=== PATIENT | female | born 1950 | race Caucasian/White ===

== ENCOUNTER 2019-03-05 07:14 | Day surgery (SDC) | payer MEDICARE ==
[~2019-03-05] VITALS: Ht 162.6 cm; Wt 109.1 kg
[2019-03-05] VITALS (9 sets, daily range): BP systolic 133–173; BP diastolic 63–83
[~2019-03-05 07:14] MED LIST: ACHD5005 PO; B/P PILL; CEPH500C PO; CYCL10TA9 PO; DICL75TA2 PO; FURO20TA4 PO; GLIP10TA13 PO; GUAI5LIQ3 PO; HYDR-4226 PO; HYDR-757 PO; HYDR12.56 PO; IBP800T PO; METF-397 PO; NF-SOLIF5T PO; OXYB5TAB9 PO; OXYC1TAB87 PO; POTA99TA21 PO; PRD10T PO; PRD20T PO; PROP1TAB77 PO; QUIN20TA PO; ROPI2TAB3 PO; TRAM50TA2 PO; VENL75TA2 PO; [UNRECOGNIZED DRUG - REMARK]
[2019-03-05] MEDS ORDERED: NS IV 1000 ML 1,000 ML IV STA (07:26)
[2019-03-05] MEDS ORDERED: fentaNYL INJECTION 100 MCG/2 ML AMP IVP STA ×2 (07:26→09:19)
[2019-03-05 07:30] LABS: BASOPHILS % (AUTO) 0 % (0-10); EOSINOPHILS % (AUTO) 0 % (0-10); HEMATOCRIT 41 % (35-52); HEMOGLOBIN 14.1 G/DL (11.5-16.0); LYMPHOCYTES # (AUTO) 1.4 X 10^3 (1.0-4.0); LYMPHOCYTES % (AUTO) 11 % (12-44); MEAN CORPUSCULAR HEMOGLOBIN 29 PG (25-34); MEAN CORPUSCULAR HGB CONC 34 G/DL (32-36); MEAN CORPUSCULAR VOLUME 84 FL (80-99); MEAN PLATELET VOLUME 9.5 FL (7.4-10.4); MONOCYTES # (AUTO) 0.6 X 10^3 (0.0-1.0); MONOCYTES % (AUTO) 5 % (0-12); NEUTROPHILS # (AUTO) 10.2 X 10^3 (1.8-7.8); NEUTROPHILS % (AUTO) 83 % (42-75); PLATELET COUNT 280 10^3/uL (130-400); RED CELL DISTRIBUTION WIDTH 14.2 % (10.0-14.5); WHITE BLOOD COUNT 12.2 10^3/uL (4.3-11.0)
[2019-03-05] MEDS ORDERED: ONDANSETRON 4 MG/2 ML (SDV) Z0FRAN IVP ONE (07:30)
[2019-03-05] MEDS ORDERED: ASPIRIN 81 MG CHEW (CHILDREN'S ASA) PO ONE (07:30)
[2019-03-05 07:42] LABS: INR 0.9 (0.8-1.4); PROTHROMBIN TIME PATIENT 12.9 SEC (12.2-14.7)
[2019-03-05 07:49] LABS: ALANINE AMINOTRANSFERASE 10 U/L (0-55); ALBUMIN 4.2 GM/DL (3.2-4.5); ALKALINE PHOSPHATASE 98 U/L (40-136); BILIRUBIN,TOTAL 0.4 MG/DL (0.1-1.0); BUN/CREATININE RATIO 17; CALCIUM 10.2 MG/DL (8.5-10.1); CARBON DIOXIDE 23 MMOL/L (21-32); CHLORIDE 101 MMOL/L (98-107); CREATININE SERUM 0.77 MG/DL (0.60-1.30); GFR ESTIMATED > 60; GLUCOSE 148 MG/DL (70-105); MAGNESIUM 1.5 MG/DL (1.8-2.4); SODIUM 137 MMOL/L (135-145); TOTAL PROTEIN 7.7 GM/DL (6.4-8.2)
--- NOTE | 2019-03-05 07:52 | ED Chest Pain ---
General Chief Complaint: Chest Pain Stated Complaint: CHEST PAIN Nursing Triage Note: PT PRESENTS TO ED FROM HOME WITH COMPLAINTS OF MEDIAL CP AND EPIGASTRIC PAIN THAT WRAPS AROUND TO HER BACK STARTING AT 1200 THIS AM. PT REPORTS SHE FIRST BECAME NAUSEATED AND STARTED VOMITING THEN SHE DEVELOPED THE CP. Nursing Sepsis Screen: No Definite Risk Source: patient Exam Limitations: no limitations History of Present Illness Date Seen by Provider: Mar 05, 2019 Time Seen by Provider: 07:19 Initial Comments Here with complaint of central chest pain and epigastric pain that radiates to her back. Started about midnight and has persisted until now. States that she at [employer] last night and tonight but then started having the pain a few hours later that has persisted. States that she has had nausea and vomiting. Pain seems to be more in the right upper quadrant and epigastric region now. Timing/Duration: other (8 hours) Severity/Quality: moderate, aching, pressure Location: central Radiation: back Activities at Onset: none Prior CP/Workup: no prior chest pain, no prior cardiac workup ASA po CONDEMNATION ENGINEER: No NTG SL CONDEMNATION ENGINEER: No Associated Symptoms: abdominal pain, back pain; No diaphoresis, No fever/chills; nausea/vomiting, shortness of breath, weakness Allergies and Home Medications Allergies Coded Allergies: codeine (Unverified Adverse Reaction, Severe, NAUSEA, 03/14/16) Home Medications Metformin HCl 500 Mg Tablet, 500 MG PO BID, (Reported) Oxycodone HCl/Acetaminophen 1 Each Tablet, 1 EACH PO Q4H Prescribed by: AURA CASTILLO on 03/22/161944 Quinapril HCl 20 Mg Tablet, 20 MG PO DAILY, (Reported) Venlafaxine HCl 75 Mg Tab.er.24, 75 MG PO DAILY, (Reported) Patient Home Medication List Home Medication List Reviewed: Yes Review of Systems Review of Systems Constitutional: see HPI; No chills, No fever EENTM: No Symptoms Reported Respiratory: See HPI; Denies Cough, Denies Wheezing Cardiovascular: Chest Pain; Denies Edema Gastrointestinal: See HPI, Abdominal Pain Genitourinary: No Symptoms Reported Musculoskeletal: see HPI, back pain; No muscle pain Skin: no symptoms reported Psychiatric/Neurological: No Symptoms Reported All Other Systems Reviewed Negative Unless Noted: Yes Past Sjyygqf-[id number]-Gxfqmg Hx Past Med/Social Hx: Reviewed Nursing Past Med/Soc Hx Patient Social History Alcohol Use: Denies Use Recreational Drug Use: No Smoking Status: Never a Smoker Recent Foreign Travel: No Contact w/Someone Who Travel: No Recent Infectious Disease Expo: No Recent Hopitalizations: No Immunizations Up To Date Tetanus Booster (TDap): Unknown Date of Pneumonia Vaccine: Aug 26, 2012 Date of Influenza Vaccine: May 26, 2015 Seasonal Allergies Seasonal Allergies: No Past Medical History Surgeries: Yes (LEFT CARPAL TUNNEL, RIGHT TOTAL KNEE) Orthopedic Respiratory: No Cardiac: Yes High Cholesterol, Hypertension Neurological: No Reproductive Disorders: No Female Reproductive Disorders: Denies 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 Sexually Transmitted Disease: No HIV/AIDS: No Genitourinary: Yes UTI-Chronic Gastrointestinal: Yes Gastroesophageal Reflux Musculoskeletal: Yes (PINCHED NERVE IN BACK, 2 BULGING DISCS, OSTEOARTHRITIS IN LEFT KNEE) Degenerate Disk Disease, Arthritis, Chronic Back Pain Endocrine: Yes Diabetes, Non-Insulin dep Loss of Vision: Bilateral Hearing Impairment: Denies Cancer: No Psychosocial: Yes Depression Integumentary: No Blood Disorders: No Adverse Reaction/Blood Tranf: No (N/A) Family Medical History Reviewed Nursing Family Hx Arthritis 19 MOTHER Cardiovascular disease 19 FATHER Dementia 19 MOTHER Diabetes mellitus 19 MOTHER G8 BROTHER Hypertension 19 MOTHER G8 BROTHER Physical Exam Vital Signs Vital Signs - First Documented 03/05/19 07:27 Temp 99.1 Pulse 59 Resp 18 B/P (MAP) 160/91 (114) Pulse Ox 97 O2 Delivery Room Air Capillary Refill : Less Than 3 Seconds Height, Weight, BMI Height: 5'4.00" Weight: 240lbs. 9.0oz. 109.739226fp; 42.2 BMI Method:Stated General Appearance: No Apparent Distress, Mild Distress HEENT: PERRL/EOMI, Pharynx Normal Neck: Non Tender, Supple Respiratory: Lungs Clear, Normal Breath Sounds Cardiovascular: Regular Rate, Rhythm, No Murmur Gastrointestinal: Soft, Tenderness (epigastric and right upper quadrant region) Extremity: Normal Inspection, Normal Range of Motion, Non Tender Neurologic/Psychiatric: Alert, Oriented x3 Skin: Normal Color, Warm/Dry Progress/Results/Core Measures Results/Orders Lab Results Laboratory Tests Test 03/05/19 07:20 Range/Units White Blood Count 12.2 H 4.3-11.0 10^3/uL Red Blood Count 4.92 4.35-5.85 10^6/uL Hemoglobin 14.1 11.5-16.0 G/DL Hematocrit 41 35-52 % Mean Corpuscular Volume 84 80-99 FL Mean Corpuscular Hemoglobin 29 25-34 PG Mean Corpuscular Hemoglobin Concent 34 32-36 G/DL Red Cell Distribution Width 14.2 10.0-14.5 % Platelet Count 280 130-400 10^3/uL Mean Platelet Volume 9.5 7.4-10.4 FL Neutrophils (%) (Auto) 83 H 42-75 % Lymphocytes (%) (Auto) 11 L 12-44 % Monocytes (%) (Auto) 5 0-12 % Eosinophils (%) (Auto) 0 0-10 % Basophils (%) (Auto) 0 0-10 % Neutrophils # (Auto) 10.2 H 1.8-7.8 X 10^3 Lymphocytes # (Auto) 1.4 1.0-4.0 X 10^3 Monocytes # (Auto) 0.6 0.0-1.0 X 10^3 Eosinophils # (Auto) 0.0 0.0-0.3 10^3/uL Basophils # (Auto) 0.0 0.0-0.1 10^3/uL Prothrombin Time 12.9 12.2-14.7 SEC INR Comment 0.9 0.8-1.4 Activated Partial Thromboplast Time 27 24-35 SEC Sodium Level 137 135-145 MMOL/L Potassium Level 4.0 3.6-5.0 MMOL/L Chloride Level 101 98-107 MMOL/L Carbon Dioxide Level 23 21-32 MMOL/L Anion Gap 13 5-14 MMOL/L Blood Urea Nitrogen 13 7-18 MG/DL Creatinine 0.77 0.60-1.30 MG/DL Estimat Glomerular Filtration Rate > 60 BUN/Creatinine Ratio 17 Glucose Level 148 H 70-105 MG/DL Calcium Level 10.2 H 8.5-10.1 MG/DL Corrected Calcium 10.0 8.5-10.1 MG/DL Magnesium Level 1.5 L 1.8-2.4 MG/DL Total Bilirubin 0.4 0.1-1.0 MG/DL Aspartate Amino Transf (AST/SGOT) 17 5-34 U/L Alanine Aminotransferase (ALT/SGPT) 10 0-55 U/L Alkaline Phosphatase 98 40-136 U/L Myoglobin 91.5 10.0-92.0 NG/ML Troponin I < 0.028 <0.028 NG/ML Total Protein 7.7 6.4-8.2 GM/DL Albumin 4.2 3.2-4.5 GM/DL Lipase 8 8-78 U/L My Orders Orders - CHRISTOPHER THOMPSON MD Cbc With Automated Diff (03/05/19 07:21) Magnesium (03/05/19 07:21) Chest 1 View, Ap/Pa Only (03/05/19 07:21) Ekg Tracing (03/05/19 07:21) Cardiac Profile 1 (03/05/19 07:21) Comprehensive Metabolic Panel (03/05/19 07:) Myoglobin Serum (03/05/19:) Protime With Inr (03/05/19:) Partial Thromboplastin Time (03/05/19 07:21) O2 (03/05/19 07:) Monitor-Rhythm Ecg Trace Only (03/05/19 07:) Lipid Panel (03/06/19 06:00) Ed Iv/Invasive Line Start (03/05/19 07:21) Aspirin Chewable Tablet (Baby Aspirin Ch (03/05/19 07:30) Ondansetron Injection (Zofran Injectio (03/05/19 07:30) Ns Iv 1000 Ml (Sodium Chloride 0.9%) (03/05/19 07:26) Fentanyl Injection (Sublimaze Injection (03/05/19 07:26) Lipase (03/05/19 07:26) Us Gallbladder [id number] (03/05/19 08:19) Fentanyl Injection (Sublimaze Injection (03/05/19 09:19) Medications Given in ED Current Medications Medications Dose Ordered Sig/Melvin Route Start Time Stop Time Status Last Admin Dose Admin Aspirin 324 mg ONCE ONCE PO 03/05/19 07:30 03/05/19 07:31 DC 03/05/19 07:39 324 MG Ondansetron HCl 4 mg ONCE ONCE IVP 03/05/19 07:30 03/05/19 07:31 DC 03/05/19 07:38 4 MG Vital Signs/I&O 03/05/19 03/05/19 07:27 07:27 Temp 99.1 Pulse 59 Resp 18 B/P (MAP) 160/91 (114) Pulse Ox 97 O2 Delivery Room Air Blood Pressure Mean: 114 Progress Progress Note : Progress Note Seen and evaluated. IV, labs, EKG and chest x-ray ordered. ASA 324 mg by mouth ordered. Zofran 4 mg IV, fentanyl 50 g IV and normal saline 1 L bolus ordered. Mixed picture presentation for abdominal and cardiac. We will evaluate both. 0922: Gallbladder ultrasound was ordered due to persistence of pain. This was positive for multiple stones including down to the gallbladder neck. I discussed the case with Dr. Smyth. Patient is requiring repeat dosing of pain medicine and 50 g of fentanyl IV was ordered. He will admit the patient and likely take her to the OR for cholecystectomy. This was discussed with the patient who agrees. Admit, SDC status. Initial ECG Impression Date: Mar 05, 2019 Initial ECG Impression Time: 07:20 Initial ECG Rate: 57 Initial ECG Rhythm: Normal Sinus Comment Sinus rhythm with right bundle branch block and left anterior fascicular block. This is changed from previous of 07 September 2015 although seems to be slight progression only. No evidence of ST elevation DE. Interpreted by me. Departure Communication (Admissions) Time/Spoke to Admitting Phy: 09:22 Impression Primary Impression: Cholelithiasis Qualified Codes: K80.20 - Calculus of gallbladder without cholecystitis without obstruction Additional Impression: Right upper quadrant abdominal pain Disposition: ADMITTED INPATIENT Condition: Stable Admissions Decision to Admit Reason: Admit from ER (General) Decision to Admit/Date: Mar 05, 2019 Time/Decision to Admit Time: 09:22 Departure-Patient Inst. Referrals: PHILIP CATHERINE MD (PCP) Primary Care Physician AARON DWYER (Family) Primary Care Physician CHRISTOPHER THOMPSON MD Mar 05, 2019 07:52
--- NOTE | 2019-03-05 08:16 | Diagnostic Imaging Report ---
Portable erect AP chest at 746 hours. INDICATION: Preop total knee replacement. FINDINGS: Heart size is within normal limits and stable when compared to 09/07/2015. The lungs are clear. There is no evidence for failure, pneumonia or for pleural effusion. Mediastinum is not widened. The osseous structures are intact. IMPRESSION: There is no evidence for active disease. Dictated by: Dictated on workstation # [id number]
--- NOTE | 2019-03-05 10:12 | Diagnostic Imaging Report ---
PROCEDURE: US Gallbladder. TECHNIQUE: Multiple real-time grayscale images were obtained over the right upper quadrant in various projections. INDICATION: Right upper quadrant pain. FINDINGS: The liver is measuring 20 cm, its echotexture mildly elevated. Mild steatosis suspected. No focal mass or mass effect. There are stones in the gallbladder. The majority of the stones showed mobility however a calculus at the level of the gallbladder neck was not mobile. The Weathers's sign was reportedly negative and there is no ascites or pericholecystic fluid. No distention of the intrahepatic bile ducts. The extrahepatic duct was obscured by gas as was the pancreas. The unobstructed right kidney appeared normal. The gallbladder wall was non-thickened. IMPRESSION: Cholelithiasis without biliary dilatation, likely mild hepatic steatosis. Dictated by: Dictated on workstation # [id number]
--- NOTE | 2019-03-05 10:17 | Progress Note-Pre Operative ---
Pre-Operative Progress Note H&P Reviewed The H&P was reviewed, patient examined and no changes noted. Date Seen by Provider: Mar 05, 2019 Time Seen by Provider: 10:15 Date H&P Reviewed: Mar 05, 2019 Time H&P Reviewed: 10:15 Pre-Operative Diagnosis: symptomatic chronic calculous cholecystitis KARLOS ALEJO MD Mar 05, 2019 10:17
--- OUTSIDE RECORDS SUMMARY | 2019-03-05 10:38 | XMS REPORT ---
Author Author Migration, Doctor Organization [facility] Address Unknown Phone Unavailable Care Team Providers Care Deputy Sheriff Custody Name Role Phone Migration, Doctor Unavailable Unavailable PROBLEMS Type Condition ICD9-CM Code DRF46-DS Code Onset Dates Condition Status SNOMED Code Problem Controlled restless leg syndrome G25.81 Active 30130282 Problem GERD (gastroesophageal reflux disease) K21.9 Active 078838703 Problem Mild single current episode of major depressive disorder F32.0 Active 24908789 Problem Recurrent major depressive disorder, in full remission F33.42 Active 54904176 Problem Benign essential HTN I10 Active 3810246 Problem Low back pain M54.5 Active 957622554 Problem Morbid (severe) obesity due to excess calories E66.01 Active 698140244 Problem OAB (overactive bladder) N32.81 Active 588296519 Problem Other chronic pain G89.29 Active 35202306 Problem Type 2 diabetes mellitus without complication, without long-term current use of insulin E11.9 Active [id number] ALLERGIES No Information ENCOUNTERS Encounter Location Date Diagnosis [place] [id number] [place] [address] Jan, Type 2 diabetes mellitus without complication, without long-term current use of insulin E11.9 ; Benign essential HTN I10 ; Low back pain M54.5 and Morbid obesity E66.01 [facility] [place] [id number] [place] [address] Jan, Degenerative arthritis of knee M17.9 [facility] [place] [address] [address] Jan, [facility] [place] [id number] [place] [address] Jan, [facility] [place] [address] [address] December, Degenerative arthritis of knee M17.9 [facility] [place] [id number] [place] [address] December, Type 2 diabetes mellitus with diabetic peripheral angiopathy without gangrene, without long-term current use of insulin E11.51 [facility] [place] [address] [place] [id number] [place] [address] December, [facility] [place] [address] [place] [address] [id number] [place] [address] December, Degenerative arthritis of knee M17.9 [facility] [place] [address] [place] [address] [id number] [place] [address] Nov, Mild single current episode of major depressive disorder F32.0 [facility] [place] [address] [place] [id number] [place] [address] Nov, Degenerative arthritis of knee M17.9 [facility] [place] [address] [place] [id number] [place] [address] Oct, Type 2 diabetes mellitus without complication, without long-term current use of insulin E11.9 ; Low back pain M54.5 ; Other chronic pain G89.29 ; Recurrent major depressive disorder, in full remission F33.42 and Benign essential HTN I10 [facility] [place] [id number] [place] [address] Oct, Degenerative arthritis of knee M17.9 [facility] [place] [address] [place] [id number] [place] [address] Sep, Degenerative arthritis of knee M17.9 [facility] [place] [address] [place] [address] [id number] [place] [address] Sep, [facility] [place] [address] [place] [id number] [place] [address] Aug, Degenerative arthritis of knee M17.9 [facility] [place] [id number] [place] [address] Aug, [facility] [address] [address] Jul, Dysuria R30.0 ; Acute cystitis without hematuria N30.00 ; Vaginal odor N89.8 and BMI 40.0-44.9, adult Z68.41 [place] [address] [address] Jul, [place] [address] [address] Jul, Degenerative arthritis of knee M17.9 [place] [address] [address] Jun, Degenerative arthritis of knee M17.9 [place] [address] [address] Jun, Degenerative arthritis of knee M17.9 [place] [address] [address] Jun, Benign essential HTN I10 ; Type 2 diabetes mellitus without complication, without long-term current use of insulin E11.9 ; Acute cystitis without hematuria N30.00 ; Low back pain M54.5 ; Other chronic pain G89.29 and BMI 40.0- 44.9, adult Z68.41 [place] [address] [address] May, Neuroma of foot D36.13 and 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 [place] [address] [address] May, Degenerative arthritis of knee M17.9 [place] [address] [address] May, Encounter for immunization Z23 [place] [address] [address] Apr, [place] [address] [address] Apr, Degenerative arthritis of knee M17.9 [facility] [place] [address] [address] Mar, Degenerative arthritis of knee M17.9 [facility] [place] [address] [place] [address] Mar, Type 2 diabetes mellitus with diabetic peripheral angiopathy without gangrene, without long-term current use of insulin E11.51 ; Benign essential HTN I10 ; Degenerative arthritis of knee M17.9 and Mild single current episode of major depressive disorder F32.0 [facility] [place] [address] [place] [id number] [place] [address] Feb, [place] [address] [place] [id number] [place] [address] Feb, Degenerative arthritis of knee M17.9 [place] [address] [place] [id number] [place] [address] Feb, [facility] [place] [address] [place] [id number] [place] [address] Jan, Degenerative arthritis of knee M17.9 [place] [address] [place] [id number] [place] [address] Jan, Herpes zoster without complication B02.9 and BMI 40.0-44.9, adult Z68.41 [place] [address] [place] [address] December, Degenerative arthritis of knee M17.9 [place] [address] [address] Nov, Benign essential HTN I10 ; Type 2 diabetes mellitus with diabetic peripheral angiopathy without gangrene, without long-term current use of insulin E11.51 ; Mild single current episode of major depressive disorder F32.0 ; Degenerative arthritis of knee M17.9 ; OAB (overactive bladder) N32.81 ; Body mass index (BMI) of 40.0-44.9 in adult Z68.41 ; BMI 40.0-44.9, adult Z68.41 and GERD (gastroesophageal reflux disease) K21.9 [place] [address] [place] [address] Nov, [place] [address] [place] [id number] [place] [address] Oct, Degenerative arthritis of knee M17.9 [place] [address] [place] [id number] [place] [address] Oct, [place] [address] [place] [id number] [place] [address] Oct, Type 2 diabetes mellitus with diabetic peripheral angiopathy without gangrene, without long-term current use of insulin E11.51 and Controlled substance agreement signed Z79.899 [place] [address] [place] [id number] [place] [address] Oct, Degenerative arthritis of knee M17.9 [place] [address] [place] [id number] [place] [address] Sep, Type 2 diabetes mellitus with diabetic peripheral angiopathy without gangrene, without long-term current use of insulin E11.51 ; Benign essential HTN I10 ; BMI 40.0-44.9, adult Z68.41 ; Mild single current episode of major depressive disorder F32.0 ; OAB (overactive bladder) N32.81 ; Degenerative arthritis of knee M17.9 and GERD (gastroesophageal reflux disease) K21.9 [place] [address] [place] [address] Aug, Joint pain and swelling due to Lyme disease A69.20 [place] [address] [place] [id number] [place] [address] Jun, [place] [address] [place] [id number] [place] [address] May, 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 ; Benign essential HTN I10 ; 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 ; Body mass index (BMI) of 40.0-44.9 in adult Z68.41 and Morbid (severe) obesity due to excess calories E66.01 [place] [address] [place] [id number] [place] [address] May, Encounter for immunization Z23 [place] [address] [place] [id number] [place] [address] May, 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 [place] [address] [place] [id number] [place] [address] Mar, Mild single current episode of major depressive disorder F32.[address] [address] Mar, Joint pain and swelling due to Lyme disease A69.20 [place] [id number] [place] [address] Feb, Izzy infection B37.9 [place] [id number] [place] [address] Jan, Insect bite (nonvenomous) of abdominal wall, initial encounter S30.861A and Joint pain and swelling due to Lyme disease A69.20 [place] [address] [place] [id number] [place] [address] Jan, [place] [address] [place] [id number] [place] [address] Sep, Mild single current episode of major depressive disorder F32.0 and 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 [place] [address] [place] [address] Sep, Controlled restless leg syndrome G25.81 and Cramp of both lower extremities R25.2 [place] [address] [place] [id number] [place] [address] Aug, 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 ; Controlled restless leg syndrome G25.81 ; SI (stress incontinence), female N39.3 ; Benign essential HTN I10 ; 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 ; GERD (gastroesophageal reflux disease) K21.9 ; Screening cholesterol level Z13.220 and Mild single current episode of major depressive disorder F32.0 [place] [address] [address] 11 Aug, 2016 [place] [address] [place] [id number] [place] [address] May, [place] [address] [place] [id number] [place] [address] May, Encounter for immunization Z23 [place] [address] [address] Apr, [place] [address] [place] [id number] [place] [address] Apr, [place] [address] [place] [id number] [place] [address] Apr, SAMANTHA (secretory otitis media), right H65.91 ; 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 ; Controlled restless leg syndrome G25.81 ; Edema extremities R60.0 ; SI (stress incontinence), female N39.3 ; Benign essential HTN I10 ; Degenerative arthritis of knee M17.9 and Major depressive disorder with single episode, remission status unspecified F32.9 [place] [address] [place] [id number] [place] [address] Apr, OME (otitis media with effusion), right H65.91 [place] [address] [place] [id number] [place] [address] Mar, [place] [address] [place] [id number] [place] [address] Mar, 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 ; Controlled restless leg syndrome G25.81 ; SI (stress incontinence), female N39.3 ; Benign essential HTN I10 ; GERD (gastroesophageal reflux disease) K21.9 ; Knee pain M25.569 and Major depressive disorder with single episode, remission status unspecified F32.9 [place] [address] [place] [address] Mar, [place] [address] [place] [id number] [place] [address] Mar, [place] [address] [place] [id number] [place] [address] Jan, Pre-op exam Z01.818 [place] [address] [place] [id number] [place] [address] Oct, Urinary tract infection N39.0 ; Benign essential HTN I10 ; Controlled restless leg syndrome G25.81 ; Edema extremities R60.0 ; Degenerative arthritis of knee M17.9 and GERD (gastroesophageal reflux disease) K21.9 [place] [address] [place] [id number] [place] [address] Oct, Izzy albicans infection B37.9 [place] [address] [place] [id number] [place] [address] Sep, [place] [address] [place] [id number] [place] [address] Sep, UTI (urinary tract infection) N39.0 ; Benign essential HTN I10 ; 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 ; Controlled restless leg syndrome G25.81 ; Edema extremities R60.0 ; SI (stress incontinence), female N39.3 and 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 [place] [address] [place] [address] Sep, UTI (urinary tract infection) N39.0 [place] [address] [address] Aug, Pre-op evaluation Z01.818 [place] [address] [place] [id number] [place] [address] Aug, [place] [address] [place] [id number] [place] [address] Aug, [place] [address] [place] [id number] [place] [address] Jul, Right hip pain M25.551 ; 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 and Knee pain M25.569 [place] [address] [address] Jul, [place] [address] [place] [id number] [place] [address] Jun, Knee pain M25.569 ; 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 and Degenerative arthritis of knee M17.9 [place] [id number] [place] [address] Jun, [place] [address] [place] [id number] [place] [address] Apr, Diabetes mellitus 250.00 ; Influenza vaccine administered V04.81 ; Incontinence 788.30 ; Restless legs syndrome 333.94 ; Sciatica 724.3 ; Essential hypertension, benign 401.1 ; Edema 782.3 and Depression (emotion) 311 [place] [address] [place] [id number] [place] [address] Mar, Pain in joint, lower leg 719.46 and Sciatica 724.3 [place] [address] [place] [id number] [place] [address] Mar, [address] [address] Feb, Pain in joint, site unspecified 719.40 ; Other urinary incontinence 788.39 ; Pain in joint, lower leg 719.46 ; Edema 782.3 ; Sciatica 724.3 ; Essential hypertension, benign 401.1 ; Depression 311 ; Diabetes mellitus 250.00 ; Incontinence 788.30 and Restless legs syndrome 333.94 [facility] [address] [facility] [id number] [place] [address] Feb, [facility] [address] [facility] [id number] [address] Nov, [facility] [address] [facility] [id number] [address] Nov, [facility] [address] [id number] [place] [address] Oct, [facility] [address] [id number] [place] [address] Oct, [facility] [address] [facility] [id number] [address] Aug, [facility] [address] [address] Aug, [facility] [address] [place] [id number] [address] Aug, [facility] [address] [place] [id number] [address] Aug, [facility] [address] [place] [id number] [address] Aug, [facility] [address] [address] Aug, [facility] [address] [facility] [id number] [address] Jun, [facility] [address] [facility] [id number] [place] [address] Jun, [facility] [address] [facility] [id number] [place] [address] Jun, [facility] [address] [place] [id number] [address] Jun, [facility] [place] [facility] [address] [facility] [id number] [place] [address] Jun, [facility] [place] [facility] [address] [id number] [place] [address] Jun, [facility] [place] [facility] [address] [id number] [place] [address] May, [facility] [place] [facility] [address] [id number] [place] [address] May, [facility] [place] [facility] [address] [id number] [place] [address] May, [facility] [place] [facility] [address] [id number] [place] [address] May, [facility] [place] [facility] [address] [id number] [place] [address] Apr, [facility] [place] [facility] [address] [id number] [place] [address] Apr, [facility] [place] [facility] [address] [id number] [place] [address] Apr, [facility] [place] [facility] [address] [id number] [place] [address] Apr, [facility] [place] [facility] [address] [id number] [place] [address] Mar, [facility] [place] [facility] [address] [id number] [place] [address] Mar, [facility] [place] [facility] [address] [id number] [place] [address] Mar, [facility] [place] [facility] [address] [id number] [place] [address] Mar, [facility] [place] [facility] [address] [id number] [place] [address] Mar, [facility] [place] [facility] [address] [id number] [place] [address] Mar, [facility] [place] [facility] [address] [id number] [place] [address] Feb, [facility] [place] [facility] [address] [id number] [place] [address] Feb, [facility] [place] [facility] [address] [id number] [place] [address] Jan, [facility] [place] [facility] [address] [id number] [place] [address] Jan, [facility] [place] [facility] [address] [id number] [place] [address] Jan, [facility] [place] [facility] [address] [id number] [place] [address] Jan, [facility] [place] [facility] [address] [id number] [place] [address] December, [facility] [place] [facility] [address] [id number] [place] [address] December, [facility] [place] [facility] [address] [id number] [place] [address] December, [facility] [place] [facility] [address] [id number] [place] [address] December, [facility] [place] [facility] [address] [id number] [place] [address] December, [facility] [place] [facility] [address] [id number] [place] [address] December, [facility] [place] [facility] [address] [id number] [place] [address] December, [facility] [place] [facility] [address] [id number] [place] [address] December, [facility] [place] [facility] [address] [id number] [place] [address] Nov, [facility] [place] [facility] [address] [id number] [place] [address] Nov, [facility] [place] [facility] [address] [id number] [place] [address] Nov, [facility] [place] [facility] [address] [id number] [place] [address] Nov, [facility] [place] [facility] [address] [id number] [place] [address] Oct, [facility] [place] [facility] [address] [id number] [place] [address] Oct, [facility] [place] [facility] [address] [id number] [place] [address] Oct, [facility] [place] [facility] [address] [id number] [place] [address] Oct, [facility] [place] [facility] [address] [id number] [place] [address] Oct, [facility] [place] [facility] [address] [id number] [place] [address] Oct, [facility] [place] [facility] [address] [id number] [place] [address] Oct, [facility] [place] [facility] [address] [id number] [place] [address] Oct, [facility] [place] [facility] [address] [id number] [place] [address] Sep, [facility] [place] [facility] [address] [id number] [place] [address] Sep, [facility] [place] [facility] [address] [id number] [place] [address] Sep, [facility] [place] [facility] [address] [id number] [place] [address] Sep, [facility] [place] [facility] [address] [id number] [place] [address] Sep, [facility] [place] [facility] [address] [id number] [place] [address] Aug, [facility] [place] [facility] [address] [id number] [place] [address] Aug, [facility] [place] [facility] [address] [id number] [place] [address] Jul, [facility] [place] [facility] [address] [id number] [place] [address] Jul, [facility] [address] [id number] [place] [address] Jul, [facility] [place] [facility] [address] [id number] [place] [address] Jul, [facility] [address] [id number] [place] [address] Jul, [facility] [address] [id number] [place] [address] Jul, [facility] [place] [facility] [address] [id number] [place] [address] Jul, [facility] [place] [facility] [address] [id number] [place] [address] Jun, [facility] [place] [facility] [address] [id number] [place] [address] Jun, [facility] [place] [facility] [address] [id number] [address] Jun, [facility] [place] [facility] [address] [id number] [place] [address] Jun, [facility] [place] [facility] [address] [id number] [place] [address] Jun, [facility] [place] [facility] [address] [id number] [address] Jun, [facility] [place] [facility] [address] [id number] [address] Jun, [facility] [place] [facility] [address] [id number] [place] [address] Jun, [facility] [place] [facility] [address] [id number] [address] Jun, [facility] [place] [facility] [address] [id number] [place] [address] Jun, [facility] [place] [facility] [address] [id number] [address] Jun, [facility] [place] [facility] [address] [id number] [place] [address] Jun, [facility] [place] [facility] [address] [id number] [place] [address] Jun, [facility] [place] [facility] [address] [id number] [place] [address] May, [facility] [place] [facility] [address] [id number] [place] [address] May, [facility] [place] [facility] [address] [id number] [address] May, [facility] [place] [facility] [address] [id number] [address] May, [facility] [place] [facility] [address] [id number] [place] [address] May, [facility] [place] [facility] [address] [id number] [address] 11 May, 2013 [facility] [place] [facility] [address] [id number] [place] [address] 10 May, 2013 [facility] [place] [facility] [address] [id number] [address] 10 May, 2013 [facility] [place] [facility] [address] [id number] [address] 09 May, 2013 [facility] [place] [facility] [address] [id number] [place] [address] 23 Apr, 2013 [facility] [address] [id number] [place] [address] 21 Apr, 2013 [facility] [place] [facility] [address] [id number] [place] [address] 11 Apr, 2013 [facility] [address] [id number] [place] [address] 09 Apr, 2013 [facility] [place] [facility] [address] [id number] [place] [address] 15 Mar, 2013 [facility] [address] [id number] [place] [address] 14 Mar, 2013 [facility] [place] [facility] [address] [id number] [place] [address] Mar, [facility] [address] [id number] [place] [address] Jan, [facility] [address] [id number] [place] [address] Jan, [facility] [place] [facility] [address] [id number] [place] [address] Jan, [facility] [address] [id number] [place] [address] Jan, [facility] [place] [facility] [address] [id number] [place] [address] December, [facility] [place] [facility] [address] [id number] [place] [address] Nov, [facility] [place] [facility] [address] [id number] [place] [address] Nov, [facility] [place] [facility] [address] [id number] [place] [address] 19 Sep, 2012 [facility] [place] [facility] [address] [id number] [place] [address] 13 Sep, 2012 [facility] [place] [facility] [address] [id number] [place] [address] Sep, [facility] [place] [facility] [address] [id number] [place] [address] Aug, [facility] [place] [facility] [address] [id number] [place] [address] Aug, [facility] [place] [facility] [address] [id number] [place] [address] Aug, [facility] [place] [facility] [address] [id number] [place] [address] Aug, [facility] [place] [facility] [address] [id number] [place] [address] Aug, [facility] [place] [facility] [address] [id number] [place] [address] Aug, [facility] [place] [facility] [address] [id number] [place] [address] Aug, [facility] [place] [facility] [address] [id number] [place] [address] Jul, [facility] [place] [facility] [address] [id number] [place] [address] Jul, [facility] [place] [facility] [address] [id number] [address] Jun, [facility] [place] [facility] [address] [id number] [place] [address] Jun, [facility] [place] [facility] [address] [id number] [place] [address] May, [facility] [place] [facility] [address] [id number] [address] May, [facility] [place] [facility] [address] [id number] [place] [address] May, [facility] [place] [facility] [address] [id number] [place] [address] 23 May, 2012 [facility] [address] [id number] [place] [address] 26 Apr, 2012 [facility] [place] [facility] [address] [id number] [place] [address] 24 Apr, 2012 [facility] [address] [id number] [place] [address] 21 Apr, 2012 [facility] [place] [facility] [address] [id number] [place] [address] 20 Apr, 2012 [facility] [place] [facility] [address] [id number] [place] [address] 20 Apr, 2012 [facility] [place] [facility] [address] [id number] [place] [address] 19 Apr, 2012 [facility] [address] [id number] [place] [address] 12 Apr, 2012 [facility] [address] [id number] [place] [address] Mar, [facility] [place] [facility] [address] [id number] [place] [address] December, [facility] [address] [id number] [place] [address] December, [facility] [place] [facility] [address] [id number] [place] [address] December, [facility] [place] [facility] [address] [id number] [place] [address] Sep, [facility] [place] [facility] [address] [id number] [place] [address] Sep, [facility] [place] [facility] [address] [id number] [place] [address] Aug, [facility] [place] [facility] [address] [id number] [place] [address] Aug, [facility] [place] [address] [id number] [address] Aug, [facility] [place] [id number] [address] Jun, [facility] [place] [id number] [address] Jun, [facility] [place] [id number] [address] Jun, [facility] [place] [id number] [address] Jun, [facility] [place] [id number] [address] Mar, [facility] [place] [id number] [address] Jan, [facility] [place] [address] [id number] [address] December, IMMUNIZATIONS No Known Immunizations SOCIAL HISTORY Never Assessed REASON FOR VISIT PLAN OF CARE VITAL SIGNS MEDICATIONS No Known Medications RESULTS No Results PROCEDURES No Known procedures INSTRUCTIONS MEDICATIONS ADMINISTERED No Known Medications MEDICAL (GENERAL) HISTORY Type Description Date Medical History Hypertension Medical History Neuropathy Medical History Diabetes Medical History Restless leg syndrome Surgical History carpal tunnel left hand. Surgical History Right Knee Surgery Surgical History Left Knee SOA 03/21/16 Hospitalization History Left Knee SOA 03/21/16
--- OUTSIDE RECORDS SUMMARY | 2019-03-05 10:39 | XMS REPORT ---
Author Author Migration, Doctor Organization [facility] Address Unknown Phone Unavailable Care Team Providers Care Surgical Supervisor Name Role Phone Migration, Doctor Unavailable Unavailable PROBLEMS Type Condition ICD9-CM Code YLB48-OF Code Onset Dates Condition Status SNOMED Code Problem Controlled restless leg syndrome G25.81 Active 83844787 Problem GERD (gastroesophageal reflux disease) K21.9 Active 559022640 Problem Mild single current episode of major depressive disorder F32.0 Active 65225803 Problem Recurrent major depressive disorder, in full remission F33.42 Active 60298688 Problem Benign essential HTN I10 Active 2105690 Problem Low back pain M54.5 Active 525299871 Problem Morbid (severe) obesity due to excess calories E66.01 Active 903075162 Problem OAB (overactive bladder) N32.81 Active 532446244 Problem Other chronic pain G89.29 Active 51303986 Problem Type 2 diabetes mellitus without complication, without long-term current use of insulin E11.9 Active 661869108 ALLERGIES Substance Reaction Event Type Date Status Hydrocodone Unknown Non Drug Allergy Nov, Active ENCOUNTERS Encounter Location Date Diagnosis [place] [id number] [place] [address] Jan, [facility] [address] [id number] [place] [address] Jan, [facility] [id number] [place] [address] Jan, [facility] [id number] [place] [address] December, Degenerative arthritis of knee M17.9 [facility] [id number] [place] [address] December, Type 2 diabetes mellitus with diabetic peripheral angiopathy without gangrene, without long-term current use of insulin E11.51 [place] [address] [id number] [place] [address] December, [place] [address] [address] December, Degenerative arthritis of knee M17.9 [place] [address] [address] [id number] [place] [address] Nov, Mild single current episode of major depressive disorder F32.0 [place] [address] [address] Nov, Degenerative arthritis of knee M17.9 [place] [address] [address] Oct, Type 2 diabetes mellitus without complication, without long-term current use of insulin E11.9 ; Low back pain M54.5 ; Other chronic pain G89.29 ; Recurrent major depressive disorder, in full remission F33.42 and Benign essential HTN I10 [place] [address] [id number] [place] [address] Oct, Degenerative arthritis of knee M17.9 [place] [address] [address] [id number] [place] [address] Sep, Degenerative arthritis of knee M17.9 [place] [address] [id number] [place] [address] Sep, [place] [address] [id number] [place] [address] Aug, Degenerative arthritis of knee M17.9 [place] [address] [id number] [place] [address] Aug, [facility] [id number] [place] [address] Jul, Dysuria R30.0 ; Acute cystitis without hematuria N30.00 ; Vaginal odor N89.8 and BMI 40.0-44.9, adult Z68.41 [place] [address] [address] [id number] [place] [address] Jul, [place] [address] [address] Jul, Degenerative arthritis of knee M17.9 [place] [address] [address] Jun, Degenerative arthritis of knee M17.9 [place] [address] [address] Jun, Degenerative arthritis of knee M17.9 [place] [address] [address] 05 Jun, 2018 Benign essential HTN I10 ; Type 2 diabetes mellitus without complication, without long-term current use of insulin E11.9 ; Acute cystitis without hematuria N30.00 ; Low back pain M54.5 ; Other chronic pain G89.29 and BMI 40.0- 44.9, adult Z68.41 [place] [address] [address] May, Neuroma of foot D36.13 and 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 [place] [address] [address] [id number] [place] [address] 17 May, 2018 Degenerative arthritis of knee M17.9 [place] [address] [address] [id number] [place] [address] May, Encounter for immunization Z23 [place] [address] [address] [id number] [place] [address] Apr, [place] [address] [address] Apr, Degenerative arthritis of knee M17.9 [place] [address] [address] [id number] [place] [address] Mar, Degenerative arthritis of knee M17.9 [place] [address] [place] [address] Mar, Type 2 diabetes mellitus with diabetic peripheral angiopathy without gangrene, without long-term current use of insulin E11.51 ; Benign essential HTN I10 ; Degenerative arthritis of knee M17.9 and Mild single current episode of major depressive disorder F32.0 [place] [address] [place] [address] [id number] [place] [address] Feb, [facility] [id number] [place] [address] Feb, Degenerative arthritis of knee M17.9 [place] [address] [address] [id number] [place] [address] Feb, [place] [address] [id number] [place] [address] Jan, Degenerative arthritis of knee M17.9 [place] [address] [address] [id number] [place] [address] Jan, Herpes zoster without complication B02.9 and BMI 40.0-44.9, adult Z68.41 [place] [address] [address] [id number] [place] [address] December, Degenerative arthritis of knee M17.9 [place] [address] [address] [id number] [place] [address] Nov, Benign essential HTN I10 ; Type [...] Z68.41 and GERD (gastroesophageal reflux disease) K21.9 [facility] [address] [id number] [place] [address] Nov, [place] [address] [place] [address] Oct, Degenerative arthritis of knee M17.9 [place] [address] [address] [id number] [place] [address] Oct, [place] [address] [address] [id number] [place] [address] Oct, Type 2 diabetes mellitus with diabetic peripheral angiopathy without gangrene, without long-term current use of insulin E11.51 and Controlled substance agreement signed Z79.899 [place] [address] [address] [id number] [place] [address] Oct, Degenerative arthritis of knee M17.9 [place] [address] [address] [id number] [place] [address] Sep, Type 2 diabetes mellitus with diabetic peripheral angiopathy without gangrene, without long-term current use of insulin E11.51 ; Benign essential HTN I10 ; BMI 40.0-44.9, adult Z68.41 ; Mild single current episode of major depressive disorder F32.0 ; OAB (overactive bladder) N32.81 ; Degenerative arthritis of knee M17.9 and GERD (gastroesophageal reflux disease) K21.9 [place] [address] [address] [id number] [place] [address] Aug, Joint pain and swelling due to Lyme disease A69.20 [place] [address] [address] [id number] [place] [address] Jun, [place] [address] [address] [id number] [place] [address] May, 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 ; Benign essential HTN I10 ; 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 ; Body mass index (BMI) of 40.0-44.9 in adult Z68.41 and Morbid (severe) obesity due to excess calories E66.01 [place] [address] [place] [id number] [place] [address] May, Encounter for immunization Z23 [place] [address] [place] [address] May, 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 [place] [address] [place] [id number] [place] [address] Mar, Mild single current episode of major depressive disorder F32.0 [place] [address] [address] Mar, Joint pain and swelling due to Lyme disease A69.20 [place] [address] [place] [id number] [place] [address] Feb, Izzy infection B37.9 [place] [address] [place] [id number] [place] [address] Jan, Insect bite (nonvenomous) of abdominal wall, initial encounter S30.861A and Joint pain and swelling due to Lyme disease A69.20 [place] [address] [place] [id number] [place] [address] Jan, [place] [id number] [place] [address] Sep, Mild single current episode of major depressive disorder F32.0 and 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 [place] [address] [place] [address] Sep, Controlled restless leg syndrome G25.81 and Cramp of both lower extremities R25.2 [place] [address] [place] [address] Aug, 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 ; Controlled restless leg syndrome G25.81 ; SI (stress incontinence), female N39.3 ; Benign essential HTN I10 ; 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 ; GERD (gastroesophageal reflux disease) K21.9 ; Screening cholesterol level Z13.220 and Mild single current episode of major depressive disorder F32.0 [place] [address] [address] 11 Aug, 2016 [facility] [id number] [place] [address] May, [facility] [address] [address] May, Encounter for immunization Z23 [facility] [address] [id number] [place] [address] Apr, [place] [address] [address] [id number] [place] [address] Apr, [place] [address] [address] [id number] [place] [address] Apr, SAMANTHA (secretory otitis media), right H65.91 ; 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 ; Controlled restless leg syndrome G25.81 ; Edema extremities R60.0 ; SI (stress incontinence), female N39.3 ; Benign essential HTN I10 ; Degenerative arthritis of knee M17.9 and Major depressive disorder with single episode, remission status unspecified F32.9 [place] [address] [place] [address] Apr, OME (otitis media with effusion), right H65.91 [place] [address] [address] Mar, [place] [address] [place] [address] [id number] [place] [address] Mar, 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 ; Controlled restless leg syndrome G25.81 ; SI (stress incontinence), female N39.3 ; Benign essential HTN I10 ; GERD (gastroesophageal reflux disease) K21.9 ; Knee pain M25.569 and Major depressive disorder with single episode, remission status unspecified F32.9 [place] [address] [place] [address] Mar, [facility] [address] [place] [address] Mar, [facility] [address] [address] Jan, Pre-op exam Z01.818 [place] [address] [address] Oct, Urinary tract infection N39.0 ; Benign essential HTN I10 ; Controlled restless leg syndrome G25.81 ; Edema extremities R60.0 ; Degenerative arthritis of knee M17.9 and GERD (gastroesophageal reflux disease) K21.9 [place] [address] [address] Oct, Izzy albicans infection B37.9 [place] [address] [address] Sep, [place] [address] [place] [address] Sep, UTI (urinary tract infection) N39.0 ; Benign essential HTN I10 ; 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 ; Controlled restless leg syndrome G25.81 ; Edema extremities R60.0 ; SI (stress incontinence), female N39.3 and 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 [place] [address] [address] Sep, UTI (urinary tract infection) N39.0 [place] [address] [place] [id number] [address] Aug, Pre-op evaluation Z01.818 [place] [address] [place] [address] Aug, [place] [address] [place] [address] Aug, [place] [address] [place] [id number] [place] [address] Jul, Right hip pain M25.551 ; 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 and Knee pain M25.569 [place] [address] [place] [id number] [place] [address] Jul, [place] [address] [address] Jun, Knee pain M25.569 ; 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 and Degenerative arthritis of knee M17.9 [place] [address] [address] Jun, [place] [address] [place] [id number] [place] [address] Apr, Diabetes mellitus 250.00 ; Influenza vaccine administered V04.81 ; Incontinence 788.30 ; Restless legs syndrome 333.94 ; Sciatica 724.3 ; Essential hypertension, benign 401.1 ; Edema 782.3 and Depression (emotion) 311 [place] [address] [address] [id number] [place] [address] Mar, Pain in joint, lower leg 719.46 and Sciatica 724.3 [place] [address] [place] [id number] [place] [address] Mar, [place] [address] [address] Feb, Pain in joint, site unspecified 719.40 ; Other urinary incontinence 788.39 ; Pain in joint, lower leg 719.46 ; Edema 782.3 ; Sciatica 724.3 ; Essential hypertension, benign 401.1 ; Depression 311 ; Diabetes mellitus 250.00 ; Incontinence 788.30 and Restless legs syndrome 333.94 [place] [address] [place] [id number] [place] [address] Feb, [place] [address] [address] 14 Nov, 2014 [facility] [place] [facility] [address] [id number] [place] [address] Nov, [facility] [place] [facility] [address] [id number] [place] [address] Oct, [facility] [place] [facility] [address] [id number] [place] [address] Oct, [facility] [place] [facility] [address] [id number] [place] [address] Aug, [facility] [place] [facility] [address] [id number] [place] [address] Aug, [facility] [place] [facility] [address] [id number] [place] [address] Aug, [facility] [place] [facility] [address] [id number] [place] [address] Aug, [facility] [place] [facility] [address] [id number] [place] [address] Aug, [facility] [place] [facility] [address] [id number], [place] [address] Aug, [facility] [place] [facility] [address] [id number] [place] [address] Jun, [facility] [place] [facility] [address] [id number], [place] [address] Jun, [facility] [place] [facility] [address] [id number], [place] [address] Jun, [facility] [place] [facility] [address] [id number] [place] [address] Jun, [facility] [place] [facility] [address] [id number] [place] [address] Jun, [facility] [place] [facility] [address] [id number] [place] [address] Jun, [facility] [place] [facility] [address] [id number] [place] [address] May, [facility] [place] [facility] [address] [id number] [place] [address] 31 May, 2014 [facility] [place] [facility] [address] [id number] [place] [address] May, [facility] [place] [facility] [address] [id number] [place] [address] May, [facility] [place] [facility] [address] [id number] [place] [address] Apr, [facility] [place] [facility] [address] [id number] [place] [address] Apr, [facility] [place] [facility] [address] [id number] [place] [address] 17 Apr, 2014 [facility] [place] [facility] [address] [id number] [place] [address] Apr, [facility] [place] [facility] [address] [id number] [place] [address] Mar, [facility] [place] [facility] [address] [id number] [place] [address] Mar, [facility] [place] [facility] [address] [id number] [place] [address] Mar, [facility] [place] [facility] [address] [id number] [place] [address] Mar, [facility] [place] [facility] [address] [id number] [place] [address] Mar, [facility] [place] [facility] [address] [id number] [place] [address] Mar, [facility] [place] [facility] [address] [id number] [place] [address] Feb, [facility] [place] [facility] [address] [id number] [place] [address] Feb, [facility] [place] [facility] [address] [id number] [place] [address] Jan, [facility] [place] [facility] [address] [id number] [place] [address] Jan, [facility] [place] [facility] [address] [id number] [place] [address] Jan, [facility] [place] [facility] [address] [id number] [place] [address] Jan, [facility] [place] [facility] [address] [id number] [place] [address] December, [facility] [place] [facility] [address] [id number] [place] [address] December, [facility] [place] [facility] [address] [id number] [place] [address] December, [facility] [place] [facility] [address] [id number] [place] [address] December, [facility] [place] [facility] [address] [id number] [place] [address] December, [facility] [place] [facility] [address] [id number] [place] [address] December, [facility] [place] [facility] [address] [id number] [place] [address] December, [facility] [place] [facility] [address] [id number] [place] [address] December, [facility] [place] [facility] [address] [id number] [place] [address] Nov, [facility] [place] [facility] [address] [id number] [place] [address] Nov, [facility] [place] [facility] [address] [id number] [place] [address] Nov, [facility] [place] [facility] [address] [id number] [place] [address] Nov, [facility] [place] [facility] [address] [id number] [place] [address] Oct, [facility] [place] [facility] [address] [id number] [place] [address] Oct, [facility] [place] [facility] [address] [id number] [place] [address] Oct, [facility] [place] [facility] [address] [id number] [place] [address] Oct, [facility] [place] [facility] [address] [id number] [place] [address] Oct, [facility] [place] [facility] [address] [id number] [place] [address] Oct, [facility] [place] [facility] [address] [id number] [place] [address] Oct, [facility] [place] [facility] [address] [id number] [place] [address] Oct, [facility] [place] [facility] [address] [id number] [place] [address] Sep, [facility] [place] [facility] [address] [id number] [place] [address] Sep, [facility] [place] [facility] [address] [id number] [place] [address] Sep, [facility] [place] [facility] [address] [id number] [place] [address] Sep, [facility] [place] [facility] [address] [id number] [place] [address] Sep, [facility] [place] [facility] [address] [id number] [place] [address] Aug, [facility] [place] [facility] [address] [id number] [place] [address] Aug, [facility] [place] [facility] [address] [id number] [place] [address] Jul, [facility] [place] [facility] [address] [id number] [place] [address] Jul, [facility] [place] [facility] [address] [id number] [place] [address] Jul, [facility] [place] [facility] [address] [id number] [place] [address] Jul, [facility] [address] [id number] [place] [address] Jul, [facility] [place] [facility] [address] [id number] [place] [address] Jul, [facility] [address] [id number] [place] [address] Jul, [facility] [address] [id number] [place] [address] Jun, [facility] [place] [facility] [address] [id number] [place] [address] Jun, [facility] [place] [facility] [address] [id number], [place] [address] Jun, [facility] [place] [facility] [address] [id number] [place] [address] Jun, [facility] [place] [facility] [address] [id number], [place] [address] Jun, [facility] [place] [facility] [address] [id number] [place] [address] Jun, [facility] [place] [facility] [address] [id number] [place] [address] Jun, [facility] [place] [facility] [address] [id number], [place] [address] Jun, [facility] [place] [facility] [address] [id number], [place] [address] Jun, [facility] [place] [facility] [address] [id number] [place] [address] Jun, [facility] [place] [facility] [address] [id number], [place] [address] Jun, [facility] [place] [facility] [address] [id number] [place] [address] Jun, [facility] [place] [facility] [address] [id number], [place] [address] Jun, [facility] [place] [facility] [address] [id number] [place] [address] May, [facility] [place] [facility] [address] [id number] [place] [address] May, [facility] [place] [facility] [address] [id number], [place] [address] May, [facility] [place] [facility] [address] [id number] [place] [address] May, [facility] [place] [facility] [address] [id number], [place] [address] May, [facility] [place] [facility] [address] [id number], [place] [address] May, [facility] [place] [facility] [address] [id number], [place] [address] May, [facility] [place] [facility] [address] [id number], [place] [address] 10 May, 2013 [facility] [place] [facility] [address] [id number], [place] [address] 09 May, 2013 [facility] [place] [facility] [address] [id number], [place] [address] 23 Apr, 2013 [facility] [place] [facility] [address] [id number] [place] [address] 21 Apr, 2013 [facility] [place] [facility] [address] [id number] [place] [address] 11 Apr, 2013 [facility] [address] [id number] [place] [address] 09 Apr, 2013 [facility] [place] [facility] [address] [id number] [place] [address] 15 Mar, 2013 [facility] [place] [facility] [address] [id number] [place] [address] 14 Mar, 2013 [facility] [place] [facility] [address] [id number] [place] [address] Mar, [facility] [place] [facility] [address] [id number] [place] [address] Jan, [facility] [place] [facility] [address] [id number] [place] [address] Jan, [facility] [place] [facility] [address] [id number] [place] [address] Jan, [facility] [address] [id number] [place] [address] Jan, [facility] [place] [facility] [address] [id number] [place] [address] December, [facility] [address] [id number] [place] [address] Nov, [facility] [place] [facility] [address] [id number] [place] [address] Nov, [facility] [place] [facility] [address] [id number] [place] [address] Sep, [facility] [place] [facility] [address] [id number] [place] [address] Sep, [facility] [place] [facility] [address] [id number] [place] [address] 12 Sep, 2012 [facility] [place] [facility] [address] [id number] [place] [address] 29 Aug, 2012 [facility] [place] [facility] [address] [id number] [place] [address] 18 Aug, 2012 [facility] [place] [facility] [address] [id number] [place] [address] 17 Aug, 2012 [facility] [place] [facility] [address] [id number] [place] [address] 16 Aug, 2012 [facility] [place] [facility] [address] [id number] [place] [address] 16 Aug, 2012 [facility] [place] [facility] [address] [id number] [place] [address] Aug, [facility] [place] [facility] [address] [id number] [place] [address] Aug, [facility] [place] [facility] [address] [id number] [place] [address] Jul, [facility] [place] [facility] [address] [id number], [place] [address] Jul, [facility] [place] [facility] [address] [id number] [place] [address] Jun, [facility] [place] [facility] [address] [id number] [place] [address] Jun, [facility] [place] [facility] [address] [id number], [place] [address] May, [facility] [place] [facility] [address] [id number], [place] [address] May, [facility] [place] [facility] [address] [id number] [place] [address] May, [facility] [place] [facility] [address] [id number], [place] [address] May, [facility] [place] [facility] [address] [id number] [place] [address] Apr, [facility] [place] [facility] [address] [id number] [place] [address] 24 Apr, 2012 [facility] [address] [id number] [place] [address] 21 Apr, 2012 [facility] [place] [facility] [address] [id number] [place] [address] 20 Apr, 2012 [facility] [place] [facility] [address] [id number] [place] [address] 20 Apr, 2012 [facility] [place] [facility] [address] [id number] [place] [address] 19 Apr, 2012 [facility] [place] [facility] [address] [id number] [place] [address] 12 Apr, 2012 [facility] [place] [facility] [address] [id number] [place] [address] Mar, [facility] [place] [facility] [address] [id number] [place] [address] December, [facility] [address] [id number] [place] [address] December, [facility] [place] [facility] [address] [id number] [place] [address] December, [facility] [address] [id number] [place] [address] 10 Sep, 2011 [facility] [place] [facility] [address] [id number] [place] [address] Sep, [facility] [place] [facility] [address] [id number] [place] [address] Aug, [facility] [place] [facility] [address] [id number] [place] [address] Aug, [facility] [place] [facility] [address] [id number] [place] [address] Aug, [facility] [place] [facility] [address] [id number] [place] [address] Jun, [facility] [address] [facility] [id number], [place] [address] Jun, [facility] [address] [facility] [id number], [place] [address] Jun, [facility] [address] [facility] [id number], [place] [address] Jun, [facility] [address] [id number], [place] [address] Mar, [facility] [address] [facility] [id number], [place] [address] Jan, [facility] [address] [facility] [id number], [place] [address] December, IMMUNIZATIONS No Known Immunizations SOCIAL HISTORY Never Assessed REASON FOR VISIT EMR-[facility] PLAN OF CARE VITAL SIGNS MEDICATIONS Medication Instructions Dosage Frequency Start Date End Date Duration Status Oxybutynin Chloride 5 mg 1 tablet by Oral route 3 times per day PRN December, Active PredniSONE 20 mg 1 tablet by Oral route 1 time per day for 5 day(s) May, Active VESIcare 5 mg 1 tablet by Oral route 1 time per day Aug, Active Diclofenac Sodium 75 mg 1 tablet by Oral route 2 times per day PRN Oct, Active Hydrochlorothiazide 12.5 mg 1 capsule by Oral route 1 time per day Jun, Active Furosemide 20 mg 1 tablet by Oral route 1 time per day take with potassium Feb, Active metformin 500 mg 1 tablet by Oral route 2 times per day Feb, Active Flexeril 10 mg take 1 tablet (10 mg) by oral route 3 times per day PRN take prn muscle spasm May, Active RESULTS No Results PROCEDURES No Known procedures INSTRUCTIONS MEDICATIONS ADMINISTERED No Known Medications MEDICAL (GENERAL) HISTORY Type Description Date Medical History Hypertension Medical History Neuropathy Medical History Diabetes Medical History Restless leg syndrome Surgical History carpal tunnel left hand. Surgical History Right Knee Surgery Surgical History Left Knee SOA 03/21/16 Hospitalization History Left Knee SOA 03/21/16
--- OUTSIDE RECORDS SUMMARY | 2019-03-05 10:39 | XMS REPORT ---
Author Author Migration, Doctor Organization [facility] Address Unknown Phone Unavailable Care Team Providers Care Anesthesiologist And Critical Care Name Role Phone Migration, Doctor Unavailable Unavailable PROBLEMS Type Condition ICD9-CM Code OLL57-UG Code Onset Dates Condition Status SNOMED Code Problem Controlled restless leg syndrome G25.81 Active 94856513 Problem GERD (gastroesophageal reflux disease) K21.9 Active 691393354 Problem Mild single current episode of major depressive disorder F32.0 Active 67553111 Problem Recurrent major depressive disorder, in full remission F33.42 Active 97905705 Problem Benign essential HTN I10 Active 7270690 Problem Low back pain M54.5 Active 941008010 Problem Morbid (severe) obesity due to excess calories E66.01 Active 523326216 Problem OAB (overactive bladder) N32.81 Active 321573265 Problem Other chronic pain G89.29 Active 12063142 Problem Type 2 diabetes mellitus without complication, without long-term current use of insulin E11.9 Active 539454365 ALLERGIES No Information ENCOUNTERS Encounter Location Date Diagnosis [place] [id number] [place] [address] Jan, Type 2 diabetes mellitus without complication, without long-term current use of insulin E11.9 ; Benign essential HTN I10 ; Low back pain M54.5 and Morbid obesity E66.01 [facility] [id number] [place] [address] Jan, Degenerative arthritis of knee M17.9 [facility] [address] [address] Jan, [facility] [id number] [place] [address] Jan, [facility] [address] [address] December, Degenerative arthritis of knee M17.9 [facility] [id number] [place] [address] December, Type 2 diabetes mellitus with diabetic peripheral angiopathy without gangrene, without long-term current use of insulin E11.51 [facility] [address] [place] [id number] [place] [address] December, [facility] [address] [place] [id number] [place] [address] December, Degenerative arthritis of knee M17.9 [facility] [address] [place] [id number] [place] [address] Nov, Mild single current episode of major depressive disorder F32.0 [facility] [address] [place] [id number] [place] [address] Nov, Degenerative arthritis of knee M17.9 [facility] [address] [place] [id number] [place] [address] Oct, Type 2 diabetes mellitus without complication, without long-term current use of insulin E11.9 ; Low back pain M54.5 ; Other chronic pain G89.29 ; Recurrent major depressive disorder, in full remission F33.42 and Benign essential HTN I10 [facility] [id number] [place] [address] Oct, Degenerative arthritis of knee M17.9 [facility] [address] [place] [id number] [place] [address] Sep, Degenerative arthritis of knee M17.9 [facility] [address] [place] [id number] [place] [address] Sep, [facility] [address] [place] [id number] [place] [address] Aug, Degenerative arthritis of knee M17.9 [facility] [id number] [place] [address] Aug, [facility] [address] [address] Jul, Dysuria R30.0 ; Acute cystitis without hematuria N30.00 ; Vaginal odor N89.8 and BMI 40.0-44.9, adult Z68.41 [place] [address] [address] Jul, [place] [address] [address] Jul, Degenerative arthritis of knee M17.9 [place] [address] [address] Jun, Degenerative arthritis of knee M17.9 [place] [address] [address] Jun, Degenerative arthritis of knee M17.9 [place] [address] [address] Jun, Benign essential HTN I10 ; Type 2 diabetes mellitus without complication, without long-term current use of insulin E11.9 ; Acute cystitis without hematuria N30.00 ; Low back pain M54.5 ; Other chronic pain G89.29 and BMI 40.0- 44.9, adult Z68.41 [place] [address] [address] May, Neuroma of foot D36.13 and 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 [place] [address] [address] May, Degenerative arthritis of knee M17.9 [place] [address] [address] May, Encounter for immunization Z23 [place] [address] [address] Apr, [place] [address] [address] Apr, Degenerative arthritis of knee M17.9 [facility] [address] [address] Mar, Degenerative arthritis of knee M17.9 [facility] [id number] [place] [address] Mar, Type 2 diabetes mellitus with diabetic peripheral angiopathy without gangrene, without long-term current use of insulin E11.51 ; Benign essential HTN I10 ; Degenerative arthritis of knee M17.9 and Mild single current episode of major depressive disorder F32.0 [facility] [address] [place] [id number] [place] [address] Feb, [place] [address] [place] [id number] [place] [address] Feb, Degenerative arthritis of knee M17.9 [place] [address] [place] [id number] [place] [address] Feb, [facility] [address] [place] [id number] [place] [address] Jan, Degenerative arthritis of knee M17.9 [place] [address] [place] [id number] [place] [address] Jan, Herpes zoster without complication B02.9 and BMI 40.0-44.9, adult Z68.41 [place] [id number] [place] [address] December, Degenerative arthritis of knee M17.9 [place] [address] [address] Nov, Benign essential HTN I10 ; Type [...] Z68.41 and GERD (gastroesophageal reflux disease) K21.9 [place] [id number] [place] [address] Nov, [place] [address] [place] [id number] [place] [address] Oct, Degenerative arthritis of knee M17.9 [place] [address] [place] [id number] [place] [address] Oct, [place] [address] [place] [id number] [place] [address] Oct, Type 2 diabetes mellitus with diabetic peripheral angiopathy without gangrene, without long-term current use of insulin E11.51 and Controlled substance agreement signed Z79.899 [place] [address] [place] [id number] [place] [address] Oct, Degenerative arthritis of knee M17.9 [place] [address] [place] [id number] [place] [address] Sep, Type 2 diabetes mellitus with diabetic peripheral angiopathy without gangrene, without long-term current use of insulin E11.51 ; Benign essential HTN I10 ; BMI 40.0-44.9, adult Z68.41 ; Mild single current episode of major depressive disorder F32.0 ; OAB (overactive bladder) N32.81 ; Degenerative arthritis of knee M17.9 and GERD (gastroesophageal reflux disease) K21.9 [place] [id number] [place] [address] Aug, Joint pain and swelling due to Lyme disease A69.20 [place] [address] [place] [id number] [place] [address] Jun, [place] [address] [place] [id number] [place] [address] May, 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 ; Benign essential HTN I10 ; 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 ; Body mass index (BMI) of 40.0-44.9 in adult Z68.41 and Morbid (severe) obesity due to excess calories E66.01 [place] [address] [place] [id number] [place] [address] May, Encounter for immunization Z23 [place] [address] [place] [id number] [place] [address] May, 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 [place] [address] [place] [id number] [place] [address] Mar, Mild single current episode of major depressive disorder F32.[address] [address] Mar, Joint pain and swelling due to Lyme disease A69.20 [place] [id number] [place] [address] Feb, Izzy infection B37.9 [place] [id number] [place] [address] Jan, Insect bite (nonvenomous) of abdominal wall, initial encounter S30.861A and Joint pain and swelling due to Lyme disease A69.20 [place] [address] [place] [id number] [place] [address] Jan, [place] [address] [place] [id number] [place] [address] Sep, Mild single current episode of major depressive disorder F32.0 and 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 [place] [id number] [place] [address] Sep, Controlled restless leg syndrome G25.81 and Cramp of both lower extremities R25.2 [place] [address] [place] [id number] [place] [address] Aug, 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 ; Controlled restless leg syndrome G25.81 ; SI (stress incontinence), female N39.3 ; Benign essential HTN I10 ; 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 ; GERD (gastroesophageal reflux disease) K21.9 ; Screening cholesterol level Z13.220 and Mild single current episode of major depressive disorder F32.0 [place] [id number] [address] 11 Aug, 2016 [place] [address] [place] [id number] [place] [address] May, [place] [address] [place] [id number] [place] [address] May, Encounter for immunization Z23 [place] [address] [address] Apr, [place] [address] [place] [id number] [place] [address] Apr, [place] [address] [place] [id number] [place] [address] Apr, SAMANTHA (secretory otitis media), right H65.91 ; 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 ; Controlled restless leg syndrome G25.81 ; Edema extremities R60.0 ; SI (stress incontinence), female N39.3 ; Benign essential HTN I10 ; Degenerative arthritis of knee M17.9 and Major depressive disorder with single episode, remission status unspecified F32.9 [place] [address] [place] [id number] [place] [address] Apr, OME (otitis media with effusion), right H65.91 [place] [address] [place] [id number] [place] [address] Mar, [place] [address] [place] [id number] [place] [address] Mar, 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 ; Controlled restless leg syndrome G25.81 ; SI (stress incontinence), female N39.3 ; Benign essential HTN I10 ; GERD (gastroesophageal reflux disease) K21.9 ; Knee pain M25.569 and Major depressive disorder with single episode, remission status unspecified F32.9 [place] [id number] [place] [address] Mar, [place] [address] [place] [id number] [place] [address] Mar, [place] [address] [place] [id number] [place] [address] Jan, Pre-op exam Z01.818 [place] [address] [place] [id number] [place] [address] Oct, Urinary tract infection N39.0 ; Benign essential HTN I10 ; Controlled restless leg syndrome G25.81 ; Edema extremities R60.0 ; Degenerative arthritis of knee M17.9 and GERD (gastroesophageal reflux disease) K21.9 [place] [address] [place] [id number] [place] [address] Oct, Izzy albicans infection B37.9 [place] [address] [place] [id number] [place] [address] Sep, [place] [address] [place] [id number] [place] [address] Sep, UTI (urinary tract infection) N39.0 ; Benign essential HTN I10 ; 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 ; Controlled restless leg syndrome G25.81 ; Edema extremities R60.0 ; SI (stress incontinence), female N39.3 and 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 [place] [id number] [place] [address] Sep, UTI (urinary tract infection) N39.0 [place] [address] [address] Aug, Pre-op evaluation Z01.818 [place] [address] [place] [id number] [place] [address] Aug, [place] [address] [place] [id number] [place] [address] Aug, [place] [address] [place] [id number] [place] [address] Jul, Right hip pain M25.551 ; 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 and Knee pain M25.569 [place] [address] [address] Jul, [place] [address] [place] [id number] [place] [address] Jun, Knee pain M25.569 ; 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 and Degenerative arthritis of knee M17.9 [place] [id number] [place] [address] Jun, [place] [address] [place] [id number] [place] [address] Apr, Diabetes mellitus 250.00 ; Influenza vaccine administered V04.81 ; Incontinence 788.30 ; Restless legs syndrome 333.94 ; Sciatica 724.3 ; Essential hypertension, benign 401.1 ; Edema 782.3 and Depression (emotion) 311 [place] [address] [place] [id number] [place] [address] Mar, Pain in joint, lower leg 719.46 and Sciatica 724.3 [place] [address] [place] [id number] [place] [address] Mar, [address] [address] Feb, Pain in joint, site unspecified 719.40 ; Other urinary incontinence 788.39 ; Pain in joint, lower leg 719.46 ; Edema 782.3 ; Sciatica 724.3 ; Essential hypertension, benign 401.1 ; Depression 311 ; Diabetes mellitus 250.00 ; Incontinence 788.30 and Restless legs syndrome 333.94 [facility] [address] [facility] [id number] [place] [address] Feb, [facility] [address] [facility] [id number] [address] Nov, [facility] [address] [facility] [id number], [place] [address] Nov, [facility] [address] [id number], [place] [address] Oct, [facility] [address] [id number] [place] [address] Oct, [facility] [address] [facility] [id number], [place] [address] Aug, [facility] [address] [address] Aug, [facility] [address] [place] [id number] [address] Aug, [facility] [address] [place] [id number] [address] Aug, [facility] [address] [place] [id number] [address] Aug, [facility] [address] [address] Aug, [facility] [address] [facility] [id number], [place] [address] Jun, [facility] [address] [facility] [id number], [place] [address] Jun, [facility] [address] [facility] [id number], [place] [address] Jun, [facility] [address] [place] [id number] [address] Jun, [facility] [place] [facility] [address] [facility] [id number] [place] [address] Jun, [facility] [place] [facility] [address] [id number] [place] [address] Jun, [facility] [place] [facility] [address] [id number] [place] [address] May, [facility] [place] [facility] [address] [id number] [place] [address] May, [facility] [place] [facility] [address] [id number] [place] [address] May, [facility] [place] [facility] [address] [id number] [place] [address] May, [facility] [place] [facility] [address] [id number] [place] [address] Apr, [facility] [place] [facility] [address] [id number] [place] [address] Apr, [facility] [place] [facility] [address] [id number] [place] [address] Apr, [facility] [place] [facility] [address] [id number] [place] [address] Apr, [facility] [place] [facility] [address] [id number] [place] [address] Mar, [facility] [place] [facility] [address] [id number] [place] [address] Mar, [facility] [place] [facility] [address] [id number] [place] [address] Mar, [facility] [place] [facility] [address] [id number] [place] [address] Mar, [facility] [place] [facility] [address] [id number] [place] [address] Mar, [facility] [place] [facility] [address] [id number] [place] [address] Mar, [facility] [place] [facility] [address] [id number] [place] [address] Feb, [facility] [place] [facility] [address] [id number] [place] [address] Feb, [facility] [place] [facility] [address] [id number] [place] [address] Jan, [facility] [place] [facility] [address] [id number] [place] [address] Jan, [facility] [place] [facility] [address] [id number] [place] [address] Jan, [facility] [place] [facility] [address] [id number] [place] [address] Jan, [facility] [place] [facility] [address] [id number] [place] [address] December, [facility] [place] [facility] [address] [id number] [place] [address] December, [facility] [place] [facility] [address] [id number] [place] [address] December, [facility] [place] [facility] [address] [id number] [place] [address] December, [facility] [place] [facility] [address] [id number] [place] [address] December, [facility] [place] [facility] [address] [id number] [place] [address] December, [facility] [place] [facility] [address] [id number] [place] [address] December, [facility] [place] [facility] [address] [id number] [place] [address] December, [facility] [place] [facility] [address] [id number] [place] [address] Nov, [facility] [place] [facility] [address] [id number] [place] [address] Nov, [facility] [place] [facility] [address] [id number] [place] [address] Nov, [facility] [place] [facility] [address] [id number] [place] [address] Nov, [facility] [place] [facility] [address] [id number] [place] [address] Oct, [facility] [place] [facility] [address] [id number] [place] [address] Oct, [facility] [place] [facility] [address] [id number] [place] [address] Oct, [facility] [place] [facility] [address] [id number] [place] [address] Oct, [facility] [place] [facility] [address] [id number] [place] [address] Oct, [facility] [place] [facility] [address] [id number] [place] [address] Oct, [facility] [place] [facility] [address] [id number] [place] [address] Oct, [facility] [place] [facility] [address] [id number] [place] [address] Oct, [facility] [place] [facility] [address] [id number] [place] [address] Sep, [facility] [place] [facility] [address] [id number] [place] [address] Sep, [facility] [place] [facility] [address] [id number] [place] [address] Sep, [facility] [place] [facility] [address] [id number] [place] [address] Sep, [facility] [place] [facility] [address] [id number] [place] [address] Sep, [facility] [place] [facility] [address] [id number] [place] [address] Aug, [facility] [place] [facility] [address] [id number] [place] [address] Aug, [facility] [place] [facility] [address] [id number] [place] [address] Jul, [facility] [place] [facility] [address] [id number] [place] [address] Jul, [facility] [address] [id number] [place] [address] Jul, [facility] [place] [facility] [address] [id number] [place] [address] Jul, [facility] [address] [id number] [place] [address] Jul, [facility] [address] [id number] [place] [address] Jul, [facility] [place] [facility] [address] [id number] [place] [address] Jul, [facility] [place] [facility] [address] [id number] [place] [address] Jun, [facility] [place] [facility] [address] [id number] [place] [address] Jun, [facility] [place] [facility] [address] [id number][place] [address] Jun, [facility] [place] [facility] [address] [id number] [place] [address] Jun, [facility] [place] [facility] [address] [id number] [place] [address] Jun, [facility] [place] [facility] [address] [id number][place] [address] Jun, [facility] [place] [facility] [address] [id number], [place] [address] Jun, [facility] [place] [facility] [address] [id number] [place] [address] Jun, [facility] [place] [facility] [address] [id number], [place] [address] Jun, [facility] [place] [facility] [address] [id number] [place] [address] Jun, [facility] [place] [facility] [address] [id number], [place] [address] Jun, [facility] [place] [facility] [address] [id number] [place] [address] Jun, [facility] [place] [facility] [address] [id number] [place] [address] Jun, [facility] [place] [facility] [address] [id number], [place] [address] May, [facility] [place] [facility] [address] [id number] [place] [address] May, [facility] [place] [facility] [address] [id number], [place] [address] May, [facility] [place] [facility] [address] [id number], [place] [address] May, [facility] [place] [facility] [address] [id number], [place] [address] May, [facility] [place] [facility] [address] [id number], [place] [address] 11 May, 2013 [facility] [place] [facility] [address] [id number], [place] [address] 10 May, 2013 [facility] [place] [facility] [address] [id number], [place] [address] 10 May, 2013 [facility] [place] [facility] [address] [id number], [place] [address] 09 May, 2013 [facility] [place] [facility] [address] [id number] [place] [address] 23 Apr, 2013 [facility] [address] [id number] [place] [address] 21 Apr, 2013 [facility] [place] [facility] [address] [id number] [place] [address] 11 Apr, 2013 [facility] [facility] [address] [id number] [place] [address] 09 Apr, 2013 [facility] [place] [facility] [address] [id number] [place] [address] 15 Mar, 2013 [facility] [address] [id number] [place] [address] 14 Mar, 2013 [facility] [place] [facility] [address] [id number] [place] [address] Mar, [facility] [address] [id number] [place] [address] Jan, [facility] [address] [id number] [place] [address] Jan, [facility] [place] [facility] [address] [id number] [place] [address] Jan, [facility] [address] [id number] [place] [address] Jan, [facility] [place] [facility] [address] [id number] [place] [address] December, [facility] [place] [facility] [address] [id number] [place] [address] Nov, [facility] [place] [facility] [address] [id number] [place] [address] Nov, [facility] [place] [facility] [address] [id number] [place] [address] 19 Sep, 2012 [facility] [place] [facility] [address] [id number] [place] [address] 13 Sep, 2012 [facility] [place] [facility] [address] [id number] [place] [address] Sep, [facility] [place] [facility] [address] [id number] [place] [address] Aug, [facility] [place] [facility] [address] [id number] [place] [address] Aug, [facility] [place] [facility] [address] [id number] [place] [address] Aug, [facility] [place] [facility] [address] [id number] [place] [address] Aug, [facility] [place] [facility] [address] [id number] [place] [address] Aug, [facility] [place] [facility] [address] [id number] [place] [address] Aug, [facility] [place] [facility] [address] [id number] [place] [address] Aug, [facility] [place] [facility] [address] [id number] [place] [address] Jul, [facility] [place] [facility] [address] [id number] [place] [address] Jul, [facility] [place] [facility] [address] [id number] [address] Jun, [facility] [place] [facility] [address] [id number] [address] Jun, [facility] [place] [facility] [address] [id number] [place] [address] May, [facility] [place] [facility] [address] [id number] [address] May, [facility] [place] [facility] [address] [id number] [place] [address] May, [facility] [place] [facility] [address] [id number] [place] [address] 23 May, 2012 [facility] [address] [id number] [place] [address] 26 Apr, 2012 [facility] [place] [facility] [address] [id number] [place] [address] 24 Apr, 2012 [facility] [address] [id number] [place] [address] 21 Apr, 2012 [facility] [place] [facility] [address] [id number] [place] [address] 20 Apr, 2012 [facility] [place] [facility] [address] [id number] [place] [address] 20 Apr, 2012 [facility] [place] [facility] [address] [id number] [place] [address] 19 Apr, 2012 [facility] [address] [id number] [place] [address] 12 Apr, 2012 [facility] [address] [id number] [place] [address] Mar, [facility] [place] [facility] [address] [id number] [place] [address] December, [facility] [address] [id number] [place] [address] December, [facility] [place] [facility] [address] [id number] [place] [address] December, [facility] [place] [facility] [address] [id number] [place] [address] Sep, [facility] [place] [facility] [address] [id number] [place] [address] Sep, [facility] [place] [facility] [address] [id number] [place] [address] Aug, [facility] [place] [facility] [address] [id number] [place] [address] Aug, [facility] [address] [facility] [id number], [place] [address] Aug, [facility] [address] [id number] [address] Jun, [facility] [address] [id number], [place] [address] Jun, [facility] [id number], [place] [address] Jun, [facility] [address] [id number] [address] Jun, [facility] [id number], [place] [address] Mar, [facility] [address] [id number], [place] [address] Jan, [facility] [address] [id number], [place] [address] December, IMMUNIZATIONS No Known Immunizations SOCIAL HISTORY Never Assessed REASON FOR VISIT PLAN OF CARE VITAL SIGNS Height 64 in 2014-09-07 Weight 272.4 lbs 2014-09-07 Temperature 98.3 degrees Fahrenheit 2014-09-07 Heart Rate 84 bpm 2014-09-07 Respiratory Rate 24 2014-09-07 Blood pressure systolic 136 mmHg 2014-09-07 Blood pressure diastolic 92 mmHg 2014-09-07 MEDICATIONS No Known Medications RESULTS No Results PROCEDURES Procedure Date Ordered Result Body Site DRAIN/INJECT, JOINT/BURSA Sep 07, 2014 INSTRUCTIONS MEDICATIONS ADMINISTERED No Known Medications MEDICAL (GENERAL) HISTORY Type Description Date Medical History Hypertension Medical History Neuropathy Medical History Diabetes Medical History Restless leg syndrome Surgical History carpal tunnel left hand. Surgical History Right Knee Surgery Surgical History Left Knee SOA 03/21/16 Hospitalization History Left Knee SOA 03/21/16
--- OUTSIDE RECORDS SUMMARY | 2019-03-05 10:40 | XMS REPORT ---
Author Author Migration, Doctor Organization [facility] Address Unknown Phone Unavailable Care Team Providers [employer] Name Role Phone Migration, Doctor Unavailable Unavailable PROBLEMS Type Condition ICD9-CM Code VQX63-BI Code Onset Dates Condition Status SNOMED Code Problem Controlled restless leg syndrome G25.81 Active 00949924 Problem GERD (gastroesophageal reflux disease) K21.9 Active 613864916 Problem Mild single current episode of major depressive disorder F32.0 Active 71707376 Problem Recurrent major depressive disorder, in full remission F33.42 Active 80708237 Problem Benign essential HTN I10 Active 7126189 Problem Low back pain M54.5 Active 069282123 Problem Morbid (severe) obesity due to excess calories E66.01 Active 753742619 Problem OAB (overactive bladder) N32.81 Active 166914369 Problem Other chronic pain G89.29 Active 04876221 Problem Type 2 diabetes mellitus without complication, without long-term current use of insulin E11.9 Active [id number] ALLERGIES No Information ENCOUNTERS Encounter Location Date Diagnosis [facility] [facility] [id number] [place] [address] December, [place] [id number] [place] [address] December, Degenerative arthritis of knee M17.9 [facility] [id number] [place] [address] Nov, Mild single current episode of major depressive disorder F32.0 [facility] [facility] [id number] [place] [address] Nov, Degenerative arthritis of knee M17.9 [place] [id number] [place] [address] Oct, Type 2 diabetes mellitus without complication, without long-term current use of insulin E11.9 ; Low back pain M54.5 ; Other chronic pain G89.29 ; Recurrent major depressive disorder, in full remission F33.42 and Benign essential HTN I10 [facility] [id number] [place] [address] Oct, Degenerative arthritis of knee M17.9 [facility] [id number] [place] [address] Sep, Degenerative arthritis of knee M17.9 [facility] [id number] [place] [address] Sep, [facility] [id number] [place] [address] Aug, Degenerative arthritis of knee M17.9 [facility] [id number] [place] [address] Aug, [facility] [address] [address] Jul, Dysuria R30.0 ; Acute cystitis without hematuria N30.00 ; Vaginal odor N89.8 and BMI 40.0-44.9, adult Z68.41 [facility] [id number] [place] [address] Jul, [facility] [id number] [place] [address] Jul, Degenerative arthritis of knee M17.9 [facility] [id number] [place] [address] Jun, Degenerative arthritis of knee M17.9 [facility] [id number] [place] [address] Jun, Degenerative arthritis of knee M17.9 [facility] [id number] [place] [address] Jun, Benign essential HTN I10 ; Type 2 diabetes mellitus without complication, without long-term current use of insulin E11.9 ; Acute cystitis without hematuria N30.00 ; Low back pain M54.5 ; Other chronic pain G89.29 and BMI 40.0- 44.9, adult Z68.41 [place] [address] [address] May, Neuroma of foot D36.13 and 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 [place] [address] [address] May, Degenerative arthritis of knee M17.9 [place] [address] [address] May, Encounter for immunization Z23 [place] [address] [address] Apr, [place] [address] [address] Apr, Degenerative arthritis of knee M17.9 [place] [facility] [address] [address] Mar, Degenerative arthritis of knee M17.9 [facility] [facility] [address] [address] Mar, Type 2 diabetes mellitus with diabetic peripheral angiopathy without gangrene, without long-term current use of insulin E11.51 ; Benign essential HTN I10 ; Degenerative arthritis of knee M17.9 and Mild single current episode of major depressive disorder F32.0 [facility] [id number] [place] [address] Feb, [place] [address] [address] Feb, Degenerative arthritis of knee M17.9 [facility] [id number] [place] [address] Feb, [place] [address] [address] Jan, Degenerative arthritis of knee M17.9 [place] [id number] [place] [address] Jan, Herpes zoster without complication B02.9 and BMI 40.0-44.9, adult Z68.41 [place] [address] [place] [address] December, Degenerative arthritis of knee M17.9 [facility] [facility] [id number] [place] [address] Nov, Benign essential HTN I10 ; Type [...] Z68.41 and GERD (gastroesophageal reflux disease) K21.9 [facility] [facility] [id number] [place] [address] Nov, [facility] [id number] [place] [address] Oct, Degenerative arthritis of knee M17.9 [facility] [id number] [place] [address] Oct, [place] [id number] [place] [address] Oct, Type 2 diabetes mellitus with diabetic peripheral angiopathy without gangrene, without long-term current use of insulin E11.51 and Controlled substance agreement signed Z79.899 [place] [id number] [place] [address] Oct, Degenerative arthritis of knee M17.9 [place] [address] [address] Sep, Type 2 diabetes mellitus with diabetic peripheral angiopathy without gangrene, without long-term current use of insulin E11.51 ; Benign essential HTN I10 ; BMI 40.0-44.9, adult Z68.41 ; Mild single current episode of major depressive disorder F32.0 ; OAB (overactive bladder) N32.81 ; Degenerative arthritis of knee M17.9 and GERD (gastroesophageal reflux disease) K21.9 [place] [id number] [place] [address] Aug, Joint pain and swelling due to Lyme disease A69.20 [place] [address] [address] Jun, [address] [address] May, 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 ; Benign essential HTN I10 ; 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 ; Body mass index (BMI) of 40.0-44.9 in adult Z68.41 and Morbid (severe) obesity due to excess calories E66.01 [place] [id number] [place] [address] May, Encounter for immunization Z23 [address] [address] May, 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 [place] [id number] [place] [address] Mar, Mild single current episode of major depressive disorder F32.0 [place] [id number] [place] [address] Mar, Joint pain and swelling due to Lyme disease A69.20 [place] [id number] [place] [address] Feb, Izzy infection B37.9 [place] [id number] [place] [address] Jan, Insect bite (nonvenomous) of abdominal wall, initial encounter S30.861A and Joint pain and swelling due to Lyme disease A69.20 [place] [id number] [place] [address] Jan, [place] [id number] [place] [address] 16 Sep, 2016 Mild single current episode of major depressive disorder F32.0 and 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 [place] [id number] [place] [address] 13 Sep, 2016 Controlled restless leg syndrome G25.81 and Cramp of both lower extremities R25.2 [place] [id number] [place] [address] Aug, 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 ; Controlled restless leg syndrome G25.81 ; SI (stress incontinence), female N39.3 ; Benign essential HTN I10 ; 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 ; GERD (gastroesophageal reflux disease) K21.9 ; Screening cholesterol level Z13.220 and Mild single current episode of major depressive disorder F32.0 [place] [id number] [place] [address] Aug, [place] [id number] [place] [address] May, [place] [id number] [place] [address] May, Encounter for immunization Z23 [place] [id number] [place] [address] Apr, [place] [address] [address] Apr, [place] [id number] [place] [address] Apr, SAMANTHA (secretory otitis media), right H65.91 ; 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 ; Controlled restless leg syndrome G25.81 ; Edema extremities R60.0 ; SI (stress incontinence), female N39.3 ; Benign essential HTN I10 ; Degenerative arthritis of knee M17.9 and Major depressive disorder with single episode, remission status unspecified F32.9 [facility] [address] [address] Apr, OME (otitis media with effusion), right H65.91 [facility] [id number] [place] [address] Mar, [place] [id number] [place] [address] Mar, 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 ; Controlled restless leg syndrome G25.81 ; SI (stress incontinence), female N39.3 ; Benign essential HTN I10 ; GERD (gastroesophageal reflux disease) K21.9 ; Knee pain M25.569 and Major depressive disorder with single episode, remission status unspecified F32.9 [place] [id number] [place] [address] Mar, [place] [id number] [place] [address] Mar, [place] [address] [place] [address] Jan, Pre-op exam Z01.818 [facility] [id number] [place] [address] Oct, Urinary tract infection N39.0 ; Benign essential HTN I10 ; Controlled restless leg syndrome G25.81 ; Edema extremities R60.0 ; Degenerative arthritis of knee M17.9 and GERD (gastroesophageal reflux disease) K21.9 [facility] [address] [address] Oct, Izzy albicans infection B37.9 [facility] [id number] [address] Sep, [place] [id number] [place] [address] Sep, UTI (urinary tract infection) N39.0 ; Benign essential HTN I10 ; 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 ; Controlled restless leg syndrome G25.81 ; Edema extremities R60.0 ; SI (stress incontinence), female N39.3 and 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 [place] [id number] [place] [address] 12 Sep, 2015 UTI (urinary tract infection) N39.0 [place] [id number] [place] [address] Aug, Pre-op evaluation Z01.818 [place] [id number] [place] [address] Aug, [place] [id number] [place] [address] Aug, [place] [id number] [place] [address] Jul, Right hip pain M25.551 ; 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 and Knee pain M25.569 [place] [id number] [place] [address] Jul, [place] [id number] [place] [address] Jun, Knee pain M25.569 ; 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 and Degenerative arthritis of knee M17.9 [address] [place] [address] Jun, [place] [id number] [place] [address] 30 Apr, 2015 Diabetes mellitus 250.00 ; Influenza vaccine administered V04.81 ; Incontinence 788.30 ; Restless legs syndrome 333.94 ; Sciatica 724.3 ; Essential hypertension, benign 401.1 ; Edema 782.3 and Depression (emotion) 311 [facility] [id number] [place] [address] Mar, Pain in joint, lower leg 719.46 and Sciatica 724.3 [place] [address] [address] Mar, [facility] [id number] [place] [address] Feb, Pain in joint, site unspecified 719.40 ; Other urinary incontinence 788.39 ; Pain in joint, lower leg 719.46 ; Edema 782.3 ; Sciatica 724.3 ; Essential hypertension, benign 401.1 ; Depression 311 ; Diabetes mellitus 250.00 ; Incontinence 788.30 and Restless legs syndrome 333.94 [facility] [id number] [place] [address] Feb, [facility] [id number] [place] [address] Nov, [facility] [id number] [place] [address] Nov, [place] [id number] [place] [address] Oct, [facility] [id number] [place] [address] Oct, [facility] [id number] [place] [address] Aug, [facility] [id number] [place] [address] Aug, [facility] [id number] [place] [address] Aug, [facility] [place] [facility] [address] [id number] [place] [address] Aug, [facility] [place] [facility] [address] [id number] [place] [address] Aug, [facility] [place] [facility] [address] [id number] [place] [address] Aug, [facility] [place] [facility] [address] [id number] [place] [address] Jun, [facility] [place] [facility] [address] [id number] [place] [address] Jun, [facility] [place] [facility] [address] [id number] [place] [address] Jun, [facility] [place] [facility] [address] [id number] [place] [address] Jun, [facility] [place] [facility] [address] [id number] [place] [address] Jun, [facility] [place] [facility] [address] [id number] [place] [address] Jun, [facility] [place] [facility] [address] [id number] [place] [address] May, [facility] [place] [facility] [address] [id number] [place] [address] 31 May, 2014 [facility] [place] [facility] [address] [id number] [place] [address] 16 May, 2014 [facility] [place] [facility] [address] [id number] [place] [address] 16 May, 2014 [facility] [place] [facility] [address] [id number] [place] [address] 22 Apr, 2014 [facility] [place] [facility] [address] [id number] [place] [address] 22 Apr, 2014 [facility] [place] [facility] [address] [id number] [place] [address] Apr, [facility] [place] [facility] [address] [id number] [place] [address] Apr, [facility] [place] [facility] [address] [id number] [place] [address] Mar, [facility] [place] [facility] [address] [id number] [place] [address] Mar, [facility] [place] [facility] [address] [id number] [place] [address] Mar, [facility] [place] [facility] [address] [id number] [place] [address] Mar, [facility] [place] [facility] [address] [id number] [place] [address] Mar, [facility] [place] [facility] [address] [id number] [place] [address] Mar, [facility] [place] [facility] [address] [id number] [place] [address] Feb, [facility] [place] [facility] [address] [id number] [place] [address] Feb, [facility] [place] [facility] [address] [id number] [place] [address] Jan, [facility] [place] [facility] [address] [id number] [place] [address] Jan, [facility] [place] [facility] [address] [id number] [place] [address] Jan, [facility] [place] [facility] [address] [id number] [place] [address] Jan, [facility] [place] [facility] [address] [id number] [place] [address] December, [facility] [place] [facility] [address] [id number] [place] [address] December, [facility] [place] [facility] [address] [id number] [place] [address] December, [facility] [place] [facility] [address] [id number] [place] [address] December, [facility] [place] [facility] [address] [id number] [place] [address] December, [facility] [place] [facility] [address] [id number] [place] [address] December, [facility] [place] [facility] [address] [id number] [place] [address] December, [facility] [place] [facility] [address] [id number] [place] [address] December, [facility] [place] [facility] [address] [id number] [place] [address] Nov, [facility] [place] [facility] [address] [id number] [place] [address] Nov, [facility] [place] [facility] [address] [id number] [place] [address] Nov, [facility] [place] [facility] [address] [id number] [place] [address] Nov, [facility] [place] [facility] [address] [id number] [place] [address] Oct, [facility] [place] [facility] [address] [id number] [place] [address] Oct, [facility] [place] [facility] [address] [id number] [place] [address] Oct, [facility] [place] [facility] [address] [id number] [place] [address] Oct, [facility] [place] [facility] [address] [id number] [place] [address] Oct, [facility] [place] [facility] [address] [id number] [place] [address] Oct, [facility] [place] [facility] [address] [id number] [place] [address] Oct, [facility] [place] [facility] [address] [id number] [place] [address] Oct, [facility] [place] [facility] [address] [id number] [place] [address] Sep, [facility] [place] [facility] [address] [id number] [place] [address] Sep, [facility] [place] [facility] [address] [id number] [place] [address] Sep, [facility] [place] [facility] [address] [id number] [place] [address] Sep, [facility] [place] [facility] [address] [id number] [place] [address] Sep, [facility] [place] [facility] [address] [id number] [place] [address] Aug, [facility] [place] [facility] [address] [id number] [place] [address] Aug, [facility] [place] [facility] [address] [id number] [place] [address] Jul, [facility] [place] [facility] [address] [id number] [place] [address] Jul, [facility] [place] [facility] [address] [id number] [place] [address] Jul, [facility] [place] [facility] [address] [id number] [place] [address] Jul, [facility] [place] [facility] [address] [id number] [place] [address] Jul, [facility] [place] [facility] [address] [id number] [place] [address] Jul, [facility] [place] [facility] [address] [id number] [address] Jul, [facility] [address] [id number] [place] [address] Jun, [facility] [place] [facility] [address] [id number], [place] [address] Jun, [facility] [place] [facility] [address] [id number] [place] [address] Jun, [facility] [place] [facility] [address] [id number], [place] [address] Jun, [facility] [place] [facility] [id number] [place] [address], [place] [address] Jun, [facility] [place] [facility] [address] [id number] [place] [address] Jun, [facility] [address] [id number], [place] [address] Jun, [facility] [place] [facility] [address] [id number], [place] [address] Jun, [facility] [place] [facility] [address] [id number], [place] [address] Jun, [facility] [place] [facility] [address] [facility] [id number], [place] [address] Jun, [facility] [place] [facility] [address] [id number], [place] [address] Jun, [facility] [place] [facility] [address] [id number], [place] [address] Jun, [facility] [place] [facility] [address] [id number], [place] [address] Jun, [facility] [place] [facility] [address] [id number], [place] [address] May, [facility] [place] [facility] [address] [id number], [place] [address] May, [facility] [place] [facility] [address] [id number] [place] [address] 18 May, 2013 [facility] [place] [facility] [address] [id number] [place] [address] 18 May, 2013 [facility] [place] [facility] [address] [id number] [place] [address] May, [facility] [place] [facility] [address] [id number] [place] [address] 11 May, 2013 [facility] [place] [facility] [address] [id number] [place] [address] 10 May, 2013 [facility] [place] [facility] [address] [id number] [place] [address] 10 May, 2013 [facility] [place] [facility] [address] [id number] [place] [address] 09 May, 2013 [facility] [place] [facility] [address] [id number] [place] [address] 23 Apr, 2013 [facility] [place] [facility] [address] [id number] [place] [address] 21 Apr, 2013 [facility] [place] [facility] [address] [id number] [place] [address] 11 Apr, 2013 [facility] [place] [facility] [address] [id number] [place] [address] 09 Apr, 2013 [facility] [place] [facility] [address] [id number] [place] [address] 15 Mar, 2013 [facility] [place] [facility] [address] [id number] [place] [address] 14 Mar, 2013 [facility] [place] [facility] [address] [id number] [place] [address] 02 Mar, 2013 [facility] [place] [facility] [address] [id number] [place] [address] 13 Jan, 2013 [facility] [place] [facility] [address] [id number] [place] [address] Jan, [facility] [address] [id number] [place] [address] Jan, [facility] [place] [facility] [address] [id number] [place] [address] Jan, [facility] [place] [facility] [address] [id number] [place] [address] December, [facility] [place] [facility] [address] [id number] [place] [address] Nov, [facility] [address] [id number] [place] [address] Nov, [facility] [place] [facility] [address] [id number] [place] [address] Sep, [facility] [place] [facility] [address] [id number] [place] [address] Sep, [facility] [place] [facility] [address] [id number] [place] [address] Sep, [facility] [place] [facility] [address] [id number] [place] [address] Aug, [facility] [place] [facility] [address] [id number] [place] [address] Aug, [facility] [place] [facility] [address] [id number], [place] [address] Aug, [facility] [place] [facility] [address] [id number], [place] [address] 16 Aug, 2012 [facility] [place] [facility] [address] [id number] [place] [address] Aug, [facility] [place] [facility] [address] [id number] [place] [address] 15 Aug, 2012 [facility] [place] [facility] [address] [id number] [place] [address] Aug, [facility] [place] [facility] [address] [id number] [place] [address] Jul, [facility] [place] [facility] [address] [id number] [place] [address] Jul, [facility] [place] [facility] [address] [id number] [place] [address] Jun, [facility] [place] [facility] [address] [id number] [place] [address] Jun, [facility] [place] [facility] [address] [id number] [place] [address] May, [facility] [place] [facility] [address] [id number] [place] [address], [place] [address] May, [facility] [place] [facility] [address] [id number] [place] [address] May, [facility] [place] [facility] [address] [id number] [place] [address] May, [facility] [place] [facility] [address] [id number] [place] [address] Apr, [facility] [place] [facility] [address] [id number] [place] [address] 24 Apr, 2012 [facility] [place] [facility] [address] [id number] [place] [address] 21 Apr, 2012 [facility] [place] [facility] [address] [id number] [place] [address] 20 Apr, 2012 [facility] [place] [facility] [address] [id number] [place] [address] 20 Apr, 2012 [facility] [place] [facility] [address] [id number] [place] [address] 19 Apr, 2012 [facility] [place] [facility] [address] [id number] [place] [address] 12 Apr, 2012 [facility] [place] [facility] [address] [id number] [place] [address] Mar, [facility] [address] [id number], [place] [address] December, [facility] [address] [id number], [place] [address] December, [facility] [address] [facility] [id number], [place] [address] December, [facility] [address] [id number] [place] [address] Sep, [facility] [address] [id number] [place] [address] Sep, [facility] [address] [facility] [id number], [place] [address] Aug, [facility] [address] [facility] [id number], [place] [address] Aug, [facility] [address] [facility] [id number], [place] [address] Aug, [facility] [address] [facility] [id number], [place] [address] Jun, [facility] [address] [facility] [id number], [place] [address] Jun, [facility] [address] [facility] [id number], [place] [address] Jun, [facility] [address] [facility] [id number], [place] [address] Jun, [facility] [address] [facility] [id number], [place] [address] Mar, [facility] [address] [facility] [id number], [place] [address] Jan, [facility] [address] [facility] [id number], [place] [address] December, IMMUNIZATIONS No Known Immunizations SOCIAL HISTORY Never Assessed [place] [place] VITAL SIGNS MEDICATIONS Unknown Medications RESULTS No Results PROCEDURES No Known [...]
--- OUTSIDE RECORDS SUMMARY | 2019-03-05 10:41 | XMS REPORT ---
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 Name Role Phone Migration, Doctor Unavailable Unavailable PROBLEMS Type Condition ICD9-CM Code XID97-ER Code Onset Dates Condition Status SNOMED Code Problem Controlled restless leg syndrome G25.81 Active 45324170 Problem GERD (gastroesophageal reflux disease) K21.9 Active 103933770 Problem Mild single current episode of major depressive disorder F32.0 Active 82102986 Problem Recurrent major depressive disorder, in full remission F33.42 Active 65314723 Problem Benign essential HTN I10 Active 5238570 Problem Low back pain M54.5 Active 388551801 Problem Morbid (severe) obesity due to excess calories E66.01 Active 554259264 Problem OAB (overactive bladder) N32.81 Active 817195115 Problem Other chronic pain G89.29 Active 91835278 Problem Type 2 diabetes mellitus without complication, without long-term current use of insulin E11.9 Active [id number] ALLERGIES No Information ENCOUNTERS Encounter Location Date Diagnosis [facility] [id number] [place] [address] December, [facility] [id number] [place] [address] December, Degenerative arthritis of knee M17.9 [facility] [id number] [place] [address] Nov, Mild single current episode of major depressive disorder F32.0 [facility] [id number] [place] [address] Nov, Degenerative arthritis of knee M17.9 [place] [facility] [id number] [place] [address] Oct, Type 2 diabetes mellitus without complication, without long-term current use of insulin E11.9 ; Low back pain M54.5 ; Other chronic pain G89.29 ; Recurrent major depressive disorder, in full remission F33.42 and Benign essential HTN I10 [facility] [id number] [place] [address] Oct, Degenerative arthritis of knee M17.9 [facility] [id number] [place] [address] Sep, Degenerative arthritis of knee M17.9 [facility] [id number] [place] [address] Sep, [facility] [id number] [place] [address] Aug, Degenerative arthritis of knee M17.9 [facility] [id number] [place] [address] Aug, [facility] [address] [address] Jul, Dysuria R30.0 ; Acute cystitis without hematuria N30.00 ; Vaginal odor N89.8 and BMI 40.0-44.9, adult Z68.41 [facility] [id number] [place] [address] Jul, [facility] [id number] [place] [address] Jul, Degenerative arthritis of knee M17.9 [facility] [id number] [place] [address] Jun, Degenerative arthritis of knee M17.9 [facility] [id number] [place] [address] Jun, Degenerative arthritis of knee M17.9 [facility] [id number] [place] [address] Jun, Benign essential HTN I10 ; Type 2 diabetes mellitus without complication, without long-term current use of insulin E11.9 ; Acute cystitis without hematuria N30.00 ; Low back pain M54.5 ; Other chronic pain G89.29 and BMI 40.0- 44.9, adult Z68.41 [facility] [address] [address] May, Neuroma of foot D36.13 and 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 [facility] [address] [address] May, Degenerative arthritis of knee M17.9 [facility] [address] [address] May, Encounter for immunization Z23 [facility] [address] [address] Apr, [facility] [address] [address] Apr, Degenerative arthritis of knee M17.9 [facility] [address] [address] Mar, Degenerative arthritis of knee M17.9 [facility] [address] [address] Mar, Type 2 diabetes mellitus with diabetic peripheral angiopathy without gangrene, without long-term current use of insulin E11.51 ; Benign essential HTN I10 ; Degenerative arthritis of knee M17.9 and Mild single current episode of major depressive disorder F32.0 [facility] [id number] [place] [address] Feb, [facility] [address] [address] Feb, Degenerative arthritis of knee M17.9 [facility] [id number] [place] [address] Feb, [facility] [address] [address] Jan, Degenerative arthritis of knee M17.9 [facility] [address] [place] [address] Jan, Herpes zoster without complication B02.9 and BMI 40.0-44.9, adult Z68.41 [facility] [address] [place] [address] December, Degenerative arthritis of knee M17.9 [facility] [id number] [place] [address] Nov, Benign essential HTN I10 ; Type [...] Z68.41 and GERD (gastroesophageal reflux disease) K21.9 [facility] [id number] [place] [address] Nov, [facility] [id number] [place] [address] Oct, Degenerative arthritis of knee M17.9 [facility] [id number] [place] [address] Oct, [facility] [id number] [place] [address] Oct, Type 2 diabetes mellitus with diabetic peripheral angiopathy without gangrene, without long-term current use of insulin E11.51 and Controlled substance agreement signed Z79.899 [facility] [id number] [place] [address] Oct, Degenerative arthritis of knee M17.9 [facility] [address] [address] Sep, Type 2 diabetes mellitus with diabetic peripheral angiopathy without gangrene, without long-term current use of insulin E11.51 ; Benign essential HTN I10 ; BMI 40.0-44.9, adult Z68.41 ; Mild single current episode of major depressive disorder F32.0 ; OAB (overactive bladder) N32.81 ; Degenerative arthritis of knee M17.9 and GERD (gastroesophageal reflux disease) K21.9 [place] [id number] [place] [address] Aug, Joint pain and swelling due to Lyme disease A69.20 [facility] [address] [address] Jun, [address] [address] May, 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 ; Benign essential HTN I10 ; 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 ; Body mass index (BMI) of 40.0-44.9 in adult Z68.41 and Morbid (severe) obesity due to excess calories E66.01 [facility] [id number] [place] [address] May, Encounter for immunization Z23 [address] [address] May, 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 [facility] [id number] [place] [address] Mar, Mild single current episode of major depressive disorder F32.0 [facility] [id number] [place] [address] Mar, Joint pain and swelling due to Lyme disease A69.20 [facility] [id number] [place] [address] Feb, Izzy infection B37.9 [place] [id number] [place] [address] Jan, Insect bite (nonvenomous) of abdominal wall, initial encounter S30.861A and Joint pain and swelling due to Lyme disease A69.20 [facility] [id number] [place] [address] Jan, [facility] [id number] [place] [address] 16 Sep, 2016 Mild single current episode of major depressive disorder F32.0 and 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 [facility] [id number] [place] [address] 13 Sep, 2016 Controlled restless leg syndrome G25.81 and Cramp of both lower extremities R25.2 [facility] [id number] [place] [address] Aug, 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 ; Controlled restless leg syndrome G25.81 ; SI (stress incontinence), female N39.3 ; Benign essential HTN I10 ; 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 ; GERD (gastroesophageal reflux disease) K21.9 ; Screening cholesterol level Z13.220 and Mild single current episode of major depressive disorder F32.0 [facility] [id number] [place] [address] Aug, [facility] [id number] [place] [address] May, [facility] [id number] [place] [address] May, Encounter for immunization Z23 [facility] [id number] [place] [address] Apr, [facility] [facility] [address] [address] Apr, [facility] [facility] [id number] [place] [address] Apr, SAMANTHA (secretory otitis media), right H65.91 ; 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 ; Controlled restless leg syndrome G25.81 ; Edema extremities R60.0 ; SI (stress incontinence), female N39.3 ; Benign essential HTN I10 ; Degenerative arthritis of knee M17.9 and Major depressive disorder with single episode, remission status unspecified F32.9 [facility] [address] [address] Apr, OME (otitis media with effusion), right H65.91 [facility] [id number] [place] [address] Mar, [facility] [facility] [id number] [place] [address] Mar, 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 ; Controlled restless leg syndrome G25.81 ; SI (stress incontinence), female N39.3 ; Benign essential HTN I10 ; GERD (gastroesophageal reflux disease) K21.9 ; Knee pain M25.569 and Major depressive disorder with single episode, remission status unspecified F32.9 [facility] [id number] [place] [address] Mar, [facility] [id number] [place] [address] Mar, [facility] [address] [place] [address] Jan, Pre-op exam Z01.818 [facility] [id number] [place] [address] Oct, Urinary tract infection N39.0 ; Benign essential HTN I10 ; Controlled restless leg syndrome G25.81 ; Edema extremities R60.0 ; Degenerative arthritis of knee M17.9 and GERD (gastroesophageal reflux disease) K21.9 [facility] [address] [address] Oct, Izzy albicans infection B37.9 [facility] [id number] [address] Sep, [facility] [id number] [place] [address] Sep, UTI (urinary tract infection) N39.0 ; Benign essential HTN I10 ; 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 ; Controlled restless leg syndrome G25.81 ; Edema extremities R60.0 ; SI (stress incontinence), female N39.3 and 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 [facility] [id number] [place] [address] 12 Sep, 2015 UTI (urinary tract infection) N39.0 [facility] [id number] [place] [address] Aug, Pre-op evaluation Z01.818 [place] [id number] [place] [address] Aug, [facility] [id number] [place] [address] Aug, [facility] [id number] [place] [address] Jul, Right hip pain M25.551 ; 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 and Knee pain M25.569 [place] [id number] [place] [address] Jul, [facility] [id number] [place] [address] Jun, Knee pain M25.569 ; 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 and Degenerative arthritis of knee M17.9 [address] [place] [address] Jun, [facility] [facility] [id number] [place] [address] 30 Apr, 2015 Diabetes mellitus 250.00 ; Influenza vaccine administered V04.81 ; Incontinence 788.30 ; Restless legs syndrome 333.94 ; Sciatica 724.3 ; Essential hypertension, benign 401.1 ; Edema 782.3 and Depression (emotion) 311 [facility] [id number] [place] [address] Mar, Pain in joint, lower leg 719.46 and Sciatica 724.3 [facility] [facility] [address] [address] Mar, [facility] [id number] [place] [address] Feb, Pain in joint, site unspecified 719.40 ; Other urinary incontinence 788.39 ; Pain in joint, lower leg 719.46 ; Edema 782.3 ; Sciatica 724.3 ; Essential hypertension, benign 401.1 ; Depression 311 ; Diabetes mellitus 250.00 ; Incontinence 788.30 and Restless legs syndrome 333.94 [facility] [id number] [place] [address] Feb, [facility] [id number] [place] [address] Nov, [facility] [id number] [place] [address] Nov, [facility] [id number] [place] [address] Oct, [facility] [id number] [place] [address] Oct, [facility] [id number] [place] [address] Aug, [facility] [id number] [place] [address] Aug, [facility] [id number] [place] [address] Aug, [facility] [place] [facility] [address] [id number] [place] [address] Aug, [facility] [place] [facility] [address] [id number] [place] [address] Aug, [facility] [place] [facility] [address] [id number] [place] [address] Aug, [facility] [place] [facility] [address] [id number] [place] [address] Jun, [facility] [place] [facility] [address] [id number] [place] [address] Jun, [facility] [place] [facility] [address] [id number] [place] [address] Jun, [facility] [place] [facility] [address] [id number] [place] [address] Jun, [facility] [place] [facility] [address] [id number] [place] [address] Jun, [facility] [place] [facility] [address] [id number] [place] [address] Jun, [facility] [place] [facility] [address] [id number] [place] [address] May, [facility] [place] [facility] [address] [id number] [place] [address] 31 May, 2014 [facility] [place] [facility] [address] [id number] [place] [address] 16 May, 2014 [facility] [place] [facility] [address] [id number] [place] [address] 16 May, 2014 [facility] [place] [facility] [address] [id number] [place] [address] 22 Apr, 2014 [facility] [place] [facility] [address] [id number] [place] [address] 22 Apr, 2014 [facility] [place] [facility] [address] [id number] [place] [address] Apr, [facility] [place] [facility] [address] [id number] [place] [address] Apr, [facility] [place] [facility] [address] [id number] [place] [address] Mar, [facility] [place] [facility] [address] [id number] [place] [address] Mar, [facility] [place] [facility] [address] [id number] [place] [address] Mar, [facility] [place] [facility] [address] [id number] [place] [address] Mar, [facility] [place] [facility] [address] [id number] [place] [address] Mar, [facility] [place] [facility] [address] [id number] [place] [address] Mar, [facility] [place] [facility] [address] [id number] [place] [address] Feb, [facility] [place] [facility] [address] [id number] [place] [address] Feb, [facility] [place] [facility] [address] [id number] [place] [address] Jan, [facility] [place] [facility] [address] [id number] [place] [address] Jan, [facility] [place] [facility] [address] [id number] [place] [address] Jan, [facility] [place] [facility] [address] [id number] [place] [address] Jan, [facility] [place] [facility] [address] [id number] [place] [address] December, [facility] [place] [facility] [address] [id number] [place] [address] December, [facility] [place] [facility] [address] [id number] [place] [address] December, [facility] [place] [facility] [address] [id number] [place] [address] December, [facility] [place] [facility] [address] [id number] [place] [address] December, [facility] [place] [facility] [address] [id number] [place] [address] December, [facility] [place] [facility] [address] [id number] [place] [address] December, [facility] [place] [facility] [address] [id number] [place] [address] December, [facility] [place] [facility] [address] [id number] [place] [address] Nov, [facility] [place] [facility] [address] [id number] [place] [address] Nov, [facility] [place] [facility] [address] [id number] [place] [address] Nov, [facility] [place] [facility] [address] [id number] [place] [address] Nov, [facility] [place] [facility] [address] [id number] [place] [address] Oct, [facility] [place] [facility] [address] [id number] [place] [address] Oct, [facility] [place] [facility] [address] [id number] [place] [address] Oct, [facility] [place] [facility] [address] [id number] [place] [address] Oct, [facility] [place] [facility] [address] [id number] [place] [address] Oct, [facility] [place] [facility] [address] [id number] [place] [address] Oct, [facility] [place] [facility] [address] [id number] [place] [address] Oct, [facility] [place] [facility] [address] [id number] [place] [address] Oct, [facility] [place] [facility] [address] [id number] [place] [address] Sep, [facility] [place] [facility] [address] [id number] [place] [address] Sep, [facility] [place] [facility] [address] [id number] [place] [address] Sep, [facility] [place] [facility] [address] [id number] [place] [address] Sep, [facility] [place] [facility] [address] [id number] [place] [address] Sep, [facility] [place] [facility] [address] [id number] [place] [address] Aug, [facility] [place] [facility] [address] [id number] [place] [address] Aug, [facility] [place] [facility] [address] [id number] [place] [address] Jul, [facility] [place] [facility] [address] [id number] [place] [address] Jul, [facility] [place] [facility] [address] [id number] [place] [address] Jul, [facility] [place] [facility] [address] [id number] [place] [address] Jul, [facility] [place] [facility] [address] [id number] [place] [address] Jul, [facility] [place] [facility] [address] [id number] [place] [address] Jul, [facility] [place] [facility] [address] [id number] [address] Jul, [facility] [address] [id number] [place] [address] Jun, [facility] [place] [facility] [address] [id number] [address] Jun, [facility] [place] [facility] [address] [id number] [place] [address] Jun, [facility] [place] [facility] [address] [id number] [address] Jun, [facility] [place] [facility] [id number] [place] [address], [place] [address] Jun, [facility] [place] [facility] [address] [id number] [place] [address] Jun, [facility] [address] [id number], [place] [address] Jun, [facility] [place] [facility] [address] [id number], [place] [address] Jun, [facility] [place] [facility] [address] [id number], [place] [address] Jun, [facility] [place] [facility] [address] [facility] [id number] [address] Jun, [facility] [place] [facility] [address] [id number], [place] [address] Jun, [facility] [place] [facility] [address] [id number], [place] [address] Jun, [facility] [place] [facility] [address] [id number], [place] [address] Jun, [facility] [place] [facility] [address] [id number], [place] [address] May, [facility] [place] [facility] [address] [id number], [place] [address] May, [facility] [place] [facility] [address] [id number] [place] [address] 18 May, 2013 [facility] [place] [facility] [address] [id number] [place] [address] 18 May, 2013 [facility] [place] [facility] [address] [id number] [place] [address] May, [facility] [place] [facility] [address] [id number] [place] [address] 11 May, 2013 [facility] [place] [facility] [address] [id number] [place] [address] 10 May, 2013 [facility] [place] [facility] [address] [id number] [place] [address] 10 May, 2013 [facility] [place] [facility] [address] [id number] [place] [address] 09 May, 2013 [facility] [place] [facility] [address] [id number] [place] [address] 23 Apr, 2013 [facility] [place] [facility] [address] [id number] [place] [address] 21 Apr, 2013 [facility] [place] [facility] [address] [id number] [place] [address] 11 Apr, 2013 [facility] [place] [facility] [address] [id number] [place] [address] 09 Apr, 2013 [facility] [place] [facility] [address] [id number] [place] [address] 15 Mar, 2013 [facility] [place] [facility] [address] [id number] [place] [address] 14 Mar, 2013 [facility] [place] [facility] [address] [id number] [place] [address] 02 Mar, 2013 [facility] [place] [facility] [address] [id number] [place] [address] 13 Jan, 2013 [facility] [place] [facility] [address] [id number] [place] [address] Jan, [facility] [address] [id number] [place] [address] Jan, [facility] [place] [facility] [address] [id number] [place] [address] Jan, [facility] [place] [facility] [address] [id number] [place] [address] December, [facility] [place] [facility] [address] [id number] [place] [address] Nov, [facility] [address] [id number] [place] [address] Nov, [facility] [place] [facility] [address] [id number] [place] [address] Sep, [facility] [place] [facility] [address] [id number] [place] [address] Sep, [facility] [place] [facility] [address] [id number] [place] [address] Sep, [facility] [place] [facility] [address] [id number] [place] [address] Aug, [facility] [place] [facility] [address] [id number] [place] [address] Aug, [facility] [facility] [address] [id number] [address] Aug, [facility] [facility] [address] [id number], [place] [address] 16 Aug, 2012 [facility] [place] [facility] [address] [id number] [place] [address] Aug, [facility] [place] [facility] [address] [id number] [place] [address] 15 Aug, 2012 [facility] [place] [facility] [address] [id number] [place] [address] Aug, [facility] [place] [facility] [address] [id number] [place] [address] Jul, [facility] [place] [facility] [address] [id number] [place] [address] Jul, [facility] [place] [facility] [address] [id number] [place] [address] Jun, [facility] [place] [facility] [address] [id number] [place] [address] Jun, [facility] [place] [facility] [address] [id number] [place] [address] May, [facility] [id number] [place] [address], [place] [address] May, [facility] [facility] [address] [id number] [place] [address] May, [facility] [place] [facility] [address] [id number] [place] [address] May, [facility] [place] [facility] [address] [id number] [place] [address] Apr, [facility] [place] [address] [id number] [place] [address] 24 Apr, 2012 [facility] [place] [facility] [address] [id number] [place] [address] 21 Apr, 2012 [facility] [place] [facility] [address] [id number] [place] [address] 20 Apr, 2012 [facility] [place] [facility] [address] [id number] [place] [address] 20 Apr, 2012 [facility] [place] [facility] [address] [id number] [place] [address] 19 Apr, 2012 [facility] [place] [facility] [address] [id number] [place] [address] 12 Apr, 2012 [facility] [place] [facility] [address] [id number] [place] [address] Mar, [facility] [address] [id number], [place] [address] December, [facility] [address] [id number] [address] December, [facility] [address] [facility] [id number], [place] [address] December, [facility] [address] [id number] [place] [address] Sep, [facility] [address] [id number] [place] [address] Sep, [facility] [address] [facility] [id number], [place] [address] Aug, [facility] [address] [facility] [id number][place] [address] Aug, [facility] [address] [facility] [id number], [place] [address] Aug, [facility] [address] [facility] [id number], [place] [address] Jun, [facility] [address] [facility] [id number], [place] [address] Jun, [facility] [address] [facility] [id number], [place] [address] Jun, [facility] [address] [facility] [id number], [place] [address] Jun, [facility] [address] [facility] [id number][place] [address] Mar, [facility] [address] [facility] [id number][place] [address] Jan, [facility] [address] [facility] [id number][place] [address] December, IMMUNIZATIONS No Known Immunizations SOCIAL HISTORY Never Assessed REASON FOR VISIT EMR-[facility] PLAN OF CARE VITAL SIGNS MEDICATIONS Unknown [...]
--- OUTSIDE RECORDS SUMMARY | 2019-03-05 10:41 | XMS REPORT ---
Author Author PHILIP CATHERINE Organization [facility] Address [address] [place] [address] Care Team Providers Care Land Title Examiner Name Role Phone PHILIP CATHERINE Unavailable PROBLEMS Type Condition ICD9-CM Code GCU90-EP Code Onset Dates Condition Status SNOMED Code Problem Controlled restless leg syndrome G25.81 Active 82820086 Problem GERD (gastroesophageal reflux disease) K21.9 Active 035850605 Problem Mild single current episode of major depressive disorder F32.0 Active 61096321 Problem Recurrent major depressive disorder, in full remission F33.42 Active 45450938 Problem Benign essential HTN I10 Active 0869911 Problem Low back pain M54.5 Active 089397926 Problem Morbid (severe) obesity due to excess calories E66.01 Active 725302622 Problem OAB (overactive bladder) N32.81 Active 839209022 Problem Other chronic pain G89.29 Active 53157070 Problem Type 2 diabetes mellitus without complication, without long-term current use of insulin E11.9 Active 330335092 ALLERGIES No Information ENCOUNTERS Encounter Location Date Diagnosis [place] [id number] [place] [address] December, [facility] [id number] [place] [address] December, Degenerative arthritis of knee M17.9 [facility] [address] [place] [id number] [place] [address] Nov, Mild single current episode of major depressive disorder F32.0 [facility] [id number] [place] [address] Nov, Degenerative arthritis of knee M17.9 [facility] [id number] [place] [address] Oct, Type 2 diabetes mellitus without complication, without long-term current use of insulin E11.9 ; Low back pain M54.5 ; Other chronic pain G89.29 ; Recurrent major depressive disorder, in full remission F33.42 and Benign essential HTN I10 [facility] [address] [place] [id number] [place] [address] Oct, Degenerative arthritis of knee M17.9 [facility] [id number] [place] [address] Sep, Degenerative arthritis of knee M17.9 [facility] [address] [place] [id number] [place] [address] Sep, [facility] [address] [address] Aug, Degenerative arthritis of knee M17.9 [facility] [address] [place] [id number] [place] [address] Aug, [facility] [id number] [place] [address] Jul, Dysuria R30.0 ; Acute cystitis without hematuria N30.00 ; Vaginal odor N89.8 and BMI 40.0-44.9, adult Z68.41 [facility] [address] [id number] [place] [address] Jul, [facility] [id number] [place] [address] Jul, Degenerative arthritis of knee M17.9 [facility] [address] [id number] [place] [address] Jun, Degenerative arthritis of knee M17.9 [facility] [id number] [place] [address] Jun, Degenerative arthritis of knee M17.9 [facility] [id number] [place] [address] Jun, Benign essential HTN I10 ; Type 2 diabetes mellitus without complication, without long-term current use of insulin E11.9 ; Acute cystitis without hematuria N30.00 ; Low back pain M54.5 ; Other chronic pain G89.29 and BMI 40.0- 44.9, adult Z68.41 [place] [address] [address] [id number] [place] [address] May, Neuroma of foot D36.13 and 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 [place] [address] [address] [id number] [place] [address] May, Degenerative arthritis of knee M17.9 [place] [address] [address] May, Encounter for immunization Z23 [place] [address] [address] Apr, [place] [address] [address] Apr, Degenerative arthritis of knee M17.9 [place] [address] [id number] [place] [address] Mar, Degenerative arthritis of knee M17.9 [place] [address] [address] [id number] [place] [address] Mar, Type 2 diabetes mellitus with diabetic peripheral angiopathy without gangrene, without long-term current use of insulin E11.51 ; Benign essential HTN I10 ; Degenerative arthritis of knee M17.9 and Mild single current episode of major depressive disorder F32.0 [place] [address] [id number] [place] [address] Feb, [place] [address] [address] Feb, Degenerative arthritis of knee M17.9 [place] [address] [id number] [place] [address] Feb, [place] [address] [address] [id number] [place] [address] Jan, Degenerative arthritis of knee M17.9 [place] [address] [address] [id number] [place] [address] Jan, Herpes zoster without complication B02.9 and BMI 40.0-44.9, adult Z68.41 [place] [address] [address] [id number] [place] [address] December, Degenerative arthritis of knee M17.9 [place] [address] [address] [id number] [place] [address] Nov, Benign essential HTN I10 ; Type [...] Z68.41 and GERD (gastroesophageal reflux disease) K21.9 [place] [address] [id number] [place] [address] Nov, [place] [address] [address] [id number] [place] [address] Oct, Degenerative arthritis of knee M17.9 [place] [address] [id number] [place] [address] Oct, [place] [address] [place] [id number] [place] [address] Oct, Type 2 diabetes mellitus with diabetic peripheral angiopathy without gangrene, without long-term current use of insulin E11.51 and Controlled substance agreement signed Z79.899 [place] [address] [place] [address] Oct, Degenerative arthritis of knee M17.9 [place] [address] [address] Sep, Type 2 diabetes mellitus with diabetic peripheral angiopathy without gangrene, without long-term current use of insulin E11.51 ; Benign essential HTN I10 ; BMI 40.0-44.9, adult Z68.41 ; Mild single current episode of major depressive disorder F32.0 ; OAB (overactive bladder) N32.81 ; Degenerative arthritis of knee M17.9 and GERD (gastroesophageal reflux disease) K21.[address] [address] Aug, Joint pain and swelling due to Lyme disease A69.[address] [address] Jun, [address] [address] May, 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 ; Benign essential HTN I10 ; 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 ; Body mass index (BMI) of 40.0-44.9 in adult Z68.41 and Morbid (severe) obesity due to excess calories E66.[address] [address] May, Encounter for immunization Z23 [address] [address] May, 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 [place] [id number] [place] [address] Mar, Mild single current episode of major depressive disorder F32.[address] [address] Mar, Joint pain and swelling due to Lyme disease A69.[address] [address] Feb, Izzy infection B37.9 [place] [id number] [place] [address] 23 Jan, 2017 Insect bite (nonvenomous) of abdominal wall, initial encounter S30.861A and Joint pain and swelling due to Lyme disease A69.20 [place] [address] [place] [id number] [place] [address] Jan, [place] [address] [address] 16 Sep, 2016 Mild single current episode of major depressive disorder F32.0 and 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 [address] 13 Sep, 2016 Controlled restless leg syndrome G25.81 and Cramp of both lower extremities R25.[address] [address] Aug, 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 ; Controlled restless leg syndrome G25.81 ; SI (stress incontinence), female N39.3 ; Benign essential HTN I10 ; 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 ; GERD (gastroesophageal reflux disease) K21.9 ; Screening cholesterol level Z13.220 and Mild single current episode of major depressive disorder F32.0 [place] [id number] [place] [address] Aug, [place] [id number] [place] [address] May, [place] [id number] [place] [address] May, Encounter for immunization Z23 [address] [address] Apr, [place] [address] [place] [id number] [place] [address] Apr, [address] [address] Apr, SAMANTHA (secretory otitis media), right H65.91 ; 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 ; Controlled restless leg syndrome G25.81 ; Edema extremities R60.0 ; SI (stress incontinence), female N39.3 ; Benign essential HTN I10 ; Degenerative arthritis of knee M17.9 and Major depressive disorder with single episode, remission status unspecified F32.9 [place] [address] [place] [id number] [place] [address] Apr, OME (otitis media with effusion), right H65.91 [place] [address] [place] [id number] [place] [address] Mar, [place] [address] [place] [id number] [place] [address] Mar, 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 ; Controlled restless leg syndrome G25.81 ; SI (stress incontinence), female N39.3 ; Benign essential HTN I10 ; GERD (gastroesophageal reflux disease) K21.9 ; Knee pain M25.569 and Major depressive disorder with single episode, remission status unspecified F32.9 [place] [address] [place] [address] Mar, [place] [address] [place] [id number] [place] [address] Mar, [place] [address] [place] [id number] [place] [address] Jan, Pre-op exam Z01.818 [place] [address] [place] [id number] [place] [address] Oct, Urinary tract infection N39.0 ; Benign essential HTN I10 ; Controlled restless leg syndrome G25.81 ; Edema extremities R60.0 ; Degenerative arthritis of knee M17.9 and GERD (gastroesophageal reflux disease) K21.9 [facility] [address] [id number] [place] [address] Oct, Izzy albicans infection B37.9 [place] [address] [address] Sep, [place] [address] [place] [id number] [place] [address] Sep, UTI (urinary tract infection) N39.0 ; Benign essential HTN I10 ; 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 ; Controlled restless leg syndrome G25.81 ; Edema extremities R60.0 ; SI (stress incontinence), female N39.3 and 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 [place] [address] [place] [id number] [place] [address] Sep, UTI (urinary tract infection) N39.0 [place] [address] [place] [id number] [place] [address] Aug, Pre-op evaluation Z01.818 [place] [address] [place] [id number] [place] [address] Aug, [place] [address] [place] [id number] [place] [address] Aug, [place] [address] [place] [id number] [place] [address] Jul, Right hip pain M25.551 ; 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 and Knee pain M25.569 [place] [address] [address] Jul, [place] [address] [place] [id number] [place] [address] Jun, Knee pain M25.569 ; 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 and Degenerative arthritis of knee M17.9 [place] [address] [address] Jun, [place] [address] [place] [id number] [address] Apr, Diabetes mellitus 250.00 ; Influenza vaccine administered V04.81 ; Incontinence 788.30 ; Restless legs syndrome 333.94 ; Sciatica 724.3 ; Essential hypertension, benign 401.1 ; Edema 782.3 and Depression (emotion) 311 [facility] [address] [place] [id number] [place] [address] Mar, Pain in joint, lower leg 719.46 and Sciatica 724.3 [place] [address] [place] [id number] [place] [address] Mar, [place] [address] [place] [id number] [place] [address] Feb, Pain in joint, site unspecified 719.40 ; Other urinary incontinence 788.39 ; Pain in joint, lower leg 719.46 ; Edema 782.3 ; Sciatica 724.3 ; Essential hypertension, benign 401.1 ; Depression 311 ; Diabetes mellitus 250.00 ; Incontinence 788.30 and Restless legs syndrome 333.94 [place] [address] [place] [id number] [place] [address] Feb, [facility] [address] [place] [id number] [place] [address] Nov, [facility] [address] [address] Nov, [facility] [address] [place] [id number] [place] [address] Oct, [facility] [address] [place] [address] Oct, [facility] [address] [place] [id number] [place] [address] Aug, [facility] [address] [address] Aug, [facility] [address] [id number] [place] [address] Aug, [facility] [address] [id number] [place] [address] Aug, [facility] [place] [facility] [address] [id number] [place] [address] Aug, [facility] [place] [facility] [address] [id number] [place] [address] Aug, [facility] [place] [facility] [address] [id number] [place] [address] Jun, [facility] [place] [facility] [address] [id number] [place] [address] Jun, [facility] [place] [facility] [address] [id number] [place] [address] Jun, [facility] [place] [facility] [address] [id number] [place] [address] Jun, [facility] [place] [facility] [address] [id number] [place] [address] Jun, [facility] [place] [facility] [address] [id number] [place] [address] Jun, [facility] [place] [facility] [address] [id number] [place] [address] May, [facility] [place] [facility] [address] [id number] [place] [address] 31 May, 2014 [facility] [place] [facility] [address] [id number] [place] [address] May, [facility] [place] [facility] [address] [id number] [place] [address] May, [facility] [place] [facility] [address] [id number] [place] [address] Apr, [facility] [place] [facility] [address] [id number] [place] [address] Apr, [facility] [place] [facility] [address] [id number] [place] [address] Apr, [facility] [place] [facility] [address] [id number] [place] [address] Apr, [facility] [place] [facility] [address] [id number] [place] [address] Mar, [facility] [place] [facility] [address] [id number] [place] [address] Mar, [facility] [place] [facility] [address] [id number] [place] [address] Mar, [facility] [place] [facility] [address] [id number] [place] [address] Mar, [facility] [place] [facility] [address] [id number] [place] [address] Mar, [facility] [place] [facility] [address] [id number] [place] [address] Mar, [facility] [place] [facility] [address] [id number] [place] [address] Feb, [facility] [place] [facility] [address] [id number] [place] [address] Feb, [facility] [place] [facility] [address] [id number] [place] [address] Jan, [facility] [place] [facility] [address] [id number] [place] [address] Jan, [facility] [place] [facility] [address] [id number] [place] [address] Jan, [facility] [place] [facility] [address] [id number] [place] [address] Jan, [facility] [place] [facility] [address] [id number] [place] [address] December, [facility] [place] [facility] [address] [id number] [place] [address] December, [facility] [place] [facility] [address] [id number] [place] [address] December, [facility] [place] [facility] [address] [id number] [place] [address] December, [facility] [place] [facility] [address] [id number] [place] [address] December, [facility] [place] [facility] [address] [id number] [place] [address] December, [facility] [place] [facility] [address] [id number] [place] [address] December, [facility] [place] [facility] [address] [id number] [place] [address] December, [facility] [place] [facility] [address] [id number] [place] [address] Nov, [facility] [place] [facility] [address] [id number] [place] [address] Nov, [facility] [place] [facility] [address] [id number] [place] [address] Nov, [facility] [place] [facility] [address] [id number] [place] [address] Nov, [facility] [place] [facility] [address] [id number] [place] [address] Oct, [facility] [place] [facility] [address] [id number] [place] [address] Oct, [facility] [place] [facility] [address] [id number] [place] [address] Oct, [facility] [place] [facility] [address] [id number] [place] [address] Oct, [facility] [place] [facility] [address] [id number] [place] [address] Oct, [facility] [place] [facility] [address] [id number] [place] [address] Oct, [facility] [place] [facility] [address] [id number] [place] [address] Oct, [facility] [place] [facility] [address] [id number] [place] [address] Oct, [facility] [place] [facility] [address] [id number] [place] [address] Sep, [facility] [place] [facility] [address] [id number] [place] [address] Sep, [facility] [place] [facility] [address] [id number] [place] [address] Sep, [facility] [place] [facility] [address] [id number] [place] [address] Sep, [facility] [place] [facility] [address] [id number] [place] [address] Sep, [facility] [place] [facility] [address] [id number] [place] [address] Aug, [facility] [place] [facility] [address] [id number] [place] [address] Aug, [facility] [place] [facility] [address] [id number] [place] [address] Jul, [facility] [place] [facility] [address] [id number] [place] [address] Jul, [facility] [place] [facility] [address] [id number] [place] [address] Jul, [facility] [place] [facility] [address] [id number] [place] [address] Jul, [facility] [place] [facility] [address] [id number] [place] [address] Jul, [facility] [place] [facility] [address] [id number], [place] [address] Jul, [facility] [place] [facility] [address] [id number] [place] [address] Jul, [facility] [place] [facility] [address] [id number] [address] Jun, [facility] [place] [facility] [address] [id number] [place] [address] Jun, [facility] [place] [facility] [address] [id number], [place] [address] Jun, [facility] [place] [facility] [address] [id number] [place] [address] Jun, [facility] [place] [facility] [address] [id number], [place] [address] Jun, [facility] [place] [facility] [address] [id number], [place] [address] Jun, [facility] [place] [facility] [address] [id number], [place] [address] Jun, [facility] [place] [facility] [address] [id number], [place] [address] Jun, [facility] [place] [facility] [address] [id number], [place] [address] Jun, [facility] [place] [facility] [address] [id number], [place] [address] Jun, [facility] [place] [facility] [address] [id number], [place] [address] Jun, [facility] [place] [facility] [address] [id number], [place] [address] Jun, [facility] [place] [facility] [address] [id number], [place] [address] Jun, [facility] [place] [facility] [address] [id number], [place] [address] May, [facility] [place] [facility] [address] [id number] [place] [address] 24 May, 2013 [facility] [address] [id number] [place] [address] 18 May, 2013 [facility] [place] [facility] [address] [id number] [place] [address] 18 May, 2013 [facility] [address] [id number] [place] [address] May, [facility] [place] [facility] [address] [id number] [place] [address] 11 May, 2013 [facility] [address] [id number] [place] [address] May, [facility] [place] [facility] [address] [id number] [place] [address] 10 May, 2013 [facility] [place] [facility] [address] [id number] [place] [address] May, [facility] [address] [id number] [place] [address] 23 Apr, 2013 [facility] [place] [facility] [address] [id number] [place] [address] 21 Apr, 2013 [facility] [address] [id number] [place] [address] 11 Apr, 2013 [facility] [place] [facility] [address] [id number] [place] [address] 09 Apr, 2013 [facility] [place] [facility] [address] [id number] [place] [address] 15 Mar, 2013 [facility] [place] [facility] [address] [id number] [place] [address] 14 Mar, 2013 [facility] [place] [facility] [address] [id number] [place] [address] 02 Mar, 2013 [facility] [place] [facility] [address] [id number] [place] [address] 13 Jan, 2013 [facility] [address] [id number] [place] [address] Jan, [facility] [address] [id number] [place] [address] 04 Jan, 2013 [facility] [address] [id number] [place] [address] Jan, [facility] [address] [id number] [place] [address] December, [facility] [address] [id number] [place] [address] Nov, [facility] [address] [id number] [place] [address] Nov, [facility] [address] [id number] [place] [address] Sep, [facility] [address] [id number], [place] [address] Sep, [facility] [address] [id number] [place] [address] Sep, [facility] [address] [id number] [place] [address] Aug, [facility] [address] [id number] [place] [address] 18 Aug, 2012 [facility] [place] [facility] [address] [id number], [place] [address] 17 Aug, 2012 [facility] [place] [facility] [address] [id number] [place] [address] 16 Aug, 2012 [facility] [place] [facility] [address] [id number] [place] [id number] 16 Aug, 2012 [facility] [place] [facility] [address] [id number] [place] [address] 15 Aug, 2012 [facility] [place] [facility] [address] [id number] [place] [address] Aug, [facility] [place] [facility] [address] [id number] [place] [address] Jul, [facility] [place] [facility] [address] [id number] [place] [address] Jul, [facility] [place] [facility] [address] [id number] [place] [address] Jun, [facility] [place] [facility] [address] [id number] [place] [address] Jun, [facility] [place] [facility] [address] [id number] [place] [address] May, [facility] [place] [facility] [address] [id number] [place] [address] May, [facility] [place] [facility] [address] [id number] [place] [address] May, [facility] [place] [facility] [address] [id number] [place] [address] May, [facility] [place] [facility] [address] [id number] [place] [address] 26 Apr, 2012 [facility] [place] [facility] [address] [facility] [id number] [place] [address] 24 Apr, 2012 [facility] [place] [facility] [address] [id number] [place] [address] 21 Apr, 2012 [facility] [place] [facility] [address] [id number] [place] [address] 20 Apr, 2012 [facility] [place] [facility] [address] [id number] [place] [address] 20 Apr, 2012 [facility] [place] [facility] [address] [facility] [id number] [place] [address] 19 Apr, 2012 [facility] [place] [facility] [address] [facility] [id number] [place] [address] 12 Apr, 2012 [facility] [place] [facility] [address] [id number] [place] [address] Mar, [facility] [address] [id number] [place] [address] December, [facility] [place] [facility] [address] [id number] [place] [address] December, [facility] [place] [facility] [address] [id number] [place] [address] December, [facility] [place] [facility] [address] [id number] [place] [address] Sep, [facility] [place] [facility] [address] [id number] [place] [address] Sep, [facility] [address] [id number] [place] [address] Aug, [facility] [address] [id number] [place] [address] Aug, [facility] [address] [id number] [place] [address] Aug, [facility] [address] [id number] [place] [address] Jun, [facility] [place] [facility] [address] [id number] [place] [address] Jun, [facility] [place] [facility] [address] [id number] [place] [address] Jun, [facility] [place] [facility] [address] [id number] [place] [address] Jun, [facility] [place] [facility] [address] [id number] [place] [address] Mar, [facility] [place] [facility] [address] [id number] [place] [address] Jan, [facility] [place] [facility] [address] [id number] [place] [address] December, IMMUNIZATIONS No Known Immunizations SOCIAL HISTORY Never Assessed REASON FOR VISIT controlled 10/31 PLAN OF CARE VITAL SIGNS MEDICATIONS Medication Instructions Dosage Frequency Start Date End Date Duration Status Oxycodone-Acetaminophen 5-325 MG Orally 2 times a day 1 tablet as needed 12h Oct, 28 days Active RESULTS No Results PROCEDURES No Known [...]
--- OUTSIDE RECORDS SUMMARY | 2019-03-05 10:42 | XMS REPORT ---
Author Author Migration, Doctor Organization [facility] Address Unknown Phone Unavailable Care Team Providers Care Head Teller Name Role Phone Migration, Doctor Unavailable Unavailable PROBLEMS Type Condition ICD9-CM Code [id number] Code Onset Dates Condition Status SNOMED Code Problem Controlled restless leg syndrome G25.81 Active 98525453 Problem GERD (gastroesophageal reflux disease) K21.9 Active 471924002 Problem Mild single current episode of major depressive disorder F32.0 Active 92012788 Problem Recurrent major depressive disorder, in full remission F33.42 Active 09580552 Problem Benign essential HTN I10 Active 2430395 Problem Low back pain M54.5 Active 934079496 Problem Morbid (severe) obesity due to excess calories E66.01 Active 685099504 Problem OAB (overactive bladder) N32.81 Active 121074777 Problem Other chronic pain G89.29 Active 37220052 Problem Type 2 diabetes mellitus without complication, without long-term current use of insulin E11.9 Active 205274998 ALLERGIES No Information ENCOUNTERS Encounter Location Date Diagnosis [place] [id number] [place] [address] Nov, Mild single current episode of major depressive disorder F32.0 [place] [id number] [place] [address] Nov, Degenerative arthritis of knee M17.9 [facility] [id number] [place] [address] Oct, Type 2 diabetes mellitus without complication, without long-term current use of insulin E11.9 ; Low back pain M54.5 ; Other chronic pain G89.29 ; Recurrent major depressive disorder, in full remission F33.42 and Benign essential HTN I10 [place] [id number] [place] [address] Oct, Degenerative arthritis of knee M17.9 [place] [address] [address] Sep, Degenerative arthritis of knee M17.9 [place] [id number] [place] [address] Sep, [facility] [id number] [place] [address] Aug, Degenerative arthritis of knee M17.9 [place] [id number] [place] [address] Aug, [facility] [id number] [place] [address] Jul, Dysuria R30.0 ; Acute cystitis without hematuria N30.00 ; Vaginal odor N89.8 and BMI 40.0-44.9, adult Z68.41 [place] [id number] [place] [address] Jul, [place] [id number] [place] [address] Jul, Degenerative arthritis of knee M17.9 [place] [id number] [place] [address] Jun, Degenerative arthritis of knee M17.9 [place] [id number] [place] [address] Jun, Degenerative arthritis of knee M17.9 [place] [id number] [place] [address] Jun, Benign essential HTN I10 ; Type 2 diabetes mellitus without complication, without long-term current use of insulin E11.9 ; Acute cystitis without hematuria N30.00 ; Low back pain M54.5 ; Other chronic pain G89.29 and BMI 40.0- 44.9, adult Z68.41 [place] [address] [address] May, Neuroma of foot D36.13 and 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 [place] [id number] [place] [address] May, Degenerative arthritis of knee M17.9 [place] [id number] [place] [address] May, Encounter for immunization Z23 [place] [address] [address] Apr, [place] [id number] [place] [address] Apr, Degenerative arthritis of knee M17.9 [place] [id number] [place] [address] Mar, Degenerative arthritis of knee M17.9 [place] [id number] [place] [address] Mar, Type 2 diabetes mellitus with diabetic peripheral angiopathy without gangrene, without long-term current use of insulin E11.51 ; Benign essential HTN I10 ; Degenerative arthritis of knee M17.9 and Mild single current episode of major depressive disorder F32.0 [place] [id number] [place] [address] Feb, [place] [id number] [place] [address] Feb, Degenerative arthritis of knee M17.9 [place] [id number] [place] [address] Feb, [place] [id number] [place] [address] Jan, Degenerative arthritis of knee M17.9 [place] [id number] [place] [address] Jan, Herpes zoster without complication B02.9 and BMI 40.0-44.9, adult Z68.41 [place] [id number] [place] [address] December, Degenerative arthritis of knee M17.9 [place] [id number] [place] [address] Nov, Benign essential HTN I10 ; Type [...] Z68.41 and GERD (gastroesophageal reflux disease) K21.9 [place] [id number] [place] [address] Nov, [place] [id number] [place] [address] Oct, Degenerative arthritis of knee M17.9 [place] [id number] [place] [address] Oct, [place] [id number] [place] [address] Oct, Type 2 diabetes mellitus with diabetic peripheral angiopathy without gangrene, without long-term current use of insulin E11.51 and Controlled substance agreement signed Z79.899 [place] [id number] [place] [address] Oct, Degenerative arthritis of knee M17.9 [place] [id number] [place] [address] Sep, Type 2 diabetes mellitus with diabetic peripheral angiopathy without gangrene, without long-term current use of insulin E11.51 ; Benign essential HTN I10 ; BMI 40.0-44.9, adult Z68.41 ; Mild single current episode of major depressive disorder F32.0 ; OAB (overactive bladder) N32.81 ; Degenerative arthritis of knee M17.9 and GERD (gastroesophageal reflux disease) K21.9 [place] [address] [address] Aug, Joint pain and swelling due to Lyme disease A69.20 [place] [id number] [place] [address] Jun, [place] [id number] [place] [address] May, 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 ; Benign essential HTN I10 ; 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 ; Body mass index (BMI) of 40.0-44.9 in adult Z68.41 and Morbid (severe) obesity due to excess calories E66.01 [place] [id number] [place] [address] May, Encounter for immunization Z23 [place] [id number] [place] [address] May, 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 [place] [id number] [place] [address] Mar, Mild single current episode of major depressive disorder F32.0 [place] [address] [place] [address] Mar, Joint pain and swelling due to Lyme disease A69.20 [place] [id number] [place] [address] Feb, Izzy infection B37.9 [place] [address] [place] [address] Jan, Insect bite (nonvenomous) of abdominal wall, initial encounter S30.861A and Joint pain and swelling due to Lyme disease A69.20 [place] [address] [place] [address] Jan, [place] [id number] [place] [address] 16 Sep, 2016 Mild single current episode of major depressive disorder F32.0 and 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220 and Mild single current episode of major depressive disorder F32.0 [place] [id number] [place] [address] Aug, [place] [id number] [place] [address] May, [place] [id number] [place] [address] May, Encounter for immunization Z23 [place] [id number] [place] [address] Apr, [place] [id number] [place] [address] Apr, [place] [id number] [place] [address] Apr, SAMANTHA (secretory otitis media), right H65.91 ; 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 ; Controlled restless leg syndrome G25.81 ; Edema extremities R60.0 ; SI (stress incontinence), female N39.3 ; Benign essential HTN I10 ; Degenerative arthritis of knee M17.9 and Major depressive disorder with single episode, remission status unspecified F32.9 [facility] [address] [address] Apr, OME (otitis media with effusion), right H65.91 [facility] [address] [address] Mar, [facility] [id number] [place] [address] Mar, 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 ; Controlled restless leg syndrome G25.81 ; SI (stress incontinence), female N39.3 ; Benign essential HTN I10 ; GERD (gastroesophageal reflux disease) K21.9 ; Knee pain M25.569 and Major depressive disorder with single episode, remission status unspecified F32.9 [place] [address] [place] [address] Mar, [place] [id number] [place] [address] Mar, [place] [id number] [place] [address] Jan, Pre-op exam Z01.818 [place] [address] [place] [address] Oct, Urinary tract infection N39.0 ; Benign essential HTN I10 ; Controlled restless leg syndrome G25.81 ; Edema extremities R60.0 ; Degenerative arthritis of knee M17.9 and GERD (gastroesophageal reflux disease) K21.9 [place] [address] [place] [address] Oct, Izzy albicans infection B37.9 [place] [id number] [place] [address] Sep, [place] [address] [place] [address] Sep, UTI (urinary tract infection) N39.0 ; Benign essential HTN I10 ; 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 ; Controlled restless leg syndrome G25.81 ; Edema extremities R60.0 ; SI (stress incontinence), female N39.3 and 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 [place] [id number] [place] [address] 12 Sep, 2015 UTI (urinary tract infection) N39.0 [place] [id number] [place] [address] 11 Aug, 2015 Pre-op evaluation Z01.818 [place] [id number] [place] [address] Aug, [place] [id number] [place] [address] Aug, [place] [address] [address] 14 Jul, 2015 Right hip pain M25.551 ; 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 and Knee pain M25.569 [place] [id number] [place] [address] Jul, [place] [id number] [place] [address] Jun, Knee pain M25.569 ; 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 and Degenerative arthritis of knee M17.9 [place] [id number] [place] [address] 16 Jun, 2015 [place] [id number] [place] [address] 30 Apr, 2015 Diabetes mellitus 250.00 ; Influenza vaccine administered V04.81 ; Incontinence 788.30 ; Restless legs syndrome 333.94 ; Sciatica 724.3 ; Essential hypertension, benign 401.1 ; Edema 782.3 and Depression (emotion) [id number] [place] [address] Mar, Pain in joint, lower leg 719.46 and Sciatica 724.3 [facility] [id number] [address] Mar, [facility] [id number] [address] Feb, Pain in joint, site unspecified 719.40 ; Other urinary incontinence 788.39 ; Pain in joint, lower leg 719.46 ; Edema 782.3 ; Sciatica 724.3 ; Essential hypertension, benign 401.1 ; Depression 311 ; Diabetes mellitus 250.00 ; Incontinence 788.30 and Restless legs syndrome 333.94 [facility] [id number] [place] [address] Feb, [facility] [id number] [place] [address] Nov, [facility] [id number] [place] [address] Nov, [facility] [id number] [place] [address] Oct, [facility] [id number] [place] [address] Oct, [facility] [address] [address] Aug, [facility] [address] [place] [address] Aug, [facility] [address] [address] Aug, [facility] [id number] [place] [address] Aug, [facility] [address] [address] Aug, [facility] [id number] [place] [address] Aug, [facility] [place] [facility] [address] [id number] [place] [address] Jun, [facility] [place] [facility] [address] [id number] [place] [address] Jun, [facility] [place] [facility] [address] [id number] [place] [address] Jun, [facility] [place] [facility] [address] [id number] [place] [address] Jun, [facility] [place] [facility] [address] [id number] [place] [address] Jun, [facility] [place] [facility] [address] [id number] [place] [address] Jun, [facility] [place] [facility] [address] [id number] [place] [address] May, [facility] [place] [facility] [address] [id number] [place] [address] May, [facility] [place] [facility] [address] [id number] [place] [address] May, [facility] [place] [facility] [address] [id number] [place] [address] May, [facility] [place] [facility] [address] [id number] [place] [address] Apr, [facility] [place] [facility] [address] [id number] [place] [address] 22 Apr, 2014 [facility] [place] [facility] [address] [id number] [place] [address] 17 Apr, 2014 [facility] [place] [facility] [address] [id number] [place] [address] 17 Apr, 2014 [facility] [place] [facility] [address] [id number] [place] [address] Mar, [facility] [place] [facility] [address] [id number] [place] [address] Mar, [facility] [place] [facility] [address] [id number] [place] [address] Mar, [facility] [place] [facility] [address] [id number] [place] [address] Mar, [facility] [place] [facility] [address] [id number] [place] [address] Mar, [facility] [place] [facility] [address] [id number] [place] [address] Mar, [facility] [place] [facility] [address] [id number] [place] [address] Feb, [facility] [place] [facility] [address] [id number] [place] [address] Feb, [facility] [place] [facility] [address] [id number] [place] [address] Jan, [facility] [place] [facility] [address] [id number] [place] [address] Jan, [facility] [place] [facility] [address] [id number] [place] [address] Jan, [facility] [place] [facility] [address] [id number] [place] [address] Jan, [facility] [place] [facility] [address] [id number] [place] [address] December, [facility] [place] [facility] [address] [id number] [place] [address] December, [facility] [place] [facility] [address] [id number] [place] [address] December, [facility] [place] [facility] [address] [id number] [place] [address] December, [facility] [place] [facility] [address] [id number] [place] [address] December, [facility] [place] [facility] [address] [id number] [place] [address] December, [facility] [place] [facility] [address] [id number] [place] [address] December, [facility] [place] [facility] [address] [id number] [place] [address] December, [facility] [place] [facility] [address] [id number] [place] [address] Nov, [facility] [place] [facility] [address] [id number] [place] [address] Nov, [facility] [place] [facility] [address] [id number] [place] [address] Nov, [facility] [place] [facility] [address] [id number] [place] [address] Nov, [facility] [place] [facility] [address] [id number] [place] [address] Oct, [facility] [place] [facility] [address] [id number] [place] [address] Oct, [facility] [place] [facility] [address] [id number] [place] [address] Oct, [facility] [place] [facility] [address] [id number] [place] [address] Oct, [facility] [place] [facility] [address] [id number] [place] [address] Oct, [facility] [place] [facility] [address] [id number] [place] [address] Oct, [facility] [place] [facility] [address] [id number] [place] [address] Oct, [facility] [place] [facility] [address] [id number] [place] [address] Oct, [facility] [place] [facility] [address] [id number] [place] [address] Sep, [facility] [place] [facility] [address] [id number] [place] [address] Sep, [facility] [place] [facility] [address] [id number] [place] [address] Sep, [facility] [place] [facility] [address] [id number] [place] [address] Sep, [facility] [place] [facility] [address] [id number] [place] [address] Sep, [facility] [place] [facility] [address] [id number] [place] [address] Aug, [facility] [place] [facility] [address] [id number] [place] [address] Aug, [facility] [place] [facility] [address] [id number] [place] [address] Jul, [facility] [place] [facility] [address] [id number] [place] [address] Jul, [facility] [place] [facility] [address] [id number] [place] [address] Jul, [facility] [place] [facility] [address] [facility] [id number] [place] [address] Jul, [facility] [place] [facility] [address] [id number] [place] [address] Jul, [facility] [place] [facility] [address] [id number] [place] [address] Jul, [facility] [place] [facility] [address] [id number] [place] [address] Jul, [facility] [place] [facility] [address] [id number] [place] [address] Jun, [facility] [place] [facility] [address] [id number] [place] [address] Jun, [facility] [place] [facility] [address] [id number] [place] [address] Jun, [facility] [place] [facility] [address] [id number] [address] Jun, [facility] [place] [facility] [address] [facility] [id number] [place] [address] Jun, [facility] [place] [facility] [address] [id number] [place] [address] Jun, [facility] [place] [facility] [address] [id number] [place] [address] Jun, [facility] [place] [facility] [address] [id number] [place] [address] Jun, [facility] [place] [facility] [address] [id number] [place] [address] Jun, [facility] [place] [facility] [address] [id number] [place] [address] Jun, [facility] [place] [facility] [address] [id number] [place] [address] Jun, [facility] [place] [facility] [address] [id number] [place] [address] Jun, [facility] [place] [facility] [address] [id number] [place] [address] Jun, [facility] [place] [facility] [address] [id number] [place] [address] May, [facility] [place] [facility] [address] [id number] [place] [address] May, [facility] [place] [facility] [address] [id number] [place] [address] May, [facility] [place] [facility] [address] [id number] [place] [address] May, [facility] [place] [facility] [address] [id number] [place] [address] 11 May, 2013 [facility] [place] [facility] [address] [id number] [place] [address] 11 May, 2013 [facility] [place] [facility] [address] [id number] [place] [address] May, [facility] [place] [facility] [address] [id number] [place] [address] May, [facility] [place] [facility] [address] [id number] [place] [address] May, [facility] [place] [facility] [address] [id number] [place] [address] 23 Apr, 2013 [facility] [place] [facility] [address] [id number] [place] [address] 21 Apr, 2013 [facility] [place] [facility] [address] [id number] [place] [address] Apr, [facility] [place] [facility] [address] [id number] [place] [address] Apr, [facility] [place] [facility] [address] [id number] [place] [address] 15 Mar, 2013 [facility] [place] [facility] [address] [id number] [place] [address] 14 Mar, 2013 [facility] [place] [facility] [address] [id number] [place] [address] Mar, [facility] [place] [facility] [address] [id number] [place] [address] Jan, [facility] [place] [facility] [address] [id number] [place] [address] Jan, [facility] [place] [facility] [address] [id number] [place] [address] 04 Jan, 2013 [facility] [place] [facility] [address] [id number] [place] [address] Jan, [facility] [place] [facility] [address] [id number] [place] [address] December, [facility] [address] [id number] [place] [address] Nov, [facility] [place] [facility] [address] [id number] [place] [address] Nov, [facility] [place] [facility] [address] [id number] [place] [address] Sep, [facility] [address] [id number] [place] [address] Sep, [facility] [place] [facility] [address] [id number] [place] [address] Sep, [facility] [address] [id number] [place] [address] Aug, [facility] [address] [id number] [place] [address] Aug, [facility] [place] [facility] [address] [id number] [place] [address] Aug, [facility] [address] [id number] [place] [address] Aug, [facility] [address] [id number] [place] [address] Aug, [facility] [place] [facility] [address] [id number] [address] 15 Aug, 2012 [facility] [place] [facility] [address] [id number] [place] [address] Aug, [facility] [place] [facility] [address] [id number] [place] [address] Jul, [facility] [place] [facility] [address] [id number] [place] [address] Jul, [facility] [place] [facility] [address] [id number] [address] Jun, [facility] [place] [facility] [address] [id number] [place] [address] Jun, [facility] [place] [facility] [address] [facility] [id number] [place] [address] May, [facility] [place] [facility] [address] [facility] [id number] [place] [address] May, [facility] [place] [facility] [address] [id number] [place] [address] May, [facility] [place] [facility] [address] [id number] [place] [address], [place] [address] May, [facility] [place] [facility] [address] [facility] [id number] [place] [address] Apr, [facility] [place] [facility] [id number] [place] [address], [place] [address] 24 Apr, 2012 [facility] [place] [facility] [address] [id number] [place] [address] 21 Apr, 2012 [facility] [place] [facility] [address] [id number] [place] [address] 20 Apr, 2012 [facility] [place] [facility] [address] [id number] [place] [address] 20 Apr, 2012 [facility] [place] [facility] [address] [facility] [id number] [place] [address] 19 Apr, 2012 [facility] [place] [facility] [address] [facility] [id number] [address] Apr, [facility] [place] [facility] [address] [id number] [place] [address] Mar, [facility] [place] [facility] [address] [facility] [id number] [place] [address] December, [facility] [place] [facility] [address] [id number] [address] December, [facility] [place] [facility] [id number] [address] December, [facility] [id number] [address] Sep, [facility] [id number] [address] Sep, [facility] [id number] [address] Aug, [facility] [address] [facility] [id number] [place] [address] Aug, [facility] [id number] [address] Aug, [facility] [id number] [address] Jun, [facility] [id number] [address] Jun, [facility] [id number] [address] Jun, [facility] [id number] [address] Jun, [facility] [address] [id number] [address] Mar, [facility] [address] [id number] [address] Jan, [facility] [address] [id number] [address] December, IMMUNIZATIONS No Known Immunizations SOCIAL HISTORY Never Assessed REAS[place] FOR VISIT [place] [place] VITAL SIGNS MEDICATIONS Unknown [...]
--- OUTSIDE RECORDS SUMMARY | 2019-03-05 10:42 | XMS REPORT ---
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 Name Role Phone Migration, Doctor Unavailable Unavailable PROBLEMS Type Condition ICD9-CM Code KCL16-EA Code Onset Dates Condition Status SNOMED Code Problem Controlled restless leg syndrome G25.81 Active 26583718 Problem GERD (gastroesophageal reflux disease) K21.9 Active 557128919 Problem Mild single current episode of major depressive disorder F32.0 Active 16975741 Problem Recurrent major depressive disorder, in full remission F33.42 Active 22679195 Problem Benign essential HTN I10 Active 9129713 Problem Low back pain M54.5 Active 800930992 Problem Morbid (severe) obesity due to excess calories E66.01 Active 956968910 Problem OAB (overactive bladder) N32.81 Active 970855415 Problem Other chronic pain G89.29 Active 43661578 Problem Type 2 diabetes mellitus without complication, without long-term current use of insulin E11.9 Active [id number] ALLERGIES No Information ENCOUNTERS Encounter Location Date Diagnosis [place] [id number] [place] [address] Nov, Degenerative arthritis of knee M17.9 [place] [id number] [place] [address] Oct, Type 2 diabetes mellitus without complication, without long-term current use of insulin E11.9 ; Low back pain M54.5 ; Other chronic pain G89.29 ; Recurrent major depressive disorder, in full remission F33.42 and Benign essential HTN I10 [place] [address] [place] [id number] [place] [address] Oct, Degenerative arthritis of knee M17.9 [place] [id number] [place] [address] Sep, Degenerative arthritis of knee M17.9 [place] [address] [place] [id number] [place] [address] Sep, [facility] [address] [address] Aug, Degenerative arthritis of knee M17.9 [facility] [address] [place] [id number] [place] [address] Aug, [facility] [address] [address] Jul, Dysuria R30.0 ; Acute cystitis without hematuria N30.00 ; Vaginal odor N89.8 and BMI 40.0-44.9, adult Z68.41 [place] [address] [address] Jul, [place] [address] [address] Jul, Degenerative arthritis of knee M17.9 [place] [address] [place] [id number] [place] [address] Jun, Degenerative arthritis of knee M17.9 [place] [address] [address] Jun, Degenerative arthritis of knee M17.9 [place] [address] [place] [id number] [place] [address] Jun, Benign essential HTN I10 ; Type 2 diabetes mellitus without complication, without long-term current use of insulin E11.9 ; Acute cystitis without hematuria N30.00 ; Low back pain M54.5 ; Other chronic pain G89.29 and BMI 40.0- 44.9, adult Z68.41 [place] [address] [address] May, Neuroma of foot D36.13 and 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 [place] [address] [address] May, Degenerative arthritis of knee M17.9 [facility] [address] [address] May, Encounter for immunization Z23 [facility] [address] [place] [id number] [place] [address] Apr, [facility] [address] [place] [id number] [place] [address] Apr, Degenerative arthritis of knee M17.9 [facility] [address] [place] [id number] [place] [address] Mar, Degenerative arthritis of knee M17.9 [place] [address] [place] [id number] [place] [address] Mar, Type 2 diabetes mellitus with diabetic peripheral angiopathy without gangrene, without long-term current use of insulin E11.51 ; Benign essential HTN I10 ; Degenerative arthritis of knee M17.9 and Mild single current episode of major depressive disorder F32.0 [place] [address] [place] [id number] [place] [address] Feb, [place] [address] [place] [id number] [place] [address] Feb, Degenerative arthritis of knee M17.9 [place] [address] [place] [id number] [place] [address] Feb, [place] [address] [place] [id number] [place] [address] Jan, Degenerative arthritis of knee M17.9 [place] [address] [place] [id number] [place] [address] Jan, Herpes zoster without complication B02.9 and BMI 40.0-44.9, adult Z68.41 [place] [address] [place] [id number] [place] [address] December, Degenerative arthritis of knee M17.9 [place] [address] [place] [id number] [place] [address] Nov, Benign essential HTN I10 ; Type [...] Z68.41 and GERD (gastroesophageal reflux disease) K21.9 [place] [address] [place] [id number] [place] [address] Nov, [place] [address] [address] Oct, Degenerative arthritis of knee M17.9 [place] [address] [address] Oct, [place] [address] [address] Oct, Type 2 diabetes mellitus with diabetic peripheral angiopathy without gangrene, without long-term current use of insulin E11.51 and Controlled substance agreement signed Z79.899 [place] [address] [place] [id number] [place] [address] Oct, Degenerative arthritis of knee M17.9 [place] [address] [place] [id number] [place] [address] Sep, Type 2 diabetes mellitus with diabetic peripheral angiopathy without gangrene, without long-term current use of insulin E11.51 ; Benign essential HTN I10 ; BMI 40.0-44.9, adult Z68.41 ; Mild single current episode of major depressive disorder F32.0 ; OAB (overactive bladder) N32.81 ; Degenerative arthritis of knee M17.9 and GERD (gastroesophageal reflux disease) K21.9 [place] [address] [place] [id number] [place] [address] Aug, Joint pain and swelling due to Lyme disease A69.20 [place] [address] [place] [id number] [place] [address] Jun, [place] [address] [place] [id number] [place] [address] May, 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 ; Benign essential HTN I10 ; 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 ; Body mass index (BMI) of 40.0-44.9 in adult Z68.41 and Morbid (severe) obesity due to excess calories E66.01 [place] [address] [place] [id number] [place] [address] May, Encounter for immunization Z23 [place] [address] [place] [id number] [place] [address] May, 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 [place] [address] [place] [id number] [place] [address] Mar, Mild single current episode of major depressive disorder F32.0 [place] [address] [place] [id number] [place] [address] Mar, Joint pain and swelling due to Lyme disease A69.20 [place] [address] [place] [id number] [place] [address] Feb, Izzy infection B37.9 [place] [address] [place] [id number] [place] [address] Jan, Insect bite (nonvenomous) of abdominal wall, initial encounter S30.861A and Joint pain and swelling due to Lyme disease A69.20 [place] [address] [place] [id number] [place] [address] Jan, [place] [address] [place] [id number] [place] [address] Sep, Mild single current episode of major depressive disorder F32.0 and 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 [facility] [address] [place] [address] 13 Sep, 2016 Controlled restless leg syndrome G25.81 and Cramp of both lower extremities R25.2 [facility] [address] [id number] [address] Aug, 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 ; Controlled restless leg syndrome G25.81 ; SI (stress incontinence), female N39.3 ; Benign essential HTN I10 ; 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 ; GERD (gastroesophageal reflux disease) K21.9 ; Screening cholesterol level Z13.220 and Mild single current episode of major depressive disorder F32.0 [place] [address] [place] [id number] [place] [address] Aug, [place] [address] [place] [id number] [place] [address] May, [place] [address] [place] [id number] [place] [address] May, Encounter for immunization Z23 [place] [address] [address] Apr, [place] [address] [place] [id number] [place] [address] Apr, [place] [address] [place] [id number] [place] [address] 27 Apr, 2016 SAMANTHA (secretory otitis media), right H65.91 ; 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 ; Controlled restless leg syndrome G25.81 ; Edema extremities R60.0 ; SI (stress incontinence), female N39.3 ; Benign essential HTN I10 ; Degenerative arthritis of knee M17.9 and Major depressive disorder with single episode, remission status unspecified F32.9 [facility] [address] [place] [id number] [place] [address] 19 Apr, 2016 OME (otitis media with effusion), right H65.91 [facility] [address] [address] Mar, [place] [address] [place] [id number] [place] [address] Mar, 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 ; Controlled restless leg syndrome G25.81 ; SI (stress incontinence), female N39.3 ; Benign essential HTN I10 ; GERD (gastroesophageal reflux disease) K21.9 ; Knee pain M25.569 and Major depressive disorder with single episode, remission status unspecified F32.9 [place] [id number] [place] [address] Mar, [place] [address] [place] [id number] [place] [address] Mar, [place] [address] [place] [id number] [place] [address] Jan, Pre-op exam Z01.818 [place] [address] [address] Oct, Urinary tract infection N39.0 ; Benign essential HTN I10 ; Controlled restless leg syndrome G25.81 ; Edema extremities R60.0 ; Degenerative arthritis of knee M17.9 and GERD (gastroesophageal reflux disease) K21.9 [place] [address] [place] [address] Oct, Izzy albicans infection B37.9 [place] [address] [address] Sep, [place] [address] [place] [id number] [place] [address] Sep, UTI (urinary tract infection) N39.0 ; Benign essential HTN I10 ; 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 ; Controlled restless leg syndrome G25.81 ; Edema extremities R60.0 ; SI (stress incontinence), female N39.3 and 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 [place] [address] [place] [id number] [place] [address] 12 Sep, 2015 UTI (urinary tract infection) N39.0 [place] [address] [place] [id number] [place] [address] 11 Aug, 2015 Pre-op evaluation Z01.818 [place] [address] [address] Aug, [place] [address] [place] [id number] [place] [address] 08 Aug, 2015 [place] [address] [address] 14 Jul, 2015 Right hip pain M25.551 ; 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 and Knee pain M25.569 [place] [id number] [place] [address] Jul, [place] [address] [place] [id number] [place] [address] Jun, Knee pain M25.569 ; 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 and Degenerative arthritis of knee M17.9 [place] [id number] [place] [address] Jun, [place] [address] [place] [id number] [place] [address] 30 Apr, 2015 Diabetes mellitus 250.00 ; Influenza vaccine administered V04.81 ; Incontinence 788.30 ; Restless legs syndrome 333.94 ; Sciatica 724.3 ; Essential hypertension, benign 401.1 ; Edema 782.3 and Depression (emotion) 311 [place] [address] [place] [id number] [place] [address] 24 Mar, 2015 Pain in joint, lower leg 719.46 and Sciatica 724.[address] [place] [address] Mar, [facility] [address] [id number] [address] Feb, Pain in joint, site unspecified 719.40 ; Other urinary incontinence 788.39 ; Pain in joint, lower leg 719.46 ; Edema 782.3 ; Sciatica 724.3 ; Essential hypertension, benign 401.1 ; Depression 311 ; Diabetes mellitus 250.00 ; Incontinence 788.30 and Restless legs syndrome 333.94 [facility] [address] [id number] [address] Feb, [facility] [address] [place] [id number] [place] [address] Nov, [facility] [address] [place] [id number] [place] [address] Nov, [facility] [address] [place] [id number] [place] [address] Oct, [facility] [id number] [place] [address] Oct, [facility] [address] [place] [id number] [place] [address] Aug, [facility] [address] [address] Aug, [facility] [address], [place] [address] Aug, [facility] [address] [address] Aug, [facility] [address] [place] [id number] [place] [address] Aug, [facility] [address] [address] Aug, [facility] [id number] [place] [address] Jun, [facility] [place] [facility] [address] [id number] [place] [address] Jun, [facility] [place] [facility] [address] [id number] [place] [address] Jun, [facility] [place] [facility] [address] [id number] [place] [address] Jun, [facility] [place] [facility] [address] [id number] [place] [address] Jun, [facility] [place] [facility] [address] [id number] [place] [address] Jun, [facility] [place] [facility] [address] [id number] [place] [address] May, [facility] [place] [facility] [address] [id number] [place] [address] May, [facility] [place] [facility] [address] [id number] [place] [address] May, [facility] [place] [facility] [address] [id number] [place] [address] May, [facility] [place] [facility] [address] [id number] [place] [address] Apr, [facility] [place] [facility] [address] [id number] [place] [address] Apr, [facility] [place] [facility] [address] [id number] [address] Apr, [facility] [place] [facility] [address] [id number] [place] [address] Apr, [facility] [place] [facility] [address] [id number] [place] [address] Mar, [facility] [place] [facility] [address] [id number] [place] [address] Mar, [facility] [place] [facility] [address] [id number] [place] [address] Mar, [facility] [place] [facility] [address] [id number] [place] [address] Mar, [facility] [place] [facility] [address] [id number] [place] [address] Mar, [facility] [place] [facility] [address] [id number] [place] [address] Mar, [facility] [place] [facility] [address] [id number] [place] [address] Feb, [facility] [place] [facility] [address] [id number] [place] [address] Feb, [facility] [place] [facility] [address] [id number] [place] [address] Jan, [facility] [place] [facility] [address] [id number] [place] [address] Jan, [facility] [place] [facility] [address] [id number] [place] [address] Jan, [facility] [place] [facility] [address] [id number] [place] [address] Jan, [facility] [place] [facility] [address] [id number] [place] [address] December, [facility] [place] [facility] [address] [id number] [place] [address] December, [facility] [place] [facility] [address] [id number] [place] [address] December, [facility] [place] [facility] [address] [id number] [place] [address] December, [facility] [place] [facility] [address] [id number] [place] [address] December, [facility] [place] [facility] [address] [id number] [place] [address] December, [facility] [place] [facility] [address] [id number] [place] [address] December, [facility] [place] [facility] [address] [id number] [place] [address] December, [facility] [place] [facility] [address] [id number] [place] [address] Nov, [facility] [place] [facility] [address] [id number] [place] [address] Nov, [facility] [place] [facility] [address] [id number] [place] [address] Nov, [facility] [place] [facility] [address] [id number] [place] [address] Nov, [facility] [place] [facility] [address] [id number] [place] [address] Oct, [facility] [place] [facility] [address] [id number] [place] [address] Oct, [facility] [place] [facility] [address] [id number] [place] [address] Oct, [facility] [place] [facility] [address] [id number] [place] [address] Oct, [facility] [place] [facility] [address] [id number] [place] [address] Oct, [facility] [place] [facility] [address] [id number] [place] [address] Oct, [facility] [place] [facility] [address] [id number] [place] [address] Oct, [facility] [place] [facility] [address] [id number] [place] [address] Oct, [facility] [place] [facility] [address] [id number] [place] [address] Sep, [facility] [place] [facility] [address] [id number] [place] [address] Sep, [facility] [address] [id number] [place] [address] Sep, [facility] [place] [facility] [address] [id number] [place] [address] Sep, [facility] [place] [facility] [address] [facility] [id number] [place] [address] Sep, [facility] [place] [facility] [address] [id number] [place] [address] Aug, [facility] [address] [id number] [place] [address] Aug, [facility] [place] [facility] [address] [id number] [place] [address] Jul, [facility] [address] [id number] [place] [address] Jul, [facility] [place] [facility] [address] [id number] [place] [address] Jul, [facility] [address] [facility] [id number] [place] [address] Jul, [facility] [place] [facility] [address] [facility] [id number] [place] [address] Jul, [facility] [place] [facility] [address] [facility] [id number] [place] [address] Jul, [facility] [place] [facility] [address] [id number] [place] [address] Jul, [facility] [place] [facility] [address] [id number] [place] [address] Jun, [facility] [place] [facility] [address] [id number] [place] [address] Jun, [facility] [place] [facility] [address] [facility] [id number] [place] [address] Jun, [facility] [place] [facility] [address] [id number] [place] [address] Jun, [facility] [place] [facility] [address] [id number] [place] [address] Jun, [facility] [place] [facility] [address] [id number] [place] [address] Jun, [facility] [place] [facility] [address] [id number] [place] [address] Jun, [facility] [place] [facility] [address] [id number] [place] [address] Jun, [facility] [place] [facility] [address] [id number] [place] [address] Jun, [facility] [place] [facility] [address] [id number] [place] [address] Jun, [facility] [place] [facility] [address] [id number] [place] [address] Jun, [facility] [place] [facility] [address] [id number] [place] [address] Jun, [facility] [place] [facility] [address] [id number] [place] [address] Jun, [facility] [place] [facility] [address] [id number] [place] [address] May, [facility] [place] [facility] [address] [id number] [place] [address] May, [facility] [place] [facility] [address] [id number] [place] [address] May, [facility] [place] [facility] [address] [id number] [place] [address] May, [facility] [place] [facility] [address] [id number] [place] [address] May, [facility] [place] [facility] [address] [id number] [place] [address] May, [facility] [place] [facility] [address] [id number] [place] [address] 10 May, 2013 [facility] [place] [facility] [address] [id number] [place] [address] 10 May, 2013 [facility] [place] [facility] [address] [id number] [place] [address] May, [facility] [place] [facility] [address] [id number] [place] [address] 23 Apr, 2013 [facility] [place] [facility] [address] [id number] [place] [address] 21 Apr, 2013 [facility] [place] [facility] [address] [id number] [place] [address] Apr, [facility] [place] [facility] [address] [id number] [place] [address] Apr, [facility] [place] [facility] [address] [id number], [place] [address] 15 Mar, 2013 [facility] [place] [facility] [address] [id number], [place] [address] 14 Mar, 2013 [facility] [place] [facility] [address] [id number], [place] [address] Mar, [facility] [place] [facility] [address] [id number], [place] [address] Jan, [facility] [place] [facility] [address] [id number], [place] [address] Jan, [facility] [place] [facility] [address] [id number], [place] [address] Jan, [facility] [place] [facility] [address] [id number], [place] [address] Jan, [facility] [place] [facility] [address] [id number], [place] [address] December, [facility] [place] [facility] [address] [id number] [place] [address] 11 Nov, 2012 [facility] [address] [id number] [place] [address] 10 Nov, 2012 [facility] [address] [id number] [place] [address] 19 Sep, 2012 [facility] [address] [id number] [place] [address] 13 Sep, 2012 [facility] [address] [id number] [place] [address] Sep, [facility] [address] [id number] [place] [address] 29 Aug, 2012 [facility] [address] [id number] [place] [address] 18 Aug, 2012 [facility] [address] [id number] [place] [address] 17 Aug, 2012 [facility] [address] [id number] [place] [address] 16 Aug, 2012 [facility] [address] [id number] [place] [address] 16 Aug, 2012 [facility] [facility] [address] [id number] [place] [address] 15 Aug, 2012 [facility] [address] [id number] [place] [address] Aug, [facility] [address] [id number] [place] [address] Jul, [facility] [address] [id number] [place] [address] Jul, [facility] [address] [id number] [place] [address] Jun, [facility] [address] [id number] [place] [address] Jun, [facility] [place] [facility] [address] [id number] [place] [address] May, [facility] [place] [facility] [address] [id number] [place] [address] May, [facility] [place] [facility] [address] [id number] [place] [address] May, [facility] [place] [facility] [address] [id number] [place] [address] May, [facility] [place] [facility] [address] [id number] [place] [address] 26 Apr, 2012 [facility] [place] [facility] [address] [id number] [place] [address] 24 Apr, 2012 [facility] [place] [facility] [address] [id number] [place] [address] 21 Apr, 2012 [facility] [place] [facility] [address] [id number] [place] [address] 20 Apr, 2012 [facility] [place] [facility] [address] [id number] [place] [address] 20 Apr, 2012 [facility] [place] [facility] [address] [id number], [place] [address] 19 Apr, 2012 [facility] [place] [facility] [address] [id number], [place] [address] Apr, [facility] [place] [facility] [address] [id number], [place] [address] Mar, [facility] [place] [facility] [address] [id number] [place] [address] December, [facility] [place] [facility] [address] [id number], [place] [address] December, [facility] [place] [facility] [address] [id number], [place] [address] December, [facility] [place] [facility] [address] [id number], [place] [address] 10 Sep, 2011 [facility] [address] [id number] [address] Sep, [facility] [address] [id number], [place] [address] Aug, [facility] [id number] [address] Aug, [facility] [id number], [place] [address] Aug, [facility] [id number], [place] [address] Jun, [facility] [id number], [place] [address] Jun, [facility] [id number], [place] [address] Jun, [facility] [id number], [place] [address] Jun, [facility] [id number], [place] [address] Mar, [facility] [address] [id number], [place] [address] Jan, [facility] [address] [id number], [place] [address] December, IMMUNIZATIONS No Known Immunizations SOCIAL HISTORY Never Assessed REASON FOR VISIT EMR-[facility] [place] PLAN OF CARE VITAL SIGNS MEDICATIONS Unknown [...]
--- OUTSIDE RECORDS SUMMARY | 2019-03-05 10:43 | XMS REPORT ---
Author Author Migration, Doctor Organization [facility] Address Unknown Phone Unavailable Care Team Providers Care Lacer And Tier Name Role Phone Migration, Doctor Unavailable Unavailable PROBLEMS Type Condition ICD9-CM Code YDS86-AP Code Onset Dates Condition Status SNOMED Code Problem Controlled restless leg syndrome G25.81 Active 96136603 Problem GERD (gastroesophageal reflux disease) K21.9 Active 677428331 Problem Mild single current episode of major depressive disorder F32.0 Active 44815725 Problem Recurrent major depressive disorder, in full remission F33.42 Active 84166121 Problem Benign essential HTN I10 Active 3639966 Problem Low back pain M54.5 Active 742149498 Problem Morbid (severe) obesity due to excess calories E66.01 Active 882989060 Problem OAB (overactive bladder) N32.81 Active 580266157 Problem Other chronic pain G89.29 Active 26527688 Problem Type 2 diabetes mellitus without complication, without long-term current use of insulin E11.9 Active 186718547 ALLERGIES No Information ENCOUNTERS Encounter Location Date Diagnosis [place] [id number] [place] [address] Nov, Degenerative arthritis of knee M17.9 [place] [id number] [place] [address] Oct, Type 2 diabetes mellitus without complication, without long-term current use of insulin E11.9 ; Low back pain M54.5 ; Other chronic pain G89.29 ; Recurrent major depressive disorder, in full remission F33.42 and Benign essential HTN I10 [place] [address] [place] [id number] [place] [address] Oct, Degenerative arthritis of knee M17.9 [place] [id number] [place] [address] Sep, Degenerative arthritis of knee M17.9 [place] [address] [place] [id number] [place] [address] Sep, [facility] [address] [address] Aug, Degenerative arthritis of knee M17.9 [facility] [address] [place] [id number] [place] [address] Aug, [facility] [address] [address] Jul, Dysuria R30.0 ; Acute cystitis without hematuria N30.00 ; Vaginal odor N89.8 and BMI 40.0-44.9, adult Z68.41 [place] [address] [address] Jul, [place] [address] [address] Jul, Degenerative arthritis of knee M17.9 [place] [address] [place] [id number] [place] [address] Jun, Degenerative arthritis of knee M17.9 [place] [address] [address] Jun, Degenerative arthritis of knee M17.9 [place] [address] [place] [id number] [place] [address] Jun, Benign essential HTN I10 ; Type 2 diabetes mellitus without complication, without long-term current use of insulin E11.9 ; Acute cystitis without hematuria N30.00 ; Low back pain M54.5 ; Other chronic pain G89.29 and BMI 40.0- 44.9, adult Z68.41 [place] [address] [address] May, Neuroma of foot D36.13 and 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 [place] [address] [address] May, Degenerative arthritis of knee M17.9 [facility] [address] [address] May, Encounter for immunization Z23 [facility] [address] [place] [id number] [place] [address] Apr, [facility] [address] [place] [id number] [place] [address] Apr, Degenerative arthritis of knee M17.9 [facility] [address] [place] [id number] [place] [address] Mar, Degenerative arthritis of knee M17.9 [place] [address] [place] [id number] [place] [address] Mar, Type 2 diabetes mellitus with diabetic peripheral angiopathy without gangrene, without long-term current use of insulin E11.51 ; Benign essential HTN I10 ; Degenerative arthritis of knee M17.9 and Mild single current episode of major depressive disorder F32.0 [place] [address] [place] [id number] [place] [address] Feb, [place] [address] [place] [id number] [place] [address] Feb, Degenerative arthritis of knee M17.9 [place] [address] [place] [id number] [place] [address] Feb, [place] [address] [place] [id number] [place] [address] Jan, Degenerative arthritis of knee M17.9 [place] [address] [place] [id number] [place] [address] Jan, Herpes zoster without complication B02.9 and BMI 40.0-44.9, adult Z68.41 [place] [address] [place] [id number] [place] [address] December, Degenerative arthritis of knee M17.9 [place] [address] [place] [id number] [place] [address] Nov, Benign essential HTN I10 ; Type [...] Z68.41 and GERD (gastroesophageal reflux disease) K21.9 [place] [address] [place] [id number] [place] [address] Nov, [place] [address] [address] Oct, Degenerative arthritis of knee M17.9 [place] [address] [address] Oct, [place] [address] [address] Oct, Type 2 diabetes mellitus with diabetic peripheral angiopathy without gangrene, without long-term current use of insulin E11.51 and Controlled substance agreement signed Z79.899 [place] [address] [place] [id number] [place] [address] Oct, Degenerative arthritis of knee M17.9 [place] [address] [place] [id number] [place] [address] Sep, Type 2 diabetes mellitus with diabetic peripheral angiopathy without gangrene, without long-term current use of insulin E11.51 ; Benign essential HTN I10 ; BMI 40.0-44.9, adult Z68.41 ; Mild single current episode of major depressive disorder F32.0 ; OAB (overactive bladder) N32.81 ; Degenerative arthritis of knee M17.9 and GERD (gastroesophageal reflux disease) K21.9 [place] [address] [place] [id number] [place] [address] Aug, Joint pain and swelling due to Lyme disease A69.20 [place] [address] [place] [id number] [place] [address] Jun, [place] [address] [place] [id number] [place] [address] May, 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 ; Benign essential HTN I10 ; 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 ; Body mass index (BMI) of 40.0-44.9 in adult Z68.41 and Morbid (severe) obesity due to excess calories E66.01 [place] [address] [place] [id number] [place] [address] May, Encounter for immunization Z23 [place] [address] [place] [id number] [place] [address] May, 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 [place] [address] [place] [id number] [place] [address] Mar, Mild single current episode of major depressive disorder F32.0 [place] [address] [place] [id number] [place] [address] Mar, Joint pain and swelling due to Lyme disease A69.20 [place] [address] [place] [id number] [place] [address] Feb, Izzy infection B37.9 [place] [address] [place] [id number] [place] [address] Jan, Insect bite (nonvenomous) of abdominal wall, initial encounter S30.861A and Joint pain and swelling due to Lyme disease A69.20 [place] [address] [place] [id number] [place] [address] Jan, [place] [address] [place] [id number] [place] [address] Sep, Mild single current episode of major depressive disorder F32.0 and 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 [facility] [address] [place] [address] 13 Sep, 2016 Controlled restless leg syndrome G25.81 and Cramp of both lower extremities R25.2 [facility] [address] [place] [id number] [address] Aug, 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 ; Controlled restless leg syndrome G25.81 ; SI (stress incontinence), female N39.3 ; Benign essential HTN I10 ; 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 ; GERD (gastroesophageal reflux disease) K21.9 ; Screening cholesterol level Z13.220 and Mild single current episode of major depressive disorder F32.0 [place] [address] [place] [id number] [place] [address] Aug, [place] [address] [place] [id number] [place] [address] May, [place] [address] [place] [id number] [place] [address] May, Encounter for immunization Z23 [place] [address] [address] Apr, [place] [address] [place] [id number] [place] [address] Apr, [place] [address] [place] [id number] [place] [address] 27 Apr, 2016 SAMANTHA (secretory otitis media), right H65.91 ; 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 ; Controlled restless leg syndrome G25.81 ; Edema extremities R60.0 ; SI (stress incontinence), female N39.3 ; Benign essential HTN I10 ; Degenerative arthritis of knee M17.9 and Major depressive disorder with single episode, remission status unspecified F32.9 [facility] [address] [place] [id number] [place] [address] 19 Apr, 2016 OME (otitis media with effusion), right H65.91 [facility] [address], [place] [address] Mar, [place] [address] [place] [id number] [place] [address] Mar, 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 ; Controlled restless leg syndrome G25.81 ; SI (stress incontinence), female N39.3 ; Benign essential HTN I10 ; GERD (gastroesophageal reflux disease) K21.9 ; Knee pain M25.569 and Major depressive disorder with single episode, remission status unspecified F32.9 [place] [address] [place] [address] Mar, [place] [address] [place] [id number] [place] [address] Mar, [place] [address] [place] [id number] [place] [address] Jan, Pre-op exam Z01.818 [place] [address], [place] [address] Oct, Urinary tract infection N39.0 ; Benign essential HTN I10 ; Controlled restless leg syndrome G25.81 ; Edema extremities R60.0 ; Degenerative arthritis of knee M17.9 and GERD (gastroesophageal reflux disease) K21.9 [place] [address] [place] [address] Oct, Izzy albicans infection B37.9 [place] [address], [place] [address] Sep, [place] [address] [place] [id number] [place] [address] Sep, UTI (urinary tract infection) N39.0 ; Benign essential HTN I10 ; 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 ; Controlled restless leg syndrome G25.81 ; Edema extremities R60.0 ; SI (stress incontinence), female N39.3 and 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 [place] [address] [place] [id number] [place] [address] 12 Sep, 2015 UTI (urinary tract infection) N39.0 [place] [address] [place] [id number] [place] [address] 11 Aug, 2015 Pre-op evaluation Z01.818 [place] [address] [address] Aug, [place] [address] [place] [id number] [place] [address] 08 Aug, 2015 [place] [address] [address] 14 Jul, 2015 Right hip pain M25.551 ; 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 and Knee pain M25.569 [place] [id number] [place] [address] Jul, [place] [address] [place] [id number] [place] [address] Jun, Knee pain M25.569 ; 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 and Degenerative arthritis of knee M17.9 [place] [id number] [place] [address] Jun, [place] [address] [place] [id number] [place] [address] 30 Apr, 2015 Diabetes mellitus 250.00 ; Influenza vaccine administered V04.81 ; Incontinence 788.30 ; Restless legs syndrome 333.94 ; Sciatica 724.3 ; Essential hypertension, benign 401.1 ; Edema 782.3 and Depression (emotion) 311 [place] [address] [place] [id number] [place] [address] 24 Mar, 2015 Pain in joint, lower leg 719.46 and Sciatica 724.[address] [place] [address] Mar, [facility] [address] [place] [address] [address] Feb, Pain in joint, site unspecified 719.40 ; Other urinary incontinence 788.39 ; Pain in joint, lower leg 719.46 ; Edema 782.3 ; Sciatica 724.3 ; Essential hypertension, benign 401.1 ; Depression 311 ; Diabetes mellitus 250.00 ; Incontinence 788.30 and Restless legs syndrome 333.94 [facility] [address] [place] [id number] [address] Feb, [facility] [address] [place] [id number] [place] [address] Nov, [facility] [address] [place] [id number] [place] [address] Nov, [facility] [address] [place] [id number] [place] [address] Oct, [facility] [address] [place] [address] Oct, [facility] [address] [place] [id number] [place] [address] Aug, [facility] [address], [place] [address] Aug, [facility] [address], [place] [address] Aug, [facility] [address], [place] [address] Aug, [facility] [address] [place] [id number] [place] [address] Aug, [facility] [address], [place] [address] Aug, [facility] [address] [place] [address] Jun, [facility] [place] [facility] [address] [id number] [place] [address] Jun, [facility] [place] [facility] [address] [id number] [place] [address] Jun, [facility] [place] [facility] [address] [id number] [place] [address] Jun, [facility] [place] [facility] [address] [id number] [place] [address] Jun, [facility] [place] [facility] [address] [id number] [place] [address] Jun, [facility] [place] [facility] [address] [id number] [place] [address] May, [facility] [place] [facility] [address] [id number] [place] [address] May, [facility] [place] [facility] [address] [id number] [place] [address] May, [facility] [place] [facility] [address] [id number] [place] [address] May, [facility] [place] [facility] [address] [id number] [place] [address] Apr, [facility] [place] [facility] [address] [id number] [place] [address] Apr, [facility] [place] [facility] [address] [id number], [place] [address] Apr, [facility] [place] [facility] [address] [id number] [place] [address] Apr, [facility] [place] [facility] [address] [id number] [place] [address] Mar, [facility] [place] [facility] [address] [id number] [place] [address] Mar, [facility] [place] [facility] [address] [id number] [place] [address] Mar, [facility] [place] [facility] [address] [id number] [place] [address] Mar, [facility] [place] [facility] [address] [id number] [place] [address] Mar, [facility] [place] [facility] [address] [id number] [place] [address] Mar, [facility] [place] [facility] [address] [id number] [place] [address] Feb, [facility] [place] [facility] [address] [id number] [place] [address] Feb, [facility] [place] [facility] [address] [id number] [place] [address] Jan, [facility] [place] [facility] [address] [id number] [place] [address] Jan, [facility] [place] [facility] [address] [id number] [place] [address] Jan, [facility] [place] [facility] [address] [id number] [place] [address] Jan, [facility] [place] [facility] [address] [id number] [place] [address] December, [facility] [place] [facility] [address] [id number] [place] [address] December, [facility] [place] [facility] [address] [id number] [place] [address] December, [facility] [place] [facility] [address] [id number] [place] [address] December, [facility] [place] [facility] [address] [id number] [place] [address] December, [facility] [place] [facility] [address] [id number] [place] [address] December, [facility] [place] [facility] [address] [id number] [place] [address] December, [facility] [place] [facility] [address] [id number] [place] [address] December, [facility] [place] [facility] [address] [id number] [place] [address] Nov, [facility] [place] [facility] [address] [id number] [place] [address] Nov, [facility] [place] [facility] [address] [id number] [place] [address] Nov, [facility] [place] [facility] [address] [id number] [place] [address] Nov, [facility] [place] [facility] [address] [id number] [place] [address] Oct, [facility] [place] [facility] [address] [id number] [place] [address] Oct, [facility] [place] [facility] [address] [id number] [place] [address] Oct, [facility] [place] [facility] [address] [id number] [place] [address] Oct, [facility] [place] [facility] [address] [id number] [place] [address] Oct, [facility] [place] [facility] [address] [id number] [place] [address] Oct, [facility] [place] [facility] [address] [id number] [place] [address] Oct, [facility] [place] [facility] [address] [id number] [place] [address] Oct, [facility] [place] [facility] [address] [id number] [place] [address] Sep, [facility] [place] [facility] [address] [id number] [place] [address] Sep, [facility] [address] [id number] [place] [address] Sep, [facility] [place] [facility] [address] [id number] [place] [address] Sep, [facility] [place] [facility] [address] [facility] [id number] [place] [address] Sep, [facility] [place] [facility] [address] [id number] [place] [address] Aug, [facility] [address] [id number] [place] [address] Aug, [facility] [place] [facility] [address] [id number] [place] [address] Jul, [facility] [address] [id number] [place] [address] Jul, [facility] [place] [facility] [address] [id number] [place] [address] Jul, [facility] [address] [facility] [id number] [place] [address] Jul, [facility] [place] [facility] [address] [facility] [id number] [place] [address] Jul, [facility] [place] [facility] [address] [facility] [id number] [place] [address] Jul, [facility] [place] [facility] [address] [id number] [place] [address] Jul, [facility] [place] [facility] [address] [id number] [place] [address] Jun, [facility] [place] [facility] [address] [id number] [place] [address] Jun, [facility] [place] [facility] [address] [facility] [id number] [place] [address] Jun, [facility] [place] [facility] [address] [id number] [place] [address] Jun, [facility] [place] [facility] [address] [id number] [place] [address] Jun, [facility] [place] [facility] [address] [id number] [place] [address] Jun, [facility] [place] [facility] [address] [id number] [place] [address] Jun, [facility] [place] [facility] [address] [id number] [place] [address] Jun, [facility] [place] [facility] [address] [id number] [place] [address] Jun, [facility] [place] [facility] [address] [id number] [place] [address] Jun, [facility] [place] [facility] [address] [id number] [place] [address] Jun, [facility] [place] [facility] [address] [id number] [place] [address] Jun, [facility] [place] [facility] [address] [id number] [place] [address] Jun, [facility] [place] [facility] [address] [id number] [place] [address] May, [facility] [place] [facility] [address] [id number] [place] [address] May, [facility] [place] [facility] [address] [id number] [place] [address] May, [facility] [place] [facility] [address] [id number] [place] [address] May, [facility] [place] [facility] [address] [id number] [place] [address] May, [facility] [place] [facility] [address] [id number] [place] [address] May, [facility] [place] [facility] [address] [id number] [place] [address] 10 May, 2013 [facility] [place] [facility] [address] [id number] [place] [address] 10 May, 2013 [facility] [place] [facility] [address] [id number] [place] [address] May, [facility] [place] [facility] [address] [id number] [place] [address] 23 Apr, 2013 [facility] [place] [facility] [address] [id number] [place] [address] 21 Apr, 2013 [facility] [place] [facility] [address] [id number] [place] [address] Apr, [facility] [place] [facility] [address] [id number] [place] [address] Apr, [facility] [place] [facility] [address] [id number], [place] [address] 15 Mar, 2013 [facility] [place] [facility] [address] [id number], [place] [address] 14 Mar, 2013 [facility] [place] [facility] [address] [id number], [place] [address] Mar, [facility] [place] [facility] [address] [id number], [place] [address] Jan, [facility] [place] [facility] [address] [id number], [place] [address] Jan, [facility] [place] [facility] [address] [id number], [place] [address] Jan, [facility] [place] [facility] [address] [id number], [place] [address] Jan, [facility] [place] [facility] [address] [id number], [place] [address] December, [facility] [place] [facility] [address] [id number] [place] [address] 11 Nov, 2012 [facility] [address] [id number] [place] [address] 10 Nov, 2012 [facility] [address] [id number] [place] [address] 19 Sep, 2012 [facility] [address] [id number] [place] [address] 13 Sep, 2012 [facility] [address] [id number] [place] [address] Sep, [facility] [address] [id number] [place] [address] 29 Aug, 2012 [facility] [address] [id number] [place] [address] 18 Aug, 2012 [facility] [address] [id number] [place] [address] 17 Aug, 2012 [facility] [address] [id number] [place] [address] 16 Aug, 2012 [facility] [address] [id number] [place] [address] 16 Aug, 2012 [facility] [address] [id number] [place] [address] 15 Aug, 2012 [facility] [address] [id number] [place] [address] Aug, [facility] [facility] [address] [id number] [place] [address] Jul, [facility] [address] [id number] [place] [address] Jul, [facility] [address] [id number] [place] [address] Jun, [facility] [address] [id number] [place] [address] Jun, [facility] [place] [facility] [address] [id number] [place] [address] May, [facility] [place] [facility] [address] [id number] [place] [address] May, [facility] [place] [facility] [address] [id number] [place] [address] May, [facility] [place] [facility] [address] [id number] [place] [address] May, [facility] [place] [facility] [address] [id number] [place] [address] 26 Apr, 2012 [facility] [place] [facility] [address] [id number] [place] [address] 24 Apr, 2012 [facility] [place] [facility] [address] [id number] [place] [address] 21 Apr, 2012 [facility] [place] [facility] [address] [id number] [place] [address] 20 Apr, 2012 [facility] [place] [facility] [address] [id number] [place] [address] 20 Apr, 2012 [facility] [place] [facility] [address] [id number], [place] [address] 19 Apr, 2012 [facility] [place] [facility] [address] [id number], [place] [address] Apr, [facility] [place] [facility] [address] [id number], [place] [address] Mar, [facility] [place] [facility] [address] [id number] [place] [address] December, [facility] [place] [facility] [address] [id number], [place] [address] December, [facility] [place] [facility] [address] [id number], [place] [address] December, [facility] [place] [facility] [address] [id number], [place] [address] 10 Sep, 2011 [facility] [address] [id number], [place] [address] Sep, [facility] [address] [id number], [place] [address] Aug, [facility] [id number], [place] [address] Aug, [facility] [id number], [place] [address] Aug, [facility] [id number], [place] [address] Jun, [facility] [id number], [place] [address] Jun, [facility] [id number], [place] [address] Jun, [facility] [id number], [place] [address] Jun, [facility] [id number], [place] [address] Mar, [facility] [address] [id number], [place] [address] Jan, [facility] [address] [id number] [address] December, IMMUNIZATIONS No Known Immunizations SOCIAL HISTORY Never Assessed REASON FOR VISIT EMR-[facility] PLAN OF CARE VITAL SIGNS MEDICATIONS Unknown [...]
--- OUTSIDE RECORDS SUMMARY | 2019-03-05 10:43 | XMS REPORT ---
Author Author Migration, Doctor Organization [facility] Address Unknown Phone Unavailable Care Team Providers Care Immigration Inspector Name Role Phone Migration, Doctor Unavailable Unavailable PROBLEMS Type Condition ICD9-CM Code BRS82-LL Code Onset Dates Condition Status SNOMED Code Problem Controlled restless leg syndrome G25.81 Active 66672945 Problem GERD (gastroesophageal reflux disease) K21.9 Active 589979526 Problem Mild single current episode of major depressive disorder F32.0 Active 22415112 Problem Recurrent major depressive disorder, in full remission F33.42 Active 96857816 Problem Benign essential HTN I10 Active 6486615 Problem Low back pain M54.5 Active 212116936 Problem Morbid (severe) obesity due to excess calories E66.01 Active 082969286 Problem OAB (overactive bladder) N32.81 Active 479699099 Problem Other chronic pain G89.29 Active 82374567 Problem Type 2 diabetes mellitus without complication, without long-term current use of insulin E11.9 Active [id number] ALLERGIES No Information ENCOUNTERS Encounter Location Date Diagnosis [place] [id number] [place] [address] Nov, Degenerative arthritis of knee M17.9 [place] [address] [place] [address] Oct, Type 2 diabetes mellitus without complication, without long-term current use of insulin E11.9 ; Low back pain M54.5 ; Other chronic pain G89.29 ; Recurrent major depressive disorder, in full remission F33.42 and Benign essential HTN I10 [place] [address] [place] [id number] [place] [address] Oct, Degenerative arthritis of knee M17.9 [place] [address] [place] [address] Sep, Degenerative arthritis of knee M17.9 [place] [id number] [place] [address] Sep, [facility] [address] [address] Aug, Degenerative arthritis of knee M17.9 [facility] [address] [id number] [place] [address] Aug, [facility] [address] [address] Jul, Dysuria R30.0 ; Acute cystitis without hematuria N30.00 ; Vaginal odor N89.8 and BMI 40.0-44.9, adult Z68.41 [place] [address] [address] Jul, [place] [address] [address] Jul, Degenerative arthritis of knee M17.9 [place] [id number] [place] [address] Jun, Degenerative arthritis of knee M17.9 [place] [address] [address] Jun, Degenerative arthritis of knee M17.9 [place] [id number] [place] [address] Jun, Benign essential HTN I10 ; Type 2 diabetes mellitus without complication, without long-term current use of insulin E11.9 ; Acute cystitis without hematuria N30.00 ; Low back pain M54.5 ; Other chronic pain G89.29 and BMI 40.0- 44.9, adult Z68.41 [place] [address] [address] May, Neuroma of foot D36.13 and 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 [place] [address] [address] May, Degenerative arthritis of knee M17.9 [facility] [address] [address] May, Encounter for immunization Z23 [facility] [id number] [place] [address] Apr, [facility] [id number] [place] [address] Apr, Degenerative arthritis of knee M17.9 [facility] [address] [id number] [place] [address] Mar, Degenerative arthritis of knee M17.9 [place] [id number] [place] [address] Mar, Type 2 diabetes mellitus with diabetic peripheral angiopathy without gangrene, without long-term current use of insulin E11.51 ; Benign essential HTN I10 ; Degenerative arthritis of knee M17.9 and Mild single current episode of major depressive disorder F32.0 [place] [id number] [place] [address] Feb, [place] [id number] [place] [address] Feb, Degenerative arthritis of knee M17.9 [place] [id number] [place] [address] Feb, [place] [id number] [place] [address] Jan, Degenerative arthritis of knee M17.9 [place] [id number] [place] [address] Jan, Herpes zoster without complication B02.9 and BMI 40.0-44.9, adult Z68.41 [place] [id number] [place] [address] December, Degenerative arthritis of knee M17.9 [place] [id number] [place] [address] Nov, Benign essential HTN I10 ; Type [...] GERD (gastroesophageal reflux disease) K21.9 [place] [id number] [place] [address] Nov, [place] [address] [address] Oct, Degenerative arthritis of knee M17.9 [place] [address] [address] Oct, [place] [address] [address] Oct, Type 2 diabetes mellitus with diabetic peripheral angiopathy without gangrene, without long-term current use of insulin E11.51 and Controlled substance agreement signed Z79.899 [place] [id number] [place] [address] Oct, Degenerative arthritis of knee M17.9 [place] [id number] [place] [address] Sep, Type 2 diabetes mellitus with diabetic peripheral angiopathy without gangrene, without long-term current use of insulin E11.51 ; Benign essential HTN I10 ; BMI 40.0-44.9, adult Z68.41 ; Mild single current episode of major depressive disorder F32.0 ; OAB (overactive bladder) N32.81 ; Degenerative arthritis of knee M17.9 and GERD (gastroesophageal reflux disease) K21.9 [place] [address] [id number] [place] [address] Aug, Joint pain and swelling due to Lyme disease A69.20 [place] [address] [id number] [place] [address] Jun, [place] [id number] [place] [address] May, 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 ; Benign essential HTN I10 ; 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 ; Body mass index (BMI) of 40.0-44.9 in adult Z68.41 and Morbid (severe) obesity due to excess calories E66.01 [place] [id number] [place] [address] May, Encounter for immunization Z23 [place] [id number] [place] [address] May, 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 [place] [id number] [place] [address] Mar, Mild single current episode of major depressive disorder F32.0 [place] [id number] [place] [address] Mar, Joint pain and swelling due to Lyme disease A69.20 [place] [id number] [place] [address] Feb, Izzy infection B37.9 [place] [id number] [place] [address] Jan, Insect bite (nonvenomous) of abdominal wall, initial encounter S30.861A and Joint pain and swelling due to Lyme disease A69.20 [place] [id number] [place] [address] Jan, [place] [address] [id number] [place] [address] Sep, Mild single current episode of major depressive disorder F32.0 and 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 [facility] [address] [place] [address] 13 Sep, 2016 Controlled restless leg syndrome G25.81 and Cramp of both lower extremities R25.2 [facility] [id number] [address] Aug, 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 ; Controlled restless leg syndrome G25.81 ; SI (stress incontinence), female N39.3 ; Benign essential HTN I10 ; 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 ; GERD (gastroesophageal reflux disease) K21.9 ; Screening cholesterol level Z13.220 and Mild single current episode of major depressive disorder F32.0 [place] [address] [place] [id number] [place] [address] Aug, [place] [address] [id number] [place] [address] May, [place] [address] [id number] [place] [address] May, Encounter for immunization Z23 [place] [address] [address] Apr, [place] [id number] [place] [address] Apr, [place] [address] [id number] [place] [address] 27 Apr, 2016 SAMANTHA (secretory otitis media), right H65.91 ; 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 ; Controlled restless leg syndrome G25.81 ; Edema extremities R60.0 ; SI (stress incontinence), female N39.3 ; Benign essential HTN I10 ; Degenerative arthritis of knee M17.9 and Major depressive disorder with single episode, remission status unspecified F32.9 [facility] [id number] [place] [address] 19 Apr, 2016 OME (otitis media with effusion), right H65.91 [facility] [address] [address] Mar, [place] [id number] [place] [address] Mar, 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 ; Controlled restless leg syndrome G25.81 ; SI (stress incontinence), female N39.3 ; Benign essential HTN I10 ; GERD (gastroesophageal reflux disease) K21.9 ; Knee pain M25.569 and Major depressive disorder with single episode, remission status unspecified F32.9 [place] [address] [place] [address] Mar, [place] [id number] [place] [address] Mar, [place] [id number] [place] [address] Jan, Pre-op exam Z01.818 [place] [address] [address] Oct, Urinary tract infection N39.0 ; Benign essential HTN I10 ; Controlled restless leg syndrome G25.81 ; Edema extremities R60.0 ; Degenerative arthritis of knee M17.9 and GERD (gastroesophageal reflux disease) K21.9 [place] [address] [place] [address] Oct, Izzy albicans infection B37.9 [place] [address] [address] Sep, [place] [id number] [place] [address] Sep, UTI (urinary tract infection) N39.0 ; Benign essential HTN I10 ; 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 ; Controlled restless leg syndrome G25.81 ; Edema extremities R60.0 ; SI (stress incontinence), female N39.3 and 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 [place] [id number] [place] [address] 12 Sep, 2015 UTI (urinary tract infection) N39.0 [place] [id number] [place] [address] 11 Aug, 2015 Pre-op evaluation Z01.818 [place] [address] [address] Aug, [place] [address] [id number] [place] [address] 08 Aug, 2015 [place] [address] [address] 14 Jul, 2015 Right hip pain M25.551 ; 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 and Knee pain M25.569 [place] [id number] [place] [address] Jul, [place] [address] [id number] [place] [address] Jun, Knee pain M25.569 ; 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 and Degenerative arthritis of knee M17.9 [place] [id number] [place] [address] Jun, [place] [address] [id number] [place] [address] 30 Apr, 2015 Diabetes mellitus 250.00 ; Influenza vaccine administered V04.81 ; Incontinence 788.30 ; Restless legs syndrome 333.94 ; Sciatica 724.3 ; Essential hypertension, benign 401.1 ; Edema 782.3 and Depression (emotion) 311 [place] [address] [id number] [place] [address] 24 Mar, 2015 Pain in joint, lower leg 719.46 and Sciatica 724.[address] [place] [address] Mar, [facility] [id number] [address] Feb, Pain in joint, site unspecified 719.40 ; Other urinary incontinence 788.39 ; Pain in joint, lower leg 719.46 ; Edema 782.3 ; Sciatica 724.3 ; Essential hypertension, benign 401.1 ; Depression 311 ; Diabetes mellitus 250.00 ; Incontinence 788.30 and Restless legs syndrome 333.94 [facility] [id number] [address] Feb, [facility] [id number] [place] [address] Nov, [facility] [id number] [place] [address] Nov, [facility] [id number] [place] [address] Oct, [facility] [address] [place] [address] Oct, [facility] [id number] [place] [address] Aug, [facility] [address], [place] [address] Aug, [facility] [address], [place] [address] Aug, [facility] [address], [place] [address] Aug, [facility] [address] [id number] [place] [address] Aug, [facility] [address], [place] [address] Aug, [facility] [address] [place] [address] Jun, [facility] [place] [facility] [address] [id number] [place] [address] Jun, [facility] [place] [facility] [address] [id number] [place] [address] Jun, [facility] [place] [facility] [address] [id number] [place] [address] Jun, [facility] [place] [facility] [address] [id number] [place] [address] Jun, [facility] [place] [facility] [address] [id number] [place] [address] Jun, [facility] [place] [facility] [address] [id number] [place] [address] May, [facility] [place] [facility] [address] [id number] [place] [address] May, [facility] [place] [facility] [address] [id number] [place] [address] May, [facility] [place] [facility] [address] [id number] [place] [address] May, [facility] [place] [facility] [address] [id number] [place] [address] Apr, [facility] [place] [facility] [address] [id number] [place] [address] Apr, [facility] [place] [facility] [address] [id number] [address] Apr, [facility] [place] [facility] [address] [id number] [place] [address] Apr, [facility] [place] [facility] [address] [id number] [place] [address] Mar, [facility] [place] [facility] [address] [id number] [place] [address] Mar, [facility] [place] [facility] [address] [id number] [place] [address] Mar, [facility] [place] [facility] [address] [id number] [place] [address] Mar, [facility] [place] [facility] [address] [id number] [place] [address] Mar, [facility] [place] [facility] [address] [id number] [place] [address] Mar, [facility] [place] [facility] [address] [id number] [place] [address] Feb, [facility] [place] [facility] [address] [id number] [place] [address] Feb, [facility] [place] [facility] [address] [id number] [place] [address] Jan, [facility] [place] [facility] [address] [id number] [place] [address] Jan, [facility] [place] [facility] [address] [id number] [place] [address] Jan, [facility] [place] [facility] [address] [id number] [place] [address] Jan, [facility] [place] [facility] [address] [id number] [place] [address] December, [facility] [place] [facility] [address] [id number] [place] [address] December, [facility] [place] [facility] [address] [id number] [place] [address] December, [facility] [place] [facility] [address] [id number] [place] [address] December, [facility] [place] [facility] [address] [id number] [place] [address] December, [facility] [place] [facility] [address] [id number] [place] [address] December, [facility] [place] [facility] [address] [id number] [place] [address] December, [facility] [place] [facility] [address] [id number] [place] [address] December, [facility] [place] [facility] [address] [id number] [place] [address] Nov, [facility] [place] [facility] [address] [id number] [place] [address] Nov, [facility] [place] [facility] [address] [id number] [place] [address] Nov, [facility] [place] [facility] [address] [id number] [place] [address] Nov, [facility] [place] [facility] [address] [id number] [place] [address] Oct, [facility] [place] [facility] [address] [id number] [place] [address] Oct, [facility] [place] [facility] [address] [id number] [place] [address] Oct, [facility] [place] [facility] [address] [id number] [place] [address] Oct, [facility] [place] [facility] [address] [id number] [place] [address] Oct, [facility] [place] [facility] [address] [id number] [place] [address] Oct, [facility] [place] [facility] [address] [id number] [place] [address] Oct, [facility] [place] [facility] [address] [id number] [place] [address] Oct, [facility] [place] [facility] [address] [id number] [place] [address] Sep, [facility] [place] [facility] [address] [id number] [place] [address] Sep, [facility] [address] [id number] [place] [address] Sep, [facility] [place] [facility] [address] [id number] [place] [address] Sep, [facility] [place] [facility] [address] [facility] [id number] [place] [address] Sep, [facility] [place] [facility] [address] [id number] [place] [address] Aug, [facility] [address] [id number] [place] [address] Aug, [facility] [place] [facility] [address] [id number] [place] [address] Jul, [facility] [address] [id number] [place] [address] Jul, [facility] [place] [facility] [address] [id number] [place] [address] Jul, [facility] [address] [facility] [id number] [place] [address] Jul, [facility] [place] [facility] [address] [facility] [id number] [place] [address] Jul, [facility] [place] [facility] [address] [facility] [id number] [place] [address] Jul, [facility] [place] [facility] [address] [id number] [place] [address] Jul, [facility] [place] [facility] [address] [id number] [place] [address] Jun, [facility] [place] [facility] [address] [id number] [place] [address] Jun, [facility] [place] [facility] [address] [facility] [id number] [place] [address] Jun, [facility] [place] [facility] [address] [id number] [place] [address] Jun, [facility] [place] [facility] [address] [id number] [place] [address] Jun, [facility] [place] [facility] [address] [id number] [place] [address] Jun, [facility] [place] [facility] [address] [id number] [place] [address] Jun, [facility] [place] [facility] [address] [id number] [place] [address] Jun, [facility] [place] [facility] [address] [id number] [place] [address] Jun, [facility] [place] [facility] [address] [id number] [place] [address] Jun, [facility] [place] [facility] [address] [id number] [place] [address] Jun, [facility] [place] [facility] [address] [id number] [place] [address] Jun, [facility] [place] [facility] [address] [id number] [place] [address] Jun, [facility] [place] [facility] [address] [id number] [place] [address] May, [facility] [place] [facility] [address] [id number] [place] [address] May, [facility] [place] [facility] [address] [id number] [place] [address] May, [facility] [place] [facility] [address] [id number] [place] [address] May, [facility] [place] [facility] [address] [id number] [place] [address] May, [facility] [place] [facility] [address] [id number] [place] [address] May, [facility] [place] [facility] [address] [id number] [place] [address] 10 May, 2013 [facility] [place] [facility] [address] [id number] [place] [address] 10 May, 2013 [facility] [place] [facility] [address] [id number] [place] [address] May, [facility] [place] [facility] [address] [id number] [place] [address] 23 Apr, 2013 [facility] [place] [facility] [address] [id number] [place] [address] 21 Apr, 2013 [facility] [place] [facility] [address] [id number] [place] [address] Apr, [facility] [place] [facility] [address] [id number] [place] [address] Apr, [facility] [place] [facility] [address] [id number], [place] [address] 15 Mar, 2013 [facility] [place] [facility] [address] [id number], [place] [address] 14 Mar, 2013 [facility] [place] [facility] [address] [id number], [place] [address] Mar, [facility] [place] [facility] [address] [id number], [place] [address] Jan, [facility] [place] [facility] [address] [id number], [place] [address] Jan, [facility] [place] [facility] [address] [id number], [place] [address] Jan, [facility] [place] [facility] [address] [id number], [place] [address] Jan, [facility] [place] [facility] [address] [id number], [place] [address] December, [facility] [place] [facility] [address] [id number] [place] [address] 11 Nov, 2012 [facility] [address] [id number] [place] [address] 10 Nov, 2012 [facility] [address] [id number] [place] [address] 19 Sep, 2012 [facility] [address] [id number] [place] [address] 13 Sep, 2012 [facility] [address] [id number] [place] [address] Sep, [facility] [address] [id number] [place] [address] 29 Aug, 2012 [facility] [address] [id number] [place] [address] 18 Aug, 2012 [facility] [address] [id number] [place] [address] 17 Aug, 2012 [facility] [address] [id number] [place] [address] 16 Aug, 2012 [facility] [address] [id number] [place] [address] 16 Aug, 2012 [facility] [address] [id number] [place] [address] 15 Aug, 2012 [facility] [address] [id number] [place] [address] Aug, [facility] [address] [id number] [place] [address] Jul, [facility] [address] [id number] [place] [address] Jul, [facility] [address] [id number] [place] [address] Jun, [facility] [address] [id number] [place] [address] Jun, [facility] [place] [facility] [address] [id number] [place] [address] May, [facility] [place] [facility] [address] [id number] [place] [address] May, [facility] [place] [facility] [address] [id number] [place] [address] May, [facility] [place] [facility] [address] [id number] [place] [address] May, [facility] [place] [facility] [address] [id number] [place] [address] 26 Apr, 2012 [facility] [place] [facility] [address] [id number] [place] [address] 24 Apr, 2012 [facility] [place] [facility] [address] [id number] [place] [address] 21 Apr, 2012 [facility] [place] [facility] [address] [id number] [place] [address] 20 Apr, 2012 [facility] [place] [facility] [address] [id number] [place] [address] 20 Apr, 2012 [facility] [place] [facility] [address] [id number], [place] [address] 19 Apr, 2012 [facility] [place] [facility] [address] [id number], [place] [address] Apr, [facility] [place] [facility] [address] [id number], [place] [address] Mar, [facility] [place] [facility] [address] [id number] [place] [address] December, [facility] [place] [facility] [address] [id number], [place] [address] December, [facility] [place] [facility] [address] [id number], [place] [address] December, [facility] [place] [facility] [address] [id number], [place] [address] 10 Sep, 2011 [facility] [address] [id number], [place] [address] Sep, [facility] [address] [id number], [place] [address] Aug, [facility] [id number], [place] [address] Aug, [facility] [id number], [place] [address] Aug, [facility] [id number], [place] [address] Jun, [facility] [id number], [place] [address] Jun, [facility] [id number], [place] [address] Jun, [facility] [id number], [place] [address] Jun, [facility] [id number], [place] [address] Mar, [facility] [address] [id number], [place] [address] Jan, [facility] [address] [id number], [place] [address] December, IMMUNIZATIONS No Known Immunizations SOCIAL HISTORY Never Assessed REASON FOR VISIT EMR-[facility] PLAN OF CARE VITAL SIGNS MEDICATIONS Unknown [...]
--- OUTSIDE RECORDS SUMMARY | 2019-03-05 10:44 | XMS REPORT ---
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 Name Role Phone Migration, Doctor Unavailable Unavailable PROBLEMS Type Condition ICD9-CM Code KRH92-DY Code Onset Dates Condition Status SNOMED Code Problem Controlled restless leg syndrome G25.81 Active 00902355 Problem GERD (gastroesophageal reflux disease) K21.9 Active 667557889 Problem Mild single current episode of major depressive disorder F32.0 Active 29218022 Problem Recurrent major depressive disorder, in full remission F33.42 Active 09223887 Problem Benign essential HTN I10 Active 4469872 Problem Low back pain M54.5 Active 053138676 Problem Morbid (severe) obesity due to excess calories E66.01 Active 794743663 Problem OAB (overactive bladder) N32.81 Active 628864761 Problem Other chronic pain G89.29 Active 11572109 Problem Type 2 diabetes mellitus without complication, without long-term current use of insulin E11.9 Active [id number] ALLERGIES No Information ENCOUNTERS Encounter Location Date Diagnosis [place] [id number] [place] [address] Nov, Degenerative arthritis of knee M17.9 [place] [id number] [place] [address] Oct, Type 2 diabetes mellitus without complication, without long-term current use of insulin E11.9 ; Low back pain M54.5 ; Other chronic pain G89.29 ; Recurrent major depressive disorder, in full remission F33.42 and Benign essential HTN I10 [place] [address] [place] [address] [id number] [place] [address] Oct, Degenerative arthritis of knee M17.9 [place] [id number] [place] [address] Sep, Degenerative arthritis of knee M17.9 [place] [address] [id number] [place] [address] Sep, [facility] [address] [address] Aug, Degenerative arthritis of knee M17.9 [facility] [address] [id number] [place] [address] Aug, [facility] [address] [address] Jul, Dysuria R30.0 ; Acute cystitis without hematuria N30.00 ; Vaginal odor N89.8 and BMI 40.0-44.9, adult Z68.41 [place] [address] [address] Jul, [place] [address] [address] Jul, Degenerative arthritis of knee M17.9 [place] [address] [place] [address] [id number] [place] [address] Jun, Degenerative arthritis of knee M17.9 [place] [address] [address] Jun, Degenerative arthritis of knee M17.9 [place] [address] [id number] [place] [address] Jun, Benign essential HTN I10 ; Type 2 diabetes mellitus without complication, without long-term current use of insulin E11.9 ; Acute cystitis without hematuria N30.00 ; Low back pain M54.5 ; Other chronic pain G89.29 and BMI 40.0- 44.9, adult Z68.41 [place] [address] [address] May, Neuroma of foot D36.13 and 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 [place] [address] [address] May, Degenerative arthritis of knee M17.9 [facility] [address] [address] May, Encounter for immunization Z23 [facility] [id number] [place] [address] Apr, [facility] [address] [id number] [place] [address] Apr, Degenerative arthritis of knee M17.9 [facility] [address] [address] [id number] [place] [address] Mar, Degenerative arthritis of knee M17.9 [place] [address] [id number] [place] [address] Mar, Type 2 diabetes mellitus with diabetic peripheral angiopathy without gangrene, without long-term current use of insulin E11.51 ; Benign essential HTN I10 ; Degenerative arthritis of knee M17.9 and Mild single current episode of major depressive disorder F32.0 [place] [address] [address] [id number] [place] [address] Feb, [place] [address] [id number] [place] [address] Feb, Degenerative arthritis of knee M17.9 [place] [address] [id number] [place] [address] Feb, [place] [address] [id number] [place] [address] Jan, Degenerative arthritis of knee M17.9 [place] [address] [address] [id number] [place] [address] Jan, Herpes zoster without complication B02.9 and BMI 40.0-44.9, adult Z68.41 [place] [address] [place] [address] [id number] [place] [address] December, Degenerative arthritis of knee M17.9 [place] [address] [address] [id number] [place] [address] Nov, Benign essential HTN I10 ; Type [...] Z68.41 and GERD (gastroesophageal reflux disease) K21.9 [place] [address] [address] [id number] [place] [address] Nov, [place] [address] [address] Oct, Degenerative arthritis of knee M17.9 [place] [address] [address] Oct, [place] [address] [address] Oct, Type 2 diabetes mellitus with diabetic peripheral angiopathy without gangrene, without long-term current use of insulin E11.51 and Controlled substance agreement signed Z79.899 [place] [address] [place] [address] [id number] [place] [address] Oct, Degenerative arthritis of knee M17.9 [place] [address] [place] [address] [id number] [place] [address] Sep, Type 2 diabetes mellitus with diabetic peripheral angiopathy without gangrene, without long-term current use of insulin E11.51 ; Benign essential HTN I10 ; BMI 40.0-44.9, adult Z68.41 ; Mild single current episode of major depressive disorder F32.0 ; OAB (overactive bladder) N32.81 ; Degenerative arthritis of knee M17.9 and GERD (gastroesophageal reflux disease) K21.9 [place] [address] [place] [address] [id number] [place] [address] Aug, Joint pain and swelling due to Lyme disease A69.20 [place] [address] [place] [address] [id number] [place] [address] Jun, [place] [address] [address] [id number] [place] [address] May, 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 ; Benign essential HTN I10 ; 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 ; Body mass index (BMI) of 40.0-44.9 in adult Z68.41 and Morbid (severe) obesity due to excess calories E66.01 [place] [address] [place] [address] [id number] [place] [address] May, Encounter for immunization Z23 [place] [address] [place] [address] [id number] [place] [address] May, 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 [place] [address] [place] [address] [id number] [place] [address] Mar, Mild single current episode of major depressive disorder F32.0 [place] [address] [address] [id number] [place] [address] Mar, Joint pain and swelling due to Lyme disease A69.20 [place] [address] [address] [id number] [place] [address] Feb, Izzy infection B37.9 [place] [address] [address] [id number] [place] [address] Jan, Insect bite (nonvenomous) of abdominal wall, initial encounter S30.861A and Joint pain and swelling due to Lyme disease A69.20 [place] [address] [address] [id number] [place] [address] Jan, [place] [address] [address] [id number] [place] [address] Sep, Mild single current episode of major depressive disorder F32.0 and 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220 and Mild single current episode of major depressive disorder F32.0 [place] [address] [place] [address] [id number] [place] [address] Aug, [place] [address] [place] [id number] [place] [address] May, [place] [address] [place] [id number] [place] [address] May, Encounter for immunization Z23 [place] [address] [address] Apr, [place] [address] [place] [id number] [place] [address] Apr, [place] [address] [place] [address] [id number] [place] [address] 27 Apr, 2016 SAMANTHA (secretory otitis media), right H65.91 ; 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 ; Controlled restless leg syndrome G25.81 ; Edema extremities R60.0 ; SI (stress incontinence), female N39.3 ; Benign essential HTN I10 ; Degenerative arthritis of knee M17.9 and Major depressive disorder with single episode, remission status unspecified F32.9 [facility] [address] [address] [id number] [place] [address] 19 Apr, 2016 OME (otitis media with effusion), right H65.91 [facility] [address] [address] Mar, [place] [address] [place] [address] [id number] [place] [address] Mar, 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 ; Controlled restless leg syndrome G25.81 ; SI (stress incontinence), female N39.3 ; Benign essential HTN I10 ; GERD (gastroesophageal reflux disease) K21.9 ; Knee pain M25.569 and Major depressive disorder with single episode, remission status unspecified F32.9 [place] [id number] [place] [address] Mar, [place] [address] [address] [id number] [place] [address] Mar, [place] [address] [place] [address] [id number] [place] [address] Jan, Pre-op exam Z01.818 [place] [address] [address] Oct, Urinary tract infection N39.0 ; Benign essential HTN I10 ; Controlled restless leg syndrome G25.81 ; Edema extremities R60.0 ; Degenerative arthritis of knee M17.9 and GERD (gastroesophageal reflux disease) K21.9 [place] [id number] [place] [address] Oct, Izzy albicans infection B37.9 [place] [address] [address] Sep, [place] [address] [id number] [place] [address] Sep, UTI (urinary tract infection) N39.0 ; Benign essential HTN I10 ; 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 ; Controlled restless leg syndrome G25.81 ; Edema extremities R60.0 ; SI (stress incontinence), female N39.3 and 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 [place] [address] [place] [id number] [place] [address] 12 Sep, 2015 UTI (urinary tract infection) N39.0 [place] [address] [place] [id number] [place] [address] 11 Aug, 2015 Pre-op evaluation Z01.818 [place] [address] [address] Aug, [place] [address] [place] [id number] [place] [address] 08 Aug, 2015 [place] [address] [address] 14 Jul, 2015 Right hip pain M25.551 ; 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 and Knee pain M25.569 [place] [id number] [place] [address] Jul, [place] [address] [place] [address] [id number] [place] [address] Jun, Knee pain M25.569 ; 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 and Degenerative arthritis of knee M17.9 [place] [id number] [place] [address] Jun, [place] [address] [place] [address] [id number] [place] [address] 30 Apr, 2015 Diabetes mellitus 250.00 ; Influenza vaccine administered V04.81 ; Incontinence 788.30 ; Restless legs syndrome 333.94 ; Sciatica 724.3 ; Essential hypertension, benign 401.1 ; Edema 782.3 and Depression (emotion) 311 [place] [address] [place] [id number] [place] [address] 24 Mar, 2015 Pain in joint, lower leg 719.46 and Sciatica 724.[address] [place] [address] Mar, [facility] [address] [id number] [address] Feb, Pain in joint, site unspecified 719.40 ; Other urinary incontinence 788.39 ; Pain in joint, lower leg 719.46 ; Edema 782.3 ; Sciatica 724.3 ; Essential hypertension, benign 401.1 ; Depression 311 ; Diabetes mellitus 250.00 ; Incontinence 788.30 and Restless legs syndrome 333.94 [facility] [address] [id number] [address] Feb, [facility] [address] [address] [id number] [place] [address] Nov, [facility] [address] [id number] [place] [address] Nov, [facility] [address] [id number] [place] [address] Oct, [facility] [id number] [place] [address] Oct, [facility] [address] [id number] [place] [address] Aug, [facility] [address], [place] [address] Aug, [facility] [address] [place] [address] Aug, [facility] [address], [place] [address] Aug, [facility] [address] [id number] [place] [address] Aug, [facility] [address] [place] [address] Aug, [facility] [id number] [place] [address] Jun, [facility] [place] [facility] [address] [id number] [place] [address] Jun, [facility] [place] [facility] [address] [id number] [place] [address] Jun, [facility] [place] [facility] [address] [id number] [place] [address] Jun, [facility] [place] [facility] [address] [id number] [place] [address] Jun, [facility] [place] [facility] [address] [id number] [place] [address] Jun, [facility] [place] [facility] [address] [id number] [place] [address] May, [facility] [place] [facility] [address] [id number] [place] [address] May, [facility] [place] [facility] [address] [id number] [place] [address] May, [facility] [place] [facility] [address] [id number] [place] [address] May, [facility] [place] [facility] [address] [id number] [place] [address] Apr, [facility] [place] [facility] [address] [id number] [place] [address] Apr, [facility] [place] [facility] [address] [id number] [address] Apr, [facility] [place] [facility] [address] [id number] [place] [address] Apr, [facility] [place] [facility] [address] [id number] [place] [address] Mar, [facility] [place] [facility] [address] [id number] [place] [address] Mar, [facility] [place] [facility] [address] [id number] [place] [address] Mar, [facility] [place] [facility] [address] [id number] [place] [address] Mar, [facility] [place] [facility] [address] [id number] [place] [address] Mar, [facility] [place] [facility] [address] [id number] [place] [address] Mar, [facility] [place] [facility] [address] [id number] [place] [address] Feb, [facility] [place] [facility] [address] [id number] [place] [address] Feb, [facility] [place] [facility] [address] [id number] [place] [address] Jan, [facility] [place] [facility] [address] [id number] [place] [address] Jan, [facility] [place] [facility] [address] [id number] [place] [address] Jan, [facility] [place] [facility] [address] [id number] [place] [address] Jan, [facility] [place] [facility] [address] [id number] [place] [address] December, [facility] [place] [facility] [address] [id number] [place] [address] December, [facility] [place] [facility] [address] [id number] [place] [address] December, [facility] [place] [facility] [address] [id number] [place] [address] December, [facility] [place] [facility] [address] [id number] [place] [address] December, [facility] [place] [facility] [address] [id number] [place] [address] December, [facility] [place] [facility] [address] [id number] [place] [address] December, [facility] [place] [facility] [address] [id number] [place] [address] December, [facility] [place] [facility] [address] [id number] [place] [address] Nov, [facility] [place] [facility] [address] [id number] [place] [address] Nov, [facility] [place] [facility] [address] [id number] [place] [address] Nov, [facility] [place] [facility] [address] [id number] [place] [address] Nov, [facility] [place] [facility] [address] [id number] [place] [address] Oct, [facility] [place] [facility] [address] [id number] [place] [address] Oct, [facility] [place] [facility] [address] [id number] [place] [address] Oct, [facility] [place] [facility] [address] [id number] [place] [address] Oct, [facility] [place] [facility] [address] [id number] [place] [address] Oct, [facility] [place] [facility] [address] [id number] [place] [address] Oct, [facility] [place] [facility] [address] [id number] [place] [address] Oct, [facility] [place] [facility] [address] [id number] [place] [address] Oct, [facility] [place] [facility] [address] [id number] [place] [address] Sep, [facility] [place] [facility] [address] [id number] [place] [address] Sep, [facility] [address] [id number] [place] [address] Sep, [facility] [place] [facility] [address] [id number] [place] [address] Sep, [facility] [place] [facility] [address] [facility] [id number] [place] [address] Sep, [facility] [place] [facility] [address] [id number] [place] [address] Aug, [facility] [address] [id number] [place] [address] Aug, [facility] [place] [facility] [address] [id number] [place] [address] Jul, [facility] [address] [id number] [place] [address] Jul, [facility] [place] [facility] [address] [id number] [place] [address] Jul, [facility] [address] [facility] [id number] [place] [address] Jul, [facility] [place] [facility] [address] [facility] [id number] [place] [address] Jul, [facility] [place] [facility] [address] [facility] [id number] [place] [address] Jul, [facility] [place] [facility] [address] [id number] [place] [address] Jul, [facility] [place] [facility] [address] [id number] [place] [address] Jun, [facility] [place] [facility] [address] [id number] [place] [address] Jun, [facility] [place] [facility] [address] [facility] [id number] [place] [address] Jun, [facility] [place] [facility] [address] [id number] [place] [address] Jun, [facility] [place] [facility] [address] [id number] [place] [address] Jun, [facility] [place] [facility] [address] [id number] [place] [address] Jun, [facility] [place] [facility] [address] [id number] [place] [address] Jun, [facility] [place] [facility] [address] [id number] [place] [address] Jun, [facility] [place] [facility] [address] [id number] [place] [address] Jun, [facility] [place] [facility] [address] [id number] [place] [address] Jun, [facility] [place] [facility] [address] [id number] [place] [address] Jun, [facility] [place] [facility] [address] [id number] [place] [address] Jun, [facility] [place] [facility] [address] [id number] [place] [address] Jun, [facility] [place] [facility] [address] [id number] [place] [address] May, [facility] [place] [facility] [address] [id number] [place] [address] May, [facility] [place] [facility] [address] [id number] [place] [address] May, [facility] [place] [facility] [address] [id number] [place] [address] May, [facility] [place] [facility] [address] [id number] [place] [address] May, [facility] [place] [facility] [address] [id number] [place] [address] May, [facility] [place] [facility] [address] [id number] [place] [address] 10 May, 2013 [facility] [place] [facility] [address] [id number] [place] [address] 10 May, 2013 [facility] [place] [facility] [address] [id number] [place] [address] May, [facility] [place] [facility] [address] [id number] [place] [address] 23 Apr, 2013 [facility] [place] [facility] [address] [id number] [place] [address] 21 Apr, 2013 [facility] [place] [facility] [address] [id number] [place] [address] Apr, [facility] [place] [facility] [address] [id number] [place] [address] Apr, [facility] [place] [facility] [address] [id number], [place] [address] 15 Mar, 2013 [facility] [place] [facility] [address] [id number], [place] [address] 14 Mar, 2013 [facility] [place] [facility] [address] [id number], [place] [address] Mar, [facility] [place] [facility] [address] [id number], [place] [address] Jan, [facility] [place] [facility] [address] [id number], [place] [address] Jan, [facility] [place] [facility] [address] [id number], [place] [address] Jan, [facility] [place] [facility] [address] [id number], [place] [address] Jan, [facility] [place] [facility] [address] [id number], [place] [address] December, [facility] [place] [facility] [address] [id number] [place] [address] 11 Nov, 2012 [facility] [address] [id number] [place] [address] 10 Nov, 2012 [facility] [address] [id number] [place] [address] 19 Sep, 2012 [facility] [address] [id number] [place] [address] 13 Sep, 2012 [facility] [address] [id number] [place] [address] Sep, [facility] [address] [id number] [place] [address] 29 Aug, 2012 [facility] [address] [id number] [place] [address] 18 Aug, 2012 [facility] [address] [id number] [place] [address] 17 Aug, 2012 [facility] [address] [id number] [place] [address] 16 Aug, 2012 [facility] [address] [id number] [place] [address] 16 Aug, 2012 [facility] [address] [id number] [place] [address] 15 Aug, 2012 [facility] [address] [id number] [place] [address] Aug, [facility] [address] [id number] [place] [id number] Jul, [facility] [address] [id number] [place] [address] Jul, [facility] [address] [id number] [place] [address] Jun, [facility] [address] [id number] [place] [address] Jun, [facility] [place] [facility] [address] [id number] [place] [address] May, [facility] [place] [facility] [address] [id number] [place] [address] May, [facility] [place] [facility] [address] [id number] [place] [address] May, [facility] [place] [facility] [address] [id number] [place] [address] May, [facility] [place] [facility] [address] [id number] [place] [address] 26 Apr, 2012 [facility] [place] [facility] [address] [id number] [place] [address] 24 Apr, 2012 [facility] [place] [facility] [address] [id number] [place] [address] 21 Apr, 2012 [facility] [place] [facility] [address] [id number] [place] [address] 20 Apr, 2012 [facility] [place] [facility] [address] [id number] [place] [address] 20 Apr, 2012 [facility] [place] [facility] [address] [id number], [place] [address] 19 Apr, 2012 [facility] [place] [facility] [address] [id number], [place] [address] Apr, [facility] [place] [facility] [address] [id number], [place] [address] Mar, [facility] [place] [facility] [address] [id number] [place] [address] December, [facility] [place] [facility] [address] [id number], [place] [address] December, [facility] [place] [facility] [address] [id number], [place] [address] December, [facility] [place] [facility] [address] [id number], [place] [address] 10 Sep, 2011 [facility] [address] [id number], [place] [address] Sep, [facility] [address] [id number], [place] [address] Aug, [facility] [id number], [place] [address] Aug, [facility] [id number], [place] [address] Aug, [facility] [id number], [place] [address] Jun, [facility] [id number], [place] [address] Jun, [facility] [id number], [place] [address] Jun, [facility] [id number], [place] [address] Jun, [facility] [id number], [place] [address] Mar, [facility] [address] [id number], [place] [address] Jan, [facility] [address] [id number], [place] [address] December, IMMUNIZATIONS No Known Immunizations SOCIAL HISTORY Never Assessed REASON FOR VISIT [place] [place] C[place] VITAL SIGNS MEDICATIONS [...]
--- OUTSIDE RECORDS SUMMARY | 2019-03-05 10:44 | XMS REPORT ---
Author Author Migration, Doctor Organization [facility] Address Unknown Phone Unavailable Care Team Providers Care Human Performance Consultant Name Role Phone Migration, Doctor Unavailable Unavailable PROBLEMS Type Condition ICD9-CM Code XSG40-BC Code Onset Dates Condition Status SNOMED Code Problem Controlled restless leg syndrome G25.81 Active 67572518 Problem GERD (gastroesophageal reflux disease) K21.9 Active 588645660 Problem Mild single current episode of major depressive disorder F32.0 Active 00999384 Problem Recurrent major depressive disorder, in full remission F33.42 Active 47797561 Problem Benign essential HTN I10 Active 4751261 Problem Low back pain M54.5 Active 762615213 Problem Morbid (severe) obesity due to excess calories E66.01 Active 245892086 Problem OAB (overactive bladder) N32.81 Active 507943500 Problem Other chronic pain G89.29 Active 42431937 Problem Type 2 diabetes mellitus without complication, without long-term current use of insulin E11.9 Active 952957709 ALLERGIES No Information ENCOUNTERS Encounter Location Date Diagnosis [place] [id number] [place] [address] Nov, Degenerative arthritis of knee M17.9 [place] [id number] [place] [address] Oct, Type 2 diabetes mellitus without complication, without long-term current use of insulin E11.9 ; Low back pain M54.5 ; Other chronic pain G89.29 ; Recurrent major depressive disorder, in full remission F33.42 and Benign essential HTN I10 [place] [address] [place] [id number] [place] [address] Oct, Degenerative arthritis of knee M17.9 [place] [id number] [place] [address] Sep, Degenerative arthritis of knee M17.9 [place] [address] [place] [id number] [place] [address] Sep, [facility] [address] [address] Aug, Degenerative arthritis of knee M17.9 [facility] [address] [place] [id number] [place] [address] Aug, [facility] [address] [address] Jul, Dysuria R30.0 ; Acute cystitis without hematuria N30.00 ; Vaginal odor N89.8 and BMI 40.0-44.9, adult Z68.41 [place] [address] [address] Jul, [place] [address] [address] Jul, Degenerative arthritis of knee M17.9 [place] [address] [place] [id number] [place] [address] Jun, Degenerative arthritis of knee M17.9 [place] [address] [address] Jun, Degenerative arthritis of knee M17.9 [place] [address] [place] [id number] [place] [address] Jun, Benign essential HTN I10 ; Type 2 diabetes mellitus without complication, without long-term current use of insulin E11.9 ; Acute cystitis without hematuria N30.00 ; Low back pain M54.5 ; Other chronic pain G89.29 and BMI 40.0- 44.9, adult Z68.41 [place] [address] [address] May, Neuroma of foot D36.13 and 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 [place] [address] [address] May, Degenerative arthritis of knee M17.9 [facility] [address] [address] May, Encounter for immunization Z23 [facility] [address] [place] [id number] [place] [address] Apr, [facility] [address] [place] [id number] [place] [address] Apr, Degenerative arthritis of knee M17.9 [facility] [address] [place] [id number] [place] [address] Mar, Degenerative arthritis of knee M17.9 [place] [address] [place] [id number] [place] [address] Mar, Type 2 diabetes mellitus with diabetic peripheral angiopathy without gangrene, without long-term current use of insulin E11.51 ; Benign essential HTN I10 ; Degenerative arthritis of knee M17.9 and Mild single current episode of major depressive disorder F32.0 [place] [address] [place] [id number] [place] [address] Feb, [place] [address] [place] [id number] [place] [address] Feb, Degenerative arthritis of knee M17.9 [place] [address] [place] [id number] [place] [address] Feb, [place] [address] [place] [id number] [place] [address] Jan, Degenerative arthritis of knee M17.9 [place] [address] [place] [id number] [place] [address] Jan, Herpes zoster without complication B02.9 and BMI 40.0-44.9, adult Z68.41 [place] [address] [place] [id number] [place] [address] December, Degenerative arthritis of knee M17.9 [place] [address] [place] [id number] [place] [address] Nov, Benign essential HTN I10 ; Type [...] Z68.41 and GERD (gastroesophageal reflux disease) K21.9 [place] [address] [place] [id number] [place] [address] Nov, [place] [address] [address] Oct, Degenerative arthritis of knee M17.9 [place] [address] [address] Oct, [place] [address] [address] Oct, Type 2 diabetes mellitus with diabetic peripheral angiopathy without gangrene, without long-term current use of insulin E11.51 and Controlled substance agreement signed Z79.899 [place] [address] [place] [id number] [place] [address] Oct, Degenerative arthritis of knee M17.9 [place] [address] [place] [id number] [place] [address] Sep, Type 2 diabetes mellitus with diabetic peripheral angiopathy without gangrene, without long-term current use of insulin E11.51 ; Benign essential HTN I10 ; BMI 40.0-44.9, adult Z68.41 ; Mild single current episode of major depressive disorder F32.0 ; OAB (overactive bladder) N32.81 ; Degenerative arthritis of knee M17.9 and GERD (gastroesophageal reflux disease) K21.9 [place] [address] [place] [id number] [place] [address] Aug, Joint pain and swelling due to Lyme disease A69.20 [place] [address] [place] [id number] [place] [address] Jun, [place] [address] [place] [id number] [place] [address] May, 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 ; Benign essential HTN I10 ; 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 ; Body mass index (BMI) of 40.0-44.9 in adult Z68.41 and Morbid (severe) obesity due to excess calories E66.01 [place] [address] [place] [id number] [place] [address] May, Encounter for immunization Z23 [place] [address] [place] [id number] [place] [address] May, 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 [place] [address] [place] [id number] [place] [address] Mar, Mild single current episode of major depressive disorder F32.0 [place] [address] [place] [id number] [place] [address] Mar, Joint pain and swelling due to Lyme disease A69.20 [place] [address] [place] [id number] [place] [address] Feb, Izzy infection B37.9 [place] [address] [place] [id number] [place] [address] Jan, Insect bite (nonvenomous) of abdominal wall, initial encounter S30.861A and Joint pain and swelling due to Lyme disease A69.20 [place] [address] [place] [id number] [place] [address] Jan, [place] [address] [place] [id number] [place] [address] Sep, Mild single current episode of major depressive disorder F32.0 and 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 [facility] [address] [place] [address] 13 Sep, 2016 Controlled restless leg syndrome G25.81 and Cramp of both lower extremities R25.2 [facility] [address] [place] [address] [address] Aug, 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 ; Controlled restless leg syndrome G25.81 ; SI (stress incontinence), female N39.3 ; Benign essential HTN I10 ; 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 ; GERD (gastroesophageal reflux disease) K21.9 ; Screening cholesterol level Z13.220 and Mild single current episode of major depressive disorder F32.0 [place] [address] [place] [id number] [place] [address] Aug, [place] [address] [place] [id number] [place] [address] May, [place] [address] [place] [id number] [place] [address] May, Encounter for immunization Z23 [place] [address] [address] Apr, [place] [address] [place] [id number] [place] [address] Apr, [place] [address] [place] [id number] [place] [address] 27 Apr, 2016 SAMANTHA (secretory otitis media), right H65.91 ; 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 ; Controlled restless leg syndrome G25.81 ; Edema extremities R60.0 ; SI (stress incontinence), female N39.3 ; Benign essential HTN I10 ; Degenerative arthritis of knee M17.9 and Major depressive disorder with single episode, remission status unspecified F32.9 [facility] [address] [place] [id number] [place] [address] 19 Apr, 2016 OME (otitis media with effusion), right H65.91 [facility] [address] [address] Mar, [place] [address] [place] [id number] [place] [address] Mar, 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 ; Controlled restless leg syndrome G25.81 ; SI (stress incontinence), female N39.3 ; Benign essential HTN I10 ; GERD (gastroesophageal reflux disease) K21.9 ; Knee pain M25.569 and Major depressive disorder with single episode, remission status unspecified F32.9 [place] [address] [place] [address] Mar, [place] [address] [place] [id number] [place] [address] Mar, [place] [address] [place] [id number] [place] [address] Jan, Pre-op exam Z01.818 [place] [address] [address] Oct, Urinary tract infection N39.0 ; Benign essential HTN I10 ; Controlled restless leg syndrome G25.81 ; Edema extremities R60.0 ; Degenerative arthritis of knee M17.9 and GERD (gastroesophageal reflux disease) K21.9 [place] [address] [place] [address] Oct, Izzy albicans infection B37.9 [place] [address] [address] Sep, [place] [address] [place] [id number] [place] [address] Sep, UTI (urinary tract infection) N39.0 ; Benign essential HTN I10 ; 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 ; Controlled restless leg syndrome G25.81 ; Edema extremities R60.0 ; SI (stress incontinence), female N39.3 and 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 [place] [address] [place] [id number] [place] [address] 12 Sep, 2015 UTI (urinary tract infection) N39.0 [place] [address] [place] [id number] [place] [address] 11 Aug, 2015 Pre-op evaluation Z01.818 [place] [address] [address] Aug, [place] [address] [place] [id number] [place] [address] 08 Aug, 2015 [place] [address] [address] 14 Jul, 2015 Right hip pain M25.551 ; 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 and Knee pain M25.569 [place] [id number] [place] [address] Jul, [place] [address] [place] [id number] [place] [address] Jun, Knee pain M25.569 ; 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 and Degenerative arthritis of knee M17.9 [place] [id number] [place] [address] Jun, [place] [address] [place] [id number] [place] [address] 30 Apr, 2015 Diabetes mellitus 250.00 ; Influenza vaccine administered V04.81 ; Incontinence 788.30 ; Restless legs syndrome 333.94 ; Sciatica 724.3 ; Essential hypertension, benign 401.1 ; Edema 782.3 and Depression (emotion) 311 [place] [address] [place] [id number] [place] [address] 24 Mar, 2015 Pain in joint, lower leg 719.46 and Sciatica 724.[address] [place] [address] Mar, [facility] [address] [place] [address] [address] Feb, Pain in joint, site unspecified 719.40 ; Other urinary incontinence 788.39 ; Pain in joint, lower leg 719.46 ; Edema 782.3 ; Sciatica 724.3 ; Essential hypertension, benign 401.1 ; Depression 311 ; Diabetes mellitus 250.00 ; Incontinence 788.30 and Restless legs syndrome 333.94 [facility] [address] [address] [address] Feb, [facility] [address] [place] [id number] [place] [address] Nov, [facility] [address] [place] [id number] [place] [address] Nov, [facility] [address] [place] [id number] [place] [address] Oct, [facility] [address] [place] [address] Oct, [facility] [address] [place] [id number] [place] [address] Aug, [facility] [address] [address] Aug, [facility] [address] [address] Aug, [facility] [address] [address] Aug, [facility] [address] [place] [id number] [place] [address] Aug, [facility] [address] [address] Aug, [facility] [address] [place] [address] Jun, [facility] [place] [facility] [address] [id number] [place] [address] Jun, [facility] [place] [facility] [address] [id number] [place] [address] Jun, [facility] [place] [facility] [address] [id number] [place] [address] Jun, [facility] [place] [facility] [address] [id number] [place] [address] Jun, [facility] [place] [facility] [address] [id number] [place] [address] Jun, [facility] [place] [facility] [address] [id number] [place] [address] May, [facility] [place] [facility] [address] [id number] [place] [address] May, [facility] [place] [facility] [address] [id number] [place] [address] May, [facility] [place] [facility] [address] [id number] [place] [address] May, [facility] [place] [facility] [address] [id number] [place] [address] Apr, [facility] [place] [facility] [address] [id number] [place] [address] Apr, [facility] [place] [facility] [address] [id number] [address] Apr, [facility] [place] [facility] [address] [id number] [place] [address] Apr, [facility] [place] [facility] [address] [id number] [place] [address] Mar, [facility] [place] [facility] [address] [id number] [place] [address] Mar, [facility] [place] [facility] [address] [id number] [place] [address] Mar, [facility] [place] [facility] [address] [id number] [place] [address] Mar, [facility] [place] [facility] [address] [id number] [place] [address] Mar, [facility] [place] [facility] [address] [id number] [place] [address] Mar, [facility] [place] [facility] [address] [id number] [place] [address] Feb, [facility] [place] [facility] [address] [id number] [place] [address] Feb, [facility] [place] [facility] [address] [id number] [place] [address] Jan, [facility] [place] [facility] [address] [id number] [place] [address] Jan, [facility] [place] [facility] [address] [id number] [place] [address] Jan, [facility] [place] [facility] [address] [id number] [place] [address] Jan, [facility] [place] [facility] [address] [id number] [place] [address] December, [facility] [place] [facility] [address] [id number] [place] [address] December, [facility] [place] [facility] [address] [id number] [place] [address] December, [facility] [place] [facility] [address] [id number] [place] [address] December, [facility] [place] [facility] [address] [id number] [place] [address] December, [facility] [place] [facility] [address] [id number] [place] [address] December, [facility] [place] [facility] [address] [id number] [place] [address] December, [facility] [place] [facility] [address] [id number] [place] [address] December, [facility] [place] [facility] [address] [id number] [place] [address] Nov, [facility] [place] [facility] [address] [id number] [place] [address] Nov, [facility] [place] [facility] [address] [id number] [place] [address] Nov, [facility] [place] [facility] [address] [id number] [place] [address] Nov, [facility] [place] [facility] [address] [id number] [place] [address] Oct, [facility] [place] [facility] [address] [id number] [place] [address] Oct, [facility] [place] [facility] [address] [id number] [place] [address] Oct, [facility] [place] [facility] [address] [id number] [place] [address] Oct, [facility] [place] [facility] [address] [id number] [place] [address] Oct, [facility] [place] [facility] [address] [id number] [place] [address] Oct, [facility] [place] [facility] [address] [id number] [place] [address] Oct, [facility] [place] [facility] [address] [id number] [place] [address] Oct, [facility] [place] [facility] [address] [id number] [place] [address] Sep, [facility] [place] [facility] [address] [id number] [place] [address] Sep, [facility] [address] [id number] [place] [address] Sep, [facility] [place] [facility] [address] [id number] [place] [address] Sep, [facility] [place] [facility] [address] [facility] [id number] [place] [address] Sep, [facility] [place] [facility] [address] [id number] [place] [address] Aug, [facility] [address] [id number] [place] [address] Aug, [facility] [place] [facility] [address] [id number] [place] [address] Jul, [facility] [address] [id number] [place] [address] Jul, [facility] [place] [facility] [address] [id number] [place] [address] Jul, [facility] [address] [facility] [id number] [place] [address] Jul, [facility] [place] [facility] [address] [facility] [id number] [place] [address] Jul, [facility] [place] [facility] [address] [facility] [id number] [place] [address] Jul, [facility] [place] [facility] [address] [id number] [place] [address] Jul, [facility] [place] [facility] [address] [id number] [place] [address] Jun, [facility] [place] [facility] [address] [id number] [place] [address] Jun, [facility] [place] [facility] [address] [facility] [id number] [place] [address] Jun, [facility] [place] [facility] [address] [id number] [place] [address] Jun, [facility] [place] [facility] [address] [id number] [place] [address] Jun, [facility] [place] [facility] [address] [id number] [place] [address] Jun, [facility] [place] [facility] [address] [id number] [place] [address] Jun, [facility] [place] [facility] [address] [id number] [place] [address] Jun, [facility] [place] [facility] [address] [id number] [place] [address] Jun, [facility] [place] [facility] [address] [id number] [place] [address] Jun, [facility] [place] [facility] [address] [id number] [place] [address] Jun, [facility] [place] [facility] [address] [id number] [place] [address] Jun, [facility] [place] [facility] [address] [id number] [place] [address] Jun, [facility] [place] [facility] [address] [id number] [place] [address] May, [facility] [place] [facility] [address] [id number] [place] [address] May, [facility] [place] [facility] [address] [id number] [place] [address] May, [facility] [place] [facility] [address] [id number] [place] [address] May, [facility] [place] [facility] [address] [id number] [place] [address] May, [facility] [place] [facility] [address] [id number] [place] [address] May, [facility] [place] [facility] [address] [id number] [place] [address] 10 May, 2013 [facility] [place] [facility] [address] [id number] [place] [address] 10 May, 2013 [facility] [place] [facility] [address] [id number] [place] [address] May, [facility] [place] [facility] [address] [id number] [place] [address] 23 Apr, 2013 [facility] [place] [facility] [address] [id number] [place] [address] 21 Apr, 2013 [facility] [place] [facility] [address] [id number] [place] [address] Apr, [facility] [place] [facility] [address] [id number] [place] [address] Apr, [facility] [place] [facility] [address] [id number], [place] [address] 15 Mar, 2013 [facility] [place] [facility] [address] [id number], [place] [address] 14 Mar, 2013 [facility] [place] [facility] [address] [id number], [place] [address] Mar, [facility] [place] [facility] [address] [id number], [place] [address] Jan, [facility] [place] [facility] [address] [id number], [place] [address] Jan, [facility] [place] [facility] [address] [id number], [place] [address] Jan, [facility] [place] [facility] [address] [id number], [place] [address] Jan, [facility] [place] [facility] [address] [id number], [place] [address] December, [facility] [place] [facility] [address] [id number] [place] [address] 11 Nov, 2012 [facility] [address] [id number] [place] [address] 10 Nov, 2012 [facility] [address] [id number] [place] [address] 19 Sep, 2012 [facility] [address] [id number] [place] [address] 13 Sep, 2012 [facility] [address] [id number] [place] [address] Sep, [facility] [address] [id number] [place] [address] 29 Aug, 2012 [facility] [address] [id number] [place] [address] 18 Aug, 2012 [facility] [address] [id number] [place] [address] 17 Aug, 2012 [facility] [address] [id number] [place] [address] 16 Aug, 2012 [facility] [address] [id number] [place] [address] 16 Aug, 2012 [facility] [address] [id number] [place] [address] 15 Aug, 2012 [facility] [address] [id number] [place] [address] Aug, [facility] [facility] [address] [id number] [place] [address] Jul, [facility] [address] [id number] [place] [address] Jul, [facility] [address] [id number] [place] [address] Jun, [facility] [address] [id number] [place] [address] Jun, [facility] [place] [facility] [address] [id number] [place] [address] May, [facility] [place] [facility] [address] [id number] [place] [address] May, [facility] [place] [facility] [address] [id number] [place] [address] May, [facility] [place] [facility] [address] [id number] [place] [address] May, [facility] [place] [facility] [address] [id number] [place] [address] 26 Apr, 2012 [facility] [place] [facility] [address] [id number] [place] [address] 24 Apr, 2012 [facility] [place] [facility] [address] [id number] [place] [address] 21 Apr, 2012 [facility] [place] [facility] [address] [id number] [place] [address] 20 Apr, 2012 [facility] [place] [facility] [address] [id number] [place] [address] 20 Apr, 2012 [facility] [place] [facility] [address] [id number], [place] [address] 19 Apr, 2012 [facility] [place] [facility] [address] [id number], [place] [address] Apr, [facility] [place] [facility] [address] [id number], [place] [address] Mar, [facility] [place] [facility] [address] [id number] [place] [address] December, [facility] [place] [facility] [address] [id number], [place] [address] December, [facility] [place] [facility] [address] [id number], [place] [address] December, [facility] [place] [facility] [address] [id number], [place] [address] 10 Sep, 2011 [facility] [address] [id number] [address] Sep, [facility] [address] [id number] [address] Aug, [facility] [id number], [place] [address] Aug, [facility] [id number] [address] Aug, [facility] [address] [address] Jun, [facility] [address] [address] Jun, [facility] [address] [address] Jun, [facility] [address] [address] Jun, [facility] [address], [place] [address] Mar, [facility] [address] [id number] [address] Jan, [facility] [address] [id number] [address] December, IMMUNIZATIONS No Known Immunizations SOCIAL HISTORY Never Assessed REASON FOR VISIT EMR-[facility] [place] PLAN OF CARE VITAL SIGNS MEDICATIONS Unknown [...]
--- OUTSIDE RECORDS SUMMARY | 2019-03-05 10:45 | XMS REPORT ---
Author Author Migration, Doctor Organization [facility] Address Unknown Phone Unavailable Care Team Providers Care Hand Miter Operator Name Role Phone Migration, Doctor Unavailable Unavailable PROBLEMS Type Condition ICD9-CM Code UXR92-YL Code Onset Dates Condition Status SNOMED Code Problem Controlled restless leg syndrome G25.81 Active 68340293 Problem GERD (gastroesophageal reflux disease) K21.9 Active 267489231 Problem Mild single current episode of major depressive disorder F32.0 Active 43667303 Problem Recurrent major depressive disorder, in full remission F33.42 Active 95019644 Problem Benign essential HTN I10 Active 9815106 Problem Low back pain M54.5 Active 883619024 Problem Morbid (severe) obesity due to excess calories E66.01 Active 675749802 Problem OAB (overactive bladder) N32.81 Active 776249504 Problem Other chronic pain G89.29 Active 22472287 Problem Type 2 diabetes mellitus without complication, without long-term current use of insulin E11.9 Active [id number] ALLERGIES No Information ENCOUNTERS Encounter Location Date Diagnosis [place] [id number] [place] [address] Nov, Degenerative arthritis of knee M17.9 [place] [id number] [place] [address] Oct, Type 2 diabetes mellitus without complication, without long-term current use of insulin E11.9 ; Low back pain M54.5 ; Other chronic pain G89.29 ; Recurrent major depressive disorder, in full remission F33.42 and Benign essential HTN I10 [place] [address] [place] [id number] [place] [address] Oct, Degenerative arthritis of knee M17.9 [place] [id number] [place] [address] Sep, Degenerative arthritis of knee M17.9 [place] [address] [place] [id number] [place] [address] Sep, [facility] [address] [address] Aug, Degenerative arthritis of knee M17.9 [facility] [address] [place] [id number] [place] [address] Aug, [facility] [address] [address] Jul, Dysuria R30.0 ; Acute cystitis without hematuria N30.00 ; Vaginal odor N89.8 and BMI 40.0-44.9, adult Z68.41 [place] [address] [address] Jul, [place] [address] [address] Jul, Degenerative arthritis of knee M17.9 [place] [address] [place] [id number] [place] [address] Jun, Degenerative arthritis of knee M17.9 [place] [address] [address] Jun, Degenerative arthritis of knee M17.9 [place] [address] [place] [id number] [place] [address] Jun, Benign essential HTN I10 ; Type 2 diabetes mellitus without complication, without long-term current use of insulin E11.9 ; Acute cystitis without hematuria N30.00 ; Low back pain M54.5 ; Other chronic pain G89.29 and BMI 40.0- 44.9, adult Z68.41 [place] [address] [address] May, Neuroma of foot D36.13 and 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 [place] [address] [address] May, Degenerative arthritis of knee M17.9 [facility] [address] [address] May, Encounter for immunization Z23 [facility] [address] [place] [id number] [place] [address] Apr, [facility] [address] [place] [id number] [place] [address] Apr, Degenerative arthritis of knee M17.9 [facility] [address] [place] [id number] [place] [address] Mar, Degenerative arthritis of knee M17.9 [place] [address] [place] [id number] [place] [address] Mar, Type 2 diabetes mellitus with diabetic peripheral angiopathy without gangrene, without long-term current use of insulin E11.51 ; Benign essential HTN I10 ; Degenerative arthritis of knee M17.9 and Mild single current episode of major depressive disorder F32.0 [place] [address] [place] [id number] [place] [address] Feb, [place] [address] [place] [id number] [place] [address] Feb, Degenerative arthritis of knee M17.9 [place] [address] [place] [id number] [place] [address] Feb, [place] [address] [place] [id number] [place] [address] Jan, Degenerative arthritis of knee M17.9 [place] [address] [place] [id number] [place] [address] Jan, Herpes zoster without complication B02.9 and BMI 40.0-44.9, adult Z68.41 [place] [address] [place] [id number] [place] [address] December, Degenerative arthritis of knee M17.9 [place] [address] [place] [id number] [place] [address] Nov, Benign essential HTN I10 ; Type [...] Z68.41 and GERD (gastroesophageal reflux disease) K21.9 [place] [address] [place] [id number] [place] [address] Nov, [place] [address] [address] Oct, Degenerative arthritis of knee M17.9 [place] [address] [address] Oct, [place] [address] [address] Oct, Type 2 diabetes mellitus with diabetic peripheral angiopathy without gangrene, without long-term current use of insulin E11.51 and Controlled substance agreement signed Z79.899 [place] [address] [place] [id number] [place] [address] Oct, Degenerative arthritis of knee M17.9 [place] [address] [place] [id number] [place] [address] Sep, Type 2 diabetes mellitus with diabetic peripheral angiopathy without gangrene, without long-term current use of insulin E11.51 ; Benign essential HTN I10 ; BMI 40.0-44.9, adult Z68.41 ; Mild single current episode of major depressive disorder F32.0 ; OAB (overactive bladder) N32.81 ; Degenerative arthritis of knee M17.9 and GERD (gastroesophageal reflux disease) K21.9 [place] [address] [place] [id number] [place] [address] Aug, Joint pain and swelling due to Lyme disease A69.20 [place] [address] [place] [id number] [place] [address] Jun, [place] [address] [place] [id number] [place] [address] May, 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 ; Benign essential HTN I10 ; 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 ; Body mass index (BMI) of 40.0-44.9 in adult Z68.41 and Morbid (severe) obesity due to excess calories E66.01 [place] [address] [place] [id number] [place] [address] May, Encounter for immunization Z23 [place] [address] [place] [id number] [place] [address] May, 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 [place] [address] [place] [id number] [place] [address] Mar, Mild single current episode of major depressive disorder F32.0 [place] [address] [place] [id number] [place] [address] Mar, Joint pain and swelling due to Lyme disease A69.20 [place] [address] [place] [id number] [place] [address] Feb, Izzy infection B37.9 [place] [address] [place] [id number] [place] [address] Jan, Insect bite (nonvenomous) of abdominal wall, initial encounter S30.861A and Joint pain and swelling due to Lyme disease A69.20 [place] [address] [place] [id number] [place] [address] Jan, [place] [address] [place] [id number] [place] [address] Sep, Mild single current episode of major depressive disorder F32.0 and 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 [facility] [address] [place] [address] 13 Sep, 2016 Controlled restless leg syndrome G25.81 and Cramp of both lower extremities R25.2 [facility] [address] [place] [id number] [address] Aug, 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 ; Controlled restless leg syndrome G25.81 ; SI (stress incontinence), female N39.3 ; Benign essential HTN I10 ; 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 ; GERD (gastroesophageal reflux disease) K21.9 ; Screening cholesterol level Z13.220 and Mild single current episode of major depressive disorder F32.0 [place] [address] [place] [id number] [place] [address] Aug, [place] [address] [place] [id number] [place] [address] May, [place] [address] [place] [id number] [place] [address] May, Encounter for immunization Z23 [place] [address] [address] Apr, [place] [address] [place] [id number] [place] [address] Apr, [place] [address] [place] [id number] [place] [address] 27 Apr, 2016 SAMANTHA (secretory otitis media), right H65.91 ; 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 ; Controlled restless leg syndrome G25.81 ; Edema extremities R60.0 ; SI (stress incontinence), female N39.3 ; Benign essential HTN I10 ; Degenerative arthritis of knee M17.9 and Major depressive disorder with single episode, remission status unspecified F32.9 [facility] [address] [place] [id number] [place] [address] 19 Apr, 2016 OME (otitis media with effusion), right H65.91 [facility] [address] [address] Mar, [place] [address] [place] [id number] [place] [address] Mar, 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 ; Controlled restless leg syndrome G25.81 ; SI (stress incontinence), female N39.3 ; Benign essential HTN I10 ; GERD (gastroesophageal reflux disease) K21.9 ; Knee pain M25.569 and Major depressive disorder with single episode, remission status unspecified F32.9 [place] [address] [place] [address] Mar, [place] [address] [place] [id number] [place] [address] Mar, [place] [address] [place] [id number] [place] [address] Jan, Pre-op exam Z01.818 [place] [address] [address] Oct, Urinary tract infection N39.0 ; Benign essential HTN I10 ; Controlled restless leg syndrome G25.81 ; Edema extremities R60.0 ; Degenerative arthritis of knee M17.9 and GERD (gastroesophageal reflux disease) K21.9 [place] [id number] [place] [address] Oct, Izzy albicans infection B37.9 [place] [address] [address] Sep, [place] [address] [place] [id number] [place] [address] Sep, UTI (urinary tract infection) N39.0 ; Benign essential HTN I10 ; 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 ; Controlled restless leg syndrome G25.81 ; Edema extremities R60.0 ; SI (stress incontinence), female N39.3 and 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 [place] [address] [place] [id number] [place] [address] 12 Sep, 2015 UTI (urinary tract infection) N39.0 [place] [address] [place] [id number] [place] [address] 11 Aug, 2015 Pre-op evaluation Z01.818 [place] [address] [address] Aug, [place] [address] [place] [id number] [place] [address] 08 Aug, 2015 [place] [address] [address] 14 Jul, 2015 Right hip pain M25.551 ; 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 and Knee pain M25.569 [place] [id number] [place] [address] Jul, [place] [address] [place] [id number] [place] [address] Jun, Knee pain M25.569 ; 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 and Degenerative arthritis of knee M17.9 [place] [id number] [place] [address] Jun, [place] [address] [place] [id number] [place] [address] 30 Apr, 2015 Diabetes mellitus 250.00 ; Influenza vaccine administered V04.81 ; Incontinence 788.30 ; Restless legs syndrome 333.94 ; Sciatica 724.3 ; Essential hypertension, benign 401.1 ; Edema 782.3 and Depression (emotion) 311 [place] [address] [place] [id number] [place] [address] 24 Mar, 2015 Pain in joint, lower leg 719.46 and Sciatica 724.[address] [place] [address] Mar, [facility] [address] [id number] [address] Feb, Pain in joint, site unspecified 719.40 ; Other urinary incontinence 788.39 ; Pain in joint, lower leg 719.46 ; Edema 782.3 ; Sciatica 724.3 ; Essential hypertension, benign 401.1 ; Depression 311 ; Diabetes mellitus 250.00 ; Incontinence 788.30 and Restless legs syndrome 333.94 [facility] [address] [id number] [address] Feb, [facility] [address] [place] [id number] [place] [address] Nov, [facility] [address] [place] [id number] [place] [address] Nov, [facility] [address] [place] [id number] [place] [address] Oct, [facility] [address] [place] [address] Oct, [facility] [address] [place] [id number] [place] [address] Aug, [facility] [address], [place] [address] Aug, [facility] [address], [place] [address] Aug, [facility] [address], [place] [address] Aug, [facility] [address] [place] [id number] [place] [address] Aug, [facility] [address], [place] [address] Aug, [facility] [address] [place] [address] Jun, [facility] [place] [facility] [address] [id number] [place] [address] Jun, [facility] [place] [facility] [address] [id number] [place] [address] Jun, [facility] [place] [facility] [address] [id number] [place] [address] Jun, [facility] [place] [facility] [address] [id number] [place] [address] Jun, [facility] [place] [facility] [address] [id number] [place] [address] Jun, [facility] [place] [facility] [address] [id number] [place] [address] May, [facility] [place] [facility] [address] [id number] [place] [address] May, [facility] [place] [facility] [address] [id number] [place] [address] May, [facility] [place] [facility] [address] [id number] [place] [address] May, [facility] [place] [facility] [address] [id number] [place] [address] Apr, [facility] [place] [facility] [address] [id number] [place] [address] Apr, [facility] [place] [facility] [address] [id number] [address] Apr, [facility] [place] [facility] [address] [id number] [place] [address] Apr, [facility] [place] [facility] [address] [id number] [place] [address] Mar, [facility] [place] [facility] [address] [id number] [place] [address] Mar, [facility] [place] [facility] [address] [id number] [place] [address] Mar, [facility] [place] [facility] [address] [id number] [place] [address] Mar, [facility] [place] [facility] [address] [id number] [place] [address] Mar, [facility] [place] [facility] [address] [id number] [place] [address] Mar, [facility] [place] [facility] [address] [id number] [place] [address] Feb, [facility] [place] [facility] [address] [id number] [place] [address] Feb, [facility] [place] [facility] [address] [id number] [place] [address] Jan, [facility] [place] [facility] [address] [id number] [place] [address] Jan, [facility] [place] [facility] [address] [id number] [place] [address] Jan, [facility] [place] [facility] [address] [id number] [place] [address] Jan, [facility] [place] [facility] [address] [id number] [place] [address] December, [facility] [place] [facility] [address] [id number] [place] [address] December, [facility] [place] [facility] [address] [id number] [place] [address] December, [facility] [place] [facility] [address] [id number] [place] [address] December, [facility] [place] [facility] [address] [id number] [place] [address] December, [facility] [place] [facility] [address] [id number] [place] [address] December, [facility] [place] [facility] [address] [id number] [place] [address] December, [facility] [place] [facility] [address] [id number] [place] [address] December, [facility] [place] [facility] [address] [id number] [place] [address] Nov, [facility] [place] [facility] [address] [id number] [place] [address] Nov, [facility] [place] [facility] [address] [id number] [place] [address] Nov, [facility] [place] [facility] [address] [id number] [place] [address] Nov, [facility] [place] [facility] [address] [id number] [place] [address] Oct, [facility] [place] [facility] [address] [id number] [place] [address] Oct, [facility] [place] [facility] [address] [id number] [place] [address] Oct, [facility] [place] [facility] [address] [id number] [place] [address] Oct, [facility] [place] [facility] [address] [id number] [place] [address] Oct, [facility] [place] [facility] [address] [id number] [place] [address] Oct, [facility] [place] [facility] [address] [id number] [place] [address] Oct, [facility] [place] [facility] [address] [id number] [place] [address] Oct, [facility] [place] [facility] [address] [id number] [place] [address] Sep, [facility] [place] [facility] [address] [id number] [place] [address] Sep, [facility] [address] [id number] [place] [address] Sep, [facility] [place] [facility] [address] [id number] [place] [address] Sep, [facility] [place] [facility] [address] [facility] [id number] [place] [address] Sep, [facility] [place] [facility] [address] [id number] [place] [address] Aug, [facility] [address] [id number] [place] [address] Aug, [facility] [place] [facility] [address] [id number] [place] [address] Jul, [facility] [address] [id number] [place] [address] Jul, [facility] [place] [facility] [address] [id number] [place] [address] Jul, [facility] [address] [facility] [id number] [place] [address] Jul, [facility] [place] [facility] [address] [facility] [id number] [place] [address] Jul, [facility] [place] [facility] [address] [facility] [id number] [place] [address] Jul, [facility] [place] [facility] [address] [id number] [place] [address] Jul, [facility] [place] [facility] [address] [id number] [place] [address] Jun, [facility] [place] [facility] [address] [id number] [place] [address] Jun, [facility] [place] [facility] [address] [facility] [id number] [place] [address] Jun, [facility] [place] [facility] [address] [id number] [place] [address] Jun, [facility] [place] [facility] [address] [id number] [place] [address] Jun, [facility] [place] [facility] [address] [id number] [place] [address] Jun, [facility] [place] [facility] [address] [id number] [place] [address] Jun, [facility] [place] [facility] [address] [id number] [place] [address] Jun, [facility] [place] [facility] [address] [id number] [place] [address] Jun, [facility] [place] [facility] [address] [id number] [place] [address] Jun, [facility] [place] [facility] [address] [id number] [place] [address] Jun, [facility] [place] [facility] [address] [id number] [place] [address] Jun, [facility] [place] [facility] [address] [id number] [place] [address] Jun, [facility] [place] [facility] [address] [id number] [place] [address] May, [facility] [place] [facility] [address] [id number] [place] [address] May, [facility] [place] [facility] [address] [id number] [place] [address] May, [facility] [place] [facility] [address] [id number] [place] [address] May, [facility] [place] [facility] [address] [id number] [place] [address] May, [facility] [place] [facility] [address] [id number] [place] [address] May, [facility] [place] [facility] [address] [id number] [place] [address] 10 May, 2013 [facility] [place] [facility] [address] [id number] [place] [address] 10 May, 2013 [facility] [place] [facility] [address] [id number] [place] [address] May, [facility] [place] [facility] [address] [id number] [place] [address] 23 Apr, 2013 [facility] [place] [facility] [address] [id number] [place] [address] 21 Apr, 2013 [facility] [place] [facility] [address] [id number] [place] [address] Apr, [facility] [place] [facility] [address] [id number] [place] [address] Apr, [facility] [place] [facility] [address] [id number], [place] [address] 15 Mar, 2013 [facility] [place] [facility] [address] [id number], [place] [address] 14 Mar, 2013 [facility] [place] [facility] [address] [id number], [place] [address] Mar, [facility] [place] [facility] [address] [id number], [place] [address] Jan, [facility] [place] [facility] [address] [id number], [place] [address] Jan, [facility] [place] [facility] [address] [id number], [place] [address] Jan, [facility] [place] [facility] [address] [id number], [place] [address] Jan, [facility] [place] [facility] [address] [id number], [place] [address] December, [facility] [place] [facility] [address] [id number] [place] [address] 11 Nov, 2012 [facility] [address] [id number] [place] [address] 10 Nov, 2012 [facility] [address] [id number] [place] [address] 19 Sep, 2012 [facility] [address] [id number] [place] [address] 13 Sep, 2012 [facility] [facility] [address] [id number] [place] [address] Sep, [facility] [address] [id number] [place] [address] 29 Aug, 2012 [facility] [address] [id number] [place] [address] 18 Aug, 2012 [facility] [address] [id number] [place] [address] 17 Aug, 2012 [facility] [address] [id number] [place] [address] 16 Aug, 2012 [facility] [address] [id number] [place] [address] 16 Aug, 2012 [facility] [address] [id number] [place] [address] 15 Aug, 2012 [facility] [address] [id number] [place] [address] Aug, [facility] [address] [id number] [place] [address] Jul, [facility] [address] [id number] [place] [address] Jul, [facility] [address] [id number] [place] [address] Jun, [facility] [address] [id number] [place] [address] Jun, [facility] [place] [facility] [address] [id number] [place] [address] May, [facility] [place] [facility] [address] [id number] [place] [address] May, [facility] [place] [facility] [address] [id number] [place] [address] May, [facility] [place] [facility] [address] [id number] [place] [address] May, [facility] [place] [facility] [address] [id number] [place] [address] 26 Apr, 2012 [facility] [place] [facility] [address] [id number] [place] [address] 24 Apr, 2012 [facility] [place] [facility] [address] [id number] [place] [address] 21 Apr, 2012 [facility] [place] [facility] [address] [id number] [place] [address] 20 Apr, 2012 [facility] [place] [facility] [address] [id number] [place] [address] 20 Apr, 2012 [facility] [place] [facility] [address] [id number], [place] [address] 19 Apr, 2012 [facility] [place] [facility] [address] [id number], [place] [address] Apr, [facility] [place] [facility] [address] [id number], [place] [address] Mar, [facility] [place] [facility] [address] [id number] [place] [address] December, [facility] [place] [facility] [address] [id number], [place] [address] December, [facility] [place] [facility] [address] [id number], [place] [address] December, [facility] [place] [facility] [address] [id number], [place] [address] 10 Sep, 2011 [facility] [address] [id number], [place] [address] Sep, [facility] [address] [id number], [place] [address] Aug, [facility] [id number], [place] [address] Aug, [facility] [id number], [place] [address] Aug, [facility] [id number], [place] [address] Jun, [facility] [id number], [place] [address] Jun, [facility] [id number], [place] [address] Jun, [facility] [id number], [place] [address] Jun, [facility] [id number], [place] [address] Mar, [facility] [address] [id number], [place] [address] Jan, [facility] [address] [id number], [place] [address] December, IMMUNIZATIONS No Known Immunizations SOCIAL HISTORY Never Assessed REASON FOR VISIT EMR-[facility] PLAN OF CARE VITAL SIGNS MEDICATIONS [...]
--- OUTSIDE RECORDS SUMMARY | 2019-03-05 10:45 | XMS REPORT ---
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 Name Role Phone Migration, Doctor Unavailable Unavailable PROBLEMS Type Condition ICD9-CM Code KUG65-WU Code Onset Dates Condition Status SNOMED Code Problem Controlled restless leg syndrome G25.81 Active 86828077 Problem GERD (gastroesophageal reflux disease) K21.9 Active 301846536 Problem Mild single current episode of major depressive disorder F32.0 Active 31846809 Problem Recurrent major depressive disorder, in full remission F33.42 Active 35392660 Problem Benign essential HTN I10 Active 1383644 Problem Low back pain M54.5 Active 553090391 Problem Morbid (severe) obesity due to excess calories E66.01 Active 843932727 Problem OAB (overactive bladder) N32.81 Active 406933749 Problem Other chronic pain G89.29 Active 60927599 Problem Type 2 diabetes mellitus without complication, without long-term current use of insulin E11.9 Active 499242868 ALLERGIES No Information ENCOUNTERS Encounter Location Date Diagnosis [place] [id number] [place] [address] Nov, Degenerative arthritis of knee M17.9 [place] [id number] [place] [address] Oct, Type 2 diabetes mellitus without complication, without long-term current use of insulin E11.9 ; Low back pain M54.5 ; Other chronic pain G89.29 ; Recurrent major depressive disorder, in full remission F33.42 and Benign essential HTN I10 [place] [address] [place] [id number] [place] [address] Oct, Degenerative arthritis of knee M17.9 [place] [address] [place] [address] Sep, Degenerative arthritis of knee M17.9 [place] [address] [place] [id number] [place] [address] Sep, [facility] [address] [address] Aug, Degenerative arthritis of knee M17.9 [facility] [address] [place] [id number] [place] [address] Aug, [facility] [address] [address] Jul, Dysuria R30.0 ; Acute cystitis without hematuria N30.00 ; Vaginal odor N89.8 and BMI 40.0-44.9, adult Z68.41 [place] [address] [address] Jul, [place] [address] [address] Jul, Degenerative arthritis of knee M17.9 [place] [address] [place] [id number] [place] [address] Jun, Degenerative arthritis of knee M17.9 [place] [address] [address] Jun, Degenerative arthritis of knee M17.9 [place] [address] [place] [id number] [place] [address] Jun, Benign essential HTN I10 ; Type 2 diabetes mellitus without complication, without long-term current use of insulin E11.9 ; Acute cystitis without hematuria N30.00 ; Low back pain M54.5 ; Other chronic pain G89.29 and BMI 40.0- 44.9, adult Z68.41 [place] [address] [address] May, Neuroma of foot D36.13 and 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 [place] [address] [address] May, Degenerative arthritis of knee M17.9 [facility] [address] [address] May, Encounter for immunization Z23 [facility] [address] [place] [id number] [place] [address] Apr, [facility] [address] [place] [id number] [place] [address] Apr, Degenerative arthritis of knee M17.9 [facility] [address] [place] [id number] [place] [address] Mar, Degenerative arthritis of knee M17.9 [place] [address] [place] [id number] [place] [address] Mar, Type 2 diabetes mellitus with diabetic peripheral angiopathy without gangrene, without long-term current use of insulin E11.51 ; Benign essential HTN I10 ; Degenerative arthritis of knee M17.9 and Mild single current episode of major depressive disorder F32.0 [place] [address] [place] [id number] [place] [address] Feb, [place] [address] [place] [id number] [place] [address] Feb, Degenerative arthritis of knee M17.9 [place] [address] [place] [id number] [place] [address] Feb, [place] [address] [place] [id number] [place] [address] Jan, Degenerative arthritis of knee M17.9 [place] [address] [place] [id number] [place] [address] Jan, Herpes zoster without complication B02.9 and BMI 40.0-44.9, adult Z68.41 [place] [address] [place] [id number] [place] [address] December, Degenerative arthritis of knee M17.9 [place] [address] [place] [id number] [place] [address] Nov, Benign essential HTN I10 ; Type [...] Z68.41 and GERD (gastroesophageal reflux disease) K21.9 [place] [address] [place] [id number] [place] [address] Nov, [place] [address] [address] Oct, Degenerative arthritis of knee M17.9 [place] [address] [address] Oct, [place] [address] [address] Oct, Type 2 diabetes mellitus with diabetic peripheral angiopathy without gangrene, without long-term current use of insulin E11.51 and Controlled substance agreement signed Z79.899 [place] [address] [place] [id number] [place] [address] Oct, Degenerative arthritis of knee M17.9 [place] [address] [place] [id number] [place] [address] Sep, Type 2 diabetes mellitus with diabetic peripheral angiopathy without gangrene, without long-term current use of insulin E11.51 ; Benign essential HTN I10 ; BMI 40.0-44.9, adult Z68.41 ; Mild single current episode of major depressive disorder F32.0 ; OAB (overactive bladder) N32.81 ; Degenerative arthritis of knee M17.9 and GERD (gastroesophageal reflux disease) K21.9 [place] [address] [place] [id number] [place] [address] Aug, Joint pain and swelling due to Lyme disease A69.20 [place] [address] [place] [id number] [place] [address] Jun, [place] [address] [place] [id number] [place] [address] May, 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 ; Benign essential HTN I10 ; 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 ; Body mass index (BMI) of 40.0-44.9 in adult Z68.41 and Morbid (severe) obesity due to excess calories E66.01 [place] [address] [place] [id number] [place] [address] May, Encounter for immunization Z23 [place] [address] [place] [id number] [place] [address] May, 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 [place] [address] [place] [id number] [place] [address] Mar, Mild single current episode of major depressive disorder F32.0 [place] [address] [place] [id number] [place] [address] Mar, Joint pain and swelling due to Lyme disease A69.20 [place] [address] [place] [id number] [place] [address] Feb, Izzy infection B37.9 [place] [address] [place] [id number] [place] [address] Jan, Insect bite (nonvenomous) of abdominal wall, initial encounter S30.861A and Joint pain and swelling due to Lyme disease A69.20 [place] [address] [place] [id number] [place] [address] Jan, [place] [address] [place] [id number] [place] [address] Sep, Mild single current episode of major depressive disorder F32.0 and 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 [facility] [address] [place] [address] 13 Sep, 2016 Controlled restless leg syndrome G25.81 and Cramp of both lower extremities R25.2 [facility] [address] [place] [id number] [address] Aug, 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 ; Controlled restless leg syndrome G25.81 ; SI (stress incontinence), female N39.3 ; Benign essential HTN I10 ; 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 ; GERD (gastroesophageal reflux disease) K21.9 ; Screening cholesterol level Z13.220 and Mild single current episode of major depressive disorder F32.0 [place] [address] [place] [id number] [place] [address] Aug, [place] [address] [place] [id number] [place] [address] May, [place] [address] [place] [id number] [place] [address] May, Encounter for immunization Z23 [place] [address] [address] Apr, [place] [address] [place] [id number] [place] [address] Apr, [place] [address] [place] [id number] [place] [address] 27 Apr, 2016 SAMANTHA (secretory otitis media), right H65.91 ; 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 ; Controlled restless leg syndrome G25.81 ; Edema extremities R60.0 ; SI (stress incontinence), female N39.3 ; Benign essential HTN I10 ; Degenerative arthritis of knee M17.9 and Major depressive disorder with single episode, remission status unspecified F32.9 [facility] [address] [place] [id number] [place] [address] 19 Apr, 2016 OME (otitis media with effusion), right H65.91 [facility] [address] [address] Mar, [place] [address] [place] [id number] [place] [address] Mar, 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 ; Controlled restless leg syndrome G25.81 ; SI (stress incontinence), female N39.3 ; Benign essential HTN I10 ; GERD (gastroesophageal reflux disease) K21.9 ; Knee pain M25.569 and Major depressive disorder with single episode, remission status unspecified F32.9 [place] [address] [place] [address] Mar, [place] [address] [place] [id number] [place] [address] Mar, [place] [address] [place] [id number] [place] [address] Jan, Pre-op exam Z01.818 [place] [address] [address] Oct, Urinary tract infection N39.0 ; Benign essential HTN I10 ; Controlled restless leg syndrome G25.81 ; Edema extremities R60.0 ; Degenerative arthritis of knee M17.9 and GERD (gastroesophageal reflux disease) K21.9 [place] [address] [place] [address] Oct, Izzy albicans infection B37.9 [place] [address] [address] Sep, [place] [address] [place] [id number] [place] [address] Sep, UTI (urinary tract infection) N39.0 ; Benign essential HTN I10 ; 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 ; Controlled restless leg syndrome G25.81 ; Edema extremities R60.0 ; SI (stress incontinence), female N39.3 and 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 [place] [address] [place] [id number] [place] [address] 12 Sep, 2015 UTI (urinary tract infection) N39.0 [place] [address] [place] [id number] [place] [address] 11 Aug, 2015 Pre-op evaluation Z01.818 [place] [address] [address] Aug, [place] [address] [place] [id number] [place] [address] 08 Aug, 2015 [place] [address] [address] 14 Jul, 2015 Right hip pain M25.551 ; 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 and Knee pain M25.569 [place] [id number] [place] [address] Jul, [place] [address] [place] [id number] [place] [address] Jun, Knee pain M25.569 ; 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 and Degenerative arthritis of knee M17.9 [place] [id number] [place] [address] Jun, [place] [address] [place] [id number] [place] [address] 30 Apr, 2015 Diabetes mellitus 250.00 ; Influenza vaccine administered V04.81 ; Incontinence 788.30 ; Restless legs syndrome 333.94 ; Sciatica 724.3 ; Essential hypertension, benign 401.1 ; Edema 782.3 and Depression (emotion) 311 [place] [address] [place] [id number] [place] [address] 24 Mar, 2015 Pain in joint, lower leg 719.46 and Sciatica 724.[address] [place] [address] Mar, [facility] [address] [place] [id number] [address] Feb, Pain in joint, site unspecified 719.40 ; Other urinary incontinence 788.39 ; Pain in joint, lower leg 719.46 ; Edema 782.3 ; Sciatica 724.3 ; Essential hypertension, benign 401.1 ; Depression 311 ; Diabetes mellitus 250.00 ; Incontinence 788.30 and Restless legs syndrome 333.94 [facility] [address] [place] [id number] [address] Feb, [facility] [address] [place] [id number] [place] [address] Nov, [facility] [address] [place] [id number] [place] [address] Nov, [facility] [address] [place] [id number] [place] [address] Oct, [facility] [address] [place] [address] Oct, [facility] [address] [place] [id number] [place] [address] Aug, [facility] [address] [address] Aug, [facility] [address] [address] Aug, [facility] [address] [address] Aug, [facility] [address] [place] [id number] [place] [address] Aug, [facility] [address] [address] Aug, [facility] [id number] [place] [address] Jun, [facility] [place] [facility] [address] [id number] [place] [address] Jun, [facility] [place] [facility] [address] [id number] [place] [address] Jun, [facility] [place] [facility] [address] [id number] [place] [address] Jun, [facility] [place] [facility] [address] [id number] [place] [address] Jun, [facility] [place] [facility] [address] [id number] [place] [address] Jun, [facility] [place] [facility] [address] [id number] [place] [address] May, [facility] [place] [facility] [address] [id number] [place] [address] May, [facility] [place] [facility] [address] [id number] [place] [address] May, [facility] [place] [facility] [address] [id number] [place] [address] May, [facility] [place] [facility] [address] [id number] [place] [address] Apr, [facility] [place] [facility] [address] [id number] [place] [address] Apr, [facility] [place] [facility] [address] [id number] [address] Apr, [facility] [place] [facility] [address] [id number] [place] [address] Apr, [facility] [place] [facility] [address] [id number] [place] [address] Mar, [facility] [place] [facility] [address] [id number] [place] [address] Mar, [facility] [place] [facility] [address] [id number] [place] [address] Mar, [facility] [place] [facility] [address] [id number] [place] [address] Mar, [facility] [place] [facility] [address] [id number] [place] [address] Mar, [facility] [place] [facility] [address] [id number] [place] [address] Mar, [facility] [place] [facility] [address] [id number] [place] [address] Feb, [facility] [place] [facility] [address] [id number] [place] [address] Feb, [facility] [place] [facility] [address] [id number] [place] [address] Jan, [facility] [place] [facility] [address] [id number] [place] [address] Jan, [facility] [place] [facility] [address] [id number] [place] [address] Jan, [facility] [place] [facility] [address] [id number] [place] [address] Jan, [facility] [place] [facility] [address] [id number] [place] [address] December, [facility] [place] [facility] [address] [id number] [place] [address] December, [facility] [place] [facility] [address] [id number] [place] [address] December, [facility] [place] [facility] [address] [id number] [place] [address] December, [facility] [place] [facility] [address] [id number] [place] [address] December, [facility] [place] [facility] [address] [id number] [place] [address] December, [facility] [place] [facility] [address] [id number] [place] [address] December, [facility] [place] [facility] [address] [id number] [place] [address] December, [facility] [place] [facility] [address] [id number] [place] [address] Nov, [facility] [place] [facility] [address] [id number] [place] [address] Nov, [facility] [place] [facility] [address] [id number] [place] [address] Nov, [facility] [place] [facility] [address] [id number] [place] [address] Nov, [facility] [place] [facility] [address] [id number] [place] [address] Oct, [facility] [place] [facility] [address] [id number] [place] [address] Oct, [facility] [place] [facility] [address] [id number] [place] [address] Oct, [facility] [place] [facility] [address] [id number] [place] [address] Oct, [facility] [place] [facility] [address] [id number] [place] [address] Oct, [facility] [place] [facility] [address] [id number] [place] [address] Oct, [facility] [place] [facility] [address] [id number] [place] [address] Oct, [facility] [place] [facility] [address] [id number] [place] [address] Oct, [facility] [place] [facility] [address] [id number] [place] [address] Sep, [facility] [place] [facility] [address] [id number] [place] [address] Sep, [facility] [address] [id number] [place] [address] Sep, [facility] [place] [facility] [address] [id number] [place] [address] Sep, [facility] [place] [facility] [address] [facility] [id number] [place] [address] Sep, [facility] [place] [facility] [address] [id number] [place] [address] Aug, [facility] [address] [id number] [place] [address] Aug, [facility] [place] [facility] [address] [id number] [place] [address] Jul, [facility] [address] [id number] [place] [address] Jul, [facility] [place] [facility] [address] [id number] [place] [address] Jul, [facility] [address] [facility] [id number] [place] [address] Jul, [facility] [place] [facility] [address] [facility] [id number] [place] [address] Jul, [facility] [place] [facility] [address] [facility] [id number] [place] [address] Jul, [facility] [place] [facility] [address] [id number] [place] [address] Jul, [facility] [place] [facility] [address] [id number] [place] [address] Jun, [facility] [place] [facility] [address] [id number] [place] [address] Jun, [facility] [place] [facility] [address] [facility] [id number] [place] [address] Jun, [facility] [place] [facility] [address] [id number] [place] [address] Jun, [facility] [place] [facility] [address] [id number] [place] [address] Jun, [facility] [place] [facility] [address] [id number] [place] [address] Jun, [facility] [place] [facility] [address] [id number] [place] [address] Jun, [facility] [place] [facility] [address] [id number] [place] [address] Jun, [facility] [place] [facility] [address] [id number] [place] [address] Jun, [facility] [place] [facility] [address] [id number] [place] [address] Jun, [facility] [place] [facility] [address] [id number] [place] [address] Jun, [facility] [place] [facility] [address] [id number] [place] [address] Jun, [facility] [place] [facility] [address] [id number] [place] [address] Jun, [facility] [place] [facility] [address] [id number] [place] [address] May, [facility] [place] [facility] [address] [id number] [place] [address] May, [facility] [place] [facility] [address] [id number] [place] [address] May, [facility] [place] [facility] [address] [id number] [place] [address] May, [facility] [place] [facility] [address] [id number] [place] [address] May, [facility] [place] [facility] [address] [id number] [place] [address] May, [facility] [place] [facility] [address] [id number] [place] [address] 10 May, 2013 [facility] [place] [facility] [address] [id number] [place] [address] 10 May, 2013 [facility] [place] [facility] [address] [id number] [place] [address] May, [facility] [place] [facility] [address] [id number] [place] [address] 23 Apr, 2013 [facility] [place] [facility] [address] [id number] [place] [address] 21 Apr, 2013 [facility] [place] [facility] [address] [id number] [place] [address] Apr, [facility] [place] [facility] [address] [id number] [place] [address] Apr, [facility] [place] [facility] [address] [id number], [place] [address] 15 Mar, 2013 [facility] [place] [facility] [address] [id number], [place] [address] 14 Mar, 2013 [facility] [place] [facility] [address] [id number], [place] [address] Mar, [facility] [place] [facility] [address] [id number], [place] [address] Jan, [facility] [place] [facility] [address] [id number], [place] [address] Jan, [facility] [place] [facility] [address] [id number], [place] [address] Jan, [facility] [place] [facility] [address] [id number], [place] [address] Jan, [facility] [place] [facility] [address] [id number], [place] [address] December, [facility] [place] [facility] [address] [id number] [place] [address] 11 Nov, 2012 [facility] [address] [id number] [place] [address] 10 Nov, 2012 [facility] [address] [id number] [place] [address] 19 Sep, 2012 [facility] [address] [id number] [place] [address] 13 Sep, 2012 [facility] [address] [id number] [place] [address] Sep, [facility] [address] [id number] [place] [address] 29 Aug, 2012 [facility] [address] [id number] [place] [address] 18 Aug, 2012 [facility] [address] [id number] [place] [address] 17 Aug, 2012 [facility] [address] [id number] [place] [address] 16 Aug, 2012 [facility] [address] [id number] [place] [address] 16 Aug, 2012 [facility] [address] [id number] [place] [address] 15 Aug, 2012 [facility] [address] [id number] [place] [address] Aug, [facility] [address] [id number] [place] [address] Jul, [facility] [address] [id number] [place] [address] Jul, [facility] [address] [id number] [place] [address] Jun, [facility] [address] [id number] [place] [address] Jun, [facility] [place] [facility] [address] [id number] [place] [address] May, [facility] [place] [facility] [address] [id number] [place] [address] May, [facility] [place] [facility] [address] [id number] [place] [address] May, [facility] [place] [facility] [address] [id number] [place] [address] May, [facility] [place] [facility] [address] [id number] [place] [address] 26 Apr, 2012 [facility] [place] [facility] [address] [id number] [place] [address] 24 Apr, 2012 [facility] [place] [facility] [address] [id number] [place] [address] 21 Apr, 2012 [facility] [place] [facility] [address] [id number] [place] [address] 20 Apr, 2012 [facility] [place] [facility] [address] [id number] [place] [address] 20 Apr, 2012 [facility] [place] [facility] [address] [id number], [place] [address] 19 Apr, 2012 [facility] [place] [facility] [address] [id number], [place] [address] Apr, [facility] [place] [facility] [address] [id number], [place] [address] Mar, [facility] [place] [facility] [address] [id number] [place] [address] December, [facility] [place] [facility] [address] [id number], [place] [address] December, [facility] [place] [facility] [address] [id number], [place] [address] December, [facility] [place] [facility] [address] [id number], [place] [address] 10 Sep, 2011 [facility] [address] [id number] [address] Sep, [facility] [address] [id number] [address] Aug, [facility] [id number] [address] Aug, [facility] [id number] [address] Aug, [facility] [id number] [address] Jun, [facility] [id number], [place] [address] Jun, [facility] [id number] [address] Jun, [facility] [id number] [address] Jun, [facility] [id number] [address] Mar, [facility] [address] [id number] [address] Jan, [facility] [address] [id number] [address] December, IMMUNIZATIONS No Known Immunizations SOCIAL HISTORY Never Assessed REASON FOR VISIT EMR-[facility] [place] PLAN OF CARE VITAL SIGNS MEDICATIONS Unknown [...]
--- OUTSIDE RECORDS SUMMARY | 2019-03-05 10:46 | XMS REPORT ---
Author Author Migration, Doctor Organization [facility] Address Unknown Phone Unavailable Care Team Providers Care Lining Maker Name Role Phone Migration, Doctor Unavailable Unavailable PROBLEMS Type Condition ICD9-CM Code [id number] Code Onset Dates Condition Status SNOMED Code Problem Controlled restless leg syndrome G25.81 Active 22459844 Problem GERD (gastroesophageal reflux disease) K21.9 Active 473068947 Problem Mild single current episode of major depressive disorder F32.0 Active 14096573 Problem Recurrent major depressive disorder, in full remission F33.42 Active 73585206 Problem Benign essential HTN I10 Active 8448126 Problem Low back pain M54.5 Active 146473014 Problem Morbid (severe) obesity due to excess calories E66.01 Active 145366413 Problem OAB (overactive bladder) N32.81 Active 117775974 Problem Other chronic pain G89.29 Active 75738504 Problem Type 2 diabetes mellitus without complication, without long-term current use of insulin E11.9 Active 703155215 ALLERGIES No Information ENCOUNTERS Encounter Location Date Diagnosis [place] [id number] [place] [address] Nov, Degenerative arthritis of knee M17.9 [place] [id number] [place] [address] Oct, Type 2 diabetes mellitus without complication, without long-term current use of insulin E11.9 ; Low back pain M54.5 ; Other chronic pain G89.29 ; Recurrent major depressive disorder, in full remission F33.42 and Benign essential HTN I10 [place] [address] [place] [id number] [place] [address] Oct, Degenerative arthritis of knee M17.9 [place] [address] [place] [address] Sep, Degenerative arthritis of knee M17.9 [place] [address] [place] [id number] [place] [address] Sep, [facility] [address] [address] Aug, Degenerative arthritis of knee M17.9 [facility] [address] [place] [id number] [place] [address] Aug, [facility] [address] [address] Jul, Dysuria R30.0 ; Acute cystitis without hematuria N30.00 ; Vaginal odor N89.8 and BMI 40.0-44.9, adult Z68.41 [place] [address] [address] Jul, [place] [address] [address] Jul, Degenerative arthritis of knee M17.9 [place] [address] [place] [id number] [place] [address] Jun, Degenerative arthritis of knee M17.9 [place] [address] [address] Jun, Degenerative arthritis of knee M17.9 [place] [address] [place] [id number] [place] [address] Jun, Benign essential HTN I10 ; Type 2 diabetes mellitus without complication, without long-term current use of insulin E11.9 ; Acute cystitis without hematuria N30.00 ; Low back pain M54.5 ; Other chronic pain G89.29 and BMI 40.0- 44.9, adult Z68.41 [place] [address] [address] May, Neuroma of foot D36.13 and 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 [place] [address] [address] May, Degenerative arthritis of knee M17.9 [facility] [address] [address] May, Encounter for immunization Z23 [facility] [address] [place] [id number] [place] [address] Apr, [facility] [address] [place] [id number] [place] [address] Apr, Degenerative arthritis of knee M17.9 [facility] [address] [place] [id number] [place] [address] Mar, Degenerative arthritis of knee M17.9 [place] [address] [address] [id number] [place] [address] Mar, Type 2 diabetes mellitus with diabetic peripheral angiopathy without gangrene, without long-term current use of insulin E11.51 ; Benign essential HTN I10 ; Degenerative arthritis of knee M17.9 and Mild single current episode of major depressive disorder F32.0 [place] [address] [place] [id number] [place] [address] Feb, [place] [address] [place] [id number] [place] [address] Feb, Degenerative arthritis of knee M17.9 [place] [address] [place] [id number] [place] [address] Feb, [place] [address] [place] [id number] [place] [address] Jan, Degenerative arthritis of knee M17.9 [place] [address] [place] [id number] [place] [address] Jan, Herpes zoster without complication B02.9 and BMI 40.0-44.9, adult Z68.41 [place] [address] [place] [id number] [place] [address] December, Degenerative arthritis of knee M17.9 [place] [address] [place] [id number] [place] [address] Nov, Benign essential HTN I10 ; Type [...] Z68.41 and GERD (gastroesophageal reflux disease) K21.9 [place] [address] [place] [id number] [place] [address] Nov, [place] [address] [address] Oct, Degenerative arthritis of knee M17.9 [place] [address] [address] Oct, [place] [address] [address] Oct, Type 2 diabetes mellitus with diabetic peripheral angiopathy without gangrene, without long-term current use of insulin E11.51 and Controlled substance agreement signed Z79.899 [place] [address] [place] [id number] [place] [address] Oct, Degenerative arthritis of knee M17.9 [place] [address] [place] [id number] [place] [address] Sep, Type 2 diabetes mellitus with diabetic peripheral angiopathy without gangrene, without long-term current use of insulin E11.51 ; Benign essential HTN I10 ; BMI 40.0-44.9, adult Z68.41 ; Mild single current episode of major depressive disorder F32.0 ; OAB (overactive bladder) N32.81 ; Degenerative arthritis of knee M17.9 and GERD (gastroesophageal reflux disease) K21.9 [place] [address] [place] [id number] [place] [address] Aug, Joint pain and swelling due to Lyme disease A69.20 [place] [address] [place] [id number] [place] [address] Jun, [place] [address] [place] [id number] [place] [address] May, 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 ; Benign essential HTN I10 ; 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 ; Body mass index (BMI) of 40.0-44.9 in adult Z68.41 and Morbid (severe) obesity due to excess calories E66.01 [place] [address] [place] [id number] [place] [address] May, Encounter for immunization Z23 [place] [address] [place] [id number] [place] [address] May, 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 [place] [address] [place] [id number] [place] [address] Mar, Mild single current episode of major depressive disorder F32.0 [place] [address] [place] [id number] [place] [address] Mar, Joint pain and swelling due to Lyme disease A69.20 [place] [address] [place] [id number] [place] [address] Feb, Izzy infection B37.9 [place] [address] [place] [id number] [place] [address] Jan, Insect bite (nonvenomous) of abdominal wall, initial encounter S30.861A and Joint pain and swelling due to Lyme disease A69.20 [place] [address] [place] [id number] [place] [address] Jan, [place] [address] [place] [id number] [place] [address] Sep, Mild single current episode of major depressive disorder F32.0 and 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 [facility] [address] [place] [address] 13 Sep, 2016 Controlled restless leg syndrome G25.81 and Cramp of both lower extremities R25.2 [facility] [address] [id number] [address] Aug, 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 ; Controlled restless leg syndrome G25.81 ; SI (stress incontinence), female N39.3 ; Benign essential HTN I10 ; 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 ; GERD (gastroesophageal reflux disease) K21.9 ; Screening cholesterol level Z13.220 and Mild single current episode of major depressive disorder F32.0 [place] [address] [place] [id number] [place] [address] Aug, [place] [address] [place] [id number] [place] [address] May, [place] [address] [place] [id number] [place] [address] May, Encounter for immunization Z23 [place] [address] [address] Apr, [place] [address] [place] [id number] [place] [address] Apr, [place] [address] [place] [id number] [place] [address] 27 Apr, 2016 SAMANTHA (secretory otitis media), right H65.91 ; 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 ; Controlled restless leg syndrome G25.81 ; Edema extremities R60.0 ; SI (stress incontinence), female N39.3 ; Benign essential HTN I10 ; Degenerative arthritis of knee M17.9 and Major depressive disorder with single episode, remission status unspecified F32.9 [facility] [address] [place] [id number] [place] [address] 19 Apr, 2016 OME (otitis media with effusion), right H65.91 [facility] [address] [address] Mar, [place] [address] [place] [id number] [place] [address] Mar, 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 ; Controlled restless leg syndrome G25.81 ; SI (stress incontinence), female N39.3 ; Benign essential HTN I10 ; GERD (gastroesophageal reflux disease) K21.9 ; Knee pain M25.569 and Major depressive disorder with single episode, remission status unspecified F32.9 [place] [address] [place] [address] Mar, [place] [address] [place] [id number] [place] [address] Mar, [place] [address] [place] [id number] [place] [address] Jan, Pre-op exam Z01.818 [place] [address] [address] Oct, Urinary tract infection N39.0 ; Benign essential HTN I10 ; Controlled restless leg syndrome G25.81 ; Edema extremities R60.0 ; Degenerative arthritis of knee M17.9 and GERD (gastroesophageal reflux disease) K21.9 [place] [address] [place] [address] Oct, Izzy albicans infection B37.9 [place] [address] [address] Sep, [place] [address] [place] [id number] [place] [address] Sep, UTI (urinary tract infection) N39.0 ; Benign essential HTN I10 ; 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 ; Controlled restless leg syndrome G25.81 ; Edema extremities R60.0 ; SI (stress incontinence), female N39.3 and 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 [place] [address] [place] [id number] [place] [address] 12 Sep, 2015 UTI (urinary tract infection) N39.0 [place] [address] [place] [id number] [place] [address] 11 Aug, 2015 Pre-op evaluation Z01.818 [place] [address] [address] Aug, [place] [address] [place] [id number] [place] [address] 08 Aug, 2015 [place] [address] [address] 14 Jul, 2015 Right hip pain M25.551 ; 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 and Knee pain M25.5[address] [place] [id number] [place] [address] Jul, [place] [address] [place] [id number] [place] [address] Jun, Knee pain M25.569 ; 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 and Degenerative arthritis of knee M17.9 [place] [id number] [place] [address] Jun, [place] [address] [place] [id number] [place] [address] 30 Apr, 2015 Diabetes mellitus 250.00 ; Influenza vaccine administered V04.81 ; Incontinence 788.30 ; Restless legs syndrome 333.94 ; Sciatica 724.3 ; Essential hypertension, benign 401.1 ; Edema 782.3 and Depression (emotion) 311 [place] [address] [place] [id number] [place] [address] 24 Mar, 2015 Pain in joint, lower leg 719.46 and Sciatica 724.[address] [place] [address] Mar, [facility] [address] [id number] [address] Feb, Pain in joint, site unspecified 719.40 ; Other urinary incontinence 788.39 ; Pain in joint, lower leg 719.46 ; Edema 782.3 ; Sciatica 724.3 ; Essential hypertension, benign 401.1 ; Depression 311 ; Diabetes mellitus 250.00 ; Incontinence 788.30 and Restless legs syndrome 333.94 [facility] [address] [id number] [address] Feb, [facility] [address] [place] [id number] [place] [address] Nov, [facility] [address] [place] [id number] [place] [address] Nov, [facility] [address] [place] [id number] [place] [address] Oct, [facility] [address] [place] [address] Oct, [facility] [address] [place] [id number] [place] [address] Aug, [facility] [address] [address] Aug, [facility] [address] [address] Aug, [facility] [address] [address] Aug, [facility] [address] [place] [id number] [place] [address] Aug, [facility] [address] [address] Aug, [facility] [address] [place] [address] Jun, [facility] [place] [facility] [address] [id number] [place] [address] Jun, [facility] [place] [facility] [address] [id number] [place] [address] Jun, [facility] [place] [facility] [address] [id number] [place] [address] Jun, [facility] [place] [facility] [address] [id number] [place] [address] Jun, [facility] [place] [facility] [address] [id number] [place] [address] Jun, [facility] [place] [facility] [address] [id number] [place] [address] May, [facility] [place] [facility] [address] [id number] [place] [address] May, [facility] [place] [facility] [address] [id number] [place] [address] May, [facility] [place] [facility] [address] [id number] [place] [address] May, [facility] [place] [facility] [address] [id number] [place] [address] Apr, [facility] [place] [facility] [address] [id number] [place] [address] Apr, [facility] [place] [facility] [address] [id number] [address] Apr, [facility] [place] [facility] [address] [id number] [place] [address] Apr, [facility] [place] [facility] [address] [id number] [place] [address] Mar, [facility] [place] [facility] [address] [id number] [place] [address] Mar, [facility] [place] [facility] [address] [id number] [place] [address] Mar, [facility] [place] [facility] [address] [id number] [place] [address] Mar, [facility] [place] [facility] [address] [id number] [place] [address] Mar, [facility] [place] [facility] [address] [id number] [place] [address] Mar, [facility] [place] [facility] [address] [id number] [place] [address] Feb, [facility] [place] [facility] [address] [id number] [place] [address] Feb, [facility] [place] [facility] [address] [id number] [place] [address] Jan, [facility] [place] [facility] [address] [id number] [place] [address] Jan, [facility] [place] [facility] [address] [id number] [place] [address] Jan, [facility] [place] [facility] [address] [id number] [place] [address] Jan, [facility] [place] [facility] [address] [id number] [place] [address] December, [facility] [place] [facility] [address] [id number] [place] [address] December, [facility] [place] [facility] [address] [id number] [place] [address] December, [facility] [place] [facility] [address] [id number] [place] [address] December, [facility] [place] [facility] [address] [id number] [place] [address] December, [facility] [place] [facility] [address] [id number] [place] [address] December, [facility] [place] [facility] [address] [id number] [place] [address] December, [facility] [place] [facility] [address] [id number] [place] [address] December, [facility] [place] [facility] [address] [id number] [place] [address] Nov, [facility] [place] [facility] [address] [id number] [place] [address] Nov, [facility] [place] [facility] [address] [id number] [place] [address] Nov, [facility] [place] [facility] [address] [id number] [place] [address] Nov, [facility] [place] [facility] [address] [id number] [place] [address] Oct, [facility] [place] [facility] [address] [id number] [place] [address] Oct, [facility] [place] [facility] [address] [id number] [place] [address] Oct, [facility] [place] [facility] [address] [id number] [place] [address] Oct, [facility] [place] [facility] [address] [id number] [place] [address] Oct, [facility] [place] [facility] [address] [id number] [place] [address] Oct, [facility] [place] [facility] [address] [id number] [place] [address] Oct, [facility] [place] [facility] [address] [id number] [place] [address] Oct, [facility] [place] [facility] [address] [id number] [place] [address] Sep, [facility] [place] [facility] [address] [id number] [place] [address] Sep, [facility] [address] [id number] [place] [address] Sep, [facility] [place] [facility] [address] [id number] [place] [address] Sep, [facility] [place] [facility] [address] [facility] [id number] [place] [address] Sep, [facility] [place] [facility] [address] [id number] [place] [address] Aug, [facility] [address] [id number] [place] [address] Aug, [facility] [place] [facility] [address] [id number] [place] [address] Jul, [facility] [address] [id number] [place] [address] Jul, [facility] [place] [facility] [address] [id number] [place] [address] Jul, [facility] [address] [facility] [id number] [place] [address] Jul, [facility] [place] [facility] [address] [facility] [id number] [place] [address] Jul, [facility] [place] [facility] [address] [facility] [id number] [place] [address] Jul, [facility] [place] [facility] [address] [id number] [place] [address] Jul, [facility] [place] [facility] [address] [id number] [place] [address] Jun, [facility] [place] [facility] [address] [id number] [place] [address] Jun, [facility] [place] [facility] [address] [facility] [id number] [place] [address] Jun, [facility] [place] [facility] [address] [id number] [place] [address] Jun, [facility] [place] [facility] [address] [id number] [place] [address] Jun, [facility] [place] [facility] [address] [id number] [place] [address] Jun, [facility] [place] [facility] [address] [id number] [place] [address] Jun, [facility] [place] [facility] [address] [id number] [place] [address] Jun, [facility] [place] [facility] [address] [id number] [place] [address] Jun, [facility] [place] [facility] [address] [id number] [place] [address] Jun, [facility] [place] [facility] [address] [id number] [place] [address] Jun, [facility] [place] [facility] [address] [id number] [place] [address] Jun, [facility] [place] [facility] [address] [id number] [place] [address] Jun, [facility] [place] [facility] [address] [id number] [place] [address] May, [facility] [place] [facility] [address] [id number] [place] [address] May, [facility] [place] [facility] [address] [id number] [place] [address] May, [facility] [place] [facility] [address] [id number] [place] [address] May, [facility] [place] [facility] [address] [id number] [place] [address] May, [facility] [place] [facility] [address] [id number] [place] [address] May, [facility] [place] [facility] [address] [id number] [place] [address] 10 May, 2013 [facility] [place] [facility] [address] [id number] [place] [address] 10 May, 2013 [facility] [place] [facility] [address] [id number] [place] [address] May, [facility] [place] [facility] [address] [id number] [place] [address] 23 Apr, 2013 [facility] [place] [facility] [address] [id number] [place] [address] 21 Apr, 2013 [facility] [place] [facility] [address] [id number] [place] [address] Apr, [facility] [place] [facility] [address] [id number] [place] [address] Apr, [facility] [place] [facility] [address] [id number], [place] [address] 15 Mar, 2013 [facility] [place] [facility] [address] [id number], [place] [address] 14 Mar, 2013 [facility] [place] [facility] [address] [id number], [place] [address] Mar, [facility] [place] [facility] [address] [id number], [place] [address] Jan, [facility] [place] [facility] [address] [id number], [place] [address] Jan, [facility] [place] [facility] [address] [id number], [place] [address] Jan, [facility] [place] [facility] [address] [id number], [place] [address] Jan, [facility] [place] [facility] [address] [id number], [place] [address] December, [facility] [place] [facility] [address] [id number] [place] [address] 11 Nov, 2012 [facility] [address] [id number] [place] [address] 10 Nov, 2012 [facility] [address] [id number] [place] [address] 19 Sep, 2012 [facility] [address] [id number] [place] [address] 13 Sep, 2012 [facility] [address] [id number] [place] [address] Sep, [facility] [address] [id number] [place] [address] 29 Aug, 2012 [facility] [address] [id number] [place] [address] 18 Aug, 2012 [facility] [address] [id number] [place] [address] 17 Aug, 2012 [facility] [address] [id number] [place] [address] 16 Aug, 2012 [facility] [address] [id number] [place] [address] 16 Aug, 2012 [facility] [address] [id number] [place] [address] 15 Aug, 2012 [facility] [address] [id number] [place] [address] Aug, [facility] [address] [id number] [place] [id number] Jul, [facility] [address] [id number] [place] [address] Jul, [facility] [address] [id number] [place] [address] Jun, [facility] [address] [id number] [place] [address] Jun, [facility] [place] [facility] [address] [id number] [place] [address] May, [facility] [place] [facility] [address] [id number] [place] [address] May, [facility] [place] [facility] [address] [id number] [place] [address] May, [facility] [place] [facility] [address] [id number] [place] [address] May, [facility] [place] [facility] [address] [id number] [place] [address] 26 Apr, 2012 [facility] [place] [facility] [address] [id number] [place] [address] 24 Apr, 2012 [facility] [place] [facility] [address] [id number] [place] [address] 21 Apr, 2012 [facility] [place] [facility] [address] [id number] [place] [address] 20 Apr, 2012 [facility] [place] [facility] [address] [id number] [place] [address] 20 Apr, 2012 [facility] [place] [facility] [address] [id number], [place] [address] 19 Apr, 2012 [facility] [place] [facility] [address] [id number], [place] [address] Apr, [facility] [place] [facility] [address] [id number], [place] [address] Mar, [facility] [place] [facility] [address] [id number] [place] [address] December, [facility] [place] [facility] [address] [id number], [place] [address] December, [facility] [place] [facility] [address] [id number], [place] [address] December, [facility] [place] [facility] [address] [id number], [place] [address] 10 Sep, 2011 [facility] [address] [id number], [place] [address] Sep, [facility] [address] [id number], [place] [address] Aug, [facility] [id number], [place] [address] Aug, [facility] [id number], [place] [address] Aug, [facility] [id number], [place] [address] Jun, [facility] [id number], [place] [address] Jun, [facility] [id number], [place] [address] Jun, [facility] [id number], [place] [address] Jun, [facility] [id number], [place] [address] Mar, [facility] [address] [id number], [place] [address] Jan, [facility] [address] [id number], [place] [address] December, IMMUNIZATIONS No Known Immunizations SOCIAL HISTORY Never Assessed REASON FOR VISIT EMR-[facility] PLAN OF CARE VITAL SIGNS MEDICATIONS Unknown [...]
--- OUTSIDE RECORDS SUMMARY | 2019-03-05 10:47 | XMS REPORT ---
Author Author Migration, Doctor Organization [facility] Address Unknown Phone Unavailable Care Team Providers Care Blasting Entryman Name Role Phone Migration, Doctor Unavailable Unavailable PROBLEMS Type Condition ICD9-CM Code AUO77-CS Code Onset Dates Condition Status SNOMED Code Problem Controlled restless leg syndrome G25.81 Active 98217746 Problem GERD (gastroesophageal reflux disease) K21.9 Active 203702582 Problem Mild single current episode of major depressive disorder F32.0 Active 39345541 Problem Recurrent major depressive disorder, in full remission F33.42 Active 28636677 Problem Benign essential HTN I10 Active 3069243 Problem Low back pain M54.5 Active 422140231 Problem Morbid (severe) obesity due to excess calories E66.01 Active 062872605 Problem OAB (overactive bladder) N32.81 Active 130179791 Problem Other chronic pain G89.29 Active 23393253 Problem Type 2 diabetes mellitus without complication, without long-term current use of insulin E11.9 Active 142700887 ALLERGIES No Information ENCOUNTERS Encounter Location Date Diagnosis [place] [id number] [place] [address] Nov, Degenerative arthritis of knee M17.9 [place] [id number] [place] [address] Oct, Type 2 diabetes mellitus without complication, without long-term current use of insulin E11.9 ; Low back pain M54.5 ; Other chronic pain G89.29 ; Recurrent major depressive disorder, in full remission F33.42 and Benign essential HTN I10 [place] [address] [place] [id number] [place] [address] Oct, Degenerative arthritis of knee M17.9 [place] [id number] [place] [address] Sep, Degenerative arthritis of knee M17.9 [place] [address] [place] [id number] [place] [address] Sep, [facility] [address] [address] Aug, Degenerative arthritis of knee M17.9 [facility] [address] [place] [id number] [place] [address] Aug, [facility] [address] [address] Jul, Dysuria R30.0 ; Acute cystitis without hematuria N30.00 ; Vaginal odor N89.8 and BMI 40.0-44.9, adult Z68.41 [place] [address] [address] Jul, [place] [address] [address] Jul, Degenerative arthritis of knee M17.9 [place] [address] [place] [id number] [place] [address] Jun, Degenerative arthritis of knee M17.9 [place] [address] [address] Jun, Degenerative arthritis of knee M17.9 [place] [address] [place] [id number] [place] [address] Jun, Benign essential HTN I10 ; Type 2 diabetes mellitus without complication, without long-term current use of insulin E11.9 ; Acute cystitis without hematuria N30.00 ; Low back pain M54.5 ; Other chronic pain G89.29 and BMI 40.0- 44.9, adult Z68.41 [place] [address] [address] May, Neuroma of foot D36.13 and 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 [place] [address] [address] May, Degenerative arthritis of knee M17.9 [facility] [address] [address] May, Encounter for immunization Z23 [facility] [address] [place] [id number] [place] [address] Apr, [facility] [address] [place] [id number] [place] [address] Apr, Degenerative arthritis of knee M17.9 [facility] [address] [place] [id number] [place] [address] Mar, Degenerative arthritis of knee M17.9 [place] [address] [place] [id number] [place] [address] Mar, Type 2 diabetes mellitus with diabetic peripheral angiopathy without gangrene, without long-term current use of insulin E11.51 ; Benign essential HTN I10 ; Degenerative arthritis of knee M17.9 and Mild single current episode of major depressive disorder F32.0 [place] [address] [place] [id number] [place] [address] Feb, [place] [address] [place] [id number] [place] [address] Feb, Degenerative arthritis of knee M17.9 [place] [address] [place] [id number] [place] [address] Feb, [place] [address] [place] [id number] [place] [address] Jan, Degenerative arthritis of knee M17.9 [place] [address] [place] [id number] [place] [address] Jan, Herpes zoster without complication B02.9 and BMI 40.0-44.9, adult Z68.41 [place] [address] [place] [id number] [place] [address] December, Degenerative arthritis of knee M17.9 [place] [address] [place] [id number] [place] [address] Nov, Benign essential HTN I10 ; Type [...] Z68.41 and GERD (gastroesophageal reflux disease) K21.9 [place] [address] [place] [id number] [place] [address] Nov, [place] [address] [address] Oct, Degenerative arthritis of knee M17.9 [place] [address] [address] Oct, [place] [address] [address] Oct, Type 2 diabetes mellitus with diabetic peripheral angiopathy without gangrene, without long-term current use of insulin E11.51 and Controlled substance agreement signed Z79.899 [place] [address] [place] [id number] [place] [address] Oct, Degenerative arthritis of knee M17.9 [place] [address] [place] [id number] [place] [address] Sep, Type 2 diabetes mellitus with diabetic peripheral angiopathy without gangrene, without long-term current use of insulin E11.51 ; Benign essential HTN I10 ; BMI 40.0-44.9, adult Z68.41 ; Mild single current episode of major depressive disorder F32.0 ; OAB (overactive bladder) N32.81 ; Degenerative arthritis of knee M17.9 and GERD (gastroesophageal reflux disease) K21.9 [place] [address] [place] [id number] [place] [address] Aug, Joint pain and swelling due to Lyme disease A69.20 [place] [address] [place] [id number] [place] [address] Jun, [place] [address] [place] [id number] [place] [address] May, 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 ; Benign essential HTN I10 ; 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 ; Body mass index (BMI) of 40.0-44.9 in adult Z68.41 and Morbid (severe) obesity due to excess calories E66.01 [place] [address] [place] [id number] [place] [address] May, Encounter for immunization Z23 [place] [address] [place] [id number] [place] [address] May, 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 [place] [address] [place] [id number] [place] [address] Mar, Mild single current episode of major depressive disorder F32.0 [place] [address] [place] [id number] [place] [address] Mar, Joint pain and swelling due to Lyme disease A69.20 [place] [address] [place] [id number] [place] [address] Feb, Izzy infection B37.9 [place] [address] [place] [id number] [place] [address] Jan, Insect bite (nonvenomous) of abdominal wall, initial encounter S30.861A and Joint pain and swelling due to Lyme disease A69.20 [place] [address] [place] [id number] [place] [address] Jan, [place] [address] [place] [id number] [place] [address] Sep, Mild single current episode of major depressive disorder F32.0 and 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 [facility] [id number] [place] [address] 13 Sep, 2016 Controlled restless leg syndrome G25.81 and Cramp of both lower extremities R25.2 [facility] [address] [place] [id number] [address] Aug, 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 ; Controlled restless leg syndrome G25.81 ; SI (stress incontinence), female N39.3 ; Benign essential HTN I10 ; 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 ; GERD (gastroesophageal reflux disease) K21.9 ; Screening cholesterol level Z13.220 and Mild single current episode of major depressive disorder F32.0 [place] [address] [place] [id number] [place] [address] Aug, [place] [address] [place] [id number] [place] [address] May, [place] [address] [place] [id number] [place] [address] May, Encounter for immunization Z23 [place] [address] [address] Apr, [place] [address] [place] [id number] [place] [address] Apr, [place] [address] [place] [id number] [place] [address] 27 Apr, 2016 SAMANTHA (secretory otitis media), right H65.91 ; 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 ; Controlled restless leg syndrome G25.81 ; Edema extremities R60.0 ; SI (stress incontinence), female N39.3 ; Benign essential HTN I10 ; Degenerative arthritis of knee M17.9 and Major depressive disorder with single episode, remission status unspecified F32.9 [facility] [address] [place] [id number] [place] [address] 19 Apr, 2016 OME (otitis media with effusion), right H65.91 [facility] [address] [address] Mar, [place] [address] [place] [id number] [place] [address] Mar, 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 ; Controlled restless leg syndrome G25.81 ; SI (stress incontinence), female N39.3 ; Benign essential HTN I10 ; GERD (gastroesophageal reflux disease) K21.9 ; Knee pain M25.569 and Major depressive disorder with single episode, remission status unspecified F32.9 [place] [address] [place] [address] Mar, [place] [address] [place] [id number] [place] [address] Mar, [place] [address] [place] [id number] [place] [address] Jan, Pre-op exam Z01.818 [place] [address] [address] Oct, Urinary tract infection N39.0 ; Benign essential HTN I10 ; Controlled restless leg syndrome G25.81 ; Edema extremities R60.0 ; Degenerative arthritis of knee M17.9 and GERD (gastroesophageal reflux disease) K21.9 [place] [id number] [place] [address] Oct, Izzy albicans infection B37.9 [place] [address] [address] Sep, [place] [address] [place] [id number] [place] [address] Sep, UTI (urinary tract infection) N39.0 ; Benign essential HTN I10 ; 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 ; Controlled restless leg syndrome G25.81 ; Edema extremities R60.0 ; SI (stress incontinence), female N39.3 and 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 [place] [address] [place] [id number] [place] [address] 12 Sep, 2015 UTI (urinary tract infection) N39.0 [place] [address] [place] [id number] [place] [address] 11 Aug, 2015 Pre-op evaluation Z01.818 [place] [address] [address] Aug, [place] [address] [place] [id number] [place] [address] 08 Aug, 2015 [place] [address] [address] 14 Jul, 2015 Right hip pain M25.551 ; 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 and Knee pain M25.569 [place] [id number] [place] [address] Jul, [place] [address] [place] [id number] [place] [address] Jun, Knee pain M25.569 ; 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 and Degenerative arthritis of knee M17.9 [place] [id number] [place] [address] Jun, [place] [address] [place] [id number] [place] [address] 30 Apr, 2015 Diabetes mellitus 250.00 ; Influenza vaccine administered V04.81 ; Incontinence 788.30 ; Restless legs syndrome 333.94 ; Sciatica 724.3 ; Essential hypertension, benign 401.1 ; Edema 782.3 and Depression (emotion) 311 [place] [address] [place] [id number] [place] [address] 24 Mar, 2015 Pain in joint, lower leg 719.46 and Sciatica 724.[address] [place] [address] Mar, [facility] [id number] [address] Feb, Pain in joint, site unspecified 719.40 ; Other urinary incontinence 788.39 ; Pain in joint, lower leg 719.46 ; Edema 782.3 ; Sciatica 724.3 ; Essential hypertension, benign 401.1 ; Depression 311 ; Diabetes mellitus 250.00 ; Incontinence 788.30 and Restless legs syndrome 333.94 [facility] [id number] [address] Feb, [facility] [address] [place] [id number] [place] [address] Nov, [facility] [address] [place] [id number] [place] [address] Nov, [facility] [address] [place] [id number] [place] [address] Oct, [facility] [id number] [place] [address] Oct, [facility] [address] [place] [id number] [place] [address] Aug, [facility] [address] [address] Aug, [facility] [address] [address] Aug, [facility] [address], [place] [address] Aug, [facility] [address] [place] [id number] [place] [address] Aug, [facility] [address] [address] Aug, [facility] [id number] [place] [address] Jun, [facility] [place] [facility] [address] [id number] [place] [address] Jun, [facility] [place] [facility] [address] [id number] [place] [address] Jun, [facility] [place] [facility] [address] [id number] [place] [address] Jun, [facility] [place] [facility] [address] [id number] [place] [address] Jun, [facility] [place] [facility] [address] [id number] [place] [address] Jun, [facility] [place] [facility] [address] [id number] [place] [address] May, [facility] [place] [facility] [address] [id number] [place] [address] May, [facility] [place] [facility] [address] [id number] [place] [address] May, [facility] [place] [facility] [address] [id number] [place] [address] May, [facility] [place] [facility] [address] [id number] [place] [address] Apr, [facility] [place] [facility] [address] [id number] [place] [address] Apr, [facility] [place] [facility] [address] [id number] [address] Apr, [facility] [place] [facility] [address] [id number] [place] [address] Apr, [facility] [place] [facility] [address] [id number] [place] [address] Mar, [facility] [place] [facility] [address] [id number] [place] [address] Mar, [facility] [place] [facility] [address] [id number] [place] [address] Mar, [facility] [place] [facility] [address] [id number] [place] [address] Mar, [facility] [place] [facility] [address] [id number] [place] [address] Mar, [facility] [place] [facility] [address] [id number] [place] [address] Mar, [facility] [place] [facility] [address] [id number] [place] [address] Feb, [facility] [place] [facility] [address] [id number] [place] [address] Feb, [facility] [place] [facility] [address] [id number] [place] [address] Jan, [facility] [place] [facility] [address] [id number] [place] [address] Jan, [facility] [place] [facility] [address] [id number] [place] [address] Jan, [facility] [place] [facility] [address] [id number] [place] [address] Jan, [facility] [place] [facility] [address] [id number] [place] [address] December, [facility] [place] [facility] [address] [id number] [place] [address] December, [facility] [place] [facility] [address] [id number] [place] [address] December, [facility] [place] [facility] [address] [id number] [place] [address] December, [facility] [place] [facility] [address] [id number] [place] [address] December, [facility] [place] [facility] [address] [id number] [place] [address] December, [facility] [place] [facility] [address] [id number] [place] [address] December, [facility] [place] [facility] [address] [id number] [place] [address] December, [facility] [place] [facility] [address] [id number] [place] [address] Nov, [facility] [place] [facility] [address] [id number] [place] [address] Nov, [facility] [place] [facility] [address] [id number] [place] [address] Nov, [facility] [place] [facility] [address] [id number] [place] [address] Nov, [facility] [place] [facility] [address] [id number] [place] [address] Oct, [facility] [place] [facility] [address] [id number] [place] [address] Oct, [facility] [place] [facility] [address] [id number] [place] [address] Oct, [facility] [place] [facility] [address] [id number] [place] [address] Oct, [facility] [place] [facility] [address] [id number] [place] [address] Oct, [facility] [place] [facility] [address] [id number] [place] [address] Oct, [facility] [place] [facility] [address] [id number] [place] [address] Oct, [facility] [place] [facility] [address] [id number] [place] [address] Oct, [facility] [place] [facility] [address] [id number] [place] [address] Sep, [facility] [place] [facility] [address] [id number] [place] [address] Sep, [facility] [address] [id number] [place] [address] Sep, [facility] [place] [facility] [address] [id number] [place] [address] Sep, [facility] [place] [facility] [address] [facility] [id number] [place] [address] Sep, [facility] [place] [facility] [address] [id number] [place] [address] Aug, [facility] [address] [id number] [place] [address] Aug, [facility] [place] [facility] [address] [id number] [place] [address] Jul, [facility] [address] [id number] [place] [address] Jul, [facility] [place] [facility] [address] [id number] [place] [address] Jul, [facility] [address] [facility] [id number] [place] [address] Jul, [facility] [place] [facility] [address] [facility] [id number] [place] [address] Jul, [facility] [place] [facility] [address] [facility] [id number] [place] [address] Jul, [facility] [place] [facility] [address] [id number] [place] [address] Jul, [facility] [place] [facility] [address] [id number] [place] [address] Jun, [facility] [place] [facility] [address] [id number] [place] [address] Jun, [facility] [place] [facility] [address] [facility] [id number] [place] [address] Jun, [facility] [place] [facility] [address] [id number] [place] [address] Jun, [facility] [place] [facility] [address] [id number] [place] [address] Jun, [facility] [place] [facility] [address] [id number] [place] [address] Jun, [facility] [place] [facility] [address] [id number] [place] [address] Jun, [facility] [place] [facility] [address] [id number] [place] [address] Jun, [facility] [place] [facility] [address] [id number] [place] [address] Jun, [facility] [place] [facility] [address] [id number] [place] [address] Jun, [facility] [place] [facility] [address] [id number] [place] [address] Jun, [facility] [place] [facility] [address] [id number] [place] [address] Jun, [facility] [place] [facility] [address] [id number] [place] [address] Jun, [facility] [place] [facility] [address] [id number] [place] [address] May, [facility] [place] [facility] [address] [id number] [place] [address] May, [facility] [place] [facility] [address] [id number] [place] [address] May, [facility] [place] [facility] [address] [id number] [place] [address] May, [facility] [place] [facility] [address] [id number] [place] [address] May, [facility] [place] [facility] [address] [id number] [place] [address] May, [facility] [place] [facility] [address] [id number] [place] [address] 10 May, 2013 [facility] [place] [facility] [address] [id number] [place] [address] 10 May, 2013 [facility] [place] [facility] [address] [id number] [place] [address] May, [facility] [place] [facility] [address] [id number] [place] [address] 23 Apr, 2013 [facility] [place] [facility] [address] [id number] [place] [address] 21 Apr, 2013 [facility] [place] [facility] [address] [id number] [place] [address] Apr, [facility] [place] [facility] [address] [id number] [place] [address] Apr, [facility] [place] [facility] [address] [id number], [place] [address] 15 Mar, 2013 [facility] [place] [facility] [address] [id number], [place] [address] 14 Mar, 2013 [facility] [place] [facility] [address] [id number], [place] [address] Mar, [facility] [place] [facility] [address] [id number], [place] [address] Jan, [facility] [place] [facility] [address] [id number], [place] [address] Jan, [facility] [place] [facility] [address] [id number], [place] [address] Jan, [facility] [place] [facility] [address] [id number], [place] [address] Jan, [facility] [place] [facility] [address] [id number], [place] [address] December, [facility] [place] [facility] [address] [id number] [place] [address] 11 Nov, 2012 [facility] [address] [id number] [place] [address] 10 Nov, 2012 [facility] [address] [id number] [place] [address] 19 Sep, 2012 [facility] [address] [id number] [place] [address] 13 Sep, 2012 [facility] [address] [id number] [place] [address] Sep, [facility] [address] [id number] [place] [address] 29 Aug, 2012 [facility] [address] [id number] [place] [address] 18 Aug, 2012 [facility] [address] [id number] [place] [address] 17 Aug, 2012 [facility] [address] [address] [id number] [place] [address] 16 Aug, 2012 [facility] [address] [id number] [place] [address] 16 Aug, 2012 [facility] [address] [id number] [place] [address] 15 Aug, 2012 [facility] [address] [id number] [place] [address] Aug, [facility] [address] [id number] [place] [address] Jul, [facility] [address] [id number] [place] [address] Jul, [facility] [address] [id number] [place] [address] Jun, [facility] [address] [id number] [place] [address] Jun, [facility] [place] [facility] [address] [id number] [place] [address] May, [facility] [place] [facility] [address] [id number] [place] [address] May, [facility] [place] [facility] [address] [id number] [place] [address] May, [facility] [place] [facility] [address] [id number] [place] [address] May, [facility] [place] [facility] [address] [id number] [place] [address] 26 Apr, 2012 [facility] [place] [facility] [address] [id number] [place] [address] 24 Apr, 2012 [facility] [place] [facility] [address] [id number] [place] [address] 21 Apr, 2012 [facility] [place] [facility] [address] [id number] [place] [address] 20 Apr, 2012 [facility] [place] [facility] [address] [id number] [place] [address] 20 Apr, 2012 [facility] [place] [facility] [address] [id number], [place] [address] 19 Apr, 2012 [facility] [place] [facility] [address] [id number], [place] [address] Apr, [facility] [place] [facility] [address] [id number], [place] [address] Mar, [facility] [place] [facility] [address] [id number] [place] [address] December, [facility] [place] [facility] [address] [id number], [place] [address] December, [facility] [place] [facility] [address] [id number], [place] [address] December, [facility] [place] [facility] [address] [id number], [place] [address] 10 Sep, 2011 [facility] [address] [id number] [address] Sep, [facility] [address] [id number], [place] [address] Aug, [facility] [id number], [place] [address] Aug, [facility] [id number], [place] [address] Aug, [facility] [id number], [place] [address] Jun, [facility] [id number], [place] [address] Jun, [facility] [id number], [place] [address] Jun, [facility] [id number], [place] [address] Jun, [facility] [id number], [place] [address] Mar, [facility] [address] [id number], [place] [address] Jan, [facility] [address] [id number], [place] [address] December, IMMUNIZATIONS No Known Immunizations SOCIAL HISTORY Never Assessed REASON FOR VISIT EMR-[facility] [place] [facility] PLAN OF CARE VITAL [...]
--- OUTSIDE RECORDS SUMMARY | 2019-03-05 10:47 | XMS REPORT ---
Author Author Migration, Doctor Organization [facility] Address Unknown Phone Unavailable Care Team Providers Care Platform Architect Name Role Phone Migration, Doctor Unavailable Unavailable PROBLEMS Type Condition ICD9-CM Code UTS47-BN Code Onset Dates Condition Status SNOMED Code Problem Controlled restless leg syndrome G25.81 Active 16530876 Problem GERD (gastroesophageal reflux disease) K21.9 Active 883632151 Problem Mild single current episode of major depressive disorder F32.0 Active 55910422 Problem Recurrent major depressive disorder, in full remission F33.42 Active 05510197 Problem Benign essential HTN I10 Active 5411961 Problem Low back pain M54.5 Active 492791894 Problem Morbid (severe) obesity due to excess calories E66.01 Active 835586087 Problem OAB (overactive bladder) N32.81 Active 100113305 Problem Other chronic pain G89.29 Active 50200360 Problem Type 2 diabetes mellitus without complication, without long-term current use of insulin E11.9 Active [id number] ALLERGIES No Information ENCOUNTERS Encounter Location Date Diagnosis [place] [id number] [place] [address] Nov, Degenerative arthritis of knee M17.9 [place] [address] [place] [address] Oct, Type 2 diabetes mellitus without complication, without long-term current use of insulin E11.9 ; Low back pain M54.5 ; Other chronic pain G89.29 ; Recurrent major depressive disorder, in full remission F33.42 and Benign essential HTN I10 [place] [address] [place] [id number] [place] [address] Oct, Degenerative arthritis of knee M17.9 [place] [address] [place] [address] Sep, Degenerative arthritis of knee M17.9 [place] [address] [place] [id number] [place] [address] Sep, [facility] [address] [address] Aug, Degenerative arthritis of knee M17.9 [facility] [address] [place] [id number] [place] [address] Aug, [facility] [address] [address] Jul, Dysuria R30.0 ; Acute cystitis without hematuria N30.00 ; Vaginal odor N89.8 and BMI 40.0-44.9, adult Z68.41 [place] [address] [address] Jul, [place] [address] [address] Jul, Degenerative arthritis of knee M17.9 [place] [address] [place] [id number] [place] [address] Jun, Degenerative arthritis of knee M17.9 [place] [address] [address] Jun, Degenerative arthritis of knee M17.9 [place] [address] [place] [id number] [place] [address] Jun, Benign essential HTN I10 ; Type 2 diabetes mellitus without complication, without long-term current use of insulin E11.9 ; Acute cystitis without hematuria N30.00 ; Low back pain M54.5 ; Other chronic pain G89.29 and BMI 40.0- 44.9, adult Z68.41 [place] [address] [address] May, Neuroma of foot D36.13 and 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 [place] [address] [address] May, Degenerative arthritis of knee M17.9 [facility] [address] [address] May, Encounter for immunization Z23 [facility] [address] [place] [id number] [place] [address] Apr, [facility] [address] [place] [id number] [place] [address] Apr, Degenerative arthritis of knee M17.9 [facility] [address] [place] [id number] [place] [address] Mar, Degenerative arthritis of knee M17.9 [place] [address] [place] [id number] [place] [address] Mar, Type 2 diabetes mellitus with diabetic peripheral angiopathy without gangrene, without long-term current use of insulin E11.51 ; Benign essential HTN I10 ; Degenerative arthritis of knee M17.9 and Mild single current episode of major depressive disorder F32.0 [place] [address] [place] [id number] [place] [address] Feb, [place] [address] [place] [id number] [place] [address] Feb, Degenerative arthritis of knee M17.9 [place] [address] [place] [id number] [place] [address] Feb, [place] [address] [place] [id number] [place] [address] Jan, Degenerative arthritis of knee M17.9 [place] [address] [place] [id number] [place] [address] Jan, Herpes zoster without complication B02.9 and BMI 40.0-44.9, adult Z68.41 [place] [address] [place] [id number] [place] [address] December, Degenerative arthritis of knee M17.9 [place] [address] [place] [id number] [place] [address] Nov, Benign essential HTN I10 ; Type [...] Z68.41 and GERD (gastroesophageal reflux disease) K21.9 [place] [address] [place] [id number] [place] [address] Nov, [place] [address] [address] Oct, Degenerative arthritis of knee M17.9 [place] [address] [address] Oct, [place] [address] [address] Oct, Type 2 diabetes mellitus with diabetic peripheral angiopathy without gangrene, without long-term current use of insulin E11.51 and Controlled substance agreement signed Z79.899 [place] [address] [place] [id number] [place] [address] Oct, Degenerative arthritis of knee M17.9 [place] [address] [place] [id number] [place] [address] Sep, Type 2 diabetes mellitus with diabetic peripheral angiopathy without gangrene, without long-term current use of insulin E11.51 ; Benign essential HTN I10 ; BMI 40.0-44.9, adult Z68.41 ; Mild single current episode of major depressive disorder F32.0 ; OAB (overactive bladder) N32.81 ; Degenerative arthritis of knee M17.9 and GERD (gastroesophageal reflux disease) K21.9 [place] [address] [place] [id number] [place] [address] Aug, Joint pain and swelling due to Lyme disease A69.20 [place] [address] [place] [id number] [place] [address] Jun, [place] [address] [place] [id number] [place] [address] May, 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 ; Benign essential HTN I10 ; 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 ; Body mass index (BMI) of 40.0-44.9 in adult Z68.41 and Morbid (severe) obesity due to excess calories E66.01 [place] [address] [place] [id number] [place] [address] May, Encounter for immunization Z23 [place] [address] [place] [id number] [place] [address] May, 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 [place] [address] [place] [id number] [place] [address] Mar, Mild single current episode of major depressive disorder F32.0 [place] [address] [place] [id number] [place] [address] Mar, Joint pain and swelling due to Lyme disease A69.20 [place] [address] [place] [id number] [place] [address] Feb, Izzy infection B37.9 [place] [address] [place] [id number] [place] [address] Jan, Insect bite (nonvenomous) of abdominal wall, initial encounter S30.861A and Joint pain and swelling due to Lyme disease A69.20 [place] [address] [place] [id number] [place] [address] Jan, [place] [address] [place] [id number] [place] [address] Sep, Mild single current episode of major depressive disorder F32.0 and 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 [facility] [address] [place] [address] 13 Sep, 2016 Controlled restless leg syndrome G25.81 and Cramp of both lower extremities R25.2 [facility] [address] [place] [id number] [address] Aug, 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 ; Controlled restless leg syndrome G25.81 ; SI (stress incontinence), female N39.3 ; Benign essential HTN I10 ; 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 ; GERD (gastroesophageal reflux disease) K21.9 ; Screening cholesterol level Z13.220 and Mild single current episode of major depressive disorder F32.0 [place] [address] [place] [id number] [place] [address] Aug, [place] [address] [place] [id number] [place] [address] May, [place] [address] [place] [id number] [place] [address] May, Encounter for immunization Z23 [place] [address] [address] Apr, [place] [address] [place] [id number] [place] [address] Apr, [place] [address] [place] [id number] [place] [address] 27 Apr, 2016 SAMANTHA (secretory otitis media), right H65.91 ; 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 ; Controlled restless leg syndrome G25.81 ; Edema extremities R60.0 ; SI (stress incontinence), female N39.3 ; Benign essential HTN I10 ; Degenerative arthritis of knee M17.9 and Major depressive disorder with single episode, remission status unspecified F32.9 [facility] [address] [place] [id number] [place] [address] 19 Apr, 2016 OME (otitis media with effusion), right H65.91 [facility] [address] [address] Mar, [place] [address] [place] [id number] [place] [address] Mar, 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 ; Controlled restless leg syndrome G25.81 ; SI (stress incontinence), female N39.3 ; Benign essential HTN I10 ; GERD (gastroesophageal reflux disease) K21.9 ; Knee pain M25.569 and Major depressive disorder with single episode, remission status unspecified F32.9 [place] [address] [place] [address] Mar, [place] [address] [place] [id number] [place] [address] Mar, [place] [address] [place] [id number] [place] [address] Jan, Pre-op exam Z01.818 [place] [address] [address] Oct, Urinary tract infection N39.0 ; Benign essential HTN I10 ; Controlled restless leg syndrome G25.81 ; Edema extremities R60.0 ; Degenerative arthritis of knee M17.9 and GERD (gastroesophageal reflux disease) K21.9 [place] [address] [place] [address] Oct, Izzy albicans infection B37.9 [place] [address] [address] Sep, [place] [address] [place] [id number] [place] [address] Sep, UTI (urinary tract infection) N39.0 ; Benign essential HTN I10 ; 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 ; Controlled restless leg syndrome G25.81 ; Edema extremities R60.0 ; SI (stress incontinence), female N39.3 and 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 [place] [address] [place] [id number] [place] [address] 12 Sep, 2015 UTI (urinary tract infection) N39.0 [place] [address] [place] [id number] [place] [address] 11 Aug, 2015 Pre-op evaluation Z01.818 [place] [address] [address] Aug, [place] [address] [place] [id number] [place] [address] 08 Aug, 2015 [place] [address] [address] 14 Jul, 2015 Right hip pain M25.551 ; 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 and Knee pain M25.569 [place] [id number] [place] [address] Jul, [place] [address] [place] [id number] [place] [address] Jun, Knee pain M25.569 ; 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 and Degenerative arthritis of knee M17.9 [place] [id number] [place] [address] Jun, [place] [address] [place] [id number] [place] [address] 30 Apr, 2015 Diabetes mellitus 250.00 ; Influenza vaccine administered V04.81 ; Incontinence 788.30 ; Restless legs syndrome 333.94 ; Sciatica 724.3 ; Essential hypertension, benign 401.1 ; Edema 782.3 and Depression (emotion) 311 [place] [address] [place] [id number] [place] [address] 24 Mar, 2015 Pain in joint, lower leg 719.46 and Sciatica 724.[address] [place] [address] Mar, [facility] [address] [place] [id number] [address] Feb, Pain in joint, site unspecified 719.40 ; Other urinary incontinence 788.39 ; Pain in joint, lower leg 719.46 ; Edema 782.3 ; Sciatica 724.3 ; Essential hypertension, benign 401.1 ; Depression 311 ; Diabetes mellitus 250.00 ; Incontinence 788.30 and Restless legs syndrome 333.94 [facility] [address] [place] [id number] [address] Feb, [facility] [address] [place] [id number] [place] [address] Nov, [facility] [address] [place] [id number] [place] [address] Nov, [facility] [address] [place] [id number] [place] [address] Oct, [facility] [address] [place] [address] Oct, [facility] [address] [place] [id number] [place] [address] Aug, [facility] [address] [address] Aug, [facility] [address] [address] Aug, [facility] [address], [place] [address] Aug, [facility] [address] [place] [id number] [place] [address] Aug, [facility] [address], [place] [address] Aug, [facility] [address] [place] [address] Jun, [facility] [place] [facility] [address] [id number] [place] [address] Jun, [facility] [place] [facility] [address] [id number] [place] [address] Jun, [facility] [place] [facility] [address] [id number] [place] [address] Jun, [facility] [place] [facility] [address] [id number] [place] [address] Jun, [facility] [place] [facility] [address] [id number] [place] [address] Jun, [facility] [place] [facility] [address] [id number] [place] [address] May, [facility] [place] [facility] [address] [id number] [place] [address] May, [facility] [place] [facility] [address] [id number] [place] [address] May, [facility] [place] [facility] [address] [id number] [place] [address] May, [facility] [place] [facility] [address] [id number] [place] [address] Apr, [facility] [place] [facility] [address] [id number] [place] [address] Apr, [facility] [place] [facility] [address] [id number] [address] Apr, [facility] [place] [facility] [address] [id number] [place] [address] Apr, [facility] [place] [facility] [address] [id number] [place] [address] Mar, [facility] [place] [facility] [address] [id number] [place] [address] Mar, [facility] [place] [facility] [address] [id number] [place] [address] Mar, [facility] [place] [facility] [address] [id number] [place] [address] Mar, [facility] [place] [facility] [address] [id number] [place] [address] Mar, [facility] [place] [facility] [address] [id number] [place] [address] Mar, [facility] [place] [facility] [address] [id number] [place] [address] Feb, [facility] [place] [facility] [address] [id number] [place] [address] Feb, [facility] [place] [facility] [address] [id number] [place] [address] Jan, [facility] [place] [facility] [address] [id number] [place] [address] Jan, [facility] [place] [facility] [address] [id number] [place] [address] Jan, [facility] [place] [facility] [address] [id number] [place] [address] Jan, [facility] [place] [facility] [address] [id number] [place] [address] December, [facility] [place] [facility] [address] [id number] [place] [address] December, [facility] [place] [facility] [address] [id number] [place] [address] December, [facility] [place] [facility] [address] [id number] [place] [address] December, [facility] [place] [facility] [address] [id number] [place] [address] December, [facility] [place] [facility] [address] [id number] [place] [address] December, [facility] [place] [facility] [address] [id number] [place] [address] December, [facility] [place] [facility] [address] [id number] [place] [address] December, [facility] [place] [facility] [address] [id number] [place] [address] Nov, [facility] [place] [facility] [address] [id number] [place] [address] Nov, [facility] [place] [facility] [address] [id number] [place] [address] Nov, [facility] [place] [facility] [address] [id number] [place] [address] Nov, [facility] [place] [facility] [address] [id number] [place] [address] Oct, [facility] [place] [facility] [address] [id number] [place] [address] Oct, [facility] [place] [facility] [address] [id number] [place] [address] Oct, [facility] [place] [facility] [address] [id number] [place] [address] Oct, [facility] [place] [facility] [address] [id number] [place] [address] Oct, [facility] [place] [facility] [address] [id number] [place] [address] Oct, [facility] [place] [facility] [address] [id number] [place] [address] Oct, [facility] [place] [facility] [address] [id number] [place] [address] Oct, [facility] [place] [facility] [address] [id number] [place] [address] Sep, [facility] [place] [facility] [address] [id number] [place] [address] Sep, [facility] [address] [id number] [place] [address] Sep, [facility] [place] [facility] [address] [id number] [place] [address] Sep, [facility] [place] [facility] [address] [facility] [id number] [place] [address] Sep, [facility] [place] [facility] [address] [id number] [place] [address] Aug, [facility] [address] [id number] [place] [address] Aug, [facility] [place] [facility] [address] [id number] [place] [address] Jul, [facility] [address] [id number] [place] [address] Jul, [facility] [place] [facility] [address] [id number] [place] [address] Jul, [facility] [address] [facility] [id number] [place] [address] Jul, [facility] [place] [facility] [address] [facility] [id number] [place] [address] Jul, [facility] [place] [facility] [address] [facility] [id number] [place] [address] Jul, [facility] [place] [facility] [address] [id number] [place] [address] Jul, [facility] [place] [facility] [address] [id number] [place] [address] Jun, [facility] [place] [facility] [address] [id number] [place] [address] Jun, [facility] [place] [facility] [address] [facility] [id number] [place] [address] Jun, [facility] [place] [facility] [address] [id number] [place] [address] Jun, [facility] [place] [facility] [address] [id number] [place] [address] Jun, [facility] [place] [facility] [address] [id number] [place] [address] Jun, [facility] [place] [facility] [address] [id number] [place] [address] Jun, [facility] [place] [facility] [address] [id number] [place] [address] Jun, [facility] [place] [facility] [address] [id number] [place] [address] Jun, [facility] [place] [facility] [address] [id number] [place] [address] Jun, [facility] [place] [facility] [address] [id number] [place] [address] Jun, [facility] [place] [facility] [address] [id number] [place] [address] Jun, [facility] [place] [facility] [address] [id number] [place] [address] Jun, [facility] [place] [facility] [address] [id number] [place] [address] May, [facility] [place] [facility] [address] [id number] [place] [address] May, [facility] [place] [facility] [address] [id number] [place] [address] May, [facility] [place] [facility] [address] [id number] [place] [address] May, [facility] [place] [facility] [address] [id number] [place] [address] May, [facility] [place] [facility] [address] [id number] [place] [address] May, [facility] [place] [facility] [address] [id number] [place] [address] 10 May, 2013 [facility] [place] [facility] [address] [id number] [place] [address] 10 May, 2013 [facility] [place] [facility] [address] [id number] [place] [address] May, [facility] [place] [facility] [address] [id number] [place] [address] 23 Apr, 2013 [facility] [place] [facility] [address] [id number] [place] [address] 21 Apr, 2013 [facility] [place] [facility] [address] [id number] [place] [address] Apr, [facility] [place] [facility] [address] [id number] [place] [address] Apr, [facility] [place] [facility] [address] [id number], [place] [address] 15 Mar, 2013 [facility] [place] [facility] [address] [id number], [place] [address] 14 Mar, 2013 [facility] [place] [facility] [address] [id number], [place] [address] Mar, [facility] [place] [facility] [address] [id number], [place] [address] Jan, [facility] [place] [facility] [address] [id number], [place] [address] Jan, [facility] [place] [facility] [address] [id number], [place] [address] Jan, [facility] [place] [facility] [address] [id number], [place] [address] Jan, [facility] [place] [facility] [address] [id number], [place] [address] December, [facility] [place] [facility] [address] [id number] [place] [address] 11 Nov, 2012 [facility] [address] [id number] [place] [address] 10 Nov, 2012 [facility] [address] [id number] [place] [address] 19 Sep, 2012 [facility] [address] [id number] [place] [address] 13 Sep, 2012 [facility] [address] [id number] [place] [address] Sep, [facility] [address] [id number] [place] [address] 29 Aug, 2012 [facility] [address] [id number] [place] [address] 18 Aug, 2012 [facility] [address] [id number] [place] [address] 17 Aug, 2012 [facility] [address] [id number] [place] [address] 16 Aug, 2012 [facility] [address] [id number] [place] [address] 16 Aug, 2012 [facility] [address] [id number] [place] [address] 15 Aug, 2012 [facility] [address] [id number] [place] [address] Aug, [facility] [address] [id number] [place] [address] Jul, [facility] [address] [id number] [place] [address] Jul, [facility] [address] [id number] [place] [address] Jun, [facility] [address] [id number] [place] [address] Jun, [facility] [place] [facility] [address] [id number] [place] [address] May, [facility] [place] [facility] [address] [id number] [place] [address] May, [facility] [place] [facility] [address] [id number] [place] [address] May, [facility] [place] [facility] [address] [id number] [place] [address] May, [facility] [place] [facility] [address] [id number] [place] [address] 26 Apr, 2012 [facility] [place] [facility] [address] [id number] [place] [address] 24 Apr, 2012 [facility] [place] [facility] [address] [id number] [place] [address] 21 Apr, 2012 [facility] [place] [facility] [address] [id number] [place] [address] 20 Apr, 2012 [facility] [place] [facility] [address] [id number] [place] [address] 20 Apr, 2012 [facility] [place] [facility] [address] [id number], [place] [address] 19 Apr, 2012 [facility] [place] [facility] [address] [id number], [place] [address] Apr, [facility] [place] [facility] [address] [id number], [place] [address] Mar, [facility] [place] [facility] [address] [id number] [place] [address] December, [facility] [place] [facility] [address] [id number], [place] [address] December, [facility] [place] [facility] [address] [id number], [place] [address] December, [facility] [place] [facility] [address] [id number], [place] [address] 10 Sep, 2011 [facility] [address] [id number], [place] [address] Sep, [facility] [address] [id number], [place] [address] Aug, [facility] [id number], [place] [address] Aug, [facility] [id number], [place] [address] Aug, [facility] [id number], [place] [address] Jun, [facility] [id number], [place] [address] Jun, [facility] [id number], [place] [address] Jun, [facility] [id number], [place] [address] Jun, [facility] [id number], [place] [address] Mar, [facility] [address] [id number], [place] [address] Jan, [facility] [address] [id number], [place] [address] December, IMMUNIZATIONS No Known Immunizations SOCIAL HISTORY Never Assessed REASON FOR VISIT EMR-[facility] PLAN OF CARE VITAL SIGNS MEDICATIONS Unknown [...]
--- OUTSIDE RECORDS SUMMARY | 2019-03-05 10:48 | XMS REPORT ---
Author Author PHILIP CATHERINE Organization [facility] Address [address] [place] [address] Care Team Providers Care Mold Yarn Supervisor Name Role Phone PHILIP CATHERINE Unavailable PROBLEMS Type Condition ICD9-CM Code OPP34-CM Code Onset Dates Condition Status SNOMED Code Problem Controlled restless leg syndrome G25.81 Active 27637413 Problem Benign essential HTN I10 Active 1710136 Problem Other chronic pain G89.29 Active 84058306 Problem Type 2 diabetes mellitus without complication, without long-term current use of insulin E11.9 Active 816289967 Problem Mild single current episode of major depressive disorder F32.0 Active 82579339 Problem GERD (gastroesophageal reflux disease) K21.9 Active 709048141 Problem OAB (overactive bladder) N32.81 Active 906493129 Problem Morbid (severe) obesity due to excess calories E66.01 Active 225773008 ALLERGIES No Information ENCOUNTERS Encounter Location Date Diagnosis [place] [id number] [place] [address] Aug, [place] [id number] [place] [address] Jul, Degenerative arthritis of knee M17.9 [facility] [id number] [place] [address] Jun, Degenerative arthritis of knee M17.9 [facility] [id number] [place] [address] Jun, Degenerative arthritis of knee M17.9 [place] [id number] [place] [address] 05 Jun, 2018 Benign essential HTN I10 ; Type 2 diabetes mellitus without complication, without long-term current use of insulin E11.9 ; Acute cystitis without hematuria N30.00 ; Low back pain M54.5 ; Other chronic pain G89.29 and BMI 40.0- 44.9, adult Z68.41 [place] [address] [address] May, Neuroma of foot D36.13 and 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 [place] [address] [address] May, Degenerative arthritis of knee M17.9 [place] [address] [address] May, Encounter for immunization Z23 [place] [address] [address] Apr, [place] [address] [address] Apr, Degenerative arthritis of knee M17.9 [place] [address] [address] Mar, Degenerative arthritis of knee M17.9 [place] [address] [address] Mar, Type 2 diabetes mellitus with diabetic peripheral angiopathy without gangrene, without long-term current use of insulin E11.51 ; Benign essential HTN I10 ; Degenerative arthritis of knee M17.9 and Mild single current episode of major depressive disorder F32.0 [place] [id number] [place] [address] Feb, [place] [address] [address] Feb, Degenerative arthritis of knee M17.9 [place] [address] [address] Feb, [place] [address] [address] Jan, Degenerative arthritis of knee M17.9 [place] [address] [address] Jan, Herpes zoster without complication B02.9 and BMI 40.0-44.9, adult Z68.41 [facility] [address], [place] [address] December, Degenerative arthritis of knee M17.9 [place] [id number] [place] [address] Nov, Benign essential HTN I10 ; Type [...] Z68.41 and GERD (gastroesophageal reflux disease) K21.9 [place] [address] [place] [address] Nov, [place] [id number] [place] [address] Oct, Degenerative arthritis of knee M17.9 [place] [address], [place] [address] Oct, [place] [id number] [place] [address] Oct, Type 2 diabetes mellitus with diabetic peripheral angiopathy without gangrene, without long-term current use of insulin E11.51 and Controlled substance agreement signed Z79.899 [place] [id number] [place] [address] Oct, Degenerative arthritis of knee M17.9 [place] [place] [address], [place] [address] Sep, Type 2 diabetes mellitus with diabetic peripheral angiopathy without gangrene, without long-term current use of insulin E11.51 ; Benign essential HTN I10 ; BMI 40.0-44.9, adult Z68.41 ; Mild single current episode of major depressive disorder F32.0 ; OAB (overactive bladder) N32.81 ; Degenerative arthritis of knee M17.9 and GERD (gastroesophageal reflux disease) K21.9 [place] [id number] [place] [address] Aug, Joint pain and swelling due to Lyme disease A69.20 [place] [address] [address] Jun, [address] [address] May, 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 ; Benign essential HTN I10 ; 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 ; Body mass index (BMI) of 40.0-44.9 in adult Z68.41 and Morbid (severe) obesity due to excess calories E66.01 [place] [id number] [place] [address] May, Encounter for immunization Z23 [address] [address] May, 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 [place] [id number] [place] [address] Mar, Mild single current episode of major depressive disorder F32.0 [place] [id number] [place] [address] Mar, Joint pain and swelling due to Lyme disease A69.20 [place] [id number] [place] [address] Feb, Izzy infection B37.9 [place] [id number] [place] [address] 23 John, 2017 Insect bite (nonvenomous) of abdominal wall, initial encounter S30.861A and Joint pain and swelling due to Lyme disease A69.20 [place] [id number] [place] [address] Jan, [place] [id number] [place] [address] 16 Sep, 2016 Mild single current episode of major depressive disorder F32.0 and 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 [place] [address] [address] 13 Sep, 2016 Controlled restless leg syndrome G25.81 and Cramp of both lower extremities R25.2 [place] [address] [address] Aug, 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 ; Controlled restless leg syndrome G25.81 ; SI (stress incontinence), female N39.3 ; Benign essential HTN I10 ; 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 ; GERD (gastroesophageal reflux disease) K21.9 ; Screening cholesterol level Z13.220 and Mild single current episode of major depressive disorder F32.0 [place] [id number] [place] [address] Aug, [place] [id number] [place] [address] May, [address] [address] May, Encounter for immunization Z23 [place] [id number] [place] [address] Apr, [place] [address] [address] Apr, [place] [address] [address] Apr, SAMANTHA (secretory otitis media), right H65.91 ; 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 ; Controlled restless leg syndrome G25.81 ; Edema extremities R60.0 ; SI (stress incontinence), female N39.3 ; Benign essential HTN I10 ; Degenerative arthritis of knee M17.9 and Major depressive disorder with single episode, remission status unspecified F32.9 [facility] [address], [place] [address] Apr, OME (otitis media with effusion), right H65.91 [facility] [id number] [place] [address] Mar, [place] [id number] [place] [address] Mar, 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 ; Controlled restless leg syndrome G25.81 ; SI (stress incontinence), female N39.3 ; Benign essential HTN I10 ; GERD (gastroesophageal reflux disease) K21.9 ; Knee pain M25.569 and Major depressive disorder with single episode, remission status unspecified F32.9 [place] [id number] [place] [address] Mar, [place] [id number] [place] [address] Mar, [place] [address] [place] [address] Jan, Pre-op exam Z01.818 [facility] [address] [place] [address] Oct, Urinary tract infection N39.0 ; Benign essential HTN I10 ; Controlled restless leg syndrome G25.81 ; Edema extremities R60.0 ; Degenerative arthritis of knee M17.9 and GERD (gastroesophageal reflux disease) K21.9 [facility] [address], [place] [address] Oct, Izzy albicans infection B37.9 [place] [address] [address] Sep, [place] [id number] [place] [address] 26 Sep, 2015 UTI (urinary tract infection) N39.0 ; Benign essential HTN I10 ; 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 ; Controlled restless leg syndrome G25.81 ; Edema extremities R60.0 ; SI (stress incontinence), female N39.3 and 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 [place] [id number] [place] [address] 12 Sep, 2015 UTI (urinary tract infection) N39.0 [place] [id number] [place] [address] Aug, Pre-op evaluation Z01.818 [place] [id number] [place] [address] Aug, [place] [id number] [place] [address] Aug, [place] [id number] [place] [address] Jul, Right hip pain M25.551 ; 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 and Knee pain M25.569 [place] [id number] [place] [address] Jul, [place] [id number] [place] [address] Jun, Knee pain M25.569 ; 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 and Degenerative arthritis of knee M17.9 [place] [address] [place] [address] 16 Jun, 2015 [place] [address] [place] [address] 30 Apr, 2015 Diabetes mellitus 250.00 ; Influenza vaccine administered V04.81 ; Incontinence 788.30 ; Restless legs syndrome 333.94 ; Sciatica 724.3 ; Essential hypertension, benign 401.1 ; Edema 782.3 and Depression (emotion) 311 [facility] [address], [place] [address] Mar, Pain in joint, lower leg 719.46 and Sciatica 724.3 [facility] [id number] [place] [address] Mar, [facility] [id number] [place] [address] Feb, Pain in joint, site unspecified 719.40 ; Other urinary incontinence 788.39 ; Pain in joint, lower leg 719.46 ; Edema 782.3 ; Sciatica 724.3 ; Essential hypertension, benign 401.1 ; Depression 311 ; Diabetes mellitus 250.00 ; Incontinence 788.30 and Restless legs syndrome 333.94 [facility] [id number] [place] [address] Feb, [facility] [id number] [place] [address] Nov, [facility] [id number] [place] [address] Nov, [facility] [address] [place] [address] Oct, [facility] [id number] [place] [address] Oct, [facility] [id number] [place] [address] Aug, [facility] [id number] [place] [address] Aug, [facility] [id number] [place] [address] Aug, [facility] [address] [facility] [id number] [place] [address] Aug, [facility] [place] [facility] [address] [id number] [place] [address] Aug, [facility] [place] [facility] [address] [id number] [place] [address] Aug, [facility] [place] [facility] [address] [id number] [place] [address] Jun, [facility] [place] [facility] [address] [id number] [place] [address] Jun, [facility] [place] [facility] [address] [id number] [place] [address] Jun, [facility] [place] [facility] [address] [id number] [place] [address] Jun, [facility] [place] [facility] [address] [id number] [place] [address] Jun, [facility] [place] [facility] [address] [id number] [place] [address] Jun, [facility] [place] [facility] [address] [id number] [place] [address] May, [facility] [place] [facility] [address] [id number] [place] [address] 31 May, 2014 [facility] [place] [facility] [address] [id number] [place] [address] 16 May, 2014 [facility] [place] [facility] [address] [id number] [place] [address] 16 May, 2014 [facility] [place] [facility] [address] [id number] [place] [address] 22 Apr, 2014 [facility] [place] [facility] [address] [id number] [place] [address] 22 Apr, 2014 [facility] [place] [facility] [address] [id number] [place] [address] Apr, [facility] [place] [facility] [address] [id number] [place] [address] Apr, [facility] [place] [facility] [address] [id number] [place] [address] Mar, [facility] [place] [facility] [address] [id number] [place] [address] Mar, [facility] [place] [facility] [address] [id number] [place] [address] Mar, [facility] [place] [facility] [address] [id number] [place] [address] Mar, [facility] [place] [facility] [address] [id number] [place] [address] Mar, [facility] [place] [facility] [address] [id number] [place] [address] Mar, [facility] [place] [facility] [address] [id number] [place] [address] Feb, [facility] [place] [facility] [address] [id number] [place] [address] Feb, [facility] [place] [facility] [address] [id number] [place] [address] Jan, [facility] [place] [facility] [address] [id number] [place] [address] Jan, [facility] [place] [facility] [address] [id number] [place] [address] Jan, [facility] [place] [facility] [address] [id number] [place] [address] Jan, [facility] [place] [facility] [address] [id number] [place] [address] December, [facility] [place] [facility] [address] [id number] [place] [address] December, [facility] [place] [facility] [address] [id number] [place] [address] December, [facility] [place] [facility] [address] [id number] [place] [address] December, [facility] [place] [facility] [address] [id number] [place] [address] December, [facility] [place] [facility] [address] [id number] [place] [address] December, [facility] [place] [facility] [address] [id number] [place] [address] December, [facility] [place] [facility] [address] [id number] [place] [address] December, [facility] [place] [facility] [address] [id number] [place] [address] Nov, [facility] [place] [facility] [address] [id number] [place] [address] Nov, [facility] [place] [facility] [address] [id number] [place] [address] Nov, [facility] [place] [facility] [address] [id number] [place] [address] Nov, [facility] [place] [facility] [address] [id number] [place] [address] Oct, [facility] [place] [facility] [address] [id number] [place] [address] Oct, [facility] [place] [facility] [address] [id number] [place] [address] Oct, [facility] [place] [facility] [address] [id number] [place] [address] Oct, [facility] [place] [facility] [address] [id number] [place] [address] Oct, [facility] [place] [facility] [address] [id number] [place] [address] Oct, [facility] [place] [facility] [address] [id number] [place] [address] Oct, [facility] [place] [facility] [address] [id number] [place] [address] Oct, [facility] [place] [facility] [address] [id number] [place] [address] Sep, [facility] [place] [facility] [address] [id number] [place] [address] Sep, [facility] [place] [facility] [address] [id number] [place] [address] Sep, [facility] [place] [facility] [address] [id number] [place] [address] Sep, [facility] [place] [facility] [address] [id number] [place] [address] Sep, [facility] [place] [facility] [address] [id number] [place] [address] Aug, [facility] [place] [facility] [address] [id number] [place] [address] Aug, [facility] [place] [facility] [address] [id number] [place] [address] Jul, [facility] [place] [facility] [address] [id number] [place] [address] Jul, [facility] [place] [facility] [address] [id number], [place] [address] Jul, [facility] [place] [facility] [address] [id number] [place] [address] Jul, [facility] [place] [facility] [address] [id number] [place] [address] Jul, [facility] [place] [facility] [address] [id number], [place] [address] Jul, [facility] [place] [facility] [address] [id number], [place] [address] Jul, [facility] [address] [id number] [place] [address] Jun, [facility] [place] [facility] [address] [id number], [place] [address] Jun, [facility] [place] [facility] [address] [facility] [id number] [place] [address] Jun, [facility] [place] [facility] [address] [id number], [place] [address] Jun, [facility] [place] [facility] [address] [id number] [place] [address] Jun, [facility] [place] [facility] [address] [id number] [place] [address] Jun, [facility] [place] [facility] [id number] [address] Jun, [facility] [place] [facility] [address] [facility] [id number] [place] [address] Jun, [facility] [place] [facility] [address] [facility] [id number], [place] [address] Jun, [facility] [place] [facility] [address] [facility] [id number], [place] [address] Jun, [facility] [place] [facility] [address] [facility] [id number], [place] [address] Jun, [facility] [place] [facility] [address] [facility] [id number], [place] [address] Jun, [facility] [place] [facility] [address] [id number], [place] [address] Jun, [facility] [place] [facility] [address] [facility] [id number], [place] [address] May, [facility] [place] [facility] [address] [facility] [id number], [place] [address] May, [facility] [place] [facility] [address] [id number] [place] [address] 18 May, 2013 [facility] [place] [facility] [address] [id number] [place] [address] 18 May, 2013 [facility] [place] [facility] [address] [id number] [place] [address] 11 May, 2013 [facility] [place] [facility] [address] [id number] [place] [address] 11 May, 2013 [facility] [place] [facility] [address] [id number] [place] [address] 10 May, 2013 [facility] [place] [facility] [address] [id number] [place] [address] 10 May, 2013 [facility] [place] [facility] [address] [id number] [place] [address] 09 May, 2013 [facility] [place] [facility] [address] [id number] [place] [address] 23 Apr, 2013 [facility] [place] [facility] [address] [id number] [place] [address] 21 Apr, 2013 [facility] [place] [facility] [address] [id number] [place] [address] 11 Apr, 2013 [facility] [place] [facility] [address] [id number] [place] [address] 09 Apr, 2013 [facility] [place] [facility] [address] [id number] [place] [address] 15 Mar, 2013 [facility] [place] [facility] [address] [id number] [place] [address] 14 Mar, 2013 [facility] [place] [facility] [address] [id number] [place] [address] 02 Mar, 2013 [facility] [place] [facility] [address] [id number] [place] [address] 13 Jan, 2013 [facility] [place] [facility] [address] [id number] [place] [address] Jan, [facility] [address] [id number] [place] [address] Jan, [facility] [place] [facility] [address] [id number] [place] [address] Jan, [facility] [place] [facility] [address] [id number] [place] [address] December, [facility] [place] [facility] [address] [id number] [place] [address] Nov, [facility] [place] [facility] [address] [id number] [place] [address] Nov, [facility] [place] [facility] [address] [id number] [place] [address] Sep, [facility] [place] [facility] [address] [id number] [place] [address] Sep, [facility] [place] [facility] [address] [id number] [place] [address] Sep, [facility] [place] [facility] [address] [id number] [place] [address] Aug, [facility] [place] [facility] [address] [id number] [place] [address] Aug, [facility] [place] [facility] [address] [id number] [place] [address] 17 Aug, 2012 [facility] [place] [facility] [address] [id number] [place] [address] 16 Aug, 2012 [facility] [place] [facility] [address] [id number] [place] [address] Aug, [facility] [place] [facility] [address] [id number] [place] [address] 15 Aug, 2012 [facility] [place] [facility] [address] [id number] [place] [address] Aug, [facility] [place] [facility] [address] [id number] [place] [address] Jul, [facility] [address] [id number] [place] [address] Jul, [facility] [place] [facility] [address] [id number] [place] [address] Jun, [facility] [place] [facility] [address] [id number] [place] [address] Jun, [facility] [place] [facility] [address] [id number] [place] [address] May, [facility] [place] [facility] [address] [id number] [place] [address], [place] [address] May, [facility] [place] [facility] [address] [id number] [place] [address] May, [facility] [place] [facility] [address] [id number] [place] [address] May, [facility] [place] [facility] [address] [id number] [place] [address] 26 Apr, 2012 [facility] [place] [facility] [address] [id number] [place] [address] 24 Apr, 2012 [facility] [place] [facility] [address] [id number] [place] [address] 21 Apr, 2012 [facility] [place] [facility] [address] [id number] [place] [address] 20 Apr, 2012 [facility] [place] [facility] [address] [id number] [place] [address] 20 Apr, 2012 [facility] [place] [facility] [address] [id number] [place] [address] 19 Apr, 2012 [facility] [place] [facility] [address] [id number] [place] [address] 12 Apr, 2012 [facility] [place] [facility] [address] [id number] [place] [address] Mar, [facility] [address] [facility] [id number] [place] [address] December, [facility] [address] [facility] [id number] [place] [address] December, [facility] [address] [facility] [id number] [place] [address] December, [facility] [address] [facility] [id number] [place] [address] Sep, [facility] [address] [facility] [id number] [place] [address] Sep, [facility] [address] [facility] [id number] [address] Aug, [facility] [address] [facility] [id number] [place] [address] Aug, [facility] [address] [facility] [id number][place] [address] Aug, [facility] [address] [facility] [id number], [place] [address] Jun, [facility] [address] [facility] [id number], [place] [address] Jun, [facility] [address] [facility] [id number], [place] [address] Jun, [facility] [address] [facility] [id number], [place] [address] Jun, [facility] [address] [facility] [id number], [place] [address] Mar, [facility] [address] [facility] [id number], [place] [address] Jan, [facility] [address] [facility] [id number], [place] [address] December, IMMUNIZATIONS No Known Immunizations SOCIAL HISTORY Never Assessed REASON FOR VISIT Controlled Med Refill 08/08 PLAN OF CARE VITAL SIGNS MEDICATIONS Medication Instructions Dosage Frequency Start Date End Date Duration Status Oxycodone-Acetaminophen 5-325 MG Orally 2 times a day 1 tablet as needed 12h 14 Jul, 2018 28 days Active RESULTS No Results PROCEDURES [...]
--- OUTSIDE RECORDS SUMMARY | 2019-03-05 10:49 | XMS REPORT ---
Author Author MICHELLE ROSA Organization [facility] Address [address] [place] [address] Care Team Providers Care Doweler Name Role Phone ROSA MARTINEZ Unavailable PROBLEMS Type Condition ICD9-CM Code [id number] Code Onset Dates Condition Status SNOMED Code Problem Controlled restless leg syndrome G25.81 Active 62125713 Problem Benign essential HTN I10 Active 4455306 Problem Other chronic pain G89.29 Active 38900207 Problem Type 2 diabetes mellitus without complication, without long-term current use of insulin E11.9 Active 536887292 Problem Mild single current episode of major depressive disorder F32.0 Active 91711750 Problem GERD (gastroesophageal reflux disease) K21.9 Active 819362431 Problem OAB (overactive bladder) N32.81 Active 582046911 Problem Morbid (severe) obesity due to excess calories E66.01 Active 440418861 ALLERGIES No Information ENCOUNTERS Encounter Location Date Diagnosis [facility] [address] [address] Jun, [place] [id number] [place] [address] Jun, Benign essential HTN I10 ; Type 2 diabetes mellitus without complication, without long-term current use of insulin E11.9 ; Acute cystitis without hematuria N30.00 ; Low back pain M54.5 ; Other chronic pain G89.29 and BMI 40.0- 44.9, adult Z68.41 [facility] [address] [address] May, Neuroma of foot D36.13 and 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 [place] [address] [id number] [place] [address] May, Degenerative arthritis of knee M17.9 [place] [address] [address] May, Encounter for immunization Z23 [place] [id number] [place] [address] Apr, [place] [id number] [place] [address] Apr, Degenerative arthritis of knee M17.9 [place] [id number] [place] [address] Mar, Degenerative arthritis of knee M17.9 [place] [id number] [place] [address] Mar, Type 2 diabetes mellitus with diabetic peripheral angiopathy without gangrene, without long-term current use of insulin E11.51 ; Benign essential HTN I10 ; Degenerative arthritis of knee M17.9 and Mild single current episode of major depressive disorder F32.0 [place] [id number] [place] [address] Feb, [place] [id number] [place] [address] Feb, Degenerative arthritis of knee M17.9 [place] [id number] [place] [address] Feb, [place] [id number] [place] [address] Jan, Degenerative arthritis of knee M17.9 [place] [id number] [place] [address] Jan, Herpes zoster without complication B02.9 and BMI 40.0-44.9, adult Z68.41 [place] [id number] [place] [address] December, Degenerative arthritis of knee M17.9 [place] [address] [id number] [place] [address] Nov, Benign essential HTN I10 ; Type [...] Z68.41 and GERD (gastroesophageal reflux disease) K21.9 [place] [id number] [place] [address] Nov, [place] [address] [address] Oct, Degenerative arthritis of knee M17.9 [place] [address] [address] Oct, [place] [address] [address] Oct, Type 2 diabetes mellitus with diabetic peripheral angiopathy without gangrene, without long-term current use of insulin E11.51 and Controlled substance agreement signed Z79.899 [place] [id number] [place] [address] Oct, Degenerative arthritis of knee M17.9 [place] [address] [id number] [place] [address] Sep, Type 2 diabetes mellitus with diabetic peripheral angiopathy without gangrene, without long-term current use of insulin E11.51 ; Benign essential HTN I10 ; BMI 40.0-44.9, adult Z68.41 ; Mild single current episode of major depressive disorder F32.0 ; OAB (overactive bladder) N32.81 ; Degenerative arthritis of knee M17.9 and GERD (gastroesophageal reflux disease) K21.9 [place] [address] [id number] [place] [address] Aug, Joint pain and swelling due to Lyme disease A69.20 [place] [id number] [place] [address] Jun, [place] [address] [id number] [place] [address] May, 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 ; Benign essential HTN I10 ; 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 ; Body mass index (BMI) of 40.0-44.9 in adult Z68.41 and Morbid (severe) obesity due to excess calories E66.01 [place] [address] [id number] [place] [address] May, Encounter for immunization Z23 [place] [address] [id number] [place] [address] May, 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 [place] [address] [id number] [place] [address] Mar, Mild single current episode of major depressive disorder F32.0 [place] [address] [id number] [place] [address] Mar, Joint pain and swelling due to Lyme disease A69.20 [place] [address] [id number] [place] [address] Feb, Izzy infection B37.9 [place] [id number] [place] [address] Jan, Insect bite (nonvenomous) of abdominal wall, initial encounter S30.861A and Joint pain and swelling due to Lyme disease A69.20 [place] [address] [id number] [place] [address] Jan, [place] [id number] [place] [address] Sep, Mild single current episode of major depressive disorder F32.0 and 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 [facility] [id number] [place] [address] 13 Sep, 2017 Controlled restless leg syndrome G25.81 and Cramp of both lower extremities R25.2 [facility] [id number] [place] [address] Aug, 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 ; Controlled restless leg syndrome G25.81 ; SI (stress incontinence), female N39.3 ; Benign essential HTN I10 ; 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 ; GERD (gastroesophageal reflux disease) K21.9 ; Screening cholesterol level Z13.220 and Mild single current episode of major depressive disorder F32.0 [place] [address] [id number] [place] [address] Aug, [place] [address] [address] May, [place] [address] [address] May, Encounter for immunization Z23 [place] [address] [address] Apr, [place] [address] [id number] [place] [address] Apr, [place] [address] [id number] [place] [address] 27 Apr, 2016 SAMANTHA (secretory otitis media), right H65.91 ; 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 ; Controlled restless leg syndrome G25.81 ; Edema extremities R60.0 ; SI (stress incontinence), female N39.3 ; Benign essential HTN I10 ; Degenerative arthritis of knee M17.9 and Major depressive disorder with single episode, remission status unspecified F32.9 [facility] [id number] [place] [address] 19 Apr, 2016 OME (otitis media with effusion), right H65.91 [place] [address] [address] Mar, [place] [address] [id number] [place] [address] Mar, 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 ; Controlled restless leg syndrome G25.81 ; SI (stress incontinence), female N39.3 ; Benign essential HTN I10 ; GERD (gastroesophageal reflux disease) K21.9 ; Knee pain M25.569 and Major depressive disorder with single episode, remission status unspecified F32.9 [place] [id number] [place] [address] Mar, [place] [address] [id number] [place] [address] Mar, [place] [address] [id number] [place] [address] Jan, Pre-op exam Z01.818 [place] [address] [address] Oct, Urinary tract infection N39.0 ; Benign essential HTN I10 ; Controlled restless leg syndrome G25.81 ; Edema extremities R60.0 ; Degenerative arthritis of knee M17.9 and GERD (gastroesophageal reflux disease) K21.9 [place] [address] [address] Oct, Izzy albicans infection B37.9 [place] [address] [address] Sep, [place] [address] [place] [address] Sep, UTI (urinary tract infection) N39.0 ; Benign essential HTN I10 ; 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 ; Controlled restless leg syndrome G25.81 ; Edema extremities R60.0 ; SI (stress incontinence), female N39.3 and 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 [place] [address] [place] [id number] [place] [address] 12 Sep, 2015 UTI (urinary tract infection) N39.0 [place] [address] [place] [address] [id number] [place] [address] Aug, Pre-op evaluation Z01.[address] [address] Aug, [place] [address] [address] Aug, [address] [address] 14 Jul, 2015 Right hip pain M25.551 ; 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 and Knee pain M25.[address] [address] Jul, [place] [id number] [place] [address] Jun, Knee pain M25.569 ; 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 and Degenerative arthritis of knee M17.9 [place] [id number] [place] [address] 16 Jun, 2015 [place] [id number] [place] [address] 30 Apr, 2015 Diabetes mellitus 250.00 ; Influenza vaccine administered V04.81 ; Incontinence 788.30 ; Restless legs syndrome 333.94 ; Sciatica 724.3 ; Essential hypertension, benign 401.1 ; Edema 782.3 and Depression (emotion) [address] [place] [id number] [place] [address] 24 Mar, 2015 Pain in joint, lower leg 719.46 and Sciatica 724.3 [place] [id number] [place] [address] Mar, [facility] [address] [address] Feb, Pain in joint, site unspecified 719.40 ; Other urinary incontinence 788.39 ; Pain in joint, lower leg 719.46 ; Edema 782.3 ; Sciatica 724.3 ; Essential hypertension, benign 401.1 ; Depression 311 ; Diabetes mellitus 250.00 ; Incontinence 788.30 and Restless legs syndrome 333.94 [facility] [id number] [place] [address] Feb, [facility] [id number] [place] [address] Nov, [facility] [id number] [place] [address] Nov, [facility] [address] [id number] [place] [address] Oct, [facility] [id number] [place] [address] Oct, [facility] [id number] [place] [address] Aug, [facility] [address] [address] Aug, [facility] [id number] [place] [address] Aug, [facility] [address] [address] Aug, [facility] [id number] [place] [address] Aug, [facility] [address] [address] Aug, [facility] [id number] [place] [address] Jun, [facility] [place] [facility] [address] [id number] [place] [address] Jun, [facility] [place] [facility] [address] [id number] [place] [address] Jun, [facility] [place] [facility] [address] [id number] [place] [address] Jun, [facility] [place] [facility] [address] [id number] [place] [address] Jun, [facility] [place] [facility] [address] [id number] [place] [address] Jun, [facility] [place] [facility] [address] [id number] [place] [address] May, [facility] [place] [facility] [address] [id number] [place] [address] May, [facility] [place] [facility] [address] [id number] [place] [address] May, [facility] [place] [facility] [address] [id number] [place] [address] May, [facility] [place] [facility] [address] [id number] [place] [address] Apr, [facility] [place] [facility] [address] [id number] [place] [address] Apr, [facility] [place] [facility] [address] [id number] [address] 17 Apr, 2014 [facility] [place] [facility] [address] [id number] [place] [address] Apr, [facility] [place] [facility] [address] [id number] [place] [address] Mar, [facility] [place] [facility] [address] [id number] [place] [address] Mar, [facility] [place] [facility] [address] [id number] [place] [address] Mar, [facility] [place] [facility] [address] [id number] [place] [address] Mar, [facility] [place] [facility] [address] [id number] [place] [address] Mar, [facility] [place] [facility] [address] [id number] [place] [address] Mar, [facility] [place] [facility] [address] [id number] [place] [address] Feb, [facility] [place] [facility] [address] [id number] [place] [address] Feb, [facility] [place] [facility] [address] [id number] [place] [address] Jan, [facility] [place] [facility] [address] [id number] [place] [address] Jan, [facility] [place] [facility] [address] [id number] [place] [address] Jan, [facility] [place] [facility] [address] [id number] [place] [address] Jan, [facility] [place] [facility] [address] [id number] [place] [address] December, [facility] [place] [facility] [address] [id number] [place] [address] December, [facility] [place] [facility] [address] [id number] [place] [address] December, [facility] [place] [facility] [address] [id number] [place] [address] December, [facility] [place] [facility] [address] [id number] [place] [address] December, [facility] [place] [facility] [address] [id number] [place] [address] December, [facility] [place] [facility] [address] [id number] [place] [address] December, [facility] [place] [facility] [address] [id number] [place] [address] December, [facility] [place] [facility] [address] [id number] [place] [address] Nov, [facility] [place] [facility] [address] [id number] [place] [address] Nov, [facility] [place] [facility] [address] [id number] [place] [address] Nov, [facility] [place] [facility] [address] [id number] [place] [address] Nov, [facility] [place] [facility] [address] [id number] [place] [address] Oct, [facility] [place] [facility] [address] [id number] [place] [address] Oct, [facility] [place] [facility] [address] [id number] [place] [address] Oct, [facility] [place] [facility] [address] [id number] [place] [address] Oct, [facility] [place] [facility] [address] [id number] [place] [address] Oct, [facility] [place] [facility] [address] [id number] [place] [address] Oct, [facility] [place] [facility] [address] [id number] [place] [address] Oct, [facility] [place] [facility] [address] [id number] [place] [address] Oct, [facility] [place] [facility] [address] [id number] [place] [address] Sep, [facility] [place] [facility] [address] [id number] [place] [address] Sep, [facility] [place] [facility] [address] [id number] [place] [address] Sep, [facility] [place] [facility] [address] [id number] [place] [address] Sep, [facility] [place] [facility] [address] [facility] [id number] [place] [address] Sep, [facility] [place] [facility] [address] [id number] [place] [address] Aug, [facility] [place] [facility] [address] [id number] [place] [address] Aug, [facility] [place] [facility] [address] [id number] [place] [address] Jul, [facility] [place] [facility] [address] [id number] [place] [address] Jul, [facility] [place] [facility] [address] [id number] [place] [address] Jul, [facility] [place] [facility] [address] [id number] [place] [address] Jul, [facility] [place] [facility] [address] [id number] [place] [address] Jul, [facility] [place] [facility] [address] [facility] [id number] [place] [address] Jul, [facility] [place] [facility] [address] [id number] [place] [address] Jul, [facility] [place] [facility] [address] [id number] [place] [address] Jun, [facility] [place] [facility] [address] [id number] [place] [address] Jun, [facility] [place] [facility] [address] [facility] [id number] [place] [address] Jun, [facility] [place] [facility] [address] [id number] [place] [address] Jun, [facility] [address] [id number] [place] [address] Jun, [facility] [place] [facility] [address] [id number] [place] [address] Jun, [facility] [address] [id number] [place] [address] Jun, [facility] [place] [facility] [address] [id number] [place] [address] Jun, [facility] [address] [id number] [place] [address] Jun, [facility] [place] [facility] [address] [id number] [place] [address] Jun, [facility] [place] [facility] [address] [id number] [place] [address] Jun, [facility] [address] [id number] [place] [address] Jun, [facility] [place] [facility] [address] [id number] [place] [address] Jun, [facility] [address] [facility] [id number] [place] [address] May, [facility] [place] [facility] [address] [id number] [place] [address] 24 May, 2013 [facility] [place] [facility] [address] [id number] [place] [address] May, [facility] [place] [facility] [address] [id number] [place] [address] May, [facility] [place] [facility] [address] [facility] [id number] [place] [address] May, [facility] [place] [facility] [address] [id number] [place] [address] May, [facility] [place] [facility] [address] [id number] [place] [address] May, [facility] [place] [facility] [address] [id number] [place] [address] May, [facility] [place] [facility] [address] [id number] [place] [address] May, [facility] [place] [facility] [address] [id number] [place] [address] 23 Apr, 2013 [facility] [place] [facility] [address] [id number] [place] [address] Apr, [facility] [place] [facility] [address] [id number] [place] [address] Apr, [facility] [place] [facility] [address] [id number] [place] [address] Apr, [facility] [place] [facility] [address] [id number] [place] [address] 15 Mar, 2013 [facility] [place] [facility] [address] [id number] [place] [address] 14 Mar, 2013 [facility] [place] [facility] [address] [id number] [place] [address] Mar, [facility] [place] [facility] [address] [id number] [place] [address] Jan, [facility] [place] [facility] [address] [id number] [place] [address] Jan, [facility] [place] [facility] [address] [id number] [place] [address] Jan, [facility] [place] [facility] [address] [id number] [place] [address] Jan, [facility] [place] [facility] [address] [id number] [place] [address] December, [facility] [place] [facility] [address] [id number] [place] [address] 11 Nov, 2012 [facility] [address] [id number] [place] [address] Nov, [facility] [address] [id number] [place] [address] 19 Sep, 2012 [facility] [address] [id number] [place] [address] Sep, [facility] [address] [id number] [place] [address] Sep, [facility] [address] [id number] [place] [address] 29 Aug, 2012 [facility] [address] [id number] [place] [address] 18 Aug, 2012 [facility] [address] [id number] [place] [address] 17 Aug, 2012 [facility] [address] [id number] [place] [address] Aug, [facility] [address] [id number] [place] [address] Aug, [facility] [address] [facility] [id number] [place] [address] Aug, [facility] [address] [id number] [place] [address] Aug, [facility] [address] [id number] [place] [address] Jul, [facility] [address] [id number] [place] [address] Jul, [facility] [address] [id number] [place] [address] Jun, [facility] [address] [id number] [place] [address] Jun, [facility] [place] [facility] [address] [id number] [place] [address] May, [facility] [place] [facility] [address] [id number] [place] [address] May, [facility] [place] [facility] [address] [id number] [place] [address] May, [facility] [place] [facility] [address] [id number] [place] [address] May, [facility] [place] [facility] [address] [id number] [place] [address] 26 Apr, 2012 [facility] [place] [facility] [address] [id number] [place] [address] 24 Apr, 2012 [facility] [place] [facility] [address] [id number] [place] [address] 21 Apr, 2012 [facility] [place] [facility] [address] [id number] [place] [address] 20 Apr, 2012 [facility] [place] [facility] [address] [id number] [place] [address] 20 Apr, 2012 [facility] [place] [facility] [address] [id number] [place] [address] 19 Apr, 2012 [facility] [place] [facility] [address] [id number] [place] [address] Apr, [facility] [place] [facility] [address] [id number] [place] [address] Mar, [facility] [place] [facility] [address] [id number] [place] [address] December, [facility] [place] [facility] [address] [id number] [place] [address] December, [facility] [place] [facility] [address] [id number] [place] [address] December, [facility] [place] [facility] [address] [id number] [place] [address] 10 Sep, 2011 [facility] [address] [id number] [address] Sep, [facility] [id number] [address] Aug, [facility] [address] [id number] [address] Aug, [facility] [id number] [address] Aug, [facility] [id number] [address] Jun, [facility] [id number] [address] Jun, [facility] [id number] [address] Jun, [facility] [id number] [address] Jun, [facility] [id number] [address] Mar, [facility] [id number] [address] Jan, [facility] [id number] [address] December, IMMUNIZATIONS No Known Immunizations SOCIAL HISTORY Never Assessed REASON FOR VISIT DM foot roxanne Alvarez MA PLAN OF CARE Activity Details Follow Up 4 Weeks Reason: VITAL SIGNS Height 64 in 2018-06-13 Blood pressure systolic 146 mmHg 2018-06-13 Blood pressure diastolic 78 mmHg 2018-06-13 MEDICATIONS Unknown Medications RESULTS No Results PROCEDURES Procedure Date Ordered Result Body Site FT ARCH SUPP PREMOLD [id number]/MT EA Jun 13, 2018 INJ TENDON SHEATH/LIGAMENT Jun 13, 2018 INSTRUCTIONS MEDICATIONS ADMINISTERED No Known Medications MEDICAL (GENERAL) HISTORY Type Description Date Medical History Hypertension Medical History Neuropathy Medical History Diabetes Medical History Restless leg syndrome Surgical History carpal tunnel left hand. Surgical History Right Knee Surgery Surgical History Left Knee SOA 03/21/16 Hospitalization History Left Knee SOA 03/21/16
--- OUTSIDE RECORDS SUMMARY | 2019-03-05 10:49 | XMS REPORT ---
Author Author PHILIP CATHERINE Organization [facility] Address [address] [place] [address] Care Team Providers Care Mixer And Scaler Name Role Phone PHILIP CATHERINE Unavailable PROBLEMS Type Condition ICD9-CM Code [id number] Code Onset Dates Condition Status SNOMED Code Problem Controlled restless leg syndrome G25.81 Active 65581376 Problem Benign essential HTN I10 Active 4532980 Problem Other chronic pain G89.29 Active 35863496 Problem Type 2 diabetes mellitus without complication, without long-term current use of insulin E11.9 Active 460291840 Problem Mild single current episode of major depressive disorder F32.0 Active 34577769 Problem GERD (gastroesophageal reflux disease) K21.9 Active 666575813 Problem OAB (overactive bladder) N32.81 Active 876209521 Problem Morbid (severe) obesity due to excess calories E66.01 Active 218753701 ALLERGIES Substance Reaction Event Type Date Status Codeine Unknown Non Drug Allergy Jun, Active ENCOUNTERS Encounter Location Date Diagnosis [address] [address] Jun, [address] [address] Jun, Benign essential HTN I10 ; Type 2 diabetes mellitus without complication, without long-term current use of insulin E11.9 ; Acute cystitis without hematuria N30.00 ; Low back pain M54.5 ; Other chronic pain G89.29 and BMI 40.0- 44.9, adult Z68.[address] [address] May, Neuroma of foot D36.13 and 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 [address] May, Degenerative arthritis of knee M17.9 [facility] [address] [place] [address] May, Encounter for immunization Z23 [facility] [id number] [place] [address] Apr, [facility] [id number] [place] [address] Apr, Degenerative arthritis of knee M17.9 [place] [id number] [place] [address] Mar, Degenerative arthritis of knee M17.9 [place] [id number] [place] [address] Mar, Type 2 diabetes mellitus with diabetic peripheral angiopathy without gangrene, without long-term current use of insulin E11.51 ; Benign essential HTN I10 ; Degenerative arthritis of knee M17.9 and Mild single current episode of major depressive disorder F32.0 [place] [id number] [place] [address] Feb, [place] [id number] [place] [address] Feb, Degenerative arthritis of knee M17.9 [place] [id number] [place] [address] Feb, [place] [id number] [place] [address] Jan, Degenerative arthritis of knee M17.9 [place] [id number] [place] [address] Jan, Herpes zoster without complication B02.9 and BMI 40.0-44.9, adult Z68.41 [facility] [address] [place] [address] December, Degenerative arthritis of knee M17.9 [place] [id number] [place] [address] Nov, Benign essential HTN I10 ; Type [...] Z68.41 and GERD (gastroesophageal reflux disease) K21.9 [place] [id number] [place] [address] Nov, [facility] [id number] [place] [address] Oct, Degenerative arthritis of knee M17.9 [facility] [id number] [place] [address] Oct, [facility] [id number] [place] [address] Oct, Type 2 diabetes mellitus with diabetic peripheral angiopathy without gangrene, without long-term current use of insulin E11.51 and Controlled substance agreement signed Z79.899 [place] [id number] [place] [address] Oct, Degenerative arthritis of knee M17.9 [facility] [id number] [place] [address] Sep, Type 2 diabetes mellitus with diabetic peripheral angiopathy without gangrene, without long-term current use of insulin E11.51 ; Benign essential HTN I10 ; BMI 40.0-44.9, adult Z68.41 ; Mild single current episode of major depressive disorder F32.0 ; OAB (overactive bladder) N32.81 ; Degenerative arthritis of knee M17.9 and GERD (gastroesophageal reflux disease) K21.9 [place] [id number] [place] [address] Aug, Joint pain and swelling due to Lyme disease A69.20 [place] [id number] [place] [address] Jun, [place] [id number] [place] [address] May, 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 ; Benign essential HTN I10 ; 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 ; Body mass index (BMI) of 40.0-44.9 in adult Z68.41 and Morbid (severe) obesity due to excess calories E66.[address] [address] May, Encounter for immunization Z23 [place] [id number] [place] [address] May, 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 [place] [id number] [place] [address] Mar, Mild single current episode of major depressive disorder F32.[address] [address] Mar, Joint pain and swelling due to Lyme disease A69.20 [address] [id number] [place] [address] Feb, Izzy infection B37.9 [address] [id number] [place] [address] Jan, Insect bite (nonvenomous) of abdominal wall, initial encounter S30.861A and Joint pain and swelling due to Lyme disease A69.20 [place] [id number] [place] [address] Jan, [place] [id number] [place] [address] Sep, Mild single current episode of major depressive disorder F32.0 and 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 [place] [address] [address] 13 Sep, 2016 Controlled restless leg syndrome G25.81 and Cramp of both lower extremities R25.2 [place] [id number] [place] [address] Aug, 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 ; Controlled restless leg syndrome G25.81 ; SI (stress incontinence), female N39.3 ; Benign essential HTN I10 ; 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 ; GERD (gastroesophageal reflux disease) K21.9 ; Screening cholesterol level Z13.220 and Mild single current episode of major depressive disorder F32.0 [place] [address] [address] Aug, [place] [address] [address] May, [place] [address] [address] May, Encounter for immunization Z23 [place] [address] [address] Apr, [place] [address] [address] Apr, [place] [address] [address] Apr, SAMANTHA (secretory otitis media), right H65.91 ; 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 ; Controlled restless leg syndrome G25.81 ; Edema extremities R60.0 ; SI (stress incontinence), female N39.3 ; Benign essential HTN I10 ; Degenerative arthritis of knee M17.9 and Major depressive disorder with single episode, remission status unspecified F32.9 [place] [address] [address] Apr, OME (otitis media with effusion), right H65.91 [facility] [id number] [address] Mar, [place] [id number] [place] [address] Mar, 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 ; Controlled restless leg syndrome G25.81 ; SI (stress incontinence), female N39.3 ; Benign essential HTN I10 ; GERD (gastroesophageal reflux disease) K21.9 ; Knee pain M25.569 and Major depressive disorder with single episode, remission status unspecified F32.9 [place] [id number] [place] [address] Mar, [place] [id number] [place] [address] Mar, [place] [id number] [place] [address] Jan, Pre-op exam Z01.818 [place] [id number] [place] [address] Oct, Urinary tract infection N39.0 ; Benign essential HTN I10 ; Controlled restless leg syndrome G25.81 ; Edema extremities R60.0 ; Degenerative arthritis of knee M17.9 and GERD (gastroesophageal reflux disease) K21.9 [place] [address] [place] [address] Oct, Izzy albicans infection B37.9 [place] [address] [place] [address] Sep, [place] [id number] [place] [address] Sep, UTI (urinary tract infection) N39.0 ; Benign essential HTN I10 ; 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 ; Controlled restless leg syndrome G25.81 ; Edema extremities R60.0 ; SI (stress incontinence), female N39.3 and 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 [place] [id number] [place] [address] 12 Sep, 2015 UTI (urinary tract infection) N39.0 [place] [id number] [place] [address] 11 Aug, 2015 Pre-op evaluation Z01.818 [place] [address] [address] Aug, [place] [address] [address] Aug, [place] [address] [address] 14 Jul, 2015 Right hip pain M25.551 ; 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 and Knee pain M25.[address] [address] Jul, [address] [address] Jun, Knee pain M25.569 ; 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 and Degenerative arthritis of knee M17.9 [place] [id number] [place] [address] Jun, [place] [id number] [place] [address] 30 Apr, 2015 Diabetes mellitus 250.00 ; Influenza vaccine administered V04.81 ; Incontinence 788.30 ; Restless legs syndrome 333.94 ; Sciatica 724.3 ; Essential hypertension, benign 401.1 ; Edema 782.3 and Depression (emotion) 311 [place] [id number] [place] [address] 24 Mar, 2015 Pain in joint, lower leg 719.46 and Sciatica 724.3 [place] [address] [address] Mar, [facility] [id number] [place] [address] Feb, Pain in joint, site unspecified 719.40 ; Other urinary incontinence 788.39 ; Pain in joint, lower leg 719.46 ; Edema 782.3 ; Sciatica 724.3 ; Essential hypertension, benign 401.1 ; Depression 311 ; Diabetes mellitus 250.00 ; Incontinence 788.30 and Restless legs syndrome 333.94 [facility] [address] [address] Feb, [facility] [id number] [place] [address] Nov, [facility] [id number] [address] Nov, [facility] [id number] [place] [address] Oct, [facility] [address] [address] Oct, [facility] [address] [address] Aug, [facility] [address] [address] Aug, [facility] [address] [address] Aug, [facility] [address] [address] Aug, [facility] [address] [address] Aug, [facility] [address] [address] Aug, [facility] [id number] [place] [address] [place] [address] Jun, [facility] [place] [facility] [address] [id number] [place] [address] Jun, [facility] [place] [facility] [address] [id number] [place] [address] Jun, [facility] [place] [facility] [address] [id number] [place] [address] Jun, [facility] [place] [facility] [address] [id number] [place] [address] Jun, [facility] [place] [facility] [address] [id number] [place] [address] Jun, [facility] [place] [facility] [address] [id number] [place] [address] May, [facility] [place] [facility] [address] [id number] [place] [address] May, [facility] [place] [facility] [address] [id number] [place] [address] May, [facility] [place] [facility] [address] [id number] [place] [address] May, [facility] [place] [facility] [address] [id number] [place] [address] Apr, [facility] [place] [facility] [address] [id number] [place] [address] Apr, [facility] [place] [facility] [address] [id number] [place] [address] Apr, [facility] [place] [facility] [address] [id number] [place] [address] Apr, [facility] [place] [facility] [address] [id number] [place] [address] Mar, [facility] [place] [facility] [address] [id number] [place] [address] Mar, [facility] [place] [facility] [address] [id number] [place] [address] Mar, [facility] [place] [facility] [address] [id number] [place] [address] Mar, [facility] [place] [facility] [address] [id number] [place] [address] Mar, [facility] [place] [facility] [address] [id number] [place] [address] Mar, [facility] [place] [facility] [address] [id number] [place] [address] Feb, [facility] [place] [facility] [address] [id number] [place] [address] Feb, [facility] [place] [facility] [address] [id number] [place] [address] Jan, [facility] [place] [facility] [address] [id number] [place] [address] Jan, [facility] [place] [facility] [address] [id number] [place] [address] Jan, [facility] [place] [facility] [address] [id number] [place] [address] Jan, [facility] [place] [facility] [address] [id number] [place] [address] December, [facility] [place] [facility] [address] [id number] [place] [address] December, [facility] [place] [facility] [address] [id number] [place] [address] December, [facility] [place] [facility] [address] [id number] [place] [address] December, [facility] [place] [facility] [address] [id number] [place] [address] December, [facility] [place] [facility] [address] [id number] [place] [address] December, [facility] [place] [facility] [address] [id number] [place] [address] December, [facility] [place] [facility] [address] [id number] [place] [address] December, [facility] [place] [facility] [address] [id number] [place] [address] Nov, [facility] [place] [facility] [address] [id number] [place] [address] Nov, [facility] [place] [facility] [address] [id number] [place] [address] Nov, [facility] [place] [facility] [address] [id number] [place] [address] Nov, [facility] [place] [facility] [address] [id number] [place] [address] Oct, [facility] [place] [facility] [address] [id number] [place] [address] Oct, [facility] [place] [facility] [address] [id number] [place] [address] Oct, [facility] [place] [facility] [address] [id number] [place] [address] Oct, [facility] [place] [facility] [address] [id number] [place] [address] Oct, [facility] [place] [facility] [address] [id number] [place] [address] Oct, [facility] [place] [facility] [address] [id number] [place] [address] Oct, [facility] [place] [facility] [address] [id number] [place] [address] Oct, [facility] [place] [facility] [address] [id number] [place] [address] Sep, [facility] [place] [facility] [address] [id number] [place] [address] Sep, [facility] [address] [id number] [place] [address] Sep, [facility] [place] [facility] [address] [id number] [place] [address] Sep, [facility] [address] [id number] [place] [address] Sep, [facility] [place] [facility] [address] [id number] [place] [address] Aug, [facility] [place] [facility] [address] [id number] [place] [address] Aug, [facility] [place] [facility] [address] [id number] [place] [address] Jul, [facility] [place] [facility] [address] [id number] [place] [address] Jul, [facility] [address] [id number] [place] [address] Jul, [facility] [place] [facility] [address] [id number] [place] [address] Jul, [facility] [place] [facility] [address] [id number] [place] [address] Jul, [facility] [place] [facility] [address] [id number] [place] [address] Jul, [facility] [place] [facility] [address] [id number] [place] [address] Jul, [facility] [place] [facility] [address] [id number] [place] [address] Jun, [facility] [place] [facility] [address] [id number] [place] [address] Jun, [facility] [place] [facility] [address] [id number] [place] [address] Jun, [facility] [place] [facility] [address] [id number] [place] [address] Jun, [facility] [place] [facility] [address] [id number] [place] [address] Jun, [facility] [place] [facility] [address] [id number] [place] [address] Jun, [facility] [place] [facility] [address] [id number] [place] [address] Jun, [facility] [place] [facility] [address] [id number] [place] [address] Jun, [facility] [place] [facility] [address] [id number] [address] Jun, [facility] [place] [facility] [address] [id number] [place] [address] Jun, [facility] [place] [facility] [address] [id number], [place] [address] Jun, [facility] [place] [facility] [address] [id number] [place] [address] Jun, [facility] [place] [facility] [address] [id number] [address] Jun, [facility] [place] [facility] [address] [id number], [place] [address] May, [facility] [place] [facility] [address] [id number], [place] [address] May, [facility] [place] [facility] [address] [id number], [place] [address] May, [facility] [place] [facility] [address] [id number], [place] [address] May, [facility] [place] [facility] [address] [id number], [place] [address] May, [facility] [place] [facility] [address] [id number] [place] [address] 11 May, 2013 [facility] [place] [facility] [address] [id number] [place] [address] 10 May, 2013 [facility] [place] [facility] [address] [id number] [place] [address] 10 May, 2013 [facility] [place] [facility] [address] [id number] [place] [address] 09 May, 2013 [facility] [place] [facility] [address] [id number] [place] [address] 23 Apr, 2013 [facility] [place] [facility] [address] [id number] [place] [address] 21 Apr, 2013 [facility] [place] [facility] [address] [id number] [place] [address] 11 Apr, 2013 [facility] [place] [facility] [address] [id number] [place] [address] 09 Apr, 2013 [facility] [place] [facility] [address] [id number] [place] [address] 15 Mar, 2013 [facility] [place] [facility] [address] [id number] [place] [address] 14 Mar, 2013 [facility] [place] [facility] [address] [id number] [place] [address] Mar, [facility] [place] [facility] [address] [id number] [place] [address] 13 Jan, 2013 [facility] [place] [facility] [address] [id number] [place] [address] Jan, [facility] [place] [facility] [address] [id number] [place] [address] 04 Jan, 2013 [facility] [place] [facility] [address] [id number] [place] [address] 03 Jan, 2013 [facility] [place] [facility] [address] [id number] [place] [address] December, [facility] [place] [facility] [address] [id number] [place] [address] Nov, [facility] [address] [id number] [place] [address] Nov, [facility] [address] [id number] [place] [address] 19 Sep, 2012 [facility] [address] [id number] [place] [address] Sep, [facility] [address] [id number] [place] [address] Sep, [facility] [address] [id number] [place] [address] 29 Aug, 2012 [facility] [address] [id number] [place] [address] 18 Aug, 2012 [facility] [address] [id number] [place] [address] 17 Aug, 2012 [facility] [address] [id number] [place] [address] Aug, [facility] [address] [id number] [place] [address] 16 Aug, 2012 [facility] [address] [id number] [place] [address] 15 Aug, 2012 [facility] [address] [id number] [place] [address] Aug, [facility] [place] [facility] [address] [id number] [place] [address] Jul, [facility] [place] [facility] [address] [id number] [place] [address] Jul, [facility] [address] [id number] [place] [address] Jun, [facility] [address] [id number] [place] [address] Jun, [facility] [place] [facility] [address] [id number] [place] [address] May, [facility] [place] [facility] [address] [id number] [place] [address] May, [facility] [place] [facility] [address] [id number] [place] [address] May, [facility] [place] [facility] [address] [id number] [place] [address] May, [facility] [place] [facility] [address] [id number] [place] [address] 26 Apr, 2012 [facility] [place] [facility] [address] [id number] [place] [address] 24 Apr, 2012 [facility] [place] [facility] [address] [id number] [place] [address] 21 Apr, 2012 [facility] [place] [facility] [address] [id number] [place] [address] 20 Apr, 2012 [facility] [place] [facility] [address] [id number] [place] [address] 20 Apr, 2012 [facility] [place] [facility] [address] [id number] [place] [address] 19 Apr, 2012 [facility] [place] [facility] [address] [id number] [place] [address] Apr, [facility] [place] [facility] [address] [id number] [place] [address] Mar, [facility] [place] [facility] [address] [id number] [place] [address] December, [facility] [place] [facility] [address] [id number] [place] [address] December, [facility] [place] [facility] [address] [id number] [place] [address] December, [facility] [place] [facility] [id number] [id number] 10 Sep, 2011 [facility] [address] [address] Sep, [facility] [address] [address] Aug, [facility] [address] [address] Aug, [facility] [address] [address] Aug, [facility] [id number] [place] [id number] Jun, [facility] [id number] [place] [id number] Jun, [facility] [id number] [place] [id number] Jun, [facility] [address] [address] Jun, [facility] [address] [address] Mar, [facility] [address] [address] Jan, [facility] [address] [address] December, IMMUNIZATIONS No Known Immunizations SOCIAL HISTORY Never Assessed REASON FOR VISIT New Provider Visit - dr sangeetha Weber [place] , wants urine checked for possible UT I - did long dip UA-- Gus Bal , has burning when urinating Gus Bal PLAN OF CARE Activity Details Follow Up 3 Months Reason: VITAL SIGNS Height 64 in 2018-06-30 Weight 244 lbs 2018-06-30 Temperature 97.6 degrees Fahrenheit 2018-06-30 Heart Rate 76 bpm 2018-06-30 Respiratory Rate 20 2018-06-30 BMI 41.88 kg/m2 2018-06-30 Blood pressure systolic 130 mmHg 2018-06-30 Blood pressure diastolic 86 mmHg 2018-06-30 MEDICATIONS Medication Instructions Dosage Frequency Start Date End Date Duration Status Oxybutynin Chloride 5 mg Orally Twice a day TAKE ONE TABLET 12h Active MetFORMIN HCl ER 500 mg Orally 2 times a day TAKE ONE TABLET BY MOUTH TWICE DAILY 12h Active Venlafaxine HCl ER 75 MG Orally Once a day TAKE ONE CAPSULE BY MOUTH DAILY WITH FOOD 24h 90 days Active Pravastatin Sodium 20 MG Active Celecoxib 200 mg Orally Once a day 1 capsule with food 24h 13 Mar, 2018 11 Jul, 2018 30 day(s) Active Oxycodone-Acetaminophen 5-325 MG Orally 2 times a day 1 tablet as needed 12h 19 May, 2018 28 days Active Quinapril HCl 20 MG TAKE ONE TABLET BY MOUTH ONCE DAILY 30 Active Omeprazole 40 mg Orally Once a day 1 capsule 24h 90 Active Bactrim DS 800-160 MG Orally Twice a day 1 tablet 12h 05 Jun, 2018 8 Jun, 2018 3 days Active RESULTS No Results PROCEDURES Procedure Date Ordered Result Body [facility] Jun [facility], 2018 VENIPUNCT, ROUTINE* Jun 30, 2018 URINALYSIS, AUTO, W/O SCOPE Jun 30, 2018 INSTRUCTIONS MEDICATIONS ADMINISTERED No Known Medications MEDICAL (GENERAL) HISTORY Type Description Date Medical History Hypertension Medical History Neuropathy Medical History Diabetes Medical History Restless leg syndrome Surgical History carpal tunnel left hand. Surgical History Right Knee Surgery Surgical History Left Knee SOA 03/21/16 Hospitalization History Left Knee SOA 03/21/16
--- OUTSIDE RECORDS SUMMARY | 2019-03-05 10:50 | XMS REPORT ---
Author Author LUIS BUI [facility] Address [address] [place] [address] Care Team Providers Care Swage Tender Name Role Phone LUIS BUI Unavailable PROBLEMS Type Condition ICD9-CM Code [id number] Code Onset Dates Condition Status SNOMED Code Problem Type 2 diabetes mellitus with diabetic peripheral angiopathy without gangrene, without long-term current use of insulin E11.51 Active 574205294 Problem Controlled restless leg syndrome G25.81 Active 97277520 Problem Benign essential HTN I10 Active 0351398 Problem OAB (overactive bladder) N32.81 Active 443677773 Problem Body mass index (BMI) of 40.0-44.9 in adult Z68.41 Active 027159105 Problem GERD (gastroesophageal reflux disease) K21.9 Active 649633745 Problem Degenerative arthritis of knee M17.9 Active 521145219 Problem Morbid (severe) obesity due to excess calories E66.01 Active 632226851 Problem Mild single current episode of major depressive disorder F32.0 Active 05765658 ALLERGIES No Information ENCOUNTERS Encounter Location Date Diagnosis [place] [id number] [place] [address] May, Encounter for immunization Z23 [facility] [address] [place] [id number] [place] [address] Apr, [place] [id number] [place] [id number] [place] [address] Apr, Degenerative arthritis of knee M17.9 [facility] [id number] [place] [address] Mar, Degenerative arthritis of knee M17.9 [place] [address] [place] [id number] [place] [address] Mar, Type 2 diabetes mellitus with diabetic peripheral angiopathy without gangrene, without long-term current use of insulin E11.51 ; Benign essential HTN I10 ; Degenerative arthritis of knee M17.9 and Mild single current episode of major depressive disorder F32.0 [place] [address] [place] [id number] [place] [address] Feb, [place] [address] [id number] [place] [address] Feb, Degenerative arthritis of knee M17.9 [place] [address] [place] [id number] [place] [address] Feb, [place] [address] [id number] [place] [address] Jan, Degenerative arthritis of knee M17.9 [place] [id number] [place] [address] Jan, Herpes zoster without complication B02.9 and BMI 40.0-44.9, adult Z68.41 [place] [address] [place] [id number] [place] [address] December, Degenerative arthritis of knee M17.9 [place] [address] [place] [id number] [place] [address] Nov, Benign essential HTN I10 ; Type [...] Z68.41 and GERD (gastroesophageal reflux disease) K21.9 [place] [id number] [place] [address] Nov, [place] [address] [place] [id number] [place] [address] Oct, Degenerative arthritis of knee M17.9 [place] [address] [place] [id number] [place] [address] Oct, [place] [address] [place] [id number] [place] [address] Oct, Type 2 diabetes mellitus with diabetic peripheral angiopathy without gangrene, without long-term current use of insulin E11.51 and Controlled substance agreement signed Z79.899 [place] [address] [address] Oct, Degenerative arthritis of knee M17.9 [place] [address] [address] Sep, Type 2 diabetes mellitus with diabetic peripheral angiopathy without gangrene, without long-term current use of insulin E11.51 ; Benign essential HTN I10 ; BMI 40.0-44.9, adult Z68.41 ; Mild single current episode of major depressive disorder F32.0 ; OAB (overactive bladder) N32.81 ; Degenerative arthritis of knee M17.9 and GERD (gastroesophageal reflux disease) K21.9 [place] [address] [place] [id number] [place] [address] Aug, Joint pain and swelling due to Lyme disease A69.20 [place] [address] [place] [id number] [place] [address] Jun, [address] [address] May, 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 ; Benign essential HTN I10 ; 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 ; Body mass index (BMI) of 40.0-44.9 in adult Z68.41 and Morbid (severe) obesity due to excess calories E66.01 [place] [address] [place] [id number] [place] [address] 13 May, 2017 Encounter for immunization Z23 [address] [place] [address] May, 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 [place] [address] [address] Mar, Mild single current episode of major depressive disorder F32.[address] [address] Mar, Joint pain and swelling due to Lyme disease A69.[address] [address] Feb, Izzy infection B37.[address] [address] Jan, Insect bite (nonvenomous) of abdominal wall, initial encounter S30.861A and Joint pain and swelling due to Lyme disease A69.[address] [address] Jan, [address] [address] Sep, Mild single current episode of major depressive disorder F32.0 and 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 [place] [address] [place] [id number] [place] [address] Sep, Controlled restless leg syndrome G25.81 and Cramp of both lower extremities R25.2 [place] [address] [place] [id number] [place] [address] Aug, 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 ; Controlled restless leg syndrome G25.81 ; SI (stress incontinence), female N39.3 ; Benign essential HTN I10 ; 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 ; GERD (gastroesophageal reflux disease) K21.9 ; Screening cholesterol level Z13.220 and Mild single current episode of major depressive disorder F32.0 [place] [address] [place] [id number] [place] [address] Aug, [facility] [id number] [place] [address] May, [place] [address] [place] [id number] [place] [address] May, Encounter for immunization Z23 [facility] [address] [place] [id number] [place] [address] Apr, [place] [address] [place] [id number] [place] [address] Apr, [place] [address] [place] [id number] [place] [address] Apr, SAMANTHA (secretory otitis media), right H65.91 ; 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 ; Controlled restless leg syndrome G25.81 ; Edema extremities R60.0 ; SI (stress incontinence), female N39.3 ; Benign essential HTN I10 ; Degenerative arthritis of knee M17.9 and Major depressive disorder with single episode, remission status unspecified F32.9 [place] [address] [place] [id number] [place] [address] Apr, OME (otitis media with effusion), right H65.91 [place] [address] [place] [id number] [place] [address] Mar, [place] [address] [place] [id number] [place] [address] Mar, 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 ; Controlled restless leg syndrome G25.81 ; SI (stress incontinence), female N39.3 ; Benign essential HTN I10 ; GERD (gastroesophageal reflux disease) K21.9 ; Knee pain M25.569 and Major depressive disorder with single episode, remission status unspecified F32.9 [place] [address] [place] [id number] [place] [address] Mar, [place] [address] [place] [address] [address] Mar, [facility] [address] [address] Jan, Pre-op exam Z01.818 [facility] [address] [address] Oct, Urinary tract infection N39.0 ; Benign essential HTN I10 ; Controlled restless leg syndrome G25.81 ; Edema extremities R60.0 ; Degenerative arthritis of knee M17.9 and GERD (gastroesophageal reflux disease) K21.9 [place] [address] [address] Oct, Izzy albicans infection B37.9 [place] [address] [address] Sep, [place] [address] [place] [id number] [place] [address] Sep, UTI (urinary tract infection) N39.0 ; Benign essential HTN I10 ; 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 ; Controlled restless leg syndrome G25.81 ; Edema extremities R60.0 ; SI (stress incontinence), female N39.3 and 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 [place] [address] [address] Sep, UTI (urinary tract infection) N39.0 [facility] [address] [address] Aug, Pre-op evaluation Z01.818 [place] [address] [place] [address] Aug, [place] [address] [address] Aug, [facility] [address] [address] Jul, Right hip pain M25.551 ; 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 and Knee pain M25.569 [place] [address] [place] [id number] [place] [address] 08 Jul, 2015 [place] [address] [place] [id number] [place] [address] 27 Jun, 2015 Knee pain M25.569 ; 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 and Degenerative arthritis of knee M17.9 [place] [address] [address] 16 Jun, 2015 [place] [address] [address] 30 Apr, 2015 Diabetes mellitus 250.00 ; Influenza vaccine administered V04.81 ; Incontinence 788.30 ; Restless legs syndrome 333.94 ; Sciatica 724.3 ; Essential hypertension, benign 401.1 ; Edema 782.3 and Depression (emotion) 311 [place] [address] [address] Mar, Pain in joint, lower leg 719.46 and Sciatica 724.3 [place] [address] [place] [id number] [place] [address] Mar, [place] [address] [place] [id number] [place] [address] Feb, Pain in joint, site unspecified 719.40 ; Other urinary incontinence 788.39 ; Pain in joint, lower leg 719.46 ; Edema 782.3 ; Sciatica 724.3 ; Essential hypertension, benign 401.1 ; Depression 311 ; Diabetes mellitus 250.00 ; Incontinence 788.30 and Restless legs syndrome 333.94 [place] [address] [place] [id number] [place] [address] Feb, [place] [address] [place] [id number] [place] [address] Nov, [facility] [place] [facility] [address] [id number] [place] [address] Nov, [facility] [place] [facility] [address] [id number] [place] [address] Oct, [facility] [place] [facility] [address] [id number] [place] [address] Oct, [facility] [place] [facility] [address] [id number] [place] [address] Aug, [facility] [place] [facility] [address] [id number] [place] [address] Aug, [facility] [place] [facility] [address] [id number] [place] [address] Aug, [facility] [place] [facility] [address] [id number] [place] [address] Aug, [facility] [place] [facility] [address] [id number] [place] [address] Aug, [facility] [place] [facility] [address] [id number] [place] [address] Aug, [facility] [place] [facility] [address] [id number] [place] [address] Jun, [facility] [place] [facility] [address] [id number] [place] [address] Jun, [facility] [place] [facility] [address] [id number] [place] [address] Jun, [facility] [place] [facility] [address] [id number] [place] [address] Jun, [facility] [place] [facility] [address] [id number] [place] [address] Jun, [facility] [place] [facility] [address] [id number] [place] [address] 04 Jun, 2014 [facility] [place] [facility] [address] [id number] [place] [address] May, [facility] [place] [facility] [address] [id number] [place] [address] May, [facility] [place] [facility] [address] [id number] [place] [address] May, [facility] [place] [facility] [address] [id number] [place] [address] May, [facility] [place] [facility] [address] [id number] [place] [address] Apr, [facility] [place] [facility] [address] [id number] [place] [address] Apr, [facility] [place] [facility] [address] [id number] [place] [address] Apr, [facility] [place] [facility] [address] [id number] [place] [address] Apr, [facility] [place] [facility] [address] [id number] [place] [address] Mar, [facility] [place] [facility] [address] [id number] [place] [address] Mar, [facility] [place] [facility] [address] [id number] [place] [address] Mar, [facility] [place] [facility] [address] [id number] [place] [address] Mar, [facility] [place] [facility] [address] [id number], [place] [address] Mar, [facility] [place] [facility] [address] [id number] [place] [address] Mar, [facility] [place] [facility] [address] [id number] [place] [address] Feb, [facility] [place] [facility] [address] [id number] [place] [address] Feb, [facility] [place] [facility] [address] [id number] [place] [address] Jan, [facility] [place] [facility] [address] [id number] [place] [address] Jan, [facility] [place] [facility] [address] [id number] [place] [address] Jan, [facility] [place] [facility] [address] [id number] [place] [address] Jan, [facility] [place] [facility] [address] [id number] [place] [address] December, [facility] [place] [facility] [address] [id number] [place] [address] December, [facility] [place] [facility] [address] [id number] [place] [address] December, [facility] [place] [facility] [address] [id number] [place] [address] December, [facility] [place] [facility] [address] [id number] [place] [address] December, [facility] [place] [facility] [address] [id number] [place] [address] December, [facility] [place] [facility] [address] [id number] [place] [address] December, [facility] [place] [facility] [address] [id number] [place] [address] December, [facility] [place] [facility] [address] [id number] [place] [address] Nov, [facility] [place] [facility] [address] [id number] [place] [address] Nov, [facility] [place] [facility] [address] [id number] [place] [address] Nov, [facility] [place] [facility] [address] [id number] [place] [address] Nov, [facility] [place] [facility] [address] [id number] [place] [address] Oct, [facility] [place] [facility] [address] [id number] [place] [address] Oct, [facility] [place] [facility] [address] [id number] [place] [address] Oct, [facility] [place] [facility] [address] [id number] [place] [address] Oct, [facility] [place] [facility] [address] [id number] [place] [address] Oct, [facility] [place] [facility] [address] [id number] [place] [address] Oct, [facility] [place] [facility] [address] [id number] [place] [address] Oct, [facility] [place] [facility] [address] [id number] [place] [address] Oct, [facility] [place] [facility] [address] [id number] [place] [address] Sep, [facility] [place] [facility] [address] [id number] [place] [address] Sep, [facility] [place] [facility] [address] [id number] [place] [address] Sep, [facility] [place] [facility] [address] [id number] [place] [address] Sep, [facility] [place] [facility] [address] [id number] [place] [address] Sep, [facility] [place] [facility] [address] [id number] [place] [address] Aug, [facility] [place] [facility] [address] [id number] [place] [address] Aug, [facility] [place] [facility] [address] [id number] [place] [address] Jul, [facility] [address] [id number] [place] [address] Jul, [facility] [address] [id number], [place] [address] Jul, [facility] [address] [id number] [place] [address] Jul, [facility] [place] [facility] [address] [id number] [place] [address] Jul, [facility] [address] [id number] [place] [address] Jul, [facility] [address] [id number] [place] [address] Jul, [facility] [address] [id number], [place] [address] Jun, [facility] [address] [id number], [place] [address] Jun, [facility] [address] [id number] [place] [address] Jun, [facility] [address] [facility] [id number] [place] [address] Jun, [facility] [address] [id number], [place] [address] Jun, [facility] [place] [facility] [address] [id number], [place] [address] Jun, [facility] [place] [facility] [address] [id number], [place] [address] Jun, [facility] [place] [facility] [address] [id number], [place] [address] Jun, [facility] [place] [facility] [address] [id number], [place] [address] Jun, [facility] [place] [facility] [address] [id number] [place] [address] Jun, [facility] [place] [facility] [address] [id number] [place] [address] Jun, [facility] [place] [facility] [address] [id number] [place] [address] Jun, [facility] [place] [facility] [address] [id number] [place] [address] Jun, [facility] [place] [facility] [address] [id number] [place] [address] May, [facility] [place] [facility] [address] [id number] [place] [address] May, [facility] [place] [facility] [address] [id number] [place] [address] May, [facility] [place] [facility] [address] [id number] [place] [address] May, [facility] [place] [facility] [address] [id number] [place] [address] May, [facility] [place] [facility] [address] [id number] [place] [address] May, [facility] [place] [facility] [address] [id number] [place] [address] May, [facility] [place] [facility] [address] [id number] [place] [address] 10 May, 2013 [facility] [place] [facility] [address] [id number] [place] [address] 09 May, 2013 [facility] [place] [facility] [address] [id number] [place] [address] 23 Apr, 2013 [facility] [place] [facility] [address] [id number] [place] [address] 21 Apr, 2013 [facility] [place] [facility] [address] [id number] [place] [address] Apr, [facility] [address] [id number] [place] [address] 09 Apr, 2013 [facility] [place] [facility] [address] [id number] [place] [address] 15 Mar, 2013 [facility] [place] [facility] [address] [id number] [place] [address] Mar, [facility] [place] [facility] [address] [id number] [place] [address] Mar, [facility] [place] [facility] [address] [id number] [place] [address] Jan, [facility] [place] [facility] [address] [id number] [place] [address] Jan, [facility] [place] [facility] [address] [id number] [place] [address] Jan, [facility] [place] [facility] [address] [id number] [place] [address] Jan, [facility] [place] [facility] [address] [id number] [place] [address] December, [facility] [place] [facility] [address] [id number] [place] [address] Nov, [facility] [place] [facility] [address] [id number], [place] [address] Nov, [facility] [place] [facility] [address] [id number], [place] [address] Sep, [facility] [place] [facility] [address] [id number] [place] [address] Sep, [facility] [place] [facility] [address] [id number], [place] [address] Sep, [facility] [place] [facility] [address] [id number] [place] [address] Aug, [facility] [place] [facility] [address] [id number] [place] [address] 18 Aug, 2012 [facility] [address] [id number] [place] [address] 17 Aug, 2012 [facility] [address] [id number] [place] [address] 16 Aug, 2012 [facility] [address] [id number] [place] [address] 16 Aug, 2012 [facility] [address] [id number] [place] [address] 15 Aug, 2012 [facility] [address] [id number] [place] [address] Aug, [facility] [address] [id number] [place] [address] Jul, [facility] [address] [id number] [place] [address] Jul, [facility] [address] [id number] [place] [address] Jun, [facility] [address] [id number] [place] [address] Jun, [facility] [address] [id number] [place] [address] May, [facility] [address] [id number] [place] [address] May, [facility] [address] [id number] [place] [address] May, [facility] [place] [facility] [address] [id number] [place] [address] May, [facility] [address] [id number] [place] [address] Apr, [facility] [address] [id number] [place] [address] 24 Apr, 2012 [facility] [address] [id number] [place] [address] 21 Apr, 2012 [facility] [place] [facility] [address] [id number] [place] [address] 20 Apr, 2012 [facility] [place] [facility] [address] [id number] [place] [address] 20 Apr, 2012 [facility] [place] [facility] [address] [id number] [place] [address] 19 Apr, 2012 [facility] [place] [facility] [address] [id number] [place] [address] Apr, [facility] [place] [facility] [address] [id number] [place] [address] Mar, [facility] [place] [facility] [address] [id number] [place] [address] December, [facility] [place] [facility] [address] [id number] [place] [address] December, [facility] [place] [facility] [address] [id number] [place] [address] December, [facility] [place] [facility] [address] [id number] [place] [address] Sep, [facility] [place] [facility] [address] [id number] [place] [address] Sep, [facility] [place] [facility] [address] [id number] [place] [address] Aug, [facility] [place] [facility] [address] [id number] [place] [address] Aug, [facility] [place] [facility] [address] [id number] [place] [address] Aug, [facility] [place] [facility] [address] [id number] [place] [address] Jun, [facility] [place] [facility] [address] [id number], [place] [address] Jun, [facility] [address] [id number], [place] [address] Jun, [facility] [address] [id number], [place] [address] Jun, [facility] [address] [id number], [place] [address] Mar, [facility] [address] [id number], [place] [address] Jan, [facility] [address] [id number] [id number] December, IMMUNIZATIONS Vaccine Route Administration Date Status FLULAVAL QUAD 0.5ML (6 MO & UP) 2018 IM Intramuscular Jun 06, 2018 Administered SOCIAL HISTORY Never Assessed REASON FOR VISIT Flu shot CBrumbackRN PLAN OF CARE VITAL SIGNS MEDICATIONS Unknown Medications RESULTS No Results PROCEDURES Procedure Date Ordered Result Body Site FLULAVAL QUAD 0.5ML (6 MO AND UP) 2018 Jun 06, 2018 SINGLE IMMUNIZATION ADMIN Jun 06, 2018 INSTRUCTIONS MEDICATIONS ADMINISTERED No Known Medications MEDICAL (GENERAL) HISTORY Type Description Date Medical History Hypertension Medical History Neuropathy Medical History Diabetes Medical History Restless leg syndrome Surgical History carpal tunnel left hand. Surgical History Right Knee Surgery Surgical History Left Knee SOA 03/21/16 Hospitalization History Left Knee SOA 03/21/16
--- OUTSIDE RECORDS SUMMARY | 2019-03-05 10:50 | XMS REPORT ---
Author Author TORRES Felix [facility] Address [address] [place] [address] Care Team Providers Care Bag Shaker Name Role Phone TORRES Felix Unavailable PROBLEMS ALLERGIES No Information ENCOUNTERS IMMUNIZATIONS No Known Immunizations SOCIAL HISTORY No smoking Hx information available REASON FOR VISIT PLAN OF CARE VITAL SIGNS MEDICATIONS Unknown Medications RESULTS No Results PROCEDURES No Known procedures INSTRUCTIONS MEDICATIONS ADMINISTERED No Known Medications MEDICAL (GENERAL) HISTORY
--- OUTSIDE RECORDS SUMMARY | 2019-03-05 10:51 | XMS REPORT ---
Author Author PAGEMARSTORRES Organization [facility] Address [address] [place] [address] Care Team Providers Care Vehicle Fare Collector Name Role Phone ABELTORRES Hollis Unavailable PROBLEMS Type Condition ICD9-CM Code [id number] Code Onset Dates Condition Status SNOMED Code Problem Type 2 diabetes mellitus with diabetic peripheral angiopathy without gangrene, without long-term current use of insulin E11.51 Active 005064084 Problem Controlled restless leg syndrome G25.81 Active 47949090 Problem Benign essential HTN I10 Active 3472759 Problem OAB (overactive bladder) N32.81 Active 835665935 Problem Body mass index (BMI) of 40.0-44.9 in adult Z68.41 Active 439815515 Problem GERD (gastroesophageal reflux disease) K21.9 Active 770751845 Problem Degenerative arthritis of knee M17.9 Active 924188580 Problem Morbid (severe) obesity due to excess calories E66.01 Active 132557716 Problem Mild single current episode of major depressive disorder F32.0 Active 38115813 ALLERGIES No Information ENCOUNTERS Encounter Location Date Diagnosis [facility] [address] [address] May, [facility] [id number] [place] [address] Mar, Degenerative arthritis of knee M17.9 [facility] [id number] [place] [address] Mar, Type 2 diabetes mellitus with diabetic peripheral angiopathy without gangrene, without long-term current use of insulin E11.51 ; Benign essential HTN I10 ; Degenerative arthritis of knee M17.9 and Mild single current episode of major depressive disorder F32.0 [facility] [id number] [place] [address] Feb, [place] [address] [address] Feb, Degenerative arthritis of knee M17.9 [place] [id number] [place] [address] Feb, [place] [id number] [place] [address] Jan, Degenerative arthritis of knee M17.9 [place] [id number] [place] [address] Jan, Herpes zoster without complication B02.9 and BMI 40.0-44.9, adult Z68.41 [place] [id number] [place] [address] December, Degenerative arthritis of knee M17.9 [place] [id number] [place] [address] Nov, Benign essential HTN I10 ; Type [...] Z68.41 and GERD (gastroesophageal reflux disease) K21.9 [place] [address] [address] Nov, [place] [id number] [place] [address] Oct, Degenerative arthritis of knee M17.9 [place] [id number] [place] [address] Oct, [place] [id number] [address] Oct, Type 2 diabetes mellitus with diabetic peripheral angiopathy without gangrene, without long-term current use of insulin E11.51 and Controlled substance agreement signed Z79.899 [place] [id number] [place] [address] Oct, Degenerative arthritis of knee M17.9 [place] [id number] [place] [address] Sep, Type 2 diabetes mellitus with diabetic peripheral angiopathy without gangrene, without long-term current use of insulin E11.51 ; Benign essential HTN I10 ; BMI 40.0-44.9, adult Z68.41 ; Mild single current episode of major depressive disorder F32.0 ; OAB (overactive bladder) N32.81 ; Degenerative arthritis of knee M17.9 and GERD (gastroesophageal reflux disease) K21.9 [place] [address] [address] Aug, Joint pain and swelling due to Lyme disease A69.20 [place] [address] [address] Jun, [address] [address] May, 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 ; Benign essential HTN I10 ; 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 ; Body mass index (BMI) of 40.0-44.9 in adult Z68.41 and Morbid (severe) obesity due to excess calories E66.01 [place] [id number] [place] [address] May, Encounter for immunization Z23 [address] [address] May, 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 [place] [id number] [place] [address] Mar, Mild single current episode of major depressive disorder F32.0 [place] [id number] [place] [address] Mar, Joint pain and swelling due to Lyme disease A69.20 [place] [id number] [place] [address] Feb, Izzy infection B37.9 [place] [id number] [place] [address] Jan, Insect bite (nonvenomous) of abdominal wall, initial encounter S30.861A and Joint pain and swelling due to Lyme disease A69.20 [place] [id number] [place] [address] Jan, [address] [address] 16 Sep, 2016 Mild single current episode of major depressive disorder F32.0 and 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 [place] [id number] [place] [address] Sep, Controlled restless leg syndrome G25.81 and Cramp of both lower extremities R25.2 [place] [id number] [place] [address] Aug, 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 ; Controlled restless leg syndrome G25.81 ; SI (stress incontinence), female N39.3 ; Benign essential HTN I10 ; 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 ; GERD (gastroesophageal reflux disease) K21.9 ; Screening cholesterol level Z13.220 and Mild single current episode of major depressive disorder F32.0 [place] [id number] [place] [address] Aug, [place] [id number] [place] [address] May, [place] [id number] [place] [address] May, Encounter for immunization Z23 [facility] [address] [address] Apr, [facility] [id number] [place] [address] Apr, [place] [id number] [place] [address] Apr, SAMANTHA (secretory otitis media), right H65.91 ; 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 ; Controlled restless leg syndrome G25.81 ; Edema extremities R60.0 ; SI (stress incontinence), female N39.3 ; Benign essential HTN I10 ; Degenerative arthritis of knee M17.9 and Major depressive disorder with single episode, remission status unspecified F32.9 [place] [id number] [place] [address] Apr, OME (otitis media with effusion), right H65.91 [place] [id number] [place] [address] Mar, [place] [id number] [place] [address] Mar, 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 ; Controlled restless leg syndrome G25.81 ; SI (stress incontinence), female N39.3 ; Benign essential HTN I10 ; GERD (gastroesophageal reflux disease) K21.9 ; Knee pain M25.569 and Major depressive disorder with single episode, remission status unspecified F32.9 [place] [address] [address] Mar, [place] [id number] [place] [address] Mar, [place] [id number] [place] [address] Jan, Pre-op exam Z01.818 [place] [id number] [place] [address] Oct, Urinary tract infection N39.0 ; Benign essential HTN I10 ; Controlled restless leg syndrome G25.81 ; Edema extremities R60.0 ; Degenerative arthritis of knee M17.9 and GERD (gastroesophageal reflux disease) K21.9 [place] [address] [address] Oct, Izzy albicans infection B37.9 [place] [id number] [place] [address] Sep, [place] [id number] [place] [address] Sep, UTI (urinary tract infection) N39.0 ; Benign essential HTN I10 ; 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 ; Controlled restless leg syndrome G25.81 ; Edema extremities R60.0 ; SI (stress incontinence), female N39.3 and 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 [place] [address] [address] Sep, UTI (urinary tract infection) N39.0 [place] [address] [place] [address] Aug, Pre-op evaluation Z01.818 [place] [address] [address] Aug, [place] [id number] [place] [address] Aug, [place] [address] [place] [address] Jul, Right hip pain M25.551 ; 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 and Knee pain M25.569 [place] [address] [address] Jul, [place] [id number] [place] [address] Jun, Knee pain M25.569 ; 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 and Degenerative arthritis of knee M17.9 [place] [id number] [place] [address] Jun, [place] [id number] [place] [address] Apr, Diabetes mellitus 250.00 ; Influenza vaccine administered V04.81 ; Incontinence 788.30 ; Restless legs syndrome 333.94 ; Sciatica 724.3 ; Essential hypertension, benign 401.1 ; Edema 782.3 and Depression (emotion) 311 [place] [address] [address] Mar, Pain in joint, lower leg 719.46 and Sciatica 724.3 [place] [address] [address] Mar, [place] [id number] [place] [address] Feb, Pain in joint, site unspecified 719.40 ; Other urinary incontinence 788.39 ; Pain in joint, lower leg 719.46 ; Edema 782.3 ; Sciatica 724.3 ; Essential hypertension, benign 401.1 ; Depression 311 ; Diabetes mellitus 250.00 ; Incontinence 788.30 and Restless legs syndrome 333.94 [place] [id number] [place] [address] Feb, [place] [id number] [place] [address] Nov, [place] [address] [address] Nov, [place] [id number] [place] [address] Oct, [place] [address] [address] Oct, [facility] [place] [facility] [address] [id number] [place] [address] Aug, [facility] [place] [facility] [address] [id number] [place] [address] Aug, [facility] [place] [facility] [address] [id number] [place] [address] Aug, [facility] [place] [facility] [address] [id number] [place] [address] Aug, [facility] [place] [facility] [address] [id number] [place] [address] Aug, [facility] [place] [facility] [address] [id number] [place] [address] Aug, [facility] [place] [facility] [address] [id number] [place] [address] Jun, [facility] [place] [facility] [address] [id number] [address] Jun, [facility] [place] [facility] [address] [id number] [address] Jun, [facility] [place] [facility] [address] [id number] [place] [address] Jun, [facility] [place] [facility] [address] [id number] [address] Jun, [facility] [place] [facility] [address] [id number] [address] Jun, [facility] [place] [facility] [address] [id number] [place] [address] May, [facility] [place] [facility] [address] [id number] [place] [address] May, [facility] [place] [facility] [address] [id number] [address] May, [facility] [place] [facility] [address] [id number] [place] [address] May, [facility] [place] [facility] [address] [id number] [place] [address] Apr, [facility] [place] [facility] [address] [id number] [place] [address] Apr, [facility] [place] [facility] [address] [id number] [place] [address] Apr, [facility] [place] [facility] [address] [id number] [place] [address] Apr, [facility] [place] [facility] [address] [id number] [place] [address] Mar, [facility] [place] [facility] [address] [id number] [place] [address] Mar, [facility] [place] [facility] [address] [id number] [place] [address] Mar, [facility] [place] [facility] [address] [id number] [place] [address] Mar, [facility] [place] [facility] [address] [id number] [place] [address] Mar, [facility] [place] [facility] [address] [id number] [place] [address] Mar, [facility] [place] [facility] [address] [id number] [place] [address] Feb, [facility] [place] [facility] [address] [id number] [place] [address] Feb, [facility] [place] [facility] [address] [id number] [place] [address] Jan, [facility] [place] [facility] [address] [id number] [place] [address] Jan, [facility] [place] [facility] [address] [id number] [place] [address] Jan, [facility] [place] [facility] [address] [id number] [place] [address] Jan, [facility] [place] [facility] [address] [id number] [place] [address] December, [facility] [place] [facility] [address] [id number] [place] [address] December, [facility] [place] [facility] [address] [id number] [place] [address] December, [facility] [place] [facility] [address] [id number] [place] [address] December, [facility] [place] [facility] [address] [id number] [place] [address] December, [facility] [place] [facility] [address] [id number] [place] [address] December, [facility] [place] [facility] [address] [id number] [place] [address] December, [facility] [place] [facility] [address] [id number] [place] [address] December, [facility] [place] [facility] [address] [id number] [place] [address] Nov, [facility] [place] [facility] [address] [id number] [place] [address] Nov, [facility] [place] [facility] [address] [id number] [place] [address] Nov, [facility] [place] [facility] [address] [id number] [place] [address] Nov, [facility] [place] [facility] [address] [id number] [place] [address] Oct, [facility] [place] [facility] [address] [id number] [place] [address] Oct, [facility] [place] [facility] [address] [id number] [place] [address] Oct, [facility] [place] [facility] [address] [id number] [place] [address] Oct, [facility] [place] [facility] [address] [id number] [place] [address] Oct, [facility] [place] [facility] [address] [id number] [place] [address] Oct, [facility] [place] [facility] [address] [id number] [place] [address] Oct, [facility] [place] [facility] [address] [id number] [place] [address] Oct, [facility] [place] [facility] [address] [id number] [place] [address] Sep, [facility] [place] [facility] [address] [id number] [place] [address] Sep, [facility] [place] [facility] [address] [id number] [place] [address] Sep, [facility] [place] [facility] [address] [id number] [place] [address] Sep, [facility] [place] [facility] [address] [facility] [id number] [place] [address] Sep, [facility] [place] [facility] [address] [facility] [id number] [place] [address] Aug, [facility] [place] [facility] [address] [id number] [place] [address] Aug, [facility] [place] [facility] [address] [id number] [place] [address] Jul, [facility] [place] [facility] [address] [id number] [place] [address] Jul, [facility] [place] [facility] [address] [id number] [place] [address] Jul, [facility] [place] [facility] [address] [id number] [place] [address] Jul, [facility] [address] [id number] [place] [address] Jul, [facility] [place] [facility] [address] [id number] [place] [address] Jul, [facility] [address] [id number] [place] [address] Jul, [facility] [address] [id number] [place] [address] Jun, [facility] [place] [facility] [address] [id number] [place] [address] Jun, [facility] [address] [id number] [place] [address] Jun, [facility] [address] [id number] [place] [address] Jun, [facility] [address] [id number] [place] [address] Jun, [facility] [address] [id number] [place] [address] Jun, [facility] [place] [facility] [address] [id number] [place] [address] Jun, [facility] [place] [facility] [address] [id number] [place] [address] Jun, [facility] [place] [facility] [address] [id number] [place] [address] Jun, [facility] [place] [facility] [address] [id number] [place] [address] Jun, [facility] [place] [facility] [address] [id number] [place] [address] 18 Jun, 2013 [facility] [place] [facility] [address] [id number] [place] [address] Jun, [facility] [place] [facility] [address] [id number] [place] [address] Jun, [facility] [place] [facility] [address] [id number] [place] [address] May, [facility] [place] [facility] [address] [id number] [place] [address] May, [facility] [place] [facility] [address] [id number] [place] [address] May, [facility] [place] [facility] [address] [id number] [place] [address] May, [facility] [place] [facility] [address] [id number] [place] [address] May, [facility] [place] [facility] [address] [id number] [place] [address] May, [facility] [place] [facility] [address] [id number] [place] [address] May, [facility] [place] [facility] [address] [id number] [place] [address] May, [facility] [place] [facility] [address] [id number] [place] [address] May, [facility] [place] [facility] [address] [id number] [address] 23 Apr, 2013 [facility] [place] [facility] [address] [id number] [address] 21 Apr, 2013 [facility] [place] [facility] [address] [id number] [place] [address] 11 Apr, 2013 [facility] [place] [facility] [address] [id number] [place] [address] 09 Apr, 2013 [facility] [place] [facility] [address] [id number] [place] [address] 15 Mar, 2013 [facility] [place] [facility] [address] [id number] [place] [address] 14 Mar, 2013 [facility] [address] [id number] [place] [address] Mar, [facility] [address] [id number] [place] [address] Jan, [facility] [address] [id number] [place] [address] Jan, [facility] [address] [id number] [place] [address] Jan, [facility] [address] [id number] [place] [address] Jan, [facility] [address] [id number] [place] [address] December, [facility] [address] [id number] [place] [address] Nov, [facility] [address] [id number] [place] [address] Nov, [facility] [address] [id number] [place] [address] Sep, [facility] [address] [id number] [place] [address] Sep, [facility] [address] [id number] [place] [address] Sep, [facility] [address] [id number] [place] [address] Aug, [facility] [place] [facility] [address] [id number] [place] [id number] Aug, [facility] [place] [facility] [address] [id number] [place] [address] Aug, [facility] [place] [facility] [address] [id number] [place] [address] Aug, [facility] [place] [facility] [address] [id number] [place] [address] Aug, [facility] [place] [facility] [address] [id number] [place] [address] Aug, [facility] [place] [facility] [address] [id number] [place] [address] Aug, [facility] [place] [facility] [address] [id number] [place] [address] Jul, [facility] [place] [facility] [address] [id number] [place] [address] Jul, [facility] [place] [facility] [address] [id number] [place] [address] Jun, [facility] [place] [facility] [address] [id number] [place] [address] Jun, [facility] [place] [facility] [address] [id number] [place] [address] May, [facility] [place] [facility] [address] [id number] [place] [address] May, [facility] [place] [facility] [address] [id number] [place] [address] May, [facility] [place] [facility] [address] [id number] [address] May, [facility] [place] [facility] [address] [id number] [address] 26 Apr, 2012 [facility] [place] [facility] [address] [id number] [place] [id number] 24 Apr, 2012 [facility] [place] [facility] [address] [id number] [place] [address] 21 Apr, 2012 [facility] [place] [facility] [address] [id number] [place] [address] 20 Apr, 2012 [facility] [place] [facility] [address] [id number] [place] [address] 20 Apr, 2012 [facility] [address] [id number] [place] [address] 19 Apr, 2012 [facility] [place] [facility] [address] [id number] [place] [address] Apr, [facility] [place] [facility] [address] [id number] [place] [address] Mar, [facility] [place] [facility] [address] [id number] [place] [address] December, [facility] [place] [facility] [address] [id number] [place] [address] December, [facility] [place] [facility] [address] [id number] [place] [address] December, [facility] [address] [id number] [place] [address] Sep, [facility] [place] [facility] [address] [id number] [place] [address] Sep, [facility] [place] [facility] [address] [id number] [place] [address] Aug, [facility] [place] [facility] [address] [id number] [place] [address] Aug, [facility] [place] [facility] [address] [id number] [place] [address] Aug, [facility] [place] [facility] [address] [id number] [place] [id number] Jun, [facility] [place] [facility] [address] [id number] [place] [id number] Jun, [facility] [place] [facility] [address] [id number] [place] [id number] Jun, [facility] [place] [facility] [address] [id number] [place] [id number] Jun, [facility] [address] [id number] [place] [address] Mar, [facility] [address] [id number] [address] Jan, [facility] [address] [id number] [place] [address] December, IMMUNIZATIONS No Known Immunizations SOCIAL HISTORY Never Assessed REASON FOR VISIT Oxycodone 04/15 PLAN OF CARE VITAL SIGNS MEDICATIONS Medication Instructions Dosage Frequency Start Date End Date Duration Status Oxycodone-Acetaminophen 5-325 MG Orally 2 times a day 1 tablet as needed 12h Mar, 28 days Active RESULTS No Results PROCEDURES [...]
--- OUTSIDE RECORDS SUMMARY | 2019-03-05 10:51 | XMS REPORT ---
Author Author TORRES Felix Organization [facility] Address [address] [place] [address] Care Team Providers Care Sap Bpc Architect Name Role Phone TORRES Felix Unavailable PROBLEMS Type Condition ICD9-CM Code SAR77-YB Code Onset Dates Condition Status SNOMED Code Problem Type 2 diabetes mellitus with diabetic peripheral angiopathy without gangrene, without long-term current use of insulin E11.51 Active 525884564 Problem Controlled restless leg syndrome G25.81 Active 81759039 Problem Benign essential HTN I10 Active 1262374 Problem OAB (overactive bladder) N32.81 Active 614037464 Problem Body mass index (BMI) of 40.0-44.9 in adult Z68.41 Active 924058551 Problem GERD (gastroesophageal reflux disease) K21.9 Active 354112807 Problem Degenerative arthritis of knee M17.9 Active 503889533 Problem Morbid (severe) obesity due to excess calories E66.01 Active 194621165 Problem Mild single current episode of major depressive disorder F32.0 Active 52823817 ALLERGIES No Information ENCOUNTERS Encounter Location Date Diagnosis [facility] [id number], [place] [address] May, [facility] [id number] [place] [address] Apr, [facility] [address], [place] [address] Apr, Degenerative arthritis of knee M17.9 [facility] [id number] [place] [address] Mar, Degenerative arthritis of knee M17.9 [facility] [id number], [place] [address] Mar, Type 2 diabetes mellitus with diabetic peripheral angiopathy without gangrene, without long-term current use of insulin E11.51 ; Benign essential HTN I10 ; Degenerative arthritis of knee M17.9 and Mild single current episode of major depressive disorder F32.0 [address], [place] [address] Feb, [facility] [id number] [place] [address] Feb, Degenerative arthritis of knee M17.9 [facility] [id number] [place] [address] Feb, [place] [id number] [place] [address] Jan, Degenerative arthritis of knee M17.9 [place] [id number] [place] [address] Jan, Herpes zoster without complication B02.9 and BMI 40.0-44.9, adult Z68.41 [place] [id number] [place] [address] December, Degenerative arthritis of knee M17.9 [place] [id number] [place] [address] Nov, Benign essential HTN I10 ; Type [...] Z68.41 and GERD (gastroesophageal reflux disease) K21.9 [facility] [address] [address] Nov, [place] [id number] [place] [address] Oct, Degenerative arthritis of knee M17.9 [place] [id number] [place] [address] Oct, [facility] [facility] [id number] [place] [address] Oct, Type 2 diabetes mellitus with diabetic peripheral angiopathy without gangrene, without long-term current use of insulin E11.51 and Controlled substance agreement signed Z79.899 [place] [id number] [place] [address] Oct, Degenerative arthritis of knee M17.9 [place] [id number] [place] [address] Sep, Type 2 diabetes mellitus with diabetic peripheral angiopathy without gangrene, without long-term current use of insulin E11.51 ; Benign essential HTN I10 ; BMI 40.0-44.9, adult Z68.41 ; Mild single current episode of major depressive disorder F32.0 ; OAB (overactive bladder) N32.81 ; Degenerative arthritis of knee M17.9 and GERD (gastroesophageal reflux disease) K21.9 [place] [id number] [place] [address] Aug, Joint pain and swelling due to Lyme disease A69.20 [place] [id number] [place] [address] Jun, [place] [id number] [place] [address] May, 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 ; Benign essential HTN I10 ; 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 ; Body mass index (BMI) of 40.0-44.9 in adult Z68.41 and Morbid (severe) obesity due to excess calories E66.01 [place] [id number] [place] [address] May, Encounter for immunization Z23 [address] [address] May, 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 [place] [id number] [place] [address] Mar, Mild single current episode of major depressive disorder F32.0 [place] [id number] [place] [address] Mar, Joint pain and swelling due to Lyme disease A69.20 [place] [id number] [place] [address] Feb, Izzy infection B37.[address] [address] Jan, Insect bite (nonvenomous) of abdominal wall, initial encounter S30.861A and Joint pain and swelling due to Lyme disease A69.20 [id number] [place] [address] Jan, [id number] [place] [address] Sep, Mild single current episode of major depressive disorder F32.0 and 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 [place] [id number] [place] [address] Sep, Controlled restless leg syndrome G25.81 and Cramp of both lower extremities R25.2 [place] [id number] [place] [address] Aug, 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 ; Controlled restless leg syndrome G25.81 ; SI (stress incontinence), female N39.3 ; Benign essential HTN I10 ; 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 ; GERD (gastroesophageal reflux disease) K21.9 ; Screening cholesterol level Z13.220 and Mild single current episode of major depressive disorder F32.0 [place] [id number] [place] [address] Aug, [facility] [address], [place] [address] May, [place] [id number] [place] [address] May, Encounter for immunization Z23 [facility] [id number] [address] Apr, [place] [id number] [place] [address] Apr, [place] [id number] [place] [address] Apr, SAMANTHA (secretory otitis media), right H65.91 ; 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 ; Controlled restless leg syndrome G25.81 ; Edema extremities R60.0 ; SI (stress incontinence), female N39.3 ; Benign essential HTN I10 ; Degenerative arthritis of knee M17.9 and Major depressive disorder with single episode, remission status unspecified F32.9 [address] [id number] [place] [address] Apr, OME (otitis media with effusion), right H65.91 [id number] [place] [address] Mar, [place] [id number] [place] [address] Mar, 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 ; Controlled restless leg syndrome G25.81 ; SI (stress incontinence), female N39.3 ; Benign essential HTN I10 ; GERD (gastroesophageal reflux disease) K21.9 ; Knee pain M25.569 and Major depressive disorder with single episode, remission status unspecified F32.9 [place] [place], [place] [address] Mar, [place] [id number] [place] [address] Mar, [facility] [address], [place] [address] Jan, Pre-op exam Z01.818 [address], [place] [address] Oct, Urinary tract infection N39.0 ; Benign essential HTN I10 ; Controlled restless leg syndrome G25.81 ; Edema extremities R60.0 ; Degenerative arthritis of knee M17.9 and GERD (gastroesophageal reflux disease) K21.9 [address], [place] [address] Oct, Izzy albicans infection B37.9 [address], [place] [address] Sep, [place], [place] [address] Sep, UTI (urinary tract infection) N39.0 ; Benign essential HTN I10 ; 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 ; Controlled restless leg syndrome G25.81 ; Edema extremities R60.0 ; SI (stress incontinence), female N39.3 and 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 [address], [place] [address] Sep, UTI (urinary tract infection) N39.0 [place] [id number] [address] Aug, Pre-op evaluation Z01.818 [address], [place] [address] Aug, [address] [address], [place] [address] Aug, [place] [id number] [address] 14 Jul, 2015 Right hip pain M25.551 ; 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 and Knee pain M25.569 [address] [place] [place] [address] Jul, [place] [id number] [place] [address] Jun, Knee pain M25.569 ; 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 and Degenerative arthritis of knee M17.9 [address] [id number] [place] [address] Jun, [place] [id number] [place] [address] Apr, Diabetes mellitus 250.00 ; Influenza vaccine administered V04.81 ; Incontinence 788.30 ; Restless legs syndrome 333.94 ; Sciatica 724.3 ; Essential hypertension, benign 401.1 ; Edema 782.3 and Depression (emotion) 311 [address] [place] [id number] [place] [address] Mar, Pain in joint, lower leg 719.46 and Sciatica 724.3 [place] [id number] [place] [address] Mar, [address] [place] [place] [address] Feb, Pain in joint, site unspecified 719.40 ; Other urinary incontinence 788.39 ; Pain in joint, lower leg 719.46 ; Edema 782.3 ; Sciatica 724.3 ; Essential hypertension, benign 401.1 ; Depression 311 ; Diabetes mellitus 250.00 ; Incontinence 788.30 and Restless legs syndrome 333.94 [address] [place] [address] Feb, [address] [id number] [place] [address] Nov, [place] [id number] [address] 13 Nov, 2014 [facility] [address] [id number] [place] [address] Oct, [facility] [place] [facility] [address] [id number] [place] [address] 18 Oct, 2014 [facility] [address] [id number] [place] [address] Aug, [facility] [place] [facility] [address] [id number] [place] [address] Aug, [facility] [address] [id number] [place] [address] Aug, [facility] [address] [id number] [place] [address] Aug, [facility] [address] [id number] [place] [address] Aug, [facility] [address] [id number] [place] [address] Aug, [facility] [address] [id number] [place] [address] Jun, [facility] [address] [id number] [place] [address] Jun, [facility] [place] [facility] [address] [id number] [place] [address] Jun, [facility] [place] [facility] [address] [id number] [place] [address] Jun, [facility] [place] [facility] [address] [id number] [place] [address] Jun, [facility] [place] [facility] [address] [id number] [place] [address] Jun, [facility] [place] [facility] [address] [id number] [place] [address] May, [facility] [place] [facility] [address] [id number] [place] [address] May, [facility] [place] [facility] [address] [id number] [place] [address] May, [facility] [place] [facility] [address] [id number] [place] [address] May, [facility] [place] [facility] [address] [id number] [place] [address] Apr, [facility] [place] [facility] [address] [id number] [place] [address] Apr, [facility] [place] [facility] [address] [id number] [place] [address] Apr, [facility] [place] [facility] [address] [id number] [place] [address] Apr, [facility] [place] [facility] [address] [id number] [place] [address] Mar, [facility] [place] [facility] [address] [id number] [place] [address] Mar, [facility] [place] [facility] [address] [id number] [place] [address] Mar, [facility] [place] [facility] [address] [id number] [place] [address] Mar, [facility] [place] [facility] [address] [id number] [address] Mar, [facility] [place] [facility] [address] [id number] [place] [address] Mar, [facility] [place] [facility] [address] [id number] [place] [address] Feb, [facility] [place] [facility] [address] [id number] [place] [address] Feb, [facility] [place] [facility] [address] [id number] [place] [address] Jan, [facility] [place] [facility] [address] [id number] [place] [address] Jan, [facility] [place] [facility] [address] [id number] [place] [address] Jan, [facility] [place] [facility] [address] [id number] [place] [address] Jan, [facility] [place] [facility] [address] [id number] [place] [address] December, [facility] [place] [facility] [address] [id number] [place] [address] December, [facility] [place] [facility] [address] [id number] [place] [address] December, [facility] [place] [facility] [address] [id number] [place] [address] December, [facility] [place] [facility] [address] [id number] [place] [address] December, [facility] [place] [facility] [address] [id number] [place] [address] December, [facility] [place] [facility] [address] [id number] [place] [address] December, [facility] [place] [facility] [address] [id number] [place] [address] December, [facility] [place] [facility] [address] [id number] [place] [address] Nov, [facility] [place] [facility] [address] [id number] [place] [address] Nov, [facility] [place] [facility] [address] [id number] [place] [address] Nov, [facility] [place] [facility] [address] [id number] [place] [address] Nov, [facility] [place] [facility] [address] [id number] [place] [address] Oct, [facility] [place] [facility] [address] [id number] [place] [address] Oct, [facility] [place] [facility] [address] [id number] [place] [address] Oct, [facility] [place] [facility] [address] [id number] [place] [address] Oct, [facility] [place] [facility] [address] [id number] [place] [address] Oct, [facility] [place] [facility] [address] [id number] [place] [address] Oct, [facility] [place] [facility] [address] [id number] [place] [address] Oct, [facility] [place] [facility] [address] [id number] [place] [address] Oct, [facility] [place] [facility] [address] [id number] [place] [address] Sep, [facility] [place] [facility] [address] [id number] [place] [address] Sep, [facility] [place] [facility] [address] [id number] [place] [address] Sep, [facility] [place] [facility] [address] [id number] [place] [address] Sep, [facility] [place] [facility] [address] [id number] [place] [address] Sep, [facility] [place] [facility] [address] [id number] [place] [address] Aug, [facility] [place] [facility] [address] [id number] [place] [address] Aug, [facility] [place] [facility] [address] [id number] [place] [address] Jul, [facility] [place] [facility] [address] [id number] [place] [address] Jul, [facility] [place] [facility] [address] [id number] [place] [address] Jul, [facility] [place] [facility] [address] [id number] [place] [address] Jul, [facility] [place] [facility] [address] [id number] [place] [address] Jul, [facility] [place] [facility] [address] [id number] [place] [address] Jul, [facility] [place] [facility] [address] [id number] [place] [address] Jul, [facility] [place] [facility] [address] [id number] [place] [address] Jun, [facility] [place] [facility] [address] [id number] [place] [address] Jun, [facility] [place] [facility] [address] [id number] [place] [address] Jun, [facility] [place] [facility] [address] [id number] [place] [address] Jun, [facility] [place] [facility] [address] [id number], [place] [address] Jun, [facility] [place] [facility] [address] [id number], [place] [address] Jun, [facility] [place] [facility] [address] [id number] [place] [address] Jun, [facility] [place] [facility] [address] [id number] [place] [address] Jun, [facility] [place] [facility] [address] [id number] [place] [address] Jun, [facility] [place] [facility] [address] [id number] [place] [address] Jun, [facility] [place] [facility] [address] [id number] [place] [address] Jun, [facility] [place] [facility] [address] [id number] [place] [address] Jun, [facility] [place] [facility] [address] [id number] [place] [address] Jun, [facility] [place] [facility] [address] [id number] [place] [address] May, [facility] [place] [facility] [address] [id number] [place] [address] May, [facility] [place] [facility] [address] [id number] [place] [address] May, [facility] [place] [facility] [address] [id number] [place] [address] May, [facility] [place] [facility] [address] [id number] [place] [address] May, [facility] [place] [facility] [address] [id number] [place] [address] May, [facility] [place] [facility] [address] [id number] [place] [address] May, [facility] [place] [facility] [address] [id number] [place] [address] 10 May, 2013 [facility] [place] [facility] [address] [id number] [place] [address] 09 May, 2013 [facility] [place] [facility] [address] [id number] [place] [address] 23 Apr, 2013 [facility] [place] [facility] [address] [id number] [place] [address] 21 Apr, 2013 [facility] [place] [facility] [address] [id number] [place] [address] Apr, [facility] [address] [id number] [place] [address] 09 Apr, 2013 [facility] [place] [facility] [address] [id number] [place] [address] Mar, [facility] [place] [facility] [address] [id number] [place] [address] Mar, [facility] [place] [facility] [address] [id number] [place] [address] Mar, [facility] [address] [id number] [place] [address] Jan, [facility] [place] [facility] [address] [id number] [place] [address] Jan, [facility] [place] [facility] [address] [id number] [place] [address] Jan, [facility] [place] [facility] [address] [id number] [place] [address] Jan, [facility] [place] [facility] [address] [id number] [place] [address] December, [facility] [place] [facility] [address] [id number] [place] [address] Nov, [facility] [place] [facility] [address] [id number] [place] [address] Nov, [facility] [place] [facility] [address] [id number], [place] [address] Sep, [facility] [place] [facility] [address] [id number] [place] [address] Sep, [facility] [place] [facility] [address] [id number] [place] [address] Sep, [facility] [place] [facility] [address] [id number] [place] [address] Aug, [facility] [place] [facility] [address] [id number] [place] [address] 18 Aug, 2012 [facility] [address] [id number] [place] [address] 17 Aug, 2012 [facility] [place] [facility] [address] [id number] [place] [address] 16 Aug, 2012 [facility] [place] [facility] [address] [id number] [place] [address] 16 Aug, 2012 [facility] [place] [facility] [address] [id number] [place] [address] 15 Aug, 2012 [facility] [place] [facility] [address] [id number] [place] [address] Aug, [facility] [place] [facility] [address] [id number] [place] [address] Jul, [facility] [address] [id number] [place] [address] Jul, [facility] [place] [facility] [address] [id number] [place] [address] Jun, [facility] [place] [facility] [address] [id number] [place] [address] Jun, [facility] [place] [facility] [address] [id number] [place] [address] May, [facility] [place] [facility] [address] [id number] [place] [address] May, [facility] [place] [facility] [address] [id number] [place] [address] May, [facility] [place] [facility] [address] [id number] [place] [address] May, [facility] [place] [facility] [address] [id number] [place] [address] Apr, [facility] [place] [facility] [address] [id number] [place] [address] 24 Apr, 2012 [facility] [place] [facility] [address] [id number] [place] [address] 21 Apr, 2012 [facility] [place] [facility] [address] [id number] [place] [address] 20 Apr, 2012 [facility] [place] [facility] [address] [id number] [place] [address] 20 Apr, 2012 [facility] [place] [facility] [address] [id number] [place] [address] 19 Apr, 2012 [facility] [address] [id number] [place] [address] Apr, [facility] [place] [facility] [address] [id number] [place] [address] Mar, [facility] [address] [id number] [place] [address] December, [facility] [place] [facility] [address] [id number] [place] [address] December, [facility] [place] [facility] [address] [id number] [place] [address] December, [facility] [place] [facility] [address] [id number] [place] [address] Sep, [facility] [place] [facility] [address] [id number] [place] [address] Sep, [facility] [place] [facility] [address] [id number] [place] [address] Aug, [facility] [place] [facility] [address] [id number] [place] [address] Aug, [facility] [place] [facility] [address] [id number] [place] [address] Aug, [facility] [place] [facility] [address] [id number] [place] [address] Jun, [facility] [place] [facility] [address] [id number] [place] [address] Jun, [facility] [address] [facility] [id number], [place] [address] Jun, [facility] [address] [facility] [id number], [place] [address] Jun, [facility] [address] [facility] [id number], [place] [address] Mar, [facility] [address] [facility] [id number], [place] [address] Jan, [facility] [address] [facility] [id number], [place] [address] December, IMMUNIZATIONS No Known Immunizations SOCIAL HISTORY Never Assessed REASON FOR VISIT controlled med 05/16 PLAN OF CARE VITAL SIGNS MEDICATIONS Medication Instructions Dosage Frequency Start Date End Date Duration Status Oxycodone-Acetaminophen 5-325 MG Orally 2 times a day 1 tablet as needed 12h Apr, 28 days Active RESULTS No Results PROCEDURES [...]
--- OUTSIDE RECORDS SUMMARY | 2019-03-05 10:52 | XMS REPORT ---
Author Author ABELTORRES Hollis Organization [facility] Address [address] [place] [address] Care Team Providers Care Historic Site Administrator Name Role Phone TORRES ABEL Unavailable PROBLEMS Type Condition ICD9-CM Code RDO14-XR Code Onset Dates Condition Status SNOMED Code Problem Type 2 diabetes mellitus with diabetic peripheral angiopathy without gangrene, without long-term current use of insulin E11.51 Active 589253410 Problem Controlled restless leg syndrome G25.81 Active 41357478 Problem Benign essential HTN I10 Active 5889041 Problem OAB (overactive bladder) N32.81 Active 199439897 Problem Body mass index (BMI) of 40.0-44.9 in adult Z68.41 Active 491180478 Problem GERD (gastroesophageal reflux disease) K21.9 Active 411425358 Problem Degenerative arthritis of knee M17.9 Active 715041474 Problem Morbid (severe) obesity due to excess calories E66.01 Active 065692324 Problem Mild single current episode of major depressive disorder F32.0 Active 63808488 ALLERGIES Substance Reaction Event Type Date Status Codeine Unknown Non Drug Allergy Mar, Active ENCOUNTERS Encounter Location Date Diagnosis [place] [id number] [address] May, [facility] [id number] [address] Mar, Degenerative arthritis of knee M17.9 [facility] [id number] [address] Mar, Type 2 diabetes mellitus with diabetic peripheral angiopathy without gangrene, without long-term current use of insulin E11.51 ; Benign essential HTN I10 ; Degenerative arthritis of knee M17.9 and Mild single current episode of major depressive disorder F32.0 [facility] [address] [address] Feb, [facility] [id number] [place] [address] Feb, Degenerative arthritis of knee M17.9 [facility] [address] [place] [address] Feb, [place] [id number] [place] [address] Jan, Degenerative arthritis of knee M17.9 [place] [id number] [place] [address] Jan, Herpes zoster without complication B02.9 and BMI 40.0-44.9, adult Z68.41 [place] [id number] [place] [address] December, Degenerative arthritis of knee M17.9 [facility] [facility] [id number] [place] [address] Nov, Benign essential HTN I10 ; Type [...] Z68.41 and GERD (gastroesophageal reflux disease) K21.9 [facility] [address], [place] [address] Nov, [facility] [id number] [place] [address] Oct, Degenerative arthritis of knee M17.9 [facility] [address], [place] [address] Oct, [facility] [id number] [place] [address] Oct, Type 2 diabetes mellitus with diabetic peripheral angiopathy without gangrene, without long-term current use of insulin E11.51 and Controlled substance agreement signed Z79.899 [address] [id number] [place] [address] Oct, Degenerative arthritis of knee M17.9 [address] [id number] [place] [address] Sep, Type 2 diabetes mellitus with diabetic peripheral angiopathy without gangrene, without long-term current use of insulin E11.51 ; Benign essential HTN I10 ; BMI 40.0-44.9, adult Z68.41 ; Mild single current episode of major depressive disorder F32.0 ; OAB (overactive bladder) N32.81 ; Degenerative arthritis of knee M17.9 and GERD (gastroesophageal reflux disease) K21.9 [place] [id number] [place] [address] Aug, Joint pain and swelling due to Lyme disease A69.20 [address] [id number] [place] [address] Jun, [address] [address] May, 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 ; Benign essential HTN I10 ; 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 ; Body mass index (BMI) of 40.0-44.9 in adult Z68.41 and Morbid (severe) obesity due to excess calories E66.01 [place] [id number] [place] [address] May, Encounter for immunization Z23 [address] [address] May, 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 [address] [id number] [place] [address] Mar, Mild single current episode of major depressive disorder F32.0 [place] [id number] [place] [address] Mar, Joint pain and swelling due to Lyme disease A69.20 [place] [id number] [place] [address] Feb, Izzy infection B37.9 [place] [address] [address] Jan, Insect bite (nonvenomous) of abdominal wall, initial encounter S30.861A and Joint pain and swelling due to Lyme disease A69.20 [place] [id number] [place] [address] Jan, [place] [id number] [place] [address] Sep, Mild single current episode of major depressive disorder F32.0 and 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 [place] [id number] [place] [address] Sep, Controlled restless leg syndrome G25.81 and Cramp of both lower extremities R25.2 [place] [address] [place] [address] Aug, 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 ; Controlled restless leg syndrome G25.81 ; SI (stress incontinence), female N39.3 ; Benign essential HTN I10 ; 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 ; GERD (gastroesophageal reflux disease) K21.9 ; Screening cholesterol level Z13.220 and Mild single current episode of major depressive disorder F32.0 [place] [id number] [place] [address] Aug, [place] [id number] [place] [address] May, [place] [id number] [place], [place] [address] May, Encounter for immunization Z23 [facility] [id number] [place] [address] Apr, [facility] [id number] [place] [address] Apr, [place] [id number] [place] [address] Apr, SAMANTHA (secretory otitis media), right H65.91 ; 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 ; Controlled restless leg syndrome G25.81 ; Edema extremities R60.0 ; SI (stress incontinence), female N39.3 ; Benign essential HTN I10 ; Degenerative arthritis of knee M17.9 and Major depressive disorder with single episode, remission status unspecified F32.9 [place] [address] [place] [address] Apr, OME (otitis media with effusion), right H65.91 [place] [address] [place] [address] Mar, [place] [id number] [place] [address] Mar, 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 ; Controlled restless leg syndrome G25.81 ; SI (stress incontinence), female N39.3 ; Benign essential HTN I10 ; GERD (gastroesophageal reflux disease) K21.9 ; Knee pain M25.569 and Major depressive disorder with single episode, remission status unspecified F32.9 [place] [address], [place] [address] Mar, [place] [id number] [place] [address] Mar, [place] [address] [place] [address] Jan, Pre-op exam Z01.818 [place] [address], [place] [address] Oct, Urinary tract infection N39.0 ; Benign essential HTN I10 ; Controlled restless leg syndrome G25.81 ; Edema extremities R60.0 ; Degenerative arthritis of knee M17.9 and GERD (gastroesophageal reflux disease) K21.9 [place] [address], [place] [address] Oct, Izzy albicans infection B37.9 [place] [id number] [place] [address] Sep, [place] [id number] [place] [address] Sep, UTI (urinary tract infection) N39.0 ; Benign essential HTN I10 ; 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 ; Controlled restless leg syndrome G25.81 ; Edema extremities R60.0 ; SI (stress incontinence), female N39.3 and 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 [place] [address] [place] [address] Sep, UTI (urinary tract infection) N39.0 [place] [address] [place] [address] Aug, Pre-op evaluation Z01.818 [place] [address] [place] [address] Aug, [place] [id number] [place] [address] Aug, [place] [id number] [place] [address] Jul, Right hip pain M25.551 ; 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 and Knee pain M25.569 [place] [address] [place] [address] Jul, [place] [id number] [place] [address] Jun, Knee pain M25.569 ; 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 and Degenerative arthritis of knee M17.9 [place] [id number] [place] [address] Jun, [place] [address] [address] Apr, Diabetes mellitus 250.00 ; Influenza vaccine administered V04.81 ; Incontinence 788.30 ; Restless legs syndrome 333.94 ; Sciatica 724.3 ; Essential hypertension, benign 401.1 ; Edema 782.3 and Depression (emotion) 311 [place] [id number] [place] [address] Mar, Pain in joint, lower leg 719.46 and Sciatica 724.3 [place] [address] [address] Mar, [place] [id number] [place] [address] Feb, Pain in joint, site unspecified 719.40 ; Other urinary incontinence 788.39 ; Pain in joint, lower leg 719.46 ; Edema 782.3 ; Sciatica 724.3 ; Essential hypertension, benign 401.1 ; Depression 311 ; Diabetes mellitus 250.00 ; Incontinence 788.30 and Restless legs syndrome 333.94 [place] [id number] [place] [address] Feb, [place] [id number] [place] [address] Nov, [place] [id number] [place] [address] Nov, [place] [id number] [place] [address] Oct, [place] [address] [facility] [id number] [place] [address] Oct, [facility] [place] [facility] [address] [id number] [place] [address] Aug, [facility] [place] [facility] [address] [id number] [place] [address] Aug, [facility] [place] [facility] [address] [id number] [place] [address] Aug, [facility] [place] [facility] [address] [id number] [place] [address] Aug, [facility] [place] [facility] [address] [id number] [place] [address] Aug, [facility] [place] [facility] [address] [id number] [place] [address] Aug, [facility] [place] [facility] [address] [id number] [place] [address] Jun, [facility] [place] [facility] [address] [id number] [place] [address] Jun, [facility] [place] [facility] [address] [id number] [place] [address] Jun, [facility] [place] [facility] [address] [id number] [place] [address] Jun, [facility] [place] [facility] [address] [id number] [place] [address] Jun, [facility] [place] [facility] [address] [id number] [place] [address] Jun, [facility] [place] [facility] [address] [id number] [place] [address] May, [facility] [place] [facility] [address] [id number] [place] [address] May, [facility] [place] [facility] [address] [id number] [place] [address] May, [facility] [place] [facility] [address] [id number] [place] [address] May, [facility] [place] [facility] [address] [id number] [place] [address] Apr, [facility] [place] [facility] [address] [id number] [place] [address] Apr, [facility] [place] [facility] [address] [id number] [place] [address] Apr, [facility] [place] [facility] [address] [id number] [place] [address] Apr, [facility] [place] [facility] [address] [id number] [place] [address] Mar, [facility] [place] [facility] [address] [id number] [place] [address] Mar, [facility] [place] [facility] [address] [id number] [place] [address] Mar, [facility] [place] [facility] [address] [id number] [place] [address] Mar, [facility] [place] [facility] [address] [id number] [place] [address] Mar, [facility] [place] [facility] [address] [id number] [place] [address] Mar, [facility] [place] [facility] [address] [id number], [place] [address] Feb, [facility] [place] [facility] [address] [id number] [place] [address] Feb, [facility] [place] [facility] [address] [id number] [place] [address] Jan, [facility] [place] [facility] [address] [id number] [place] [address] Jan, [facility] [place] [facility] [address] [id number] [place] [address] Jan, [facility] [place] [facility] [address] [id number] [place] [address] Jan, [facility] [place] [facility] [address] [id number] [place] [address] December, [facility] [place] [facility] [address] [id number] [place] [address] December, [facility] [place] [facility] [address] [id number] [place] [address] December, [facility] [place] [facility] [address] [id number] [place] [address] December, [facility] [place] [facility] [address] [id number] [place] [address] December, [facility] [place] [facility] [address] [id number] [place] [address] December, [facility] [place] [facility] [address] [id number] [place] [address] December, [facility] [place] [facility] [address] [id number] [place] [address] December, [facility] [place] [facility] [address] [id number] [place] [address] Nov, [facility] [place] [facility] [address] [id number] [place] [address] Nov, [facility] [place] [facility] [address] [id number] [place] [address] Nov, [facility] [place] [facility] [address] [id number] [place] [address] Nov, [facility] [place] [facility] [address] [id number] [place] [address] Oct, [facility] [place] [facility] [address] [id number] [place] [address] Oct, [facility] [place] [facility] [address] [id number] [place] [address] Oct, [facility] [place] [facility] [address] [id number] [place] [address] Oct, [facility] [place] [facility] [address] [id number] [place] [address] Oct, [facility] [place] [facility] [address] [id number] [place] [address] Oct, [facility] [place] [facility] [address] [id number] [place] [address] Oct, [facility] [place] [facility] [address] [id number] [place] [address] Oct, [facility] [place] [facility] [address] [id number] [place] [address] Sep, [facility] [place] [facility] [address] [id number] [place] [address] Sep, [facility] [place] [facility] [address] [id number] [place] [address] Sep, [facility] [place] [facility] [address] [facility] [id number] [place] [address] Sep, [facility] [place] [facility] [address] [facility] [id number] [place] [address] Sep, [facility] [place] [facility] [address] [id number] [place] [address] Aug, [facility] [place] [facility] [address] [id number] [place] [address] Aug, [facility] [place] [facility] [address] [id number] [place] [address] Jul, [facility] [place] [facility] [address] [id number] [place] [address] Jul, [facility] [place] [facility] [address] [id number], [place] [address] Jul, [facility] [address] [id number] [place] [address] Jul, [facility] [place] [facility] [address] [id number] [place] [address] Jul, [facility] [place] [facility] [address] [facility] [id number] [place] [address] Jul, [facility] [place] [facility] [address] [id number] [place] [address] Jul, [facility] [place] [facility] [address] [id number] [place] [address] Jun, [facility] [place] [facility] [address] [id number] [place] [address] Jun, [facility] [id number] [place] [address] Jun, [facility] [place] [facility] [address] [id number] [place] [address] Jun, [facility] [place] [facility] [address] [facility] [id number] [place] [address] Jun, [facility] [place] [facility] [address] [facility] [id number] [place] [address] Jun, [facility] [place] [facility] [address] [facility] [id number], [place] [address] Jun, [facility] [place] [facility] [address] [id number], [place] [address] Jun, [facility] [place] [facility] [address] [id number] [place] [address] Jun, [facility] [place] [facility] [address] [facility] [id number] [place] [address] Jun, [facility] [place] [facility] [address] [facility] [id number], [place] [address] 18 Jun, 2013 [facility] [place] [facility] [address] [id number] [place] [address] Jun, [facility] [place] [facility] [address] [id number] [place] [address] Jun, [facility] [place] [facility] [address] [id number] [place] [address] May, [facility] [place] [facility] [address] [id number] [place] [address] May, [facility] [place] [facility] [address] [id number] [place] [address] May, [facility] [place] [facility] [address] [id number] [place] [address] May, [facility] [place] [facility] [address] [id number] [place] [address] May, [facility] [place] [facility] [address] [id number] [place] [address] May, [facility] [place] [facility] [address] [id number] [place] [address] May, [facility] [place] [facility] [address] [id number] [place] [address] May, [facility] [place] [facility] [address] [id number] [place] [address] May, [facility] [place] [facility] [address] [id number] [place] [address] 23 Apr, 2013 [facility] [place] [facility] [address] [id number] [place] [address] 21 Apr, 2013 [facility] [place] [facility] [address] [id number] [place] [address] 11 Apr, 2013 [facility] [place] [facility] [address] [id number] [place] [address] 09 Apr, 2013 [facility] [place] [facility] [address] [id number] [place] [address] 15 Mar, 2013 [facility] [place] [facility] [address] [id number] [place] [address] Mar, [facility] [place] [facility] [address] [id number] [place] [address] Mar, [facility] [place] [facility] [address] [id number] [place] [address] Jan, [facility] [place] [facility] [address] [id number] [place] [address] Jan, [facility] [place] [facility] [address] [id number] [place] [address] Jan, [facility] [place] [facility] [address] [id number] [place] [address] Jan, [facility] [place] [facility] [address] [id number] [place] [address] December, [facility] [place] [facility] [address] [id number] [place] [address] Nov, [facility] [place] [facility] [address] [id number] [place] [address] Nov, [facility] [place] [facility] [address] [id number] [place] [address] Sep, [facility] [place] [facility] [address] [id number] [place] [address] Sep, [facility] [place] [facility] [address] [id number], [place] [address] Sep, [facility] [place] [facility] [address] [id number] [place] [address] Aug, [facility] [place] [facility] [address] [id number] [place] [address] Aug, [facility] [place] [facility] [address] [id number] [place] [address] Aug, [facility] [place] [facility] [address] [id number] [place] [address] Aug, [facility] [address] [id number] [place] [address] Aug, [facility] [address] [id number] [place] [address] Aug, [facility] [address] [id number] [place] [address] Aug, [facility] [address] [id number] [place] [address] Jul, [facility] [address] [id number] [place] [address] Jul, [facility] [address] [id number] [place] [address] Jun, [facility] [address] [id number] [place] [address] Jun, [facility] [address] [id number] [place] [address] May, [facility] [address] [id number] [place] [address] May, [facility] [address] [id number] [place] [address] May, [facility] [address] [id number] [place] [address] May, [facility] [address] [id number] [place] [address] 26 Apr, 2012 [facility] [place] [facility] [address] [id number] [place] [address] 24 Apr, 2012 [facility] [place] [facility] [address] [id number] [place] [address] 21 Apr, 2012 [facility] [address] [id number] [place] [address] Apr, [facility] [place] [facility] [address] [id number] [place] [address] Apr, [facility] [place] [facility] [address] [id number] [place] [address] Apr, [facility] [place] [facility] [address] [id number] [place] [address] Apr, [facility] [place] [facility] [address] [id number] [place] [address] Mar, [facility] [place] [facility] [address] [id number] [place] [address] December, [facility] [place] [facility] [address] [id number] [place] [address] December, [facility] [place] [facility] [address] [id number] [place] [address] December, [facility] [place] [facility] [address] [id number] [place] [address] Sep, [facility] [place] [facility] [address] [id number] [place] [address] Sep, [facility] [place] [facility] [address] [id number] [place] [address] Aug, [facility] [place] [facility] [address] [address] [id number] [place] [address] Aug, [facility] [place] [facility] [address] [id number], [place] [address] Aug, [facility] [place] [facility] [address] [id number] [place] [address] Jun, [facility] [place] [facility] [address] [id number] [place] [address] Jun, [facility] [place] [facility] [address] [id number] [place] [address] Jun, [facility] [place] [facility] [address] [id number], [place] [address] Jun, [facility] [address] [facility] [id number] [place] [address] Mar, [facility] [address] [facility] [id number], [place] [address] Jan, [facility] [address] [facility] [id number], [place] [address] December, IMMUNIZATIONS No Known Immunizations SOCIAL HISTORY Never Assessed REASON FOR VISIT Diabetes- Leonie Duval RN, A1C PLAN OF CARE Activity Details Follow Up 3 Months, prn Reason:CHM/DM VITAL SIGNS Height 64 in 2018-04-07 Weight 246 lbs 2018-04-07 Temperature 98.2 degrees Fahrenheit 2018-04-07 Heart Rate 68 bpm 2018-04-07 Respiratory Rate 16 2018-04-07 BMI 42.22 kg/m2 2018-04-07 Blood pressure systolic 132 mmHg 2018-04-07 Blood pressure diastolic 80 mmHg 2018-04-07 MEDICATIONS Medication Instructions Dosage Frequency Start Date [...] DAILY WITH FOOD 24h 90 days Active Omeprazole 40 mg Orally Once a day 1 capsule 24h 27 Nov, 2017 90 days Active Celecoxib 200 mg Orally Once a day 1 capsule with food 24h 13 Mar, 2018 Jul, 30 day(s) Active Quinapril HCl 20 MG TAKE ONE TABLET BY MOUTH ONCE DAILY 30 Active Oxycodone-Acetaminophen 5-325 MG Orally 2 times a day 1 tablet as needed 12h 24 Feb, 2018 28 days Active RESULTS Name Result Date Reference Range A1C (IN HOUSE) 2018-04-10 A1C IN HOUSE 6.1 4.3 - 5.6 % Previous A1c 6.7 Lot [id number] Exp date 11/12 PROCEDURES Procedure Date Ordered Result Body Site GLYCATED HEMOGLOBIN TEST Apr 07, 2018 [facility] VISIT ESTABLISHED PATIENT Apr 07, 2018 INSTRUCTIONS MEDICATIONS ADMINISTERED No Known Medications MEDICAL (GENERAL) HISTORY Type Description Date Medical History Hypertension Medical History Neuropathy Medical History Diabetes Medical History Restless leg syndrome Surgical History carpal tunnel left hand. Surgical History Right Knee Surgery Surgical History Left Knee SOA 03/21/16 Hospitalization History Left Knee SOA 03/21/16
--- OUTSIDE RECORDS SUMMARY | 2019-03-05 10:53 | XMS REPORT ---
Author Author PAGEMARSTORRES Organization [facility] Address [address] [place] [address] Care Team Providers Care Masonry Teacher Name Role Phone ABELTORRES Hollis Unavailable PROBLEMS Type Condition ICD9-CM Code MGF30-SS Code Onset Dates Condition Status SNOMED Code Problem Type 2 diabetes mellitus with diabetic peripheral angiopathy without gangrene, without long-term current use of insulin E11.51 Active 997805187 Problem Controlled restless leg syndrome G25.81 Active 01468962 Problem Benign essential HTN I10 Active 9110086 Problem OAB (overactive bladder) N32.81 Active 998515649 Problem Body mass index (BMI) of 40.0-44.9 in adult Z68.41 Active 744337596 Problem GERD (gastroesophageal reflux disease) K21.9 Active 402491566 Problem Degenerative arthritis of knee M17.9 Active 371481765 Problem Morbid (severe) obesity due to excess calories E66.01 Active 301749745 Problem Mild single current episode of major depressive disorder F32.0 Active 34395532 ALLERGIES No Information ENCOUNTERS Encounter Location Date Diagnosis [facility] [id number] [place] [address] May, [facility] [id number] [place] [address] Mar, Degenerative arthritis of knee M17.9 [facility] [id number] [place] [address] Mar, Type 2 diabetes mellitus with diabetic peripheral angiopathy without gangrene, without long-term current use of insulin E11.51 ; Benign essential HTN I10 ; Degenerative arthritis of knee M17.9 and Mild single current episode of major depressive disorder F32.0 [facility] [id number] [place] [address] Feb, [place] [address] [address] Feb, Degenerative arthritis of knee M17.9 [place] [id number] [place] [address] Feb, [place] [id number] [place] [address] Jan, Degenerative arthritis of knee M17.9 [place] [id number] [place] [address] Jan, Herpes zoster without complication B02.9 and BMI 40.0-44.9, adult Z68.41 [place] [id number] [place] [address] December, Degenerative arthritis of knee M17.9 [place] [id number] [place] [address] Nov, Benign essential HTN I10 ; Type [...] Z68.41 and GERD (gastroesophageal reflux disease) K21.9 [place] [address] [address] Nov, [place] [id number] [place] [address] Oct, Degenerative arthritis of knee M17.9 [place] [id number] [place] [address] Oct, [place] [id number] [address] Oct, Type 2 diabetes mellitus with diabetic peripheral angiopathy without gangrene, without long-term current use of insulin E11.51 and Controlled substance agreement signed Z79.899 [place] [id number] [place] [address] Oct, Degenerative arthritis of knee M17.9 [place] [id number] [place] [address] Sep, Type 2 diabetes mellitus with diabetic peripheral angiopathy without gangrene, without long-term current use of insulin E11.51 ; Benign essential HTN I10 ; BMI 40.0-44.9, adult Z68.41 ; Mild single current episode of major depressive disorder F32.0 ; OAB (overactive bladder) N32.81 ; Degenerative arthritis of knee M17.9 and GERD (gastroesophageal reflux disease) K21.9 [place] [address] [address] Aug, Joint pain and swelling due to Lyme disease A69.20 [place] [address] [address] Jun, [address] [address] May, 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 ; Benign essential HTN I10 ; 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 ; Body mass index (BMI) of 40.0-44.9 in adult Z68.41 and Morbid (severe) obesity due to excess calories E66.01 [place] [id number] [place] [address] May, Encounter for immunization Z23 [address] [address] May, 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 [place] [id number] [place] [address] Mar, Mild single current episode of major depressive disorder F32.0 [place] [address] [place] [address] Mar, Joint pain and swelling due to Lyme disease A69.20 [place] [id number] [place] [address] Feb, Izzy infection B37.9 [place] [id number] [place] [address] Jan, Insect bite (nonvenomous) of abdominal wall, initial encounter S30.861A and Joint pain and swelling due to Lyme disease A69.20 [place] [id number] [place] [address] Jan, [address] [address] 16 Sep, 2016 Mild single current episode of major depressive disorder F32.0 and 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 [place] [id number] [place] [address] Sep, Controlled restless leg syndrome G25.81 and Cramp of both lower extremities R25.2 [place] [id number] [place] [address] Aug, 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 ; Controlled restless leg syndrome G25.81 ; SI (stress incontinence), female N39.3 ; Benign essential HTN I10 ; 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 ; GERD (gastroesophageal reflux disease) K21.9 ; Screening cholesterol level Z13.220 and Mild single current episode of major depressive disorder F32.0 [place] [id number] [place] [address] Aug, [place] [id number] [place] [address] May, [place] [id number] [place] [address] May, Encounter for immunization Z23 [facility] [address] [address] Apr, [facility] [id number] [place] [address] Apr, [place] [id number] [place] [address] Apr, SAMANTHA (secretory otitis media), right H65.91 ; 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 ; Controlled restless leg syndrome G25.81 ; Edema extremities R60.0 ; SI (stress incontinence), female N39.3 ; Benign essential HTN I10 ; Degenerative arthritis of knee M17.9 and Major depressive disorder with single episode, remission status unspecified F32.9 [place] [id number] [place] [address] Apr, OME (otitis media with effusion), right H65.91 [place] [id number] [place] [address] Mar, [place] [id number] [place] [address] Mar, 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 ; Controlled restless leg syndrome G25.81 ; SI (stress incontinence), female N39.3 ; Benign essential HTN I10 ; GERD (gastroesophageal reflux disease) K21.9 ; Knee pain M25.569 and Major depressive disorder with single episode, remission status unspecified F32.9 [place] [address] [address] Mar, [place] [id number] [place] [address] Mar, [place] [id number] [place] [address] Jan, Pre-op exam Z01.818 [place] [id number] [place] [address] Oct, Urinary tract infection N39.0 ; Benign essential HTN I10 ; Controlled restless leg syndrome G25.81 ; Edema extremities R60.0 ; Degenerative arthritis of knee M17.9 and GERD (gastroesophageal reflux disease) K21.9 [place] [address] [address] Oct, Izzy albicans infection B37.9 [place] [id number] [place] [address] Sep, [place] [id number] [place] [address] Sep, UTI (urinary tract infection) N39.0 ; Benign essential HTN I10 ; 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 ; Controlled restless leg syndrome G25.81 ; Edema extremities R60.0 ; SI (stress incontinence), female N39.3 and 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 [place] [address] [address] Sep, UTI (urinary tract infection) N39.0 [place] [address] [place] [address] Aug, Pre-op evaluation Z01.818 [place] [address] [address] Aug, [place] [id number] [place] [address] Aug, [place] [address] [place] [address] Jul, Right hip pain M25.551 ; 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 and Knee pain M25.569 [place] [address] [address] Jul, [place] [id number] [place] [address] Jun, Knee pain M25.569 ; 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 and Degenerative arthritis of knee M17.9 [place] [id number] [place] [address] Jun, [place] [id number] [place] [address] Apr, Diabetes mellitus 250.00 ; Influenza vaccine administered V04.81 ; Incontinence 788.30 ; Restless legs syndrome 333.94 ; Sciatica 724.3 ; Essential hypertension, benign 401.1 ; Edema 782.3 and Depression (emotion) 311 [place] [address] [address] Mar, Pain in joint, lower leg 719.46 and Sciatica 724.3 [place] [address] [address] Mar, [place] [id number] [place] [address] Feb, Pain in joint, site unspecified 719.40 ; Other urinary incontinence 788.39 ; Pain in joint, lower leg 719.46 ; Edema 782.3 ; Sciatica 724.3 ; Essential hypertension, benign 401.1 ; Depression 311 ; Diabetes mellitus 250.00 ; Incontinence 788.30 and Restless legs syndrome 333.94 [place] [id number] [place] [address] Feb, [place] [id number] [place] [address] Nov, [place] [address] [address] Nov, [place] [id number] [place] [address] Oct, [place] [address] [address] Oct, [facility] [place] [facility] [address] [id number] [place] [address] Aug, [facility] [place] [facility] [address] [id number] [place] [address] Aug, [facility] [place] [facility] [address] [id number] [place] [address] Aug, [facility] [place] [facility] [address] [id number] [place] [address] Aug, [facility] [place] [facility] [address] [id number] [place] [address] Aug, [facility] [place] [facility] [address] [id number] [place] [address] Aug, [facility] [place] [facility] [address] [id number] [place] [address] Jun, [facility] [place] [facility] [address] [id number] [address] Jun, [facility] [place] [facility] [address] [id number] [place] [address] Jun, [facility] [place] [facility] [address] [id number] [place] [address] Jun, [facility] [place] [facility] [address] [id number] [place] [address] Jun, [facility] [place] [facility] [address] [id number] [place] [address] Jun, [facility] [place] [facility] [address] [id number] [place] [address] May, [facility] [place] [facility] [address] [id number] [place] [address] May, [facility] [place] [facility] [address] [id number] [place] [address] May, [facility] [place] [facility] [address] [id number] [place] [address] May, [facility] [place] [facility] [address] [id number] [place] [address] Apr, [facility] [place] [facility] [address] [id number] [place] [address] Apr, [facility] [place] [facility] [address] [id number] [place] [address] Apr, [facility] [place] [facility] [address] [id number] [place] [address] Apr, [facility] [place] [facility] [address] [id number] [place] [address] Mar, [facility] [place] [facility] [address] [id number] [place] [address] Mar, [facility] [place] [facility] [address] [id number] [place] [address] Mar, [facility] [place] [facility] [address] [id number] [place] [address] Mar, [facility] [place] [facility] [address] [id number] [place] [address] Mar, [facility] [place] [facility] [address] [id number] [place] [address] Mar, [facility] [place] [facility] [address] [id number] [place] [address] Feb, [facility] [place] [facility] [address] [id number] [place] [address] Feb, [facility] [place] [facility] [address] [id number] [place] [address] Jan, [facility] [place] [facility] [address] [id number] [place] [address] Jan, [facility] [place] [facility] [address] [id number] [place] [address] Jan, [facility] [place] [facility] [address] [id number] [place] [address] Jan, [facility] [place] [facility] [address] [id number] [place] [address] December, [facility] [place] [facility] [address] [id number] [place] [address] December, [facility] [place] [facility] [address] [id number] [place] [address] December, [facility] [place] [facility] [address] [id number] [place] [address] December, [facility] [place] [facility] [address] [id number] [place] [address] December, [facility] [place] [facility] [address] [id number] [place] [address] December, [facility] [place] [facility] [address] [id number] [place] [address] December, [facility] [place] [facility] [address] [id number] [place] [address] December, [facility] [place] [facility] [address] [id number] [place] [address] Nov, [facility] [place] [facility] [address] [id number] [place] [address] Nov, [facility] [place] [facility] [address] [id number] [place] [address] Nov, [facility] [place] [facility] [address] [id number] [place] [address] Nov, [facility] [place] [facility] [address] [id number] [place] [address] Oct, [facility] [place] [facility] [address] [id number] [place] [address] Oct, [facility] [place] [facility] [address] [id number] [place] [address] Oct, [facility] [place] [facility] [address] [id number] [place] [address] Oct, [facility] [place] [facility] [address] [id number] [place] [address] Oct, [facility] [place] [facility] [address] [id number] [place] [address] Oct, [facility] [place] [facility] [address] [id number] [place] [address] Oct, [facility] [place] [facility] [address] [id number] [place] [address] Oct, [facility] [place] [facility] [address] [id number] [place] [address] Sep, [facility] [place] [facility] [address] [id number] [place] [address] Sep, [facility] [place] [facility] [address] [id number] [place] [address] Sep, [facility] [place] [facility] [address] [id number] [place] [address] Sep, [facility] [place] [facility] [address] [facility] [id number] [place] [address] Sep, [facility] [place] [facility] [address] [facility] [id number] [place] [address] Aug, [facility] [place] [facility] [address] [id number] [place] [address] Aug, [facility] [place] [facility] [address] [id number] [place] [address] Jul, [facility] [place] [facility] [address] [id number] [place] [address] Jul, [facility] [place] [facility] [address] [id number] [place] [address] Jul, [facility] [place] [facility] [address] [id number] [place] [address] Jul, [facility] [address] [id number] [place] [address] Jul, [facility] [place] [facility] [address] [id number] [place] [address] Jul, [facility] [address] [id number] [place] [address] Jul, [facility] [address] [id number] [place] [address] Jun, [facility] [place] [facility] [address] [id number] [place] [address] Jun, [facility] [address] [id number] [place] [address] Jun, [facility] [address] [id number] [place] [address] Jun, [facility] [address] [id number] [place] [address] Jun, [facility] [address] [id number] [place] [address] Jun, [facility] [place] [facility] [address] [id number] [place] [address] Jun, [facility] [place] [facility] [address] [id number] [place] [address] Jun, [facility] [place] [facility] [address] [id number] [place] [address] Jun, [facility] [place] [facility] [address] [id number] [place] [address] Jun, [facility] [place] [facility] [address] [id number] [place] [address] 18 Jun, 2013 [facility] [place] [facility] [address] [id number] [place] [address] Jun, [facility] [place] [facility] [address] [id number] [place] [address] Jun, [facility] [place] [facility] [address] [id number] [place] [address] May, [facility] [place] [facility] [address] [id number] [place] [address] May, [facility] [place] [facility] [address] [id number] [place] [address] May, [facility] [place] [facility] [address] [id number] [place] [address] May, [facility] [place] [facility] [address] [id number] [place] [address] May, [facility] [place] [facility] [address] [id number] [place] [address] May, [facility] [place] [facility] [address] [id number] [place] [address] May, [facility] [place] [facility] [address] [id number] [place] [address] May, [facility] [place] [facility] [address] [id number] [place] [address] May, [facility] [place] [facility] [address] [id number] [address] 23 Apr, 2013 [facility] [place] [facility] [address] [id number] [place] [address] 21 Apr, 2013 [facility] [place] [facility] [address] [id number] [place] [address] 11 Apr, 2013 [facility] [place] [facility] [address] [id number] [place] [address] 09 Apr, 2013 [facility] [place] [facility] [address] [id number] [place] [address] 15 Mar, 2013 [facility] [place] [facility] [address] [id number] [place] [address] 14 Mar, 2013 [facility] [address] [id number] [place] [address] Mar, [facility] [address] [id number] [place] [address] Jan, [facility] [address] [id number] [place] [address] Jan, [facility] [address] [id number] [place] [address] Jan, [facility] [address] [id number] [place] [address] Jan, [facility] [address] [id number] [place] [address] December, [facility] [address] [id number] [place] [address] Nov, [facility] [address] [id number] [place] [address] Nov, [facility] [address] [id number] [place] [address] Sep, [facility] [address] [id number] [place] [address] Sep, [facility] [address] [id number] [place] [address] Sep, [facility] [address] [id number] [place] [address] Aug, [facility] [place] [facility] [address] [id number] [place] [address] Aug, [facility] [place] [facility] [address] [id number] [place] [address] Aug, [facility] [place] [facility] [address] [id number] [place] [address] Aug, [facility] [place] [facility] [address] [id number] [place] [address] Aug, [facility] [place] [facility] [address] [id number] [place] [address] Aug, [facility] [place] [facility] [address] [id number] [place] [address] Aug, [facility] [place] [facility] [address] [id number] [place] [address] Jul, [facility] [place] [facility] [address] [id number] [place] [address] Jul, [facility] [place] [facility] [address] [id number] [place] [address] Jun, [facility] [place] [facility] [address] [id number] [place] [address] Jun, [facility] [place] [facility] [address] [id number] [place] [address] May, [facility] [place] [facility] [address] [id number] [place] [address] May, [facility] [place] [facility] [address] [id number] [place] [address] May, [facility] [place] [facility] [address] [id number] [address] May, [facility] [place] [facility] [address] [id number] [place] [address] 26 Apr, 2012 [facility] [place] [facility] [address] [id number] [place] [address] 24 Apr, 2012 [facility] [place] [facility] [address] [id number] [place] [address] 21 Apr, 2012 [facility] [place] [facility] [address] [id number] [place] [address] 20 Apr, 2012 [facility] [place] [facility] [address] [id number] [place] [address] 20 Apr, 2012 [facility] [address] [id number] [place] [address] 19 Apr, 2012 [facility] [place] [facility] [address] [id number] [place] [address] Apr, [facility] [place] [facility] [address] [id number] [place] [address] Mar, [facility] [place] [facility] [address] [id number] [place] [address] December, [facility] [place] [facility] [address] [id number] [place] [address] December, [facility] [place] [facility] [address] [id number] [place] [address] December, [facility] [address] [id number] [place] [address] Sep, [facility] [place] [facility] [address] [id number] [place] [address] Sep, [facility] [place] [facility] [address] [id number] [place] [address] Aug, [facility] [place] [facility] [address] [id number] [place] [address] Aug, [facility] [place] [facility] [address] [id number] [place] [address] Aug, [facility] [place] [facility] [address] [id number] [place] [address] Jun, [facility] [place] [facility] [address] [id number] [place] [address] Jun, [facility] [place] [facility] [address] [id number] [place] [address] Jun, [facility] [place] [facility] [address] [id number] [place] [address] Jun, [facility] [address] [facility] [id number] [place] [address] Mar, [facility] [address] [facility] [id number] [place] [address] Jan, [facility] [address] [facility] [id number] [place] [address] December, IMMUNIZATIONS No Known Immunizations SOCIAL HISTORY Never Assessed REASON FOR VISIT Refill request PLAN OF CARE VITAL SIGNS MEDICATIONS Unknown [...]
--- OUTSIDE RECORDS SUMMARY | 2019-03-05 10:53 | XMS REPORT ---
Author Author PAGEMARSTORRES Organization [facility] Address [address] [place] [address] Care Team Providers Care Chief Engineer Production Name Role Phone ABELTORRES Hollis Unavailable PROBLEMS Type Condition ICD9-CM Code EGM57-NH Code Onset Dates Condition Status SNOMED Code Problem Type 2 diabetes mellitus with diabetic peripheral angiopathy without gangrene, without long-term current use of insulin E11.51 Active 423582991 Problem Controlled restless leg syndrome G25.81 Active 32224753 Problem Benign essential HTN I10 Active 2498879 Problem OAB (overactive bladder) N32.81 Active 437457756 Problem Body mass index (BMI) of 40.0-44.9 in adult Z68.41 Active 902820870 Problem GERD (gastroesophageal reflux disease) K21.9 Active 590200480 Problem Degenerative arthritis of knee M17.9 Active 154132771 Problem Morbid (severe) obesity due to excess calories E66.01 Active 380191987 Problem Mild single current episode of major depressive disorder F32.0 Active 92171090 ALLERGIES No Information ENCOUNTERS Encounter Location Date Diagnosis [facility] [id number] [place] [address] May, [facility] [id number] [place] [address] Mar, Degenerative arthritis of knee M17.9 [facility] [id number] [place] [address] Mar, Type 2 diabetes mellitus with diabetic peripheral angiopathy without gangrene, without long-term current use of insulin E11.51 ; Benign essential HTN I10 ; Degenerative arthritis of knee M17.9 and Mild single current episode of major depressive disorder F32.0 [facility] [id number] [place] [address] Feb, [place] [address] [address] Feb, Degenerative arthritis of knee M17.9 [place] [id number] [place] [address] Feb, [place] [id number] [place] [address] Jan, Degenerative arthritis of knee M17.9 [place] [id number] [place] [address] Jan, Herpes zoster without complication B02.9 and BMI 40.0-44.9, adult Z68.41 [place] [id number] [place] [address] December, Degenerative arthritis of knee M17.9 [place] [id number] [place] [address] Nov, Benign essential HTN I10 ; Type [...] Z68.41 and GERD (gastroesophageal reflux disease) K21.9 [place] [address] [address] Nov, [place] [id number] [place] [address] Oct, Degenerative arthritis of knee M17.9 [place] [id number] [place] [address] Oct, [place] [id number] [address] Oct, Type 2 diabetes mellitus with diabetic peripheral angiopathy without gangrene, without long-term current use of insulin E11.51 and Controlled substance agreement signed Z79.899 [place] [id number] [place] [address] Oct, Degenerative arthritis of knee M17.9 [place] [id number] [place] [address] Sep, Type 2 diabetes mellitus with diabetic peripheral angiopathy without gangrene, without long-term current use of insulin E11.51 ; Benign essential HTN I10 ; BMI 40.0-44.9, adult Z68.41 ; Mild single current episode of major depressive disorder F32.0 ; OAB (overactive bladder) N32.81 ; Degenerative arthritis of knee M17.9 and GERD (gastroesophageal reflux disease) K21.9 [place] [address] [address] Aug, Joint pain and swelling due to Lyme disease A69.20 [place] [address] [address] Jun, [address] [address] May, 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 ; Benign essential HTN I10 ; 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 ; Body mass index (BMI) of 40.0-44.9 in adult Z68.41 and Morbid (severe) obesity due to excess calories E66.01 [place] [id number] [place] [address] May, Encounter for immunization Z23 [address] [address] May, 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 [place] [id number] [place] [address] Mar, Mild single current episode of major depressive disorder F32.0 [place] [id number] [place] [address] Mar, Joint pain and swelling due to Lyme disease A69.20 [place] [id number] [place] [address] Feb, Izzy infection B37.9 [place] [id number] [place] [address] Jan, Insect bite (nonvenomous) of abdominal wall, initial encounter S30.861A and Joint pain and swelling due to Lyme disease A69.20 [place] [id number] [place] [address] Jan, [address] [address] 16 Sep, 2016 Mild single current episode of major depressive disorder F32.0 and 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 [place] [id number] [place] [address] Sep, Controlled restless leg syndrome G25.81 and Cramp of both lower extremities R25.2 [place] [id number] [place] [address] Aug, 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 ; Controlled restless leg syndrome G25.81 ; SI (stress incontinence), female N39.3 ; Benign essential HTN I10 ; 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 ; GERD (gastroesophageal reflux disease) K21.9 ; Screening cholesterol level Z13.220 and Mild single current episode of major depressive disorder F32.0 [place] [id number] [place] [address] Aug, [place] [id number] [place] [address] May, [place] [id number] [place] [address] May, Encounter for immunization Z23 [facility] [address] [address] Apr, [facility] [id number] [place] [address] Apr, [place] [id number] [place] [address] Apr, SAMANTHA (secretory otitis media), right H65.91 ; 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 ; Controlled restless leg syndrome G25.81 ; Edema extremities R60.0 ; SI (stress incontinence), female N39.3 ; Benign essential HTN I10 ; Degenerative arthritis of knee M17.9 and Major depressive disorder with single episode, remission status unspecified F32.9 [place] [id number] [place] [address] Apr, OME (otitis media with effusion), right H65.91 [place] [id number] [place] [address] Mar, [place] [id number] [place] [address] Mar, 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 ; Controlled restless leg syndrome G25.81 ; SI (stress incontinence), female N39.3 ; Benign essential HTN I10 ; GERD (gastroesophageal reflux disease) K21.9 ; Knee pain M25.569 and Major depressive disorder with single episode, remission status unspecified F32.9 [place] [address], [place] [address] Mar, [place] [id number] [place] [address] Mar, [place] [id number] [place] [address] Jan, Pre-op exam Z01.818 [place] [id number] [place] [address] Oct, Urinary tract infection N39.0 ; Benign essential HTN I10 ; Controlled restless leg syndrome G25.81 ; Edema extremities R60.0 ; Degenerative arthritis of knee M17.9 and GERD (gastroesophageal reflux disease) K21.9 [place] [address] [address] Oct, Izzy albicans infection B37.9 [place] [id number] [place] [address] Sep, [place] [id number] [place] [address] Sep, UTI (urinary tract infection) N39.0 ; Benign essential HTN I10 ; 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 ; Controlled restless leg syndrome G25.81 ; Edema extremities R60.0 ; SI (stress incontinence), female N39.3 and 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 [place] [address], [place] [address] Sep, UTI (urinary tract infection) N39.0 [place] [id number] [place] [address] Aug, Pre-op evaluation Z01.818 [place] [address], [place] [address] Aug, [place] [id number] [place] [address] Aug, [place] [id number] [place] [address] Jul, Right hip pain M25.551 ; 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 and Knee pain M25.569 [place] [address], [place] [address] Jul, [place] [id number] [place] [address] Jun, Knee pain M25.569 ; 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 and Degenerative arthritis of knee M17.9 [place] [id number] [place] [address] Jun, [place] [id number] [place] [address] Apr, Diabetes mellitus 250.00 ; Influenza vaccine administered V04.81 ; Incontinence 788.30 ; Restless legs syndrome 333.94 ; Sciatica 724.3 ; Essential hypertension, benign 401.1 ; Edema 782.3 and Depression (emotion) 311 [place] [address] [address] Mar, Pain in joint, lower leg 719.46 and Sciatica 724.3 [place] [address] [address] Mar, [place] [id number] [place] [address] Feb, Pain in joint, site unspecified 719.40 ; Other urinary incontinence 788.39 ; Pain in joint, lower leg 719.46 ; Edema 782.3 ; Sciatica 724.3 ; Essential hypertension, benign 401.1 ; Depression 311 ; Diabetes mellitus 250.00 ; Incontinence 788.30 and Restless legs syndrome 333.94 [place] [id number] [place] [address] Feb, [place] [id number] [place] [address] Nov, [place] [address] [address] Nov, [place] [id number] [place] [address] Oct, [place] [address] [address] Oct, [facility] [place] [facility] [address] [id number] [place] [address] Aug, [facility] [place] [facility] [address] [id number] [place] [address] Aug, [facility] [place] [facility] [address] [id number] [place] [address] Aug, [facility] [place] [facility] [address] [id number] [place] [address] Aug, [facility] [place] [facility] [address] [id number] [place] [address] Aug, [facility] [place] [facility] [address] [id number] [place] [address] Aug, [facility] [place] [facility] [address] [id number] [place] [address] Jun, [facility] [place] [facility] [address] [id number] [address] Jun, [facility] [place] [facility] [address] [id number] [address] Jun, [facility] [place] [facility] [address] [id number] [place] [address] Jun, [facility] [place] [facility] [address] [id number], [place] [address] Jun, [facility] [place] [facility] [address] [id number], [place] [address] Jun, [facility] [place] [facility] [address] [id number] [place] [address] May, [facility] [place] [facility] [address] [id number] [place] [address] May, [facility] [place] [facility] [address] [id number] [address] May, [facility] [place] [facility] [address] [id number] [place] [address] May, [facility] [place] [facility] [address] [id number] [place] [address] Apr, [facility] [place] [facility] [address] [id number] [place] [address] Apr, [facility] [place] [facility] [address] [id number] [place] [address] Apr, [facility] [place] [facility] [address] [id number] [place] [address] Apr, [facility] [place] [facility] [address] [id number] [place] [address] Mar, [facility] [place] [facility] [address] [id number] [place] [address] Mar, [facility] [place] [facility] [address] [id number] [place] [address] Mar, [facility] [place] [facility] [address] [id number] [place] [address] Mar, [facility] [place] [facility] [address] [id number] [place] [address] Mar, [facility] [place] [facility] [address] [id number] [place] [address] Mar, [facility] [place] [facility] [address] [id number] [place] [address] Feb, [facility] [place] [facility] [address] [id number] [place] [address] Feb, [facility] [place] [facility] [address] [id number] [place] [address] Jan, [facility] [place] [facility] [address] [id number] [place] [address] Jan, [facility] [place] [facility] [address] [id number] [place] [address] Jan, [facility] [place] [facility] [address] [id number] [place] [address] Jan, [facility] [place] [facility] [address] [id number] [place] [address] December, [facility] [place] [facility] [address] [id number] [place] [address] December, [facility] [place] [facility] [address] [id number] [place] [address] December, [facility] [place] [facility] [address] [id number] [place] [address] December, [facility] [place] [facility] [address] [id number] [place] [address] December, [facility] [place] [facility] [address] [id number] [place] [address] December, [facility] [place] [facility] [address] [id number] [place] [address] December, [facility] [place] [facility] [address] [id number] [place] [address] December, [facility] [place] [facility] [address] [id number] [place] [address] Nov, [facility] [place] [facility] [address] [id number] [place] [address] Nov, [facility] [place] [facility] [address] [id number] [place] [address] Nov, [facility] [place] [facility] [address] [id number] [place] [address] Nov, [facility] [place] [facility] [address] [id number] [place] [address] Oct, [facility] [place] [facility] [address] [id number] [place] [address] Oct, [facility] [place] [facility] [address] [id number] [place] [address] Oct, [facility] [place] [facility] [address] [id number] [place] [address] Oct, [facility] [place] [facility] [address] [id number] [place] [address] Oct, [facility] [place] [facility] [address] [id number] [place] [address] Oct, [facility] [place] [facility] [address] [id number] [place] [address] Oct, [facility] [place] [facility] [address] [id number] [place] [address] Oct, [facility] [place] [facility] [address] [id number] [place] [address] Sep, [facility] [place] [facility] [address] [id number] [place] [address] Sep, [facility] [place] [facility] [address] [id number] [place] [address] Sep, [facility] [place] [facility] [address] [id number] [place] [address] Sep, [facility] [place] [facility] [address] [facility] [id number] [place] [address] Sep, [facility] [place] [facility] [address] [facility] [id number] [place] [address] Aug, [facility] [place] [facility] [address] [id number] [place] [address] Aug, [facility] [place] [facility] [address] [id number] [place] [address] Jul, [facility] [place] [facility] [address] [id number] [place] [address] Jul, [facility] [place] [facility] [address] [id number] [place] [address] Jul, [facility] [place] [facility] [address] [id number] [place] [address] Jul, [facility] [address] [id number] [place] [address] Jul, [facility] [place] [facility] [address] [id number] [place] [address] Jul, [facility] [address] [id number] [place] [address] Jul, [facility] [address] [id number] [place] [address] Jun, [facility] [place] [facility] [address] [id number] [place] [address] Jun, [facility] [address] [id number] [place] [address] Jun, [facility] [address] [id number] [place] [address] Jun, [facility] [address] [id number] [place] [address] Jun, [facility] [address] [id number] [place] [address] Jun, [facility] [place] [facility] [address] [id number] [place] [address] Jun, [facility] [place] [facility] [address] [id number] [place] [address] Jun, [facility] [place] [facility] [address] [id number] [place] [address] Jun, [facility] [place] [facility] [address] [id number] [place] [address] Jun, [facility] [place] [facility] [address] [id number] [place] [address] 18 Jun, 2013 [facility] [place] [facility] [address] [id number] [place] [address] Jun, [facility] [place] [facility] [address] [id number] [place] [address] Jun, [facility] [place] [facility] [address] [id number] [place] [address] May, [facility] [place] [facility] [address] [id number] [place] [address] May, [facility] [place] [facility] [address] [id number] [place] [address] May, [facility] [place] [facility] [address] [id number] [place] [address] May, [facility] [place] [facility] [address] [id number] [place] [address] May, [facility] [place] [facility] [address] [id number] [place] [address] May, [facility] [place] [facility] [address] [id number] [place] [address] May, [facility] [place] [facility] [address] [id number] [place] [address] May, [facility] [place] [facility] [address] [id number] [place] [address] May, [facility] [place] [facility] [address] [id number], [place] [address] 23 Apr, 2013 [facility] [place] [facility] [address] [id number], [place] [address] 21 Apr, 2013 [facility] [place] [facility] [address] [id number] [place] [address] 11 Apr, 2013 [facility] [place] [facility] [address] [id number] [place] [address] 09 Apr, 2013 [facility] [place] [facility] [address] [id number] [place] [address] 15 Mar, 2013 [facility] [place] [facility] [address] [id number] [place] [address] 14 Mar, 2013 [facility] [address] [id number] [place] [address] Mar, [facility] [address] [id number] [place] [address] Jan, [facility] [address] [id number] [place] [address] Jan, [facility] [address] [id number] [place] [address] Jan, [facility] [address] [id number] [place] [address] Jan, [facility] [address] [id number] [place] [address] December, [facility] [address] [id number] [place] [address] Nov, [facility] [address] [id number] [place] [address] Nov, [facility] [address] [id number] [place] [address] Sep, [facility] [address] [id number] [place] [address] Sep, [facility] [address] [id number] [place] [address] Sep, [facility] [address] [id number] [place] [address] Aug, [facility] [place] [facility] [address] [id number] [place] [address] Aug, [facility] [place] [facility] [address] [id number] [place] [address] Aug, [facility] [place] [facility] [address] [id number] [place] [address] Aug, [facility] [place] [facility] [address] [id number] [place] [address] Aug, [facility] [place] [facility] [address] [id number] [place] [address] Aug, [facility] [place] [facility] [address] [id number] [place] [address] Aug, [facility] [place] [facility] [address] [id number] [place] [address] Jul, [facility] [place] [facility] [address] [id number] [place] [address] Jul, [facility] [place] [facility] [address] [id number] [place] [address] Jun, [facility] [place] [facility] [address] [id number] [place] [address] Jun, [facility] [place] [facility] [address] [id number] [place] [address] May, [facility] [place] [facility] [address] [id number] [place] [address] May, [facility] [place] [facility] [address] [id number] [place] [address] May, [facility] [place] [facility] [address] [id number] [address] May, [facility] [place] [facility] [address] [id number], [place] [address] 26 Apr, 2012 [facility] [place] [facility] [address] [id number] [place] [address] 24 Apr, 2012 [facility] [place] [facility] [address] [id number] [place] [address] 21 Apr, 2012 [facility] [place] [facility] [address] [id number] [place] [address] 20 Apr, 2012 [facility] [place] [facility] [address] [id number] [place] [address] 20 Apr, 2012 [facility] [address] [id number] [place] [address] 19 Apr, 2012 [facility] [place] [facility] [address] [id number] [place] [address] Apr, [facility] [place] [facility] [address] [id number] [place] [address] Mar, [facility] [place] [facility] [address] [id number] [place] [address] December, [facility] [place] [facility] [address] [id number] [place] [address] December, [facility] [place] [facility] [address] [id number] [place] [address] December, [facility] [address] [id number] [place] [address] Sep, [facility] [place] [facility] [address] [id number] [place] [address] Sep, [facility] [place] [facility] [address] [id number] [place] [address] Aug, [facility] [place] [facility] [address] [id number] [place] [address] Aug, [facility] [place] [facility] [address] [id number] [place] [address] Aug, [facility] [place] [facility] [address] [id number] [place] [address] Jun, [facility] [place] [facility] [address] [id number] [place] [address] Jun, [facility] [place] [facility] [address] [id number] [place] [address] Jun, [facility] [place] [facility] [address] [id number] [place] [address] Jun, [facility] [address] [facility] [id number] [place] [address] Mar, [facility] [address] [facility] [id number], [place] [address] Jan, [facility] [facility] [address] [facility] [id number] [place] [address] December, IMMUNIZATIONS No Known Immunizations SOCIAL HISTORY Never Assessed REASON FOR VISIT Controlled Med Refill PLAN OF CARE VITAL SIGNS MEDICATIONS Medication Instructions Dosage Frequency Start Date End Date Duration Status Oxycodone-Acetaminophen 5-325 MG Orally 2 times a day 1 tablet as needed 12h Jan, 28 days Active RESULTS No Results PROCEDURES [...]
--- OUTSIDE RECORDS SUMMARY | 2019-03-05 10:54 | XMS REPORT ---
Author Author PAGEMARSTORRES Organization [facility] Address [address] [place] [address] Care Team Providers Care Phone Banker Name Role Phone ABELTORRES Hollis Unavailable PROBLEMS Type Condition ICD9-CM Code ANY09-YC Code Onset Dates Condition Status SNOMED Code Problem Type 2 diabetes mellitus with diabetic peripheral angiopathy without gangrene, without long-term current use of insulin E11.51 Active 667484163 Problem Controlled restless leg syndrome G25.81 Active 90204619 Problem Benign essential HTN I10 Active 1507218 Problem OAB (overactive bladder) N32.81 Active 030942682 Problem Body mass index (BMI) of 40.0-44.9 in adult Z68.41 Active 653706565 Problem GERD (gastroesophageal reflux disease) K21.9 Active 606851761 Problem Degenerative arthritis of knee M17.9 Active 274039481 Problem Morbid (severe) obesity due to excess calories E66.01 Active 102176930 Problem Mild single current episode of major depressive disorder F32.0 Active [id number] ALLERGIES No Information ENCOUNTERS Encounter Location Date Diagnosis [facility] [id number] [place] [address] May, [facility] [id number] [place] [address] Mar, Degenerative arthritis of knee M17.9 [facility] [id number] [place] [address] Mar, Type 2 diabetes mellitus with diabetic peripheral angiopathy without gangrene, without long-term current use of insulin E11.51 ; Benign essential HTN I10 ; Degenerative arthritis of knee M17.9 and Mild single current episode of major depressive disorder F32.0 [facility] [id number] [place] [address] Feb, [place] [address] [address] Feb, Degenerative arthritis of knee M17.9 [place] [id number] [place] [address] Feb, [place] [id number] [place] [address] Jan, Degenerative arthritis of knee M17.9 [place] [id number] [place] [address] Jan, Herpes zoster without complication B02.9 and BMI 40.0-44.9, adult Z68.41 [place] [id number] [place] [address] December, Degenerative arthritis of knee M17.9 [place] [id number] [place] [address] Nov, Benign essential HTN I10 ; Type [...] Z68.41 and GERD (gastroesophageal reflux disease) K21.9 [place] [address] [address] Nov, [place] [id number] [place] [address] Oct, Degenerative arthritis of knee M17.9 [place] [id number] [place] [address] Oct, [place] [id number] [address] Oct, Type 2 diabetes mellitus with diabetic peripheral angiopathy without gangrene, without long-term current use of insulin E11.51 and Controlled substance agreement signed Z79.899 [place] [id number] [place] [address] Oct, Degenerative arthritis of knee M17.9 [place] [id number] [place] [address] Sep, Type 2 diabetes mellitus with diabetic peripheral angiopathy without gangrene, without long-term current use of insulin E11.51 ; Benign essential HTN I10 ; BMI 40.0-44.9, adult Z68.41 ; Mild single current episode of major depressive disorder F32.0 ; OAB (overactive bladder) N32.81 ; Degenerative arthritis of knee M17.9 and GERD (gastroesophageal reflux disease) K21.9 [place] [address] [address] Aug, Joint pain and swelling due to Lyme disease A69.20 [place] [address] [address] Jun, [address] [address] May, 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 ; Benign essential HTN I10 ; 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 ; Body mass index (BMI) of 40.0-44.9 in adult Z68.41 and Morbid (severe) obesity due to excess calories E66.01 [place] [id number] [place] [address] May, Encounter for immunization Z23 [address] [address] May, 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 [place] [id number] [place] [address] Mar, Mild single current episode of major depressive disorder F32.0 [place] [id number] [place] [address] Mar, Joint pain and swelling due to Lyme disease A69.20 [place] [id number] [place] [address] Feb, Izzy infection B37.9 [place] [id number] [place] [address] Jan, Insect bite (nonvenomous) of abdominal wall, initial encounter S30.861A and Joint pain and swelling due to Lyme disease A69.20 [place] [id number] [place] [address] Jan, [address] [address] 16 Sep, 2016 Mild single current episode of major depressive disorder F32.0 and 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 [place] [id number] [place] [address] Sep, Controlled restless leg syndrome G25.81 and Cramp of both lower extremities R25.2 [place] [id number] [place] [address] Aug, 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 ; Controlled restless leg syndrome G25.81 ; SI (stress incontinence), female N39.3 ; Benign essential HTN I10 ; 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 ; GERD (gastroesophageal reflux disease) K21.9 ; Screening cholesterol level Z13.220 and Mild single current episode of major depressive disorder F32.0 [place] [id number] [place] [address] Aug, [place] [id number] [place] [address] May, [place] [id number] [place] [address] May, Encounter for immunization Z23 [facility] [address] [address] Apr, [facility] [id number] [place] [address] Apr, [place] [id number] [place] [address] Apr, SAMANTHA (secretory otitis media), right H65.91 ; 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 ; Controlled restless leg syndrome G25.81 ; Edema extremities R60.0 ; SI (stress incontinence), female N39.3 ; Benign essential HTN I10 ; Degenerative arthritis of knee M17.9 and Major depressive disorder with single episode, remission status unspecified F32.9 [place] [id number] [place] [address] Apr, OME (otitis media with effusion), right H65.91 [place] [id number] [place] [address] Mar, [place] [id number] [place] [address] Mar, 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 ; Controlled restless leg syndrome G25.81 ; SI (stress incontinence), female N39.3 ; Benign essential HTN I10 ; GERD (gastroesophageal reflux disease) K21.9 ; Knee pain M25.569 and Major depressive disorder with single episode, remission status unspecified F32.9 [place] [address] [address] Mar, [place] [id number] [place] [address] Mar, [place] [id number] [place] [address] Jan, Pre-op exam Z01.818 [place] [id number] [place] [address] Oct, Urinary tract infection N39.0 ; Benign essential HTN I10 ; Controlled restless leg syndrome G25.81 ; Edema extremities R60.0 ; Degenerative arthritis of knee M17.9 and GERD (gastroesophageal reflux disease) K21.9 [place] [address] [address] Oct, Izzy albicans infection B37.9 [place] [id number] [place] [address] Sep, [place] [id number] [place] [address] Sep, UTI (urinary tract infection) N39.0 ; Benign essential HTN I10 ; 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 ; Controlled restless leg syndrome G25.81 ; Edema extremities R60.0 ; SI (stress incontinence), female N39.3 and 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 [place] [address] [address] Sep, UTI (urinary tract infection) N39.0 [place] [id number] [place] [address] Aug, Pre-op evaluation Z01.818 [place] [address] [address] Aug, [place] [id number] [place] [address] Aug, [place] [id number] [place] [address] Jul, Right hip pain M25.551 ; 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 and Knee pain M25.569 [place] [address] [address] Jul, [place] [id number] [place] [address] Jun, Knee pain M25.569 ; 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 and Degenerative arthritis of knee M17.9 [place] [id number] [place] [address] Jun, [place] [id number] [place] [address] Apr, Diabetes mellitus 250.00 ; Influenza vaccine administered V04.81 ; Incontinence 788.30 ; Restless legs syndrome 333.94 ; Sciatica 724.3 ; Essential hypertension, benign 401.1 ; Edema 782.3 and Depression (emotion) 311 [place] [address] [address] Mar, Pain in joint, lower leg 719.46 and Sciatica 724.3 [place] [address] [address] Mar, [place] [id number] [place] [address] Feb, Pain in joint, site unspecified 719.40 ; Other urinary incontinence 788.39 ; Pain in joint, lower leg 719.46 ; Edema 782.3 ; Sciatica 724.3 ; Essential hypertension, benign 401.1 ; Depression 311 ; Diabetes mellitus 250.00 ; Incontinence 788.30 and Restless legs syndrome 333.94 [place] [id number] [place] [address] Feb, [place] [id number] [place] [address] Nov, [place] [address] [address] Nov, [place] [id number] [place] [address] Oct, [place] [address] [address] Oct, [facility] [place] [facility] [address] [id number] [place] [address] Aug, [facility] [place] [facility] [address] [id number] [place] [address] Aug, [facility] [place] [facility] [address] [id number] [place] [address] Aug, [facility] [place] [facility] [address] [id number] [place] [address] Aug, [facility] [place] [facility] [address] [id number] [place] [address] Aug, [facility] [place] [facility] [address] [id number] [place] [address] Aug, [facility] [place] [facility] [address] [id number] [place] [address] Jun, [facility] [place] [facility] [address] [id number], [place] [address] Jun, [facility] [place] [facility] [address] [id number], [place] [address] Jun, [facility] [place] [facility] [address] [id number] [place] [address] Jun, [facility] [place] [facility] [address] [id number], [place] [address] Jun, [facility] [place] [facility] [address] [id number], [place] [address] Jun, [facility] [place] [facility] [address] [id number] [place] [address] May, [facility] [place] [facility] [address] [id number] [place] [address] May, [facility] [place] [facility] [address] [id number], [place] [address] May, [facility] [place] [facility] [address] [id number] [place] [address] May, [facility] [place] [facility] [address] [id number] [place] [address] Apr, [facility] [place] [facility] [address] [id number] [place] [address] Apr, [facility] [place] [facility] [address] [id number] [place] [address] Apr, [facility] [place] [facility] [address] [id number] [place] [address] Apr, [facility] [place] [facility] [address] [id number] [place] [address] Mar, [facility] [place] [facility] [address] [id number] [place] [address] Mar, [facility] [place] [facility] [address] [id number] [place] [address] Mar, [facility] [place] [facility] [address] [id number] [place] [address] Mar, [facility] [place] [facility] [address] [id number] [place] [address] Mar, [facility] [place] [facility] [address] [id number] [place] [address] Mar, [facility] [place] [facility] [address] [id number] [place] [address] Feb, [facility] [place] [facility] [address] [id number] [place] [address] Feb, [facility] [place] [facility] [address] [id number] [place] [address] Jan, [facility] [place] [facility] [address] [id number] [place] [address] Jan, [facility] [place] [facility] [address] [id number] [place] [address] Jan, [facility] [place] [facility] [address] [id number] [place] [address] Jan, [facility] [place] [facility] [address] [id number] [place] [address] December, [facility] [place] [facility] [address] [id number] [place] [address] December, [facility] [place] [facility] [address] [id number] [place] [address] December, [facility] [place] [facility] [address] [id number] [place] [address] December, [facility] [place] [facility] [address] [id number] [place] [address] December, [facility] [place] [facility] [address] [id number] [place] [address] December, [facility] [place] [facility] [address] [id number] [place] [address] December, [facility] [place] [facility] [address] [id number] [place] [address] December, [facility] [place] [facility] [address] [id number] [place] [address] Nov, [facility] [place] [facility] [address] [id number] [place] [address] Nov, [facility] [place] [facility] [address] [id number] [place] [address] Nov, [facility] [place] [facility] [address] [id number] [place] [address] Nov, [facility] [place] [facility] [address] [id number] [place] [address] Oct, [facility] [place] [facility] [address] [id number] [place] [address] Oct, [facility] [place] [facility] [address] [id number] [place] [address] Oct, [facility] [place] [facility] [address] [id number] [place] [address] Oct, [facility] [place] [facility] [address] [id number] [place] [address] Oct, [facility] [place] [facility] [address] [id number] [place] [address] Oct, [facility] [place] [facility] [address] [id number] [place] [address] Oct, [facility] [place] [facility] [address] [id number] [place] [address] Oct, [facility] [place] [facility] [address] [id number] [place] [address] Sep, [facility] [place] [facility] [address] [id number] [place] [address] Sep, [facility] [place] [facility] [address] [id number] [place] [address] Sep, [facility] [place] [facility] [address] [id number] [place] [address] Sep, [facility] [place] [facility] [address] [facility] [id number] [place] [address] Sep, [facility] [place] [facility] [address] [facility] [id number] [place] [address] Aug, [facility] [place] [facility] [address] [id number] [place] [address] Aug, [facility] [place] [facility] [address] [id number] [place] [address] Jul, [facility] [place] [facility] [address] [id number] [place] [address] Jul, [facility] [place] [facility] [address] [id number] [place] [address] Jul, [facility] [place] [facility] [address] [id number] [place] [address] Jul, [facility] [address] [id number] [place] [address] Jul, [facility] [place] [facility] [address] [id number] [place] [address] Jul, [facility] [address] [id number] [place] [address] Jul, [facility] [address] [id number] [place] [address] Jun, [facility] [place] [facility] [address] [id number] [place] [address] Jun, [facility] [address] [id number] [place] [address] Jun, [facility] [address] [id number] [place] [address] Jun, [facility] [address] [id number] [place] [address] Jun, [facility] [address] [id number] [place] [address] Jun, [facility] [place] [facility] [address] [id number] [place] [address] Jun, [facility] [place] [facility] [address] [id number] [place] [address] Jun, [facility] [place] [facility] [address] [id number] [place] [address] Jun, [facility] [place] [facility] [address] [id number] [place] [address] Jun, [facility] [place] [facility] [address] [id number] [place] [address] 18 Jun, 2013 [facility] [place] [facility] [address] [id number] [place] [address] Jun, [facility] [place] [facility] [address] [id number] [place] [address] Jun, [facility] [place] [facility] [address] [id number] [place] [address] May, [facility] [place] [facility] [address] [id number] [place] [address] May, [facility] [place] [facility] [address] [id number] [place] [address] May, [facility] [place] [facility] [address] [id number] [place] [address] May, [facility] [place] [facility] [address] [id number] [place] [address] May, [facility] [place] [facility] [address] [id number] [place] [address] May, [facility] [place] [facility] [address] [id number] [place] [address] May, [facility] [place] [facility] [address] [id number] [place] [address] May, [facility] [place] [facility] [address] [id number] [place] [address] May, [facility] [place] [facility] [address] [id number], [place] [address] 23 Apr, 2013 [facility] [place] [facility] [address] [id number], [place] [address] 21 Apr, 2013 [facility] [place] [facility] [address] [id number] [place] [address] 11 Apr, 2013 [facility] [place] [facility] [address] [id number] [place] [address] 09 Apr, 2013 [facility] [place] [facility] [address] [id number] [place] [address] 15 Mar, 2013 [facility] [place] [facility] [address] [id number] [place] [address] 14 Mar, 2013 [facility] [address] [id number] [place] [address] Mar, [facility] [address] [id number] [place] [address] Jan, [facility] [address] [id number] [place] [address] Jan, [facility] [address] [id number] [place] [address] Jan, [facility] [address] [id number] [place] [address] Jan, [facility] [address] [id number] [place] [address] December, [facility] [address] [id number] [place] [address] Nov, [facility] [address] [id number] [place] [address] Nov, [facility] [address] [id number] [place] [address] Sep, [facility] [address] [id number] [place] [address] Sep, [facility] [address] [id number] [place] [address] Sep, [facility] [address] [id number] [place] [address] Aug, [facility] [place] [facility] [address] [id number] [place] [address] Aug, [facility] [place] [facility] [address] [id number] [place] [address] Aug, [facility] [place] [facility] [address] [id number] [place] [address] Aug, [facility] [place] [facility] [address] [id number] [place] [address] Aug, [facility] [place] [facility] [address] [id number] [place] [address] Aug, [facility] [place] [facility] [address] [id number] [place] [address] Aug, [facility] [place] [facility] [address] [id number] [place] [address] Jul, [facility] [place] [facility] [address] [id number] [place] [address] Jul, [facility] [place] [facility] [address] [id number] [place] [address] Jun, [facility] [place] [facility] [address] [id number] [place] [address] Jun, [facility] [place] [facility] [address] [id number] [place] [address] May, [facility] [place] [facility] [address] [id number] [place] [address] May, [facility] [place] [facility] [address] [id number] [place] [address] May, [facility] [place] [facility] [address] [id number], [place] [address] May, [facility] [place] [facility] [address] [id number], [place] [address] 26 Apr, 2012 [facility] [place] [facility] [address] [id number] [place] [address] 24 Apr, 2012 [facility] [place] [facility] [address] [id number] [place] [address] 21 Apr, 2012 [facility] [place] [facility] [address] [id number] [place] [address] 20 Apr, 2012 [facility] [place] [facility] [address] [id number] [place] [address] 20 Apr, 2012 [facility] [address] [id number] [place] [address] 19 Apr, 2012 [facility] [place] [facility] [address] [id number] [place] [address] Apr, [facility] [place] [facility] [address] [id number] [place] [address] Mar, [facility] [place] [facility] [address] [id number] [place] [address] December, [facility] [place] [facility] [address] [id number] [place] [address] December, [facility] [place] [facility] [address] [id number] [place] [address] December, [facility] [address] [id number] [place] [address] Sep, [facility] [place] [facility] [address] [id number] [place] [address] Sep, [facility] [place] [facility] [address] [id number] [place] [address] Aug, [facility] [place] [facility] [address] [id number] [place] [address] Aug, [facility] [place] [facility] [address] [id number] [place] [address] Aug, [facility] [place] [facility] [address] [id number] [place] [address] Jun, [facility] [place] [facility] [address] [id number] [place] [address] Jun, [facility] [place] [facility] [address] [id number] [place] [address] Jun, [facility] [place] [facility] [address] [id number] [place] [address] Jun, [facility] [address] [facility] [id number] [place] [address] Mar, [facility] [address] [facility] [id number], [place] [address] Jan, [facility] [address] [facility] [id number] [place] [id number] December, IMMUNIZATIONS No Known Immunizations SOCIAL HISTORY [...]
--- OUTSIDE RECORDS SUMMARY | 2019-03-05 10:54 | XMS REPORT ---
Author Author PAGEMARSTORRES Organization [facility] Address [address] [place] [address] Care Team Providers Care Outer Diameter Technician Name Role Phone ABELTORRES Hollis Unavailable PROBLEMS Type Condition ICD9-CM Code ONG29-NG Code Onset Dates Condition Status SNOMED Code Problem Type 2 diabetes mellitus with diabetic peripheral angiopathy without gangrene, without long-term current use of insulin E11.51 Active 007232742 Problem Controlled restless leg syndrome G25.81 Active 76743887 Problem Benign essential HTN I10 Active 3005958 Problem OAB (overactive bladder) N32.81 Active 986464798 Problem Body mass index (BMI) of 40.0-44.9 in adult Z68.41 Active 869286154 Problem GERD (gastroesophageal reflux disease) K21.9 Active 173460483 Problem Degenerative arthritis of knee M17.9 Active 929698730 Problem Morbid (severe) obesity due to excess calories E66.01 Active 096068631 Problem Mild single current episode of major depressive disorder F32.0 Active 87976712 ALLERGIES No Information ENCOUNTERS Encounter Location Date Diagnosis [facility] [id number] [place] [address] May, [facility] [id number] [place] [address] Mar, Degenerative arthritis of knee M17.9 [facility] [id number] [place] [address] Mar, Type 2 diabetes mellitus with diabetic peripheral angiopathy without gangrene, without long-term current use of insulin E11.51 ; Benign essential HTN I10 ; Degenerative arthritis of knee M17.9 and Mild single current episode of major depressive disorder F32.0 [facility] [id number] [place] [address] Feb, [place] [address] [address] Feb, Degenerative arthritis of knee M17.9 [place] [id number] [place] [address] Feb, [place] [id number] [place] [address] Jan, Degenerative arthritis of knee M17.9 [place] [id number] [place] [address] Jan, Herpes zoster without complication B02.9 and BMI 40.0-44.9, adult Z68.41 [place] [id number] [place] [address] December, Degenerative arthritis of knee M17.9 [place] [id number] [place] [address] Nov, Benign essential HTN I10 ; Type [...] Z68.41 and GERD (gastroesophageal reflux disease) K21.9 [place] [address] [address] Nov, [place] [id number] [place] [address] Oct, Degenerative arthritis of knee M17.9 [place] [id number] [place] [address] Oct, [place] [id number] [address] Oct, Type 2 diabetes mellitus with diabetic peripheral angiopathy without gangrene, without long-term current use of insulin E11.51 and Controlled substance agreement signed Z79.899 [place] [id number] [place] [address] Oct, Degenerative arthritis of knee M17.9 [place] [id number] [place] [address] Sep, Type 2 diabetes mellitus with diabetic peripheral angiopathy without gangrene, without long-term current use of insulin E11.51 ; Benign essential HTN I10 ; BMI 40.0-44.9, adult Z68.41 ; Mild single current episode of major depressive disorder F32.0 ; OAB (overactive bladder) N32.81 ; Degenerative arthritis of knee M17.9 and GERD (gastroesophageal reflux disease) K21.9 [place] [address] [address] Aug, Joint pain and swelling due to Lyme disease A69.20 [place] [address] [address] Jun, [address] [address] May, 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 ; Benign essential HTN I10 ; 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 ; Body mass index (BMI) of 40.0-44.9 in adult Z68.41 and Morbid (severe) obesity due to excess calories E66.01 [place] [id number] [place] [address] May, Encounter for immunization Z23 [address] [address] May, 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 [place] [id number] [place] [address] Mar, Mild single current episode of major depressive disorder F32.0 [place] [id number] [place] [address] Mar, Joint pain and swelling due to Lyme disease A69.20 [place] [id number] [place] [address] Feb, Izzy infection B37.9 [place] [id number] [place] [address] Jan, Insect bite (nonvenomous) of abdominal wall, initial encounter S30.861A and Joint pain and swelling due to Lyme disease A69.20 [place] [id number] [place] [address] Jan, [address] [address] 16 Sep, 2016 Mild single current episode of major depressive disorder F32.0 and 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 [place] [id number] [place] [address] Sep, Controlled restless leg syndrome G25.81 and Cramp of both lower extremities R25.2 [place] [id number] [place] [address] Aug, 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 ; Controlled restless leg syndrome G25.81 ; SI (stress incontinence), female N39.3 ; Benign essential HTN I10 ; 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 ; GERD (gastroesophageal reflux disease) K21.9 ; Screening cholesterol level Z13.220 and Mild single current episode of major depressive disorder F32.0 [place] [id number] [place] [address] Aug, [place] [id number] [place] [address] May, [place] [id number] [place] [address] May, Encounter for immunization Z23 [facility] [address] [address] Apr, [facility] [id number] [place] [address] Apr, [place] [id number] [place] [address] Apr, SAMANTHA (secretory otitis media), right H65.91 ; 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 ; Controlled restless leg syndrome G25.81 ; Edema extremities R60.0 ; SI (stress incontinence), female N39.3 ; Benign essential HTN I10 ; Degenerative arthritis of knee M17.9 and Major depressive disorder with single episode, remission status unspecified F32.9 [place] [id number] [place] [address] Apr, OME (otitis media with effusion), right H65.91 [place] [id number] [place] [address] Mar, [place] [id number] [place] [address] Mar, 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 ; Controlled restless leg syndrome G25.81 ; SI (stress incontinence), female N39.3 ; Benign essential HTN I10 ; GERD (gastroesophageal reflux disease) K21.9 ; Knee pain M25.569 and Major depressive disorder with single episode, remission status unspecified F32.9 [place] [address] [address] Mar, [place] [id number] [place] [address] Mar, [place] [id number] [place] [address] Jan, Pre-op exam Z01.818 [place] [id number] [place] [address] Oct, Urinary tract infection N39.0 ; Benign essential HTN I10 ; Controlled restless leg syndrome G25.81 ; Edema extremities R60.0 ; Degenerative arthritis of knee M17.9 and GERD (gastroesophageal reflux disease) K21.9 [place] [address] [address] Oct, Izzy albicans infection B37.9 [place] [id number] [place] [address] Sep, [place] [id number] [place] [address] Sep, UTI (urinary tract infection) N39.0 ; Benign essential HTN I10 ; 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 ; Controlled restless leg syndrome G25.81 ; Edema extremities R60.0 ; SI (stress incontinence), female N39.3 and 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 [place] [address] [address] Sep, UTI (urinary tract infection) N39.0 [place] [address] [place] [address] Aug, Pre-op evaluation Z01.818 [place] [address] [address] Aug, [place] [id number] [place] [address] Aug, [place] [address] [place] [address] Jul, Right hip pain M25.551 ; 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 and Knee pain M25.569 [place] [address] [address] Jul, [place] [id number] [place] [address] Jun, Knee pain M25.569 ; 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 and Degenerative arthritis of knee M17.9 [place] [id number] [place] [address] Jun, [place] [id number] [place] [address] Apr, Diabetes mellitus 250.00 ; Influenza vaccine administered V04.81 ; Incontinence 788.30 ; Restless legs syndrome 333.94 ; Sciatica 724.3 ; Essential hypertension, benign 401.1 ; Edema 782.3 and Depression (emotion) 311 [place] [address] [address] Mar, Pain in joint, lower leg 719.46 and Sciatica 724.3 [place] [address] [address] Mar, [place] [id number] [place] [address] Feb, Pain in joint, site unspecified 719.40 ; Other urinary incontinence 788.39 ; Pain in joint, lower leg 719.46 ; Edema 782.3 ; Sciatica 724.3 ; Essential hypertension, benign 401.1 ; Depression 311 ; Diabetes mellitus 250.00 ; Incontinence 788.30 and Restless legs syndrome 333.94 [place] [id number] [place] [address] Feb, [place] [id number] [place] [address] Nov, [place] [address] [address] Nov, [place] [id number] [place] [address] Oct, [place] [address] [address] Oct, [facility] [place] [facility] [address] [id number] [place] [address] Aug, [facility] [place] [facility] [address] [id number] [place] [address] Aug, [facility] [place] [facility] [address] [id number] [place] [address] Aug, [facility] [place] [facility] [address] [id number] [place] [address] Aug, [facility] [place] [facility] [address] [id number] [place] [address] Aug, [facility] [place] [facility] [address] [id number] [place] [address] Aug, [facility] [place] [facility] [address] [id number] [place] [address] Jun, [facility] [place] [facility] [address] [id number] [address] Jun, [facility] [place] [facility] [address] [id number] [address] Jun, [facility] [place] [facility] [address] [id number] [place] [address] Jun, [facility] [place] [facility] [address] [id number] [address] Jun, [facility] [place] [facility] [address] [id number] [address] Jun, [facility] [place] [facility] [address] [id number] [place] [address] May, [facility] [place] [facility] [address] [id number] [place] [address] May, [facility] [place] [facility] [address] [id number] [address] May, [facility] [place] [facility] [address] [id number] [place] [address] May, [facility] [place] [facility] [address] [id number] [place] [address] Apr, [facility] [place] [facility] [address] [id number] [place] [address] Apr, [facility] [place] [facility] [address] [id number] [place] [address] Apr, [facility] [place] [facility] [address] [id number] [place] [address] Apr, [facility] [place] [facility] [address] [id number] [place] [address] Mar, [facility] [place] [facility] [address] [id number] [place] [address] Mar, [facility] [place] [facility] [address] [id number] [place] [address] Mar, [facility] [place] [facility] [address] [id number] [place] [address] Mar, [facility] [place] [facility] [address] [id number] [place] [address] Mar, [facility] [place] [facility] [address] [id number] [place] [address] Mar, [facility] [place] [facility] [address] [id number] [place] [address] Feb, [facility] [place] [facility] [address] [id number] [place] [address] Feb, [facility] [place] [facility] [address] [id number] [place] [address] Jan, [facility] [place] [facility] [address] [id number] [place] [address] Jan, [facility] [place] [facility] [address] [id number] [place] [address] Jan, [facility] [place] [facility] [address] [id number] [place] [address] Jan, [facility] [place] [facility] [address] [id number] [place] [address] December, [facility] [place] [facility] [address] [id number] [place] [address] December, [facility] [place] [facility] [address] [id number] [place] [address] December, [facility] [place] [facility] [address] [id number] [place] [address] December, [facility] [place] [facility] [address] [id number] [place] [address] December, [facility] [place] [facility] [address] [id number] [place] [address] December, [facility] [place] [facility] [address] [id number] [place] [address] December, [facility] [place] [facility] [address] [id number] [place] [address] December, [facility] [place] [facility] [address] [id number] [place] [address] Nov, [facility] [place] [facility] [address] [id number] [place] [address] Nov, [facility] [place] [facility] [address] [id number] [place] [address] Nov, [facility] [place] [facility] [address] [id number] [place] [address] Nov, [facility] [place] [facility] [address] [id number] [place] [address] Oct, [facility] [place] [facility] [address] [id number] [place] [address] Oct, [facility] [place] [facility] [address] [id number] [place] [address] Oct, [facility] [place] [facility] [address] [id number] [place] [address] Oct, [facility] [place] [facility] [address] [id number] [place] [address] Oct, [facility] [place] [facility] [address] [id number] [place] [address] Oct, [facility] [place] [facility] [address] [id number] [place] [address] Oct, [facility] [place] [facility] [address] [id number] [place] [address] Oct, [facility] [place] [facility] [address] [id number] [place] [address] Sep, [facility] [place] [facility] [address] [id number] [place] [address] Sep, [facility] [place] [facility] [address] [id number] [place] [address] Sep, [facility] [place] [facility] [address] [id number] [place] [address] Sep, [facility] [place] [facility] [address] [facility] [id number] [place] [address] Sep, [facility] [place] [facility] [address] [facility] [id number] [place] [address] Aug, [facility] [place] [facility] [address] [id number] [place] [address] Aug, [facility] [place] [facility] [address] [id number] [place] [address] Jul, [facility] [place] [facility] [address] [id number] [place] [address] Jul, [facility] [place] [facility] [address] [id number] [place] [address] Jul, [facility] [place] [facility] [address] [id number] [place] [address] Jul, [facility] [address] [id number] [place] [address] Jul, [facility] [place] [facility] [address] [id number] [place] [address] Jul, [facility] [address] [id number] [place] [address] Jul, [facility] [address] [id number] [place] [address] Jun, [facility] [place] [facility] [address] [id number] [place] [address] Jun, [facility] [address] [id number] [place] [address] Jun, [facility] [address] [id number] [place] [address] Jun, [facility] [address] [id number] [place] [address] Jun, [facility] [address] [id number] [place] [address] Jun, [facility] [place] [facility] [address] [id number] [place] [address] Jun, [facility] [place] [facility] [address] [id number] [place] [address] Jun, [facility] [place] [facility] [address] [id number] [place] [address] Jun, [facility] [place] [facility] [address] [id number] [place] [address] Jun, [facility] [place] [facility] [address] [id number] [place] [address] 18 Jun, 2013 [facility] [place] [facility] [address] [id number] [place] [address] Jun, [facility] [place] [facility] [address] [id number] [place] [address] Jun, [facility] [place] [facility] [address] [id number] [place] [address] May, [facility] [place] [facility] [address] [id number] [place] [address] May, [facility] [place] [facility] [address] [id number] [place] [address] May, [facility] [place] [facility] [address] [id number] [place] [address] May, [facility] [place] [facility] [address] [id number] [place] [address] May, [facility] [place] [facility] [address] [id number] [place] [address] May, [facility] [place] [facility] [address] [id number] [place] [address] May, [facility] [place] [facility] [address] [id number] [place] [address] May, [facility] [place] [facility] [address] [id number] [place] [address] May, [facility] [place] [facility] [address] [id number] [address] 23 Apr, 2013 [facility] [place] [facility] [address] [id number], [place] [address] 21 Apr, 2013 [facility] [place] [facility] [address] [id number] [place] [address] 11 Apr, 2013 [facility] [place] [facility] [address] [id number] [place] [address] 09 Apr, 2013 [facility] [place] [facility] [address] [id number] [place] [address] 15 Mar, 2013 [facility] [place] [facility] [address] [id number] [place] [address] 14 Mar, 2013 [facility] [address] [id number] [place] [address] Mar, [facility] [address] [id number] [place] [address] Jan, [facility] [address] [id number] [place] [address] Jan, [facility] [address] [id number] [place] [address] Jan, [facility] [address] [id number] [place] [address] Jan, [facility] [address] [id number] [place] [address] December, [facility] [address] [id number] [place] [address] Nov, [facility] [address] [id number] [place] [address] Nov, [facility] [address] [id number] [place] [address] Sep, [facility] [address] [id number] [place] [address] Sep, [facility] [address] [id number] [place] [address] Sep, [facility] [address] [id number] [place] [address] Aug, [facility] [place] [facility] [address] [id number] [place] [address] Aug, [facility] [place] [facility] [address] [id number] [place] [address] Aug, [facility] [place] [facility] [address] [id number] [place] [address] Aug, [facility] [place] [facility] [address] [id number] [place] [address] Aug, [facility] [place] [facility] [address] [id number] [place] [address] Aug, [facility] [place] [facility] [address] [id number] [place] [address] Aug, [facility] [place] [facility] [address] [id number] [place] [address] Jul, [facility] [place] [facility] [address] [id number] [place] [address] Jul, [facility] [place] [facility] [address] [id number] [place] [address] Jun, [facility] [place] [facility] [address] [id number] [place] [address] Jun, [facility] [place] [facility] [address] [id number] [place] [address] May, [facility] [place] [facility] [address] [id number] [place] [address] May, [facility] [place] [facility] [address] [id number] [place] [address] May, [facility] [place] [facility] [address] [id number] [address] May, [facility] [place] [facility] [address] [id number] [address] 26 Apr, 2012 [facility] [place] [facility] [address] [id number] [place] [address] 24 Apr, 2012 [facility] [place] [facility] [address] [id number] [place] [address] 21 Apr, 2012 [facility] [place] [facility] [address] [id number] [place] [address] 20 Apr, 2012 [facility] [place] [facility] [address] [id number] [place] [address] 20 Apr, 2012 [facility] [place] [facility] [address] [id number] [place] [address] 19 Apr, 2012 [facility] [place] [facility] [address] [id number] [place] [address] Apr, [facility] [place] [facility] [address] [id number] [place] [address] Mar, [facility] [place] [facility] [address] [id number] [place] [address] December, [facility] [place] [facility] [address] [id number] [place] [address] December, [facility] [place] [facility] [address] [id number] [place] [address] December, [facility] [place] [facility] [address] [id number] [place] [address] Sep, [facility] [place] [facility] [address] [id number] [place] [address] Sep, [facility] [place] [facility] [address] [id number] [place] [address] Aug, [facility] [place] [facility] [address] [id number] [place] [address] Aug, [facility] [place] [facility] [address] [id number] [place] [address] Aug, [facility] [place] [facility] [address] [id number] [place] [address] Jun, [facility] [place] [facility] [address] [id number] [place] [address] Jun, [facility] [place] [facility] [address] [id number] [place] [address] Jun, [facility] [place] [facility] [address] [id number] [place] [address] Jun, [facility] [address] [facility] [id number] [place] [address] Mar, [facility] [address] [facility] [id number] [address] Jan, [facility] [address] [facility] [id number] [place] [address] December, IMMUNIZATIONS No Known Immunizations SOCIAL HISTORY Never Assessed REASON FOR VISIT Controlled Med Refill 03/17 PLAN OF CARE VITAL SIGNS MEDICATIONS Medication Instructions Dosage Frequency Start Date End Date Duration Status Oxycodone-Acetaminophen 5-325 MG Orally 2 times a day 1 tablet as needed 12h Feb, 28 days Active RESULTS No Results PROCEDURES [...]
--- OUTSIDE RECORDS SUMMARY | 2019-03-05 10:55 | XMS REPORT ---
[facility] Address [address] [place] [address] Care Team Providers Care Subscription Crew Leader Name Role Phone [facility] Unavailable PROBLEMS Type Condition ICD9-CM Code MMO80-FI Code Onset Dates Condition Status SNOMED Code Problem Type 2 diabetes mellitus with diabetic peripheral angiopathy without gangrene, without long-term current use of insulin E11.51 Active 947668243 Problem Controlled restless leg syndrome G25.81 Active 06082073 Problem Benign essential HTN I10 Active 9060989 Problem OAB (overactive bladder) N32.81 Active 111390658 Problem Body mass index (BMI) of 40.0-44.9 in adult Z68.41 Active 524684190 Problem GERD (gastroesophageal reflux disease) K21.9 Active 908665266 Problem Degenerative arthritis of knee M17.9 Active 240759541 Problem Morbid (severe) obesity due to excess calories E66.01 Active 109486627 Problem Mild single current episode of major depressive disorder F32.0 Active 24746329 ALLERGIES Substance Reaction Event Type Date Status Codeine Unknown Non Drug Allergy Jan, Active ENCOUNTERS Encounter Location Date Diagnosis [place] [address], [place] [address] May, [facility] [address] [place] [address] Mar, Degenerative arthritis of knee M17.9 [place] [address] [place] [address] 13 Mar, 2018 Type 2 diabetes mellitus with diabetic peripheral angiopathy without gangrene, without long-term current use of insulin E11.51 ; Benign essential HTN I10 ; Degenerative arthritis of knee M17.9 and Mild single current episode of major depressive disorder F32.0 [place] [address], [place] [address] Feb, [place] [address] [place] [id number] [place] [address] Feb, Degenerative arthritis of knee M17.9 [facility] [address] [place] [id number] [place] [address] Feb, [place] [address] [place] [id number] [place] [address] Jan, Degenerative arthritis of knee M17.9 [place] [address] [place] [id number] [place] [address] Jan, Herpes zoster without complication B02.9 and BMI 40.0-44.9, adult Z68.41 [place] [address] [place] [id number] [place] [address] December, Degenerative arthritis of knee M17.9 [place] [address] [place] [id number] [place] [address] Nov, Benign essential HTN I10 ; Type [...] GERD (gastroesophageal reflux disease) K21.9 [place] [address] [place] [address] Nov, [place] [address] [place] [id number] [place] [address] Oct, Degenerative arthritis of knee M17.9 [place] [address] [place] [address] Oct, [place] [address] [place] [id number] [place] [address] Oct, Type 2 diabetes mellitus with diabetic peripheral angiopathy without gangrene, without long-term current use of insulin E11.51 and Controlled substance agreement signed Z79.[address] [place] [address] Oct, Degenerative arthritis of knee M17.9 [place] [id number] [place] [address] Sep, Type 2 diabetes mellitus with diabetic peripheral angiopathy without gangrene, without long-term current use of insulin E11.51 ; Benign essential HTN I10 ; BMI 40.0-44.9, adult Z68.41 ; Mild single current episode of major depressive disorder F32.0 ; OAB (overactive bladder) N32.81 ; Degenerative arthritis of knee M17.9 and GERD (gastroesophageal reflux disease) K21.9 [place] [id number] [place] [address] Aug, Joint pain and swelling due to Lyme disease A69.20 [place] [id number] [place] [address] Jun, [place] [id number] [place] [address] May, 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 ; Benign essential HTN I10 ; 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 ; Body mass index (BMI) of 40.0-44.9 in adult Z68.41 and Morbid (severe) obesity due to excess calories E66.01 [place] [id number] [place] [address] May, Encounter for immunization Z23 [address] [address] May, 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 E08.[address] [address] Mar, Mild single current episode of major depressive disorder F32.0 [place] [address] [place] [address] Mar, Joint pain and swelling due to Lyme disease A69.20 [place] [address] [place] [id number] [place] [address] Feb, Izzy infection B37.[address] [address] Jan, Insect bite (nonvenomous) of abdominal wall, initial encounter S30.861A and Joint pain and swelling due to Lyme disease A69.20 [place] [id number] [place] [address] Jan, [place] [id number] [place] [address] Sep, Mild single current episode of major depressive disorder F32.0 and 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 [place] [address] [place] [id number] [place] [address] Sep, Controlled restless leg syndrome G25.81 and Cramp of both lower extremities R25.[address] [place] [address] Aug, 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 ; Controlled restless leg syndrome G25.81 ; SI (stress incontinence), female N39.3 ; Benign essential HTN I10 ; 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 ; GERD (gastroesophageal reflux disease) K21.9 ; Screening cholesterol level Z13.220 and Mild single current episode of major depressive disorder F32.0 [place] [address] [place] [id number] [place] [address] Aug, [place] [address] [place] [id number] [place] [address] May, [address] [place] [address] May, Encounter for immunization Z23 [facility] [address] [place] [id number] [place] [address] Apr, [facility] [address] [place] [id number] [place] [address] Apr, [facility] [address] [place] [id number] [place] [address] Apr, SAMANTHA (secretory otitis media), right H65.91 ; 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 ; Controlled restless leg syndrome G25.81 ; Edema extremities R60.0 ; SI (stress incontinence), female N39.3 ; Benign essential HTN I10 ; Degenerative arthritis of knee M17.9 and Major depressive disorder with single episode, remission status unspecified F32.9 [place] [address] [place] [id number] [place] [address] Apr, OME (otitis media with effusion), right H65.91 [facility] [address] [place] [id number] [place] [address] Mar, [facility] [address] [place] [id number] [place] [address] Mar, 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 ; Controlled restless leg syndrome G25.81 ; SI (stress incontinence), female N39.3 ; Benign essential HTN I10 ; GERD (gastroesophageal reflux disease) K21.9 ; Knee pain M25.569 and Major depressive disorder with single episode, remission status unspecified F32.9 [facility] [address] [place] [address] Mar, [facility] [address] [place] [id number] [place] [address] Mar, [facility] [address] [place] [address] Jan, Pre-op exam Z01.818 [place] [address], [place] [address] 11 Oct, 2015 Urinary tract infection N39.0 ; Benign essential HTN I10 ; Controlled restless leg syndrome G25.81 ; Edema extremities R60.0 ; Degenerative arthritis of knee M17.9 and GERD (gastroesophageal reflux disease) K21.9 [place] [address], [place] [address] Oct, Izzy albicans infection B37.9 [place] [address] [place] [id number] [place] [address] Sep, [place] [address] [place] [id number] [place] [address] 26 Sep, 2015 UTI (urinary tract infection) N39.0 ; Benign essential HTN I10 ; 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 ; Controlled restless leg syndrome G25.81 ; Edema extremities R60.0 ; SI (stress incontinence), female N39.3 and 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 [place] [address] [place] [address] 12 Sep, 2015 UTI (urinary tract infection) N39.0 [place] [address], [place] [address] Aug, Pre-op evaluation Z01.818 [place] [address] [place] [address] Aug, [place] [address] [place] [id number], [place] [address] Aug, [place] [address] [place] [id number] [place] [address] Jul, Right hip pain M25.551 ; 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 and Knee pain M25.569 [place] [address] [place] [address] Jul, [place] [address] [place] [id number] [place] [address] Jun, Knee pain M25.569 ; 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 and Degenerative arthritis of knee M17.9 [place] [address] [place] [id number] [place] [address] Jun, [place] [address] [address] Apr, Diabetes mellitus 250.00 ; Influenza vaccine administered V04.81 ; Incontinence 788.30 ; Restless legs syndrome 333.94 ; Sciatica 724.3 ; Essential hypertension, benign 401.1 ; Edema 782.3 and Depression (emotion) 311 [place] [address] [place] [id number] [place] [address] Mar, Pain in joint, lower leg 719.46 and Sciatica 724.3 [place] [address] [place] [id number] [place] [address] Mar, [place] [address] [place] [id number] [place] [address] Feb, Pain in joint, site unspecified 719.40 ; Other urinary incontinence 788.39 ; Pain in joint, lower leg 719.46 ; Edema 782.3 ; Sciatica 724.3 ; Essential hypertension, benign 401.1 ; Depression 311 ; Diabetes mellitus 250.00 ; Incontinence 788.30 and Restless legs syndrome 333.94 [place] [address] [place] [id number] [place] [address] Feb, [place] [address] [place] [id number] [place] [address] Nov, [place] [address] [place] [id number] [place] [address] Nov, [place] [address] [place] [id number] [place] [address] Oct, [facility] [place] [facility] [address] [id number] [place] [address] Oct, [facility] [place] [facility] [address] [id number] [place] [address] Aug, [facility] [place] [facility] [address] [id number] [place] [address] Aug, [facility] [place] [facility] [address] [id number] [place] [address] Aug, [facility] [place] [facility] [address] [id number] [place] [address] Aug, [facility] [place] [facility] [address] [id number] [place] [address] Aug, [facility] [place] [facility] [address] [id number] [place] [address] Aug, [facility] [place] [facility] [address] [id number] [place] [address] Jun, [facility] [place] [facility] [address] [id number] [place] [address] Jun, [facility] [place] [facility] [address] [id number] [place] [address] Jun, [facility] [place] [facility] [address] [id number] [place] [address] Jun, [facility] [place] [facility] [address] [id number] [place] [address] Jun, [facility] [place] [facility] [address] [id number] [place] [address] Jun, [facility] [place] [facility] [address] [id number] [place] [address] May, [facility] [place] [facility] [address] [id number] [place] [address] May, [facility] [place] [facility] [address] [id number] [place] [address] May, [facility] [place] [facility] [address] [id number] [place] [address] May, [facility] [place] [facility] [address] [id number] [place] [address] Apr, [facility] [place] [facility] [address] [id number] [place] [address] Apr, [facility] [place] [facility] [address] [id number] [place] [address] Apr, [facility] [place] [facility] [address] [id number] [place] [address] Apr, [facility] [place] [facility] [address] [id number] [place] [address] Mar, [facility] [place] [facility] [address] [id number] [place] [address] Mar, [facility] [place] [facility] [address] [id number] [place] [address] Mar, [facility] [place] [facility] [address] [id number] [place] [address] Mar, [facility] [place] [facility] [address] [id number] [place] [address] Mar, [facility] [place] [facility] [address] [id number] [place] [address] Mar, [facility] [place] [facility] [address] [id number], [place] [address] Feb, [facility] [place] [facility] [address] [id number] [place] [address] Feb, [facility] [place] [facility] [address] [id number] [place] [address] Jan, [facility] [place] [facility] [address] [id number] [place] [address] Jan, [facility] [place] [facility] [address] [id number] [place] [address] Jan, [facility] [address] [id number] [place] [address] Jan, [facility] [address] [id number] [place] [address] December, [facility] [address] [id number] [place] [address] December, [facility] [address] [id number] [place] [address] December, [facility] [address] [id number] [place] [address] December, [facility] [address] [id number] [place] [address] December, [facility] [address] [id number] [place] [address] December, [facility] [address] [id number] [place] [address] December, [facility] [address] [id number] [place] [address] December, [facility] [address] [id number] [place] [address] Nov, [facility] [place] [facility] [address] [id number] [place] [address] Nov, [facility] [place] [facility] [address] [id number] [place] [address] Nov, [facility] [place] [facility] [address] [id number] [place] [address] Nov, [facility] [place] [facility] [address] [id number] [place] [address] Oct, [facility] [place] [facility] [address] [id number] [place] [address] Oct, [facility] [place] [facility] [address] [id number] [place] [address] Oct, [facility] [place] [facility] [address] [id number] [place] [address] Oct, [facility] [place] [facility] [address] [id number] [place] [address] Oct, [facility] [place] [facility] [address] [id number] [place] [address] Oct, [facility] [place] [facility] [address] [id number] [place] [address] Oct, [facility] [place] [facility] [address] [id number] [place] [address] Oct, [facility] [place] [facility] [address] [id number] [place] [address] Sep, [facility] [place] [facility] [address] [id number] [place] [address] Sep, [facility] [place] [facility] [address] [id number] [place] [address] Sep, [facility] [place] [facility] [address] [id number] [place] [address] Sep, [facility] [place] [facility] [address] [id number] [place] [address] Sep, [facility] [place] [facility] [address] [id number], [place] [address] Aug, [facility] [place] [facility] [address] [id number] [place] [address] Aug, [facility] [place] [facility] [address] [id number] [place] [address] Jul, [facility] [place] [facility] [address] [id number] [place] [address] Jul, [facility] [place] [facility] [address] [id number] [place] [address] 06 Jul, 2013 [facility] [address] [id number] [place] [address] Jul, [facility] [place] [facility] [address] [id number] [place] [address] Jul, [facility] [address] [id number] [place] [address] Jul, [facility] [place] [facility] [address] [id number] [place] [address] Jul, [facility] [address] [id number] [place] [address] Jun, [facility] [place] [facility] [address] [id number] [place] [address] Jun, [facility] [address] [id number] [place] [address] Jun, [facility] [place] [facility] [address] [id number] [place] [address] Jun, [facility] [place] [facility] [address] [id number] [place] [address] Jun, [facility] [address] [facility] [id number] [place] [address] Jun, [facility] [address] [id number] [place] [address] Jun, [facility] [place] [facility] [address] [id number], [place] [address] Jun, [facility] [place] [facility] [address] [id number] [place] [address] Jun, [facility] [place] [facility] [address] [id number] [place] [address] Jun, [facility] [place] [facility] [address] [id number], [place] [address] 18 Jun, 2013 [facility] [place] [facility] [address] [id number] [place] [address] Jun, [facility] [place] [facility] [address] [id number] [place] [address] Jun, [facility] [place] [facility] [address] [id number] [place] [address] May, [facility] [place] [facility] [address] [id number] [place] [address] May, [facility] [place] [facility] [address] [id number] [place] [address] May, [facility] [place] [facility] [address] [id number] [place] [address] May, [facility] [place] [facility] [address] [id number] [place] [address] May, [facility] [place] [facility] [address] [id number] [place] [address] May, [facility] [place] [facility] [address] [id number] [place] [address] May, [facility] [place] [facility] [address] [id number] [place] [address] May, [facility] [place] [facility] [address] [id number] [place] [address] May, [facility] [place] [facility] [address] [id number] [place] [address] 23 Apr, 2013 [facility] [place] [facility] [address] [id number] [place] [address] 21 Apr, 2013 [facility] [place] [facility] [address] [id number] [place] [address] 11 Apr, 2013 [facility] [place] [facility] [address] [id number] [place] [address] 09 Apr, 2013 [facility] [place] [facility] [address] [id number] [place] [address] 15 Mar, 2013 [facility] [address] [id number] [place] [address] Mar, [facility] [place] [facility] [address] [id number] [place] [address] Mar, [facility] [place] [facility] [address] [id number] [place] [address] Jan, [facility] [place] [facility] [address] [id number] [place] [address] Jan, [facility] [place] [facility] [address] [id number] [place] [address] Jan, [facility] [place] [facility] [address] [id number] [place] [address] Jan, [facility] [place] [facility] [address] [id number] [place] [address] December, [facility] [place] [facility] [address] [id number] [place] [address] Nov, [facility] [place] [facility] [address] [id number] [place] [address] Nov, [facility] [place] [facility] [address] [id number] [place] [address] Sep, [facility] [place] [facility] [address] [id number] [place] [address] Sep, [facility] [place] [facility] [address] [id number] [place] [address] Sep, [facility] [place] [facility] [address] [id number] [place] [address] Aug, [facility] [place] [facility] [address] [id number] [place] [address] Aug, [facility] [place] [facility] [address] [id number] [place] [address] Aug, [facility] [place] [facility] [address] [id number] [place] [address] 16 Aug, 2012 [facility] [address] [id number] [place] [address] Aug, [facility] [place] [facility] [address] [id number] [place] [address] Aug, [facility] [place] [facility] [address] [id number] [place] [address] Aug, [facility] [place] [facility] [address] [id number] [place] [address] Jul, [facility] [place] [facility] [address] [id number] [place] [address] Jul, [facility] [place] [facility] [address] [id number] [place] [address] Jun, [facility] [place] [facility] [address] [id number] [place] [address] Jun, [facility] [address] [id number] [place] [address] May, [facility] [place] [facility] [address] [id number] [place] [address] May, [facility] [place] [facility] [address] [id number] [place] [address] May, [facility] [place] [facility] [address] [id number] [place] [address] May, [facility] [place] [facility] [address] [id number] [place] [address] 26 Apr, 2012 [facility] [place] [facility] [address] [id number] [place] [address] 24 Apr, 2012 [facility] [place] [facility] [address] [id number] [place] [address] 21 Apr, 2012 [facility] [place] [facility] [address] [id number] [place] [address] Apr, [facility] [address] [id number] [place] [address] 20 Apr, 2012 [facility] [place] [facility] [address] [id number] [place] [address] Apr, [facility] [place] [facility] [address] [id number] [place] [address] Apr, [facility] [place] [facility] [address] [id number] [place] [address] Mar, [facility] [place] [facility] [address] [id number] [place] [address] December, [facility] [place] [facility] [address] [id number] [place] [address] December, [facility] [place] [facility] [address] [id number] [place] [address] December, [facility] [place] [facility] [address] [id number] [place] [address] Sep, [facility] [place] [facility] [address] [id number] [place] [address] Sep, [facility] [place] [facility] [address] [id number] [place] [address] Aug, [facility] [place] [facility] [address] [id number] [place] [address] Aug, [facility] [place] [facility] [address] [id number] [place] [address] Aug, [facility] [place] [facility] [address] [id number] [place] [address] Jun, [facility] [place] [facility] [address] [id number] [place] [address] Jun, [facility] [place] [facility] [address] [id number] [place] [address] Jun, [facility] [place] [facility] [address] [facility] [id number] [place] [address] Jun, [facility] [address] [facility] [facility] [id number], [place] [address] Mar, [facility] [address] [facility] [id number], [place] [address] Jan, [facility] [address] [facility] [id number], [place] [address] December, IMMUNIZATIONS No Known Immunizations SOCIAL HISTORY Never Assessed REASON FOR VISIT Several Bites-DARIEL Nuñez PLAN OF CARE Activity Details Follow Up if not improving with PCP or reg follow up Reason: VITAL SIGNS Height 64 in 2018-02-13 Weight 244.7 lbs 2018-02-13 Temperature 97.5 degrees Fahrenheit 2018-02-13 Heart Rate 72 bpm 2018-02-13 Respiratory Rate 18 2018-02-13 BMI 42.00 kg/m2 2018-02-13 Blood pressure systolic 126 mmHg 2018-02-13 Blood pressure diastolic 88 mmHg 2018-02-13 MEDICATIONS Medication Instructions Dosage Frequency Start Date End Date Duration Status MetFORMIN HCl ER 500 mg Orally 2 times a day TAKE ONE TABLET BY MOUTH TWICE DAILY 12h Active Quinapril HCl 20 MG TAKE ONE TABLET BY MOUTH ONCE DAILY Active Venlafaxine HCl ER 75 MG TAKE ONE CAPSULE BY MOUTH DAILY WITH FOOD 30 Active Acyclovir 800 MG Orally 5 times per day 1 tablet Jan, 10 day(s) Active Oxybutynin Chloride 5 mg Orally Twice a day TAKE ONE TABLET 12h Active Omeprazole 40 mg Orally Once a day 1 capsule 24h Nov, 90 days Active Oxycodone-Acetaminophen 5-325 MG Orally 2 times a day 1 tablet as needed 12h December, 28 days Active RESULTS No Results PROCEDURES Procedure Date Ordered Result Body Site [facility] VISIT ESTABLISHED PATIENT February 13, 2018 INSTRUCTIONS MEDICATIONS ADMINISTERED No Known Medications MEDICAL (GENERAL) HISTORY Type Description Date Medical History Hypertension Medical History Neuropathy Medical History Diabetes Medical History Restless leg syndrome Surgical History carpal tunnel left hand. Surgical History Right Knee Surgery Surgical History Left Knee SOA 03/21/16 Hospitalization History Left Knee SOA 03/21/16
--- OUTSIDE RECORDS SUMMARY | 2019-03-05 10:56 | XMS REPORT ---
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 Name Role Phone TORRES ABEL Unavailable PROBLEMS Type Condition ICD9-CM Code OTT86-KT Code Onset Dates Condition Status SNOMED Code Problem Type 2 diabetes mellitus with diabetic peripheral angiopathy without gangrene, without long-term current use of insulin E11.51 Active 617286973 Problem Controlled restless leg syndrome G25.81 Active 21812264 Problem Benign essential HTN I10 Active 0798579 Problem OAB (overactive bladder) N32.81 Active 284063559 Problem Body mass index (BMI) of 40.0-44.9 in adult Z68.41 Active 677674997 Problem GERD (gastroesophageal reflux disease) K21.9 Active 656562229 Problem Degenerative arthritis of knee M17.9 Active 448513399 Problem Morbid (severe) obesity due to excess calories E66.01 Active 631778276 Problem Mild single current episode of major depressive disorder F32.0 Active 49160839 ALLERGIES No Information ENCOUNTERS Encounter Location Date Diagnosis [facility] [id number] [place] [address] May, [facility] [id number] [place] [address] Mar, Type 2 diabetes mellitus with diabetic peripheral angiopathy without gangrene, without long-term current use of insulin E11.51 ; Benign essential HTN I10 ; Degenerative arthritis of knee M17.9 and Mild single current episode of major depressive disorder F32.0 [facility] [id number] [address] Feb, [facility] [id number] [place] [address] Feb, Degenerative arthritis of knee M17.9 [place] [id number] [address] Feb, [place] [address] [address] Jan, Degenerative arthritis of knee M17.9 [place] [address] [place] [address] Jan, Herpes zoster without complication B02.9 and BMI 40.0-44.9, adult Z68.41 [place] [address] [place] [address] December, Degenerative arthritis of knee M17.9 [place] [address] [place] [address] Nov, Benign essential HTN I10 ; Type [...] Z68.41 and GERD (gastroesophageal reflux disease) K21.9 [place] [address] [address] Nov, [place] [id number] [place] [address] Oct, Degenerative arthritis of knee M17.9 [place] [address] [address] Oct, [place] [id number] [place] [address] Oct, Type 2 diabetes mellitus with diabetic peripheral angiopathy without gangrene, without long-term current use of insulin E11.51 and Controlled substance agreement signed Z79.8[address] [facility] [place] [facility] [id number] [place] [address] Oct, Degenerative arthritis of knee M17.[address] [address] Sep, Type 2 diabetes mellitus with diabetic peripheral angiopathy without gangrene, without long-term current use of insulin E11.51 ; Benign essential HTN I10 ; BMI 40.0-44.9, adult Z68.41 ; Mild single current episode of major depressive disorder F32.0 ; OAB (overactive bladder) N32.81 ; Degenerative arthritis of knee M17.9 and GERD (gastroesophageal reflux disease) K21.[address] [address] Aug, Joint pain and swelling due to Lyme disease A69.[address] [address] Jun, [address] [address] May, 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 ; Benign essential HTN I10 ; 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 ; Body mass index (BMI) of 40.0-44.9 in adult Z68.41 and Morbid (severe) obesity due to excess calories E66.01 [place] [id number] [place] [address] May, Encounter for immunization Z23 [address] [address] May, 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 E08.[address] [address] Mar, Mild single current episode of major depressive disorder F32.0 [id number] [place] [address] Mar, Joint pain and swelling due to Lyme disease A69.20 [place] [id number] [place] [address] Feb, Izzy infection B37.[address] [address] Jan, Insect bite (nonvenomous) of abdominal wall, initial encounter S30.861A and Joint pain and swelling due to Lyme disease A69.20 [place] [address] [address] Jan, [place] [address] [address] Sep, Mild single current episode of major depressive disorder F32.0 and 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 [place] [id number] [place] [address] 13 Sep, 2016 Controlled restless leg syndrome G25.81 and Cramp of both lower extremities R25.2 [place] [id number] [place] [address] Aug, 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 ; Controlled restless leg syndrome G25.81 ; SI (stress incontinence), female N39.3 ; Benign essential HTN I10 ; 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 ; GERD (gastroesophageal reflux disease) K21.9 ; Screening cholesterol level Z13.220 and Mild single current episode of major depressive disorder F32.0 [place] [id number] [place] [address] Aug, [place] [id number] [place] [address] May, [place] [id number] [place] [address] May, Encounter for immunization Z23 [place] [id number] [place] [address] Apr, [place] [address] [address] Apr, [place] [id number] [place] [address] Apr, SAMANTHA (secretory otitis media), right H65.91 ; 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 ; Controlled restless leg syndrome G25.81 ; Edema extremities R60.0 ; SI (stress incontinence), female N39.3 ; Benign essential HTN I10 ; Degenerative arthritis of knee M17.9 and Major depressive disorder with single episode, remission status unspecified F32.9 [place] [id number] [place] [address] Apr, OME (otitis media with effusion), right H65.91 [place] [id number] [place] [address] Mar, [place] [id number] [place] [address] Mar, 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 ; Controlled restless leg syndrome G25.81 ; SI (stress incontinence), female N39.3 ; Benign essential HTN I10 ; GERD (gastroesophageal reflux disease) K21.9 ; Knee pain M25.569 and Major depressive disorder with single episode, remission status unspecified F32.9 [place] [address] [address] Mar, [place] [id number] [place] [address] Mar, [place] [id number] [place] [address] Jan, Pre-op exam Z01.818 [place] [address] [place] [address] Oct, Urinary tract infection N39.0 ; Benign essential HTN I10 ; Controlled restless leg syndrome G25.81 ; Edema extremities R60.0 ; Degenerative arthritis of knee M17.9 and GERD (gastroesophageal reflux disease) K21.9 [place] [id number] [place] [address] Oct, Izzy albicans infection B37.9 [place] [id number] [place] [address] Sep, [place] [id number] [place] [address] Sep, UTI (urinary tract infection) N39.0 ; Benign essential HTN I10 ; 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 ; Controlled restless leg syndrome G25.81 ; Edema extremities R60.0 ; SI (stress incontinence), female N39.3 and 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 [place] [id number] [place] [address] Sep, UTI (urinary tract infection) N39.0 [place] [id number] [place] [address] Aug, Pre-op evaluation Z01.818 [place] [id number] [place] [address] Aug, [place] [id number] [place] [address] Aug, [place] [id number] [place] [address] Jul, Right hip pain M25.551 ; 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 and Knee pain M25.569 [place] [id number] [place] [address] Jul, [place] [id number] [place] [address] Jun, Knee pain M25.569 ; 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 and Degenerative arthritis of knee M17.9 [place] [id number] [place] [address] Jun, [place] [id number] [place] [address] Apr, Diabetes mellitus 250.00 ; Influenza vaccine administered V04.81 ; Incontinence 788.30 ; Restless legs syndrome 333.94 ; Sciatica 724.3 ; Essential hypertension, benign 401.1 ; Edema 782.3 and Depression (emotion) 311 [place] [id number] [place] [address] Mar, Pain in joint, lower leg 719.46 and Sciatica 724.3 [place] [address] [address] Mar, [place] [address] [address] Feb, Pain in joint, site unspecified 719.40 ; Other urinary incontinence 788.39 ; Pain in joint, lower leg 719.46 ; Edema 782.3 ; Sciatica 724.3 ; Essential hypertension, benign 401.1 ; Depression 311 ; Diabetes mellitus 250.00 ; Incontinence 788.30 and Restless legs syndrome 333.94 [place] [id number] [place] [address] Feb, [place] [id number] [place] [address] Nov, [place] [id number] [place] [address] Nov, [place] [address] [address] Oct, [place] [id number] [place] [address] Oct, [place] [address] [address] Aug, [facility] [place] [facility] [address] [id number] [place] [address] Aug, [facility] [place] [facility] [address] [id number] [place] [address] Aug, [facility] [place] [facility] [address] [id number] [place] [address] Aug, [facility] [place] [facility] [address] [id number] [place] [address] Aug, [facility] [place] [facility] [address] [id number] [place] [address] Aug, [facility] [place] [facility] [address] [id number] [place] [address] Jun, [facility] [place] [facility] [address] [id number] [place] [address] Jun, [facility] [place] [facility] [address] [id number] [address] Jun, [facility] [place] [facility] [address] [id number] [place] [address] Jun, [facility] [place] [facility] [address] [id number], [place] [address] Jun, [facility] [place] [facility] [address] [id number], [place] [address] Jun, [facility] [place] [facility] [address] [id number], [place] [address] May, [facility] [place] [facility] [address] [id number] [place] [address] May, [facility] [place] [facility] [address] [id number] [place] [address] May, [facility] [place] [facility] [address] [id number], [place] [address] May, [facility] [place] [facility] [address] [id number], [place] [address] Apr, [facility] [place] [facility] [address] [id number] [place] [address] Apr, [facility] [place] [facility] [address] [id number] [place] [address] Apr, [facility] [place] [facility] [address] [id number] [place] [address] Apr, [facility] [place] [facility] [address] [id number] [place] [address] Mar, [facility] [place] [facility] [address] [id number] [place] [address] Mar, [facility] [place] [facility] [address] [id number] [place] [address] Mar, [facility] [place] [facility] [address] [id number] [place] [address] Mar, [facility] [place] [facility] [address] [id number] [place] [address] Mar, [facility] [place] [facility] [address] [id number] [place] [address] Mar, [facility] [place] [facility] [address] [id number] [place] [address] Feb, [facility] [place] [facility] [address] [id number] [place] [address] Feb, [facility] [place] [facility] [address] [id number] [place] [address] Jan, [facility] [place] [facility] [address] [id number] [place] [address] Jan, [facility] [place] [facility] [address] [id number] [place] [address] Jan, [facility] [place] [facility] [address] [id number] [place] [address] Jan, [facility] [place] [facility] [address] [id number] [place] [address] December, [facility] [place] [facility] [address] [id number] [place] [address] December, [facility] [place] [facility] [address] [id number] [place] [address] December, [facility] [place] [facility] [address] [id number] [place] [address] December, [facility] [place] [facility] [address] [id number] [place] [address] December, [facility] [place] [facility] [address] [id number] [place] [address] December, [facility] [place] [facility] [address] [id number] [place] [address] December, [facility] [place] [facility] [address] [id number] [place] [address] December, [facility] [place] [facility] [address] [id number] [place] [address] Nov, [facility] [place] [facility] [address] [id number] [place] [address] Nov, [facility] [place] [facility] [address] [id number] [place] [address] Nov, [facility] [place] [facility] [address] [id number] [place] [address] Nov, [facility] [place] [facility] [address] [id number] [place] [address] Oct, [facility] [place] [facility] [address] [id number] [place] [address] Oct, [facility] [place] [facility] [address] [id number] [place] [address] Oct, [facility] [place] [facility] [address] [id number] [place] [address] Oct, [facility] [place] [facility] [address] [id number] [place] [address] Oct, [facility] [place] [facility] [address] [id number] [place] [address] Oct, [facility] [place] [facility] [address] [id number] [place] [address] Oct, [facility] [place] [facility] [address] [id number] [place] [address] Oct, [facility] [place] [facility] [address] [id number] [place] [address] Sep, [facility] [place] [facility] [address] [id number] [place] [address] Sep, [facility] [place] [facility] [address] [id number] [place] [address] Sep, [facility] [place] [facility] [address] [id number] [place] [address] Sep, [facility] [place] [facility] [address] [id number] [place] [address] Sep, [facility] [place] [facility] [address] [id number] [place] [address] Aug, [facility] [place] [facility] [address] [id number] [place] [address] Aug, [facility] [place] [facility] [address] [id number] [place] [address] Jul, [facility] [place] [facility] [address] [id number] [place] [address] Jul, [facility] [place] [facility] [address] [id number] [place] [address] Jul, [facility] [place] [facility] [address] [id number] [place] [address] Jul, [facility] [place] [facility] [address] [id number] [place] [address] Jul, [facility] [address] [id number] [place] [address] Jul, [facility] [address] [id number] [place] [address] Jul, [facility] [address] [id number] [place] [address] Jun, [facility] [address] [id number] [place] [address] Jun, [facility] [address] [id number] [place] [address] Jun, [facility] [address] [id number] [place] [address] Jun, [facility] [address] [id number] [place] [address] Jun, [facility] [address] [id number] [place] [address] Jun, [facility] [address] [id number] [place] [address] Jun, [facility] [address] [id number] [place] [address] Jun, [facility] [address] [id number] [place] [address] Jun, [facility] [address] [id number] [place] [address] Jun, [facility] [place] [facility] [address] [id number] [place] [address] Jun, [facility] [place] [facility] [address] [id number] [place] [address] Jun, [facility] [address] [id number] [place] [address] Jun, [facility] [place] [facility] [address] [id number] [place] [address] May, [facility] [place] [facility] [address] [id number] [place] [address] May, [facility] [place] [facility] [address] [id number] [place] [address] May, [facility] [place] [facility] [address] [id number] [place] [address] May, [facility] [place] [facility] [address] [id number] [place] [address] May, [facility] [place] [facility] [address] [id number] [place] [address] May, [facility] [place] [facility] [address] [id number] [place] [address] May, [facility] [place] [facility] [address] [id number], [place] [address] May, [facility] [place] [facility] [address] [id number] [place] [address] May, [facility] [place] [facility] [address] [id number], [place] [address] 23 Apr, 2013 [facility] [place] [facility] [address] [id number], [place] [address] 21 Apr, 2013 [facility] [place] [facility] [address] [id number], [place] [address] 11 Apr, 2013 [facility] [place] [facility] [address] [id number], [place] [address] 09 Apr, 2013 [facility] [place] [facility] [address] [id number], [place] [address] 15 Mar, 2013 [facility] [place] [facility] [address] [id number], [place] [address] 14 Mar, 2013 [facility] [place] [facility] [address] [id number], [place] [address] Mar, [facility] [address] [id number] [place] [address] Jan, [facility] [address] [id number] [place] [address] Jan, [facility] [address] [id number] [place] [address] Jan, [facility] [address] [id number] [place] [address] Jan, [facility] [address] [id number] [place] [address] December, [facility] [address] [id number] [place] [address] Nov, [facility] [address] [id number] [place] [address] Nov, [facility] [address] [id number] [place] [address] Sep, [facility] [address] [id number] [place] [address] Sep, [facility] [address] [facility] [id number] [place] [address] Sep, [facility] [address] [id number] [place] [address] Aug, [facility] [address] [id number] [address] Aug, [facility] [address] [id number] [place] [address] Aug, [facility] [address] [id number] [place] [address] Aug, [facility] [address] [id number], [place] [address] Aug, [facility] [place] [facility] [address] [id number] [place] [address] Aug, [facility] [place] [facility] [address] [id number] [place] [address] Aug, [facility] [place] [facility] [address] [id number] [place] [address] Jul, [facility] [place] [facility] [address] [id number] [place] [address] Jul, [facility] [place] [facility] [address] [id number] [place] [address] Jun, [facility] [place] [facility] [address] [id number] [place] [address] Jun, [facility] [place] [facility] [address] [id number] [place] [address] May, [facility] [place] [facility] [address] [id number] [place] [address] May, [facility] [place] [facility] [address] [id number] [place] [address] May, [facility] [place] [facility] [address] [id number] [place] [address] May, [facility] [place] [facility] [address] [id number] [place] [address] 26 Apr, 2012 [facility] [place] [facility] [address] [id number] [place] [address] 24 Apr, 2012 [facility] [place] [facility] [address] [id number] [place] [address] 21 Apr, 2012 [facility] [place] [facility] [address] [id number] [place] [address] 20 Apr, 2012 [facility] [place] [facility] [address] [id number] [place] [address] 20 Apr, 2012 [facility] [place] [facility] [address] [id number] [place] [address] Apr, [facility] [address] [id number] [place] [address] Apr, [facility] [place] [facility] [address] [id number] [place] [address] Mar, [facility] [place] [facility] [address] [id number] [place] [address] December, [facility] [place] [facility] [address] [id number] [place] [address] December, [facility] [address] [id number] [place] [address] December, [facility] [address] [id number] [place] [address] Sep, [facility] [address] [id number] [place] [address] Sep, [facility] [place] [facility] [address] [id number] [place] [address] Aug, [facility] [address] [id number] [place] [address] Aug, [facility] [place] [facility] [address] [id number] [place] [address] Aug, [facility] [address] [id number], [place] [address] Jun, [facility] [place] [facility] [address] [id number], [place] [address] Jun, [facility] [place] [facility] [address] [id number] [place] [address] Jun, [facility] [place] [facility] [address] [id number] [place] [address] Jun, [facility] [place] [facility] [address] [id number] [place] [address] Mar, [facility] [place] [facility] [address] [facility] [id number] [place] [address] Jan, [facility] [address] [facility] [id number], [place] [address] December, IMMUNIZATIONS No Known Immunizations SOCIAL HISTORY Never Assessed REASON FOR VISIT Controlled Med Refill 01/17 PLAN OF CARE VITAL SIGNS MEDICATIONS Medication [...]
--- OUTSIDE RECORDS SUMMARY | 2019-03-05 10:56 | XMS REPORT ---
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 Name Role Phone ABELTORRES Hollis Unavailable PROBLEMS Type Condition ICD9-CM Code [id number] Code Onset Dates Condition Status SNOMED Code Problem Type 2 diabetes mellitus with diabetic peripheral angiopathy without gangrene, without long-term current use of insulin E11.51 Active 701838384 Problem Controlled restless leg syndrome G25.81 Active 17206855 Problem Benign essential HTN I10 Active 7021219 Problem OAB (overactive bladder) N32.81 Active 561940255 Problem Body mass index (BMI) of 40.0-44.9 in adult Z68.41 Active 052037261 Problem GERD (gastroesophageal reflux disease) K21.9 Active 770526840 Problem Degenerative arthritis of knee M17.9 Active 970169723 Problem Morbid (severe) obesity due to excess calories E66.01 Active 416890218 Problem Mild single current episode of major depressive disorder F32.0 Active 89380074 ALLERGIES Substance Reaction Event Type Date Status Codeine Unknown Non Drug Allergy Nov, Active ENCOUNTERS Encounter Location Date Diagnosis [facility] [id number] [address] Mar, [facility] [id number] [address] Mar, [facility] [id number] [address] Feb, [facility] [id number] [address] Feb, Degenerative arthritis of knee M17.9 [facility] [id number] [address] Feb, [place] [address] [address] Jan, Degenerative arthritis of knee M17.9 [place] [id number] [place] [address] Jan, Herpes zoster without complication B02.9 and BMI 40.0-44.9, adult Z68.41 [place] [id number] [place] [address] December, Degenerative arthritis of knee M17.9 [place] [id number] [place] [address] Nov, Benign essential HTN I10 ; Type [...] Z68.41 and GERD (gastroesophageal reflux disease) K21.9 [place] [id number] [place] [address] Nov, [place] [id number] [place] [address] Oct, Degenerative arthritis of knee M17.9 [place] [id number] [place] [address] Oct, [place] [id number] [place] [address] Oct, Type 2 diabetes mellitus with diabetic peripheral angiopathy without gangrene, without long-term current use of insulin E11.51 and Controlled substance agreement signed Z79.899 [place] [id number] [place] [address] Oct, Degenerative arthritis of knee M17.9 [facility] [place] [id number] [place] [address] Sep, Type 2 diabetes mellitus with diabetic peripheral angiopathy without gangrene, without long-term current use of insulin E11.51 ; Benign essential HTN I10 ; BMI 40.0-44.9, adult Z68.41 ; Mild single current episode of major depressive disorder F32.0 ; OAB (overactive bladder) N32.81 ; Degenerative arthritis of knee M17.9 and GERD (gastroesophageal reflux disease) K21.[address] [address] Aug, Joint pain and swelling due to Lyme disease A69.[address] [address] Jun, [address] [address] May, 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 ; Benign essential HTN I10 ; 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 ; Body mass index (BMI) of 40.0-44.9 in adult Z68.41 and Morbid (severe) obesity due to excess calories E66.01 [id number] [place] [address] May, Encounter for immunization Z23 [address] [id number] [place] [address] May, 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 [id number] [place] [address] Mar, Mild single current episode of major depressive disorder F32.[address] [address] Mar, Joint pain and swelling due to Lyme disease A69.20 [id number] [place] [address] Feb, Izzy infection B37.9 [place] [id number] [place] [address] 23 Jan, 2017 Insect bite (nonvenomous) of abdominal wall, initial encounter S30.861A and Joint pain and swelling due to Lyme disease A69.20 [place] [id number] [place] [address] Jan, [place] [address] [address] 16 Sep, 2016 Mild single current episode of major depressive disorder F32.0 and 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 [id number] [place] [address] 13 Sep, 2016 Controlled restless leg syndrome G25.81 and Cramp of both lower extremities R25.2 [address] [id number] [place] [address] Aug, 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 ; Controlled restless leg syndrome G25.81 ; SI (stress incontinence), female N39.3 ; Benign essential HTN I10 ; 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 ; GERD (gastroesophageal reflux disease) K21.9 ; Screening cholesterol level Z13.220 and Mild single current episode of major depressive disorder F32.[address] [place] [address] Aug, [id number] [place] [address] May, [address] [id number] [place] [address] May, Encounter for immunization Z23 [address] [id number] [place] [address] Apr, [id number] [place] [address] Apr, [address] [id number] [place] [address] Apr, SAMANTHA (secretory otitis media), right H65.91 ; 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 ; Controlled restless leg syndrome G25.81 ; Edema extremities R60.0 ; SI (stress incontinence), female N39.3 ; Benign essential HTN I10 ; Degenerative arthritis of knee M17.9 and Major depressive disorder with single episode, remission status unspecified F32.9 [place] [id number] [place] [address] Apr, OME (otitis media with effusion), right H65.91 [place] [id number] [place] [address] Mar, [place] [id number] [place] [address] Mar, 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 ; Controlled restless leg syndrome G25.81 ; SI (stress incontinence), female N39.3 ; Benign essential HTN I10 ; GERD (gastroesophageal reflux disease) K21.9 ; Knee pain M25.569 and Major depressive disorder with single episode, remission status unspecified F32.9 [place] [id number] [place] [address] Mar, [place] [id number] [place] [address] Mar, [place] [id number] [place] [address] Jan, Pre-op exam Z01.818 [place] [id number] [place] [address] Oct, Urinary tract infection N39.0 ; Benign essential HTN I10 ; Controlled restless leg syndrome G25.81 ; Edema extremities R60.0 ; Degenerative arthritis of knee M17.9 and GERD (gastroesophageal reflux disease) K21.9 [place] [id number] [place] [address] Oct, Izzy albicans infection B37.9 [address] [address] Sep, [facility] [id number] [place] [address] Sep, UTI (urinary tract infection) N39.0 ; Benign essential HTN I10 ; 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 ; Controlled restless leg syndrome G25.81 ; Edema extremities R60.0 ; SI (stress incontinence), female N39.3 and 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 [place] [id number] [place] [address] 12 Sep, 2015 UTI (urinary tract infection) N39.0 [place] [address] [address] Aug, Pre-op evaluation Z01.818 [address] [address] [place] [address] Aug, [place] [id number] [place] [address] Aug, [place] [address] Jul, Right hip pain M25.551 ; 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 and Knee pain M25.569 [place] [address] [address] 08 Jul, 2015 [address] [address] [place] [address] Jun, Knee pain M25.569 ; 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 and Degenerative arthritis of knee M17.9 [place] [address] [address] 16 Jun, 2015 [facility] [id number] [place] [address] Apr, Diabetes mellitus 250.00 ; Influenza vaccine administered V04.81 ; Incontinence 788.30 ; Restless legs syndrome 333.94 ; Sciatica 724.3 ; Essential hypertension, benign 401.1 ; Edema 782.3 and Depression (emotion) 311 [place] [address] [address] Mar, Pain in joint, lower leg 719.46 and Sciatica 724.3 [place] [id number] [place] [address] Mar, [place] [address] [address] Feb, Pain in joint, site unspecified 719.40 ; Other urinary incontinence 788.39 ; Pain in joint, lower leg 719.46 ; Edema 782.3 ; Sciatica 724.3 ; Essential hypertension, benign 401.1 ; Depression 311 ; Diabetes mellitus 250.00 ; Incontinence 788.30 and Restless legs syndrome 333.94 [place] [id number] [place] [address] Feb, [place] [id number] [place] [address] Nov, [place] [id number] [place] [address] Nov, [facility] [id number] [place] [address] Oct, [facility] [id number] [place] [address] Oct, [facility] [id number] [place] [address] Aug, [facility] [id number] [place] [address] Aug, [facility] [place] [facility] [address] [id number] [place] [address] Aug, [facility] [place] [facility] [address] [id number] [place] [address] Aug, [facility] [place] [facility] [address] [id number] [place] [address] Aug, [facility] [place] [facility] [address] [id number] [place] [address] Aug, [facility] [place] [facility] [address] [id number] [place] [address] Jun, [facility] [place] [facility] [address] [id number] [place] [address] Jun, [facility] [place] [facility] [address] [id number] [place] [address] Jun, [facility] [place] [facility] [address] [id number] [place] [address] Jun, [facility] [place] [facility] [address] [id number] [place] [address] Jun, [facility] [place] [facility] [address] [id number] [place] [address] Jun, [facility] [place] [facility] [address] [id number] [place] [address] May, [facility] [place] [facility] [address] [id number] [place] [address] 31 May, 2014 [facility] [place] [facility] [address] [id number] [place] [address] May, [facility] [place] [facility] [address] [id number] [place] [address] May, [facility] [place] [facility] [address] [id number] [place] [address] Apr, [facility] [place] [facility] [address] [id number] [place] [address] Apr, [facility] [place] [facility] [address] [id number] [place] [address] Apr, [facility] [place] [facility] [address] [id number] [place] [address] Apr, [facility] [place] [facility] [address] [id number] [place] [address] Mar, [facility] [place] [facility] [address] [id number] [place] [address] Mar, [facility] [place] [facility] [address] [id number] [place] [address] Mar, [facility] [place] [facility] [address] [id number] [place] [address] Mar, [facility] [place] [facility] [address] [id number] [place] [address] Mar, [facility] [place] [facility] [address] [id number] [place] [address] Mar, [facility] [place] [facility] [address] [id number] [place] [address] Feb, [facility] [place] [facility] [address] [id number] [place] [address] Feb, [facility] [place] [facility] [address] [id number] [place] [address] Jan, [facility] [place] [facility] [address] [id number] [place] [address] Jan, [facility] [place] [facility] [address] [id number] [place] [address] Jan, [facility] [place] [facility] [address] [id number] [place] [address] Jan, [facility] [place] [facility] [address] [id number] [place] [address] December, [facility] [place] [facility] [address] [id number] [place] [address] December, [facility] [place] [facility] [address] [id number] [place] [address] December, [facility] [place] [facility] [address] [id number] [place] [address] December, [facility] [place] [facility] [address] [id number] [place] [address] December, [facility] [place] [facility] [address] [id number] [place] [address] December, [facility] [place] [facility] [address] [id number] [place] [address] December, [facility] [place] [facility] [address] [id number] [place] [address] December, [facility] [place] [facility] [address] [id number] [place] [address] Nov, [facility] [place] [facility] [address] [id number] [place] [address] Nov, [facility] [place] [facility] [address] [id number] [place] [address] Nov, [facility] [place] [facility] [address] [id number] [place] [address] Nov, [facility] [place] [facility] [address] [id number] [place] [address] Oct, [facility] [place] [facility] [address] [id number] [place] [address] Oct, [facility] [place] [facility] [address] [id number] [place] [address] Oct, [facility] [place] [facility] [address] [id number] [place] [address] Oct, [facility] [place] [facility] [address] [id number] [place] [address] Oct, [facility] [place] [facility] [address] [id number] [place] [address] Oct, [facility] [place] [facility] [address] [id number] [place] [address] Oct, [facility] [place] [facility] [address] [id number] [place] [address] Oct, [facility] [place] [facility] [address] [id number] [place] [address] Sep, [facility] [place] [facility] [address] [id number] [place] [address] Sep, [facility] [place] [facility] [address] [id number] [place] [address] Sep, [facility] [place] [facility] [address] [id number] [place] [address] Sep, [facility] [place] [facility] [address] [id number] [place] [address] Sep, [facility] [place] [facility] [address] [id number] [place] [address] Aug, [facility] [place] [facility] [address] [id number] [place] [address] Aug, [facility] [place] [facility] [address] [id number] [place] [address] Jul, [facility] [place] [facility] [address] [id number] [place] [address] Jul, [facility] [place] [facility] [address] [id number] [place] [address] Jul, [facility] [place] [facility] [address] [id number] [place] [address] Jul, [facility] [place] [facility] [address] [id number] [place] [address] Jul, [facility] [place] [facility] [address] [id number] [address] Jul, [facility] [address] [id number] [place] [address] Jul, [facility] [place] [facility] [address] [id number], [place] [address] Jun, [facility] [address] [id number] [place] [address] Jun, [facility] [place] [facility] [address] [id number] [place] [address] Jun, [facility] [address] [id number] [place] [address], [place] [address] Jun, [facility] [place] [facility] [address] [id number] [place] [address] Jun, [facility] [address] [id number], [place] [address] Jun, [facility] [place] [facility] [address] [id number], [place] [address] Jun, [facility] [place] [facility] [address] [id number] [place] [address] Jun, [facility] [place] [facility] [address] [facility] [id number], [place] [address] Jun, [facility] [place] [facility] [address] [id number], [place] [address] Jun, [facility] [place] [facility] [address] [id number] [address] Jun, [facility] [place] [facility] [address] [id number], [place] [address] Jun, [facility] [place] [facility] [address] [id number], [place] [address] Jun, [facility] [place] [facility] [address] [id number], [place] [address] 24 May, 2013 [facility] [place] [facility] [address] [id number] [place] [address] 24 May, 2013 [facility] [place] [facility] [address] [id number] [place] [address] May, [facility] [place] [facility] [address] [id number] [place] [address] May, [facility] [place] [facility] [address] [id number] [place] [address] May, [facility] [place] [facility] [address] [id number] [place] [address] May, [facility] [place] [facility] [address] [id number] [place] [address] May, [facility] [place] [facility] [address] [id number] [place] [address] May, [facility] [place] [facility] [address] [id number] [place] [address] May, [facility] [place] [facility] [address] [id number] [place] [address] 23 Apr, 2013 [facility] [place] [facility] [address] [id number] [place] [address] 21 Apr, 2013 [facility] [place] [facility] [address] [id number] [place] [address] 11 Apr, 2013 [facility] [place] [facility] [address] [id number] [place] [address] 09 Apr, 2013 [facility] [place] [facility] [address] [id number] [place] [address] 15 Mar, 2013 [facility] [place] [facility] [address] [id number] [place] [address] 14 Mar, 2013 [facility] [place] [facility] [address] [id number] [place] [address] 02 Mar, 2013 [facility] [place] [facility] [address] [id number] [place] [address] Jan, [facility] [address] [id number] [place] [address] Jan, [facility] [place] [facility] [address] [id number] [place] [address] 04 Jan, 2013 [facility] [place] [facility] [address] [id number] [place] [address] Jan, [facility] [place] [facility] [address] [id number] [place] [address] December, [facility] [address] [id number] [place] [address] Nov, [facility] [place] [facility] [address] [id number] [place] [address] Nov, [facility] [place] [facility] [address] [id number] [place] [address] Sep, [facility] [place] [facility] [address] [id number] [place] [address] Sep, [facility] [address] [id number] [place] [address] Sep, [facility] [place] [facility] [address] [id number] [place] [address] Aug, [facility] [place] [facility] [address] [id number] [address] 18 Aug, 2012 [facility] [place] [facility] [address] [id number] [address] 17 Aug, 2012 [facility] [place] [facility] [address] [id number] [place] [address] 16 Aug, 2012 [facility] [place] [facility] [address] [id number] [place] [address] 16 Aug, 2012 [facility] [place] [facility] [address] [id number] [place] [address] 15 Aug, 2012 [facility] [place] [facility] [address] [id number] [place] [address] Aug, [facility] [address] [id number] [place] [address] Jul, [facility] [place] [facility] [address] [id number] [place] [address] Jul, [facility] [address] [id number] [place] [address] Jun, [facility] [place] [facility] [address] [id number] [place] [address] Jun, [facility] [address] [id number] [place] [address] May, [facility] [place] [facility] [address] [id number] [place] [address] May, [facility] [place] [facility] [address] [id number] [place] [address] May, [facility] [address] [id number] [place] [address] May, [facility] [place] [facility] [address] [id number] [place] [address] 26 Apr, 2012 [facility] [address] [id number] [place] [address] 24 Apr, 2012 [facility] [place] [facility] [address] [id number] [place] [address] 21 Apr, 2012 [facility] [place] [facility] [address] [id number] [place] [address] 20 Apr, 2012 [facility] [place] [facility] [address] [id number] [place] [address] 20 Apr, 2012 [facility] [place] [facility] [address] [id number] [place] [address] 19 Apr, 2012 [facility] [place] [facility] [address] [id number] [place] [address] Apr, [facility] [address] [id number] [place] [address] Mar, [facility] [place] [facility] [address] [id number] [place] [address] December, [facility] [address] [id number] [place] [address] December, [facility] [place] [facility] [address] [id number] [place] [address] December, [facility] [address] [id number] [place] [address] Sep, [facility] [place] [facility] [address] [id number] [place] [address] Sep, [facility] [address] [id number] [place] [address] Aug, [facility] [place] [facility] [address] [id number] [place] [address] Aug, [facility] [place] [facility] [address] [id number] [place] [address] Aug, [facility] [place] [facility] [address] [id number] [place] [address] Jun, [facility] [place] [facility] [address] [id number] [place] [address] Jun, [facility] [place] [facility] [address] [id number] [address] Jun, [facility] [place] [facility] [address] [id number] [place] [address] Jun, [facility] [place] [facility] [address] [id number] [place] [address] Mar, [facility] [place] [facility] [address] [id number] [place] [address] Jan, [facility] [place] [facility] [address] [facility] [id number] [place] [address] December, IMMUNIZATIONS No Known Immunizations SOCIAL HISTORY Never Assessed REASON FOR VISIT Transition of Care from Yusuf Jiménez RN PLAN OF CARE Activity Details Follow Up 3 Months, prn Reason:CHM/DM/HTN VITAL SIGNS Height 64 in 2017-12-20 Weight 244.8 lbs 2017-12-20 Heart Rate 57 bpm 2017-12-20 Respiratory Rate 18 2017-12-20 Oximetry 98 % 2017-12-20 BMI 42.02 kg/m2 2017-12-20 Blood pressure systolic 124 mmHg 2017-12-20 Blood pressure diastolic 78 mmHg 2017-12-20 MEDICATIONS Medication Instructions Dosage Frequency Start Date End Date Duration Status Oxycodone-Acetaminophen 5-325 MG Orally 2 times a day 1 tablet as needed 12h Nov, December, 28 days Active Oxybutynin Chloride 5 mg Orally Twice a day TAKE ONE TABLET 12h Active MetFORMIN HCl ER 500 mg Orally 2 times a day TAKE ONE TABLET BY MOUTH TWICE DAILY 12h Active Omeprazole 40 mg Orally Once a day 1 capsule 24h Nov, 90 days Active Quinapril HCl 20 MG TAKE ONE TABLET BY MOUTH ONCE DAILY Active Venlafaxine HCl ER 75 MG TAKE ONE CAPSULE BY MOUTH DAILY WITH FOOD Active RESULTS No Results PROCEDURES Procedure Date Ordered Result Body Site [facility] VISIT ESTABLISHED PATIENT December 20, 2017 INSTRUCTIONS MEDICATIONS ADMINISTERED No Known Medications MEDICAL (GENERAL) HISTORY Type Description Date Medical History Hypertension Medical History Neuropathy Medical History Diabetes Medical History Restless leg syndrome Surgical History carpal tunnel left hand. Surgical History Right Knee Surgery Surgical History Left Knee SOA 03/21/16 Hospitalization History Left Knee SOA 03/21/16
--- OUTSIDE RECORDS SUMMARY | 2019-03-05 10:57 | XMS REPORT ---
Author Author PAGE TORRES Organization [facility] Address [address] [place] [address] Care Team Providers Care Clerical Adjuster Name Role Phone ABELTORRES Hollis Unavailable PROBLEMS Type Condition ICD9-CM Code LKN74-FT Code Onset Dates Condition Status SNOMED Code Problem Type 2 diabetes mellitus with diabetic peripheral angiopathy without gangrene, without long-term current use of insulin E11.51 Active 660878304 Problem Controlled restless leg syndrome G25.81 Active 00903285 Problem Benign essential HTN I10 Active 0643947 Problem OAB (overactive bladder) N32.81 Active 855679081 Problem Body mass index (BMI) of 40.0-44.9 in adult Z68.41 Active 281698305 Problem GERD (gastroesophageal reflux disease) K21.9 Active 878734293 Problem Degenerative arthritis of knee M17.9 Active 936442801 Problem Morbid (severe) obesity due to excess calories E66.01 Active 554106381 Problem Mild single current episode of major depressive disorder F32.0 Active [id number] ALLERGIES No Information ENCOUNTERS Encounter Location Date Diagnosis [facility] [address], [place] [address] Mar, [facility] [id number] [address] Mar, [facility] [address], [place] [address] Feb, Degenerative arthritis of knee M17.9 [facility] [address], [place] [address] Feb, [facility] [id number], [place] [address] Jan, Degenerative arthritis of knee M17.9 [facility] [id number] [place] [address] Jan, Herpes zoster without complication B02.9 and BMI 40.0-44.9, adult Z68.41 [place] [id number] [place] [address] December, Degenerative arthritis of knee M17.9 [place] [address] [address] Nov, Benign essential HTN I10 ; Type [...] Z68.41 and GERD (gastroesophageal reflux disease) K21.9 [place] [id number] [place] [address] Nov, [place] [id number] [place] [address] Oct, Degenerative arthritis of knee M17.9 [place] [id number] [place] [address] Oct, [place] [id number] [place] [address] Oct, Type 2 diabetes mellitus with diabetic peripheral angiopathy without gangrene, without long-term current use of insulin E11.51 and Controlled substance agreement signed Z79.899 [place] [id number] [place] [address] Oct, Degenerative arthritis of knee M17.9 [place] [id number] [place] [address] Sep, Type 2 diabetes mellitus with diabetic peripheral angiopathy without gangrene, without long-term current use of insulin E11.51 ; Benign essential HTN I10 ; BMI 40.0-44.9, adult Z68.41 ; Mild single current episode of major depressive disorder F32.0 ; OAB (overactive bladder) N32.81 ; Degenerative arthritis of knee M17.9 and GERD (gastroesophageal reflux disease) K21.9 [id number] [place] [address] Aug, Joint pain and swelling due to Lyme disease A69.20 [place] [address] [address] Jun, [address] [address] May, 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 ; Benign essential HTN I10 ; 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 ; Body mass index (BMI) of 40.0-44.9 in adult Z68.41 and Morbid (severe) obesity due to excess calories E66.01 [address] [id number] [place] [address] May, Encounter for immunization Z23 [address] [address] May, 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 [address] [id number] [place] [address] Mar, Mild single current episode of major depressive disorder F32.0 [address] [id number] [place] [address] Mar, Joint pain and swelling due to Lyme disease A69.[address] [address] Feb, Izzy infection B37.9 [place] [id number] [place] [address] Jan, Insect bite (nonvenomous) of abdominal wall, initial encounter S30.861A and Joint pain and swelling due to Lyme disease A69.20 [place] [id number] [place] [address] Jan, [place] [id number] [place] [address] 16 Sep, 2016 Mild single current episode of major depressive disorder F32.0 and 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 [place] [id number] [place] [address] 13 Sep, 2016 Controlled restless leg syndrome G25.81 and Cramp of both lower extremities R25.2 [place] [id number] [place] [address] Aug, 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 ; Controlled restless leg syndrome G25.81 ; SI (stress incontinence), female N39.3 ; Benign essential HTN I10 ; 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 ; GERD (gastroesophageal reflux disease) K21.9 ; Screening cholesterol level Z13.220 and Mild single current episode of major depressive disorder F32.0 [place] [id number] [place] [address] Aug, [place] [id number] [place] [address] May, [place] [id number] [place] [address] May, Encounter for immunization Z23 [place] [id number] [place] [address] Apr, [place] [id number] [place] [address] Apr, [place] [id number] [place] [address] Apr, SAMANTHA (secretory otitis media), right H65.91 ; 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 ; Controlled restless leg syndrome G25.81 ; Edema extremities R60.0 ; SI (stress incontinence), female N39.3 ; Benign essential HTN I10 ; Degenerative arthritis of knee M17.9 and Major depressive disorder with single episode, remission status unspecified F32.9 [facility] [id number] [place] [address] Apr, OME (otitis media with effusion), right H65.91 [facility] [id number] [place] [address] Mar, [place] [id number] [place] [address] Mar, 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 ; Controlled restless leg syndrome G25.81 ; SI (stress incontinence), female N39.3 ; Benign essential HTN I10 ; GERD (gastroesophageal reflux disease) K21.9 ; Knee pain M25.569 and Major depressive disorder with single episode, remission status unspecified F32.9 [place] [id number] [place] [address] Mar, [place] [id number] [place] [address] Mar, [place] [id number] [place] [address] Jan, Pre-op exam Z01.818 [place] [id number] [place] [address] Oct, Urinary tract infection N39.0 ; Benign essential HTN I10 ; Controlled restless leg syndrome G25.81 ; Edema extremities R60.0 ; Degenerative arthritis of knee M17.9 and GERD (gastroesophageal reflux disease) K21.9 [facility] [id number] [place] [address] Oct, Izzy albicans infection B37.9 [facility] [id number] [place] [address] Sep, [place] [id number] [place] [address] Sep, UTI (urinary tract infection) N39.0 ; Benign essential HTN I10 ; 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 ; Controlled restless leg syndrome G25.81 ; Edema extremities R60.0 ; SI (stress incontinence), female N39.3 and 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 [place] [id number] [place] [address] 12 Sep, 2015 UTI (urinary tract infection) N39.0 [place] [id number] [place] [address] Aug, Pre-op evaluation Z01.818 [place] [id number] [place] [address] Aug, [place] [id number] [place] [address] Aug, [place] [id number] [place] [address] Jul, Right hip pain M25.551 ; 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 and Knee pain M25.569 [place] [id number] [place] [address] Jul, [place] [id number] [place] [address] Jun, Knee pain M25.569 ; 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 and Degenerative arthritis of knee M17.9 [place] [id number] [place] [address] Jun, [place] [id number] [place] [address] Apr, Diabetes mellitus 250.00 ; Influenza vaccine administered V04.81 ; Incontinence 788.30 ; Restless legs syndrome 333.94 ; Sciatica 724.3 ; Essential hypertension, benign 401.1 ; Edema 782.3 and Depression (emotion) 311 [facility] [id number] [place] [address] Mar, Pain in joint, lower leg 719.46 and Sciatica 724.3 [facility] [id number] [place] [address] Mar, [facility] [id number] [place] [address] Feb, Pain in joint, site unspecified 719.40 ; Other urinary incontinence 788.39 ; Pain in joint, lower leg 719.46 ; Edema 782.3 ; Sciatica 724.3 ; Essential hypertension, benign 401.1 ; Depression 311 ; Diabetes mellitus 250.00 ; Incontinence 788.30 and Restless legs syndrome 333.94 [facility] [id number] [place] [address] Feb, [facility] [id number] [place] [address] Nov, [facility] [id number] [place] [address] Nov, [facility] [id number] [place] [address] Oct, [facility] [id number] [place] [address] Oct, [facility] [id number] [place] [address] Aug, [facility] [id number] [place] [address] Aug, [facility] [id number] [place] [address] Aug, [facility] [id number] [place] [address] Aug, [facility] [place] [facility] [address] [id number] [place] [address] Aug, [facility] [place] [facility] [address] [id number] [place] [address] Aug, [facility] [place] [facility] [address] [id number] [place] [address] Jun, [facility] [place] [facility] [address] [id number] [place] [address] Jun, [facility] [place] [facility] [address] [id number] [place] [address] Jun, [facility] [place] [facility] [address] [id number] [place] [address] Jun, [facility] [place] [facility] [address] [id number] [place] [address] Jun, [facility] [place] [facility] [address] [id number] [place] [address] Jun, [facility] [place] [facility] [address] [id number] [place] [address] May, [facility] [place] [facility] [address] [id number] [place] [address] May, [facility] [place] [facility] [address] [id number] [place] [address] May, [facility] [place] [facility] [address] [id number] [place] [address] 16 May, 2014 [facility] [place] [facility] [address] [id number] [place] [address] 22 Apr, 2014 [facility] [place] [facility] [address] [id number] [place] [address] 22 Apr, 2014 [facility] [place] [facility] [address] [id number] [place] [address] 17 Apr, 2014 [facility] [place] [facility] [address] [id number] [place] [address] Apr, [facility] [place] [facility] [address] [id number] [place] [address] Mar, [facility] [place] [facility] [address] [id number] [place] [address] Mar, [facility] [place] [facility] [address] [id number] [place] [address] Mar, [facility] [place] [facility] [address] [id number] [place] [address] Mar, [facility] [place] [facility] [address] [id number] [place] [address] Mar, [facility] [place] [facility] [address] [id number] [place] [address] Mar, [facility] [place] [facility] [address] [id number] [place] [address] Feb, [facility] [place] [facility] [address] [id number] [place] [address] Feb, [facility] [place] [facility] [address] [id number] [place] [address] Jan, [facility] [place] [facility] [address] [id number] [place] [address] Jan, [facility] [place] [facility] [address] [id number] [place] [address] Jan, [facility] [place] [facility] [address] [id number] [place] [address] Jan, [facility] [place] [facility] [address] [id number] [place] [address] December, [facility] [place] [facility] [address] [id number] [place] [address] December, [facility] [place] [facility] [address] [id number] [place] [address] December, [facility] [place] [facility] [address] [id number] [place] [address] December, [facility] [place] [facility] [address] [id number] [place] [address] December, [facility] [place] [facility] [address] [id number] [place] [address] December, [facility] [place] [facility] [address] [id number] [place] [address] December, [facility] [place] [facility] [address] [id number] [place] [address] December, [facility] [place] [facility] [address] [id number] [place] [address] Nov, [facility] [place] [facility] [address] [id number] [place] [address] Nov, [facility] [place] [facility] [address] [id number] [place] [address] Nov, [facility] [place] [facility] [address] [id number] [place] [address] Nov, [facility] [place] [facility] [address] [id number] [place] [address] Oct, [facility] [place] [facility] [address] [id number] [place] [address] Oct, [facility] [place] [facility] [address] [id number] [place] [address] Oct, [facility] [place] [facility] [address] [id number] [place] [address] Oct, [facility] [place] [facility] [address] [id number] [place] [address] Oct, [facility] [place] [facility] [address] [id number] [place] [address] Oct, [facility] [place] [facility] [address] [id number] [place] [address] Oct, [facility] [address] [id number] [place] [address] Oct, [facility] [place] [facility] [address] [id number] [place] [address] Sep, [facility] [place] [facility] [address] [id number] [place] [address] Sep, [facility] [place] [facility] [address] [id number] [place] [address] Sep, [facility] [place] [facility] [address] [id number] [place] [address] Sep, [facility] [place] [facility] [address] [id number] [place] [address] Sep, [facility] [place] [facility] [address] [id number] [place] [address] Aug, [facility] [place] [facility] [address] [id number] [place] [address] Aug, [facility] [place] [facility] [address] [id number] [place] [address] Jul, [facility] [place] [facility] [address] [id number] [place] [address] Jul, [facility] [place] [facility] [address] [id number] [place] [address] Jul, [facility] [place] [facility] [address] [id number] [place] [address] Jul, [facility] [place] [facility] [address] [id number] [place] [address] Jul, [facility] [place] [facility] [address] [id number] [place] [address] Jul, [facility] [place] [facility] [address] [id number] [place] [address] Jul, [facility] [place] [facility] [address] [id number] [place] [address] Jun, [facility] [place] [facility] [address] [id number] [place] [address] Jun, [facility] [place] [facility] [address] [id number] [place] [address] Jun, [facility] [place] [facility] [address] [id number] [place] [address] Jun, [facility] [place] [facility] [address] [id number] [place] [address] Jun, [facility] [place] [facility] [address] [id number] [place] [address] Jun, [facility] [place] [facility] [address] [id number] [place] [address] Jun, [facility] [place] [facility] [address] [id number], [place] [address] Jun, [facility] [place] [facility] [address] [id number] [place] [address] Jun, [facility] [place] [facility] [address] [id number], [place] [address] Jun, [facility] [place] [facility] [address] [id number], [place] [address] Jun, [facility] [place] [facility] [address] [id number], [place] [address] Jun, [facility] [place] [facility] [address] [id number], [place] [address] Jun, [facility] [place] [facility] [address] [id number], [place] [address] May, [facility] [place] [facility] [address] [id number], [place] [address] May, [facility] [place] [facility] [address] [id number], [place] [address] 18 May, 2013 [facility] [place] [facility] [address] [id number] [place] [address] 18 May, 2013 [facility] [place] [facility] [address] [id number] [place] [address] May, [facility] [place] [facility] [address] [id number] [place] [address] 11 May, 2013 [facility] [place] [facility] [address] [id number] [place] [address] 10 May, 2013 [facility] [place] [facility] [address] [id number] [place] [address] 10 May, 2013 [facility] [place] [facility] [address] [id number] [place] [address] May, [facility] [place] [facility] [address] [id number] [place] [address] 23 Apr, 2013 [facility] [place] [facility] [address] [id number] [place] [address] 21 Apr, 2013 [facility] [place] [facility] [address] [id number] [place] [address] Apr, [facility] [place] [facility] [address] [id number] [place] [address] 09 Apr, 2013 [facility] [place] [facility] [address] [id number], [place] [address] 15 Mar, 2013 [facility] [place] [facility] [address] [id number], [place] [address] 14 Mar, 2013 [facility] [place] [facility] [address] [id number] [place] [address] Mar, [facility] [place] [facility] [address] [id number], [place] [address] Jan, [facility] [place] [facility] [address] [id number] [place] [address] Jan, [facility] [place] [facility] [address] [id number] [place] [address] 04 Jan, 2013 [facility] [address] [id number] [place] [address] Jan, [facility] [place] [facility] [address] [id number] [place] [address] December, [facility] [address] [id number] [place] [address] Nov, [facility] [place] [facility] [address] [id number] [place] [address] Nov, [facility] [address] [id number] [place] [address] Sep, [facility] [address] [id number] [place] [address] Sep, [facility] [address] [id number] [place] [address] Sep, [facility] [address] [id number] [place] [address] Aug, [facility] [address] [id number] [place] [address] Aug, [facility] [address] [id number] [place] [address] 17 Aug, 2012 [facility] [address] [id number] [place] [address] Aug, [facility] [address] [id number] [place] [address] 16 Aug, 2012 [facility] [place] [facility] [address] [id number] [place] [address] 15 Aug, 2012 [facility] [place] [facility] [address] [id number] [place] [address] 04 Aug, 2012 [facility] [place] [facility] [address] [id number] [place] [address] Jul, [facility] [place] [facility] [address] [id number] [place] [address] Jul, [facility] [place] [facility] [address] [id number] [place] [address] Jun, [facility] [place] [facility] [address] [facility] [id number] [place] [address] Jun, [facility] [place] [facility] [address] [id number] [place] [address] May, [facility] [place] [facility] [address] [id number] [place] [address] May, [facility] [place] [facility] [address] [id number] [place] [address] May, [facility] [place] [facility] [address] [id number] [place] [address] May, [facility] [place] [facility] [address] [id number], [place] [address] Apr, [facility] [place] [facility] [address] [id number] [place] [address] 24 Apr, 2012 [facility] [place] [facility] [address] [id number] [place] [address] 21 Apr, 2012 [facility] [place] [facility] [address] [id number], [place] [address] 20 Apr, 2012 [facility] [place] [facility] [address] [id number], [place] [address] 20 Apr, 2012 [facility] [place] [facility] [address] [id number] [place] [address] 19 Apr, 2012 [facility] [place] [facility] [address] [facility] [id number], [place] [address] 12 Apr, 2012 [facility] [place] [facility] [address] [facility] [id number], [place] [address] Mar, [facility] [place] [facility] [id number], [place] [address] December, [facility] [address] [facility] [id number], [place] [address] December, [facility] [address] [facility] [id number], [place] [address] December, [facility] [id number], [place] [address] 10 Sep, 2011 [facility] [address] [facility] [id number], [place] [address] Sep, [facility] [id number], [place] [address] Aug, [facility] [id number], [place] [address] Aug, [facility] [id number], [place] [address] Aug, [facility] [id number], [place] [address] Jun, [facility] [id number], [place] [address] Jun, [facility] [address], [place] [address] Jun, [facility] [id number], [place] [address] Jun, [facility] [address] [id number], [place] [address] Mar, [facility] [id number], [place] [address] Jan, [facility] [id number], [place] [address] December, IMMUNIZATIONS No Known Immunizations SOCIAL HISTORY Never Assessed REASON FOR VISIT Controlled Med Refill PLAN OF CARE VITAL SIGNS MEDICATIONS Medication Instructions Dosage Frequency Start Date End Date Duration Status Oxycodone-Acetaminophen 5-325 MG Orally 3 times a day 1 tablet as needed 8h Oct, Nov, 28 days Active RESULTS No Results PROCEDURES [...]
--- OUTSIDE RECORDS SUMMARY | 2019-03-05 10:57 | XMS REPORT ---
Author Author PAGE TORRES Organization [facility] [place] Address [address] [place] [address] Care Team Providers Care Tail Dogger Name Role Phone ABELTORRES Hollis Unavailable PROBLEMS Type Condition ICD9-CM Code OEX56-YY Code Onset Dates Condition Status SNOMED Code Problem Type 2 diabetes mellitus with diabetic peripheral angiopathy without gangrene, without long-term current use of insulin E11.51 Active 576431391 Problem Controlled restless leg syndrome G25.81 Active 30980589 Problem Benign essential HTN I10 Active 8853891 Problem OAB (overactive bladder) N32.81 Active 200876716 Problem Body mass index (BMI) of 40.0-44.9 in adult Z68.41 Active 450008127 Problem GERD (gastroesophageal reflux disease) K21.9 Active 746131015 Problem Degenerative arthritis of knee M17.9 Active 875525335 Problem Morbid (severe) obesity due to excess calories E66.01 Active 061946207 Problem Mild single current episode of major depressive disorder F32.0 Active 28242712 ALLERGIES No Information ENCOUNTERS Encounter Location Date Diagnosis [facility] [place] [address] [address] Mar, [facility] [place] [id number] [address] Mar, [facility] [place] [address] [address] Feb, Degenerative arthritis of knee M17.9 [facility] [place] [address] [address] Feb, [facility] [place] [id number] [address] Jan, Degenerative arthritis of knee M17.9 [facility] [place] [id number] [place] [address] Jan, Herpes zoster without complication B02.9 and BMI 40.0-44.9, adult Z68.41 [place] [id number] [place] [address] December, Degenerative arthritis of knee M17.9 [place] [address] [address] Nov, Benign essential HTN I10 ; Type [...] Z68.41 and GERD (gastroesophageal reflux disease) K21.9 [place] [id number] [place] [address] Nov, [place] [id number] [place] [address] Oct, Degenerative arthritis of knee M17.9 [place] [id number] [place] [address] Oct, [place] [id number] [place] [address] Oct, Type 2 diabetes mellitus with diabetic peripheral angiopathy without gangrene, without long-term current use of insulin E11.51 and Controlled substance agreement signed Z79.899 [place] [id number] [place] [address] Oct, Degenerative arthritis of knee M17.9 [place] [id number] [place] [address] Sep, Type 2 diabetes mellitus with diabetic peripheral angiopathy without gangrene, without long-term current use of insulin E11.51 ; Benign essential HTN I10 ; BMI 40.0-44.9, adult Z68.41 ; Mild single current episode of major depressive disorder F32.0 ; OAB (overactive bladder) N32.81 ; Degenerative arthritis of knee M17.9 and GERD (gastroesophageal reflux disease) K21.9 [id number] [place] [address] Aug, Joint pain and swelling due to Lyme disease A69.20 [place] [address] [address] Jun, [address] [address] May, 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 ; Benign essential HTN I10 ; 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 ; Body mass index (BMI) of 40.0-44.9 in adult Z68.41 and Morbid (severe) obesity due to excess calories E66.01 [id number] [place] [address] May, Encounter for immunization Z23 [address] [address] May, 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 [id number] [place] [address] Mar, Mild single current episode of major depressive disorder F32.0 [id number] [place] [address] Mar, Joint pain and swelling due to Lyme disease A69.[address] [address] Feb, Izzy infection B37.9 [id number] [place] [address] Jan, Insect bite (nonvenomous) of abdominal wall, initial encounter S30.861A and Joint pain and swelling due to Lyme disease A69.20 [place] [id number] [place] [address] Jan, [place] [id number] [place] [address] 16 Sep, 2016 Mild single current episode of major depressive disorder F32.0 and 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 [place] [id number] [place] [address] 13 Sep, 2016 Controlled restless leg syndrome G25.81 and Cramp of both lower extremities R25.2 [place] [id number] [place] [address] Aug, 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 ; Controlled restless leg syndrome G25.81 ; SI (stress incontinence), female N39.3 ; Benign essential HTN I10 ; 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 ; GERD (gastroesophageal reflux disease) K21.9 ; Screening cholesterol level Z13.220 and Mild single current episode of major depressive disorder F32.0 [place] [id number] [place] [address] Aug, [place] [id number] [place] [address] May, [place] [id number] [place] [address] May, Encounter for immunization Z23 [place] [id number] [place] [address] Apr, [place] [id number] [place] [address] Apr, [place] [id number] [place] [address] Apr, SAMANTHA (secretory otitis media), right H65.91 ; 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 ; Controlled restless leg syndrome G25.81 ; Edema extremities R60.0 ; SI (stress incontinence), female N39.3 ; Benign essential HTN I10 ; Degenerative arthritis of knee M17.9 and Major depressive disorder with single episode, remission status unspecified F32.9 [facility] [place] [address] [place] [address] Apr, OME (otitis media with effusion), right H65.91 [facility] [place] [id number] [place] [address] Mar, [place] [id number] [place] [address] Mar, 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 ; Controlled restless leg syndrome G25.81 ; SI (stress incontinence), female N39.3 ; Benign essential HTN I10 ; GERD (gastroesophageal reflux disease) K21.9 ; Knee pain M25.569 and Major depressive disorder with single episode, remission status unspecified F32.9 [place] [id number] [place] [address] Mar, [place] [id number] [place] [address] Mar, [place] [id number] [place] [address] Jan, Pre-op exam Z01.818 [place] [id number] [place] [address] Oct, Urinary tract infection N39.0 ; Benign essential HTN I10 ; Controlled restless leg syndrome G25.81 ; Edema extremities R60.0 ; Degenerative arthritis of knee M17.9 and GERD (gastroesophageal reflux disease) K21.9 [facility] [place] [id number] [place] [address] Oct, Izzy albicans infection B37.9 [facility] [place] [id number] [place] [address] Sep, [place] [address] [place] [address] Sep, UTI (urinary tract infection) N39.0 ; Benign essential HTN I10 ; 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 ; Controlled restless leg syndrome G25.81 ; Edema extremities R60.0 ; SI (stress incontinence), female N39.3 and 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 [place] [id number] [place] [address] 12 Sep, 2015 UTI (urinary tract infection) N39.0 [place] [id number] [place] [address] Aug, Pre-op evaluation Z01.818 [place] [id number] [place] [address] Aug, [place] [id number] [place] [address] Aug, [place] [id number] [place] [address] Jul, Right hip pain M25.551 ; 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 and Knee pain M25.569 [place] [id number] [place] [address] Jul, [place] [id number] [place] [address] Jun, Knee pain M25.569 ; 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 and Degenerative arthritis of knee M17.9 [place] [id number] [place] [address] Jun, [place] [id number] [place] [address] Apr, Diabetes mellitus 250.00 ; Influenza vaccine administered V04.81 ; Incontinence 788.30 ; Restless legs syndrome 333.94 ; Sciatica 724.3 ; Essential hypertension, benign 401.1 ; Edema 782.3 and Depression (emotion) 311 [facility] [place] [id number] [place] [address] Mar, Pain in joint, lower leg 719.46 and Sciatica 724.3 [facility] [place] [id number] [place] [address] Mar, [facility] [place] [id number] [place] [address] Feb, Pain in joint, site unspecified 719.40 ; Other urinary incontinence 788.39 ; Pain in joint, lower leg 719.46 ; Edema 782.3 ; Sciatica 724.3 ; Essential hypertension, benign 401.1 ; Depression 311 ; Diabetes mellitus 250.00 ; Incontinence 788.30 and Restless legs syndrome 333.94 [facility] [place] [id number] [place] [address] Feb, [facility] [place] [id number] [place] [address] Nov, [facility] [place] [id number] [place] [address] Nov, [facility] [place] [id number] [place] [address] Oct, [facility] [place] [id number] [place] [address] Oct, [facility] [place] [id number] [place] [address] Aug, [facility] [place] [id number] [place] [address] Aug, [facility] [place] [id number] [place] [address] Aug, [facility] [place] [id number] [place] [address] Aug, [facility] [place] [facility] [address] [id number] [place] [address] Aug, [facility] [place] [facility] [address] [id number] [place] [address] Aug, [facility] [place] [facility] [address] [id number] [place] [address] Jun, [facility] [place] [facility] [address] [id number] [place] [address] Jun, [facility] [place] [facility] [address] [id number] [place] [address] Jun, [facility] [place] [facility] [address] [id number] [place] [address] Jun, [facility] [place] [facility] [address] [id number] [place] [address] Jun, [facility] [place] [facility] [address] [id number] [place] [address] Jun, [facility] [place] [facility] [address] [id number] [place] [address] May, [facility] [place] [facility] [address] [id number] [place] [address] May, [facility] [place] [facility] [address] [id number] [place] [address] May, [facility] [place] [facility] [address] [id number] [place] [address] 16 May, 2014 [facility] [place] [facility] [address] [id number] [place] [address] 22 Apr, 2014 [facility] [place] [facility] [address] [id number] [place] [address] 22 Apr, 2014 [facility] [place] [facility] [address] [id number] [place] [address] 17 Apr, 2014 [facility] [place] [facility] [address] [id number] [place] [address] Apr, [facility] [place] [facility] [address] [id number] [place] [address] Mar, [facility] [place] [facility] [address] [id number] [place] [address] Mar, [facility] [place] [facility] [address] [id number] [place] [address] Mar, [facility] [place] [facility] [address] [id number] [place] [address] Mar, [facility] [place] [facility] [address] [id number] [place] [address] Mar, [facility] [place] [facility] [address] [id number] [place] [address] Mar, [facility] [place] [facility] [address] [id number] [place] [address] Feb, [facility] [place] [facility] [address] [id number] [place] [address] Feb, [facility] [place] [facility] [address] [id number] [place] [address] Jan, [facility] [place] [facility] [address] [id number] [place] [address] Jan, [facility] [place] [facility] [address] [id number] [place] [address] Jan, [facility] [place] [facility] [address] [id number] [place] [address] Jan, [facility] [place] [facility] [address] [id number] [place] [address] December, [facility] [place] [facility] [address] [id number] [place] [address] December, [facility] [place] [facility] [address] [id number] [place] [address] December, [facility] [place] [facility] [address] [id number] [place] [address] December, [facility] [place] [facility] [address] [id number] [place] [address] December, [facility] [place] [facility] [address] [id number] [place] [address] December, [facility] [place] [facility] [address] [id number] [place] [address] December, [facility] [place] [facility] [address] [id number] [place] [address] December, [facility] [place] [facility] [address] [id number] [place] [address] Nov, [facility] [place] [facility] [address] [id number] [place] [address] Nov, [facility] [place] [facility] [address] [id number] [place] [address] Nov, [facility] [place] [facility] [address] [id number] [place] [address] Nov, [facility] [place] [facility] [address] [id number] [place] [address] Oct, [facility] [place] [facility] [address] [id number] [place] [address] Oct, [facility] [place] [facility] [address] [id number] [place] [address] Oct, [facility] [place] [facility] [address] [id number] [place] [address] Oct, [facility] [place] [facility] [address] [id number] [place] [address] Oct, [facility] [place] [facility] [address] [id number] [place] [address] Oct, [facility] [place] [facility] [address] [id number] [place] [address] Oct, [facility] [address] [id number] [place] [address] Oct, [facility] [place] [facility] [address] [id number] [place] [address] Sep, [facility] [place] [facility] [address] [id number] [place] [address] Sep, [facility] [place] [facility] [address] [id number] [place] [address] Sep, [facility] [place] [facility] [address] [id number] [place] [address] Sep, [facility] [place] [facility] [address] [id number] [place] [address] Sep, [facility] [place] [facility] [address] [id number] [place] [address] Aug, [facility] [place] [facility] [address] [id number] [place] [address] Aug, [facility] [place] [facility] [address] [id number] [place] [address] Jul, [facility] [place] [facility] [address] [id number] [place] [address] Jul, [facility] [place] [facility] [address] [id number] [place] [address] Jul, [facility] [place] [facility] [address] [id number] [place] [address] Jul, [facility] [place] [facility] [address] [id number] [place] [address] Jul, [facility] [place] [facility] [address] [id number] [place] [address] Jul, [facility] [place] [facility] [address] [id number] [place] [address] Jul, [facility] [place] [facility] [address] [id number] [place] [address] Jun, [facility] [place] [facility] [address] [id number] [place] [address] Jun, [facility] [place] [facility] [address] [id number] [place] [address] Jun, [facility] [place] [facility] [address] [id number] [place] [address] Jun, [facility] [place] [facility] [address] [id number] [place] [address] Jun, [facility] [place] [facility] [address] [id number] [place] [address] Jun, [facility] [place] [facility] [address] [id number] [place] [address] Jun, [facility] [place] [facility] [address] [id number] [address] Jun, [facility] [place] [facility] [address] [id number] [place] [address] Jun, [facility] [place] [facility] [address] [id number] [place] [address] Jun, [facility] [place] [facility] [address] [id number] [place] [address] Jun, [facility] [place] [facility] [address] [id number] [place] [address] Jun, [facility] [place] [facility] [address] [id number] [place] [address] Jun, [facility] [place] [facility] [address] [id number] [place] [address] May, [facility] [place] [facility] [address] [id number] [address] May, [facility] [place] [facility] [address] [id number] [place] [address] 18 May, 2013 [facility] [place] [facility] [address] [id number] [place] [address] 18 May, 2013 [facility] [place] [facility] [address] [id number] [place] [address] May, [facility] [place] [facility] [address] [id number] [place] [address] 11 May, 2013 [facility] [place] [facility] [address] [id number] [place] [address] 10 May, 2013 [facility] [place] [facility] [address] [id number] [place] [address] 10 May, 2013 [facility] [place] [facility] [address] [id number] [place] [address] May, [facility] [place] [facility] [address] [id number] [place] [address] 23 Apr, 2013 [facility] [place] [facility] [address] [id number] [place] [address] 21 Apr, 2013 [facility] [place] [facility] [address] [id number] [place] [address] Apr, [facility] [place] [facility] [address] [id number] [place] [address] 09 Apr, 2013 [facility] [place] [facility] [address] [id number] [address] 15 Mar, 2013 [facility] [place] [facility] [address] [id number] [place] [address] 14 Mar, 2013 [facility] [place] [facility] [address] [id number] [place] [address] Mar, [facility] [place] [facility] [address] [id number] [place] [address] Jan, [facility] [place] [facility] [address] [id number] [place] [address] Jan, [facility] [place] [facility] [address] [id number] [place] [address] 04 Jan, 2013 [facility] [address] [id number] [place] [address] Jan, [facility] [place] [facility] [address] [id number] [place] [address] December, [facility] [address] [id number] [place] [address] Nov, [facility] [place] [facility] [address] [id number] [place] [address] Nov, [facility] [address] [id number] [place] [address] Sep, [facility] [address] [id number] [place] [address] Sep, [facility] [address] [id number] [place] [address] Sep, [facility] [address] [id number] [place] [address] Aug, [facility] [address] [id number] [place] [address] Aug, [facility] [address] [id number] [place] [address] 17 Aug, 2012 [facility] [address] [id number] [place] [address] Aug, [facility] [address] [id number] [place] [address] 16 Aug, 2012 [facility] [place] [facility] [address] [id number] [place] [address] 15 Aug, 2012 [facility] [place] [facility] [address] [id number] [place] [address] 04 Aug, 2012 [facility] [place] [facility] [address] [id number] [place] [address] Jul, [facility] [place] [facility] [address] [id number] [place] [address] Jul, [facility] [place] [facility] [address] [id number] [place] [address] Jun, [facility] [place] [facility] [address] [facility] [id number] [place] [address] Jun, [facility] [place] [facility] [address] [id number] [place] [address] May, [facility] [place] [facility] [address] [id number] [place] [address] May, [facility] [place] [facility] [address] [id number] [place] [address] May, [facility] [place] [facility] [address] [id number] [place] [address] May, [facility] [place] [facility] [address] [id number] [place] [address] Apr, [facility] [place] [facility] [address] [id number] [place] [address] 24 Apr, 2012 [facility] [place] [facility] [address] [id number] [place] [address] 21 Apr, 2012 [facility] [place] [facility] [address] [id number] [place] [address] 20 Apr, 2012 [facility] [place] [facility] [address] [id number] [place] [address] 20 Apr, 2012 [facility] [place] [facility] [address] [id number] [place] [address] 19 Apr, 2012 [facility] [place] [facility] [address] [facility] [id number] [id number] 12 Apr, 2012 [facility] [address] [facility] [id number] [address] Mar, [facility] [id number] [address] December, [facility] [place] [address] [facility] [id number] [place] [address] December, [facility] [place] [address] [facility] [id number] [address] December, [facility] [place] [address] [address] 10 Sep, 2011 [facility] [place] [address] [facility] [id number] [place] [address] Sep, [facility] [place] [id number] [place] [id number] Aug, [facility] [place] [id number] [address] Aug, [facility] [place] [address] [address] Aug, [facility] [place] [address] [address] Jun, [facility] [place] [id number] [address] Jun, [facility] [place] [id number] [address] Jun, [facility] [place] [address] [address] Jun, [facility] [place] [id number] [address] Mar, [facility] [place] [address] [address] Jan, [facility] [place] [address] [address] December, IMMUNIZATIONS No Known Immunizations SOCIAL HISTORY Never Assessed REASON FOR VISIT medication refill PLAN OF CARE VITAL SIGNS MEDICATIONS Medication Instructions Dosage Frequency Start Date End Date Duration Status Oxybutynin Chloride 5 mg Orally Twice a day TAKE ONE TABLET 12h 30 Active RESULTS No Results PROCEDURES No Known [...]
--- OUTSIDE RECORDS SUMMARY | 2019-03-05 10:58 | XMS REPORT ---
Author Author PAGE TORRES Organization [facility] Address [address] [place] [address] Care Team Providers Care Ship'S Surveyor Name Role Phone ABELTORRES Hollis Unavailable PROBLEMS Type Condition ICD9-CM Code OPC92-GZ Code Onset Dates Condition Status SNOMED Code Problem Type 2 diabetes mellitus with diabetic peripheral angiopathy without gangrene, without long-term current use of insulin E11.51 Active 959408949 Problem Controlled restless leg syndrome G25.81 Active 86656219 Problem Benign essential HTN I10 Active 0447414 Problem OAB (overactive bladder) N32.81 Active 006407683 Problem Body mass index (BMI) of 40.0-44.9 in adult Z68.41 Active 253771196 Problem GERD (gastroesophageal reflux disease) K21.9 Active 175478424 Problem Degenerative arthritis of knee M17.9 Active 071506019 Problem Morbid (severe) obesity due to excess calories E66.01 Active 854978761 Problem Mild single current episode of major depressive disorder F32.0 Active 34397627 ALLERGIES No Information ENCOUNTERS Encounter Location Date Diagnosis [facility] [address] [address] Mar, [facility] [id number] [address] Mar, [facility] [address], [place] [address] Feb, Degenerative arthritis of knee M17.9 [facility] [address] [address] Feb, [facility] [id number] [address] Jan, Degenerative arthritis of knee M17.9 [facility] [id number] [place] [address] Jan, Herpes zoster without complication B02.9 and BMI 40.0-44.9, adult Z68.41 [place] [id number] [place] [address] December, Degenerative arthritis of knee M17.9 [place] [address] [address] Nov, Benign essential HTN I10 ; Type [...] GERD (gastroesophageal reflux disease) K21.9 [place] [id number] [place] [address] Nov, [place] [id number] [place] [address] Oct, Degenerative arthritis of knee M17.9 [place] [id number] [place] [address] Oct, [place] [id number] [place] [address] Oct, Type 2 diabetes mellitus with diabetic peripheral angiopathy without gangrene, without long-term current use of insulin E11.51 and Controlled substance agreement signed Z79.899 [place] [id number] [place] [address] Oct, Degenerative arthritis of knee M17.9 [place] [id number] [place] [address] Sep, Type 2 diabetes mellitus with diabetic peripheral angiopathy without gangrene, without long-term current use of insulin E11.51 ; Benign essential HTN I10 ; BMI 40.0-44.9, adult Z68.41 ; Mild single current episode of major depressive disorder F32.0 ; OAB (overactive bladder) N32.81 ; Degenerative arthritis of knee M17.9 and GERD (gastroesophageal reflux disease) K21.9 [address] [id number] [place] [address] Aug, Joint pain and swelling due to Lyme disease A69.20 [place] [address] [address] Jun, [address] [address] May, 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 ; Benign essential HTN I10 ; 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 ; Body mass index (BMI) of 40.0-44.9 in adult Z68.41 and Morbid (severe) obesity due to excess calories E66.01 [address] [id number] [place] [address] May, Encounter for immunization Z23 [address] [address] May, 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 [address] [id number] [place] [address] Mar, Mild single current episode of major depressive disorder F32.0 [address] [id number] [place] [address] Mar, Joint pain and swelling due to Lyme disease A69.[address] [address] Feb, Izzy infection B37.9 [place] [id number] [place] [address] Jan, Insect bite (nonvenomous) of abdominal wall, initial encounter S30.861A and Joint pain and swelling due to Lyme disease A69.20 [place] [id number] [place] [address] Jan, [place] [id number] [place] [address] 16 Sep, 2016 Mild single current episode of major depressive disorder F32.0 and 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 [place] [id number] [place] [address] 13 Sep, 2016 Controlled restless leg syndrome G25.81 and Cramp of both lower extremities R25.2 [place] [id number] [place] [address] Aug, 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 ; Controlled restless leg syndrome G25.81 ; SI (stress incontinence), female N39.3 ; Benign essential HTN I10 ; 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 ; GERD (gastroesophageal reflux disease) K21.9 ; Screening cholesterol level Z13.220 and Mild single current episode of major depressive disorder F32.0 [place] [id number] [place] [address] Aug, [place] [id number] [place] [address] May, [place] [id number] [place] [address] May, Encounter for immunization Z23 [place] [id number] [place] [address] Apr, [place] [id number] [place] [address] Apr, [place] [id number] [place] [address] Apr, SAMANTHA (secretory otitis media), right H65.91 ; 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 ; Controlled restless leg syndrome G25.81 ; Edema extremities R60.0 ; SI (stress incontinence), female N39.3 ; Benign essential HTN I10 ; Degenerative arthritis of knee M17.9 and Major depressive disorder with single episode, remission status unspecified F32.9 [facility] [id number] [place] [address] Apr, OME (otitis media with effusion), right H65.91 [facility] [id number] [place] [address] Mar, [place] [id number] [place] [address] Mar, 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 ; Controlled restless leg syndrome G25.81 ; SI (stress incontinence), female N39.3 ; Benign essential HTN I10 ; GERD (gastroesophageal reflux disease) K21.9 ; Knee pain M25.569 and Major depressive disorder with single episode, remission status unspecified F32.9 [place] [id number] [place] [address] Mar, [place] [id number] [place] [address] Mar, [place] [id number] [place] [address] Jan, Pre-op exam Z01.818 [place] [id number] [place] [address] Oct, Urinary tract infection N39.0 ; Benign essential HTN I10 ; Controlled restless leg syndrome G25.81 ; Edema extremities R60.0 ; Degenerative arthritis of knee M17.9 and GERD (gastroesophageal reflux disease) K21.9 [facility] [id number] [place] [address] Oct, Izzy albicans infection B37.9 [facility] [id number] [place] [address] Sep, [place] [id number] [place] [address] Sep, UTI (urinary tract infection) N39.0 ; Benign essential HTN I10 ; 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 ; Controlled restless leg syndrome G25.81 ; Edema extremities R60.0 ; SI (stress incontinence), female N39.3 and 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 [place] [id number] [place] [address] 12 Sep, 2015 UTI (urinary tract infection) N39.0 [place] [id number] [place] [address] Aug, Pre-op evaluation Z01.818 [place] [id number] [place] [address] Aug, [place] [id number] [place] [address] Aug, [place] [id number] [place] [address] Jul, Right hip pain M25.551 ; 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 and Knee pain M25.569 [place] [id number] [place] [address] Jul, [place] [id number] [place] [address] Jun, Knee pain M25.569 ; 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 and Degenerative arthritis of knee M17.9 [place] [id number] [place] [address] Jun, [place] [id number] [place] [address] Apr, Diabetes mellitus 250.00 ; Influenza vaccine administered V04.81 ; Incontinence 788.30 ; Restless legs syndrome 333.94 ; Sciatica 724.3 ; Essential hypertension, benign 401.1 ; Edema 782.3 and Depression (emotion) 311 [facility] [id number] [place] [address] Mar, Pain in joint, lower leg 719.46 and Sciatica 724.3 [facility] [id number] [place] [address] Mar, [facility] [id number] [place] [address] Feb, Pain in joint, site unspecified 719.40 ; Other urinary incontinence 788.39 ; Pain in joint, lower leg 719.46 ; Edema 782.3 ; Sciatica 724.3 ; Essential hypertension, benign 401.1 ; Depression 311 ; Diabetes mellitus 250.00 ; Incontinence 788.30 and Restless legs syndrome 333.94 [facility] [id number] [place] [address] Feb, [facility] [id number] [place] [address] Nov, [facility] [id number] [place] [address] Nov, [facility] [id number] [place] [address] Oct, [facility] [id number] [place] [address] Oct, [facility] [id number] [place] [address] Aug, [facility] [id number] [place] [address] Aug, [facility] [id number] [place] [address] Aug, [facility] [id number] [place] [address] Aug, [facility] [place] [facility] [address] [id number] [place] [address] Aug, [facility] [place] [facility] [address] [id number] [place] [address] Aug, [facility] [place] [facility] [address] [id number] [place] [address] Jun, [facility] [place] [facility] [address] [id number] [place] [address] Jun, [facility] [place] [facility] [address] [id number] [place] [address] Jun, [facility] [place] [facility] [address] [id number] [place] [address] Jun, [facility] [place] [facility] [address] [id number] [place] [address] Jun, [facility] [place] [facility] [address] [id number] [place] [address] Jun, [facility] [place] [facility] [address] [id number] [place] [address] May, [facility] [place] [facility] [address] [id number] [place] [address] May, [facility] [place] [facility] [address] [id number] [place] [address] May, [facility] [place] [facility] [address] [id number] [place] [address] 16 May, 2014 [facility] [place] [facility] [address] [id number] [place] [address] 22 Apr, 2014 [facility] [place] [facility] [address] [id number] [place] [address] 22 Apr, 2014 [facility] [place] [facility] [address] [id number] [place] [address] 17 Apr, 2014 [facility] [place] [facility] [address] [id number] [place] [address] Apr, [facility] [place] [facility] [address] [id number] [place] [address] Mar, [facility] [place] [facility] [address] [id number] [place] [address] Mar, [facility] [place] [facility] [address] [id number] [place] [address] Mar, [facility] [place] [facility] [address] [id number] [place] [address] Mar, [facility] [place] [facility] [address] [id number] [place] [address] Mar, [facility] [place] [facility] [address] [id number] [place] [address] Mar, [facility] [place] [facility] [address] [id number] [place] [address] Feb, [facility] [place] [facility] [address] [id number] [place] [address] Feb, [facility] [place] [facility] [address] [id number] [place] [address] Jan, [facility] [place] [facility] [address] [id number] [place] [address] Jan, [facility] [place] [facility] [address] [id number] [place] [address] Jan, [facility] [place] [facility] [address] [id number] [place] [address] Jan, [facility] [place] [facility] [address] [id number] [place] [address] December, [facility] [place] [facility] [address] [id number] [place] [address] December, [facility] [place] [facility] [address] [id number] [place] [address] December, [facility] [place] [facility] [address] [id number] [place] [address] December, [facility] [place] [facility] [address] [id number] [place] [address] December, [facility] [place] [facility] [address] [id number] [place] [address] December, [facility] [place] [facility] [address] [id number] [place] [address] December, [facility] [place] [facility] [address] [id number] [place] [address] December, [facility] [place] [facility] [address] [id number] [place] [address] Nov, [facility] [place] [facility] [address] [id number] [place] [address] Nov, [facility] [place] [facility] [address] [id number] [place] [address] Nov, [facility] [place] [facility] [address] [id number] [place] [address] Nov, [facility] [place] [facility] [address] [id number] [place] [address] Oct, [facility] [place] [facility] [address] [id number] [place] [address] Oct, [facility] [place] [facility] [address] [id number] [place] [address] Oct, [facility] [place] [facility] [address] [id number] [place] [address] Oct, [facility] [place] [facility] [address] [id number] [place] [address] Oct, [facility] [place] [facility] [address] [id number] [place] [address] Oct, [facility] [place] [facility] [address] [id number] [place] [address] Oct, [facility] [address] [id number] [place] [address] Oct, [facility] [place] [facility] [address] [id number] [place] [address] Sep, [facility] [place] [facility] [address] [id number] [place] [address] Sep, [facility] [place] [facility] [address] [id number] [place] [address] Sep, [facility] [place] [facility] [address] [id number] [place] [address] Sep, [facility] [place] [facility] [address] [id number] [place] [address] Sep, [facility] [place] [facility] [address] [id number] [place] [address] Aug, [facility] [place] [facility] [address] [id number] [place] [address] Aug, [facility] [place] [facility] [address] [id number] [place] [address] Jul, [facility] [place] [facility] [address] [id number] [place] [address] Jul, [facility] [place] [facility] [address] [id number] [place] [address] Jul, [facility] [place] [facility] [address] [id number] [place] [address] Jul, [facility] [place] [facility] [address] [id number] [place] [address] Jul, [facility] [place] [facility] [address] [id number] [place] [address] Jul, [facility] [place] [facility] [address] [id number] [place] [address] Jul, [facility] [place] [facility] [address] [id number] [place] [address] Jun, [facility] [place] [facility] [address] [id number] [place] [address] Jun, [facility] [place] [facility] [address] [id number] [place] [address] Jun, [facility] [place] [facility] [address] [id number] [place] [address] Jun, [facility] [place] [facility] [address] [id number] [place] [address] Jun, [facility] [place] [facility] [address] [id number] [place] [address] Jun, [facility] [place] [facility] [address] [id number] [place] [address] Jun, [facility] [place] [facility] [address] [id number], [place] [address] Jun, [facility] [place] [facility] [address] [id number] [place] [address] Jun, [facility] [place] [facility] [address] [id number], [place] [address] Jun, [facility] [place] [facility] [address] [id number], [place] [address] Jun, [facility] [place] [facility] [address] [id number], [place] [address] Jun, [facility] [place] [facility] [address] [id number], [place] [address] Jun, [facility] [place] [facility] [address] [id number], [place] [address] May, [facility] [place] [facility] [address] [id number], [place] [address] May, [facility] [place] [facility] [address] [id number], [place] [address] 18 May, 2013 [facility] [place] [facility] [address] [id number] [place] [address] 18 May, 2013 [facility] [place] [facility] [address] [id number] [place] [address] May, [facility] [place] [facility] [address] [id number] [place] [address] 11 May, 2013 [facility] [place] [facility] [address] [id number] [place] [address] 10 May, 2013 [facility] [place] [facility] [address] [id number] [place] [address] 10 May, 2013 [facility] [place] [facility] [address] [id number] [place] [address] May, [facility] [place] [facility] [address] [id number] [place] [address] 23 Apr, 2013 [facility] [place] [facility] [address] [id number] [place] [address] 21 Apr, 2013 [facility] [place] [facility] [address] [id number] [place] [address] Apr, [facility] [place] [facility] [address] [id number] [place] [address] 09 Apr, 2013 [facility] [place] [facility] [address] [id number], [place] [address] 15 Mar, 2013 [facility] [place] [facility] [address] [id number], [place] [address] 14 Mar, 2013 [facility] [place] [facility] [address] [id number] [place] [address] Mar, [facility] [place] [facility] [address] [id number], [place] [address] Jan, [facility] [place] [facility] [address] [id number] [place] [address] Jan, [facility] [place] [facility] [address] [id number] [place] [address] 04 Jan, 2013 [facility] [address] [id number] [place] [address] Jan, [facility] [place] [facility] [address] [id number] [place] [address] December, [facility] [address] [id number] [place] [address] Nov, [facility] [place] [facility] [address] [id number] [place] [address] Nov, [facility] [address] [id number] [place] [address] Sep, [facility] [address] [id number] [place] [address] Sep, [facility] [address] [id number] [place] [address] Sep, [facility] [address] [id number] [place] [address] Aug, [facility] [address] [id number] [place] [address] Aug, [facility] [address] [id number] [place] [address] 17 Aug, 2012 [facility] [address] [id number] [place] [address] Aug, [facility] [address] [id number] [place] [address] 16 Aug, 2012 [facility] [place] [facility] [address] [id number] [place] [address] 15 Aug, [address] [facility] [place] [facility] [address] [id number] [place] [address] 04 Aug, 2012 [facility] [place] [facility] [address] [id number] [place] [address] Jul, [facility] [place] [facility] [address] [id number] [place] [address] Jul, [facility] [place] [facility] [address] [id number] [place] [address] Jun, [facility] [place] [facility] [address] [facility] [id number] [place] [address] Jun, [facility] [place] [facility] [address] [id number] [place] [address] May, [facility] [place] [facility] [address] [id number] [place] [address] May, [facility] [place] [facility] [address] [id number] [place] [address] May, [facility] [place] [facility] [address] [id number] [place] [address] May, [facility] [place] [facility] [address] [id number], [place] [address] Apr, [facility] [place] [facility] [address] [id number] [place] [address] 24 Apr, 2012 [facility] [place] [facility] [address] [id number] [place] [address] 21 Apr, 2012 [facility] [place] [facility] [address] [id number], [place] [address] 20 Apr, 2012 [facility] [place] [facility] [address] [id number], [place] [address] 20 Apr, 2012 [facility] [place] [facility] [address] [id number] [place] [address] 19 Apr, 2012 [facility] [place] [facility] [address] [facility] [id number], [place] [address] 12 Apr, 2012 [facility] [place] [facility] [address] [facility] [id number], [place] [address] Mar, [facility] [place] [facility] [id number], [place] [address] December, [facility] [id number], [place] [address] December, [facility] [id number], [place] [address] December, [facility] [id number], [place] [address] 10 Sep, 2011 [facility] [id number], [place] [address] Sep, [facility] [id number] [place] [address] Aug, [facility] [id number], [place] [address] Aug, [facility] [id number], [place] [address] Aug, [facility] [id number], [place] [address] Jun, [facility] [id number], [place] [address] Jun, [facility] [id number], [place] [address] Jun, [facility] [id number], [place] [address] Jun, [facility] [id number], [place] [address] Mar, [facility] [address] [id number] [address] Jan, [facility] [id number], [place] [address] December, IMMUNIZATIONS No Known Immunizations SOCIAL HISTORY Never Assessed REASON FOR VISIT Medication question PLAN OF CARE VITAL SIGNS MEDICATIONS Medication Instructions Dosage Frequency Start Date End Date Duration Status MetFORMIN HCl ER 500 mg Orally 2 times a day TAKE ONE TABLET BY MOUTH TWICE DAILY 12h 90 days Active RESULTS No Results PROCEDURES No [...]
--- OUTSIDE RECORDS SUMMARY | 2019-03-05 10:59 | XMS REPORT ---
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
--- OUTSIDE RECORDS SUMMARY | 2019-03-05 10:59 | XMS REPORT ---
Author AARON Santoyo [facility] [employer] Address Unknown Phone Unavailable Care Team Providers Care Round Cutter Operator Name Role Phone AARON DWYER CP Unavailable [...] Controlled restless leg syndrome G25.81 Active Medications Medication Code System Code Instructions Start Date End Date Status Dosage Venlafaxine HCl ER [facility] [address]-57 75 MG Orally Once a day 1 capsule with food Accupril [facility] [address]-55 20 MG Orally Once a day 1 tablet Results No Known Results Summary Purpose [employer]Clinical[employer] Submission
--- OUTSIDE RECORDS SUMMARY | 2019-03-05 10:59 | XMS REPORT ---
Author Author AARON Martin Organization [facility] Address [address] [place] [address] Care Team Providers Care Linen Room Houseperson Name Role Phone AARON Martin Unavailable PROBLEMS Type Condition ICD9-CM Code VOO75-JN Code Onset Dates Condition Status SNOMED Code Problem Type 2 diabetes mellitus with diabetic peripheral angiopathy without gangrene, without long-term current use of insulin E11.51 Active 898654327 Problem Controlled restless leg syndrome G25.81 Active 40721658 Problem Benign essential HTN I10 Active 2602360 Problem OAB (overactive bladder) N32.81 Active 427072988 Problem Body mass index (BMI) of 40.0-44.9 in adult Z68.41 Active 339067420 Problem GERD (gastroesophageal reflux disease) K21.9 Active 383867505 Problem Degenerative arthritis of knee M17.9 Active 178386412 Problem Morbid (severe) obesity due to excess calories E66.01 Active 265246770 Problem Mild single current episode of major depressive disorder F32.0 Active 40638216 ALLERGIES Substance Reaction Event Type Date Status Codeine Unknown Non Drug Allergy Jan, Active ENCOUNTERS Encounter Location Date Diagnosis [facility] [id number] [place] [address] Nov, [facility] [id number] [place] [address] Oct, [facility] [id number] [place] [address] Oct, Type 2 diabetes mellitus with diabetic peripheral angiopathy without gangrene, without long-term current use of insulin E11.51 and Controlled substance agreement signed Z79.899 [facility] [id number] [place] [address] Oct, Degenerative arthritis of knee M17.9 [place] [id number] [place] [address] Sep, Type 2 diabetes mellitus with diabetic peripheral angiopathy without gangrene, without long-term current use of insulin E11.51 ; Benign essential HTN I10 ; BMI 40.0-44.9, adult Z68.41 ; Mild single current episode of major depressive disorder F32.0 ; OAB (overactive bladder) N32.81 ; Degenerative arthritis of knee M17.9 and GERD (gastroesophageal reflux disease) K21.[address] [address] Aug, Joint pain and swelling due to Lyme disease A69.[address] [address] Jun, [address] [address] May, 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 ; Benign essential HTN I10 ; 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 ; Body mass index (BMI) of 40.0-44.9 in adult Z68.41 and Morbid (severe) obesity due to excess calories E66.01 [place] [id number] [place] [address] May, Encounter for immunization Z23 [address] [address] May, 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 [place] [id number] [place] [address] Mar, Mild single current episode of major depressive disorder F32.0 [place] [id number] [place] [address] Mar, Joint pain and swelling due to Lyme disease A69.[address] [address] Feb, Izzy infection B37.9 [place] [id number] [place] [address] Jan, Insect bite (nonvenomous) of abdominal wall, initial encounter S30.861A and Joint pain and swelling due to Lyme disease A69.20 [place] [id number] [place] [address] Jan, [place] [id number] [place] [address] Sep, Mild single current episode of major depressive disorder F32.0 and 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 [place] [id number] [place] [address] 13 Sep, 2016 Controlled restless leg syndrome G25.81 and Cramp of both lower extremities R25.2 [place] [id number] [place] [address] Aug, 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 ; Controlled restless leg syndrome G25.81 ; SI (stress incontinence), female N39.3 ; Benign essential HTN I10 ; 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 ; GERD (gastroesophageal reflux disease) K21.9 ; Screening cholesterol level Z13.220 and Mild single current episode of major depressive disorder F32.0 [place] [id number] [place] [address] Aug, [place] [id number] [place] [address] May, [address] [address] May, Encounter for immunization Z23 [place] [id number] [place] [address] Apr, [address] [address] Apr, [place] [address] [address] Apr, SAMANTHA (secretory otitis media), right H65.91 ; 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 ; Controlled restless leg syndrome G25.81 ; Edema extremities R60.0 ; SI (stress incontinence), female N39.3 ; Benign essential HTN I10 ; Degenerative arthritis of knee M17.9 and Major depressive disorder with single episode, remission status unspecified F32.9 [place] [id number] [place] [address] Apr, OME (otitis media with effusion), right H65.91 [place] [id number] [place] [address] Mar, [place] [id number] [place] [address] Mar, 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 ; Controlled restless leg syndrome G25.81 ; SI (stress incontinence), female N39.3 ; Benign essential HTN I10 ; GERD (gastroesophageal reflux disease) K21.9 ; Knee pain M25.569 and Major depressive disorder with single episode, remission status unspecified F32.9 [place] [address] [address] Mar, [place] [id number] [place] [address] Mar, [place] [id number] [place] [address] Jan, Pre-op exam Z01.818 [place] [id number] [place] [address] Oct, Urinary tract infection N39.0 ; Benign essential HTN I10 ; Controlled restless leg syndrome G25.81 ; Edema extremities R60.0 ; Degenerative arthritis of knee M17.9 and GERD (gastroesophageal reflux disease) K21.9 [place] [address] [address] Oct, Izzy albicans infection B37.9 [place] [address] [address] Sep, [place] [address] [place] [address] Sep, UTI (urinary tract infection) N39.0 ; Benign essential HTN I10 ; 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 ; Controlled restless leg syndrome G25.81 ; Edema extremities R60.0 ; SI (stress incontinence), female N39.3 and 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 [place] [address] [place] [address] 12 Sep, 2015 UTI (urinary tract infection) N39.0 [place] [id number] [place] [address] Aug, Pre-op evaluation Z01.818 [place] [id number] [place] [address] Aug, [place] [id number] [place] [address] Aug, [place] [address] [address] 14 Jul, 2015 Right hip pain M25.551 ; 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 and Knee pain M25.569 [place] [address] [address] 08 Jul, 2015 [place] [id number] [place] [address] 27 Jun, 2015 Knee pain M25.569 ; 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 and Degenerative arthritis of knee M17.9 [place] [id number] [place] [address] Jun, [facility] [id number] [place] [address] Apr, Diabetes mellitus 250.00 ; Influenza vaccine administered V04.81 ; Incontinence 788.30 ; Restless legs syndrome 333.94 ; Sciatica 724.3 ; Essential hypertension, benign 401.1 ; Edema 782.3 and Depression (emotion) 311 [facility] [id number] [place] [address] Mar, Pain in joint, lower leg 719.46 and Sciatica 724.3 [place] [address] [address] Mar, [place] [id number] [place] [address] Feb, Pain in joint, site unspecified 719.40 ; Other urinary incontinence 788.39 ; Pain in joint, lower leg 719.46 ; Edema 782.3 ; Sciatica 724.3 ; Essential hypertension, benign 401.1 ; Depression 311 ; Diabetes mellitus 250.00 ; Incontinence 788.30 and Restless legs syndrome 333.94 [facility] [id number] [place] [address] Feb, [facility] [id number] [place] [address] Nov, [facility] [id number] [place] [address] Nov, [facility] [id number] [place] [address] Oct, [facility] [id number] [place] [address] Oct, [facility] [id number] [place] [address] Aug, [facility] [id number] [place] [address] [place] [address] Aug, [facility] [place] [facility] [address] [id number] [place] [address] Aug, [facility] [place] [facility] [address] [id number] [place] [address] Aug, [facility] [place] [facility] [address] [id number] [place] [address] Aug, [facility] [place] [facility] [address] [id number] [place] [address] Aug, [facility] [place] [facility] [address] [id number] [place] [address] Jun, [facility] [place] [facility] [address] [id number] [place] [address] Jun, [facility] [place] [facility] [address] [id number] [place] [address] Jun, [facility] [place] [facility] [address] [id number] [place] [address] Jun, [facility] [place] [facility] [address] [id number] [place] [address] Jun, [facility] [place] [facility] [address] [id number] [place] [address] Jun, [facility] [place] [facility] [address] [id number] [place] [address] May, [facility] [place] [facility] [address] [id number] [address] 31 May, 2014 [facility] [place] [facility] [address] [id number], [place] [address] May, [facility] [place] [facility] [address] [id number] [address] May, [facility] [place] [facility] [address] [id number], [place] [address] Apr, [facility] [place] [facility] [address] [id number] [place] [address] Apr, [facility] [place] [facility] [address] [id number] [place] [address] Apr, [facility] [place] [facility] [address] [id number] [place] [address] Apr, [facility] [place] [facility] [address] [id number] [place] [address] Mar, [facility] [place] [facility] [address] [id number] [place] [address] Mar, [facility] [place] [facility] [address] [id number] [place] [address] Mar, [facility] [place] [facility] [address] [id number] [place] [address] Mar, [facility] [place] [facility] [address] [id number] [place] [address] Mar, [facility] [place] [facility] [address] [id number] [place] [address] Mar, [facility] [place] [facility] [address] [id number] [place] [address] Feb, [facility] [place] [facility] [address] [id number] [place] [address] Feb, [facility] [place] [facility] [address] [id number] [place] [address] Jan, [facility] [place] [facility] [address] [id number] [place] [address] Jan, [facility] [place] [facility] [address] [id number] [place] [address] Jan, [facility] [place] [facility] [address] [id number] [place] [address] Jan, [facility] [place] [facility] [address] [id number] [place] [address] December, [facility] [place] [facility] [address] [id number] [place] [address] December, [facility] [place] [facility] [address] [id number] [place] [address] December, [facility] [place] [facility] [address] [id number] [place] [address] December, [facility] [place] [facility] [address] [id number] [place] [address] December, [facility] [place] [facility] [address] [id number] [place] [address] December, [facility] [place] [facility] [address] [id number] [place] [address] December, [facility] [place] [facility] [address] [id number] [place] [address] December, [facility] [place] [facility] [address] [id number] [place] [address] Nov, [facility] [place] [facility] [address] [id number] [place] [address] Nov, [facility] [place] [facility] [address] [id number] [place] [address] Nov, [facility] [place] [facility] [address] [id number] [place] [address] Nov, [facility] [place] [facility] [address] [id number], [place] [address] Oct, [facility] [place] [facility] [address] [id number] [place] [address] Oct, [facility] [place] [facility] [address] [id number] [place] [address] Oct, [facility] [place] [facility] [address] [id number] [place] [address] Oct, [facility] [place] [facility] [address] [id number] [place] [address] 08 Oct, 2013 [facility] [place] [facility] [address] [id number] [place] [address] 08 Oct, 2013 [facility] [place] [facility] [address] [id number] [place] [address] Oct, [facility] [place] [facility] [address] [id number] [place] [address] Oct, [facility] [place] [facility] [address] [id number] [place] [address] Sep, [facility] [place] [facility] [address] [id number] [place] [address] Sep, [facility] [place] [facility] [address] [id number] [place] [address] Sep, [facility] [place] [facility] [address] [id number] [place] [address] Sep, [facility] [place] [facility] [address] [id number] [place] [address] Sep, [facility] [place] [facility] [address] [id number] [place] [address] Aug, [facility] [place] [facility] [address] [facility] [id number] [place] [address] Aug, [facility] [place] [facility] [address] [id number] [place] [address] Jul, [facility] [place] [facility] [address] [id number] [place] [address] Jul, [facility] [place] [facility] [address] [id number] [place] [address] Jul, [facility] [place] [facility] [address] [id number] [place] [address] Jul, [facility] [place] [facility] [address] [id number] [place] [address] Jul, [facility] [place] [facility] [address] [id number] [place] [address] Jul, [facility] [place] [facility] [address] [id number] [place] [address] Jul, [facility] [place] [facility] [address] [id number] [place] [address] Jun, [facility] [place] [facility] [address] [id number] [place] [address] Jun, [facility] [place] [facility] [address] [id number] [place] [address] Jun, [facility] [place] [facility] [address] [id number] [place] [address] Jun, [facility] [place] [facility] [address] [id number] [place] [address] Jun, [facility] [place] [facility] [address] [id number], [place] [address] Jun, [facility] [place] [facility] [address] [id number] [place] [address] Jun, [facility] [place] [facility] [address] [id number], [place] [address] Jun, [facility] [place] [facility] [address] [id number], [place] [address] Jun, [facility] [place] [facility] [address] [id number], [place] [address] Jun, [facility] [place] [facility] [address] [id number] [place] [address] Jun, [facility] [place] [facility] [address] [id number], [place] [address] Jun, [facility] [place] [facility] [address] [id number], [place] [address] Jun, [facility] [place] [facility] [address] [id number] [place] [address] 24 May, 2013 [facility] [place] [facility] [address] [id number] [place] [address] 24 May, 2013 [facility] [place] [facility] [address] [id number] [place] [address] 18 May, 2013 [facility] [place] [facility] [address] [id number] [place] [address] 18 May, 2013 [facility] [place] [facility] [address] [id number] [place] [address] 11 May, 2013 [facility] [place] [facility] [address] [id number] [place] [address] 11 May, 2013 [facility] [place] [facility] [address] [id number] [place] [address] 10 May, 2013 [facility] [place] [facility] [address] [id number] [place] [address] 10 May, 2013 [facility] [place] [facility] [address] [id number] [place] [address] 09 May, 2013 [facility] [place] [facility] [address] [id number] [place] [address] 23 Apr, 2013 [facility] [place] [facility] [address] [id number] [place] [address] 21 Apr, 2013 [facility] [place] [facility] [address] [id number] [place] [address] 11 Apr, 2013 [facility] [place] [facility] [address] [id number] [place] [address] 09 Apr, 2013 [facility] [place] [facility] [address] [id number] [place] [address] 15 Mar, 2013 [facility] [place] [facility] [address] [id number] [place] [address] 14 Mar, 2013 [facility] [place] [facility] [address] [id number] [place] [address] Mar, [facility] [place] [facility] [address] [id number] [place] [address] Jan, [facility] [address] [id number] [place] [address] Jan, [facility] [place] [facility] [address] [id number] [place] [address] Jan, [facility] [address] [id number] [place] [address] Jan, [facility] [address] [id number] [place] [address] December, [facility] [address] [id number] [place] [address] Nov, [facility] [address] [id number] [place] [address] Nov, [facility] [address] [id number] [place] [address] Sep, [facility] [address] [id number] [place] [address] Sep, [facility] [address] [id number] [place] [address] Sep, [facility] [address] [id number] [place] [address] Aug, [facility] [address] [id number] [place] [address] Aug, [facility] [place] [facility] [address] [id number] [place] [address] Aug, [facility] [place] [facility] [address] [id number] [place] [address] Aug, [facility] [place] [facility] [address] [id number] [place] [address] Aug, [facility] [place] [facility] [address] [id number], [place] [address] Aug, [facility] [place] [facility] [address] [id number] [place] [address] Aug, [facility] [place] [facility] [address] [id number] [place] [address] Jul, [facility] [place] [facility] [address] [id number] [place] [address] Jul, [facility] [place] [facility] [address] [id number] [place] [address] Jun, [facility] [place] [facility] [address] [id number] [place] [address] Jun, [facility] [place] [facility] [address] [id number] [place] [address] May, [facility] [place] [facility] [address] [id number] [place] [address] May, [facility] [place] [facility] [address] [id number] [place] [address] May, [facility] [place] [facility] [address] [id number] [place] [address] May, [facility] [place] [facility] [address] [id number] [place] [address] 26 Apr, 2012 [facility] [place] [facility] [address] [id number] [place] [address] 24 Apr, 2012 [facility] [place] [facility] [address] [id number] [place] [address] 21 Apr, 2012 [facility] [place] [facility] [address] [id number] [place] [address] 20 Apr, 2012 [facility] [place] [facility] [address] [id number] [place] [address] 20 Apr, 2012 [facility] [place] [facility] [address] [id number] [place] [address] 19 Apr, 2012 [facility] [place] [facility] [address] [id number] [place] [address] Apr, [facility] [address] [id number] [place] [address] Mar, [facility] [place] [facility] [address] [id number] [place] [address] December, [facility] [address] [id number] [place] [address] December, [facility] [place] [facility] [address] [id number] [place] [address] December, [facility] [address] [id number] [place] [address] Sep, [facility] [address] [id number] [place] [address] Sep, [facility] [address] [id number] [place] [address] Aug, [facility] [address] [id number] [place] [address] Aug, [facility] [address] [id number] [place] [address] Aug, [facility] [address] [id number] [place] [address] Jun, [facility] [address] [id number] [place] [address] Jun, [facility] [address] [id number] [place] [address] Jun, [facility] [place] [facility] [address] [id number] [place] [address] Jun, [facility] [place] [facility] [address] [id number] [place] [address] Mar, [facility] [place] [facility] [address] [id number] [place] [address] Jan, [facility] [address] [facility] [id number] [place] [address] December, IMMUNIZATIONS No Known Immunizations SOCIAL HISTORY Never Assessed REASON FOR VISIT Rash - One week ago was bit by 3 different ticks. She thought she got them out including the head but now has a rash around the area and is itchy. It is on r ight side of her abdomen. She has been cleaning it and using alcohol on it. He r joints in her arms, wrists, and shoulders are very achy. - Johnny VIEIRA PLAN OF CARE Activity Details Follow Up 2 Weeks Reason: VITAL SIGNS Height 64 in 2017-02-15 Weight 237.1 lbs 2017-02-15 Temperature 98.5 degrees Fahrenheit 2017-02-15 Heart Rate 68 bpm 2017-02-15 Respiratory Rate 18 2017-02-15 BMI 40.69 kg/m2 2017-02-15 Blood pressure systolic 130 mmHg 2017-02-15 Blood pressure diastolic 85 mmHg 2017-02-15 MEDICATIONS Medication Instructions Dosage Frequency Start Date End Date Duration Status Oxybutynin Chloride 5 mg Orally Twice a day 1 tablet 12h 30 Active Accupril 20 MG Orally Once a day 1 tablet 24h 30 Active Doxycycline Hyclate 100 mg Orally every 12 hrs 1 capsule 12h Jan, Feb, 10 days Active Oxycodone-Acetaminophen 5-325 MG Orally every 6 hrs 1 tablet as needed 6h Jan, Active Venlafaxine HCl ER 75 MG Orally Once a day TAKE ONE CAPSULE BY MOUTH DAILY WITH FOOD 24h 30 Active MetFORMIN HCl ER 500 MG Orally 2 times a day TAKE ONE TABLET 12h 30 Active Diclofenac Sodium 50 mg Orally 2 times a day 1 tablet with food or milk 12h 30 Active Tramadol HCl 50 MG Orally every 6 hrs 1 tablet as needed 6h Active RESULTS No Results PROCEDURES Procedure Date Ordered Result Body Site [facility] VISIT ESTABLISHED PATIENT February 15, 2017 INSTRUCTIONS MEDICATIONS ADMINISTERED No Known Medications MEDICAL (GENERAL) HISTORY Type Description Date Medical History Hypertension Medical History Neuropathy Medical History Diabetes Medical History Restless leg syndrome Surgical History carpal tunnel left hand. Surgical History Right Knee Surgery Surgical History Left Knee SOA 03/21/16 Hospitalization History Left Knee SOA 03/21/16
--- OUTSIDE RECORDS SUMMARY | 2019-03-05 10:59 | XMS REPORT ---
Author Author PAGE TORRES Organization [facility] Address [address] [place] [address] Care Team Providers Care Hotel Dining Room Cashier Name Role Phone ABELTORRES Hollis Unavailable PROBLEMS Type Condition ICD9-CM Code BQC98-OX Code Onset Dates Condition Status SNOMED Code Problem Type 2 diabetes mellitus with diabetic peripheral angiopathy without gangrene, without long-term current use of insulin E11.51 Active 843049629 Problem Controlled restless leg syndrome G25.81 Active 53884883 Problem Benign essential HTN I10 Active 9664168 Problem OAB (overactive bladder) N32.81 Active 934564346 Problem Body mass index (BMI) of 40.0-44.9 in adult Z68.41 Active 703032733 Problem GERD (gastroesophageal reflux disease) K21.9 Active 039983171 Problem Degenerative arthritis of knee M17.9 Active 968477170 Problem Morbid (severe) obesity due to excess calories E66.01 Active 720024798 Problem Mild single current episode of major depressive disorder F32.0 Active 60866605 ALLERGIES No Information ENCOUNTERS Encounter Location Date Diagnosis [facility] [id number] [address] Mar, [facility] [id number] [place] [address] Jan, Degenerative arthritis of knee M17.9 [facility] [id number] [place] [address] Jan, Herpes zoster without complication B02.9 and BMI 40.0-44.9, adult Z68.41 [facility] [address] [address] December, Degenerative arthritis of knee M17.9 [facility] [id number] [place] [address] Nov, Benign essential HTN I10 ; Type [...] Z68.41 and GERD (gastroesophageal reflux disease) K21.9 [place] [id number] [place] [address] Nov, [place] [address] [address] Oct, Degenerative arthritis of knee M17.9 [place] [id number] [place] [address] Oct, [place] [id number] [place] [address] Oct, Type 2 diabetes mellitus with diabetic peripheral angiopathy without gangrene, without long-term current use of insulin E11.51 and Controlled substance agreement signed Z79.899 [place] [id number] [place] [address] Oct, Degenerative arthritis of knee M17.9 [place] [id number] [place] [address] Sep, Type 2 diabetes mellitus with diabetic peripheral angiopathy without gangrene, without long-term current use of insulin E11.51 ; Benign essential HTN I10 ; BMI 40.0-44.9, adult Z68.41 ; Mild single current episode of major depressive disorder F32.0 ; OAB (overactive bladder) N32.81 ; Degenerative arthritis of knee M17.9 and GERD (gastroesophageal reflux disease) K21.9 [place] [id number] [place] [address] Aug, Joint pain and swelling due to Lyme disease A69.20 [place] [id number] [place] [address] Jun, [place] [id number] [place] [address] May, 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 ; Benign essential HTN I10 ; 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 ; Body mass index (BMI) of 40.0-44.9 in adult Z68.41 and Morbid (severe) obesity due to excess calories E66.01 [place] [id number] [place] [address] May, Encounter for immunization Z23 [place] [id number] [place] [address] May, 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 [place] [id number] [place] [address] Mar, Mild single current episode of major depressive disorder F32.0 [place] [id number] [place] [address] Mar, Joint pain and swelling due to Lyme disease A69.20 [place] [id number] [place] [address] Feb, Izzy infection B37.9 [place] [id number] [place] [address] Jan, Insect bite (nonvenomous) of abdominal wall, initial encounter S30.861A and Joint pain and swelling due to Lyme disease A69.20 [place] [id number] [place] [address] Jan, [place] [id number] [place] [address] Sep, Mild single current episode of major depressive disorder F32.0 and 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 [facility] [id number] [place] [address] 13 Sep, 2016 Controlled restless leg syndrome G25.81 and Cramp of both lower extremities R25.2 [facility] [id number] [address] Aug, 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 ; Controlled restless leg syndrome G25.81 ; SI (stress incontinence), female N39.3 ; Benign essential HTN I10 ; 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 ; GERD (gastroesophageal reflux disease) K21.9 ; Screening cholesterol level Z13.220 and Mild single current episode of major depressive disorder F32.0 [place] [id number] [place] [address] Aug, [place] [id number] [place] [address] May, [place] [id number] [place] [address] May, Encounter for immunization Z23 [place] [id number] [place] [address] Apr, [place] [id number] [place] [address] Apr, [place] [id number] [place] [address] 27 Apr, 2016 SAMANTHA (secretory otitis media), right H65.91 ; 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 ; Controlled restless leg syndrome G25.81 ; Edema extremities R60.0 ; SI (stress incontinence), female N39.3 ; Benign essential HTN I10 ; Degenerative arthritis of knee M17.9 and Major depressive disorder with single episode, remission status unspecified F32.9 [facility] [id number] [place] [address] 19 Apr, 2016 OME (otitis media with effusion), right H65.91 [place] [id number] [address] Mar, [place] [id number] [place] [address] Mar, 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 ; Controlled restless leg syndrome G25.81 ; SI (stress incontinence), female N39.3 ; Benign essential HTN I10 ; GERD (gastroesophageal reflux disease) K21.9 ; Knee pain M25.569 and Major depressive disorder with single episode, remission status unspecified F32.9 [place] [id number] [place] [address] Mar, [place] [id number] [place] [address] Mar, [place] [id number] [place] [address] Jan, Pre-op exam Z01.818 [place] [address] [address] Oct, Urinary tract infection N39.0 ; Benign essential HTN I10 ; Controlled restless leg syndrome G25.81 ; Edema extremities R60.0 ; Degenerative arthritis of knee M17.9 and GERD (gastroesophageal reflux disease) K21.9 [place] [id number] [address] Oct, Izzy albicans infection B37.9 [place] [address] [address] Sep, [place] [address] [place] [address] Sep, UTI (urinary tract infection) N39.0 ; Benign essential HTN I10 ; 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 ; Controlled restless leg syndrome G25.81 ; Edema extremities R60.0 ; SI (stress incontinence), female N39.3 and 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 [place] [address] [place] [address] 12 Sep, 2015 UTI (urinary tract infection) N39.0 [place] [id number] [place] [address] Aug, Pre-op evaluation Z01.818 [place] [id number] [place] [address] Aug, [place] [id number] [place] [address] Aug, [place] [address] [address] 14 Jul, 2015 Right hip pain M25.551 ; 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 and Knee pain M25.[address] [address] Jul, [place] [id number] [place] [address] Jun, Knee pain M25.569 ; 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 and Degenerative arthritis of knee M17.9 [id number] [place] [address] Jun, [place] [id number] [place] [address] 30 Apr, 2015 Diabetes mellitus 250.00 ; Influenza vaccine administered V04.81 ; Incontinence 788.30 ; Restless legs syndrome 333.94 ; Sciatica 724.3 ; Essential hypertension, benign 401.1 ; Edema 782.3 and Depression (emotion) 311 [place] [id number] [place] [address] 24 Mar, 2015 Pain in joint, lower leg 719.46 and Sciatica 724.3 [place] [id number] [place] [address] Mar, [facility] [address] [address] Feb, Pain in joint, site unspecified 719.40 ; Other urinary incontinence 788.39 ; Pain in joint, lower leg 719.46 ; Edema 782.3 ; Sciatica 724.3 ; Essential hypertension, benign 401.1 ; Depression 311 ; Diabetes mellitus 250.00 ; Incontinence 788.30 and Restless legs syndrome 333.94 [facility] [address] [address] Feb, [facility] [id number] [address] Nov, [facility] [address] [address] Nov, [facility] [id number] [place] [address] Oct, [facility] [address] [address] Oct, [facility] [address] [address] Aug, [facility] [address] [address] Aug, [facility] [address] [address] Aug, [facility] [id number] [address] Aug, [facility] [address] [address] Aug, [facility] [id number] [address] Aug, [facility] [id number] [address] Jun, [facility] [place] [facility] [address] [id number] [place] [address] Jun, [facility] [place] [facility] [address] [id number] [place] [address] Jun, [facility] [place] [facility] [address] [id number] [place] [address] Jun, [facility] [place] [facility] [address] [id number] [place] [address] Jun, [facility] [place] [facility] [address] [id number] [place] [address] Jun, [facility] [place] [facility] [address] [id number] [place] [address] May, [facility] [place] [facility] [address] [id number] [place] [address] May, [facility] [place] [facility] [address] [id number] [place] [address] May, [facility] [place] [facility] [address] [id number] [place] [address] May, [facility] [place] [facility] [address] [id number] [place] [address] Apr, [facility] [place] [facility] [address] [id number] [place] [address] Apr, [facility] [place] [facility] [address] [id number] [place] [address] 17 Apr, 2014 [facility] [place] [facility] [address] [id number] [place] [address] Apr, [facility] [place] [facility] [address] [id number] [place] [address] Mar, [facility] [place] [facility] [address] [id number] [place] [address] Mar, [facility] [place] [facility] [address] [id number] [place] [address] Mar, [facility] [place] [facility] [address] [id number] [place] [address] Mar, [facility] [place] [facility] [address] [id number] [place] [address] Mar, [facility] [place] [facility] [address] [id number] [place] [address] Mar, [facility] [place] [facility] [address] [id number] [place] [address] Feb, [facility] [place] [facility] [address] [id number] [place] [address] Feb, [facility] [place] [facility] [address] [id number] [place] [address] Jan, [facility] [place] [facility] [address] [id number] [place] [address] Jan, [facility] [place] [facility] [address] [id number] [place] [address] Jan, [facility] [place] [facility] [address] [id number] [place] [address] Jan, [facility] [place] [facility] [address] [id number] [place] [address] December, [facility] [place] [facility] [address] [id number] [place] [address] December, [facility] [place] [facility] [address] [id number] [place] [address] December, [facility] [place] [facility] [address] [id number] [place] [address] December, [facility] [place] [facility] [address] [id number] [place] [address] December, [facility] [place] [facility] [address] [id number] [place] [address] December, [facility] [place] [facility] [address] [id number] [place] [address] December, [facility] [place] [facility] [address] [id number] [place] [address] December, [facility] [place] [facility] [address] [id number] [place] [address] Nov, [facility] [place] [facility] [address] [id number] [place] [address] Nov, [facility] [place] [facility] [address] [id number] [place] [address] Nov, [facility] [place] [facility] [address] [id number] [place] [address] Nov, [facility] [place] [facility] [address] [id number] [place] [address] Oct, [facility] [place] [facility] [address] [id number] [place] [address] Oct, [facility] [place] [facility] [address] [id number] [place] [address] Oct, [facility] [place] [facility] [address] [id number] [place] [address] Oct, [facility] [place] [facility] [address] [id number] [place] [address] Oct, [facility] [place] [facility] [address] [id number] [place] [address] Oct, [facility] [place] [facility] [address] [id number] [place] [address] Oct, [facility] [place] [facility] [address] [id number] [place] [address] Oct, [facility] [place] [facility] [address] [id number] [place] [address] Sep, [facility] [place] [facility] [address] [id number] [place] [address] Sep, [facility] [address] [id number] [place] [address] Sep, [facility] [place] [facility] [address] [id number] [place] [address] Sep, [facility] [place] [facility] [address] [id number] [place] [address] Sep, [facility] [place] [facility] [address] [id number] [place] [address] Aug, [facility] [place] [facility] [address] [id number] [place] [address] Aug, [facility] [place] [facility] [address] [id number] [place] [address] Jul, [facility] [address] [id number] [place] [address] Jul, [facility] [place] [facility] [address] [id number] [place] [address] Jul, [facility] [place] [facility] [address] [id number] [place] [address] Jul, [facility] [place] [facility] [address] [facility] [id number] [place] [address] Jul, [facility] [place] [facility] [address] [id number] [place] [address] Jul, [facility] [place] [facility] [address] [id number] [place] [address] Jul, [facility] [place] [facility] [address] [id number] [place] [address] Jun, [facility] [place] [facility] [address] [id number] [place] [address] Jun, [facility] [place] [facility] [address] [id number] [place] [address] Jun, [facility] [place] [facility] [address] [id number] [place] [address] Jun, [facility] [place] [facility] [address] [id number] [place] [address] Jun, [facility] [place] [facility] [address] [id number] [place] [address] Jun, [facility] [place] [facility] [address] [id number] [place] [address] Jun, [facility] [place] [facility] [address] [id number] [place] [address] Jun, [facility] [place] [facility] [address] [id number] [place] [address] Jun, [facility] [place] [facility] [address] [id number] [place] [address] Jun, [facility] [place] [facility] [address] [id number] [place] [address] Jun, [facility] [place] [facility] [address] [id number] [place] [address] Jun, [facility] [place] [facility] [address] [id number] [place] [address] Jun, [facility] [place] [facility] [address] [id number] [place] [address] May, [facility] [place] [facility] [address] [id number] [place] [address] May, [facility] [place] [facility] [address] [id number] [place] [address] May, [facility] [place] [facility] [address] [id number] [place] [address] May, [facility] [place] [facility] [address] [id number] [place] [address] May, [facility] [place] [facility] [address] [id number] [place] [address] May, [facility] [place] [facility] [address] [id number] [place] [address] 10 May, 2013 [facility] [place] [facility] [address] [id number] [place] [address] 10 May, 2013 [facility] [place] [facility] [address] [id number] [place] [address] 09 May, 2013 [facility] [place] [facility] [address] [id number] [place] [address] 23 Apr, 2013 [facility] [place] [facility] [address] [id number] [place] [address] Apr, [facility] [place] [facility] [address] [id number] [place] [address] Apr, [facility] [place] [facility] [address] [id number] [place] [address] Apr, [facility] [place] [facility] [address] [id number] [place] [address] 15 Mar, 2013 [facility] [place] [facility] [address] [id number] [place] [address] 14 Mar, 2013 [facility] [place] [facility] [address] [id number] [address] Mar, [facility] [place] [facility] [address] [id number] [address] Jan, [facility] [place] [facility] [address] [id number] [place] [address] Jan, [facility] [place] [facility] [address] [id number] [place] [address] Jan, [facility] [place] [facility] [address] [id number] [place] [address] Jan, [facility] [place] [facility] [address] [id number] [place] [address] December, [facility] [place] [facility] [address] [id number] [place] [address] 11 Nov, 2012 [facility] [address] [id number] [place] [address] 10 Nov, 2012 [facility] [address] [id number] [place] [address] 19 Sep, 2012 [facility] [address] [id number] [place] [address] 13 Sep, 2012 [facility] [place] [facility] [address] [id number] [place] [address] Sep, [facility] [address] [id number] [place] [address] 29 Aug, 2012 [facility] [place] [facility] [address] [id number] [place] [address] 18 Aug, 2012 [facility] [address] [id number] [place] [address] 17 Aug, 2012 [facility] [address] [id number] [place] [address] 16 Aug, 2012 [facility] [place] [facility] [address] [id number] [place] [address] 16 Aug, 2012 [facility] [address] [id number] [place] [address] 15 Aug, 2012 [facility] [address] [id number] [place] [address] Aug, [facility] [place] [facility] [address] [id number] [place] [address] Jul, [facility] [place] [facility] [address] [id number] [place] [address] Jul, [facility] [place] [facility] [address] [id number] [place] [address] Jun, [facility] [place] [facility] [address] [id number] [place] [address] Jun, [facility] [place] [facility] [address] [id number] [place] [address] May, [facility] [place] [facility] [address] [id number] [place] [address] May, [facility] [place] [facility] [address] [id number] [place] [address] May, [facility] [place] [facility] [address] [id number] [place] [address] May, [facility] [address] [id number] [place] [address] Apr, [facility] [place] [facility] [address] [id number] [place] [address] 24 Apr, 2012 [facility] [address] [id number] [place] [address] 21 Apr, 2012 [facility] [address] [id number] [place] [address] 20 Apr, 2012 [facility] [place] [facility] [address] [id number] [place] [address] Apr, [facility] [place] [facility] [address] [id number] [place] [address] 19 Apr, 2012 [facility] [place] [facility] [address] [id number] [place] [address] Apr, [facility] [place] [facility] [address] [id number] [place] [address] Mar, [facility] [place] [facility] [address] [id number] [place] [address] December, [facility] [place] [facility] [address] [id number] [place] [address] December, [facility] [place] [facility] [address] [id number] [place] [address] December, [facility] [place] [facility] [address] [id number] [place] [address] 10 Sep, 2011 [facility] [id number] [address] Sep, [facility] [id number] [address] Aug, [facility] [id number] [address] Aug, [facility] [id number] [address] Aug, [facility] [id number] [address] Jun, [facility] [id number] [address] Jun, [facility] [id number] [address] Jun, [facility] [id number] [address] Jun, [facility] [id number] [address] Mar, [facility] [id number] [address] Jan, [facility] [address] [id number] [address] December, IMMUNIZATIONS No Known Immunizations SOCIAL HISTORY Never Assessed REASON FOR VISIT Lab: [facility] r[facility] PLAN OF CARE VITAL SIGNS MEDICATIONS Unknown Medications RESULTS Name Result Date Reference Range [facility] 2017-10-28 PROCEDURES No Known procedures INSTRUCTIONS MEDICATIONS ADMINISTERED No Known Medications MEDICAL (GENERAL) HISTORY Type Description Date Medical History Hypertension Medical History Neuropathy Medical History Diabetes Medical History Restless leg syndrome Surgical History carpal tunnel left hand. Surgical History Right Knee Surgery Surgical History Left Knee SOA 03/21/16 Hospitalization History Left Knee SOA 03/21/16
--- OUTSIDE RECORDS SUMMARY | 2019-03-05 10:59 | XMS REPORT ---
Author PHILIP Hyatt Organization [employer] Address Unknown Phone Unavailable Care Team Providers Care Court Administrator Name Role Phone PHILIP CATHERINE CP Unavailable Allergies No Known Allergies Problems Problem Type Condition Code Onset Dates Condition Status Problem 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 Active Problem SI (stress incontinence), female N39.3 Active Problem Benign essential HTN I10 Active Problem Right hip pain M25.551 Active Problem Knee pain M25.569 Active Problem GERD (gastroesophageal reflux disease) K21.9 Active Problem Controlled restless leg syndrome G25.81 Active Problem Edema extremities R60.0 Active Problem Degenerative arthritis of knee M17.9 Active Problem 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
--- OUTSIDE RECORDS SUMMARY | 2019-03-05 10:59 | XMS REPORT ---
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
--- OUTSIDE RECORDS SUMMARY | 2019-03-05 11:00 | XMS REPORT ---
Author PHILIP Hyatt [facility] [employer] Address Unknown Phone Unavailable Care Team Providers Care Tacking Stitch Remover Name Role Phone PIHLIP CATHERINE CP Unavailable Allergies, Adverse Reactions, Alerts Substance Reaction Event Type Codeine Info Not Available Non Drug Allergy Problems Problem Type Condition Code Onset Dates Condition Status Assessment Pre-op evaluation Z01.818 Active Problem Benign essential HTN I10 Active [...] Instructions Start Date End Date Status Dosage Diclofenac Sodium [facility] [address]-08 75 MG Orally 2 times a day November 10, 2014 Sep 22, 2015 1 tablet by Oral route 2 times per day PRN Requip [facility] [address]-23 2 MG Orally Once a day March 14, 2015 1 tablet 1 to 3 hours before bedtime MetFORMIN HCl ER [facility] [address]-79 500 MG Orally Once a day TAKE ONE TABLET BY MOUTH TWICE DAILY Accupril [facility] [address]-66 20 MG Orally Once a day 1 tablet Venlafaxine HCl ER [facility] [address]-68 75 MG Orally Once a day 1 capsule with food Hydrocodone-Acetaminophen [facility] [address]-51 5-325 MG Orally 3 times a day Jul 22, 2015 1 tablet as needed Procedures Procedure Coding System Code Date Office Visit, Est Pt., Level 3 CPT-4 97431 Sep 05, 2015 [facility] VISIT ESTABLISHED PATIENT CPT-4 G0467 Sep 05, 2015 Vital Signs Date/Time: Sep 05, 2015 Temperature 97.2 F Weight 256.5 lbs Height 64 in BMI 44.02 Index Blood Pressure Diastolic 80 mmHg Blood Pressure Systolic 118 mmHg Cardiac Monitoring Heart Rate 80 bpm Results No Known Results Summary Purpose [employer]Works Submission
--- OUTSIDE RECORDS SUMMARY | 2019-03-05 11:00 | XMS REPORT ---
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 Plastic Dolls Name Role Phone AARON DWYER CP Unavailable Allergies, Adverse Reactions, Alerts Substance Reaction Event Type Hydrocodone Info Not Available Non Drug Allergy Problems Problem Type Condition ICD-9 Code Onset Dates Condition Status Problem Sciatica 724.3 Active Problem Pain in joint, lower leg 719.46 Active Problem Edema 782.3 Active Problem Diabetes mellitus 250.00 Active Assessment Pain in joint, lower leg 719.46 Active Problem Incontinence 788.30 Active Assessment Sciatica 724.3 Active Problem Depression 311 Active Problem Need for prophylactic vaccination and inoculation, Influenza V04.81 Active Problem 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 Problem Restless legs syndrome 333.94 Active Problem Pain in joint, site unspecified 719.40 Active Problem Displacement of intervertebral disc, site unspecified, without myelopathy 722.2 Active Problem Disturbance of skin sensation 782.0 Active Problem Unspecified hereditary and idiopathic peripheral neuropathy 356.9 Active Problem Other urinary incontinence 788.39 Active Problem Unspecified pruritic disorder 698.9 Active Problem Essential hypertension, benign 401.1 Active Problem Pain in soft tissues of limb 729.5 Active Problem Cramp of limb 729.82 Active Problem Scabies 133.0 Active Problem Other dyspnea and respiratory abnormalities 786.09 Active Medications Medication Code System Code Instructions Start Date End Date Status Dosage [facility] [address]-13 5 mg Sep 03, 2014 1 tablet by Oral route 1 time per day Venlafaxine HCl [facility] [address]-43 75 MG Orally Once a day 1 capsule with food Diclofenac Sodium [facility] [address]-50 75 mg November 10, 2014 1 tablet by Oral route 2 times per day PRN Furosemide [facility] [address]-48 20 MG March 05, 2014 1 tablet by Oral route 1 time per day take with potassium metformin NDC 0 500 mg March 05, 2014 1 tablet by Oral route 2 times per day Baclofen [facility] [address]-22 10 MG Orally Three times a day as needed Apr 18, 2015 Jun 17, 2015 1 tablet with food or milk Requip [facility] [address]-34 2 MG Orally Once a day March 14, 2015 1 tablet 1 to 3 hours before bedtime Flexeril NDC 0 10 mg Jun 18, 2013 take 1 tablet (10 mg) by oral route 3 times per day PRN take prn muscle spasm Accupril [facility] [address]-13 20 MG Orally Once a day 1 tablet Procedures Procedure Coding System Code Date Office Visit, Est Pt., Level 4 CPT-4 73745 Apr 18, 2015 Vital Signs Date/Time: Apr 18, 2015 Temperature 98.1 F Weight 254.7 lbs Height 64 in BMI 43.71 Index Blood Pressure Diastolic 82 mmHg Blood Pressure Systolic 138 mmHg Cardiac Monitoring Heart Rate 84 bpm Results No Known Results Summary Purpose [employer]ClinicalWorks Submission
--- OUTSIDE RECORDS SUMMARY | 2019-03-05 11:00 | XMS REPORT ---
Author Author AARON DWYER Organization [facility] Address [address] [place] [address] Care Team Providers Care Line Therapist Name Role Phone ROSALBA DWYERNETTE Unavailable PROBLEMS Type Condition ICD9-CM Code [id number] Code Onset Dates Condition Status SNOMED Code Problem SI (stress incontinence), female N39.3 Active 64193462 Problem Controlled restless leg syndrome G25.81 Active 63703266 Problem Edema extremities R60.0 Active 048713616 Problem 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 Active 8825264 Problem Benign essential HTN I10 Active 0710045 Problem Mild single current episode of major depressive disorder F32.0 Active 33598943 Problem GERD (gastroesophageal reflux disease) K21.9 Active 325386617 Problem Knee pain M25.569 Active 37730817 Problem 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 3566381 Problem Right hip pain M25.551 Active 21242188 Problem Degenerative arthritis of knee M17.9 Active 434437214 ALLERGIES Substance Reaction Event Type Date Status Codeine Unknown Non Drug Allergy Sep, Active SOCIAL HISTORY Never Assessed PLAN OF CARE Activity Details Follow Up 2 Weeks, prn Reason: VITAL SIGNS Height 64 in 2016-10-08 Weight 235 lbs 2016-10-08 Temperature 98.0 degrees Fahrenheit 2016-10-08 Heart Rate 64 bpm 2016-10-08 Respiratory Rate 16 2016-10-08 BMI 40.33 kg/m2 2016-10-08 Blood pressure systolic 120 mmHg 2016-10-08 Blood pressure diastolic 80 mmHg 2016-10-08 MEDICATIONS Medication Instructions Dosage Frequency Start Date End Date Duration Status Venlafaxine HCl ER 75 MG Orally Once a day TAKE ONE CAPSULE BY MOUTH DAILY WITH FOOD 24h 30 Active Requip 2 MG Orally Once a day 1 tablet 24h Active Accupril 20 MG Orally Once a day 1 tablet 24h 30 Active Diclofenac Sodium 50 mg Orally 2 times a day 1 tablet with food or milk 12h 13 Sep, 2016 Oct, 30 day(s) Active Oxybutynin Chloride 5 mg Orally Twice a day 1 tablet 12h 30 Active MetFORMIN HCl ER 500 MG Orally 2 times a day TAKE ONE TABLET 12h 30 Active RESULTS No Results PROCEDURES Procedure Date Ordered Result Body Site [facility] VISIT ESTABLISHED PATIENT Oct 08, 2016 IMMUNIZATIONS No Known Immunizations MEDICAL (GENERAL) HISTORY Type Description Date Medical History Hypertension Medical History Neuropathy Medical History Diabetes Medical History Restless leg syndrome Surgical History carpal tunnel left hand. Surgical History Right Knee Surgery Surgical History Left Knee SOA 03/21/16 Hospitalization History Left Knee SOA 03/21/16
--- OUTSIDE RECORDS SUMMARY | 2019-03-05 11:00 | XMS REPORT ---
Author Author TORRES ABEL Organization [facility] Address [address] [place] [address] Care Team Providers Care Food Preparation Kitchen Aide Name Role Phone ABELTORRES Hollis Unavailable PROBLEMS Type Condition ICD9-CM Code OYH87-XB Code Onset Dates Condition Status SNOMED Code Problem Type 2 diabetes mellitus with diabetic peripheral angiopathy without gangrene, without long-term current use of insulin E11.51 Active 181544135 Problem Controlled restless leg syndrome G25.81 Active 16259234 Problem Benign essential HTN I10 Active 7481035 Problem OAB (overactive bladder) N32.81 Active 260379654 Problem Body mass index (BMI) of 40.0-44.9 in adult Z68.41 Active 734453764 Problem GERD (gastroesophageal reflux disease) K21.9 Active 606219890 Problem Degenerative arthritis of knee M17.9 Active 455115550 Problem Morbid (severe) obesity due to excess calories E66.01 Active 244409994 Problem Mild single current episode of major depressive disorder F32.0 Active 60230116 ALLERGIES Substance Reaction Event Type Date Status Codeine Unknown Non Drug Allergy Sep, Active ENCOUNTERS Encounter Location Date Diagnosis [facility] [id number] [address] Mar, [facility] [id number] [address] Jan, Degenerative arthritis of knee M17.9 [facility] [id number] [place] [address] Jan, Herpes zoster without complication B02.9 and BMI 40.0-44.9, adult Z68.41 [facility] [id number] [address] December, Degenerative arthritis of knee M17.9 [address] [place] [address] Nov, Benign essential HTN I10 ; Type [...] Z68.41 and GERD (gastroesophageal reflux disease) K21.9 [place] [id number] [place] [address] Nov, [place] [id number] [place] [address] Oct, Degenerative arthritis of knee M17.9 [place] [id number] [place] [address] Oct, [place] [id number] [place] [address] Oct, Type 2 diabetes mellitus with diabetic peripheral angiopathy without gangrene, without long-term current use of insulin E11.51 and Controlled substance agreement signed Z79.899 [place] [id number] [place] [address] Oct, Degenerative arthritis of knee M17.9 [place] [id number] [place] [address] Sep, Type 2 diabetes mellitus with diabetic peripheral angiopathy without gangrene, without long-term current use of insulin E11.51 ; Benign essential HTN I10 ; BMI 40.0-44.9, adult Z68.41 ; Mild single current episode of major depressive disorder F32.0 ; OAB (overactive bladder) N32.81 ; Degenerative arthritis of knee M17.9 and GERD (gastroesophageal reflux disease) K21.9 [place] [id number] [place] [address] Aug, Joint pain and swelling due to Lyme disease A69.20 [place] [id number] [place] [address] Jun, [place] [id number] [place] [address] May, 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 ; Benign essential HTN I10 ; 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 ; Body mass index (BMI) of 40.0-44.9 in adult Z68.41 and Morbid (severe) obesity due to excess calories E66.01 [id number] [place] [address] May, Encounter for immunization Z23 [address] [id number] [place] [address] May, 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 [place] [id number] [place] [address] Mar, Mild single current episode of major depressive disorder F32.0 [id number] [place] [address] Mar, Joint pain and swelling due to Lyme disease A69.20 [id number] [place] [address] Feb, Izzy infection B37.9 [id number] [place] [address] Jan, Insect bite (nonvenomous) of abdominal wall, initial encounter S30.861A and Joint pain and swelling due to Lyme disease A69.20 [place] [id number] [place] [address] Jan, [id number] [place] [address] Sep, Mild single current episode of major depressive disorder F32.0 and 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 [address] [place] [id number] [place] [address] Sep, Controlled restless leg syndrome G25.81 and Cramp of both lower extremities R25.2 [address] [id number] [place] [address] Aug, 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 ; Controlled restless leg syndrome G25.81 ; SI (stress incontinence), female N39.3 ; Benign essential HTN I10 ; 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 ; GERD (gastroesophageal reflux disease) K21.9 ; Screening cholesterol level Z13.220 and Mild single current episode of major depressive disorder F32.0 [address] [place] [address] [address] Aug, [place] [address] [address] May, [place] [address] [address] May, Encounter for immunization Z23 [place] [address] [address] Apr, [place] [id number] [place] [address] Apr, [place] [address] [address] Apr, SAMANTHA (secretory otitis media), right H65.91 ; 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 ; Controlled restless leg syndrome G25.81 ; Edema extremities R60.0 ; SI (stress incontinence), female N39.3 ; Benign essential HTN I10 ; Degenerative arthritis of knee M17.9 and Major depressive disorder with single episode, remission status unspecified F32.9 [address] [place] [address] [address] Apr, OME (otitis media with effusion), right H65.91 [facility] [address], [place] [address] Mar, [facility] [id number] [place] [address] Mar, 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 ; Controlled restless leg syndrome G25.81 ; SI (stress incontinence), female N39.3 ; Benign essential HTN I10 ; GERD (gastroesophageal reflux disease) K21.9 ; Knee pain M25.569 and Major depressive disorder with single episode, remission status unspecified F32.9 [address] [place] [address] [place] [address] Mar, [place] [id number] [place] [address] Mar, [place] [id number] [place] [address] Jan, Pre-op exam Z01.818 [place] [address] [place] [address] Oct, Urinary tract infection N39.0 ; Benign essential HTN I10 ; Controlled restless leg syndrome G25.81 ; Edema extremities R60.0 ; Degenerative arthritis of knee M17.9 and GERD (gastroesophageal reflux disease) K21.9 [address] [address], [place] [address] Oct, Izzy albicans infection B37.9 [facility] [address], [place] [address] Sep, [place] [address] [place] [address] Sep, UTI (urinary tract infection) N39.0 ; Benign essential HTN I10 ; 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 ; Controlled restless leg syndrome G25.81 ; Edema extremities R60.0 ; SI (stress incontinence), female N39.3 and 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 [place] [id number] [place] [address] 12 Sep, 2015 UTI (urinary tract infection) N39.0 [place] [id number] [place] [address] 11 Aug, 2015 Pre-op evaluation Z01.818 [place] [address] [address] Aug, [place] [id number] [place] [address] Aug, [address] [id number] [place] [address] 14 Jul, 2015 Right hip pain M25.551 ; 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 and Knee pain M25.569 [place] [id number] [place] [address] Jul, [place] [id number] [place] [address] Jun, Knee pain M25.569 ; 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 and Degenerative arthritis of knee M17.9 [id number] [place] [address] Jun, [place] [address] [address] 30 Apr, 2015 Diabetes mellitus 250.00 ; Influenza vaccine administered V04.81 ; Incontinence 788.30 ; Restless legs syndrome 333.94 ; Sciatica 724.3 ; Essential hypertension, benign 401.1 ; Edema 782.3 and Depression (emotion) 311 [place] [id number] [place] [address] 24 Mar, 2015 Pain in joint, lower leg 719.46 and Sciatica 724.3 [facility] [address], [place] [address] Mar, [facility] [address], [place] [address] Feb, Pain in joint, site unspecified 719.40 ; Other urinary incontinence 788.39 ; Pain in joint, lower leg 719.46 ; Edema 782.3 ; Sciatica 724.3 ; Essential hypertension, benign 401.1 ; Depression 311 ; Diabetes mellitus 250.00 ; Incontinence 788.30 and Restless legs syndrome 333.94 [facility] [address], [place] [address] Feb, [facility] [id number] [place] [address] Nov, [facility] [id number], [place] [address] Nov, [facility] [address], [place] [address] Oct, [facility] [address], [place] [address] Oct, [facility] [address], [place] [address] Aug, [facility] [address], [place] [address] Aug, [facility] [address], [place] [address] Aug, [facility] [address], [place] [address] Aug, [facility] [address], [place] [address] Aug, [facility] [address], [place] [address] Aug, [facility] [id number] [address] Jun, [facility] [place] [facility] [address] [id number] [place] [address] Jun, [facility] [place] [facility] [address] [id number] [place] [address] Jun, [facility] [place] [facility] [address] [id number] [place] [address] Jun, [facility] [place] [facility] [address] [id number] [place] [address] Jun, [facility] [place] [facility] [address] [id number] [place] [address] Jun, [facility] [place] [facility] [address] [id number] [place] [address] May, [facility] [place] [facility] [address] [id number] [place] [address] May, [facility] [place] [facility] [address] [id number] [place] [address] May, [facility] [place] [facility] [address] [id number] [place] [address] May, [facility] [place] [facility] [address] [id number] [place] [address] Apr, [facility] [place] [facility] [address] [id number] [place] [address] Apr, [facility] [place] [facility] [address] [id number] [place] [address] 17 Apr, 2014 [facility] [place] [facility] [address] [id number] [place] [address] Apr, [facility] [place] [facility] [address] [id number] [place] [address] Mar, [facility] [place] [facility] [address] [id number] [place] [address] Mar, [facility] [place] [facility] [address] [id number] [place] [address] Mar, [facility] [place] [facility] [address] [id number] [place] [address] Mar, [facility] [place] [facility] [address] [id number] [place] [address] Mar, [facility] [place] [facility] [address] [id number] [place] [address] Mar, [facility] [place] [facility] [address] [id number] [place] [address] Feb, [facility] [place] [facility] [address] [id number] [place] [address] Feb, [facility] [place] [facility] [address] [id number] [place] [address] Jan, [facility] [place] [facility] [address] [id number] [place] [address] Jan, [facility] [place] [facility] [address] [id number] [place] [address] Jan, [facility] [place] [facility] [address] [id number] [place] [address] Jan, [facility] [place] [facility] [address] [id number] [place] [address] December, [facility] [place] [facility] [address] [id number] [place] [address] December, [facility] [place] [facility] [address] [id number] [place] [address] December, [facility] [place] [facility] [address] [id number] [place] [address] December, [facility] [place] [facility] [address] [id number] [place] [address] December, [facility] [place] [facility] [address] [id number] [place] [address] December, [facility] [place] [facility] [address] [id number] [place] [address] December, [facility] [place] [facility] [address] [id number] [place] [address] December, [facility] [place] [facility] [address] [id number] [place] [address] Nov, [facility] [place] [facility] [address] [id number] [place] [address] Nov, [facility] [place] [facility] [address] [id number] [place] [address] Nov, [facility] [place] [facility] [address] [id number] [place] [address] Nov, [facility] [place] [facility] [address] [id number] [place] [address] Oct, [facility] [place] [facility] [address] [id number] [place] [address] Oct, [facility] [place] [facility] [address] [id number] [place] [address] Oct, [facility] [place] [facility] [address] [id number] [place] [address] Oct, [facility] [place] [facility] [address] [id number] [place] [address] Oct, [facility] [place] [facility] [address] [id number] [place] [address] Oct, [facility] [place] [facility] [address] [id number] [place] [address] Oct, [facility] [place] [facility] [address] [id number] [place] [address] Oct, [facility] [place] [facility] [address] [id number] [place] [address] Sep, [facility] [place] [facility] [address] [id number] [place] [address] Sep, [facility] [place] [facility] [address] [id number] [place] [address] Sep, [facility] [place] [facility] [address] [id number] [place] [address] Sep, [facility] [place] [facility] [address] [id number] [place] [address] Sep, [facility] [place] [facility] [address] [id number] [place] [address] Aug, [facility] [place] [facility] [address] [id number] [place] [address] Aug, [facility] [place] [facility] [address] [id number] [place] [address] Jul, [facility] [place] [facility] [address] [id number] [place] [address] Jul, [facility] [place] [facility] [address] [id number] [place] [address] Jul, [facility] [place] [facility] [address] [id number] [place] [address] Jul, [facility] [place] [facility] [address] [id number] [place] [address] Jul, [facility] [place] [facility] [address] [id number] [place] [address] Jul, [facility] [place] [facility] [address] [id number] [place] [address] Jul, [facility] [place] [facility] [address] [id number] [place] [address] Jun, [facility] [place] [facility] [address] [id number] [place] [address] Jun, [facility] [place] [facility] [address] [id number] [place] [address] Jun, [facility] [place] [facility] [address] [id number] [place] [address] Jun, [facility] [place] [facility] [address] [id number], [place] [address] Jun, [facility] [place] [facility] [address] [id number] [place] [address] Jun, [facility] [place] [facility] [address] [id number], [place] [address] Jun, [facility] [place] [facility] [address] [id number] [place] [address] Jun, [facility] [place] [facility] [address] [id number], [place] [address] Jun, [facility] [place] [facility] [address] [id number], [place] [address] Jun, [facility] [place] [facility] [address] [id number], [place] [address] Jun, [facility] [place] [facility] [address] [id number], [place] [address] Jun, [facility] [place] [facility] [address] [id number], [place] [address] Jun, [facility] [place] [facility] [address] [id number], [place] [address] May, [facility] [place] [facility] [address] [id number], [place] [address] 24 May, 2013 [facility] [place] [facility] [address] [id number], [place] [address] May, [facility] [place] [facility] [address] [id number], [place] [address] May, [facility] [place] [facility] [address] [id number], [place] [address] May, [facility] [place] [facility] [address] [id number] [place] [address] 11 May, 2013 [facility] [address] [id number] [place] [address] 10 May, 2013 [facility] [place] [facility] [address] [id number] [place] [address] 10 May, 2013 [facility] [address] [id number] [place] [address] 09 May, 2013 [facility] [place] [facility] [address] [id number] [place] [address] 23 Apr, 2013 [facility] [address] [id number] [place] [address] 21 Apr, 2013 [facility] [address] [id number] [place] [address] 11 Apr, 2013 [facility] [address] [id number] [place] [address] 09 Apr, 2013 [facility] [address] [id number] [place] [address] 15 Mar, 2013 [facility] [place] [facility] [address] [id number] [place] [address] 14 Mar, 2013 [facility] [address] [id number] [place] [address] Mar, [facility] [place] [facility] [address] [id number] [place] [address] Jan, [facility] [place] [facility] [address] [id number] [place] [address] Jan, [facility] [place] [facility] [address] [id number] [place] [address] 04 Jan, 2013 [facility] [place] [facility] [address] [id number] [place] [address] 03 Jan, 2013 [facility] [place] [facility] [address] [id number] [place] [address] December, [facility] [place] [facility] [address] [id number] [place] [address] Nov, [facility] [address] [id number] [place] [address] Nov, [facility] [place] [facility] [address] [id number] [place] [address] 19 Sep, 2012 [facility] [place] [facility] [address] [id number] [place] [address] Sep, [facility] [address] [id number] [place] [address] Sep, [facility] [place] [facility] [address] [id number] [place] [address] 29 Aug, 2012 [facility] [place] [facility] [address] [id number] [place] [address] 18 Aug, 2012 [facility] [address] [id number] [place] [address] 17 Aug, 2012 [facility] [address] [id number] [place] [address] Aug, [facility] [address] [id number] [place] [address] 16 Aug, 2012 [facility] [address] [id number] [place] [address] Aug, [facility] [place] [facility] [address] [id number] [place] [address] Aug, [facility] [place] [facility] [address] [id number] [place] [address] Jul, [facility] [place] [facility] [address] [id number] [place] [address] Jul, [facility] [place] [facility] [address] [id number] [place] [address] Jun, [facility] [place] [facility] [address] [id number] [place] [address] Jun, [facility] [address] [id number] [place] [address] May, [facility] [place] [facility] [address] [id number] [place] [address] May, [facility] [place] [facility] [address] [id number] [place] [address] May, [facility] [place] [facility] [address] [id number] [place] [address] May, [facility] [place] [facility] [id number] [place] [address], [place] [address] 26 Apr, 2012 [facility] [place] [facility] [address] [id number] [place] [address] 24 Apr, 2012 [facility] [address] [id number] [place] [address] 21 Apr, 2012 [facility] [place] [facility] [address] [id number] [place] [address] 20 Apr, 2012 [facility] [place] [facility] [address] [id number] [place] [address] 20 Apr, 2012 [facility] [place] [facility] [address] [id number] [place] [address] 19 Apr, 2012 [facility] [place] [facility] [address] [id number] [place] [address] 12 Apr, 2012 [facility] [place] [facility] [address] [id number] [address] Mar, [facility] [place] [facility] [address] [id number] [place] [address] December, [facility] [place] [facility] [address] [id number] [place] [address] December, [facility] [place] [facility] [address] [id number] [place] [address] December, [facility] [place] [facility] [id number] [address] 10 Sep, 2011 [facility] [id number] [address] Sep, [facility] [id number] [address] Aug, [facility] [id number] [address] Aug, [facility] [id number] [place] [address] Aug, [facility] [id number] [place] [address] Jun, [facility] [id number], [place] [address] Jun, [facility] [id number] [place] [address] Jun, [facility] [id number], [place] [address] Jun, [facility] [id number], [place] [address] Mar, [facility] [id number] [place] [address] Jan, [facility] [id number] [address] December, IMMUNIZATIONS No Known Immunizations SOCIAL HISTORY Never Assessed REASON FOR VISIT Diabetes f/u: christie chicas PLAN OF CARE Activity Details Follow Up 3 Months Reason:CHM/DM VITAL SIGNS Height 64 in 2017-10-03 Weight 247.7 lbs 2017-10-03 Temperature 97.7 degrees Fahrenheit 2017-10-03 Heart Rate 62 bpm 2017-10-03 Respiratory Rate 20 2017-10-03 BMI 42.51 kg/m2 2017-10-03 Blood pressure systolic 126 mmHg 2017-10-03 Blood pressure diastolic 76 mmHg 2017-10-03 MEDICATIONS Medication Instructions Dosage Frequency Start Date End Date Duration Status MetFORMIN HCl ER 500 mg Orally twice a day 1 tablet twice daily 12h May, 90 days Active Venlafaxine HCl ER 75 MG Orally Once a day TAKE ONE CAPSULE BY MOUTH DAILY WITH FOOD 24h 90 days Active Quinapril HCl 20 mg Orally Once a day TAKE ONE TABLET BY MOUTH ONCE DAILY 24h 90 days Active Oxycodone-Acetaminophen 5-325 MG Orally every 6 hrs 1 tablet as needed 6h Aug, 16 days Active Oxybutynin Chloride 5 mg Orally 2 times a day TAKE ONE TABLET BY MOUTH TWICE DAILY 12h 90 days Active RESULTS Name Result Date Reference Range A1C (IN HOUSE) 2017-10-03 A1C IN HOUSE 6.7 4.3 - 5.6 % Previous A1c 6.8 Lot [id number] Exp date 05/2019 MICROALBUMIN, URINE (IN HOUSE) 2017-10-03 MICROALBUMIN Normal Lot # [id number] Exp date 06/2018 Clarity clear Color yellow ALB 30 CRE 300 A:C (IN HOUSE) <30 Control + Control Lot # Exp date PROCEDURES Procedure Date Ordered Result Body Site MICROALBUMIN, SEMIQUANT Oct 03, 2017 [facility] VISIT ESTABLISHED PATIENT Oct 03, 2017 INSTRUCTIONS MEDICATIONS ADMINISTERED No Known Medications MEDICAL (GENERAL) HISTORY Type Description Date Medical History Hypertension Medical History Neuropathy Medical History Diabetes Medical History Restless leg syndrome Surgical History carpal tunnel left hand. Surgical History Right Knee Surgery Surgical History Left Knee SOA 03/21/16 Hospitalization History Left Knee SOA 03/21/16
--- OUTSIDE RECORDS SUMMARY | 2019-03-05 11:01 | XMS REPORT ---
Author Author PAGE TORRES Organization [facility] Address [address] [place] [address] Care Team Providers Care Master Yacht Name Role Phone ABELTORRES Hollis Unavailable PROBLEMS Type Condition ICD9-CM Code [id number] Code Onset Dates Condition Status SNOMED Code Problem Type 2 diabetes mellitus with diabetic peripheral angiopathy without gangrene, without long-term current use of insulin E11.51 Active 377451858 Problem Controlled restless leg syndrome G25.81 Active 38119074 Problem Benign essential HTN I10 Active 7418975 Problem OAB (overactive bladder) N32.81 Active 713772816 Problem Body mass index (BMI) of 40.0-44.9 in adult Z68.41 Active 351593982 Problem GERD (gastroesophageal reflux disease) K21.9 Active 981685456 Problem Degenerative arthritis of knee M17.9 Active 056682452 Problem Morbid (severe) obesity due to excess calories E66.01 Active 465873778 Problem Mild single current episode of major depressive disorder F32.0 Active [id number] ALLERGIES No Information ENCOUNTERS Encounter Location Date Diagnosis [facility] [address], [place] [address] Mar, [facility] [id number] [place] [address] Jan, Degenerative arthritis of knee M17.9 [facility] [id number] [place] [address] Jan, Herpes zoster without complication B02.9 and BMI 40.0-44.9, adult Z68.41 [facility] [address], [place] [address] December, Degenerative arthritis of knee M17.9 [facility] [id number] [place] [address] Nov, Benign essential HTN I10 ; Type [...] Z68.41 and GERD (gastroesophageal reflux disease) K21.9 [place] [facility] [id number] [place] [address] Nov, [place] [address] [address] Oct, Degenerative arthritis of knee M17.9 [place] [id number] [place] [address] Oct, [place] [id number] [place] [address] Oct, Type 2 diabetes mellitus with diabetic peripheral angiopathy without gangrene, without long-term current use of insulin E11.51 and Controlled substance agreement signed Z79.899 [place] [id number] [place] [address] Oct, Degenerative arthritis of knee M17.9 [facility] [facility] [id number] [place] [address] Sep, Type 2 diabetes mellitus with diabetic peripheral angiopathy without gangrene, without long-term current use of insulin E11.51 ; Benign essential HTN I10 ; BMI 40.0-44.9, adult Z68.41 ; Mild single current episode of major depressive disorder F32.0 ; OAB (overactive bladder) N32.81 ; Degenerative arthritis of knee M17.9 and GERD (gastroesophageal reflux disease) K21.9 [place] [id number] [place] [address] Aug, Joint pain and swelling due to Lyme disease A69.20 [place] [id number] [place] [address] Jun, [place] [id number] [place] [address] May, 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 ; Benign essential HTN I10 ; 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 ; Body mass index (BMI) of 40.0-44.9 in adult Z68.41 and Morbid (severe) obesity due to excess calories E66.01 [place] [id number] [place] [address] May, Encounter for immunization Z23 [place] [id number] [place] [address] May, 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 [facility] [facility] [id number] [place] [address] Mar, Mild single current episode of major depressive disorder F32.0 [facility] [id number] [place] [address] Mar, Joint pain and swelling due to Lyme disease A69.20 [place] [id number] [place] [address] Feb, Izzy infection B37.9 [facility] [facility] [id number] [place] [address] Jan, Insect bite (nonvenomous) of abdominal wall, initial encounter S30.861A and Joint pain and swelling due to Lyme disease A69.20 [place] [id number] [place] [address] Jan, [place] [id number] [place] [address] Sep, Mild single current episode of major depressive disorder F32.0 and 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 [facility] [address] [place] [address] 13 Sep, 2016 Controlled restless leg syndrome G25.81 and Cramp of both lower extremities R25.2 [facility] [id number], [place] [address] Aug, 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 ; Controlled restless leg syndrome G25.81 ; SI (stress incontinence), female N39.3 ; Benign essential HTN I10 ; 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 ; GERD (gastroesophageal reflux disease) K21.9 ; Screening cholesterol level Z13.220 and Mild single current episode of major depressive disorder F32.0 [place] [id number] [place] [address] Aug, [place] [id number] [place] [address] May, [place] [id number] [place] [address] May, Encounter for immunization Z23 [place] [id number] [place] [address] Apr, [place] [id number] [place] [address] Apr, [place] [id number] [place] [address] 27 Apr, 2016 SAMANTHA (secretory otitis media), right H65.91 ; 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 ; Controlled restless leg syndrome G25.81 ; Edema extremities R60.0 ; SI (stress incontinence), female N39.3 ; Benign essential HTN I10 ; Degenerative arthritis of knee M17.9 and Major depressive disorder with single episode, remission status unspecified F32.9 [facility] [id number] [place] [address] 19 Apr, 2016 OME (otitis media with effusion), right H65.91 [place] [address], [place] [address] Mar, [facility] [id number] [place] [address] Mar, 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 ; Controlled restless leg syndrome G25.81 ; SI (stress incontinence), female N39.3 ; Benign essential HTN I10 ; GERD (gastroesophageal reflux disease) K21.9 ; Knee pain M25.569 and Major depressive disorder with single episode, remission status unspecified F32.9 [place] [id number] [place] [address] Mar, [place] [id number] [place] [address] Mar, [facility] [id number] [place] [address] Jan, Pre-op exam Z01.818 [place] [address], [place] [address] Oct, Urinary tract infection N39.0 ; Benign essential HTN I10 ; Controlled restless leg syndrome G25.81 ; Edema extremities R60.0 ; Degenerative arthritis of knee M17.9 and GERD (gastroesophageal reflux disease) K21.9 [place] [id number] [address] Oct, Izzy albicans infection B37.9 [place] [address], [place] [address] Sep, [place] [address] [place] [address] Sep, UTI (urinary tract infection) N39.0 ; Benign essential HTN I10 ; 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 ; Controlled restless leg syndrome G25.81 ; Edema extremities R60.0 ; SI (stress incontinence), female N39.3 and 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 [place] [address] [place] [address] 12 Sep, 2015 UTI (urinary tract infection) N39.0 [place] [id number] [place] [address] Aug, Pre-op evaluation Z01.818 [place] [id number] [place] [address] Aug, [place] [id number] [place] [address] Aug, [place] [address] [address] 14 Jul, 2015 Right hip pain M25.551 ; 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 and Knee pain M25.[address] [address] Jul, [place] [id number] [place] [address] Jun, Knee pain M25.569 ; 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 and Degenerative arthritis of knee M17.9 [id number] [place] [address] Jun, [place] [id number] [place] [address] 30 Apr, 2015 Diabetes mellitus 250.00 ; Influenza vaccine administered V04.81 ; Incontinence 788.30 ; Restless legs syndrome 333.94 ; Sciatica 724.3 ; Essential hypertension, benign 401.1 ; Edema 782.3 and Depression (emotion) [address] [place] [id number] [place] [address] 24 Mar, 2015 Pain in joint, lower leg 719.46 and Sciatica 724.3 [address] [id number] [place] [address] Mar, [facility] [address], [place] [address] Feb, Pain in joint, site unspecified 719.40 ; Other urinary incontinence 788.39 ; Pain in joint, lower leg 719.46 ; Edema 782.3 ; Sciatica 724.3 ; Essential hypertension, benign 401.1 ; Depression 311 ; Diabetes mellitus 250.00 ; Incontinence 788.30 and Restless legs syndrome 333.94 [facility] [address], [place] [address] Feb, [facility] [id number] [place] [address] Nov, [facility] [address], [place] [address] Nov, [facility] [id number] [place] [address] Oct, [facility] [address], [place] [address] Oct, [facility] [address], [place] [address] Aug, [facility] [address], [place] [address] Aug, [facility] [address], [place] [address] Aug, [facility] [id number], [place] [address] Aug, [facility] [address], [place] [address] Aug, [facility] [id number] [address] Aug, [facility] [id number] [address] Jun, [facility] [place] [facility] [address] [id number] [place] [address] Jun, [facility] [place] [facility] [address] [id number] [place] [address] Jun, [facility] [place] [facility] [address] [id number] [place] [address] Jun, [facility] [place] [facility] [address] [id number] [place] [address] Jun, [facility] [place] [facility] [address] [id number] [place] [address] Jun, [facility] [place] [facility] [address] [id number] [place] [address] May, [facility] [place] [facility] [address] [id number] [place] [address] May, [facility] [place] [facility] [address] [id number] [place] [address] May, [facility] [place] [facility] [address] [id number] [place] [address] May, [facility] [place] [facility] [address] [id number] [place] [address] Apr, [facility] [place] [facility] [address] [id number] [place] [address] Apr, [facility] [place] [facility] [address] [id number] [place] [address] 17 Apr, 2014 [facility] [place] [facility] [address] [id number] [place] [address] Apr, [facility] [place] [facility] [address] [id number] [place] [address] Mar, [facility] [place] [facility] [address] [id number] [place] [address] Mar, [facility] [place] [facility] [address] [id number] [place] [address] Mar, [facility] [place] [facility] [address] [id number] [place] [address] Mar, [facility] [place] [facility] [address] [id number] [place] [address] Mar, [facility] [place] [facility] [address] [id number] [place] [address] Mar, [facility] [place] [facility] [address] [id number] [place] [address] Feb, [facility] [place] [facility] [address] [id number] [place] [address] Feb, [facility] [place] [facility] [address] [id number] [place] [address] Jan, [facility] [place] [facility] [address] [id number] [place] [address] Jan, [facility] [place] [facility] [address] [id number] [place] [address] Jan, [facility] [place] [facility] [address] [id number] [place] [address] Jan, [facility] [place] [facility] [address] [id number] [place] [address] December, [facility] [place] [facility] [address] [id number] [place] [address] December, [facility] [place] [facility] [address] [id number] [place] [address] December, [facility] [place] [facility] [address] [id number] [place] [address] December, [facility] [place] [facility] [address] [id number] [place] [address] December, [facility] [place] [facility] [address] [id number] [place] [address] December, [facility] [place] [facility] [address] [id number] [place] [address] December, [facility] [place] [facility] [address] [id number] [place] [address] December, [facility] [place] [facility] [address] [id number] [place] [address] Nov, [facility] [place] [facility] [address] [id number] [place] [address] Nov, [facility] [place] [facility] [address] [id number] [place] [address] Nov, [facility] [place] [facility] [address] [id number] [place] [address] Nov, [facility] [place] [facility] [address] [id number] [place] [address] Oct, [facility] [place] [facility] [address] [id number] [place] [address] Oct, [facility] [place] [facility] [address] [id number] [place] [address] Oct, [facility] [place] [facility] [address] [id number] [place] [address] Oct, [facility] [place] [facility] [address] [id number] [place] [address] Oct, [facility] [place] [facility] [address] [id number] [place] [address] Oct, [facility] [place] [facility] [address] [id number] [place] [address] Oct, [facility] [place] [facility] [address] [id number] [place] [address] Oct, [facility] [place] [facility] [address] [id number] [place] [address] Sep, [facility] [place] [facility] [address] [id number] [place] [address] Sep, [facility] [address] [id number] [place] [address] Sep, [facility] [place] [facility] [address] [id number] [place] [address] Sep, [facility] [place] [facility] [address] [id number] [place] [address] Sep, [facility] [place] [facility] [address] [id number] [place] [address] Aug, [facility] [place] [facility] [address] [id number] [place] [address] Aug, [facility] [place] [facility] [address] [id number] [place] [address] Jul, [facility] [address] [id number] [place] [address] Jul, [facility] [place] [facility] [address] [id number] [place] [address] Jul, [facility] [place] [facility] [address] [id number] [place] [address] Jul, [facility] [place] [facility] [address] [facility] [id number] [place] [address] Jul, [facility] [place] [facility] [address] [id number] [place] [address] Jul, [facility] [place] [facility] [address] [id number] [place] [address] Jul, [facility] [place] [facility] [address] [id number] [place] [address] Jun, [facility] [place] [facility] [address] [id number] [place] [address] Jun, [facility] [place] [facility] [address] [id number] [place] [address] Jun, [facility] [place] [facility] [address] [id number] [place] [address] Jun, [facility] [place] [facility] [address] [id number] [place] [address] Jun, [facility] [place] [facility] [address] [id number] [place] [address] Jun, [facility] [place] [facility] [address] [id number] [place] [address] Jun, [facility] [place] [facility] [address] [id number] [place] [address] Jun, [facility] [place] [facility] [address] [id number] [place] [address] Jun, [facility] [place] [facility] [address] [id number] [place] [address] Jun, [facility] [place] [facility] [address] [id number] [place] [address] Jun, [facility] [place] [facility] [address] [id number] [place] [address] Jun, [facility] [place] [facility] [address] [id number] [place] [address] Jun, [facility] [place] [facility] [address] [id number] [place] [address] May, [facility] [place] [facility] [address] [id number] [place] [address] May, [facility] [place] [facility] [address] [id number] [place] [address] May, [facility] [place] [facility] [address] [id number] [place] [address] May, [facility] [place] [facility] [address] [id number] [place] [address] May, [facility] [place] [facility] [address] [id number] [place] [address] May, [facility] [place] [facility] [address] [id number] [place] [address] 10 May, 2013 [facility] [place] [facility] [address] [id number] [place] [address] 10 May, 2013 [facility] [place] [facility] [address] [id number] [place] [address] 09 May, 2013 [facility] [place] [facility] [address] [id number] [place] [address] 23 Apr, 2013 [facility] [place] [facility] [address] [id number] [place] [address] Apr, [facility] [place] [facility] [address] [id number] [place] [address] Apr, [facility] [place] [facility] [address] [id number] [place] [address] Apr, [facility] [place] [facility] [address] [id number] [place] [address] 15 Mar, 2013 [facility] [place] [facility] [address] [id number] [place] [address] 14 Mar, 2013 [facility] [place] [facility] [address] [id number], [place] [address] Mar, [facility] [place] [facility] [address] [id number], [place] [address] Jan, [facility] [place] [facility] [address] [id number], [place] [address] Jan, [facility] [place] [facility] [address] [id number] [place] [address] Jan, [facility] [place] [facility] [address] [id number], [place] [address] Jan, [facility] [place] [facility] [address] [id number] [place] [address] December, [facility] [place] [facility] [address] [id number] [place] [address] 11 Nov, 2012 [facility] [address] [id number] [place] [address] 10 Nov, 2012 [facility] [address] [id number] [place] [address] 19 Sep, 2012 [facility] [address] [id number] [place] [address] 13 Sep, 2012 [facility] [place] [facility] [address] [id number] [place] [address] Sep, [facility] [address] [id number] [place] [address] 29 Aug, 2012 [facility] [place] [facility] [address] [id number] [place] [address] 18 Aug, 2012 [facility] [address] [id number] [place] [address] 17 Aug, 2012 [facility] [address] [id number] [place] [address] 16 Aug, 2012 [facility] [place] [facility] [address] [id number] [place] [address] 16 Aug, 2012 [facility] [address] [id number] [place] [address] 15 Aug, 2012 [facility] [address] [id number] [place] [address] Aug, [facility] [place] [facility] [address] [id number] [place] [address] Jul, [facility] [place] [facility] [address] [id number] [place] [address] Jul, [facility] [place] [facility] [address] [id number] [place] [address] Jun, [facility] [place] [facility] [address] [id number] [place] [address] Jun, [facility] [place] [facility] [address] [id number] [place] [address] May, [facility] [place] [facility] [address] [id number] [place] [address] May, [facility] [place] [facility] [address] [id number] [place] [address] May, [facility] [place] [facility] [address] [id number] [place] [address] May, [facility] [address] [id number] [place] [address] Apr, [facility] [place] [facility] [address] [id number] [place] [address] 24 Apr, 2012 [facility] [address] [id number] [place] [address] 21 Apr, 2012 [facility] [address] [id number] [place] [address] 20 Apr, 2012 [facility] [place] [facility] [address] [id number] [place] [address] Apr, [facility] [place] [facility] [address] [id number] [place] [address] 19 Apr, 2012 [facility] [place] [facility] [address] [id number] [place] [address] Apr, [facility] [place] [facility] [address] [id number], [place] [address] Mar, [facility] [place] [facility] [address] [id number] [place] [address] December, [facility] [place] [facility] [address] [id number] [place] [address] December, [facility] [place] [facility] [address] [id number] [place] [address] December, [facility] [place] [facility] [address] [id number], [place] [address] 10 Sep, 2011 [facility] [id number] [address] Sep, [facility] [id number] [address] Aug, [facility] [id number], [place] [address] Aug, [facility] [id number] [place] [address] Aug, [facility] [id number] [address] Jun, [facility] [id number], [place] [address] Jun, [facility] [id number] [place] [address] Jun, [facility] [id number] [place] [address] Jun, [facility] [id number] [place] [address] Mar, [facility] [id number] [place] [address] Jan, [facility] [address] [id number] [address] December, IMMUNIZATIONS No Known Immunizations SOCIAL HISTORY Never Assessed REASON FOR VISIT Controlled Med Refill PLAN OF CARE VITAL SIGNS MEDICATIONS Medication Instructions Dosage Frequency Start Date End Date Duration Status Oxycodone-Acetaminophen 5-325 MG Orally every 6 hrs 1 tablet as needed 6h Aug, Sep, 16 days Active RESULTS No Results PROCEDURES No [...]
--- OUTSIDE RECORDS SUMMARY | 2019-03-05 11:01 | XMS REPORT ---
Author Author AARON Martin Organization [facility] Address [address] [place] [address] Care Team Providers Care [employer]erg[employer] Roving Winder Name Role Phone AARON Martin Unavailable PROBLEMS Type Condition ICD9-CM Code [id number] Code Onset Dates Condition Status SNOMED Code Problem Type 2 diabetes mellitus with diabetic peripheral angiopathy without gangrene, without long-term current use of insulin E11.51 Active 309135411 Problem Controlled restless leg syndrome G25.81 Active 59009925 Problem Benign essential HTN I10 Active 6613171 Problem OAB (overactive bladder) N32.81 Active 314330058 Problem Body mass index (BMI) of 40.0-44.9 in adult Z68.41 Active 908862626 Problem GERD (gastroesophageal reflux disease) K21.9 Active 115455679 Problem Degenerative arthritis of knee M17.9 Active 135075540 Problem Morbid (severe) obesity due to excess calories E66.01 Active 586443456 Problem Mild single current episode of major depressive disorder F32.0 Active 20700034 ALLERGIES No Information ENCOUNTERS Encounter Location Date Diagnosis [facility] [id number] [place] [address] Nov, Benign essential HTN I10 ; Type [...] Z68.41 and GERD (gastroesophageal reflux disease) K21.9 [facility] [id number] [place] [address] Nov, [place] [id number] [place] [address] Oct, Degenerative arthritis of knee M17.9 [place] [address] [place] [id number] [place] [address] Oct, [place] [address] [address] [id number] [place] [address] Oct, Type 2 diabetes mellitus with diabetic peripheral angiopathy without gangrene, without long-term current use of insulin E11.51 and Controlled substance agreement signed Z79.899 [place] [id number] [place] [address] Oct, Degenerative arthritis of knee M17.9 [place] [address] [address] [id number] [place] [address] Sep, Type 2 diabetes mellitus with diabetic peripheral angiopathy without gangrene, without long-term current use of insulin E11.51 ; Benign essential HTN I10 ; BMI 40.0-44.9, adult Z68.41 ; Mild single current episode of major depressive disorder F32.0 ; OAB (overactive bladder) N32.81 ; Degenerative arthritis of knee M17.9 and GERD (gastroesophageal reflux disease) K21.9 [place] [id number] [place] [address] Aug, Joint pain and swelling due to Lyme disease A69.20 [place] [id number] [place] [address] Jun, [place] [id number] [place] [address] May, 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 ; Benign essential HTN I10 ; 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 ; Body mass index (BMI) of 40.0-44.9 in adult Z68.41 and Morbid (severe) obesity due to excess calories E66.01 [place] [address] [id number] [place] [address] May, Encounter for immunization Z23 [place] [address] [place] [address] [id number] [place] [address] May, 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 [place] [address] [id number] [place] [address] Mar, Mild single current episode of major depressive disorder F32.0 [place] [address] [id number] [place] [address] Mar, Joint pain and swelling due to Lyme disease A69.20 [place] [address] [address] [id number] [place] [address] Feb, Izzy infection B37.9 [place] [address] [id number] [place] [address] Jan, Insect bite (nonvenomous) of abdominal wall, initial encounter S30.861A and Joint pain and swelling due to Lyme disease A69.20 [place] [address] [place] [id number] [place] [address] Jan, [place] [address] [place] [id number] [place] [address] Sep, Mild single current episode of major depressive disorder F32.0 and 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 [place] [address] [id number] [place] [address] Sep, Controlled restless leg syndrome G25.81 and Cramp of both lower extremities R25.2 [place] [address] [place] [address] [id number] [place] [address] Aug, 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 ; Controlled restless leg syndrome G25.81 ; SI (stress incontinence), female N39.3 ; Benign essential HTN I10 ; 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 ; GERD (gastroesophageal reflux disease) K21.9 ; Screening cholesterol level Z13.220 and Mild single current episode of major depressive disorder F32.0 [place] [address], [place] [address] Aug, [place] [address] [place] [address] May, [place] [address] [place] [id number] [address] May, Encounter for immunization Z23 [place] [address] [place] [id number] [place] [address] Apr, [place] [address] [place] [id number] [place] [address] Apr, [place] [address] [id number] [place] [address] Apr, SAMANTHA (secretory otitis media), right H65.91 ; 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 ; Controlled restless leg syndrome G25.81 ; Edema extremities R60.0 ; SI (stress incontinence), female N39.3 ; Benign essential HTN I10 ; Degenerative arthritis of knee M17.9 and Major depressive disorder with single episode, remission status unspecified F32.9 [place] [address], [place] [address] Apr, OME (otitis media with effusion), right H65.91 [place] [address], [place] [address] Mar, [place] [address] [place] [address] Mar, 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 ; Controlled restless leg syndrome G25.81 ; SI (stress incontinence), female N39.3 ; Benign essential HTN I10 ; GERD (gastroesophageal reflux disease) K21.9 ; Knee pain M25.569 and Major depressive disorder with single episode, remission status unspecified F32.9 [place] [address] [id number] [address] Mar, [facility] [address] [place] [address] Mar, [facility] [address], [place] [address] Jan, Pre-op exam Z01.818 [place] [address] [id number] [place] [address] Oct, Urinary tract infection N39.0 ; Benign essential HTN I10 ; Controlled restless leg syndrome G25.81 ; Edema extremities R60.0 ; Degenerative arthritis of knee M17.9 and GERD (gastroesophageal reflux disease) K21.9 [place] [address], [place] [address] Oct, Izzy albicans infection B37.9 [place] [address], [place] [address] Sep, [place] [address], [place] [address] Sep, UTI (urinary tract infection) N39.0 ; Benign essential HTN I10 ; 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 ; Controlled restless leg syndrome G25.81 ; Edema extremities R60.0 ; SI (stress incontinence), female N39.3 and 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 [place] [address], [place] [address] Sep, UTI (urinary tract infection) N39.0 [place] [address] [place] [id number] [address] Aug, Pre-op evaluation Z01.818 [place] [address], [place] [address] Aug, [place] [address], [place] [address] Aug, [place] [address] [place] [id number] [place] [address] Jul, Right hip pain M25.551 ; 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 and Knee pain M25.569 [place] [address] [id number] [place] [address] Jul, [place] [address] [address] Jun, Knee pain M25.569 ; 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 and Degenerative arthritis of knee M17.[address] [address] Jun, [place] [address] [place] [id number] [place] [address] Apr, Diabetes mellitus 250.00 ; Influenza vaccine administered V04.81 ; Incontinence 788.30 ; Restless legs syndrome 333.94 ; Sciatica 724.3 ; Essential hypertension, benign 401.1 ; Edema 782.3 and Depression (emotion) 311 [place] [address] [address] Mar, Pain in joint, lower leg 719.46 and Sciatica 724.3 [place] [id number] [place] [address] Mar, [place] [address] [place] [id number] [place] [address] Feb, Pain in joint, site unspecified 719.40 ; Other urinary incontinence 788.39 ; Pain in joint, lower leg 719.46 ; Edema 782.3 ; Sciatica 724.3 ; Essential hypertension, benign 401.1 ; Depression 311 ; Diabetes mellitus 250.00 ; Incontinence 788.30 and Restless legs syndrome 333.94 [place] [address] [place] [address] [id number] [place] [address] Feb, [place] [address] [id number] [place] [address] 14 Nov, 2014 [facility] [place] [facility] [address] [id number] [place] [address] 13 Nov, 2014 [facility] [place] [facility] [address] [id number] [place] [address] 18 Oct, 2014 [facility] [place] [facility] [address] [id number] [place] [address] 18 Oct, 2014 [facility] [place] [facility] [address] [id number] [place] [address] Aug, [facility] [place] [facility] [address] [id number] [place] [address] Aug, [facility] [place] [facility] [address] [id number] [place] [address] Aug, [facility] [place] [facility] [address] [id number] [place] [address] Aug, [facility] [place] [facility] [address] [id number] [place] [address] Aug, [facility] [place] [facility] [address] [id number] [place] [address] Aug, [facility] [place] [facility] [address] [id number] [place] [address] Jun, [facility] [place] [facility] [address] [id number] [place] [address] Jun, [facility] [place] [facility] [address] [id number] [place] [address] Jun, [facility] [place] [facility] [address] [id number] [place] [address] Jun, [facility] [place] [facility] [address] [id number] [place] [address] Jun, [facility] [place] [facility] [address] [id number] [place] [address] Jun, [facility] [place] [facility] [address] [id number] [place] [address] May, [facility] [place] [facility] [address] [id number] [place] [address] May, [facility] [place] [facility] [address] [id number] [place] [address] May, [facility] [place] [facility] [address] [id number] [place] [address] May, [facility] [place] [facility] [address] [id number] [place] [address] Apr, [facility] [place] [facility] [address] [id number] [place] [address] Apr, [facility] [place] [facility] [address] [id number] [place] [address] Apr, [facility] [place] [facility] [address] [id number] [place] [address] Apr, [facility] [place] [facility] [address] [id number] [place] [address] Mar, [facility] [place] [facility] [address] [id number] [place] [address] Mar, [facility] [place] [facility] [address] [id number] [place] [address] Mar, [facility] [place] [facility] [address] [id number], [place] [address] Mar, [facility] [place] [facility] [address] [id number] [place] [address] Mar, [facility] [place] [facility] [address] [id number] [place] [address] Mar, [facility] [place] [facility] [address] [id number] [place] [address] Feb, [facility] [place] [facility] [address] [id number] [place] [address] Feb, [facility] [place] [facility] [address] [id number] [place] [address] Jan, [facility] [place] [facility] [address] [id number] [place] [address] Jan, [facility] [place] [facility] [address] [id number] [place] [address] Jan, [facility] [place] [facility] [address] [id number] [place] [address] Jan, [facility] [place] [facility] [address] [id number] [place] [address] December, [facility] [place] [facility] [address] [id number] [place] [address] December, [facility] [place] [facility] [address] [id number] [place] [address] December, [facility] [place] [facility] [address] [id number] [place] [address] December, [facility] [place] [facility] [address] [id number] [place] [address] December, [facility] [place] [facility] [address] [id number] [place] [address] December, [facility] [place] [facility] [address] [id number] [place] [address] December, [facility] [place] [facility] [address] [id number] [place] [address] December, [facility] [place] [facility] [address] [id number] [place] [address] Nov, [facility] [place] [facility] [address] [id number] [place] [address] Nov, [facility] [place] [facility] [address] [id number] [place] [address] Nov, [facility] [place] [facility] [address] [id number] [place] [address] Nov, [facility] [place] [facility] [address] [id number] [place] [address] Oct, [facility] [place] [facility] [address] [id number] [place] [address] Oct, [facility] [place] [facility] [address] [id number] [place] [address] Oct, [facility] [place] [facility] [address] [id number] [place] [address] Oct, [facility] [place] [facility] [address] [id number] [place] [address] Oct, [facility] [place] [facility] [address] [id number] [place] [address] Oct, [facility] [place] [facility] [address] [id number] [place] [address] Oct, [facility] [place] [facility] [address] [id number] [place] [address] Oct, [facility] [place] [facility] [address] [id number] [place] [address] Sep, [facility] [place] [facility] [address] [id number] [place] [address] Sep, [facility] [place] [facility] [address] [id number] [place] [address] Sep, [facility] [place] [facility] [address] [id number] [place] [address] Sep, [facility] [place] [facility] [address] [id number] [place] [address] Sep, [facility] [place] [facility] [address] [id number] [place] [address] Aug, [facility] [place] [facility] [address] [id number], [place] [address] Aug, [facility] [address] [id number] [place] [address] Jul, [facility] [address] [id number], [place] [address] Jul, [facility] [address] [facility] [id number] [place] [address] Jul, [facility] [place] [facility] [address] [id number] [place] [address] Jul, [facility] [address] [facility] [id number] [place] [address] Jul, [facility] [address] [facility] [id number] [place] [address] Jul, [facility] [address] [place] [id number], [place] [address] Jul, [facility] [address] [id number], [place] [address] Jun, [facility] [address] [facility] [id number] [place] [address] Jun, [facility] [id number], [place] [address] Jun, [facility] [address] [facility] [id number], [place] [address] Jun, [facility] [place] [facility] [address] [id number], [place] [address] Jun, [facility] [place] [facility] [address] [id number], [place] [address] Jun, [facility] [place] [facility] [address] [facility] [id number], [place] [address] Jun, [facility] [place] [facility] [address] [facility] [id number], [place] [address] Jun, [facility] [place] [facility] [address] [id number] [place] [address] Jun, [facility] [place] [facility] [address] [id number] [place] [address] Jun, [facility] [place] [facility] [address] [id number] [place] [address] Jun, [facility] [place] [facility] [address] [id number] [place] [address] Jun, [facility] [place] [facility] [address] [id number] [place] [address] Jun, [facility] [place] [facility] [address] [id number] [place] [address] May, [facility] [place] [facility] [address] [id number] [place] [address] May, [facility] [place] [facility] [address] [id number] [place] [address] May, [facility] [place] [facility] [address] [id number] [place] [address] May, [facility] [place] [facility] [address] [id number] [place] [address] May, [facility] [place] [facility] [address] [id number] [place] [address] May, [facility] [place] [facility] [address] [id number] [place] [address] 10 May, 2013 [facility] [place] [facility] [address] [id number] [place] [address] 10 May, 2013 [facility] [place] [facility] [address] [id number] [place] [address] 09 May, 2013 [facility] [place] [facility] [address] [id number] [place] [address] 23 Apr, 2013 [facility] [place] [facility] [address] [id number] [place] [address] Apr, [facility] [address] [id number] [place] [address] Apr, [facility] [place] [facility] [address] [id number] [place] [address] Apr, [facility] [place] [facility] [address] [id number] [place] [address] Mar, [facility] [place] [facility] [address] [id number] [place] [address] 14 Mar, 2013 [facility] [place] [facility] [address] [id number] [place] [address] Mar, [facility] [place] [facility] [address] [id number] [place] [address] Jan, [facility] [place] [facility] [address] [id number] [place] [address] Jan, [facility] [place] [facility] [address] [id number] [place] [address] Jan, [facility] [place] [facility] [address] [id number] [place] [address] Jan, [facility] [place] [facility] [address] [facility] [id number], [place] [address] December, [facility] [place] [facility] [address] [id number], [place] [address] Nov, [facility] [place] [facility] [address] [id number], [place] [address] Nov, [facility] [place] [facility] [address] [id number] [place] [address] Sep, [facility] [place] [facility] [address] [id number], [place] [address] Sep, [facility] [place] [facility] [address] [id number], [place] [address] Sep, [facility] [place] [facility] [address] [id number] [place] [address] 29 Aug, 2012 [facility] [address] [id number] [place] [address] 18 Aug, 2012 [facility] [address] [id number] [place] [address] 17 Aug, 2012 [facility] [address] [id number] [place] [address] 16 Aug, 2012 [facility] [address] [id number] [place] [address] 16 Aug, 2012 [facility] [address] [id number] [place] [address] Aug, [facility] [address] [id number] [place] [address] Aug, [facility] [address] [id number] [place] [address] Jul, [facility] [address] [id number] [place] [address] Jul, [facility] [address] [id number] [place] [address] Jun, [facility] [address] [facility] [id number] [place] [address] Jun, [facility] [address] [id number] [place] [address] May, [facility] [address] [id number] [place] [address] May, [facility] [place] [facility] [address] [id number] [place] [address] May, [facility] [place] [facility] [address] [id number] [place] [address] May, [facility] [address] [id number] [place] [address] Apr, [facility] [address] [id number] [place] [address] 24 Apr, 2012 [facility] [place] [facility] [address] [id number] [place] [address] 21 Apr, 2012 [facility] [place] [facility] [address] [id number] [place] [address] 20 Apr, 2012 [facility] [place] [facility] [address] [id number] [place] [address] 20 Apr, 2012 [facility] [place] [facility] [address] [id number] [place] [address] 19 Apr, 2012 [facility] [place] [facility] [address] [id number] [place] [address] Apr, [facility] [place] [facility] [address] [id number] [place] [address] Mar, [facility] [place] [facility] [address] [id number] [place] [address] December, [facility] [place] [facility] [address] [id number] [place] [address] December, [facility] [place] [facility] [address] [id number] [place] [address] December, [facility] [place] [facility] [address] [id number] [place] [address] Sep, [facility] [place] [facility] [address] [id number] [place] [address] Sep, [facility] [place] [facility] [address] [id number] [place] [address] Aug, [facility] [place] [facility] [address] [id number] [place] [address] Aug, [facility] [place] [facility] [address] [id number] [place] [address] Aug, [facility] [place] [facility] [address] [id number], [place] [address] 10 Jun, 2011 [facility] [address] [id number], [place] [address] Jun, [facility] [address] [id number], [place] [address] Jun, [facility] [address] [id number], [place] [address] Jun, [facility] [address] [id number], [place] [address] Mar, [facility] [address] [id number], [place] [address] Jan, [facility] [address] [id number], [place] [address] December, IMMUNIZATIONS No Known Immunizations SOCIAL HISTORY Never Assessed REASON FOR VISIT Refill request PLAN OF CARE VITAL SIGNS MEDICATIONS Medication Instructions Dosage Frequency Start Date End Date Duration Status Quinapril HCl 20 mg Orally Once a day 1 tablet 24h 30 Active MetFORMIN HCl ER 500 [...]
--- OUTSIDE RECORDS SUMMARY | 2019-03-05 11:02 | XMS REPORT ---
Author Author AARON DWYER Organization [facility] Address [address] [place] [address] Care Team Providers Care Cardiology Clinical Nurse Specialist Name Role Phone AARON DWYER Unavailable PROBLEMS Type Condition ICD9-CM Code LAE59-HF Code Onset Dates Condition Status SNOMED Code Problem Benign essential HTN I10 Active 1546846 Problem Edema extremities R60.0 Active 785605866 Problem SI (stress incontinence), female N39.3 Active 83270513 Problem 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 Active 9772627 Problem GERD (gastroesophageal reflux disease) K21.9 Active 399165223 Problem Right hip pain M25.551 Active 24029634 Problem 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
--- OUTSIDE RECORDS SUMMARY | 2019-03-05 11:02 | XMS REPORT ---
Author SABRA Aldridge [facility] e[employer] Address Unknown Phone Unavailable Care Team Providers Care Sisal Operator Name Role Phone SABRA GRAMAJO CP Unavailable Allergies No Known Allergies Problems [...]
--- OUTSIDE RECORDS SUMMARY | 2019-03-05 11:02 | XMS REPORT ---
Author Author TORRES ABEL Organization [facility] Address [address] [place] [address] Care Team Providers Care Ticket Sales Agent Name Role Phone ABELTORRES Hollis Unavailable PROBLEMS Type Condition ICD9-CM Code SID83-OJ Code Onset Dates Condition Status SNOMED Code Problem Type 2 diabetes mellitus with diabetic peripheral angiopathy without gangrene, without long-term current use of insulin E11.51 Active 013923166 Problem Controlled restless leg syndrome G25.81 Active 05312468 Problem Benign essential HTN I10 Active 7572804 Problem OAB (overactive bladder) N32.81 Active 716878371 Problem Body mass index (BMI) of 40.0-44.9 in adult Z68.41 Active 024187696 Problem GERD (gastroesophageal reflux disease) K21.9 Active 799134234 Problem Degenerative arthritis of knee M17.9 Active 235684676 Problem Morbid (severe) obesity due to excess calories E66.01 Active 542257561 Problem Mild single current episode of major depressive disorder F32.0 Active 20041838 ALLERGIES Substance Reaction Event Type Date Status Codeine Unknown Non Drug Allergy May, Active ENCOUNTERS Encounter Location Date Diagnosis [facility] [address] [facility] [id number] [address] Nov, Benign essential HTN I10 ; Type [...] Z68.41 and GERD (gastroesophageal reflux disease) K21.9 [facility] [id number] [address] Nov, [place] [address] [address], [place] [address] Oct, Degenerative arthritis of knee M17.9 [place] [id number] [place] [address] Oct, [place] [id number] [place] [address] Oct, Type 2 diabetes mellitus with diabetic peripheral angiopathy without gangrene, without long-term current use of insulin E11.51 and Controlled substance agreement signed Z79.899 [id number] [place] [address] Oct, Degenerative arthritis of knee M17.9 [place] [id number] [place] [address] Sep, Type 2 diabetes mellitus with diabetic peripheral angiopathy without gangrene, without long-term current use of insulin E11.51 ; Benign essential HTN I10 ; BMI 40.0-44.9, adult Z68.41 ; Mild single current episode of major depressive disorder F32.0 ; OAB (overactive bladder) N32.81 ; Degenerative arthritis of knee M17.9 and GERD (gastroesophageal reflux disease) K21.9 [place] [id number] [place] [address] Aug, Joint pain and swelling due to Lyme disease A69.20 [place] [id number] [place] [address] Jun, [id number] [place] [address] May, 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 ; Benign essential HTN I10 ; 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 ; Body mass index (BMI) of 40.0-44.9 in adult Z68.41 and Morbid (severe) obesity due to excess calories E66.[address] [place] [address] May, Encounter for immunization Z23 [place] [id number] [place] [address] May, 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 [place] [id number] [place] [address] Mar, Mild single current episode of major depressive disorder F32.0 [place] [id number] [place] [address] Mar, Joint pain and swelling due to Lyme disease A69.20 [place] [address] [address] Feb, Izzy infection B37.9 [place] [address] [address] Jan, Insect bite (nonvenomous) of abdominal wall, initial encounter S30.861A and Joint pain and swelling due to Lyme disease A69.20 [place] [id number] [place] [address] Jan, [place] [id number] [place] [address] Sep, Mild single current episode of major depressive disorder F32.0 and 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 [place] [id number] [place] [address] Sep, Controlled restless leg syndrome G25.81 and Cramp of both lower extremities R25.2 [place] [id number] [place] [address] Aug, 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 ; Controlled restless leg syndrome G25.81 ; SI (stress incontinence), female N39.3 ; Benign essential HTN I10 ; 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 ; GERD (gastroesophageal reflux disease) K21.9 ; Screening cholesterol level Z13.220 and Mild single current episode of major depressive disorder F32.0 [place] [address], [place] [address] Aug, [facility] [address], [place] [address] May, [place] [id number] [place] [address] May, Encounter for immunization Z23 [facility] [id number] [place] [address] 28 Apr, 2016 [place] [id number] [place] [address] 28 Apr, 2016 [place] [id number] [place] [address] 27 Apr, 2016 SAMANTHA (secretory otitis media), right H65.91 ; 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 ; Controlled restless leg syndrome G25.81 ; Edema extremities R60.0 ; SI (stress incontinence), female N39.3 ; Benign essential HTN I10 ; Degenerative arthritis of knee M17.9 and Major depressive disorder with single episode, remission status unspecified F32.9 [place] [address], [place] [address] Apr, OME (otitis media with effusion), right H65.91 [place] [address] [place] [address] Mar, [place] [address], [place] [address] Mar, 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 ; Controlled restless leg syndrome G25.81 ; SI (stress incontinence), female N39.3 ; Benign essential HTN I10 ; GERD (gastroesophageal reflux disease) K21.9 ; Knee pain M25.569 and Major depressive disorder with single episode, remission status unspecified F32.9 [place] [address], [place] [address] Mar, [place] [address], [place] [address] Mar, [facility] [address], [place] [address] Jan, Pre-op exam Z01.818 [place] [id number] [place] [address] Oct, Urinary tract infection N39.0 ; Benign essential HTN I10 ; Controlled restless leg syndrome G25.81 ; Edema extremities R60.0 ; Degenerative arthritis of knee M17.9 and GERD (gastroesophageal reflux disease) K21.9 [place] [address], [place] [address] Oct, Izzy albicans infection B37.9 [place] [id number] [place] [address] Sep, [place] [address], [place] [address] Sep, UTI (urinary tract infection) N39.0 ; Benign essential HTN I10 ; 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 ; Controlled restless leg syndrome G25.81 ; Edema extremities R60.0 ; SI (stress incontinence), female N39.3 and 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 [place] [address], [place] [address] Sep, UTI (urinary tract infection) N39.0 [place] [address], [place] [address] Aug, Pre-op evaluation Z01.818 [place] [address], [place] [address] Aug, [place] [address] [place] [address] Aug, [place] [address] [place] [address] Jul, Right hip pain M25.551 ; 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 and Knee pain M25.569 [place] [id number] [place] [address] Jul, [place] [address] [address] Jun, Knee pain M25.569 ; 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 and Degenerative arthritis of knee M17.9 [place] [id number] [place] [address] Jun, [place] [id number] [place] [address] Apr, Diabetes mellitus 250.00 ; Influenza vaccine administered V04.81 ; Incontinence 788.30 ; Restless legs syndrome 333.94 ; Sciatica 724.3 ; Essential hypertension, benign 401.1 ; Edema 782.3 and Depression (emotion) 311 [place] [id number] [place] [address] Mar, Pain in joint, lower leg 719.46 and Sciatica 724.3 [place] [id number] [place] [address] Mar, [place] [id number] [place] [address] Feb, Pain in joint, site unspecified 719.40 ; Other urinary incontinence 788.39 ; Pain in joint, lower leg 719.46 ; Edema 782.3 ; Sciatica 724.3 ; Essential hypertension, benign 401.1 ; Depression 311 ; Diabetes mellitus 250.00 ; Incontinence 788.30 and Restless legs syndrome 333.94 [place] [id number] [place] [address] Feb, [facility] [address] [id number] [place] [address] Nov, [facility] [place] [facility] [address] [id number] [place] [address] Nov, [facility] [place] [facility] [address] [id number] [place] [address] Oct, [facility] [place] [facility] [address] [id number] [place] [address] Oct, [facility] [place] [facility] [address] [id number] [place] [address] Aug, [facility] [place] [facility] [address] [id number] [place] [address] Aug, [facility] [place] [facility] [address] [id number] [place] [address] Aug, [facility] [place] [facility] [address] [id number] [place] [address] Aug, [facility] [place] [facility] [address] [id number] [place] [address] Aug, [facility] [place] [facility] [address] [id number] [place] [address] Aug, [facility] [place] [facility] [address] [id number] [place] [address] Jun, [facility] [place] [facility] [address] [id number] [place] [address] Jun, [facility] [place] [facility] [address] [id number] [place] [address] Jun, [facility] [place] [facility] [address] [id number] [place] [address] Jun, [facility] [place] [facility] [address] [id number] [place] [address] Jun, [facility] [place] [facility] [address] [id number] [place] [address] Jun, [facility] [place] [facility] [address] [id number] [place] [address] May, [facility] [place] [facility] [address] [id number] [place] [address] May, [facility] [place] [facility] [address] [id number] [place] [address] May, [facility] [place] [facility] [address] [id number] [place] [address] May, [facility] [place] [facility] [address] [id number] [place] [address] Apr, [facility] [place] [facility] [address] [id number] [place] [address] Apr, [facility] [place] [facility] [address] [id number] [place] [address] Apr, [facility] [place] [facility] [address] [id number] [place] [address] Apr, [facility] [place] [facility] [address] [id number] [place] [address] Mar, [facility] [place] [facility] [address] [id number] [place] [address] Mar, [facility] [place] [facility] [address] [id number] [place] [address] Mar, [facility] [place] [facility] [address] [id number] [place] [address] Mar, [facility] [place] [facility] [address] [id number] [place] [address] Mar, [facility] [place] [facility] [address] [id number] [place] [address] Mar, [facility] [place] [facility] [address] [id number] [place] [address] Feb, [facility] [place] [facility] [address] [id number] [place] [address] Feb, [facility] [address] [id number] [place] [address] Jan, [facility] [place] [facility] [address] [id number] [place] [address] Jan, [facility] [address] [id number] [place] [address] Jan, [facility] [place] [facility] [address] [id number] [place] [address] Jan, [facility] [place] [facility] [address] [id number] [place] [address] December, [facility] [place] [facility] [address] [id number] [place] [address] December, [facility] [place] [facility] [address] [id number] [place] [address] December, [facility] [address] [id number] [place] [address] December, [facility] [place] [facility] [address] [id number] [place] [address] December, [facility] [place] [facility] [address] [id number] [place] [address] December, [facility] [place] [facility] [address] [id number] [place] [address] December, [facility] [place] [facility] [address] [id number] [place] [address] December, [facility] [place] [facility] [address] [id number] [place] [address] Nov, [facility] [place] [facility] [address] [id number] [place] [address] Nov, [facility] [place] [facility] [address] [id number] [place] [address] Nov, [facility] [place] [facility] [address] [id number] [place] [address] Nov, [facility] [place] [facility] [address] [id number] [place] [address] Oct, [facility] [place] [facility] [address] [id number] [place] [address] Oct, [facility] [place] [facility] [address] [id number] [place] [address] Oct, [facility] [place] [facility] [address] [id number] [place] [address] Oct, [facility] [place] [facility] [address] [id number] [place] [address] Oct, [facility] [place] [facility] [address] [id number] [place] [address] Oct, [facility] [place] [facility] [address] [id number] [place] [address] Oct, [facility] [place] [facility] [address] [id number] [place] [address] Oct, [facility] [place] [facility] [address] [id number] [place] [address] Sep, [facility] [place] [facility] [address] [id number] [place] [address] Sep, [facility] [place] [facility] [address] [id number] [place] [address] Sep, [facility] [place] [facility] [address] [id number] [place] [address] Sep, [facility] [place] [facility] [address] [id number] [place] [address] Sep, [facility] [place] [facility] [address] [id number] [place] [address] Aug, [facility] [place] [facility] [address] [id number] [place] [address] Aug, [facility] [address] [id number] [place] [address] Jul, [facility] [address] [id number] [place] [address] Jul, [facility] [address] [id number] [place] [address] Jul, [facility] [address] [id number] [place] [address] Jul, [facility] [address] [id number] [place] [address] Jul, [facility] [address] [id number] [place] [address] Jul, [facility] [address] [id number] [place] [address] Jul, [facility] [address] [id number] [place] [address] Jun, [facility] [address] [id number] [place] [address] Jun, [facility] [address] [id number] [place] [address] Jun, [facility] [address] [id number] [place] [address] Jun, [facility] [address] [id number] [place] [address] Jun, [facility] [address] [id number] [place] [address] Jun, [facility] [address] [id number] [place] [address] Jun, [facility] [address] [id number] [place] [address] Jun, [facility] [place] [facility] [address] [id number] [place] [address] Jun, [facility] [place] [facility] [address] [id number] [place] [address] Jun, [facility] [place] [facility] [address] [id number] [place] [address] Jun, [facility] [place] [facility] [address] [id number] [place] [address] Jun, [facility] [place] [facility] [address] [id number] [place] [address] Jun, [facility] [place] [facility] [address] [id number] [place] [address] May, [facility] [place] [facility] [address] [id number] [place] [address] May, [facility] [place] [facility] [address] [id number], [place] [address] May, [facility] [place] [facility] [address] [id number] [place] [address] May, [facility] [place] [facility] [address] [id number], [place] [address] May, [facility] [place] [facility] [address] [id number], [place] [address] May, [facility] [place] [facility] [address] [id number], [place] [address] May, [facility] [place] [facility] [address] [id number], [place] [address] May, [facility] [place] [facility] [address] [id number], [place] [address] 09 May, 2013 [facility] [place] [facility] [address] [id number], [place] [address] 23 Apr, 2013 [facility] [place] [facility] [address] [id number], [place] [address] Apr, [facility] [address] [id number] [place] [address] Apr, [facility] [address] [id number], [place] [address] 09 Apr, 2013 [facility] [address] [id number] [place] [address] 15 Mar, 2013 [facility] [place] [facility] [address] [id number] [place] [address] 14 Mar, 2013 [facility] [address] [id number] [place] [address] Mar, [facility] [address] [id number] [place] [address] Jan, [facility] [address] [facility] [id number] [place] [address] Jan, [facility] [address] [id number] [place] [address] Jan, [facility] [address] [id number] [place] [address] Jan, [facility] [address] [facility] [id number], [place] [address] December, [facility] [address] [id number], [place] [address] Nov, [facility] [place] [facility] [address] [id number], [place] [address] Nov, [facility] [place] [facility] [address] [id number], [place] [address] Sep, [facility] [place] [facility] [address] [id number], [place] [address] Sep, [facility] [place] [facility] [address] [facility] [id number], [place] [address] Sep, [facility] [place] [facility] [address] [id number] [place] [address] 29 Aug, 2012 [facility] [place] [facility] [address] [id number] [place] [address] 18 Aug, 2012 [facility] [place] [facility] [address] [id number] [place] [address] 17 Aug, 2012 [facility] [place] [facility] [address] [id number] [place] [address] Aug, [facility] [place] [facility] [address] [id number] [place] [address] 16 Aug, 2012 [facility] [place] [facility] [address] [id number] [place] [address] Aug, [facility] [place] [facility] [address] [id number] [place] [address] Aug, [facility] [place] [facility] [address] [id number] [place] [address] Jul, [facility] [place] [facility] [address] [id number] [place] [address] Jul, [facility] [place] [facility] [address] [id number] [place] [address] Jun, [facility] [place] [facility] [address] [id number] [place] [address] Jun, [facility] [place] [facility] [address] [id number] [place] [address] May, [facility] [place] [facility] [address] [id number] [place] [address] May, [facility] [place] [facility] [address] [id number] [place] [address] May, [facility] [place] [facility] [address] [id number] [place] [address] May, [facility] [place] [facility] [address] [id number] [place] [address] 26 Apr, 2012 [facility] [place] [facility] [address] [id number] [place] [address] 24 Apr, 2012 [facility] [place] [facility] [address] [id number] [place] [address] 21 Apr, 2012 [facility] [place] [facility] [address] [id number] [place] [address] 20 Apr, 2012 [facility] [place] [facility] [address] [id number] [place] [address] 20 Apr, 2012 [facility] [place] [facility] [address] [id number] [place] [address] 19 Apr, 2012 [facility] [place] [facility] [address] [id number] [place] [address] 12 Apr, 2012 [facility] [place] [facility] [address] [id number] [place] [address] Mar, [facility] [place] [facility] [address] [id number] [place] [address] December, [facility] [place] [facility] [address] [id number] [place] [address] December, [facility] [place] [facility] [address] [id number] [place] [address] December, [facility] [place] [facility] [address] [id number] [place] [address] Sep, [facility] [place] [facility] [address] [id number], [place] [address] Sep, [facility] [place] [facility] [address] [id number] [place] [address] Aug, [facility] [place] [facility] [address] [id number] [place] [address] Aug, [facility] [place] [facility] [address] [id number] [place] [address] Aug, [facility] [place] [facility] [address] [id number] [address] 10 Jun, 2011 [facility] [address] [id number] [address] Jun, [facility] [id number], [place] [address] Jun, [facility] [address] [id number] [address] Jun, [facility] [id number], [place] [address] Mar, [facility] [id number], [place] [address] Jan, [facility] [address] [id number], [place] [address] December, IMMUNIZATIONS No Known Immunizations SOCIAL HISTORY Never Assessed REASON FOR VISIT Diabetes---DBrachellettAVIVA PLAN OF CARE Activity Details Follow Up 3 Months Reason:[facility] VITAL SIGNS Height 64 in 2017-06-20 Weight 240 lbs 2017-06-20 Temperature 98.5 degrees Fahrenheit 2017-06-20 Heart Rate 64 bpm 2017-06-20 Respiratory Rate 20 2017-06-20 BMI 41.19 kg/m2 2017-06-20 Blood pressure systolic 120 mmHg 2017-06-20 Blood pressure diastolic 80 mmHg 2017-06-20 MEDICATIONS Medication Instructions Dosage Frequency Start Date End Date Duration Status Oxybutynin Chloride 5 mg Orally Once a day 1 tablet 24h Active Oxycodone-Acetaminophen 5-325 MG Orally every 6 hrs 1 tablet as needed 6h Mar, Active Quinapril HCl 20 mg Orally Once a day 1 tablet 24h 30 Active Venlafaxine HCl ER 75 MG Orally Once a day TAKE ONE CAPSULE BY MOUTH DAILY WITH FOOD 24h 30 Active MetFORMIN HCl ER 500 mg Orally twice a day 1 tablet twice daily 12h May, 30 day(s) Active RESULTS Name Result Date Reference Range A1C (IN HOUSE) 2017-06-20 A1C IN HOUSE 6.8 4.3 - 5.6 % Previous A1c 5.9 Lot [id number] Exp date 03/13 PROCEDURES Procedure Date Ordered Result Body Site GLYCATED HEMOGLOBIN TEST Jun 20, 2017 [facility] VISIT ESTABLISHED PATIENT Jun 20, 2017 INSTRUCTIONS MEDICATIONS ADMINISTERED No Known Medications MEDICAL (GENERAL) HISTORY Type Description Date Medical History Hypertension Medical History Neuropathy Medical History Diabetes Medical History Restless leg syndrome Surgical History carpal tunnel left hand. Surgical History Right Knee Surgery Surgical History Left Knee SOA 03/21/16 Hospitalization History Left Knee SOA 03/21/16
--- OUTSIDE RECORDS SUMMARY | 2019-03-05 11:02 | XMS REPORT ---
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 Problem 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 Active Assessment Knee pain M25.569 Active Assessment Degenerative arthritis of knee M17.9 Active Problem Degenerative arthritis of knee M17.9 Active Problem 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 Problem Knee pain M25.569 Active Problem SI (stress incontinence), female N39.3 Active Problem Benign essential HTN I10 Active Problem Controlled restless leg syndrome G25.81 Active Problem Edema extremities R60.0 Active Medications Medication Code System Code Instructions Start Date End Date Status Dosage Hydrocodone-Acetaminophen [facility] [address]-13 5-325 MG Orally 3 times a day Jul 22, 2015 1 tablet as needed Venlafaxine HCl ER [facility] [address]-83 75 MG Orally Once a day 1 capsule with food Flexeril NDC 0 10 mg 2 times a day Jun 18, 2013 Aug 23, 2015 take 1 tablet (10 mg) by oral route 3 times per day PRN take prn muscle spasm Oxybutynin Chloride [facility] [address]-21 5 MG Orally Twice a day May 25, 2015 Aug 23, 2015 1 tablet Requip [facility] [address]-72 2 MG Orally Once a day March 14, 2015 1 tablet 1 to 3 hours before bedtime Diclofenac Sodium [facility] [address]-48 75 MG Orally 2 times a day November 10, 2014 Sep 22, 2015 1 tablet by Oral route 2 times per day PRN MetFORMIN HCl ER [facility] [address]-63 500 MG Orally Once a day TAKE ONE TABLET BY MOUTH TWICE DAILY Accupril [facility] [address]-83 20 MG Orally Once a day 1 tablet Procedures Procedure Coding System Code Date [facility] VISIT ESTABLISHED PATIENT CPT-4 G0467 Jul 22, 2015 Office Visit, Est Pt., Level 4 CPT-4 83833 Jul 22, 2015 X-RAY EXAM OF KNEE, 3 CPT-4 30530 Jul 22, 2015 Vital Signs Date/Time: Jul 22, 2015 Temperature 98.2 F Weight 254.8 lbs Height 64 in BMI 43.73 Index Blood Pressure Diastolic 82 mmHg Blood Pressure Systolic 142 mmHg Cardiac Monitoring Heart Rate 82 bpm Results No Known Results Summary Purpose eClinicalWorks Submission
--- OUTSIDE RECORDS SUMMARY | 2019-03-05 11:02 | XMS REPORT ---
Author AARON Santoyo Organization [employer] Address Unknown Phone Unavailable Care Team Providers Care Science Job Titles Name Role Phone AARON DWYER CP Unavailable [...]
--- OUTSIDE RECORDS SUMMARY | 2019-03-05 11:02 | XMS REPORT ---
Author Author REYMUNDO AARON Organization [facility] Address [address] [place] [address] Care Team Providers Care Operating Room Nurse Name Role Phone SALAZAR DWYERE Unavailable PROBLEMS Type Condition ICD9-CM Code [id number] Code Onset Dates Condition Status SNOMED Code Problem Benign essential HTN I10 Active 4623642 Problem Edema extremities R60.0 Active 293195756 Problem SI (stress incontinence), female N39.3 Active 09113023 Assessment Major depressive disorder with single episode, remission status unspecified F32.9 Apr, Active 24932903 Assessment SAMANTHA (secretory otitis media), right H65.91 Apr, Active 72990570 Problem 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 Active 8927154 Problem GERD (gastroesophageal reflux disease) K21.9 Active 578640216 Problem Right hip pain M25.551 Active 24346145 Problem 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 5994825 Problem Controlled restless leg syndrome G25.81 Active 95522570 Problem Knee pain M25.569 Active 10634083 Problem Degenerative arthritis of knee M17.9 Active 301008349 ALLERGIES Substance Reaction Event Type Date Status Codeine Unknown Non Drug Allergy Apr, Active SOCIAL HISTORY No smoking Hx information available PLAN OF CARE VITAL SIGNS Height 64 in 2016-05-22 Weight 233 lbs 2016-05-22 Heart Rate 74 bpm 2016-05-22 Respiratory Rate 18 2016-05-22 BMI 39.99 kg/m2 2016-05-22 Blood pressure systolic 132 mmHg 2016-05-22 Blood pressure diastolic 84 mmHg 2016-05-22 MEDICATIONS Medication Instructions Dosage Frequency Start Date End Date Duration Status Accupril 20 MG Orally Once a day 1 tablet 24h 30 Active Venlafaxine HCl ER 75 MG TAKE ONE CAPSULE BY MOUTH DAILY WITH FOOD 30 Active Oxybutynin Chloride 5 mg Orally Twice a day 1 tablet 12h Active Azithromycin 250 MG Orally Once a day 2 tablets on the first day, then 1 tablet daily for 4 days 24h Apr, May, 5 day(s) Active MetFORMIN HCl ER 500 MG Orally Once a day TAKE ONE TABLET BY MOUTH TWICE DAILY 24h Active RESULTS No Results PROCEDURES Procedure Date Ordered Related Diagnosis Body Site Office Visit, Est Pt., Level 4 May 22, 2016 DEPO MEDROL 40 MG/ML May 22, 2016 DEXAMETHASONE 4MG/ML (PER 1 MG) May 22, 2016 THER/PROPH/DIAG INJ, SC/IM May 22, 2016 IMMUNIZATIONS Vaccine Route Administration Date Status DEXAMETHASONE 4MG/ML (PER 1 MG) IM Intramuscular May 22, 2016 Administered DEPO MEDROL 40 MG/ML IM Intramuscular May 22, 2016 Administered
--- OUTSIDE RECORDS SUMMARY | 2019-03-05 11:03 | XMS REPORT ---
Author Author AARON Martin Organization [facility] Address [address] [place] [address] Care Team Providers Care Adobe Architect Name Role Phone AARON Martin Unavailable PROBLEMS Type Condition ICD9-CM Code PBQ23-YO Code Onset Dates Condition Status SNOMED Code Problem Type 2 diabetes mellitus with diabetic peripheral angiopathy without gangrene, without long-term current use of insulin E11.51 Active 193302576 Problem Controlled restless leg syndrome G25.81 Active 55267795 Problem Benign essential HTN I10 Active 5370785 Problem OAB (overactive bladder) N32.81 Active 325589071 Problem Body mass index (BMI) of 40.0-44.9 in adult Z68.41 Active 469195477 Problem GERD (gastroesophageal reflux disease) K21.9 Active 116081204 Problem Degenerative arthritis of knee M17.9 Active 448838136 Problem Morbid (severe) obesity due to excess calories E66.01 Active 178760147 Problem Mild single current episode of major depressive disorder F32.0 Active 17451638 ALLERGIES No Information ENCOUNTERS Encounter Location Date Diagnosis [facility] [id number] [address] Nov, [facility] [id number] [address] Nov, [facility] [id number] [address] Oct, Degenerative arthritis of knee M17.9 [facility] [id number] [place] [address] Oct, [facility] [id number] [address] Oct, Type 2 diabetes mellitus with diabetic peripheral angiopathy without gangrene, without long-term current use of insulin E11.51 and Controlled substance agreement signed Z79.899 [place] [id number] [place] [address] Oct, Degenerative arthritis of knee M17.9 [place] [id number] [place] [address] Sep, Type 2 diabetes mellitus with diabetic peripheral angiopathy without gangrene, without long-term current use of insulin E11.51 ; Benign essential HTN I10 ; BMI 40.0-44.9, adult Z68.41 ; Mild single current episode of major depressive disorder F32.0 ; OAB (overactive bladder) N32.81 ; Degenerative arthritis of knee M17.9 and GERD (gastroesophageal reflux disease) K21.9 [facility] [id number] [place] [address] Aug, Joint pain and swelling due to Lyme disease A69.20 [place] [address] [address] Jun, [address] [address] May, 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 ; Benign essential HTN I10 ; 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 ; Body mass index (BMI) of 40.0-44.9 in adult Z68.41 and Morbid (severe) obesity due to excess calories E66.01 [place] [id number] [place] [address] May, Encounter for immunization Z23 [address] [address] May, 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 [place] [id number] [place] [address] Mar, Mild single current episode of major depressive disorder F32.0 [place] [id number] [place] [address] Mar, Joint pain and swelling due to Lyme disease A69.20 [place] [id number] [place] [address] Feb, Izzy infection B37.9 [place] [id number] [place] [address] Jan, Insect bite (nonvenomous) of abdominal wall, initial encounter S30.861A and Joint pain and swelling due to Lyme disease A69.20 [place] [id number] [place] [address] Jan, [address] [address] 16 Sep, 2016 Mild single current episode of major depressive disorder F32.0 and 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 [place] [id number] [place] [address] Sep, Controlled restless leg syndrome G25.81 and Cramp of both lower extremities R25.2 [place] [id number] [place] [address] Aug, 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 ; Controlled restless leg syndrome G25.81 ; SI (stress incontinence), female N39.3 ; Benign essential HTN I10 ; 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 ; GERD (gastroesophageal reflux disease) K21.9 ; Screening cholesterol level Z13.220 and Mild single current episode of major depressive disorder F32.0 [place] [id number] [place] [address] Aug, [place] [id number] [place] [address] May, [place] [id number] [place] [address] May, Encounter for immunization Z23 [facility] [id number] [address] 28 Apr, 2016 [facility] [id number] [place] [address] Apr, [place] [id number] [place] [address] Apr, SAMANTHA (secretory otitis media), right H65.91 ; 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 ; Controlled restless leg syndrome G25.81 ; Edema extremities R60.0 ; SI (stress incontinence), female N39.3 ; Benign essential HTN I10 ; Degenerative arthritis of knee M17.9 and Major depressive disorder with single episode, remission status unspecified F32.9 [place] [id number] [place] [address] Apr, OME (otitis media with effusion), right H65.91 [place] [id number] [place] [address] Mar, [place] [id number] [place] [address] Mar, 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 ; Controlled restless leg syndrome G25.81 ; SI (stress incontinence), female N39.3 ; Benign essential HTN I10 ; GERD (gastroesophageal reflux disease) K21.9 ; Knee pain M25.569 and Major depressive disorder with single episode, remission status unspecified F32.9 [place] [address] [address] Mar, [place] [id number] [place] [address] Mar, [place] [id number] [place] [address] Jan, Pre-op exam Z01.818 [place] [id number] [place] [address] Oct, Urinary tract infection N39.0 ; Benign essential HTN I10 ; Controlled restless leg syndrome G25.81 ; Edema extremities R60.0 ; Degenerative arthritis of knee M17.9 and GERD (gastroesophageal reflux disease) K21.9 [place] [address] [address] Oct, Izzy albicans infection B37.9 [place] [id number] [place] [address] Sep, [place] [id number] [place] [address] Sep, UTI (urinary tract infection) N39.0 ; Benign essential HTN I10 ; 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 ; Controlled restless leg syndrome G25.81 ; Edema extremities R60.0 ; SI (stress incontinence), female N39.3 and 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 [place] [id number] [place] [address] Sep, UTI (urinary tract infection) N39.0 [place] [id number] [place] [address] Aug, Pre-op evaluation Z01.818 [place] [address] [address] Aug, [place] [id number] [place] [address] Aug, [place] [id number] [place] [address] Jul, Right hip pain M25.551 ; 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 and Knee pain M25.569 [place] [address] [address] Jul, [place] [id number] [place] [address] Jun, Knee pain M25.569 ; 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 and Degenerative arthritis of knee M17.9 [place] [id number] [place] [address] Jun, [place] [id number] [place] [address] Apr, Diabetes mellitus 250.00 ; Influenza vaccine administered V04.81 ; Incontinence 788.30 ; Restless legs syndrome 333.94 ; Sciatica 724.3 ; Essential hypertension, benign 401.1 ; Edema 782.3 and Depression (emotion) 311 [place] [id number] [place] [address] Mar, Pain in joint, lower leg 719.46 and Sciatica 724.3 [place] [id number] [place] [address] Mar, [place] [id number] [place] [address] Feb, Pain in joint, site unspecified 719.40 ; Other urinary incontinence 788.39 ; Pain in joint, lower leg 719.46 ; Edema 782.3 ; Sciatica 724.3 ; Essential hypertension, benign 401.1 ; Depression 311 ; Diabetes mellitus 250.00 ; Incontinence 788.30 and Restless legs syndrome 333.94 [place] [id number] [place] [address] Feb, [place] [id number] [place] [address] Nov, [place] [id number] [place] [address] Nov, [place] [id number] [place] [address] Oct, [place] [address] [address] Oct, [facility] [place] [facility] [address] [id number] [place] [address] Aug, [facility] [place] [facility] [address] [id number] [place] [address] Aug, [facility] [place] [facility] [address] [id number] [place] [address] Aug, [facility] [place] [facility] [address] [id number] [place] [address] Aug, [facility] [place] [facility] [address] [id number] [place] [address] Aug, [facility] [place] [facility] [address] [id number] [place] [address] Aug, [facility] [place] [facility] [address] [id number] [place] [address] Jun, [facility] [place] [facility] [address] [id number] [address] Jun, [facility] [place] [facility] [address] [id number] [place] [address] Jun, [facility] [place] [facility] [address] [id number] [place] [address] Jun, [facility] [place] [facility] [address] [id number] [address] Jun, [facility] [place] [facility] [address] [id number] [address] Jun, [facility] [place] [facility] [address] [id number] [place] [address] May, [facility] [place] [facility] [address] [id number] [address] May, [facility] [place] [facility] [address] [id number] [address] May, [facility] [place] [facility] [address] [id number] [place] [address] May, [facility] [place] [facility] [address] [id number] [place] [address] Apr, [facility] [place] [facility] [address] [id number] [place] [address] Apr, [facility] [place] [facility] [address] [id number] [place] [address] Apr, [facility] [place] [facility] [address] [id number] [place] [address] Apr, [facility] [place] [facility] [address] [id number] [place] [address] Mar, [facility] [place] [facility] [address] [id number] [place] [address] Mar, [facility] [place] [facility] [address] [id number] [place] [address] Mar, [facility] [place] [facility] [address] [id number] [place] [address] Mar, [facility] [place] [facility] [address] [id number] [place] [address] Mar, [facility] [place] [facility] [address] [id number] [place] [address] Mar, [facility] [place] [facility] [address] [id number] [place] [address] Feb, [facility] [place] [facility] [address] [id number] [place] [address] Feb, [facility] [place] [facility] [address] [id number] [place] [address] Jan, [facility] [place] [facility] [address] [id number] [place] [address] Jan, [facility] [place] [facility] [address] [id number] [place] [address] Jan, [facility] [place] [facility] [address] [id number] [place] [address] Jan, [facility] [place] [facility] [address] [id number] [place] [address] December, [facility] [place] [facility] [address] [id number] [place] [address] December, [facility] [place] [facility] [address] [id number] [place] [address] December, [facility] [place] [facility] [address] [id number] [place] [address] December, [facility] [place] [facility] [address] [id number] [place] [address] December, [facility] [place] [facility] [address] [id number] [place] [address] December, [facility] [place] [facility] [address] [id number] [place] [address] December, [facility] [place] [facility] [address] [id number] [place] [address] December, [facility] [place] [facility] [address] [id number] [place] [address] Nov, [facility] [place] [facility] [address] [id number] [place] [address] Nov, [facility] [place] [facility] [address] [id number] [place] [address] Nov, [facility] [place] [facility] [address] [id number] [place] [address] Nov, [facility] [place] [facility] [address] [id number] [place] [address] Oct, [facility] [place] [facility] [address] [id number] [place] [address] Oct, [facility] [place] [facility] [address] [id number] [place] [address] Oct, [facility] [place] [facility] [address] [id number] [place] [address] Oct, [facility] [place] [facility] [address] [id number] [place] [address] Oct, [facility] [place] [facility] [address] [id number] [place] [address] Oct, [facility] [place] [facility] [address] [id number] [place] [address] Oct, [facility] [place] [facility] [address] [id number] [place] [address] Oct, [facility] [place] [facility] [address] [id number] [place] [address] Sep, [facility] [place] [facility] [address] [facility] [id number] [place] [address] Sep, [facility] [place] [facility] [address] [id number] [place] [address] Sep, [facility] [place] [facility] [address] [id number] [place] [address] Sep, [facility] [place] [facility] [address] [facility] [id number] [place] [address] Sep, [facility] [place] [facility] [address] [facility] [id number] [place] [address] Aug, [facility] [place] [facility] [address] [id number] [place] [address] Aug, [facility] [place] [facility] [address] [id number] [place] [address] Jul, [facility] [place] [facility] [address] [id number] [place] [address] Jul, [facility] [place] [facility] [address] [facility] [id number] [address] Jul, [facility] [place] [facility] [address] [id number] [place] [address] Jul, [facility] [place] [facility] [address] [id number] [place] [address] Jul, [facility] [place] [facility] [address] [id number] [place] [address] Jul, [facility] [place] [facility] [address] [id number] [place] [address] Jul, [facility] [place] [facility] [address] [id number] [place] [address] Jun, [facility] [place] [facility] [address] [id number] [place] [address] Jun, [facility] [place] [facility] [address] [id number] [place] [address] Jun, [facility] [place] [facility] [address] [id number] [place] [address] Jun, [facility] [place] [facility] [address] [id number] [place] [address] Jun, [facility] [place] [facility] [address] [id number] [place] [address] Jun, [facility] [place] [facility] [address] [id number] [place] [address] Jun, [facility] [place] [facility] [address] [id number] [place] [address] Jun, [facility] [place] [facility] [address] [id number] [place] [address] Jun, [facility] [place] [facility] [address] [id number] [place] [address] Jun, [facility] [place] [facility] [address] [id number] [place] [address] 18 Jun, 2013 [facility] [place] [facility] [address] [id number] [place] [address] Jun, [facility] [place] [facility] [address] [id number] [place] [address] Jun, [facility] [place] [facility] [address] [id number] [place] [address] May, [facility] [place] [facility] [address] [id number] [place] [address] May, [facility] [place] [facility] [address] [id number] [place] [address] May, [facility] [place] [facility] [address] [id number] [place] [address] May, [facility] [place] [facility] [address] [id number] [place] [address] May, [facility] [place] [facility] [address] [id number] [place] [address] May, [facility] [place] [facility] [address] [id number] [place] [address] May, [facility] [place] [facility] [address] [id number] [place] [address] May, [facility] [place] [facility] [address] [id number] [place] [address] May, [facility] [place] [facility] [address] [id number] [place] [address] 23 Apr, 2013 [facility] [place] [facility] [address] [id number] [place] [address] 21 Apr, 2013 [facility] [place] [facility] [address] [id number] [place] [address] 11 Apr, 2013 [facility] [place] [facility] [address] [id number] [place] [address] 09 Apr, 2013 [facility] [place] [facility] [address] [id number] [place] [address] 15 Mar, 2013 [facility] [place] [facility] [address] [id number] [place] [address] 14 Mar, 2013 [facility] [address] [id number] [place] [address] Mar, [facility] [address] [id number] [place] [address] Jan, [facility] [address] [id number] [place] [address] Jan, [facility] [address] [id number] [place] [address] Jan, [facility] [address] [id number] [place] [address] Jan, [facility] [address] [id number] [place] [address] December, [facility] [address] [id number] [place] [address] Nov, [facility] [address] [id number] [place] [address] Nov, [facility] [address] [id number] [place] [address] Sep, [facility] [address] [id number] [place] [address] Sep, [facility] [address] [id number] [place] [address] Sep, [facility] [address] [id number] [place] [address] Aug, [facility] [address] [id number] [place] [address] Aug, [facility] [address] [id number] [place] [address] Aug, [facility] [address] [id number] [place] [address] Aug, [facility] [place] [facility] [address] [id number] [place] [address] Aug, [facility] [place] [facility] [address] [id number] [place] [address] Aug, [facility] [place] [facility] [address] [id number] [place] [address] Aug, [facility] [place] [facility] [address] [id number] [place] [address] Jul, [facility] [place] [facility] [address] [id number] [place] [address] Jul, [facility] [place] [facility] [address] [id number] [place] [address] Jun, [facility] [place] [facility] [address] [id number] [place] [address] Jun, [facility] [place] [facility] [address] [id number] [place] [address] May, [facility] [place] [facility] [address] [id number] [place] [address] May, [facility] [place] [facility] [address] [id number] [place] [address] May, [facility] [place] [facility] [address] [id number] [place] [address] May, [facility] [place] [facility] [address] [id number] [place] [address] 26 Apr, 2012 [facility] [place] [facility] [address] [id number] [place] [address] 24 Apr, 2012 [facility] [place] [facility] [address] [id number] [place] [address] 21 Apr, 2012 [facility] [place] [facility] [address] [id number] [place] [address] 20 Apr, 2012 [facility] [place] [facility] [address] [id number] [place] [address] 20 Apr, 2012 [facility] [place] [facility] [address] [id number] [place] [address] 19 Apr, 2012 [facility] [place] [facility] [address] [id number] [place] [address] Apr, [facility] [place] [facility] [address] [id number] [place] [address] Mar, [facility] [place] [facility] [address] [id number] [place] [address] December, [facility] [place] [facility] [address] [id number] [place] [address] December, [facility] [place] [facility] [address] [id number] [place] [address] December, [facility] [place] [facility] [address] [id number] [place] [address] Sep, [facility] [place] [facility] [address] [id number] [place] [address] Sep, [facility] [place] [facility] [address] [id number] [place] [address] Aug, [facility] [place] [facility] [address] [id number] [place] [address] Aug, [facility] [place] [facility] [address] [id number] [place] [address] Aug, [facility] [place] [facility] [address] [id number] [place] [address] Jun, [facility] [place] [facility] [address] [id number] [place] [address] Jun, [facility] [place] [facility] [address] [id number] [place] [address] Jun, [facility] [place] [facility] [address] [id number] [place] [address] Jun, [facility] [address] [facility] [id number] [place] [address] Mar, [facility] [address] [facility] [id number] [place] [address] Jan, [facility] [address] [facility] [id number] [place] [address] December, IMMUNIZATIONS No Known Immunizations SOCIAL HISTORY Never Assessed REASON FOR VISIT PLAN OF CARE VITAL SIGNS MEDICATIONS Medication Instructions Dosage Frequency Start Date End Date Duration Status Oxycodone-Acetaminophen 5-325 MG Orally every 6 hrs 1 tablet as needed 6h Mar, Active RESULTS No Results PROCEDURES No Known [...]
--- OUTSIDE RECORDS SUMMARY | 2019-03-05 11:03 | XMS REPORT ---
Author AARON Santoyo [facility] eClinicalWorks Address Unknown Phone Unavailable Care Team Providers Care Electrotype Molder Name Role Phone AARON DWYER CP Unavailable Allergies, Adverse Reactions, Alerts Substance Reaction Event Type Codeine Info Not Available Non Drug Allergy Problems Problem Type Condition Code Onset Dates Condition Status Assessment Right hip pain M25.551 Active Problem Benign essential HTN I10 Active Problem 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 Active Assessment Knee pain M25.569 Active Assessment Diabetes mellitus due to underlying condition [...] Instructions Start Date End Date Status Dosage MetFORMIN HCl ER [facility] [address]-17 500 MG Orally Once a day TAKE ONE TABLET BY MOUTH TWICE DAILY Venlafaxine HCl ER [facility] [address]-42 75 MG Orally Once a day 1 capsule with food Requip [facility] [address]-64 2 MG Orally Once a day March 14, 2015 1 tablet 1 to 3 hours before bedtime Oxybutynin Chloride [facility] [address]-66 5 MG Orally Twice a day May 25, 2015 Aug 23, 2015 1 tablet Flexeril ND 0 10 mg 2 times a day Jun 18, 2013 Aug 23, 2015 take 1 tablet (10 mg) by oral route 3 times per day PRN take prn muscle spasm Hydrocodone-Acetaminophen [facility] [address]-69 5-325 MG Orally 3 times a day Jul 22, 2015 1 tablet as needed Diclofenac Sodium [facility] [address]-24 75 MG Orally 2 times a day November 10, 2014 Sep 22, 2015 1 tablet by Oral route 2 times per day PRN Accupril [facility] [address]-65 20 MG Orally Once a day 1 tablet Procedures Procedure Coding System Code Date DEPO MEDROL 40 MG/ML CPT-4 J1030 Aug 08, 2015 THER/PROPH/DIAG INJ, SC/IM CPT-4 15422 Aug 08, 2015 X-RAY EXAM OF HIP CPT-4 83054 Aug 08, 2015 [facility] VISIT ESTABLISHED PATIENT CPT-4 G0467 Aug 08, 2015 DEXAMETHASONE 4MG/ML (PER 1 MG) CPT-4 J1100 Aug 08, 2015 Office Visit, Est Pt., Level 4 CPT-4 68349 Aug 08, 2015 Vital Signs Date/Time: Aug 08, 2015 Temperature 97.8 F Weight 254.2 lbs Height 64 in BMI 43.63 Index Blood Pressure Diastolic 70 mmHg Blood Pressure Systolic 116 mmHg Cardiac Monitoring Heart Rate 72 bpm Results No Known Results Summary Purpose eClinicalWorks Submission
--- OUTSIDE RECORDS SUMMARY | 2019-03-05 11:03 | XMS REPORT ---
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
--- OUTSIDE RECORDS SUMMARY | 2019-03-05 11:03 | XMS REPORT ---
Author Author AARON DWYER [facility] eClinicalWorks Address Unknown Phone Unavailable Care Team Providers Care Low Pressure Kettle Operator Name Role Phone AARON DWYER CP Unavailable Allergies, Adverse Reactions, Alerts Substance Reaction Event Type Hydrocodone Info Not Available Non Drug Allergy Problems Problem Type Condition Code Onset Dates Condition Status Assessment Restless legs syndrome 333.94 Active Assessment Influenza vaccine administered V04.81 Active Assessment Incontinence 788.30 Active Problem Controlled restless leg syndrome G25.81 Active Problem Edema extremities R60.0 Active Problem 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 Problem 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 Active Assessment Diabetes mellitus 250.00 Active Problem SI (stress incontinence), female N39.3 Active Problem Benign essential HTN I10 Active Assessment Depression (emotion) 311 Active Assessment Edema 782.3 Active Assessment Essential hypertension, benign 401.1 Active Assessment Sciatica 724.3 Active Medications Medication Code System Code Instructions Start Date End Date Status Dosage Diclofenac Sodium [facility] [address]-46 75 MG Orally 2 times a day November 10, 2014 Sep 22, 2015 1 tablet by Oral route 2 times per day PRN Venlafaxine HCl ER [facility] [address]-33 75 MG Orally Once a day 1 capsule with food Accupril [facility] [address]-14 20 MG Orally Once a day 1 tablet Furosemide [facility] [address]-53 20 MG Once a day March 05, 2014 1 tablet by Oral route 1 time per day take with potassium Flexeril NDC 0 10 mg 2 times a day Jun 18, 2013 Aug 23, 2015 take 1 tablet (10 mg) by oral route 3 times per day PRN take prn muscle spasm Hydrochlorothiazide [facility] [address]-20 12.5 MG Orally Once a day Jul 17, 2013 1 capsule by Oral route 1 time per day Oxybutynin Chloride [facility] [address]-10 5 MG Orally Twice a day May 25, 2015 Aug 23, 2015 1 tablet metformin NDC 0 500 mg March 05, 2014 1 tablet by Oral route 2 times per day Baclofen [facility] [address]-55 10 MG Orally Three times a day as needed Apr 18, 2015 Jun 17, 2015 1 tablet with food or milk Requip [facility] [address]-01 2 MG Orally Once a day March 14, 2015 1 tablet 1 to 3 hours before bedtime MetFORMIN HCl ER [facility] [address]-86 500 MG Orally 2 times a day TAKE ONE TABLET BY MOUTH TWICE DAILY Procedures Procedure Coding System Code Date Office Visit, Est Pt., Level 4 CPT-4 69012 May 25, 2015 FLUARIX QUAD (3 & UP)-GSK-2014 CPT-4 62109 May 25, 2015 [facility] VISIT ESTABLISHED PATIENT CPT-4 G0467 May 25, 2015 ADMN FLU VAC NO FEE SCHED SAME DAY CPT-4 G0008 May 25, 2015 SINGLE IMMUNIZATION ADMIN CPT-4 89424 May 25, 2015 Vital Signs Date/Time: May 25, 2015 Temperature 97.9 F Weight 249.1 lbs Height 64 in BMI 42.75 Index Blood Pressure Diastolic 82 mmHg Blood Pressure Systolic 122 mmHg Cardiac Monitoring Heart Rate 88 bpm Results No Known Results Immunizations Vaccine Administration Date FLUARIX QUAD (3 & UP)-GSK-2014May 25, 2015 Summary Purpose eClinicalWorks Submission
--- OUTSIDE RECORDS SUMMARY | 2019-03-05 11:03 | XMS REPORT ---
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 Active 7449169 Problem Benign essential HTN I10 Active 1442460 Problem Mild single current episode of major depressive disorder F32.0 Active 01211767 Problem GERD (gastroesophageal reflux disease) K21.9 Active 597595497 Problem Knee pain M25.569 Active 80829667 Problem 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 4682093 Problem Right hip pain M25.551 Active 66527957 Problem Degenerative arthritis of knee M17.9 Active 243060878 ALLERGIES Substance Reaction Event Type Date Status Codeine Unknown Non Drug Allergy Aug, Active SOCIAL HISTORY No smoking Hx information available PLAN OF CARE Activity Details Follow Up 3 Months, prn Reason:diab, htn, stress inc VITAL SIGNS Height 64 in 2016-09-18 Weight 232.5 lbs 2016-09-18 Temperature 98.1 degrees Fahrenheit 2016-09-18 Heart Rate 68 bpm 2016-09-18 Respiratory Rate 20 2016-09-18 BMI 39.90 kg/m2 2016-09-18 Blood pressure systolic 112 mmHg 2016-09-18 Blood pressure diastolic 64 mmHg 2016-09-18 MEDICATIONS Medication Instructions Dosage Frequency Start Date End Date Duration Status Oxybutynin Chloride 10 mg Orally Once a day 1 tablet 24h 30 Active Requip 2 MG Orally Once a day 1 tablet 24h Active Venlafaxine HCl ER 75 MG Orally Once a day TAKE ONE CAPSULE BY MOUTH DAILY WITH FOOD 24h 30 Active Accupril 20 MG Orally Once a day 1 tablet 24h 30 Active MetFORMIN HCl ER 500 MG Orally 2 times a day TAKE ONE TABLET 12h 30 Active RESULTS Name Result Date Reference Range A1C (IN HOUSE) 2016-09-18 A1C IN HOUSE 5.9 4.3 - 5.6 % Previous A1c 6.3 Lot [id number] Exp date 06/2018 MICROALBUMIN, URINE (IN HOUSE) 2016-09-18 MICROALBUMIN normal Lot # [id number] Exp date 08/2017 Clarity clear Color yellow ALB 30 CRE 300 A:C (IN HOUSE) <30 Control + Control Lot # Exp date CBC 2016-09-18 WBC 6.9 3.4-10.8 RBC 4.93 3.77-5.28 Hemoglobin 13.3 11.1-15.9 Hematocrit 40.8 34.0-46.6 MCV 83 79-97 MCH 27.0 26.6-33.0 MCHC 32.6 31.5-35.7 RDW 17.3 12.3-15.4 Platelets 314 150-379 Neutrophils 73 Lymphs 19 Monocytes 6 Eos 2 Basos 0 Neutrophils (Absolute) 5.1 1.4-7.0 Lymphs (Absolute) 1.3 0.7-3.1 Monocytes(Absolute) 0.4 0.1-0.9 Eos (Absolute) 0.1 0.0-0.4 Baso (Absolute) 0.0 0.0-0.2 Immature Granulocytes 0 Immature Grans (Abs) 0.0 0.0-0.1 LIPID PANEL 2016-09-18 Cholesterol, Total 213 100-199 Triglycerides 141 0-149 HDL Cholesterol 41 >39 VLDL Cholesterol David 28 5-40 LDL Cholesterol Calc 144 0-99 Comment: CMP 2016-09-18 Glucose, Serum 111 65-99 BUN 9 8-27 Creatinine, Serum 0.64 0.57-1.00 eGFR If NonAfricn Am 95 >59 eGFR If Africn Am 110 >59 BUN/Creatinine Ratio 14 11-26 Sodium, Serum 141 134-144 Potassium, Serum 4.2 3.5-5.2 Chloride, Serum 98 96-106 Carbon Dioxide, Total 27 18-29 Calcium, Serum 9.5 8.7-10.3 Protein, Total, Serum 6.9 6.0-8.5 Albumin, Serum 4.1 3.6-4.8 Globulin, Total 2.8 1.5-4.5 A/G Ratio 1.5 1.1-2.5 Bilirubin, Total 0.3 0.0-1.2 Alkaline Phosphatase, S 120 39-117 AST (SGOT) 17 0-40 ALT (SGPT) 8 0-32 PROCEDURES Procedure Date Ordered Related Diagnosis Body Site LAB NOT BILLED BY [facility] Sep 18, 2016 Office Visit, Est Pt., Level 4 Sep 18, 2016 VENIPUNCT, ROUTINE* Sep 18, 2016 MICROALBUMIN, SEMIQUANT Sep 18, 2016 IMMUNIZATIONS No Known Immunizations
--- OUTSIDE RECORDS SUMMARY | 2019-03-05 11:04 | XMS REPORT ---
Author Author GERA LAM [facility] Address [address] [place] [address] Care Team Providers Care Agriculture Technician Name Role Phone GERA LAM Unavailable PROBLEMS Type Condition ICD9-CM Code ECC05-CV Code Onset Dates Condition Status SNOMED Code Problem Benign essential HTN I10 Active 2409576 Problem Edema extremities R60.0 Active 178862299 Problem SI (stress incontinence), female N39.3 Active 18475469 Assessment OME (otitis media with effusion), right H65.91 Apr, Active 92703170 Problem 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 Active 0474515 Problem GERD (gastroesophageal reflux disease) K21.9 Active 570510086 Problem Right hip pain M25.551 Active 14672928 Problem 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 4942480 Problem Controlled restless leg syndrome G25.81 Active 13726941 Problem Knee pain M25.569 Active 19586286 Problem Degenerative arthritis of knee M17.9 Active 143135745 ALLERGIES Substance Reaction Event Type Date Status Codeine Unknown Non Drug Allergy Apr, Active SOCIAL HISTORY No smoking Hx information available PLAN OF CARE VITAL SIGNS Height 64 in 2016-05-14 Weight 232.1 lbs 2016-05-14 Heart Rate 76 bpm 2016-05-14 Respiratory Rate 20 2016-05-14 BMI 39.84 kg/m2 2016-05-14 Blood pressure systolic 130 mmHg 2016-05-14 Blood pressure diastolic 90 mmHg 2016-05-14 MEDICATIONS Medication Instructions Dosage Frequency Start Date End Date Duration Status PredniSONE 20 mg Orally Once a day, voucher 2 tablets Apr, Apr, 05 days Active MetFORMIN HCl ER 500 MG Orally Once a day TAKE ONE TABLET BY MOUTH TWICE DAILY 24h Active Venlafaxine HCl ER 75 MG TAKE ONE CAPSULE BY MOUTH DAILY WITH FOOD Active Oxycodone-Acetaminophen 5-325 MG Orally every 4 hrs (#60) 1 tablet as needed Feb, Active Oxybutynin Chloride 5 MG Orally Twice a day 1 tablet 12h Active Accupril 20 MG Orally Once a day 1 tablet 24h 30 Active RESULTS No Results PROCEDURES Procedure Date Ordered Related Diagnosis Body Site Office Visit, Est Pt., Level 3 May 14, 2016 IMMUNIZATIONS No Known Immunizations
--- OUTSIDE RECORDS SUMMARY | 2019-03-05 11:04 | XMS REPORT ---
Author AARON Santoyo Organization eClinicalWorks Address Unknown Phone Unavailable Care Team Providers Care Appraisal Specialist Name Role Phone AARON DWYER CP Unavailable [...]
--- OUTSIDE RECORDS SUMMARY | 2019-03-05 11:04 | XMS REPORT ---
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 Active Problem SI (stress incontinence), female N39.3 Active Problem Benign essential HTN I10 Active Assessment Encounter for immunization Z23 Active Problem Right hip pain M25.551 Active Problem Knee pain M25.569 Active Problem GERD (gastroesophageal reflux disease) K21.9 Active Problem Controlled restless leg syndrome G25.81 Active Problem Edema extremities R60.0 Active Problem Degenerative arthritis of knee M17.9 Active Problem 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 [address]-85 5 mg Orally Twice a day 1 tablet Venlafaxine HCl ER [facility] 89420162652 75 MG TAKE ONE CAPSULE BY MOUTH DAILY WITH FOOD MetFORMIN HCl ER [facility] [address]-26 500 MG Orally Once a day TAKE ONE TABLET BY MOUTH TWICE DAILY Accupril [facility] 12463831344 20 MG Orally Once a day 1 tablet Procedures Procedure Coding System Code Date SINGLE IMMUNIZATION ADMIN CPT-4 09483 Jun 05, 2016 FLUARIX QUAD P-FREE 3 AND UP .50 2015 CPT-4 54617 Jun 05, 2016 Results No Known Results Immunizations Vaccine Administration Date FLUARIX QUAD P-FREE 3 AND UP .50 2015Jun 05, 2016 Summary Purpose eClinicalWorks Submission
--- OUTSIDE RECORDS SUMMARY | 2019-03-05 11:04 | XMS REPORT ---
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 Active 5100131 Problem Benign essential HTN I10 Active 0586841 Problem Mild single current episode of major depressive disorder F32.0 Active 82212527 Problem GERD (gastroesophageal reflux disease) K21.9 Active 011986284 Problem Knee pain M25.569 Active 78309967 Problem 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 Surgical History Right Knee Surgery Surgical History Left Knee SOA 03/21/16 Hospitalization History Left Knee SOA 03/21/16
--- OUTSIDE RECORDS SUMMARY | 2019-03-05 11:04 | XMS REPORT ---
Author Author AARON Martin Organization [facility] Address [address] [place] [address] Care Team Providers Care Monorail Operator Name Role Phone AARON Martin Unavailable PROBLEMS Type Condition ICD9-CM Code BPO20-SB Code Onset Dates Condition Status SNOMED Code Problem Type 2 diabetes mellitus with diabetic peripheral angiopathy without gangrene, without long-term current use of insulin E11.51 Active 669137561 Problem Controlled restless leg syndrome G25.81 Active 96409560 Problem Benign essential HTN I10 Active 8368031 Problem OAB (overactive bladder) N32.81 Active 560661367 Problem Body mass index (BMI) of 40.0-44.9 in adult Z68.41 Active 854659941 Problem GERD (gastroesophageal reflux disease) K21.9 Active 457885827 Problem Degenerative arthritis of knee M17.9 Active 056288937 Problem Morbid (severe) obesity due to excess calories E66.01 Active 983952731 Problem Mild single current episode of major depressive disorder F32.0 Active 90078723 ALLERGIES No Information ENCOUNTERS Encounter Location Date Diagnosis [facility] [id number] [address] Nov, [facility] [address] [address] Nov, [facility] [address] [address] Oct, Degenerative arthritis of knee M17.9 [facility] [id number] [place] [address] Oct, [facility] [address] [address] Oct, Type 2 diabetes mellitus with diabetic peripheral angiopathy without gangrene, without long-term current use of insulin E11.51 and Controlled substance agreement signed Z79.899 [place] [id number] [place] [address] Oct, Degenerative arthritis of knee M17.9 [place] [id number] [place] [address] Sep, Type 2 diabetes mellitus with diabetic peripheral angiopathy without gangrene, without long-term current use of insulin E11.51 ; Benign essential HTN I10 ; BMI 40.0-44.9, adult Z68.41 ; Mild single current episode of major depressive disorder F32.0 ; OAB (overactive bladder) N32.81 ; Degenerative arthritis of knee M17.9 and GERD (gastroesophageal reflux disease) K21.9 [place] [id number] [place] [address] Aug, Joint pain and swelling due to Lyme disease A69.20 [place] [address] [address] Jun, [address] [address] May, 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 ; Benign essential HTN I10 ; 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 ; Body mass index (BMI) of 40.0-44.9 in adult Z68.41 and Morbid (severe) obesity due to excess calories E66.01 [place] [id number] [place] [address] May, Encounter for immunization Z23 [address] [address] May, 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 [place] [id number] [place] [address] Mar, Mild single current episode of major depressive disorder F32.0 [place] [address] [place] [address] Mar, Joint pain and swelling due to Lyme disease A69.20 [place] [id number] [place] [address] Feb, Izzy infection B37.9 [place] [id number] [place] [address] Jan, Insect bite (nonvenomous) of abdominal wall, initial encounter S30.861A and Joint pain and swelling due to Lyme disease A69.20 [place] [id number] [place] [address] Jan, [address] [address] 16 Sep, 2016 Mild single current episode of major depressive disorder F32.0 and 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 [place] [id number] [place] [address] Sep, Controlled restless leg syndrome G25.81 and Cramp of both lower extremities R25.2 [place] [id number] [place] [address] Aug, 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 ; Controlled restless leg syndrome G25.81 ; SI (stress incontinence), female N39.3 ; Benign essential HTN I10 ; 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 ; GERD (gastroesophageal reflux disease) K21.9 ; Screening cholesterol level Z13.220 and Mild single current episode of major depressive disorder F32.0 [place] [id number] [place] [address] Aug, [place] [id number] [place] [address] May, [place] [id number] [place] [address] May, Encounter for immunization Z23 [facility] [address] [address] 28 Apr, 2016 [facility] [id number] [place] [address] Apr, [place] [id number] [place] [address] Apr, SAMANTHA (secretory otitis media), right H65.91 ; 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 ; Controlled restless leg syndrome G25.81 ; Edema extremities R60.0 ; SI (stress incontinence), female N39.3 ; Benign essential HTN I10 ; Degenerative arthritis of knee M17.9 and Major depressive disorder with single episode, remission status unspecified F32.9 [place] [id number] [place] [address] Apr, OME (otitis media with effusion), right H65.91 [place] [id number] [place] [address] Mar, [place] [id number] [place] [address] Mar, 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 ; Controlled restless leg syndrome G25.81 ; SI (stress incontinence), female N39.3 ; Benign essential HTN I10 ; GERD (gastroesophageal reflux disease) K21.9 ; Knee pain M25.569 and Major depressive disorder with single episode, remission status unspecified F32.9 [place] [address] [address] Mar, [place] [id number] [place] [address] Mar, [place] [id number] [place] [address] Jan, Pre-op exam Z01.818 [place] [id number] [place] [address] Oct, Urinary tract infection N39.0 ; Benign essential HTN I10 ; Controlled restless leg syndrome G25.81 ; Edema extremities R60.0 ; Degenerative arthritis of knee M17.9 and GERD (gastroesophageal reflux disease) K21.9 [place] [address] [address] Oct, Izzy albicans infection B37.9 [place] [id number] [place] [address] Sep, [place] [id number] [place] [address] Sep, UTI (urinary tract infection) N39.0 ; Benign essential HTN I10 ; 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 ; Controlled restless leg syndrome G25.81 ; Edema extremities R60.0 ; SI (stress incontinence), female N39.3 and 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 [place] [id number] [place] [address] Sep, UTI (urinary tract infection) N39.0 [place] [id number] [place] [address] Aug, Pre-op evaluation Z01.818 [place] [address] [address] Aug, [place] [id number] [place] [address] Aug, [place] [id number] [place] [address] Jul, Right hip pain M25.551 ; 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 and Knee pain M25.569 [place] [address] [address] Jul, [place] [id number] [place] [address] Jun, Knee pain M25.569 ; 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 and Degenerative arthritis of knee M17.9 [place] [id number] [place] [address] Jun, [place] [id number] [place] [address] Apr, Diabetes mellitus 250.00 ; Influenza vaccine administered V04.81 ; Incontinence 788.30 ; Restless legs syndrome 333.94 ; Sciatica 724.3 ; Essential hypertension, benign 401.1 ; Edema 782.3 and Depression (emotion) 311 [place] [id number] [place] [address] Mar, Pain in joint, lower leg 719.46 and Sciatica 724.3 [place] [id number] [place] [address] Mar, [place] [id number] [place] [address] Feb, Pain in joint, site unspecified 719.40 ; Other urinary incontinence 788.39 ; Pain in joint, lower leg 719.46 ; Edema 782.3 ; Sciatica 724.3 ; Essential hypertension, benign 401.1 ; Depression 311 ; Diabetes mellitus 250.00 ; Incontinence 788.30 and Restless legs syndrome 333.94 [place] [id number] [place] [address] Feb, [place] [id number] [place] [address] Nov, [place] [id number] [place] [address] Nov, [place] [id number] [place] [address] Oct, [place] [address] [address] Oct, [facility] [place] [facility] [address] [id number] [place] [address] Aug, [facility] [place] [facility] [address] [id number] [place] [address] Aug, [facility] [place] [facility] [address] [id number] [place] [address] Aug, [facility] [place] [facility] [address] [id number] [place] [address] Aug, [facility] [place] [facility] [address] [id number] [place] [address] Aug, [facility] [place] [facility] [address] [id number] [place] [address] Aug, [facility] [place] [facility] [address] [id number] [place] [address] Jun, [facility] [place] [facility] [address] [id number] [address] Jun, [facility] [place] [facility] [address] [id number] [place] [address] Jun, [facility] [place] [facility] [address] [id number] [place] [address] Jun, [facility] [place] [facility] [address] [id number] [place] [address] Jun, [facility] [place] [facility] [address] [id number] [place] [address] Jun, [facility] [place] [facility] [address] [id number] [place] [address] May, [facility] [place] [facility] [address] [id number] [place] [address] May, [facility] [place] [facility] [address] [id number] [place] [address] May, [facility] [place] [facility] [address] [id number] [place] [address] May, [facility] [place] [facility] [address] [id number] [place] [address] Apr, [facility] [place] [facility] [address] [id number] [place] [address] Apr, [facility] [place] [facility] [address] [id number] [place] [address] Apr, [facility] [place] [facility] [address] [id number] [place] [address] Apr, [facility] [place] [facility] [address] [id number] [place] [address] Mar, [facility] [place] [facility] [address] [id number] [place] [address] Mar, [facility] [place] [facility] [address] [id number] [place] [address] Mar, [facility] [place] [facility] [address] [id number] [place] [address] Mar, [facility] [place] [facility] [address] [id number] [place] [address] Mar, [facility] [place] [facility] [address] [id number] [place] [address] Mar, [facility] [place] [facility] [address] [id number] [place] [address] Feb, [facility] [place] [facility] [address] [id number] [place] [address] Feb, [facility] [place] [facility] [address] [id number] [place] [address] Jan, [facility] [place] [facility] [address] [id number] [place] [address] Jan, [facility] [place] [facility] [address] [id number] [place] [address] Jan, [facility] [place] [facility] [address] [id number] [place] [address] Jan, [facility] [place] [facility] [address] [id number] [place] [address] December, [facility] [place] [facility] [address] [id number] [place] [address] December, [facility] [place] [facility] [address] [id number] [place] [address] December, [facility] [place] [facility] [address] [id number] [place] [address] December, [facility] [place] [facility] [address] [id number] [place] [address] December, [facility] [place] [facility] [address] [id number] [place] [address] December, [facility] [place] [facility] [address] [id number] [place] [address] December, [facility] [place] [facility] [address] [id number] [place] [address] December, [facility] [place] [facility] [address] [id number] [place] [address] Nov, [facility] [place] [facility] [address] [id number] [place] [address] Nov, [facility] [place] [facility] [address] [id number] [place] [address] Nov, [facility] [place] [facility] [address] [id number] [place] [address] Nov, [facility] [place] [facility] [address] [id number] [place] [address] Oct, [facility] [place] [facility] [address] [id number] [place] [address] Oct, [facility] [place] [facility] [address] [id number] [place] [address] Oct, [facility] [place] [facility] [address] [id number] [place] [address] Oct, [facility] [place] [facility] [address] [id number] [place] [address] Oct, [facility] [place] [facility] [address] [id number] [place] [address] Oct, [facility] [place] [facility] [address] [id number] [place] [address] Oct, [facility] [place] [facility] [address] [id number] [place] [address] Oct, [facility] [place] [facility] [address] [id number] [place] [address] Sep, [facility] [place] [facility] [address] [facility] [id number] [place] [address] Sep, [facility] [place] [facility] [address] [id number] [place] [address] Sep, [facility] [place] [facility] [address] [id number] [place] [address] Sep, [facility] [place] [facility] [address] [facility] [id number] [place] [address] Sep, [facility] [place] [facility] [address] [facility] [id number] [place] [address] Aug, [facility] [place] [facility] [address] [id number] [place] [address] Aug, [facility] [place] [facility] [address] [id number] [place] [address] Jul, [facility] [place] [facility] [address] [id number] [place] [address] Jul, [facility] [place] [facility] [address] [facility] [id number] [place] [address] Jul, [facility] [place] [facility] [address] [id number] [place] [address] Jul, [facility] [place] [facility] [address] [id number] [place] [address] Jul, [facility] [place] [facility] [address] [id number] [place] [address] Jul, [facility] [place] [facility] [address] [id number] [place] [address] Jul, [facility] [place] [facility] [address] [id number] [place] [address] Jun, [facility] [place] [facility] [address] [id number] [place] [address] Jun, [facility] [place] [facility] [address] [id number] [place] [address] Jun, [facility] [place] [facility] [address] [id number] [place] [address] Jun, [facility] [place] [facility] [address] [id number] [place] [address] Jun, [facility] [place] [facility] [address] [id number] [place] [address] Jun, [facility] [place] [facility] [address] [id number] [place] [address] Jun, [facility] [place] [facility] [address] [id number] [place] [address] Jun, [facility] [place] [facility] [address] [id number] [place] [address] Jun, [facility] [place] [facility] [address] [id number] [place] [address] Jun, [facility] [place] [facility] [address] [id number] [place] [address] 18 Jun, 2013 [facility] [place] [facility] [address] [id number] [place] [address] Jun, [facility] [place] [facility] [address] [id number] [place] [address] Jun, [facility] [place] [facility] [address] [id number] [place] [address] May, [facility] [place] [facility] [address] [id number] [place] [address] May, [facility] [place] [facility] [address] [id number] [place] [address] May, [facility] [place] [facility] [address] [id number] [place] [address] May, [facility] [place] [facility] [address] [id number] [place] [address] May, [facility] [place] [facility] [address] [id number] [place] [address] May, [facility] [place] [facility] [address] [id number] [place] [address] May, [facility] [place] [facility] [address] [id number] [place] [address] May, [facility] [place] [facility] [address] [id number] [place] [address] May, [facility] [place] [facility] [address] [id number] [place] [address] 23 Apr, 2013 [facility] [place] [facility] [address] [id number] [place] [address] 21 Apr, 2013 [facility] [place] [facility] [address] [id number] [place] [address] 11 Apr, 2013 [facility] [place] [facility] [address] [id number] [place] [address] 09 Apr, 2013 [facility] [place] [facility] [address] [id number] [place] [address] 15 Mar, 2013 [facility] [place] [facility] [address] [id number] [place] [address] 14 Mar, 2013 [facility] [address] [id number] [place] [address] Mar, [facility] [address] [id number] [place] [address] Jan, [facility] [address] [id number] [place] [address] Jan, [facility] [address] [id number] [place] [address] Jan, [facility] [address] [id number] [place] [address] Jan, [facility] [address] [id number] [place] [address] December, [facility] [address] [id number] [place] [address] Nov, [facility] [address] [id number] [place] [address] Nov, [facility] [address] [id number] [place] [address] Sep, [facility] [address] [id number] [place] [address] Sep, [facility] [address] [id number] [place] [address] Sep, [facility] [address] [id number] [place] [address] Aug, [facility] [address] [id number] [place] [address] Aug, [facility] [address] [id number] [place] [address] Aug, [facility] [address] [id number] [place] [address] Aug, [facility] [place] [facility] [address] [id number] [place] [address] Aug, [facility] [place] [facility] [address] [id number] [place] [address] Aug, [facility] [place] [facility] [address] [id number] [place] [address] Aug, [facility] [place] [facility] [address] [id number] [place] [address] Jul, [facility] [place] [facility] [address] [id number] [place] [address] Jul, [facility] [place] [facility] [address] [id number] [place] [address] Jun, [facility] [place] [facility] [address] [id number] [place] [address] Jun, [facility] [place] [facility] [address] [id number] [place] [address] May, [facility] [place] [facility] [address] [id number] [place] [address] May, [facility] [place] [facility] [address] [id number] [place] [address] May, [facility] [place] [facility] [address] [id number] [place] [address] May, [facility] [place] [facility] [address] [id number] [place] [address] 26 Apr, 2012 [facility] [place] [facility] [address] [id number] [place] [address] 24 Apr, 2012 [facility] [place] [facility] [address] [id number] [place] [address] 21 Apr, 2012 [facility] [place] [facility] [address] [id number] [place] [address] 20 Apr, 2012 [facility] [place] [facility] [address] [id number] [place] [address] 20 Apr, 2012 [facility] [place] [facility] [address] [id number] [place] [address] 19 Apr, 2012 [facility] [place] [facility] [address] [id number] [place] [address] Apr, [facility] [place] [facility] [address] [id number] [place] [address] Mar, [facility] [place] [facility] [address] [id number] [place] [address] December, [facility] [place] [facility] [address] [id number] [place] [address] December, [facility] [place] [facility] [address] [id number] [place] [address] December, [facility] [place] [facility] [address] [id number] [place] [address] Sep, [facility] [place] [facility] [address] [id number] [place] [address] Sep, [facility] [place] [facility] [address] [id number] [place] [address] Aug, [facility] [place] [facility] [address] [id number] [place] [address] Aug, [facility] [place] [facility] [address] [id number] [place] [address] Aug, [facility] [place] [facility] [address] [id number] [place] [address] Jun, [facility] [place] [facility] [address] [id number] [place] [address] Jun, [facility] [place] [facility] [address] [id number] [place] [address] Jun, [facility] [place] [facility] [address] [id number] [place] [address] Jun, [facility] [address] [facility] [id number] [place] [address] Mar, [facility] [address] [facility] [id number] [place] [address] Jan, [facility] [address] [facility] [id number] [place] [address] December, IMMUNIZATIONS No Known Immunizations SOCIAL HISTORY Never Assessed REASON FOR VISIT Medication refill request PLAN OF CARE VITAL SIGNS MEDICATIONS Medication Instructions Dosage Frequency Start Date End Date Duration Status Venlafaxine HCl ER 75 MG Orally Once a day TAKE ONE CAPSULE BY MOUTH DAILY WITH FOOD 24h 30 Active RESULTS No Results PROCEDURES [...]
--- OUTSIDE RECORDS SUMMARY | 2019-03-05 11:04 | XMS REPORT ---
Author Author AARON DWYER Organization [facility] Address [address] [place] [address] Care Team Providers Care Paint Roller Covermaker Name Role Phone REYMUNDO AARON Unavailable PROBLEMS Type Condition ICD9-CM Code AWO37-XN Code Onset Dates Condition Status SNOMED Code Problem SI (stress incontinence), female N39.3 Active 57524825 Problem Controlled restless leg syndrome G25.81 Active 32714782 Problem Edema extremities R60.0 Active 347169068 Problem 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 Active 1189341 Problem Benign essential HTN I10 Active 0372409 Problem Mild single current episode of major depressive disorder F32.0 Active 82131403 Problem GERD (gastroesophageal reflux disease) K21.9 Active 280606379 Problem Knee pain M25.569 Active 81788571 Problem 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
--- OUTSIDE RECORDS SUMMARY | 2019-03-05 11:07 | XMS REPORT | Continuity of Care Document ---
Author Organization Unknown Address Unknown Allergies Active Description Code Type Severity Reaction Onset Reported/Identified Relationship to Patient Clinical Status Yes codeine Drug Allergy N/A N/A 09/29/2008 Yes codeine Drug Allergy 09/29/2008 Yes simvastatin Drug Allergy N/A N/A 03/31/2009 Yes simvastatin Drug Allergy 03/31/2009 Yes CODIENE CODIENE Severe N/A 04/11/2010 Yes hydrocodone Drug Allergy N/A N/A 05/18/2013 Yes codeine [id number] Drug Allergy Severe N/A 09/14/2015 Yes codeine [id number] Drug Allergy Severe NAUSEA 03/14/2016 Medications There is no data. Problems Date Dx Coded Attending Type Code Diagnosis Diagnosed By 03/26/2008 SABRA GRAMAJO DO 250.00 DIABETES MELLITUS TYPE II - UNCOMPLICATED, CONTROLLED 03/26/2008 SABRA GRAMAJO DO 787.91 DIARRHEA 03/26/2008 250.00 DIABETES MELLITUS TYPE II - UNCOMPLICATED, CONTROLLED 03/26/2008 787.91 DIARRHEA 03/26/2008 GILDA GARCIA APRN 250.00 DIABETES MELLITUS TYPE II - UNCOMPLICATED, CONTROLLED 03/26/2008 GILDA GARCIA APRN 787.91 DIARRHEA 03/26/2008 GILDA GARCIA APRN 250.00 DIABETES MELLITUS TYPE II - UNCOMPLICATED, CONTROLLED 03/26/2008 GILDA GARCIA APRN 787.91 DIARRHEA 03/26/2008 250.00 DIABETES MELLITUS TYPE II - UNCOMPLICATED, CONTROLLED 03/26/2008 787.91 DIARRHEA 03/26/2008 250.00 DIABETES MELLITUS TYPE II - UNCOMPLICATED, CONTROLLED 03/26/2008 787.91 DIARRHEA 03/26/2008 250.00 DIABETES MELLITUS TYPE II - UNCOMPLICATED, CONTROLLED 03/26/2008 787.91 DIARRHEA 03/26/2008 250.00 DIABETES MELLITUS TYPE II - UNCOMPLICATED, CONTROLLED 03/26/2008 787.91 DIARRHEA 03/26/2008 PHILIP CATHERINE MD 250.00 DIABETES MELLITUS TYPE II - UNCOMPLICATED, CONTROLLED 03/26/2008 PHILIP CATHERINE MD 787.91 DIARRHEA 03/26/2008 GILDA GARCIA APRN S 250.00 DIABETES MELLITUS TYPE II - UNCOMPLICATED, CONTROLLED 03/26/2008 GILDA GARCIA APRN S 787.91 DIARRHEA 03/26/2008 GRAMAJO DO, SABRA K 250.00 DIABETES MELLITUS TYPE II - UNCOMPLICATED, CONTROLLED 03/26/2008 GRAMAJO DO, SABRA K 787.91 DIARRHEA 03/26/2008 GRAMAJO DO, SABRA K 250.00 DIABETES MELLITUS TYPE II - UNCOMPLICATED, CONTROLLED 03/26/2008 GRAMAJO DO, SABRA K 787.91 DIARRHEA 03/26/2008 GRAMAJO DO, SABRA K 250.00 DIABETES MELLITUS TYPE II - UNCOMPLICATED, CONTROLLED 03/26/2008 GRAMAJO DO, SABRA K 787.91 DIARRHEA 03/26/2008 GRAMAJO DO, SABRA K 250.00 DIABETES MELLITUS TYPE II - UNCOMPLICATED, CONTROLLED 03/26/2008 GRAMAJO DO, SABRA K 787.91 DIARRHEA 03/26/2008 GRAMAJO DO, SABRA K 250.00 DIABETES MELLITUS TYPE II - UNCOMPLICATED, CONTROLLED 03/26/2008 GRAMAJO DO, SABRA K 787.91 DIARRHEA 03/26/2008 GRAMAJO DO, SABRA K 250.00 DIABETES MELLITUS TYPE II - UNCOMPLICATED, CONTROLLED 03/26/2008 GRAMAJO DO, SABRA K 787.91 DIARRHEA 03/26/2008 PHILIP CATHERINE MD 250.00 DIABETES MELLITUS TYPE II - UNCOMPLICATED, CONTROLLED 03/26/2008 PHILIP CATHERINE MD 787.91 DIARRHEA 03/26/2008 GRAMAJO DO, SABRA K 250.00 DIABETES MELLITUS TYPE II - UNCOMPLICATED, CONTROLLED 03/26/2008 GRAMAJO DO, SABRA K 787.91 DIARRHEA 03/26/2008 GRAMAJO DO, SABRA K 250.00 DIABETES MELLITUS TYPE II - UNCOMPLICATED, CONTROLLED 03/26/2008 GRAMAJO DO, SABRA K 787.91 DIARRHEA 03/26/2008 GRAMAJO DO, SABRA K 250.00 DIABETES MELLITUS TYPE II - UNCOMPLICATED, CONTROLLED 03/26/2008 GRAMAJO DO, SABRA K 787.91 DIARRHEA 03/26/2008 GRAMAJO DO, SABRA K 250.00 DIABETES MELLITUS TYPE II - UNCOMPLICATED, CONTROLLED 03/26/2008 GRAMAJO DO, SABRA K 787.91 DIARRHEA 03/26/2008 GRAMAJO DO, SABRA K 250.00 DIABETES MELLITUS TYPE II - UNCOMPLICATED, CONTROLLED 03/26/2008 GRAMAJO DO, SABRA K 787.91 DIARRHEA 03/26/2008 GRAMAJO DO, SABRA K 250.00 DIABETES MELLITUS TYPE II - UNCOMPLICATED, CONTROLLED 03/26/2008 GRAMAJO DO, SABRA K 787.91 DIARRHEA 03/26/2008 GRAMAJO DO, SABRA K 250.00 DIABETES MELLITUS TYPE II - UNCOMPLICATED, CONTROLLED 03/26/2008 GRAMAJO DO, SABRA K 787.91 DIARRHEA 03/26/2008 GRAMAJO DO, SABRA K 250.00 DIABETES MELLITUS TYPE II - UNCOMPLICATED, CONTROLLED 03/26/2008 GRAMAJO DO, SABRA K 787.91 DIARRHEA 09/29/2008 GRAMAJO DO, SABRA K 250.02 DIABETES MELLITUS TYPE II - UNCOMPLICATED, UNCONTROLLED 09/29/2008 GRAMAJO DO, SABRA K 701.9 Skin Tag of 09/29/2008 250.02 DIABETES MELLITUS TYPE II - UNCOMPLICATED, UNCONTROLLED 09/29/2008 701.9 Skin Tag of 09/29/2008 MADDISON GARCIA APRNA S 250.02 DIABETES MELLITUS TYPE II - UNCOMPLICATED, UNCONTROLLED 09/29/2008 MADDISON GARCIA APRNA S 701.9 Skin Tag of mm 09/29/2008 CAMILA GARCIA APRNNDA S 250.02 DIABETES MELLITUS TYPE II - UNCOMPLICATED, UNCONTROLLED 09/29/2008 CAMILA GARCIA APRNNDA S 701.9 Skin Tag of mm 09/29/2008 250.02 DIABETES MELLITUS TYPE II - UNCOMPLICATED, UNCONTROLLED 09/29/2008 701.9 Skin Tag of mm 09/29/2008 250.02 DIABETES MELLITUS TYPE II - UNCOMPLICATED, UNCONTROLLED 09/29/2008 701.9 SKIN TAG OF MM 09/29/2008 250.02 DIABETES MELLITUS TYPE II - UNCOMPLICATED, UNCONTROLLED 09/29/2008 701.9 SKIN TAG OF MM 09/29/2008 250.02 DIABETES MELLITUS TYPE II - UNCOMPLICATED, UNCONTROLLED 09/29/2008 701.9 SKIN TAG OF 09/29/2008 PHILIP CATHERINE MD 250.02 DIABETES MELLITUS TYPE II - UNCOMPLICATED, UNCONTROLLED 09/29/2008 PHILIP CATHERINE MD 701.9 SKIN TAG OF MM 09/29/2008 GILDA GARCIA APRN S 250.02 DIABETES MELLITUS TYPE II - UNCOMPLICATED, UNCONTROLLED 09/29/2008 GILDA GARCIA APRN 701.9 SKIN TAG OF MM 09/29/2008 GRAMAJO DO, SABRA K 250.02 DIABETES MELLITUS TYPE II - UNCOMPLICATED, UNCONTROLLED 09/29/2008 GRAMAJO DO, SABRA K 701.9 SKIN TAG OF MM 09/29/2008 GRAMAJO DO, SABRA K 250.02 DIABETES MELLITUS TYPE II - UNCOMPLICATED, UNCONTROLLED 09/29/2008 GRAMAJO DO, SABRA K 701.9 SKIN TAG OF MM 09/29/2008 GRAMAJO DO, SABRA K 250.02 DIABETES MELLITUS TYPE II - UNCOMPLICATED, UNCONTROLLED 09/29/2008 GRAMAJO DO, SABRA K 701.9 SKIN TAG OF MM 09/29/2008 GRAMAJO DO, SABRA K 250.02 DIABETES MELLITUS TYPE II - UNCOMPLICATED, UNCONTROLLED 09/29/2008 GRAMAJO DO, SABRA K 701.9 SKIN TAG OF MM 09/29/2008 GRAMAJO DO, SABRA K 250.02 DIABETES MELLITUS TYPE II - UNCOMPLICATED, UNCONTROLLED 09/29/2008 GRAMAJO DO, SABRA K 701.9 SKIN TAG OF MM 09/29/2008 GRAMAJO DO, SABRA K 250.02 DIABETES MELLITUS TYPE II - UNCOMPLICATED, UNCONTROLLED 09/29/2008 GRAMAJO DO, SABRA K 701.9 SKIN TAG OF MM 09/29/2008 PHILIP CATHERINE MD 250.02 DIABETES MELLITUS TYPE II - UNCOMPLICATED, UNCONTROLLED 09/29/2008 PHILIP CATHERINE MD 701.9 SKIN TAG OF MM 09/29/2008 GRAMAJO DO, SABRA K 250.02 DIABETES MELLITUS TYPE II - UNCOMPLICATED, UNCONTROLLED 09/29/2008 GRAMAJO DO, SABRA K 701.9 SKIN TAG OF MM 09/29/2008 GRAMAJO DO, SABRA K 250.02 DIABETES MELLITUS TYPE II - UNCOMPLICATED, UNCONTROLLED 09/29/2008 GRAMAJO DO, SABRA K 701.9 SKIN TAG OF MM 09/29/2008 GRAMAJO DO, SABRA K 250.02 DIABETES MELLITUS TYPE II - UNCOMPLICATED, UNCONTROLLED 09/29/2008 GRAMAJO DO, SABRA K 701.9 SKIN TAG OF MM 09/29/2008 GRAMAJO DO, SARBA K 250.02 DIABETES MELLITUS TYPE II - UNCOMPLICATED, UNCONTROLLED 09/29/2008 GRAMAJO DO, SABRA K 701.9 SKIN TAG OF MM 09/29/2008 GRAMAJO DO, SABRA K 250.02 DIABETES MELLITUS TYPE II - UNCOMPLICATED, UNCONTROLLED 09/29/2008 GRAMAJO DO, SABRA K 701.9 SKIN TAG OF MM 09/29/2008 GRAMAJO DO, SABRA K 250.02 DIABETES MELLITUS TYPE II - UNCOMPLICATED, UNCONTROLLED 09/29/2008 GRAMAJO DO, SABRA K 701.9 SKIN TAG OF MM 09/29/2008 GRAMAJO DO, SABRA K 250.02 DIABETES MELLITUS TYPE II - UNCOMPLICATED, UNCONTROLLED 09/29/2008 GRAMAJO DO, SABRA K 701.9 SKIN TAG OF MM 09/29/2008 GRAMAJO DO, SABRA K 250.02 DIABETES MELLITUS TYPE II - UNCOMPLICATED, UNCONTROLLED 09/29/2008 GRAMAJO DO, SABRA K 701.9 SKIN TAG OF MM 01/10/2009 GRAMAJO DO, SABRA K 272.2 HYPERLIPIDEMIA, MIXED 01/10/2009 272.2 HYPERLIPIDEMIA, MIXED 01/10/2009 RADHA [employer] MASTER, GILDA S 272.2 HYPERLIPIDEMIA, MIXED 01/10/2009 RADHA [employer], GILDA S 272.2 HYPERLIPIDEMIA, MIXED 01/10/2009 272.2 HYPERLIPIDEMIA, MIXED 01/10/2009 272.2 HYPERLIPIDEMIA, MIXED 01/10/2009 272.2 HYPERLIPIDEMIA, MIXED 01/10/2009 272.2 HYPERLIPIDEMIA, MIXED 01/10/2009 PHILIP CATHERINE MD 272.2 HYPERLIPIDEMIA, MIXED 01/10/2009 RADHA CAI GILDA S 272.2 HYPERLIPIDEMIA, MIXED 01/10/2009 GRAMAJO DO, SABRA K 272.2 HYPERLIPIDEMIA, MIXED 01/10/2009 GRAMAJO DO, SABRA K 272.2 HYPERLIPIDEMIA, MIXED 01/10/2009 GRAMAJO DO, SABRA K 272.2 HYPERLIPIDEMIA, MIXED 01/10/2009 GRAMAJO DO, SABRA K 272.2 HYPERLIPIDEMIA, MIXED 01/10/2009 GRAMAJO DO, SABRA K 272.2 HYPERLIPIDEMIA, MIXED 01/10/2009 GRAMAJO DO, SABRA K 272.2 HYPERLIPIDEMIA, MIXED 01/10/2009 PHILIP CATHERINE MD 272.2 HYPERLIPIDEMIA, MIXED 01/10/2009 GRAMAJO DO, SABRA K 272.2 HYPERLIPIDEMIA, MIXED 01/10/2009 GRAMAJO DO, SABRA K 272.2 HYPERLIPIDEMIA, MIXED 01/10/2009 GRAMAJO DO, SABRA K 272.2 HYPERLIPIDEMIA, MIXED 01/10/2009 GRAMAJO DO, SABRA K 272.2 HYPERLIPIDEMIA, MIXED 01/10/2009 GRAMAJO DO, SABRA K 272.2 HYPERLIPIDEMIA, MIXED 01/10/2009 GRAMAJO DO, SABRA K 272.2 HYPERLIPIDEMIA, MIXED 01/10/2009 GRAMAJO DO, SABRA K 272.2 HYPERLIPIDEMIA, MIXED 01/10/2009 GRAMAJO DO, SABRA K 272.2 HYPERLIPIDEMIA, MIXED 04/08/2009 GRAMAJO DO, SABRA K 719.47 PAIN IN JOINT INVOLVING ANKLE AND FOOT 04/08/2009 GRAMAJO DO, SABRA K 727.41 GANGLION OF JOINT 04/08/2009 719.47 PAIN IN JOINT INVOLVING ANKLE AND FOOT 04/08/2009 727.41 GANGLION OF JOINT 04/08/2009 RADHA CAI GILDA S 719.47 PAIN IN JOINT INVOLVING ANKLE AND FOOT 04/08/2009 RADHA [employer]STER GILDA S 727.41 GANGLION OF JOINT 04/08/2009 RADHA CAI GILDA S 719.47 PAIN IN JOINT INVOLVING ANKLE AND FOOT 04/08/2009 RADHA CAI GILDA S 727.41 GANGLION OF JOINT 04/08/2009 719.47 PAIN IN JOINT INVOLVING ANKLE AND FOOT 04/08/2009 727.41 GANGLION OF JOINT 04/08/2009 719.47 PAIN IN JOINT INVOLVING ANKLE AND FOOT 04/08/2009 727.41 GANGLION OF JOINT 04/08/2009 719.47 PAIN IN JOINT INVOLVING ANKLE AND FOOT 04/08/2009 727.41 GANGLION OF JOINT 04/08/2009 719.47 PAIN IN JOINT INVOLVING ANKLE AND FOOT 04/08/2009 727.41 GANGLION OF JOINT 04/08/2009 PHILIP CATHERINE MD 719.47 PAIN IN JOINT INVOLVING ANKLE AND FOOT 04/08/2009 PHILIP CATHERINE MD 727.41 GANGLION OF JOINT 04/08/2009 RADHA CAI GILDA S 719.47 PAIN IN JOINT INVOLVING ANKLE AND FOOT 04/08/2009 RADHA CAI GILDA S 727.41 GANGLION OF JOINT 04/08/2009 GRAMAJO DO SABRA K 719.47 PAIN IN JOINT INVOLVING ANKLE AND FOOT 04/08/2009 GRAMAJO DO SABRA K 727.41 GANGLION OF JOINT 04/08/2009 GRAMAJO DO SABRA K 719.47 PAIN IN JOINT INVOLVING ANKLE AND FOOT 04/08/2009 GRAMAJO DO SABRA K 727.41 GANGLION OF JOINT 04/08/2009 GRAMAJO DO SABRA K 719.47 PAIN IN JOINT INVOLVING ANKLE AND FOOT 04/08/2009 GRAMAJO DO, SABRA K 727.41 GANGLION OF JOINT 04/08/2009 GRAMAJO DO, SABRA K 719.47 PAIN IN JOINT INVOLVING ANKLE AND FOOT 04/08/2009 GRAMAJO DO, SABRA K 727.41 GANGLION OF JOINT 04/08/2009 GRAMAJO DO, SABRA K 719.47 PAIN IN JOINT INVOLVING ANKLE AND FOOT 04/08/2009 GRAMAJO DO, SABRA K 727.41 GANGLION OF JOINT 04/08/2009 GRAMAJO DO, SABRA K 719.47 PAIN IN JOINT INVOLVING ANKLE AND FOOT 04/08/2009 GRAMAJO DO, SABRA K 727.41 GANGLION OF JOINT 04/08/2009 PHILIP CATHERINE MD 719.47 PAIN IN JOINT INVOLVING ANKLE AND FOOT 04/08/2009 PHILIP CATHERINE MD 727.41 GANGLION OF JOINT 04/08/2009 GRAMAJO DO, SABRA K 719.47 PAIN IN JOINT INVOLVING ANKLE AND FOOT 04/08/2009 GRAMAJO DO, SABRA K 727.41 GANGLION OF JOINT 04/08/2009 GRAMAJO DO, SABRA K 719.47 PAIN IN JOINT INVOLVING ANKLE AND FOOT 04/08/2009 GRAMAJO DO, SABRA K 727.41 GANGLION OF JOINT 04/08/2009 GRAMAJO DO, SABRA K 719.47 PAIN IN JOINT INVOLVING ANKLE AND FOOT 04/08/2009 GRAMAJO DO, SABRA K 727.41 GANGLION OF JOINT 04/08/2009 GRAMAJO DO, SABRA K 719.47 PAIN IN JOINT INVOLVING ANKLE AND FOOT 04/08/2009 GRAMAJO DO, SABRA K 727.41 GANGLION OF JOINT 04/08/2009 GRAMAJO DO, SABRA K 719.47 PAIN IN JOINT INVOLVING ANKLE AND FOOT 04/08/2009 GRAMAJO DO, SABRA K 727.41 GANGLION OF JOINT 04/08/2009 GRAMAJO DO, SABRA K 719.47 PAIN IN JOINT INVOLVING ANKLE AND FOOT 04/08/2009 GRAMAJO DO, SABRA K 727.41 GANGLION OF JOINT 04/08/2009 GRAMAJO DO, SABRA K 719.47 PAIN IN JOINT INVOLVING ANKLE AND FOOT 04/08/2009 GRAMAJO DO, SABRA K 727.41 GANGLION OF JOINT 04/08/2009 GRAMAJO DO, SABRA K 719.47 PAIN IN JOINT INVOLVING ANKLE AND FOOT 04/08/2009 GRAMAJO DO, SABRA K 727.41 GANGLION OF JOINT 04/14/2009 GRAMAJO DO, SABRA K 682.9 CELLULITIS 04/14/2009 682.9 CELLULITIS 04/14/2009 RADHA CAI, GILDA S 682.9 CELLULITIS 04/14/2009 RADHA [employer] MASTER, GILDA S 682.9 CELLULITIS 04/14/2009 682.9 CELLULITIS 04/14/2009 682.9 CELLULITIS 04/14/2009 682.9 CELLULITIS 04/14/2009 682.9 CELLULITIS 04/14/2009 PHILIP CATHERINE MD 682.9 CELLULITIS 04/14/2009 RADHA CAI, GILDA S 682.9 CELLULITIS 04/14/2009 GRAMAJO DO, SABRA K 682.9 CELLULITIS 04/14/2009 GRAMAJO DO, SABRA K 682.9 CELLULITIS 04/14/2009 GRAMAJO DO, SABRA K 682.9 CELLULITIS 04/14/2009 GRAMAJO DO, SABRA K 682.9 CELLULITIS 04/14/2009 GRAMAJO DO, SABRA K 682.9 CELLULITIS 04/14/2009 GRAMAJO DO, SABRA K 682.9 CELLULITIS 04/14/2009 PHILIP CATHERINE MD 682.9 CELLULITIS 04/14/2009 GRAMAJO DO, SABRA K 682.9 CELLULITIS 04/14/2009 GRAMAJO DO, SABRA K 682.9 CELLULITIS 04/14/2009 GRAMAJO DO, SABRA K 682.9 CELLULITIS 04/14/2009 GRAMAJO DO, SABRA K 682.9 CELLULITIS 04/14/2009 GRAMAJO DO, SABRA K 682.9 CELLULITIS 04/14/2009 GRAMAJO DO, SABRA K 682.9 CELLULITIS 04/14/2009 GRAMAJO DO, SABRA K 682.9 CELLULITIS 04/14/2009 GRAMAJO DO, SABRA K 682.9 CELLULITIS 05/13/2009 GRAMAJO DO, SABRA K 110.1 ONYCHOMYCOSIS 05/13/2009 110.1 ONYCHOMYCOSIS 05/13/2009 RADHA CAI, GILDA S 110.1 ONYCHOMYCOSIS 05/13/2009 RADHA CAI, GILDA S 110.1 ONYCHOMYCOSIS 05/13/2009 110.1 ONYCHOMYCOSIS 05/13/2009 110.1 ONYCHOMYCOSIS 05/13/2009 110.1 ONYCHOMYCOSIS 05/13/2009 110.1 ONYCHOMYCOSIS 05/13/2009 PHILIP CATHERINE MD 110.1 ONYCHOMYCOSIS 05/13/2009 RADHAAURELIO CAI, GILDA S 110.1 ONYCHOMYCOSIS 05/13/2009 GRAMAJO DO, SABRA K 110.1 ONYCHOMYCOSIS 05/13/2009 GRAMAJO DO, SABRA K 110.1 ONYCHOMYCOSIS 05/13/2009 GRAMAJO DO, SABRA K 110.1 ONYCHOMYCOSIS 05/13/2009 GRAMAJO DO, SABRA K 110.1 ONYCHOMYCOSIS 05/13/2009 GRAMAJO DO, SABRA K 110.1 ONYCHOMYCOSIS 05/13/2009 GRAMAJO DO, SABRA K 110.1 ONYCHOMYCOSIS 05/13/2009 PHILIP CATHERINE MD 110.1 ONYCHOMYCOSIS 05/13/2009 GRAMAJO DO, SABRA K 110.1 ONYCHOMYCOSIS 05/13/2009 GRAMAJO DO, SABRA K 110.1 ONYCHOMYCOSIS 05/13/2009 GRAMAJO DO, SABRA K 110.1 ONYCHOMYCOSIS 05/13/2009 GRAMAJO DO, SABRA K 110.1 ONYCHOMYCOSIS 05/13/2009 GRAMAJO DO, SABRA K 110.1 ONYCHOMYCOSIS 05/13/2009 GRAMAJO DO, SABRA K 110.1 ONYCHOMYCOSIS 05/13/2009 GRAMAJO DO, SABRA K 110.1 ONYCHOMYCOSIS 05/13/2009 GRAMAJO DO, SABRA K 110.1 ONYCHOMYCOSIS 07/07/2009 GRAMAJO DO, SABRA K 079.99 VIRAL DISEASE 07/07/2009 GRAMAJO DO, SABRA K 786.2 cough 07/07/2009 079.99 VIRAL DISEASE 07/07/2009 786.2 cough 07/07/2009 RADHA [employer] MASTER, GILDA S 079.99 VIRAL DISEASE 07/07/2009 RADHA CAI, GILDA S 786.2 cough 07/07/2009 RADHA [employer], GILDA S 079.99 VIRAL DISEASE 07/07/2009 RADHA [employer], GILDA S 786.2 cough 07/07/2009 079.99 VIRAL DISEASE 07/07/2009 786.2 cough 07/07/2009 079.99 VIRAL DISEASE 07/07/2009 786.2 COUGH 07/07/2009 079.99 VIRAL DISEASE 07/07/2009 786.2 COUGH 07/07/2009 079.99 VIRAL DISEASE 07/07/2009 786.2 COUGH 07/07/2009 PHILIP CATHERINE MD 079.99 VIRAL DISEASE 07/07/2009 PHILIP CATHERINE MD 786.2 COUGH 07/07/2009 RADHA [employer] MASTER, GILDA S 079.99 VIRAL DISEASE 07/07/2009 RADHA [employer] MASTER, GILDA S 786.2 COUGH 07/07/2009 GRAMAJO DO, SABRA K 079.99 VIRAL DISEASE 07/07/2009 GRAMAJO DO, SABRA K 786.2 COUGH 07/07/2009 GRAMAJO DO, SABRA K 079.99 VIRAL DISEASE 07/07/2009 GRAMAJO DO, SABRA K 786.2 COUGH 07/07/2009 GRAMAJO DO, SABRA K 079.99 VIRAL DISEASE 07/07/2009 GRAMAJO DO, SABRA K 786.2 COUGH 07/07/2009 GRAMAJO DO, SABRA K 079.99 VIRAL DISEASE 07/07/2009 GRAMAJO DO, SABRA K 786.2 COUGH 07/07/2009 GRAMAJO DO, SABRA K 079.99 VIRAL DISEASE 07/07/2009 GRAMAJO DO, SABRA K 786.2 COUGH 07/07/2009 GRAMAJO DO, SABRA K 079.99 VIRAL DISEASE 07/07/2009 GRAMAJO DO, SABRA K 786.2 COUGH 07/07/2009 PHILIP CATHERINE MD 079.99 VIRAL DISEASE 07/07/2009 PHILIP CATHERINE MD 786.2 COUGH 07/07/2009 GRAMAJO DO, SABRA K 079.99 VIRAL DISEASE 07/07/2009 GRMAAJO DO, SABRA K 786.2 COUGH 07/07/2009 GRAMAJO DO, SABRA K 079.99 VIRAL DISEASE 07/07/2009 GRAMAJO DO, SABRA K 786.2 COUGH 07/07/2009 GRAMAJO DO, SABRA K 079.99 VIRAL DISEASE 07/07/2009 GRAMAJO DO, SABRA K 786.2 COUGH 07/07/2009 GRAMAJO DO, SABRA K 079.99 VIRAL DISEASE 07/07/2009 GRAMAJO DO, SABRA K 786.2 COUGH 07/07/2009 GRAMAJO DO, SABRA K 079.99 VIRAL DISEASE 07/07/2009 GRAMAJO DO, SABRA K 786.2 COUGH 07/07/2009 GRAMAJO DO, SABRA K 079.99 VIRAL DISEASE 07/07/2009 GRAMAJO DO, SABRA K 786.2 COUGH 07/07/2009 GRAMAJO DO, SABRA K 079.99 VIRAL DISEASE 07/07/2009 GRAMAJO DO, SABRA K 786.2 COUGH 07/07/2009 GRAMAJO DO, SABRA K 079.99 VIRAL DISEASE 07/07/2009 GRAMAJO DO, SABRA K 786.2 COUGH 09/15/2009 GRAMAJO DO, SABRA K 278.00 OBESITY, UNSPECIFIED 09/15/2009 GRAMAJO DO, ASBRA K 296.90 MOOD DISORDER 09/15/2009 GRAMAJO DO, SABRA K 780.79 MALAISE AND FATIGUE 09/15/2009 278.00 OBESITY, UNSPECIFIED 09/15/2009 296.90 MOOD DISORDER 09/15/2009 780.79 MALAISE AND FATIGUE 09/15/2009 RADHA [employer] GILDA S 278.00 OBESITY, UNSPECIFIED 09/15/2009 RADHA CAI GILDA S 296.90 MOOD DISORDER 09/15/2009 RADHA [employer] GILDA S 780.79 MALAISE AND FATIGUE 09/15/2009 RADHA [employer] GILDA S 278.00 OBESITY, UNSPECIFIED 09/15/2009 RADHA CAI GILDA S 296.90 MOOD DISORDER 09/15/2009 RADHA [employer] MASTER, GILDA S 780.79 MALAISE AND FATIGUE 09/15/2009 278.00 OBESITY, UNSPECIFIED 09/15/2009 296.90 MOOD DISORDER 09/15/2009 780.79 MALAISE AND FATIGUE 09/15/2009 278.00 OBESITY, UNSPECIFIED 09/15/2009 296.90 MOOD DISORDER 09/15/2009 780.79 MALAISE AND FATIGUE 09/15/2009 278.00 OBESITY, UNSPECIFIED 09/15/2009 296.90 MOOD DISORDER 09/15/2009 780.79 MALAISE AND FATIGUE 09/15/2009 278.00 OBESITY, UNSPECIFIED 09/15/2009 296.90 MOOD DISORDER 09/15/2009 780.79 MALAISE AND FATIGUE 09/15/2009 PHILIP CATHERINE MD 278.00 OBESITY, UNSPECIFIED 09/15/2009 PHILIP CATHERINE MD 296.90 MOOD DISORDER 09/15/2009 PHILIP CATHERINE MD 780.79 MALAISE AND FATIGUE 09/15/2009 RADHA CAI, GILDA S 278.00 OBESITY, UNSPECIFIED 09/15/2009 RADHA CAI, GILDA S 296.90 MOOD DISORDER 09/15/2009 RADHA CAI GILDA S 780.79 MALAISE AND FATIGUE 09/15/2009 GRAMAJO DO, SABRA K 278.00 OBESITY, UNSPECIFIED 09/15/2009 GRAMAJO DO, SABRA K 296.90 MOOD DISORDER 09/15/2009 GRAMAJO DO, SABRA K 780.79 MALAISE AND FATIGUE 09/15/2009 GRAMAJO DO, SABRA K 278.00 OBESITY, UNSPECIFIED 09/15/2009 GRAMAJO DO, SABRA K 296.90 MOOD DISORDER 09/15/2009 GRAMAJO DO, SABRA K 780.79 MALAISE AND FATIGUE 09/15/2009 GRAMAJO DO, SABRA K 278.00 OBESITY, UNSPECIFIED 09/15/2009 GRAMAJO DO, SABRA K 296.90 MOOD DISORDER 09/15/2009 GRAMAJO DO, SABRA K 780.79 MALAISE AND FATIGUE 09/15/2009 GRAMAJO DO, SABRA K 278.00 OBESITY, UNSPECIFIED 09/15/2009 GRAMAJO DO, SABRA K 296.90 MOOD DISORDER 09/15/2009 GRAMAJO DO, SABRA K 780.79 MALAISE AND FATIGUE 09/15/2009 GRAMAJO DO, SABRA K 278.00 OBESITY, UNSPECIFIED 09/15/2009 GRAMAJO DO, SABRA K 296.90 MOOD DISORDER 09/15/2009 GRAMAJO DO, SABRA K 780.79 MALAISE AND FATIGUE 09/15/2009 GRAMAJO DO, SABRA K 278.00 OBESITY, UNSPECIFIED 09/15/2009 GRAMAJO DO, SABRA K 296.90 MOOD DISORDER 09/15/2009 GRAMAJO DO, SABRA K 780.79 MALAISE AND FATIGUE 09/15/2009 PHILIP CATHERINE MD 278.00 OBESITY, UNSPECIFIED 09/15/2009 PHILIP CATHERINE MD 296.90 MOOD DISORDER 09/15/2009 PHILIP CATHERINE MD 780.79 MALAISE AND FATIGUE 09/15/2009 GRAMAJO DO, SABRA K 278.00 OBESITY, UNSPECIFIED 09/15/2009 GRAMAJO DO, SABRA K 296.90 MOOD DISORDER 09/15/2009 GRAMAJO DO, SABRA K 780.79 MALAISE AND FATIGUE 09/15/2009 GRAMAJO DO, SABRA K 278.00 OBESITY, UNSPECIFIED 09/15/2009 GRAMAJO DO, SABRA K 296.90 MOOD DISORDER 09/15/2009 GRAMAJO DO, SABRA K 780.79 MALAISE AND FATIGUE 09/15/2009 GRAMAJO DO, SABRA K 278.00 OBESITY, UNSPECIFIED 09/15/2009 GRAMAJO DO, SABRA K 296.90 MOOD DISORDER 09/15/2009 GRAMAJO DO, SABRA K 780.79 MALAISE AND FATIGUE 09/15/2009 GRAMAJO DO, SABRA K 278.00 OBESITY, UNSPECIFIED 09/15/2009 GRAMAJO DO, SABRA K 296.90 MOOD DISORDER 09/15/2009 GRAMAJO DO, SABRA K 780.79 MALAISE AND FATIGUE 09/15/2009 GRAMAJO DO, SABRA K 278.00 OBESITY, UNSPECIFIED 09/15/2009 GRAMAJO DO, SABRA K 296.90 MOOD DISORDER 09/15/2009 GRAMAJO DO, SABRA K 780.79 MALAISE AND FATIGUE 09/15/2009 GRAMAJO DO, SABRA K 278.00 OBESITY, UNSPECIFIED 09/15/2009 GRAMAJO DO, SABRA K 296.90 MOOD DISORDER 09/15/2009 GRAMAJO DO, SABRA K 780.79 MALAISE AND FATIGUE 09/15/2009 GRAMAJO DO, SABRA K 278.00 OBESITY, UNSPECIFIED 09/15/2009 GRAMAJO DO, SABRA K 296.90 MOOD DISORDER 09/15/2009 GRAMAJO DO, SABRA K 780.79 MALAISE AND FATIGUE 09/15/2009 GRAMAJO DO, SABRA K 278.00 OBESITY, UNSPECIFIED 09/15/2009 GRAMAJO DO, SABRA K 296.90 MOOD DISORDER 09/15/2009 GRAMAJO DO, SABRA K 780.79 MALAISE AND FATIGUE 04/11/2010 Ot 824.4 04/11/2010 Ot 959.7 04/11/2010 Ot E000.8 04/11/2010 Ot E001.0 04/11/2010 Ot E849.0 04/11/2010 Ot E883.9 10/04/2011 GRAMAJO DO, SABRA K 309.29 EXCITABILITY 10/04/2011 GRAMAJO DO, SABRA K 799.22 IRRITIBILITY 10/04/2011 309.29 EXCITABILITY 10/04/2011 799.22 IRRITIBILITY 10/04/2011 RADHA CAI GILDA S 309.29 EXCITABILITY 10/04/2011 RADHA CAI, GILDA S 799.22 IRRITIBILITY 10/04/2011 CAMILA GARCIA APRNNDA S 309.29 EXCITABILITY 10/04/2011 RADHA CAI GILDA S 799.22 IRRITIBILITY 10/04/2011 309.29 EXCITABILITY 10/04/2011 799.22 IRRITIBILITY 10/04/2011 309.29 EXCITABILITY 10/04/2011 799.22 IRRITIBILITY 10/04/2011 309.29 EXCITABILITY 10/04/2011 799.22 IRRITIBILITY 10/04/2011 309.29 EXCITABILITY 10/04/2011 799.22 IRRITIBILITY 10/04/2011 PHILIP CATHERINE MD 309.29 EXCITABILITY 10/04/2011 PHILIP CATHERINE MD 799.22 IRRITIBILITY 10/04/2011 CAMILA GARCIA APRNNDA S 309.29 EXCITABILITY 10/04/2011 CAMILA GARCIA APRNNDA S 799.22 IRRITIBILITY 10/04/2011 GRAMAJO DO, SABRA K 309.29 EXCITABILITY 10/04/2011 GRAMAJO DO, SABRA K 799.22 IRRITIBILITY 10/04/2011 GRAMAJO DO, SABRA K 309.29 EXCITABILITY 10/04/2011 GRAMAJO DO, SABRA K 799.22 IRRITIBILITY 10/04/2011 GRAMAJO DO, SABRA K 309.29 EXCITABILITY 10/04/2011 GRAMAJO DO, SABRA K 799.22 IRRITIBILITY 10/04/2011 GRAMAJO DO, SABRA K 309.29 EXCITABILITY 10/04/2011 GRAMAJO DO, SABRA K 799.22 IRRITIBILITY 10/04/2011 GRAMAJO DO, SABRA K 309.29 EXCITABILITY 10/04/2011 GRAMAJO DO, SABRA K 799.22 IRRITIBILITY 10/04/2011 GRAMAJO DO, SABRA K 309.29 EXCITABILITY 10/04/2011 GRAMAJO DO, SABRA K 799.22 IRRITIBILITY 10/04/2011 PHILIP CATHERINE MD 309.29 EXCITABILITY 10/04/2011 PHILIP CATHERINE MD 799.22 IRRITIBILITY 10/04/2011 GRAMAJO DO, SABRA K 309.29 EXCITABILITY 10/04/2011 GRAMAJO DO, SABRA K 799.22 IRRITIBILITY 10/04/2011 GRAMAJO DO, SABRA K 309.29 EXCITABILITY 10/04/2011 GRAMAJO DO, SABRA K 799.22 IRRITIBILITY 10/04/2011 GRAMAJO DO, SABRA K 309.29 EXCITABILITY 10/04/2011 GRAMAJO DO, SABRA K 799.22 IRRITIBILITY 10/04/2011 GRAMAJO DO, SABRA K 309.29 EXCITABILITY 10/04/2011 GRAMAJO DO, SABRA K 799.22 IRRITIBILITY 10/04/2011 GRAMAJO DO, SABRA K 309.29 EXCITABILITY 10/04/2011 GRAMAJO DO, SABRA K 799.22 IRRITIBILITY 10/04/2011 GRAMAJO DO, SABRA K 309.29 EXCITABILITY 10/04/2011 GRAMAJO DO, SABRA K 799.22 IRRITIBILITY 10/04/2011 GRAMAJO DO, SABRA K 309.29 EXCITABILITY 10/04/2011 GRAMAJO DO, SABRA K 799.22 IRRITIBILITY 10/04/2011 GRAMAJO DO, SABRA K 309.29 EXCITABILITY 10/04/2011 GRAMAJO DO, SABRA K 799.22 IRRITIBILITY 12/28/2011 GRAMAJO DO, SABRA K 719.40 ARTHRAIGIA UNSPEC 12/28/2011 719.40 ARTHRAIGIA UNSPEC 12/28/2011 GILDA GARCIA APRN 719.40 ARTHRAIGIA UNSPEC 12/28/2011 GILDA GARCIA APRN 719.40 ARTHRAIGIA UNSPEC 12/28/2011 719.40 ARTHRAIGIA UNSPEC 12/28/2011 719.40 ARTHRAIGIA UNSPEC 12/28/2011 719.40 ARTHRAIGIA UNSPEC 12/28/2011 719.40 ARTHRAIGIA UNSPEC 12/28/2011 PHILIP CATHERINE MD 719.40 ARTHRAIGIA UNSPEC 12/28/2011 GILDA GARCIA APRN 719.40 ARTHRAIGIA UNSPEC 12/28/2011 GRAMAJO DO, SABRA K 719.40 ARTHRAIGIA UNSPEC 12/28/2011 GRAMAJO DO, SABRA K 719.40 ARTHRAIGIA UNSPEC 12/28/2011 GRAMAJO DO, SABRA K 719.40 ARTHRAIGIA UNSPEC 12/28/2011 GRAMAJO DO, SABRA K 719.40 ARTHRAIGIA UNSPEC 12/28/2011 GRAMAJO DO, SABRA K 719.40 ARTHRAIGIA UNSPEC 12/28/2011 GRAMAJO DO, SABRA K 719.40 ARTHRAIGIA UNSPEC 12/28/2011 PHILIP CATHERINE MD 719.40 ARTHRAIGIA UNSPEC 12/28/2011 GRAMAJO DO, SABRA K 719.40 ARTHRAIGIA UNSPEC 12/28/2011 GRAMAJO DO, SABRA K 719.40 ARTHRAIGIA UNSPEC 12/28/2011 GRAMAJO DO, SABRA K 719.40 ARTHRAIGIA UNSPEC 12/28/2011 GRAMAJO DO, SABRA K 719.40 ARTHRAIGIA UNSPEC 12/28/2011 GRAMAJO DO, SABRA K 719.40 ARTHRAIGIA UNSPEC 12/28/2011 GRAMAJO DO, SABRA K 719.40 ARTHRAIGIA UNSPEC 12/28/2011 GRAMAJO DO, SABRA K 719.40 ARTHRAIGIA UNSPEC 12/28/2011 GRAMAJO DO, SABRA K 719.40 ARTHRAIGIA UNSPEC 05/14/2012 GRAMAJO DO, SABRA K 729.82 CRAMP OF LIMB 05/14/2012 GRAMAJO DO, SABRA K 786.09 RESPIRATORY ABNORMALITY OTHER 05/14/2012 729.82 CRAMP OF LIMB 05/14/2012 786.09 RESPIRATORY ABNORMALITY OTHER 05/14/2012 GILDA GARCIA APRN S 729.82 CRAMP OF LIMB 05/14/2012 GILDA GARCIA APRN S 786.09 RESPIRATORY ABNORMALITY OTHER 05/14/2012 GILDA GARCIA APRN S 729.82 CRAMP OF LIMB 05/14/2012 GILDA GARCIA APRN S 786.09 RESPIRATORY ABNORMALITY OTHER 05/14/2012 729.82 CRAMP OF LIMB 05/14/2012 786.09 RESPIRATORY ABNORMALITY OTHER 05/14/2012 729.82 CRAMP OF LIMB 05/14/2012 786.09 RESPIRATORY ABNORMALITY OTHER 05/14/2012 729.82 CRAMP OF LIMB 05/14/2012 786.09 RESPIRATORY ABNORMALITY OTHER 05/14/2012 729.82 CRAMP OF LIMB 05/14/2012 786.09 RESPIRATORY ABNORMALITY OTHER 05/14/2012 PHILIP CATHERINE MD 729.82 CRAMP OF LIMB 05/14/2012 PHILIP CATHERINE MD 786.09 RESPIRATORY ABNORMALITY OTHER 05/14/2012 GILDA GARCIA APRN S 729.82 CRAMP OF LIMB 05/14/2012 GILDA GARCIA APRN S 786.09 RESPIRATORY ABNORMALITY OTHER 05/14/2012 GRAMAJO DO, SABRA K 729.82 CRAMP OF LIMB 05/14/2012 GRAMAJO DO, SABRA K 786.09 RESPIRATORY ABNORMALITY OTHER 05/14/2012 GRAMAJO DO, SABRA K 729.82 CRAMP OF LIMB 05/14/2012 GRAMAJO DO, SABRA K 786.09 RESPIRATORY ABNORMALITY OTHER 05/14/2012 GRAMAJO DO, SABRA K 729.82 CRAMP OF LIMB 05/14/2012 GRAMAJO DO, SABRA K 786.09 RESPIRATORY ABNORMALITY OTHER 05/14/2012 GRAMAJO DO, SABRA K 729.82 CRAMP OF LIMB 05/14/2012 GRAMAJO DO, SABRA K 786.09 RESPIRATORY ABNORMALITY OTHER 05/14/2012 GRAMAJO DO, SABRA K 729.82 CRAMP OF LIMB 05/14/2012 GRAMAJO DO, SABRA K 786.09 RESPIRATORY ABNORMALITY OTHER 05/14/2012 GRAMAJO DO, SABRA K 729.82 CRAMP OF LIMB 05/14/2012 GRAMAJO DO, SABRA K 786.09 RESPIRATORY ABNORMALITY OTHER 05/14/2012 PHILIP CATHERINE MD 729.82 CRAMP OF LIMB 05/14/2012 PHILIP CATHERINE MD 786.09 RESPIRATORY ABNORMALITY OTHER 05/14/2012 GRAMAJO DO, SABRA K 729.82 CRAMP OF LIMB 05/14/2012 GRAMAJO DO, SABRA K 786.09 RESPIRATORY ABNORMALITY OTHER 05/14/2012 GRAMAJO DO, SABRA K 729.82 CRAMP OF LIMB 05/14/2012 GRAMAJO DO, SABRA K 786.09 RESPIRATORY ABNORMALITY OTHER 05/14/2012 GRAMAJO DO, SABRA K 729.82 CRAMP OF LIMB 05/14/2012 GRAMAJO DO, SABRA K 786.09 RESPIRATORY ABNORMALITY OTHER 05/14/2012 GRAMAJO DO, SABRA K 729.82 CRAMP OF LIMB 05/14/2012 GRAMAJO DO, SABRA K 786.09 RESPIRATORY ABNORMALITY OTHER 05/14/2012 GRAMAJO DO, SABRA K 729.82 CRAMP OF LIMB 05/14/2012 GRAMAJO DO, SABRA K 786.09 RESPIRATORY ABNORMALITY OTHER 05/14/2012 GRAMAJO DO, SABRA K 729.82 CRAMP OF LIMB 05/14/2012 GRAMAJO DO, SABRA K 786.09 RESPIRATORY ABNORMALITY OTHER 05/14/2012 GRAMAJO DO, SABRA K 729.82 CRAMP OF LIMB 05/14/2012 GRAMAJO DO, SABRA K 786.09 RESPIRATORY ABNORMALITY OTHER 05/14/2012 GRAMAJO DO, SABRA K 729.82 CRAMP OF LIMB 05/14/2012 GRAMAJO DO, SABRA K 786.09 RESPIRATORY ABNORMALITY OTHER 06/17/2012 GRAMAJO DO, SABRA K 133.0 SCABIES 06/17/2012 GRAMAJO DO, SABRA K 698.9 UNSPECIFIED PRURITIC DISORDER 06/17/2012 133.0 SCABIES 06/17/2012 698.9 UNSPECIFIED PRURITIC DISORDER 06/17/2012 CAMILA GARCIA APRNNDA S 133.0 SCABIES 06/17/2012 MADDISON GARCIA APRNA S 698.9 UNSPECIFIED PRURITIC DISORDER 06/17/2012 MADDISON GARCIA APRNA S 133.0 SCABIES 06/17/2012 MADDISON GARCIA APRNA S 698.9 UNSPECIFIED PRURITIC DISORDER 06/17/2012 133.0 SCABIES 06/17/2012 698.9 UNSPECIFIED PRURITIC DISORDER 06/17/2012 133.0 SCABIES 06/17/2012 698.9 UNSPECIFIED PRURITIC DISORDER 06/17/2012 133.0 SCABIES 06/17/2012 698.9 UNSPECIFIED PRURITIC DISORDER 06/17/2012 133.0 SCABIES 06/17/2012 698.9 UNSPECIFIED PRURITIC DISORDER 06/17/2012 PHILIP CATHERINE MD 133.0 SCABIES 06/17/2012 PHILIP CATHERINE MD 698.9 UNSPECIFIED PRURITIC DISORDER 06/17/2012 CAMILA GARCIA APRNNDA S 133.0 SCABIES 06/17/2012 CAMILA GARCIA APRNNDA S 698.9 UNSPECIFIED PRURITIC DISORDER 06/17/2012 GRAMAJO DO, SABRA K 133.0 SCABIES 06/17/2012 GRAMAJO DO, SABRA K 698.9 UNSPECIFIED PRURITIC DISORDER 06/17/2012 GRAMAJO DO, SABRA K 133.0 SCABIES 06/17/2012 GRAMAJO DO, SABRA K 698.9 UNSPECIFIED PRURITIC DISORDER 06/17/2012 GRAMAJO DO, SABRA K 133.0 SCABIES 06/17/2012 GRAMAJO DO, SABRA K 698.9 UNSPECIFIED PRURITIC DISORDER 06/17/2012 GRAMAJO DO, SABRA K 133.0 SCABIES 06/17/2012 GRAMAJO DO, SABRA K 698.9 UNSPECIFIED PRURITIC DISORDER 06/17/2012 GRAMAJO DO, SABRA K 133.0 SCABIES 06/17/2012 GRAMAJO DO, SABRA K 698.9 UNSPECIFIED PRURITIC DISORDER 06/17/2012 GRAMAJO DO, SABRA K 133.0 SCABIES 06/17/2012 GRAMAJO DO, SABRA K 698.9 UNSPECIFIED PRURITIC DISORDER 06/17/2012 PHILIP CATHERINE MD 133.0 SCABIES 06/17/2012 PHILIP CATHERINE MD 698.9 UNSPECIFIED PRURITIC DISORDER 06/17/2012 GRAMAJO DO, SABRA K 133.0 SCABIES 06/17/2012 GRAMAJO DO, SABRA K 698.9 UNSPECIFIED PRURITIC DISORDER 06/17/2012 GRAMAJO DO, SABRA K 133.0 SCABIES 06/17/2012 GRAMAJO DO, SABRA K 698.9 UNSPECIFIED PRURITIC DISORDER 06/17/2012 GRAMAJO DO, SABRA K 133.0 SCABIES 06/17/2012 GRAMAJO DO, SABRA K 698.9 UNSPECIFIED PRURITIC DISORDER 06/17/2012 GRAMAJO DO, SABRA K 133.0 SCABIES 06/17/2012 GRAMAJO DO, SABRA K 698.9 UNSPECIFIED PRURITIC DISORDER 06/17/2012 GRAMAJO DO, SABRA K 133.0 SCABIES 06/17/2012 GRAMAJO DO, SABRA K 698.9 UNSPECIFIED PRURITIC DISORDER 06/17/2012 GRAMAJO DO, SABRA K 133.0 SCABIES 06/17/2012 GRAMAJO DO, SABRA K 698.9 UNSPECIFIED PRURITIC DISORDER 06/17/2012 GRAMAJO DO, SABRA K 133.0 SCABIES 06/17/2012 GRAMAJO DO, SABRA K 698.9 UNSPECIFIED PRURITIC DISORDER 06/17/2012 GRAMAJO DO, SABRA K 133.0 SCABIES 06/17/2012 GRAMAJO DO, SABRA K 698.9 UNSPECIFIED PRURITIC DISORDER 12/04/2012 719.46 PAIN- KNEE 12/04/2012 719.46 PAIN- KNEE 12/04/2012 719.46 PAIN- KNEE 12/04/2012 719.46 PAIN- KNEE 12/04/2012 PHILIP CATHERINE MD 719.46 PAIN- KNEE 12/04/2012 GILDA GARCIA APRN 719.46 PAIN- KNEE 12/04/2012 GRAMAJO DO, SABRA K 719.46 PAIN- KNEE 12/04/2012 GRAMAJO DO, SABRA K 719.46 PAIN- KNEE 12/04/2012 GRAMAJO DO, SABRA K 719.46 PAIN- KNEE 12/04/2012 GRAMAJO DO, SABRA K 719.46 PAIN- KNEE 12/04/2012 GRAMAJO DO, SABRA K 719.46 PAIN- KNEE 12/04/2012 GRAMAJO DO, SABRA K 719.46 PAIN- KNEE 12/04/2012 PHILIP CATHERINE MD 719.46 PAIN- KNEE 12/04/2012 GRAMAJO DO, SABRA K 719.46 PAIN- KNEE 12/04/2012 GRAMAJO DO, SABRA K 719.46 PAIN- KNEE 12/04/2012 GRAMAJO DO, SABRA K 719.46 PAIN- KNEE 12/04/2012 GRAMAJO DO, SABRA K 719.46 PAIN- KNEE 12/04/2012 GRAMAJO DO, SABRA K 719.46 PAIN- KNEE 12/04/2012 GRAMAJO DO, SABRA K 719.46 PAIN- KNEE 12/04/2012 GRAMAJO DO, SABRA K 719.46 PAIN- KNEE 12/04/2012 GRAMAJO DO, SABRA K 719.46 PAIN- KNEE 02/01/2013 SWETA HUTCHINSON, MARYLIN Groves Ot 490 02/01/2013 SWETA HUTCHINSON, MARYLIN Groves Ot 786.2 04/09/2013 724.3 SCIATICA 04/09/2013 PHILIP CATHERINE MD 724.3 SCIATICA 04/09/2013 GILDA GARCIA APRN 724.3 SCIATICA 04/09/2013 GRAMAJO DO, SABRA K 724.3 SCIATICA 04/09/2013 GRAMAJO DO, SABRA K 724.3 SCIATICA 04/09/2013 GRAMAJO DO, SABRA K 724.3 SCIATICA 04/09/2013 GRAMAJO DO, SABRA K 724.3 SCIATICA 04/09/2013 GRAMAJO DO, SABRA K 724.3 SCIATICA 04/09/2013 GRAMAJO DO, SABRA K 724.3 SCIATICA 04/09/2013 DORENE HUTCHINSON, PHILIP 724.3 SCIATICA 04/09/2013 GRAMAJO DO, SABRA K 724.3 SCIATICA 04/09/2013 GRAMAJO DO, SABRA K 724.3 SCIATICA 04/09/2013 GRAMAJO DO, SABRA K 724.3 SCIATICA 04/09/2013 GRAMAJO DO, SABRA K 724.3 SCIATICA 04/09/2013 GRAMAJO DO, SABRA K 724.3 SCIATICA 04/09/2013 GRAMAJO DO, SABRA K 724.3 SCIATICA 04/09/2013 GRAMAJO DO, SABRA K 724.3 SCIATICA 04/09/2013 GRAMAJO DO, SABRA K 724.3 SCIATICA 04/13/2013 ROCÍO HUTCHINSON, ZIGGY T Ot 719.45 04/13/2013 ROCÍO HUTCHINSON, ZIGGY T Ot 724.4 04/13/2013 ROCÍO HUTCHINSON, ZIGGY T Ot 729.5 05/12/2013 GILDA GARCIA ELECTRIC CUTTER OPERATOR Ot 724.3 05/12/2013 GILDA GARCIA ELECTRIC CUTTER OPERATOR Ot V57.1 05/23/2013 JAY HUTCHINSON, CHRISTOPHER Perez Ot 724.2 06/18/2013 GRAMAJO DO, SABRA K 722.2 DISPLACEMENT OF INTERVERTEBRAL DISC SITE UNSPECIFIED WITHOUT MYELOPATHY 06/18/2013 GRAMAJO DO, SABRA K 729.5 PAIN IN LIMB 06/18/2013 GRAMAJO DO, SABRA K 782.0 DISTURBANCE OF SKIN SENSATION 06/18/2013 GRAMAJO DO, SABRA K 722.2 DISPLACEMENT OF INTERVERTEBRAL DISC SITE UNSPECIFIED WITHOUT MYELOPATHY 06/18/2013 GRAMAJO DO, SABRA K 729.5 PAIN IN LIMB 06/18/2013 GRAMAJO DO, SABRA K 782.0 DISTURBANCE OF SKIN SENSATION 06/18/2013 GRAMAJO DO, SABRA K 722.2 DISPLACEMENT OF INTERVERTEBRAL DISC SITE UNSPECIFIED WITHOUT MYELOPATHY 06/18/2013 GRAMAJO DO, SABRA K 729.5 PAIN IN LIMB 06/18/2013 GRAMAJO DO, SABRA K 782.0 DISTURBANCE OF SKIN SENSATION 06/18/2013 GRAMAJO DO, SABRA K 722.2 DISPLACEMENT OF INTERVERTEBRAL DISC SITE UNSPECIFIED WITHOUT MYELOPATHY 06/18/2013 GRAMAJO DO, SABRA K 729.5 PAIN IN LIMB 06/18/2013 GRAMAJO DO, SABRA K 782.0 DISTURBANCE OF SKIN SENSATION 06/18/2013 GRAMAJO DO, SABRA K 722.2 DISPLACEMENT OF INTERVERTEBRAL DISC SITE UNSPECIFIED WITHOUT MYELOPATHY 06/18/2013 GRAMAJO DO, SABRA K 729.5 PAIN IN LIMB 06/18/2013 GRAMAJO DO, SABRA K 782.0 DISTURBANCE OF SKIN SENSATION 06/18/2013 GRAMAJO DO, SABRA K 722.2 DISPLACEMENT OF INTERVERTEBRAL DISC SITE UNSPECIFIED WITHOUT MYELOPATHY 06/18/2013 GRAMAJO DO, SABRA K 729.5 PAIN IN LIMB 06/18/2013 GRAMAJO DO, SABRA K 782.0 DISTURBANCE OF SKIN SENSATION 06/18/2013 PHILIP CATHERINE MD 722.2 DISPLACEMENT OF INTERVERTEBRAL DISC SITE UNSPECIFIED WITHOUT MYELOPATHY 06/18/2013 PHILIP CATHERINE MD 729.5 PAIN IN LIMB 06/18/2013 PHILIP CATHERINE MD 782.0 DISTURBANCE OF SKIN SENSATION 06/18/2013 GRAMAJO DO, SABRA K 722.2 DISPLACEMENT OF INTERVERTEBRAL DISC SITE UNSPECIFIED WITHOUT MYELOPATHY 06/18/2013 GRAMAJO DO, SABRA K 729.5 PAIN IN LIMB 06/18/2013 GRAMAJO DO, SABRA K 782.0 DISTURBANCE OF SKIN SENSATION 06/18/2013 GRAMAJO DO, SABRA K 722.2 DISPLACEMENT OF INTERVERTEBRAL DISC SITE UNSPECIFIED WITHOUT MYELOPATHY 06/18/2013 GRAMAJO DO, SABRA K 729.5 PAIN IN LIMB 06/18/2013 GRAMAJO DO, SABRA K 782.0 DISTURBANCE OF SKIN SENSATION 06/18/2013 GRAMAJO DO, SABRA K 722.2 DISPLACEMENT OF INTERVERTEBRAL DISC SITE UNSPECIFIED WITHOUT MYELOPATHY 06/18/2013 GRAMAJO DO, SABRA K 729.5 PAIN IN LIMB 06/18/2013 GRAMAJO DO, SABRA K 782.0 DISTURBANCE OF SKIN SENSATION 06/18/2013 GRAMAJO DO, SABRA K 722.2 DISPLACEMENT OF INTERVERTEBRAL DISC SITE UNSPECIFIED WITHOUT MYELOPATHY 06/18/2013 GRAMAJO DO, SABRA K 729.5 PAIN IN LIMB 06/18/2013 GRAMAJO DO, SABRA K 782.0 DISTURBANCE OF SKIN SENSATION 06/18/2013 GRAMAJO DO, SABRA K 722.2 DISPLACEMENT OF INTERVERTEBRAL DISC SITE UNSPECIFIED WITHOUT MYELOPATHY 06/18/2013 GRAMAJO DO, SABRA K 729.5 PAIN IN LIMB 06/18/2013 GRAMAJO DO, SABRA K 782.0 DISTURBANCE OF SKIN SENSATION 06/18/2013 GRAMAJO DO, SABRA K 722.2 DISPLACEMENT OF INTERVERTEBRAL DISC SITE UNSPECIFIED WITHOUT MYELOPATHY 06/18/2013 GRAMAJO DO, SABRA K 729.5 PAIN IN LIMB 06/18/2013 GRAMAJO DO, SABRA K 782.0 DISTURBANCE OF SKIN SENSATION 06/18/2013 GRAMAJO DO, SABRA K 722.2 DISPLACEMENT OF INTERVERTEBRAL DISC SITE UNSPECIFIED WITHOUT MYELOPATHY 06/18/2013 GRAMAJO DO, SABRA K 729.5 PAIN IN LIMB 06/18/2013 GRAMAJO DO, SABRA K 782.0 DISTURBANCE OF SKIN SENSATION 06/18/2013 GRAMAJO DO, SABRA K 722.2 DISPLACEMENT OF INTERVERTEBRAL DISC SITE UNSPECIFIED WITHOUT MYELOPATHY 06/18/2013 GRAMAJO DO, SABRA K 729.5 PAIN IN LIMB 06/18/2013 GRAMAJO DO, SABRA K 782.0 DISTURBANCE OF SKIN SENSATION 06/29/2013 GRAMAJO DO, SABRA K V04.81 FLU SHOT 06/29/2013 GRAMAJO DO, SABRA K V04.81 FLU SHOT 06/29/2013 GRAMAJO DO, SABRA K V04.81 FLU SHOT 06/29/2013 GRAMAJO DO, SABRA K V04.81 FLU SHOT 06/29/2013 GRAMAJO DO, SABRA K V04.81 FLU SHOT 06/29/2013 PHILIP CATHERINE MD V04.81 FLU SHOT 06/29/2013 GRAMAJO DO, SABRA K V04.81 FLU SHOT 06/29/2013 GRAMAJO DO, SABRA K V04.81 FLU SHOT 06/29/2013 GRAMAJO DO, SABRA K V04.81 FLU SHOT 06/29/2013 GRAMAJO DO, SABRA K V04.81 FLU SHOT 06/29/2013 GRAMAJO DO, SABRA K V04.81 FLU SHOT 06/29/2013 GRAMAJO DO, SABRA K V04.81 FLU SHOT 06/29/2013 GRAMAJO DO, SABRA K V04.81 FLU SHOT 06/29/2013 GRAMAJO DO, SABRA K V04.81 FLU SHOT 07/17/2013 GRAMAJO DO, SABRA K 401.1 HYPERTENSION, BENIGN ESSENTIAL 07/17/2013 GRAMAJO DO, SABRA K 401.1 HYPERTENSION, BENIGN ESSENTIAL 07/17/2013 GRAMAJO DO, SABRA K 401.1 HYPERTENSION, BENIGN ESSENTIAL 07/17/2013 GRAMAJO DO, SABRA K 401.1 HYPERTENSION, BENIGN ESSENTIAL 07/17/2013 PHILIP CATHERINE MD 401.1 HYPERTENSION, BENIGN ESSENTIAL 07/17/2013 GRAMAJO DO, SABRA K 401.1 HYPERTENSION, BENIGN ESSENTIAL 07/17/2013 GRAMAJO DO, SABRA K 401.1 HYPERTENSION, BENIGN ESSENTIAL 07/17/2013 GRAMAJO DO, SABRA K 401.1 HYPERTENSION, BENIGN ESSENTIAL 07/17/2013 GRAMAJO DO, SABRA K 401.1 HYPERTENSION, BENIGN ESSENTIAL 07/17/2013 GRAMAJO DO, SABRA K 401.1 HYPERTENSION, BENIGN ESSENTIAL 07/17/2013 GRAMAJO DO, SABRA K 401.1 HYPERTENSION, BENIGN ESSENTIAL 07/17/2013 GRAMAJO DO, SABRA K 401.1 HYPERTENSION, BENIGN ESSENTIAL 07/17/2013 GRAMAJO DO, SABRA K 401.1 HYPERTENSION, BENIGN ESSENTIAL 07/23/2013 ANDRES HUTCHINSON, SERGEY Whitten Ot 724.5 07/23/2013 ANDRES HUTCHINSON, SERGEY Whitten Ot 729.5 07/24/2013 GRAMAJO DO, SABRA K 356.9 UNSPECIFIED IDIOPATHIC PERIPHERAL NEUROPATHY 07/24/2013 GRAMAJO DO, SABRA K 356.9 UNSPECIFIED IDIOPATHIC PERIPHERAL NEUROPATHY 07/24/2013 GRAMAJO DO, SABRA K 356.9 UNSPECIFIED IDIOPATHIC PERIPHERAL NEUROPATHY 07/24/2013 PHILIP CATHERINE MD 356.9 UNSPECIFIED IDIOPATHIC PERIPHERAL NEUROPATHY 07/24/2013 GRAMAJO DO, SABRA K 356.9 UNSPECIFIED IDIOPATHIC PERIPHERAL NEUROPATHY 07/24/2013 GRAMAJO DO, SABRA K 356.9 UNSPECIFIED IDIOPATHIC PERIPHERAL NEUROPATHY 07/24/2013 GRAMAJO DO, SABRA K 356.9 UNSPECIFIED IDIOPATHIC PERIPHERAL NEUROPATHY 07/24/2013 GRAMAJO DO, SABRA K 356.9 UNSPECIFIED IDIOPATHIC PERIPHERAL NEUROPATHY 07/24/2013 GRAMAJO DO, SABRA K 356.9 UNSPECIFIED IDIOPATHIC PERIPHERAL NEUROPATHY 07/24/2013 GRAMAJO DO, SABRA K 356.9 UNSPECIFIED IDIOPATHIC PERIPHERAL NEUROPATHY 07/24/2013 GRAMAJO DO, SABRA K 356.9 UNSPECIFIED IDIOPATHIC PERIPHERAL NEUROPATHY 07/24/2013 GRAMAJO DO, SABRA K 356.9 UNSPECIFIED IDIOPATHIC PERIPHERAL NEUROPATHY 10/23/2013 GRAMAJO DO, SABRA K 788.39 OTHER URINARY INCONTINENCE 10/23/2013 PHILIP CATHERINE MD 788.39 OTHER URINARY INCONTINENCE 10/23/2013 GRAMAJO DO, SABRA K 788.39 OTHER URINARY INCONTINENCE 10/23/2013 GRAMAJO DO, SABRA K 788.39 OTHER URINARY INCONTINENCE 10/23/2013 GRAMAJO DO, SABRA K 788.39 OTHER URINARY INCONTINENCE 10/23/2013 GRAMAJO DO, SABRA K 788.39 OTHER URINARY INCONTINENCE 10/23/2013 GRAMAJO DO, SABRA K 788.39 OTHER URINARY INCONTINENCE 10/23/2013 GRAMAJO DO, SABRA K 788.39 OTHER URINARY INCONTINENCE 10/23/2013 GRAMAJO DO, SABRA K 788.39 OTHER URINARY INCONTINENCE 10/23/2013 GRAMAJO DO, SABRA K 788.39 OTHER URINARY INCONTINENCE 12/04/2013 ANNI SALAZAR APRN Ot 724.4 12/04/2013 ANNI SALAZAR APRN Ot 729.5 02/05/2014 MONICA SIMS MD Ot 278.01 02/05/2014 MONICA SIMS MD, Ot 721.3 02/05/2014 MONICA SIMS MD, Ot 722.52 02/05/2014 MONICA SIMS MD, Ot 724.6 02/05/2014 MONICA SIMS MD, Ot 729.1 02/05/2014 MONICA SIMS MD, Ot V58.69 02/05/2014 MONICA SIMS MD, Ot V85.42 03/05/2014 GRAMAJO DO, SABRA K 782.3 EDEMA 03/05/2014 GRAMAJO DO, SABRA K 782.3 EDEMA 03/05/2014 GRAMAJO DO, SABRA K 782.3 EDEMA 03/05/2014 GRAMAJO DO, SABRA K 782.3 EDEMA 03/05/2014 GRAMAJO DO, SABRA K 782.3 EDEMA 03/05/2014 GRAMAJO DO, SABRA K 782.3 EDEMA 03/05/2014 GRAMAJO DO, SABRA K 782.3 EDEMA 04/23/2014 MONICA SIMS MD Ot 278.01 04/23/2014 MONICA SIMS MD, Ot 721.3 04/23/2014 MONICA SIMS MD, Ot 722.52 04/23/2014 MONICA SIMS MD Ot 724.6 04/23/2014 MONICA SIMS MD Ot 729.1 04/23/2014 MONICA SIMS MD Ot V58.69 04/23/2014 MONICA SIMS MD, Ot V85.42 07/07/2014 ZIGGY LONG Ot 722.10 07/07/2014 MONICA SIMS MD Ot 278.01 07/07/2014 MONICA SIMS MD Ot 721.3 07/07/2014 MONICA SIMS MD Ot 722.52 07/07/2014 MONICA SIMS MD Ot 724.6 07/07/2014 MONICA SIMS MD Ot 729.1 07/07/2014 MONICA SIMS MD Ot V58.69 07/07/2014 MONICA SIMS MD Ot V85.42 07/07/2014 MONICA SIMS MD Ot 278.01 07/07/2014 MONICA SIMS MD Ot 721.3 07/07/2014 MONICA SIMS MD Ot 722.52 07/07/2014 MONICA SIMS MD Ot 724.6 07/07/2014 MONICA SIMS MD Ot 729.1 07/07/2014 MONICA SIMS MD Ot V58.69 07/07/2014 MONICA SIMS MD Ot V85.42 07/07/2014 MONICA SIMS MD Ot 278.01 07/07/2014 MONICA SIMS MD Ot 721.3 07/07/2014 MONICA SIMS MD Ot 722.52 07/07/2014 MONICA SIMS MD Ot 724.6 07/07/2014 MONICA SIMS MD Ot 729.1 07/07/2014 MONICA SIMS MD Ot V58.69 07/07/2014 MONICA SIMS MD Ot V85.42 07/07/2014 MONICA SIMS MD Ot 278.01 07/07/2014 MONICA SIMS MD Ot 721.3 07/07/2014 MONICA SIMS MD Ot 722.52 07/07/2014 MONICA SIMS MD Ot 724.6 07/07/2014 MONICA SIMS MD Ot 729.1 07/07/2014 MONICA SIMS MD Ot V58.69 07/07/2014 MONICA SIMS MD Ot V85.42 07/07/2014 ZIGGY LONG Ot 722.10 07/19/2014 ZIGGY LONG Ot 722.10 07/19/2014 MONICA SIMS MD Ot 278.01 07/19/2014 MONICA SIMS MD Ot 721.3 07/19/2014 MONICA SIMS MD Ot 722.52 07/19/2014 MONICA SIMS MD Ot 724.6 07/19/2014 MONICA SIMS MD Ot 729.1 07/19/2014 MONICA SIMS MD Ot V58.69 07/19/2014 MONICA SIMS MD Ot V85.42 07/19/2014 MONICA SIMS MD Ot 278.01 07/19/2014 MONICA SIMS MD Ot 721.3 07/19/2014 MONICA SIMS MD Ot 722.52 07/19/2014 MONICA SIMS MD Ot 724.6 07/19/2014 MONICA SIMS MD Ot 729.1 07/19/2014 MONICA SIMS MD Ot V58.69 07/19/2014 MONICA SIMS MD Ot V85.42 09/07/2014 SABRA GRAMAJO DO 719.46 PAIN- KNEE 04/15/2015 MONICA SIMS MD Ot 278.01 04/15/2015 MONICA SIMS MD Ot 721.3 04/15/2015 MONICA SIMS MD, Ot 724.6 04/15/2015 MONICA SIMS MD Ot 729.1 04/15/2015 MONICA SIMS MD Ot V58.69 04/15/2015 MONICA SIMS MD Ot V85.41 07/09/2015 ANNI SALAZAR APRN Ot M17.9 07/09/2015 ANNI SALAZAR APRN Ot M54.41 07/09/2015 ANNI SALAZAR APRN Ot M79.661 09/17/2015 AURA CASTILLO MD Ot E11.9 TYPE 2 DIABETES MELLITUS WITHOUT COMPLIC 09/17/2015 AURA CASTILLO MD, Ot I10 ESSENTIAL (PRIMARY) HYPERTENSION 09/17/2015 AURA CASTILLO MD, Ot M17.11 UNILATERAL PRIMARY OSTEOARTHRITIS, RIGHT 10/03/2015 AURA CASTILLO MD, Ot M17.11 10/03/2015 AURA CASTILLO MD Ot R53.83 10/03/2015 AURA CASTILLO MD, Ot Z01.810 10/03/2015 ANNA HUTCHINSON, AURA P Ot Z01.811 10/03/2015 ANNA HUTCHINSON, AURA P Ot Z01.812 10/03/2015 ANNA HUTCHINSON, AURA P Ot Z11.2 10/10/2015 ANNA HUTCHINSON, AURA P Ot M17.11 10/10/2015 ANNA HUTCHINSON, AURA P Ot R53.83 10/10/2015 ANNA HUTCHINSON, AURA P Ot Z01.810 10/10/2015 ANNA HUTCHINSON, AURA P Ot Z01.811 10/10/2015 ANNA HUTCHINSON, AURA P Ot Z01.812 10/10/2015 ANNA HUTCHINSON, AURA P Ot Z11.2 10/10/2015 ANNA HUTCHINSON, AURA P Ot M17.11 10/10/2015 ANNA HUTCHINSON, AURA P Ot R53.83 10/10/2015 ANNA HUTCHINSON, AURA P Ot Z01.810 10/10/2015 ANNA HUTCHINSON, AURA P Ot Z01.811 10/10/2015 ANNA HUTCHINSON, AURA P Ot Z01.812 10/10/2015 ANNA HUTCHINSON, AURA P Ot Z11.2 12/19/2015 ANNA HUTCHINSON, AURA Matta Ot M17.11 UNILATERAL PRIMARY OSTEOARTHRITIS, RIGHT 12/19/2015 ANNA HUTCHINSON, AURA P Ot R53.83 OTHER FATIGUE 12/19/2015 ANNA HUTCHINSON, AURA Matta Ot Z01.810 ENCOUNTER FOR PREPROCEDURAL CARDIOVASCUL 12/19/2015 ANNA HUTCHINSON, AURA Matta Ot Z01.811 ENCOUNTER FOR PREPROCEDURAL RESPIRATORY 12/19/2015 ANNA HUTCHINSON, AURA P Ot Z01.812 ENCOUNTER FOR PREPROCEDURAL LABORATORY E 12/19/2015 ANNA HUTCHINSON, AURA P Ot Z11.2 ENCOUNTER FOR SCREENING FOR OTHER BACTER 03/14/2016 ANNA HUTCHINSON, AURA Matta Ot Z01.812 ENCOUNTER FOR PREPROCEDURAL LABORATORY E 03/14/2016 ANNA HUTCHINSON, AURA Matta Ot Z01.812 ENCOUNTER FOR PREPROCEDURAL LABORATORY E 03/14/2016 ANNA HUTCHINSON, AURA Matta Ot Z01.812 ENCOUNTER FOR PREPROCEDURAL LABORATORY E 03/14/2016 ZAFUAURA OSEI MD Ot M17.12 UNILATERAL PRIMARY OSTEOARTHRITIS, LEFT 03/14/2016 AURA CASTILLO MD Ot R53.83 OTHER FATIGUE 03/14/2016 AURA CASTILLO MD Ot Z01.810 ENCOUNTER FOR PREPROCEDURAL CARDIOVASCUL 03/14/2016 AURA CASTILLO MD Ot Z01.811 ENCOUNTER FOR PREPROCEDURAL RESPIRATORY 03/14/2016 AURA CASTILLO MD Ot Z01.812 ENCOUNTER FOR PREPROCEDURAL LABORATORY E 03/14/2016 AURA CASTILLO MD Ot Z11.2 ENCOUNTER FOR SCREENING FOR OTHER BACTER 03/15/2016 AURA CASTILLO MD Ot M17.12 UNILATERAL PRIMARY OSTEOARTHRITIS, LEFT 03/15/2016 AURA CASTILLO MD Ot R53.83 OTHER FATIGUE 03/15/2016 AURA CASTILLO MD Ot Z01.810 ENCOUNTER FOR PREPROCEDURAL CARDIOVASCUL 03/15/2016 AURA CASTILLO MD Ot Z01.811 ENCOUNTER FOR PREPROCEDURAL RESPIRATORY 03/15/2016 AURA CASTILLO MD Ot Z01.812 ENCOUNTER FOR PREPROCEDURAL LABORATORY E 03/15/2016 AURA CASTILLO MD Ot Z11.2 ENCOUNTER FOR SCREENING FOR OTHER BACTER 03/24/2016 AURA CASTILLO MD Ot E11.9 TYPE 2 DIABETES MELLITUS WITHOUT COMPLIC 03/24/2016 AURA CASTILLO MD Ot I10 ESSENTIAL (PRIMARY) HYPERTENSION 03/24/2016 AURA CASTILLO MD Ot M17.12 UNILATERAL PRIMARY OSTEOARTHRITIS, LEFT 07/10/2016 AURA CASTILLO MD Ot M17.11 UNILATERAL PRIMARY OSTEOARTHRITIS, RIGHT 07/10/2016 AURA CASTILLO MD Ot R53.83 OTHER FATIGUE 07/10/2016 AURA CASTILLO MD Ot Z01.810 ENCOUNTER FOR PREPROCEDURAL CARDIOVASCUL 07/10/2016 AURA CASTILLO MD Ot Z01.811 ENCOUNTER FOR PREPROCEDURAL RESPIRATORY 07/10/2016 AURA CASTILLO MD Ot Z01.812 ENCOUNTER FOR PREPROCEDURAL LABORATORY E 07/10/2016 AURA CASTILLO MD P Ot Z11.2 ENCOUNTER FOR SCREENING FOR OTHER BACTER Procedures Code [place] [address] ROUTINE VENIPUNCTURE 09/09/2012 67624 SLEEP STUDY 09/09/2012 Sonu Boothe 09/09/2012 20282 A1C (IN-HOUSE) 09/09/2012 57267 MICRO ALBUMIN-IN HOUSE 09/09/2012 80174 CMP 09/09/2012 47519 LIPID PANEL 09/09/2012 [id number] GFR CALC (RESULT ONLY) 09/09/2012 18763 INSULIN LEVEL 09/10/2012 81214 XRAY KNEE LEFT 3 VIEWS 12/04/2012 02114 A1C (IN-HOUSE) 01/05/2013 44828 A1C (IN-HOUSE) 04/09/2013 87582 MICRO ALBUMIN-IN HOUSE 04/09/2013 J2930 SOLUMEDROL INJ 04/09/2013 43127 THERAPUTIC INJ SQ/IM 04/09/2013 00478 ROUTINE VENIPUNCTURE 06/18/2013 35666 MRI SPINE (LUMBAR) W/O CONTRAST 06/18/2013 77976 CMP 06/18/2013 82924 A1C (IN-HOUSE) 07/17/2013 93250 MRI SPINE (LUMBAR) W/O CONTRAST 07/24/2013 77090 MRI PELVIS W/O DYE 07/24/2013 26881 THERAPUTIC INJ SQ/IM 01/26/2014 J1885 TORADOL INJ 01/26/2014 75602 THERAPUTIC INJ SQ/IM 04/19/2014 J1885 TORADOL INJ 04/19/2014 35574 THERAPUTIC INJ SQ/IM 04/20/2014 J1885 TORADOL INJ 04/20/2014 J1100 DEXAMETHASONE SODIUM PHOS, 1 MG 04/20/2014 03196 THERAPUTIC INJ SQ/IM 05/17/2014 J1885 TORADOL INJ 05/17/2014 17681 JOINT INJECTION- LARGE JOINT (SPECIFY MEDCIN DESCRIPTION) 09/07/2014 [id number] REPLACE OF R KNEE JT WITH SYNTH SUB, DAMARI 09/14/2015 [id number] REPLACE OF L KNEE JT WITH SYNTH SUB, DAMARI 03/21/2016 Results Test Result Range Whole blood hemoglobin and hematocrit panel - 03/23/16 05:51 Venous blood hemoglobin measurement (mass/volume) 8.3 g/dL 11.5-16.0 Blood hematocrit (volume fraction) 26 % 35-52 Whole blood hemoglobin and hematocrit panel - 07/30/16 05:34 Venous blood hemoglobin measurement (mass/volume) 8.0 g/dL 11.5-16.0 Blood hematocrit (volume fraction) 24 % 35-52 CMP - 06/30/18 09:45 GLUCOSE 136 mg/dL 65-99 UREA NITROGEN (BUN) 12 mg/dL 7-25 CREATININE 0.65 mg/dL 0.50-0.99 eGFR NON-AFR. WELSH 93 mL/min/1.73m2 > OR=60 eGFR 108 mL/min/1.73m2 > OR=60 BUN/CREATININE RATIO NOT APPLICABLE (calc) 6-22 SODIUM 138 mmol/L 135-146 POTASSIUM 4.3 mmol/L 3.5-5.3 CHLORIDE 103 mmol/L 98-110 CARBON DIOXIDE 28 mmol/L 20-32 CALCIUM 9.8 mg/dL 8.6-10.4 PROTEIN, TOTAL 6.8 g/dL 6.1-8.1 ALBUMIN 4.3 g/dL 3.6-5.1 GLOBULIN 2.5 g/dL (calc) 1.9-3.7 ALBUMIN/GLOBULIN RATIO 1.7 (calc) 1.0-2.5 BILIRUBIN, TOTAL 0.4 mg/dL 0.2-1.2 ALKALINE PHOSPHATASE 99 U/L 33-130 AST 16 U/L 10-35 ALT 8 U/L 6-29 Complete blood count (CBC) with automated white blood cell (WBC) differential - 03/05/19 07:20 Blood leukocytes automated count (number/volume) 12.2 10*3/uL 4.3-11.0 Blood erythrocytes automated count (number/volume) 4.92 10*6/uL 4.35-5.85 Venous blood hemoglobin measurement (mass/volume) 14.1 g/dL 11.5-16.0 Blood hematocrit (volume fraction) 41 % 35-52 Automated erythrocyte mean corpuscular volume 84 [foz_us] 80-99 Automated erythrocyte mean corpuscular hemoglobin (mass per erythrocyte) 29 pg 25-34 Automated erythrocyte mean corpuscular hemoglobin concentration measurement (mass/volume) 34 g/dL 32-36 Automated erythrocyte distribution width ratio 14.2 % 10.0- 14.5 Automated blood platelet count (count/volume) 280 10*3/uL 130-400 Automated blood platelet mean volume measurement 9.5 [foz_us] 7.4-10.4 Automated blood neutrophils/100 leukocytes 83 % 42-75 Automated blood lymphocytes/100 leukocytes 11 % 12-44 Blood monocytes/100 leukocytes 5 % 0-12 Automated blood eosinophils/100 leukocytes 0 % 0-10 Automated blood basophils/100 leukocytes 0 % 0-10 Blood neutrophils automated count (number/volume) 10.2 10*3 1.8-7.8 Blood lymphocytes automated count (number/volume) 1.4 10*3 1.0-4.0 Blood monocytes automated count (number/volume) 0.6 10*3 0.0- 1.0 Automated eosinophil count 0.0 10*3/uL 0.0-0.3 Automated blood basophil count (count/volume) 0.0 10*3/uL 0.0-0.1 PT panel in platelet poor plasma by coagulation assay - 03/05/19 07:20 Prothrombin time (PT) in platelet poor plasma by coagulation assay 12.9 s 12.2-14.7 INR in platelet poor plasma or blood by coagulation assay 0.9 0.8-1.4 Activated partial thromboplastin time (aPTT) in platelet poor plasma bycoagulation assay - 03/05/19 07:20 Activated partial thromboplastin time (aPTT) in platelet poor plasma bycoagulation assay 27 s 24-35 Comprehensive metabolic panel - 03/05/19 07:20 Serum or plasma sodium measurement (moles/volume) 137 mmol/L 135-145 Serum or plasma potassium measurement (moles/volume) 4.0 mmol/L 3.6-5.0 Serum or plasma chloride measurement (moles/volume) 101 mmol/L 98-107 Carbon dioxide 23 mmol/L 21-32 Serum or plasma anion gap determination (moles/volume) 13 mmol/L 5-14 Serum or plasma urea nitrogen measurement (mass/volume) 13 mg/dL 7-18 Serum or plasma creatinine measurement (mass/volume) 0.77 mg/dL 0.60-1.30 Serum or plasma urea nitrogen/creatinine mass ratio 17 NRG Serum or plasma creatinine measurement with calculation of estimated glomerular filtration rate > NRG Serum or plasma glucose measurement (mass/volume) 148 mg/dL 70-105 Serum or plasma calcium measurement (mass/volume) 10.2 mg/dL 8.5-10.1 Serum or plasma total bilirubin measurement (mass/volume) 0.4 mg/dL 0.1-1.0 Serum or plasma alkaline phosphatase measurement (enzymatic activity/volume) 98 U/L 40-136 Serum or plasma aspartate aminotransferase measurement (enzymatic activity/volume) 17 U/L 5-34 Serum or plasma alanine aminotransferase measurement (enzymatic activity/volume) 10 U/L 0-55 Serum or plasma protein measurement (mass/volume) 7.7 g/dL 6.4-8.2 Serum or plasma albumin measurement (mass/volume) 4.2 g/dL 3.2-4.5 CALCIUM CORRECTED 10.0 mg/dL 8.5-10.1 Magnesium - 03/05/19 07:20 Magnesium 1.5 mg/dL 1.8-2.4 Lipase - 03/05/19 07:20 Lipase 8 U/L 8-78 Serum or plasma troponin i.cardiac measurement (mass/volume) - 03/05/19 07:20 Serum or plasma troponin i.cardiac measurement (mass/volume) < ng/mL <0.028 Myoglobin, serum - 03/05/19 07:20 Myoglobin, serum 91.5 ng/mL 10.0-92.0 Encounters ACCT No. Visit Date/Time Discharge Status Pt. Type Provider Facility Loc./Unit Complaint [id number] 09/07/2014 15:02:00 09/07/2014 23:59:59 CLS Outpatient SABRA GRAMAJO DO [id number] 09/03/2014 15:43:00 09/03/2014 23:59:59 CLS Outpatient SABRA GRAMAJO DO [id number] 05/17/2014 13:27:00 05/17/2014 23:59:59 CLS Outpatient SABRA GRAMAJO DO [id number] 05/17/2014 13:27:00 05/17/2014 23:59:59 CLS Outpatient SABRA GRAMAJO DO [id number] 04/20/2014 09:51:00 04/20/2014 23:59:59 CLS Outpatient SABRA GRAMAJO DO [id number] 04/19/2014 10:05:00 04/19/2014 23:59:59 CLS Outpatient SABRA GRAMAJO DO [id number] 03/05/2014 13:37:00 03/05/2014 23:59:59 CLS Outpatient SABRA GRAMAJO DO [id number] 01/26/2014 16:00:00 01/26/2014 23:59:59 CLS Outpatient GRAMAJO DOSABRA [id number] 10/23/2013 13:39:00 10/23/2013 23:59:59 CLS Outpatient GRAMAJO DOSABRA [id number] 07/24/2013 15:17:00 07/24/2013 23:59:59 CLS Outpatient GRAMAJO DOSABRA [id number] 07/17/2013 12:58:00 07/17/2013 23:59:59 CLS Outpatient GRAMAJO DOSABRA [id number] 07/17/2013 12:58:00 07/17/2013 23:59:59 CLS Outpatient GRAMAJO DOSABRA [id number] 06/29/2013 11:02:00 06/29/2013 23:59:59 CLS Outpatient GRAMAJO DOSABRA [id number] 06/18/2013 10:37:00 06/18/2013 23:59:59 CLS Outpatient GRAMAJO DOSABRA [id number] 05/18/2013 17:42:00 05/18/2013 23:59:59 CLS Outpatient GILDA GARCIA APRN [id number] 04/09/2013 07:54:00 04/09/2013 23:59:59 CLS Outpatient PHILIP CATHERINE MD [id number] 04/09/2013 07:54:00 04/09/2013 23:59:59 CLS Outpatient PHILIP CATHERINE MD [id number] 09/09/2012 08:54:00 09/09/2012 23:59:59 CLS Outpatient GILDA GARCIA APRN [id number] 09/09/2012 08:54:00 09/09/2012 23:59:59 CLS Outpatient GILDA GARCIA APRN [id number] 06/17/2012 09:20:00 06/17/2012 23:59:59 CLS Outpatient GRAMAJO DOSABRA Maria Dolores [id number] 06/17/2012 09:20:00 06/17/2012 23:59:59 CLS Outpatient [id number] 04/09/2013 07:54:00 Document Registration [id number] 01/05/2013 08:03:00 Document Registration [id number] 12/04/2012 15:48:00 Document Registration [id number] 12/04/2012 15:48:00 Document Registration [id number] 02/20/2019 10:00:00 02/20/2019 23:59:59 CLS Outpatient DORENE HUTCHINSON, PHILIP CHCMaria Dolores [facility] [id number] 06/30/2018 09:20:00 Document Registration [id number] 03/21/2016 05:47:00 03/24/2016 09:45:00 DIS Inpatient AURA CASTILLO MD [facility] 4TH LEFT KNEE SOA [id number] 03/14/2016 08:59:00 03/14/2016 12:26:00 DIS Outpatient AURA CASTILLO MD [facility] PREOP LEFT KNEE SOA [id number] 09/14/2015 07:50:00 09/17/2015 10:54:00 DIS Inpatient AURA CASTILLO MD [facility] 4TH RIGHT TOTAL KNEE OSTEOARTHRITIS [id number] 09/07/2015 09:33:00 09/07/2015 23:59:59 CLS Outpatient AURA CASTILLO MD [facility] PREOP RIGHT TOTAL KNEE [id number] 07/09/2015 11:53:00 07/09/2015 13:30:00 DIS Emergency ANNI SALAZAR [employer] [facility] ER [id number] 04/15/2015 07:34:00 04/15/2015 08:14:00 DIS Outpatient MONICA SIMS MD [facility] CARD [id number] 04/23/2014 07:00:00 04/23/2014 07:48:00 DIS Outpatient MONICA SIMS MD [facility] CARD [id number] 02/05/2014 06:37:00 02/05/2014 07:48:00 DIS Outpatient MONICA SIMS MD [facility] CARD [id number] 12/18/2013 09:51:00 12/18/2013 23:59:59 CLS Outpatient MONICA SIMS MD [facility] CARD [id number] 12/04/2013 08:50:00 12/04/2013 11:40:00 DIS Emergency ANNI SALAZAR [employer] [facility] ER [id number] 10/12/2013 11:23:00 10/12/2013 23:59:59 CLS Outpatient MONICA SIMS MD [facility] CARD [id number] 07/29/2013 11:49:00 07/29/2013 23:59:59 CLS Outpatient MARGIE MERCADO, ZIGGY Duran [facility] RAD [id number] 07/23/2013 11:30:00 07/23/2013 13:05:00 DIS Emergency ANDRES HUTCHINSON, SERGEY Whitten [facility] ER [id number] 05/23/2013 11:46:00 05/23/2013 14:32:00 DIS Emergency JAY HUTCHINSON, CHRISTOPHER Perez [facility] ER [id number] 05/08/2013 14:27:00 05/12/2013 14:53:00 DIS Outpatient GILDA GARCIA [facility] REHAB [id number] 04/13/2013 11:55:00 04/13/2013 14:09:00 DIS Emergency ROCÍO HUTCHINSON, ZIGGY Person [facility] ER [id number] 02/01/2013 19:37:00 02/01/2013 21:18:00 DIS Emergency SWETA HUTCHINSON, MARYLIN Groves [facility] ER [id number] 03/05/2019 07:30:00 Document Registration [id number] 04/11/2010 18:09:00 Document Registration
[2019-03-05] MEDS ORDERED: ONDANSETRON 4 MG/2 ML (SDV) Z0FRAN IV PRN (11:15)
[2019-03-05] MEDS: fentaNYL INJECTION 100 MCG/2 ML AMP IV PRN ×2 (11:20→20:41)
--- NOTE | 2019-03-05 12:01 | HISTORY AND PHYSICAL ---
DATE OF SERVICE: 03/05/2019 ATTENDING PRIMARY CARE PHYSICIAN: Dr. Townsend. HISTORY OF PRESENT ILLNESS: The patient is a 68-year-old female, who presented to the Emergency Department with epigastric pain, which started last night. She states that she did have a Dairy Gordon and then a few hours later, did have the epigastric pain with radiation towards the back and also had episodes of nausea and vomiting. She also reports that the pain had moved also to the right upper abdominal quadrant. An ultrasound was performed, which did show multiple gallstones. Laboratory work did show slight elevation of white count of 12.2. Liver function enzymes are normal. Upon further questioning, she reports that she has had similar symptoms before in the past; however, less severe. PAST MEDICAL HISTORY: Hypertension, diabetes, hypercholesterolemia, degenerative joint disease. PAST SURGERIES: Left carpal tunnel release, right total knee arthroplasty. ALLERGIES: CODEINE CAUSES NAUSEA. MEDICATIONS: Metformin 500 mg b.i.d., oxycodone p.r.n., quinapril 20 mg daily, venlafaxine 75 mcg daily. SOCIAL HISTORY: Negative smoke, negative alcohol. FAMILY HISTORY: Noncontributory. REVIEW OF SYSTEMS: This is a well-nourished female, currently in no acute distress. She is not experiencing any shortness of breath or difficulty breathing. No chest pain, palpitations, or diaphoresis. Pain in the epigastric as well as right upper abdominal quadrant with radiation towards the back with associated nausea and vomiting of undigested food and bilious material. No hematemesis, no coffee-ground emesis. No diarrhea or constipation. No red blood per rectum, no dark tarry stools. No fever, chills, no recent inadvertent weight loss. PHYSICAL EXAMINATION: VITAL SIGNS: Temperature 99.1, blood pressure 160/91, pulse 59, respirations 18, pulse ox 97% on room air. CHEST: Clear. Good breath sounds bilaterally. HEART: Regular, no murmurs. EXTREMITIES: No lower extremity edema, negative Homans sign. HEENT: No scleral icterus. NECK: No cervical lymphadenopathy. ABDOMEN: Soft, nondistended. There is pain in the right upper abdominal quadrant with voluntary guarding, no rebound. No peritoneal signs. SKIN: Warm, dry. LABORATORY DATA: WBC 12.2, hemoglobin 14.1, hematocrit 41, platelets 280. BUN 13, creatinine 0.77. ASSESSMENT AND PLAN: A 68-year-old female with symptomatic chronic cholecystitis. The natural history of gallbladder disease was explained to the patient including the risks and benefits of surgery. She is in full understanding of this and would like to proceed with a laparoscopic cholecystectomy, which we will proceed with. Job ID: [id number] DocumentID: [id number] Dictated Date: 03/05/2019 10:16:13 Field Care Manager Date: 03/05/2019 12:01:09 Dictated By: KARLOS ALEJO MD
[2019-03-05] MEDS ORDERED: OMEP40CA36 PO (12:52)
[2019-03-05] MEDS ORDERED: QUIN20TA16 PO (12:52)
[2019-03-05] MEDS ORDERED: METF500T8 PO (12:52)
[2019-03-05] MEDS ORDERED: OXYC-471 PO (12:52)
[2019-03-05] MEDS ORDERED: CELE-63 PO (12:52)
[2019-03-05] MEDS ORDERED: VENL75CA93 PO (12:52)
[2019-03-05] MEDS: LACTATED RINGERS 1,000 ML IV PRN ×2 (12:55→15:30)
--- NOTE | 2019-03-05 12:56 | NUR ---
SPOKE WITH THE PATIENT ABOUT HER MEDICATIONS. WE WENT OVER THE EXT MED HX AND SHE VERIFIED HOW SHE TAKES THEM. SHE FILLED PRAVASTATIN 20MG #90 11-05-18 - SHE STATES SHE DID TAKE IT BUT THEY NEVER REFILLED IT AND SHE IS NOT SURE WHY, SHE HAS NOT BEEN TAKING IT RECENTLY SO I DID NOT INCLUDE IT ON THE MED REC.
[2019-03-05] MEDS ORDERED: BUP/EPI 0.5% 1:200,000 (SENSORCAINE) 30 ML VIAL ONE (13:25)
[2019-03-05] MEDS ORDERED: proPOfol 200 MG/20 ML (DIPRIVAN) VIAL IV ONE (13:26)
[2019-03-05] MEDS ORDERED: LIDOCAINE PF 2% 5 ML (XYLOCAINE) VIAL ONE (13:26)
[2019-03-05] MEDS ORDERED: ONDANSETRON 4 MG/2 ML (SDV) Z0FRAN ONE (13:29)
[2019-03-05] MEDS ORDERED: ROCURONIUM 10 MG/ML 5 ML SYRINGE IV ONE (13:29)
[2019-03-05] MEDS ORDERED: DEXAMETHASONE 10 MG/ML (DECADRON) 1 ML VIAL ONE (13:29)
[2019-03-05] MEDS ORDERED: fentaNYL INJECTION 100 MCG/2 ML AMP ONE (13:29)
[2019-03-05] MEDS ORDERED: MIDAZOLAM 2 MG/2 ML (VERSED) VIAL ONE (13:30)
[2019-03-05] MEDS ORDERED: SEVOFLURANE (ULTANE) 15 ML INHAL SOLN ONE (13:31)
[2019-03-05] MEDS ORDERED: ceFAZolin INJECTION 2,000 MG ONE (13:45)
[2019-03-05] MEDS ORDERED: OXYC-464 PO (14:29)
--- NOTE | 2019-03-05 14:29 | Discharge Inst-Surgical ---
D/C Lap Instructions-SAPNA New, Converted, or Re-Newed RX: RX on Chart Follow Up Appt in 2 weeks Activity as tolerated No driving for 24 hours No driving while on pain medications Incentive Spirometry use every 2 hours while awake Regular Diet Symptoms to Report: Fever over 101 degree F, Nausea/Vomiting Infection Signs and Symptoms to report: Increased redness, Foul odor of wound, Increased drainage Bathing instructions: May shower Operative Area Clean/Dry; Keep incision clean/dry If any problems/questions: Contact your physician or go to Emergency Room KARLOS ALEJO MD Mar 05, 2019 14:29
[2019-03-05] MEDS ORDERED: ceFAZolin 2 GM/50 ML NS 50 ML IV ONE (15:00)
--- NOTE | 2019-03-05 15:36 | Progress Note-Post Operative ---
Post-Operative Progess Note Surgeon (s)/Poll Clerk (s) Surgeon KARLOS ALEJO MD Poll Clerk: puneet calixto DYNAM[employer] AX DEVELOPER Pre-Operative Diagnosis symptomatic chronic calculous cholecystitis Post-Operative Diagnosis same Procedure & Operative Findings Date of Procedure 03/05/19 Procedure Performed/Findings laparoscopic cholecystectomy Anesthesia Type GET Estimated Blood Loss Estimated blood loss (mL): minimal Specimens/Packing Specimens Removed gallbladder KARLOS ALEJO MD Mar 05, 2019 15:36
[2019-03-05] MEDS ORDERED: HYDROmorphone 2 MG/ML VIAL (DILAUDID) IV ONE (16:00)
[2019-03-05] MEDS ORDERED: ONDANSETRON 4 MG/2 ML (SDV) Z0FRAN IVP PRN (16:00)
--- NOTE | 2019-03-05 16:45 | NUR ---
Patient returned from surgery and sister Arlin took her 2 gold colored rings home with her to keep them safe.
--- NOTE | 2019-03-05 20:26 | OPERATIVE REPORT ---
DATE OF SERVICE: 03/05/2019 ATTENDING PHYSICIAN: Dr. Townsend. PREOPERATIVE DIAGNOSIS: Symptomatic chronic calculous cholecystitis. POSTOPERATIVE DIAGNOSIS: Symptomatic acute calculous cholecystitis. PROCEDURE: Laparoscopic cholecystectomy. SURGEON: Grzegorz Smyth MD SEED AND FERTILIZER SPECIALIST: Tre Jackson APRN. ANESTHESIA: General endotracheal. ESTIMATED BLOOD LOSS: 50 mL. FINDINGS: A distended gallbladder with inflammation of the gallbladder wall as well as hydrops of the gallbladder and multiple gallstones. There was gallbladder wall thickening consistent with acute cholecystitis. DISPOSITION: The patient tolerated the procedure well. INDICATIONS: The patient is a 68-year-old female who presented to the emergency department with epigastric pain starting last night. She had dairy cream and a few hours later had epigastric pain, which then began to radiate towards the right upper abdominal quadrant as well as towards the back and this was also followed by nausea and vomiting. An ultrasound was performed, which did show multiple gallstones. She did have a slight elevation of white count of 12.2. Her liver function enzymes are normal. Upon further questioning, she has had minor episodes of this type of discomfort in the past as well. DESCRIPTION OF PROCEDURE: The patient was brought to the operating room, laid supine on the table. After adequate IV pain and sedating medications and general endotracheal intubation, the abdomen was prepped and draped in standard surgical fashion. A 0.5% Marcaine with epinephrine was then used to anesthetize the overlying skin in the left upper abdominal quadrant. The Veress needle inserted with a low opening pressure of 0 mmHg. The abdomen was then insufflated to 15 mmHg pressure. The Veress needle removed and a 5 mm Xcel trocar placed followed by a 5 mm 45 degree angle laparoscope visualizing the peritoneal cavity. A 4-quadrant abdominal exploration was performed. An edematous and distended gallbladder with significant inflammatory changes was identified consistent with an acute cholecystitis. There was hepatomegaly. It was visualized the stomach and omentum were normal. Under direct visualization, we then proceeded to place a supraumbilical 10 mm port after the skin and peritoneal lining were anesthetized using 0.5% Marcaine with epinephrine and a transverse skin incision made using a 15 blade. In a similar manner, a right upper abdominal quadrant 5 mm port was placed. The patient was then placed in a reverse Trendelenburg position as well as plane right side up, left side down. The fundus of the gallbladder was then retracted anteriorly and superiorly. The omental adhesions to the gallbladder were then taken down using blunt dissection as well as electrocautery on the hook instrument. The gallbladder had to be decompressed with a laparoscopic needle as well as suction tubing where there was significant amount of clear fluid evacuated consistent with hydrops of the gallbladder. We then proceeded with dissection of the hepatoduodenal ligament using blunt dissection as well as electrocautery on the hook instrument. The entire critical view of safety was identified including the cystic duct and artery as the only two structures going into the gallbladder, the triangle of calot, as well as the cystic plate behind the proximal gallbladder. A timeout was then taken and the cystic duct and artery were then clipped proximally and distally and cut with EndoShears. The gallbladder was then dissected off the liver bed using cautery and hook instrument with visualization of good hemostasis as well as no leaking ducts of Luschka. The gallbladder was removed through the 10 mm port site using an EndoCatch bag. The gallbladder was examined on the back table with thickened gallbladder wall as well as multiple gallstones consistent with acute cholecystitis. The fascia and peritoneum to the 10 mm port site were then closed under direct visualization using a Bryan-Amisha device and then an 0 Vicryl suture. The abdomen was then desufflated and remaining ports removed. All skin incisions were closed using 4-0 Monocryl running subcuticular sutures. Wounds were then cleaned and covered with Dermabond. The patient tolerated the procedure well. We will start IV and oral pain medication as well as a clear liquid diet. Once she is tolerating clears, has good pain control with oral pain medications, and is ambulating well, we will discharge her home. She will be instructed to do no heavy lifting or exertion for the next two weeks. Job ID: [id number] DocumentID: [id number] Dictated Date: 03/05/2019 15:48:12 Epic Anesthesia Analyst Date: 03/05/2019 20:25:44 Dictated By: MD MATHEW KINNEY
[2019-03-06] VITALS: BP 131/77
[2019-03-06] MEDS ORDERED: QUINAPRIL 20 MG (ACCUPRIL) TAB PO ONE (01:30)
[2019-03-06] MEDS: fentaNYL INJECTION 100 MCG/2 ML AMP IV PRN ×2 (01:50→08:08)
[2019-03-06 04:00] VITALS: BP 152/74
[2019-03-06 07:45] LABS: CHOLESTEROL 177 MG/DL (< 200); HDL CHOLESTEROL 49 MG/DL (40-60); TRIGLYCERIDES 94 MG/DL (<150); VLDL CHOLESTEROL 19 MG/DL (5-40)
[2019-03-06 08:00] VITALS: BP 138/56
[2019-03-06] MEDS ORDERED: metFORMIN XR 500 MG (GLUCOPHAGE XR) TAB PO SCH (09:00)
[2019-03-06] MEDS ORDERED: lisINopril 20 MG (PRINIVIL) TABLET PO SCH (09:00)
[2019-03-06] MEDS ORDERED: QUINAPRIL HCL 20 MG PO SCH (09:00)
[2019-03-06] MEDS ORDERED: QUINAPRIL 20 MG (ACCUPRIL) TAB PO SCH (09:00)
--- NOTE | 2019-03-06 11:12 | Progress Note ---
Subjective Date Seen by a Provider: Mar 06, 2019 Time Seen by a Provider: 10:00 Subjective/Events-last exam doing well. pain controlled. tolerating diet. no fever/chills. Objective Exam Vital Signs Date Time Temp Pulse Resp B/P (MAP) Pulse Ox O2 Delivery O2 Flow Rate FiO2 03/06/19 08:00 98.1 74 20 138/56 (83) 92 Nasal Cannula 3.00 03/06/19 04:00 97.4 63 18 152/74 (100) 96 Nasal Cannula 3.00 03/06/19 00:00 98.0 63 16 131/77 (95) 95 Nasal Cannula 3.00 03/05/19 21:29 Nasal Cannula 3.00 03/05/19 20:29 96.2 65 18 133/83 (100) 96 Nasal Cannula 3.00 03/05/19 20:00 Nasal Cannula 1.50 03/05/19 18:14 96.1 67 18 163/80 (107) 96 Nasal Cannula 3.00 03/05/19 16:45 OxyMask 10 03/05/19 16:38 97.7 16 96 Nasal Cannula 3 03/05/19 16:28 16 98 OxyMask 10 03/05/19 16:18 14 98 OxyMask 10 03/05/19 16:18 OxyMask 10 03/05/19 16:08 16 97 OxyMask 10 03/05/19 15:58 16 97 OxyMask 10 03/05/19 15:48 OxyMask 10 03/05/19 15:48 97.1 20 97 OxyMask 10 03/05/19 13:00 Room Air I & O 03/06/19 07:00 Intake Total 2875 ml Balance 2875 ml Capillary Refill : Less Than 3 Seconds General Appearance: No Apparent Distress HEENT: PERRL/EOMI Neck: Full Range of Motion Respiratory: Chest Non Tender, Normal Breath Sounds Cardiovascular: Regular Rate, Rhythm Gastrointestinal: normal bowel sounds, soft, tenderness Extremity: Normal Capillary Refill Neurologic/Psychiatric: Alert, Oriented x3 Skin: Normal Color Lymphatic: No Adenopathy Results Lab Laboratory Tests 03/06/19 07:06: Triglycerides Level 94, Cholesterol Level 177, LDL Cholesterol Direct 120, VLDL Cholesterol 19, HDL Cholesterol 49 Assessment/Plan Assessment/Plan Assess & Plan/Chief Complaint s/p lap eboni for acute calculous cholecystitis. advance diet. ambulate. home when criteria met. Clinical Quality Measures AMI/AHF: ASA po Prior to arrival: No DVT/VTE Risk/Contraindication: Risk Factor Score Per Nursin RFS Level Per Nursing on Admit: 4+=Very High KARLOS ALEJO MD Mar 06, 2019 11:12
[2019-03-06 12:08] VITALS: BP 138/56
--- NOTE | 2019-03-06 13:42 | Anesthesia-General Post-Op ---
General Patient Condition Mental Status/LOC: Same as Preop Cardiovascular: Satisfactory Nausea/Vomiting: Absent Respiratory: Satisfactory Pain: Controlled Complications: Absent Post Op Complications Complications None Follow Up Care/Instructions Patient Instructions None needed. Anesthesia/Patient Condition Patient Condition Patient is doing well, no complaints, stable vital signs, no apparent adverse anesthesia problems. No complications reported per nursing. HOWARD SINGH CRNA Mar 06, 2019 13:42
== END 2019-03-06 12:08 | disposition home or self-care (01) ==
LOC: EDUNIT# 07:14 → ER 07:15 → SDC 10:33 → 4TH 11:15 → SDC 03-06 12:08 → 4TH 03-06 13:09
PROVIDERS: ATTEND Surgery
DX: K80.00 Calculus of gallbladder with acute cholecystitis without obstruction (principal); K82.1 Hydrops of gallbladder; I10 Essential (primary) hypertension; E11.40 Type 2 diabetes mellitus with diabetic neuropathy, unspecified; E78.00 Pure hypercholesterolemia, unspecified; M19.91 Primary osteoarthritis, unspecified site; E78.5 Hyperlipidemia, unspecified; F32.9 Major depressive disorder, single episode, unspecified; M54.9 Dorsalgia, unspecified; K21.9 Gastro-esophageal reflux disease without esophagitis; Z79.899 Other long term (current) drug therapy; Z79.84 Long term (current) use of oral hypoglycemic drugs; Z96.651 Presence of right artificial knee joint; Z87.440 Personal history of urinary (tract) infections; Z88.5 Allergy status to narcotic agent
CPT/HCPCS: 36415; 71045; 76705; 80053; 80061; 83690; 83735; 83874; 84484; 85025; 85610; 85730; 93005; 93041; 96361; 96374; 96375; 96376

== ENCOUNTER 2020-03-07 15:50 | Emergency (ER) | payer MEDICARE ==
[~2020-03-07] VITALS: Ht 162 cm; Wt 115.0 kg
[~2020-03-07 15:50] MED LIST changes: +CELE-63 PO; +METF-865 PO; +OMEP40CA27 PO; +OXYB5TAB13 PO; -OXYB5TAB9 PO; +OXYC-464 PO; +OXYC-471 PO; +QUIN20TA16 PO; +VENL75CA93 PO
[2020-03-07] MEDS ORDERED: NS IV 1000 ML 1,000 ML IV SCH (16:05)
[2020-03-07 16:13] LABS: BASOPHILS % (AUTO) 0 % (0-10); EOSINOPHILS # (AUTO) 0.2 10^3/uL (0.0-0.3); EOSINOPHILS % (AUTO) 3 % (0-10); HEMATOCRIT 40 % (35-52); HEMOGLOBIN 13.6 G/DL (11.5-16.0); LYMPHOCYTES # (AUTO) 2.1 X 10^3 (1.0-4.0); LYMPHOCYTES % (AUTO) 28 % (12-44); MEAN CORPUSCULAR HEMOGLOBIN 29 PG (25-34); MEAN CORPUSCULAR HGB CONC 34 G/DL (32-36); MEAN CORPUSCULAR VOLUME 86 FL (80-99); MEAN PLATELET VOLUME 8.7 FL (7.4-10.4); MONOCYTES # (AUTO) 0.7 X 10^3 (0.0-1.0); MONOCYTES % (AUTO) 9 % (0-12); NEUTROPHILS # (AUTO) 4.6 X 10^3 (1.8-7.8); NEUTROPHILS % (AUTO) 61 % (42-75); PLATELET COUNT 292 10^3/uL (130-400); RED CELL DISTRIBUTION WIDTH 14.9 % (10.0-14.5); WHITE BLOOD COUNT 7.6 10^3/uL (4.3-11.0)
--- NOTE | 2020-03-07 16:13 | ED GU-Female ---
General Chief Complaint: Abdominal/GI Problems Stated Complaint: DX W/ UTI/BACK PAIN Source: patient Exam Limitations: no limitations (HARDIK OCHOA) History of Present Illness Date Seen by Provider: Mar 07, 2020 Time Seen by Provider: 15:58 Initial Comments Patient presents to ER by private conveyance with chief complaint that last week she was diagnosed with UTI for some dysuria and general malaise symptoms by her primary care office at [facility] [place]. He put her on Cipro Floxin which she's been taking for about 7 days. Now she says she's having pain in her right flank down into her right groin. No blood in the urine. No history of kidney stones. She had some pain was so intense that it caused her to vomit. She's not having nausea now. She rates her pain is 5 out of 10 in her right flank. No fevers or chills. (HARDIK OCHOA) Allergies and Home Medications Allergies Coded Allergies: codeine (Unverified Adverse Reaction, Severe, NAUSEA, 03/14/16) Home Medications Celecoxib 200 Mg Capsule, 200 MG PO DAILY, (Reported) Metformin HCl 500 Mg Tab.er.24h, 1,000 MG PO BID, (Reported) TAKES 2 (500MG) TABLETS Omeprazole 40 Mg Capsule.dr, 40 MG PO DAILY, (Reported) Oxycodone HCl/Acetaminophen 1 Each Tablet, 1 TAB PO BID PRN for PAIN-MODERATE, (Reported) Oxycodone HCl/Acetaminophen 1 Each Tablet, 1 EACH PO Q6H PRN for PAIN-MODERATE Prescribed by: KARLOS ALEJO on 03/05/19 1429 Quinapril HCl 20 Mg Tablet, 20 MG PO DAILY, (Reported) Venlafaxine HCl 75 Mg Cap.er.24h, 75 MG PO DAILY, (Reported) Patient Home Medication List Home Medication List Reviewed: Yes (HARDIK OCHOA) Review of Systems Review of Systems Constitutional: No chills, No fever Respiratory: No cough, No short of breath Cardiovascular: No chest pain, No palpitations Gastrointestinal: No abdominal pain, No nausea Genitourinary: denies discharge, denies dysuria Musculoskeletal: see HPI, back pain; No joint pain (HARDIK OCHOA) All Other Systemes Reviewed Negative Unless Noted: Yes (HARDIK OCHOA) Past Xvbzlgo-Vpktqn-Slmhxa Hx Patient Social History Alcohol Use: Denies Use Recreational Drug Use: No Smoking Status: Never a Smoker Recent Foreign Travel: No Contact w/Someone Who Travel: No Recent Hopitalizations: No (HARDIK OCHOA) Immunizations Up To Date Tetanus Booster (TDap): Unknown Date of Pneumonia Vaccine: Aug 26, 2012 Date of Influenza Vaccine: May 26, 2015 (HARDIK OCHOA) Seasonal Allergies Seasonal Allergies: No (HARDIK OCHOA) Past Medical History Surgeries: Yes (LEFT CARPAL TUNNEL, RIGHT TOTAL KNEE) Orthopedic Respiratory: No Cardiac: Yes High Cholesterol, Hypertension Neurological: No Reproductive Disorders: No Female Reproductive Disorders: Denies [employer] History: Menopausal Sexually Transmitted Disease: No HIV/AIDS: No Genitourinary: Yes UTI-Chronic Gastrointestinal: Yes Gastroesophageal Reflux Musculoskeletal: Yes (PINCHED NERVE IN BACK, 2 BULGING DISCS, OSTEOARTHRITIS IN LEFT KNEE) Degenerate Disk Disease, Arthritis, Chronic Back Pain Endocrine: Yes Diabetes, Non-Insulin dep Loss of Vision: Bilateral Hearing Impairment: Denies Cancer: No Psychosocial: Yes Depression Integumentary: No Blood Disorders: No Adverse Reaction/Blood Tranf: No (N/A) (HARDIK OCHOA) Family Medical History Arthritis 19 MOTHER Cardiovascular disease 19 FATHER Dementia 19 MOTHER Diabetes mellitus 19 MOTHER G8 BROTHER Hypertension 19 MOTHER G8 BROTHER Physical Exam Vital Signs Vital Signs - First Documented 03/07/20 16:04 Temp 36.5 Pulse 68 Resp 18 B/P (MAP) 130/105 (113) Pulse Ox 96 (ANNI SALAZAR APRN) Vital Signs Capillary Refill : (HARDIK OCHOA) Height, Weight, BMI Height: 5'4.00" Weight: 240lbs. 9.0oz. 109.919019vg; 41.3 BMI Method:Stated General Appearance: WD/WN, no apparent distress HEENT: normal ENT inspection, pharynx normal Neck: full range of motion, normal inspection Cardiovascular: normal peripheral pulses, regular rate, rhythm Respiratory: lungs clear, normal breath sounds, no respiratory distress, no accessory muscle use Back: normal inspection, CVA tenderness (R) Extremities: normal range of motion, non-tender, normal capillary refill Neurologic/Psychiatric: alert, normal mood/affect, oriented x 3 (HARDIK OCHOA) Progress/Results/Core Measures Suspected Sepsis SIRS Temperature: Pulse: Respiratory Rate: Blood Pressure / Mean: (HARDIK OCHOA) Results/Orders Lab Results Laboratory Tests Test 03/07/20 15:59 03/07/20 16:08 Range/Units Urine Color YELLOW Urine Clarity SL CLOUDY Urine pH 7.0 5-9 Urine Specific [place] 1.015 L 1.016-1.022 Urine Protein NEGATIVE NEGATIVE Urine Glucose (UA) TRACE H NEGATIVE Urine Ketones NEGATIVE NEGATIVE Urine Nitrite NEGATIVE NEGATIVE Urine Bilirubin NEGATIVE NEGATIVE Urine Urobilinogen 0.2 < = 1.0 MG/DL Urine Leukocyte Esterase 2+ H NEGATIVE Urine RBC (Auto) NEGATIVE NEGATIVE Urine RBC NONE /HPF Urine WBC 5-10 H /HPF Urine Crystals PRESENT H /LPF Urine Amorphous Sediment FEW SYDNEE PHOSPHATE H /LPF Urine Bacteria FEW H /HPF Urine Casts NONE /LPF Urine Mucus NEGATIVE /LPF Urine Culture Indicated YES White Blood Count 7.6 4.3-11.0 10^3/uL Red Blood Count 4.66 4.35-5.85 10^6/uL Hemoglobin 13.6 11.5-16.0 G/DL Hematocrit 40 35-52 % Mean Corpuscular Volume 86 80-99 FL Mean Corpuscular Hemoglobin 29 25-34 PG Mean Corpuscular Hemoglobin Concent 34 32-36 G/DL Red Cell Distribution Width 14.9 H 10.0-14.5 % Platelet Count 292 130-400 10^3/uL Mean Platelet Volume 8.7 7.4-10.4 FL Neutrophils (%) (Auto) 61 42-75 % Lymphocytes (%) (Auto) 28 12-44 % Monocytes (%) (Auto) 9 0-12 % Eosinophils (%) (Auto) 3 0-10 % Basophils (%) (Auto) 0 0-10 % Neutrophils # (Auto) 4.6 1.8-7.8 X 10^3 Lymphocytes # (Auto) 2.1 1.0-4.0 X 10^3 Monocytes # (Auto) 0.7 0.0-1.0 X 10^3 Eosinophils # (Auto) 0.2 0.0-0.3 10^3/uL Basophils # (Auto) 0.0 0.0-0.1 10^3/uL Sodium Level 139 135-145 MMOL/L Potassium Level 4.2 3.6-5.0 MMOL/L Chloride Level 101 98-107 MMOL/L Carbon Dioxide Level 26 21-32 MMOL/L Anion Gap 12 5-14 MMOL/L Blood Urea Nitrogen 15 7-18 MG/DL Creatinine 0.80 0.60-1.30 MG/DL Estimat Glomerular Filtration Rate > 60 BUN/Creatinine Ratio 19 Glucose Level 145 H 70-105 MG/DL Calcium Level 9.9 8.5-10.1 MG/DL Corrected Calcium 10.0 8.5-10.1 MG/DL Total Bilirubin 0.2 0.1-1.0 MG/DL Aspartate Amino Transf (AST/SGOT) 21 5-34 U/L Alanine Aminotransferase (ALT/SGPT) 15 0-55 U/L Alkaline Phosphatase 86 40-136 U/L Total Protein 7.2 6.4-8.2 GM/DL Albumin 3.9 3.2-4.5 GM/DL (ANNI SALAZAR APRN) My Orders Orders - ANNI SALAZAR APRN Ct Abdomen/Pelvis W Wo (03/07/20 17:00) Iohexol Injection (Omnipaque 350 Mg/Ml 1 (03/07/20 17:15) Received Contrast (Hold Metformin- Contr (03/07/20 17:15) Ns (Ivpb) (Sodium Chloride 0.9% Ivpb Bag (03/07/20 17:15) (ANNI SALAZAR APRN) Medications Given in ED Current Medications Medications Dose Ordered Sig/Melvin Route Start Time Stop Time Status Last Admin Dose Admin Ceftriaxone Sodium 1000 mg/ Sterile Water 10 ml @ 200 mls/hr ONCE ONCE IV 03/07/20 16:15 03/07/20 16:17 DC 03/07/20 16:27 200 MLS/HR Iohexol 100 ml ONCE ONCE IV 03/07/20 17:15 03/07/20 17:16 DC 03/07/20 17:32 100 ML Sodium Chloride 100 ml ONCE ONCE IV 03/07/20 17:15 03/07/20 17:16 DC 03/07/20 17:33 100 ML (ANNI SALAZAR APRN) Vital Signs/I&O 03/07/20 16:04 Temp 36.5 Pulse 68 Resp 18 B/P (MAP) 130/105 (113) Pulse Ox 96 (ANNI SALAZAR APRN) Vital Signs/I&O Capillary Refill : (HARDIK OCHOA) Progress Note : Time: 16:11 Progress Note We did reach out to [facility] [place] and while the urine culture is resistant to second generation cephalosporins it was pansensitive Escherichia coli. Plan to give her a gram or Rocephin and some IV fluids and check some basic labs. She has aseptic vital signs. Unlikely she developed a kidney stone is more likely because of the pattern versus pyelonephritis. Cipro Floxin should've worked which means there could be another bug. If her labs are off for her pain does not improve we may consider adding a CT scan with and without IV contrast. (HARDIK OCHOA) Departure Impression Primary Impression: Recurrent UTI Additional Impression: Right flank pain Disposition: HOME, SELF-CARE Condition: Stable Departure-Patient Inst. Decision time for Depature: 17:53 (ANNI SALAZAR APRN) Referrals: PHILIP CATHERINE MD (PCP) Primary Care Physician AARON DWYER (Family) Primary Care Physician Patient Instructions: No Instuctions Given Add. Discharge Instructions: If you Have recurrent urinary tract infections, talk with your family doctor about starting a daily antibiotic to prevent urinary tract infections. Return to ER for any worsening or other concerns. Her back pain seems to be unrelated to the kidney, no kidney stones or infection in the kidney are seen. This may result from a bulging disc in her back called radiculopathy. Continue your current antibiotics. Your urinary tract infection today is mild so it would seem that it is improving. This does warrant follow-up with primary care within the next 48 hours for recheck. All discharge instructions reviewed with patient and/or family. Voiced understanding. Scripts Naproxen (Naprosyn) 500 Mg Tablet 500 MG PO BID, #30 TAB 0 Refills Prov: ANNI SALAZAR APRN 03/07/20 HARDIK OCHOA Mar 07, 2020 16:13 ANNI SALAZAR APRN Mar 07, 2020 17:55
[2020-03-07] MEDS ORDERED: cefTRIAXone FOR IV USE 1,000 MG in WATER (STERILE) FOR INJECTION 10 ML IV ONE (16:15)
[2020-03-07 16:22] LABS: ALBUMIN 3.9 GM/DL (3.2-4.5); CHLORIDE 101 MMOL/L (98-107); POTASSIUM 4.2 MMOL/L (3.6-5.0); SODIUM 139 MMOL/L (135-145)
[2020-03-07 16:23] LABS: CALCIUM 9.9 MG/DL (8.5-10.1)
[2020-03-07 16:24] LABS: GLUCOSE 145 MG/DL (70-105); TOTAL PROTEIN 7.2 GM/DL (6.4-8.2)
[2020-03-07 16:25] LABS: CARBON DIOXIDE 26 MMOL/L (21-32)
[2020-03-07 16:26] LABS: BILIRUBIN,TOTAL 0.2 MG/DL (0.1-1.0)
[2020-03-07 16:26] LABS: BILIRUBIN,URINE NEGATIVE (NEGATIVE); CLARITY,URINE SL CLOUDY; COLOR,URINE YELLOW; GLUCOSE, URINE (UA) TRACE (NEGATIVE); KETONES,URINE NEGATIVE (NEGATIVE); LEUKOCYTE ESTERASE ,URINE 2+ (NEGATIVE); NITRITE,URINE NEGATIVE (NEGATIVE); PROTEIN,URINE NEGATIVE (NEGATIVE)
[2020-03-07 16:28] LABS: ALKALINE PHOSPHATASE 86 U/L (40-136); GFR ESTIMATED > 60
[2020-03-07 16:29] LABS: BUN/CREATININE RATIO 19
[2020-03-07 16:31] LABS: ALANINE AMINOTRANSFERASE 15 U/L (0-55)
[2020-03-07 16:53] LABS: AMORPHOUS SEDIMENT,UR FEW AMOR PHOSPHATE /LPF; BACTERIA,URINE FEW /HPF
[2020-03-07] MEDS ORDERED: IOHEXOL 350 MG/ML 100 ML (OMNIPAQUE 350) VIAL IV ONE (17:15)
[2020-03-07] MEDS ORDERED: NS 100 ML (IVPB) BAG IV ONE (17:15)
[2020-03-07] MEDS ORDERED: HOLD METFORMIN - RECEIVED CONTRAST 20 ML VIAL IV SCH (17:15)
--- NOTE | 2020-03-07 17:41 | Diagnostic Imaging Report ---
PROCEDURE: CT abdomen and pelvis with and without contrast. TECHNIQUE: Precontrast acquisitions were acquired through the abdomen and pelvis. Multiple contiguous axial images were obtained through the abdomen and pelvis after the administration of intravenous contrast. Auto Exposure Controls were utilized during the CT exam to meet ALARA standards for radiation dose reduction. INDICATION: Right posterior back pain. FINDINGS: Lung bases are clear. Liver appears normal. Gallbladder is surgically absent. Portal vein is patent. Common duct is not dilated. The pancreas appears normal. Spleen is not enlarged. Adrenals appear normal. Kidneys appear normal. Small bowel is not dilated. There is a moderate amount of stool throughout the colon. There is diverticulosis of the colon but no evidence of diverticulitis. Uterus is present. There is a small calcified uterine fibroid in anterior fundus. Adnexa are unremarkable. There is no intraperitoneal free air or free fluid. IMPRESSION: Colonic diverticulosis. Fecal stasis. No acute abnormalities seen. Dictated by: Dictated on workstation # [id number]
--- NOTE | 2020-03-07 17:48 | NUR ---
ASSUME CARE OF PT.
[2020-03-07] MEDS ORDERED: NAPR-1071 PO (17:55)
[2020-03-07 18:11] VITALS: BP 116/78
== END 2020-03-07 18:11 | disposition home or self-care (01) ==
LOC: EDUNIT# 15:50 → ER 15:51
DX: N39.0 Urinary tract infection, site not specified (principal); I10 Essential (primary) hypertension; K21.9 Gastro-esophageal reflux disease without esophagitis; M17.12 Unilateral primary osteoarthritis, left knee; E11.9 Type 2 diabetes mellitus without complications; F32.9 Major depressive disorder, single episode, unspecified; G89.29 Other chronic pain; M54.9 Dorsalgia, unspecified; Z88.5 Allergy status to narcotic agent; Z79.84 Long term (current) use of oral hypoglycemic drugs; Z82.49 Family history of ischemic heart disease and other diseases of the circulatory system
CPT/HCPCS: 36415; 74178; 80053; 81000; 85025; 87088